=== PATIENT | female | born 1950 | race Caucasian/White ===

== ENCOUNTER 2023-01-03 10:15 | Day surgery (SDC) | payer MEDICARE, OTHER, SELFPAY ==
[2023-01-03 11:15] VITALS: BP 166/97; PULSE 60; RESP 16; TEMP 36.7; O2SAT 97
--- NOTE | 2023-01-03 11:44 | W.PM.PROCNOT ---
Date of procedure: 01/03/23 Procedure: Bilateral Lumbar 4/5 & 5/Sacral 1 facet injection Preop diagnosis includes pain secondary to lumbar spondylosis, Postop diagnosis same Under fluoroscopic guidance Solution injected: 2millilitersMarcaine 0.25% Anesthesia :none Immediate complications none Time out process compliant After informed consent obtained from the patient placed in the Prone proposition . area was prepped and draped in a sterile fashion using betadine. 25 gauge spinal needle inserted over each of the above mentioned target areas . [place]rum[place] were directed towards the target under fluoroscopic guidance . after encountering each of the targets , no indication of intravascular intraneuronal or intrathecal needle tip placement. Then 0 .5 to 1 Milliliter was injected at each level. Crumpton removed postoperatively. patient transferred to recovery in stable condition to be discharged home after meeting criteria Surgeon: Philip Andres
[2023-01-03 11:45] VITALS: RESP 20
[2023-01-03] MEDS: BUPIVACAINE HCL 0.25% PF 25 MG/10 ML VIAL 8 ML INJ (11:45)
[2023-01-03 11:47] VITALS: BP 229/109; PULSE 63; PULSE 77; O2SAT 97
[2023-01-03 11:49] VITALS: BP 188/81
== END 2023-01-03 11:56 | disposition home or self-care (01) ==
LOC: SURGOUT 10:16
PROVIDERS: PCP Internal Medicine; Visit Provider Anesthesiology Pain Medicine
DX: M47.816 Spondylosis without myelopathy or radiculopathy, lumbar region (principal)
CPT/HCPCS: 64493; 64494

== ENCOUNTER 2023-01-17 13:12 | Outpatient (OUT) | payer MEDICARE, OTHER, SELFPAY ==
--- NOTE | 2023-01-17 17:49 | CONS_ITS ---
CONSULTATION DATE: ??01/17/2023 TO:? Jordan Castillo D.O. CHIEF COMPLAINT:? Includes left lower back pain, new onset right leg pain. HISTORY:? Patient returns today complaining of 5-7/10 pain, sharp in character in her lower back on the left side, described as sharp in character, increased with activities such as standing, walking and performing transitioning maneuvers.? Patient feels most comfortable in the semi-recumbent position.? Denies any change in bowel and bladder habits.? She does describe progressive numbness and weakness in the right lower extremity, which is new since her last visit, which is separate and distinct from her left lower back pain, which has been chronic.? IMPRESSION:? Patient with chronic pain secondary to lumbosacral spondylosis, facet joint loading pain clinically, left side worse than the right.? Patient has undergone two diagnostic medial branch blocks on the left side at L4-5, L5- S1.? She reports having at least 80% reduction in pain symptomatology in the immediate post procedural period, lasting for several hours, with recurrence of pain back to her baseline.? RECOMMENDATIONS:? I have also recommended she undergo a lumbosacral MRI without contrast to determine if there is a clinical etiology for the new onset right L5 radicular component.? In the interim, I have given her Elroy 5 mg pills, one t.i.d. p.r.n., not for daily use.? I have given her 20 pills to last her one month?s time.? I have increased her gabapentin 300 mg one in the morning, three at bedtime. As part of providing excellent, safe, comprehensive care, the following was completed at our patient's visit: 1. A medication reconciliation and review to ensure accurate knowledge of current/active medications, including asking our patients to inform us about any zwxx-pcc-fcdfrlv medications or herbal remedies/nutritional supplements/alternative remedies. 2. A review to specifically ensure our patients have had annual screening for: elevated body mass index (BMI, see intake chart for exact total), tobacco use, screening for depression, and screening for unhealthy alcohol use.? When screening is concerning, patients are provided with education and the specific recommendation to discuss the concerning health issue and treatment options with their primary care provider. DESTINEE
== END 2023-01-17 13:13 | disposition home or self-care (01) ==
LOC: PM 13:12
PROVIDERS: PCP Internal Medicine; Visit Provider Anesthesiology Pain Medicine
DX: M54.50 Low back pain, unspecified (principal); M79.604 Pain in right leg
CPT/HCPCS: G0463

== ENCOUNTER 2023-01-19 07:38 | Outpatient (OUT) | payer MEDICARE, OTHER, SELFPAY ==
--- NOTE | 2023-01-19 07:41 | MR_ITS ---
[address] [address] Patient Name: CHRISTIAN FISCHER MRN: [id number] date: 1950 Sex: F Assigned Patient Location: MRI Current Patient Location: Accession/Order Number: [id number] Exam Date: 01/19/2023 07:55 Report Date: 01/20/2023 07:02 At the request of: ISIDRO PERDOMO Procedure: MR lumbar spine wo con EXAMINATION: MR lumbar spine wo con HISTORY: Lumbar Radiculopathy ; chronic lumbar pain with bilateral leg pain and weakness COMPARISON: MRI lumbar spine 06/03/2022 TECHNIQUE: Thin FINDINGS: For the purposes of numbering, sagittal T2 image # 10 extends from the T10-11 vertebral body superiorly to the S2-3 level inferiorly. PARASPINAL AREA: Normal with no visible mass. BONES: Mild left convex curvature of lumbar spine. Minimal grade 1 anterolisthesis of L4 on 5. No fracture. CORD/CAUDA EQUINA: Normal caliber, contour, and signal intensity. DISC LEVELS: 12-L1: Early degenerative disc disease is present without focal protrusion or neural impingement. L1-L2: Moderate-marked central canal narrowing with marked right and moderate left foramen narrowing. Moderate diffuse disc bulging and moderate disc height reduction. Mild degenerative facet arthropathy. L2-L3: Moderate central canal narrowing with marked right and mild left foramen narrowing. Mild diffuse disc bulging with moderate disc height reduction. Moderate right facet arthropathy and ligamentum flavum thickening, mild on left. L3-L4: Marked central canal and moderate-marked bilateral foramen narrowing. Moderate diffuse disc bulging with moderate disc height reduction. Marked degenerative facet arthropathy and ligamentum flavum thickening bilaterally. L4-L5: Mild central canal narrowing with moderate right and marked left foramen narrowing. Mild grade 1 anterolisthesis of L4 on 5. Moderate diffuse disc bulging with marked disc height reduction. Small left paracentral/foraminal extrusion displacing the descending left L5 nerve roots. Marked degenerative facet arthropathy, left greater than right. L5-S1: Mild central canal narrowing. Marked bilateral foramen narrowing, left greater than right. Moderate diffuse disc bulging with moderate disc height reduction. Marked bilateral facet arthropathy. MR/MR lumbar spine wo con IMPRESSION: 1. Multilevel moderate-marked central canal and foramen narrowing; stable to slightly progressed compared to prior study. Electronically authenticated by: BONNY SHORE Date: 01/20/2023 07:02
== END 2023-01-19 07:39 | disposition home or self-care (01) ==
LOC: MRI 07:38
PROVIDERS: PCP Internal Medicine; Visit Provider Anesthesiology Pain Medicine
DX: M47.26 Other spondylosis with radiculopathy, lumbar region (principal)
CPT/HCPCS: 72148

== ENCOUNTER 2023-01-24 10:25 | Day surgery (SDC) | payer MEDICARE, OTHER, SELFPAY ==
[2023-01-24 10:46] VITALS: BP 173/98; PULSE 86; RESP 16; TEMP 36.4; O2SAT 100
--- NOTE | 2023-01-24 10:57 | W.PM.PROCNOT ---
Date of procedure: 01/24/23 Pre-op diagnosis: Lumbar Spondylosis Post-op diagnosis: same Procedure: Left Lumbar L3,4,5 Radiofrequency Ablation Under fluoroscopic guidance Rhizotomy was created using radio frequency ablation at 80?C for 90 seconds 1 to 2 lesions created at each site. Post lesioning injection of 2 mL each of 0.25% Marcaine and 2% lidocaine with Depo-Medrol 40mg. 0.5 to 1 mL injected at each site Anesthesia: local 2% lidocaine Time out process compliant After informed consent obtained.Patient brought to the procedure room placed in the prone position skin overlying the area was prepped and draped in a sterile fashion using betadine. 25 gauge needle was used to create a skin wheal over each of the targeted areas utilizing 2% lidocaine. A rhizotomy needle with a 10 mm active tip was inserted over each of the anesthetized areas and directed towards each of the medial branches accomplished under fluoroscopic guidance. after encountering the same we had positive sensory stimulation, negative motor stimulation was noted. lesions were then created. Post lesioning, steroid solution was injected needles removed. Patient was transferred to recovery room in stable condition to be discharged home after meeting criteria. Surgeon: Philip Andres
[2023-01-24 11:18] VITALS: RESP 20
[2023-01-24 11:24] VITALS: BP 169/77; PULSE 66; O2SAT 97
[2023-01-24] MEDS: METHYLPREDNISOLONE ACETATE 40 MG/ML VIAL INJ (11:28)
[2023-01-24] MEDS: LIDOCAINE HCL 2% 400 MG/20 ML MDV 15 ML INJ (11:28)
[2023-01-24] MEDS: BUPIVACAINE HCL 0.25% PF 25 MG/10 ML VIAL 4 ML INJ (11:28)
[2023-01-24 11:30] VITALS: PULSE 42; O2SAT 93
[2023-01-24 11:32] VITALS: BP 94/55
--- NOTE | 2023-01-24 11:42 | PC.NURSE ---
PT BECAME KYRA CARDIC WITH NAUSEA, AND DIAPHORETIC PRIOR TO ABLATION CASE CANCELLED AFTER INJECTIONS GIVEN
[2023-01-24 11:48] VITALS: BP 128/78; PULSE 69; RESP 16; O2SAT 99
== END 2023-01-24 11:52 | disposition home or self-care (01) ==
LOC: SURGOUT 10:27
PROVIDERS: PCP Internal Medicine; Visit Provider Anesthesiology Pain Medicine
DX: M47.816 Spondylosis without myelopathy or radiculopathy, lumbar region (principal); Z53.09 Procedure and treatment not carried out because of other contraindication; R55 Syncope and collapse
CPT/HCPCS: 64635; 64636; J1030

== ENCOUNTER 2023-02-06 07:25 | Day surgery (SDC) | payer MEDICARE, OTHER, SELFPAY ==
[2023-02-06 07:39] VITALS: BP 146/91; PULSE 82; RESP 16; TEMP 36.7; O2SAT 98
[2023-02-06] MEDS: 0.9 % SODIUM CHLORIDE 500 ML 50 ML IV (07:51)
[2023-02-06] MEDS: BUPIVACAINE HCL 0.25% PF 25 MG/10 ML VIAL INJ (08:37)
[2023-02-06] MEDS: LIDOCAINE HCL 2% 400 MG/20 ML MDV 15 ML INJ (08:37)
[2023-02-06] MEDS: TRIAMCINOLONE ACETONIDE 40 MG/ML VIAL INJ (08:37)
--- NOTE | 2023-02-06 08:46 | P.ON_ITS ---
Date of procedure: 02/06/23 Pre-op diagnosis: Lumbosacral spondylosis Post-op diagnosis: same Procedure: Left L3-4, L4-5 radiofrequency ablation Medications: Bupivacaine 0.25% 3cc, kenalog 40mg The patient was seen and examined in the preoperative holding area.? The site was marked.? Written informed consent was obtained and placed on the chart.? The patient was brought to the medical procedure unit and placed in the prone position.? A timeout was completed verifying correct patient, procedure, positioning, and special requirements.? The skin overlying the target points, the designated medial branch, were prepped and draped in the usual sterile fashion.? The target point was achieved with a 20-gauge 15 cm with a 10 mm curved active tip radiofrequency cannula under direct fluoroscopic visualization.? The needle was inserted at level L3 on the left side. Needle tip position was confirmed with lateral fluoroscopic position.? Motor stimulation was carried out at 2 Hz up to 5 volts with the absence of extremity activity.? This was repeated at level L4, L5 on left side.?? Sensory stimulation was carried out.? Concordant pain was realized at the above- mentioned sites.? Then radiofrequency lesioning was carried out times 90 seconds at 80 degrees times 2 lesions at each level.? The radiofrequency probe was removed prior to cannula removal.? The above-mentioned injectate was placed in 1 mL increments.? The needle was removed.? Insertion sites were covered.? The pat ient was taken to the postoperative recovery area and monitored for an appropriate length of time before being found suitable for discharge in the company of a responsible adult. Anesthesia: Moderate Sedation Surgeon: Jessica Mi Pathology: none sent Condition: stable Disposition: no change
[2023-02-06 08:53] VITALS: BP 115/88; PULSE 65; RESP 16; TEMP 36.4; O2SAT 96
[2023-02-06 08:56] VITALS: BP 131/78; PULSE 71; RESP 16; TEMP 36.4; O2SAT 97
== END 2023-02-06 09:08 | disposition home or self-care (01) ==
LOC: SURGOUT 07:26
PROVIDERS: PCP Internal Medicine; Visit Provider Anesthesiology
DX: M47.817 Spondylosis without myelopathy or radiculopathy, lumbosacral region (principal)
CPT/HCPCS: 64635; 64636; J2704

== ENCOUNTER 2023-02-09 06:36 | Outpatient (OUT) | payer MEDICARE, OTHER, SELFPAY ==
[2023-02-09 06:58] LABS: Basophils Percent Auto 0.5 % (0.2-2.0); Eosinophils Percent Auto 0.5 % (0.9-7.0); Hematocrit 41.8 % (36.0-48.0); Immature Granulocytes Abs Auto 0.04 10^3/uL (0.00-0.03); Immature Granulocytes Pct Auto 0.6 % (0.0-0.5); Lymphocytes Absolute Auto 1.4 10^3/uL (1.2-3.8); Lymphocytes Percent Auto 20.9 % (20.5-60.0); Mean Corpuscular HGB Conc 33.5 g/dL (29.9-35.2); Mean Corpuscular Hemoglobin 30.8 pg (26.7-34.0); Mean Corpuscular Volume 91.9 fL (81.0-99.0); Mean Platelet Volume 9.8 fL (9.5-13.5); Monocytes Absolute Auto 0.5 10^3/uL (0.3-0.8); Monocytes Percent Auto 7.5 % (1.7-12.0); Neutrophils Absolute Auto 4.7 10^3/uL (1.4-6.5); Platelet Count 169 10^3/uL (150-450); Red Blood Count 4.55 10^6/uL (4.20-5.40); Red Cell Distribution Width 12.6 % (11.0-15.0); White Blood Count 6.7 10^3/uL (4.0-11.0)
[2023-02-09 07:12] LABS: Anion Gap 11.6; BUN Creatinine Ratio 17.8; Carbon Dioxide 27.6 mmol/L (21.0-32.0); Chloride 106 mmol/L (98-107); Chol HDL Ratio 4.6; Cholesterol 286 mg/dL (<=200); Estimated GFR (African America >60 (>=60); Estimated GFR (Non-African Ame 54 (>=60); Glucose 108 mg/dL (74-106); HDL Cholesterol 62 mg/dL (40-60); Potassium 4.2 mmol/L (3.5-5.1); Sodium 141 mmol/L (136-145); Triglycerides 145 mg/dL (<=150)
== END 2023-02-09 06:37 | disposition home or self-care (01) ==
LOC: LAB 06:38
PROVIDERS: PCP Internal Medicine; Visit Provider Internal Medicine
DX: E78.01 Familial hypercholesterolemia (principal); I10 Essential (primary) hypertension; Z79.899 Other long term (current) drug therapy
CPT/HCPCS: 36415; 80048; 80061; 85025

== ENCOUNTER 2023-02-16 09:08 | Day surgery (SDC) | payer MEDICARE, OTHER, SELFPAY ==
[2023-02-16 09:41] VITALS: BP 142/85; PULSE 75; RESP 16; TEMP 36.7; O2SAT 98
[2023-02-16 10:21] VITALS: BP 165/84; BP 180/86; PULSE 58; PULSE 65; RESP 20; O2SAT 97; O2SAT 98
[2023-02-16] MEDS: BUPIVACAINE HCL 0.25% PF 25 MG/10 ML VIAL 2 ML INJ (10:36)
[2023-02-16] MEDS: 0.9 % SODIUM CHLORIDE 10 ML SYRINGE - SALINE FLUSH 2 ML INJ (10:36)
[2023-02-16] MEDS: METHYLPREDNISOLONE ACETATE 80 MG/ML VIAL INJ (10:37)
[2023-02-16] MEDS: IOHEXOL 240 MG/ML - 10 ML VIAL INJ (10:37)
[2023-02-16] MEDS: LIDOCAINE HCL 2% PF 100 MG/5 ML VIAL 4 ML INJ (10:37)
--- NOTE | 2023-02-16 11:33 | P.ON_ITS ---
Date of procedure: 02/16/23 Pre-op diagnosis: lumbar stenosis Post-op diagnosis: same as pre-op Procedure: Epidural Steroid Injection Under fluoroscopic guidance Immediate complications none Solution used for injection: Marcaine 0.25% 2mL, 2cc Normal saline, Depo-Medrol 80mg Omnipaque 3 mL Anesthesia local 2% lidocaine up to 4ml Timeout process compliant After informed consent obtained. Patient brought to the procedure room placed in the prone position. Skin overlying the area was prepped and draped in a sterile fashion using betadine. 25 gauge needle used to raise a skin wheel with local anesthetic over the target area identified under fluoroscopy. A 17 gauge Touhy needle Was inserted over the anesthetized area and directed towards the inter- space under fluoroscopic guidance. Epidural space was identified with loss of resistance technique to air. Needle Tip placement confirmed with injection of contrast solution. Steroid solution was then injected. Anesthesia: Local Surgeon: Philip Andres Condition: stable
== END 2023-02-16 10:23 | disposition home or self-care (01) ==
LOC: SURGOUT 09:09
PROVIDERS: PCP Internal Medicine; Visit Provider Anesthesiology Pain Medicine
DX: M48.061 Spinal stenosis, lumbar region without neurogenic claudication (principal); M54.16 Radiculopathy, lumbar region
CPT/HCPCS: 62323; J1040; Q9966

== ENCOUNTER 2023-02-21 13:45 | Outpatient (OUT) | payer MEDICARE, OTHER, SELFPAY ==
--- NOTE | 2023-02-21 | CONS_ITS ---
CONSULTATION DATE: ??02/21/2023 TO:? Dr. Castillo HISTORY:? Patient returns today complaining of pain in her right hamstring area.? She reports this happened after going to physical therapy, and she reports that she felt like she ?pulled something?.? She, otherwise, reports the pain as being 2-5/10, deep aching in character.? There seems to be aching in her lower back, occurring sporadically.? The pain is increased with activities such as standing, walking and performing transitioning maneuvers.? Patient feels most comfortable in the semi-recumbent position.? Denies any change in bowel and bladder habits or new sensorimotor changes in the lower extremities. EXAM:? Her exam is notable for patient having no clinical radiculopathy or myelopathy involving the lower extremities.? Patient had a significant amount of tightness around her right hamstrings, especially on the medial head. IMPRESSION:? Our impression is patient appears to have chronic pain secondary to right hamstring strain. RECOMMENDATIONS:? I have asked her to restart physical therapy with passive modalities. I have increased her baclofen 10 mg pills, one-quarter to one pill up to t.i.d. as tolerated.? Will see the patient back in the office in approximately two months? time or sooner as needed. As part of providing excellent, safe, comprehensive care, the following was completed at our patient's visit: 1. A medication reconciliation and review to ensure accurate knowledge of current/active medications, including asking our patients to inform us about any imeh-uus-batvbks medications or herbal remedies/nutritional supplements/alternative remedies. 2. A review to specifically ensure our patients have had annual screening for: elevated body mass index (BMI, see intake chart for exact total), tobacco use, screening for depression, and screening for unhealthy alcohol use.? When screening is concerning, patients are provided with education and the specific recommendation to discuss the concerning health issue and treatment options with their primary care provider. DESTINEE
== END 2023-02-21 13:46 | disposition home or self-care (01) ==
LOC: PM 13:46
PROVIDERS: PCP Internal Medicine; Visit Provider Anesthesiology Pain Medicine
DX: S86.811A Strain of other muscle(s) and tendon(s) at lower leg level, right leg, initial encounter (principal); G89.29 Other chronic pain
CPT/HCPCS: G0463

== ENCOUNTER 2023-03-06 12:53 | Outpatient (RCR) | payer MEDICARE, OTHER, SELFPAY | END 2023-03-29 16:39 | disposition home or self-care (01) | LOC: PT 12:53 | PROVIDERS: PCP Internal Medicine; Visit Provider Anesthesiology Pain Medicine | DX: S76.311D Strain of muscle, fascia and tendon of the posterior muscle group at thigh level, right thigh, subsequent encounter (principal) | CPT/HCPCS: 97010; 97035; 97110; 97140; 97161; 97530; G0283 ==

== ENCOUNTER 2023-03-28 14:58 | Outpatient (OUT) | payer MEDICARE, OTHER, SELFPAY ==
--- NOTE | 2023-03-28 | CONS_ITS ---
CONSULTATION DATE: ??03/28/2023 TO:? Dr. Castillo CHIEF COMPLAINT:? Includes severe right lower back pain. HISTORY:? Patient presented today complaining of 6-7/10 pain in her right lower back, described as sharp pain, increased with activities such as standing, walking and performing transitioning maneuvers.? She feels most comfortable in the semi-recumbent position.? Denies any change in bowel and bladder habits or new sensorimotor changes in the lower extremities. MEDICATIONS:? Current medications include gabapentin 300 mg in the morning and 900 mg at h.s.? She reports she does not think this is helping her symptoms at all, and she is also on baclofen 10 mg, two pills at h.s., which offers her moderate reduction in pain symptoms.? She denies any side effects with the baclofen. EXAM:? Notable for patient having no clinical radiculopathy or myelopathy involving the lower extremities.? She has severe pain with lumbar facet loading maneuvers on the right side from L4 through S1 with associated myofascial spasm of the lumbar paravertebral muscles.? IMPRESSION:? Patient appears to have chronic pain secondary to lumbosacral spondylosis on the right side involving L4-5, L5-S1 on the right side.? She has undergone one right sided diagnostic facet joint injection at L4-5 and L5-S1.? She reports she did receive 85% reduction in pain symptoms starting in the immediate post procedural period, lasting or several hours, with recurrence of pain back to her baseline.? RECOMMENDATIONS:? I have recommended repeating the right sided L4-5, L5-S1 facet joint injection once again to establish reliability.? In the interim, I have asked her to wean off the gabapentin and we have given her a weaning protocol, and we will start her on Zonegran concomitantly, 650 mg pills, 1-2 at h.s. as tolerated.? Also, of note, we discussed possible surgical intervention.? At this point, she reports that she would like to avoid lumbar surgery if at all possible. As part of providing excellent, safe, comprehensive care, the following was completed at our patient's visit: 1. A medication reconciliation and review to ensure accurate knowledge of current/active medications, including asking our patients to inform us about any zcjx-ybq-iepmieh medications or herbal remedies/nutritional supplements/alternative remedies. 2. A review to specifically ensure our patients have had annual screening for: elevated body mass index (BMI, see intake chart for exact total), tobacco use, screening for depression, and screening for unhealthy alcohol use.? When screening is concerning, patients are provided with education and the specific recommendation to discuss the concerning health issue and treatment options with their primary care provider. DESTINEE
== END 2023-03-28 14:59 | disposition home or self-care (01) ==
LOC: PM 14:58
PROVIDERS: PCP Internal Medicine; Visit Provider Anesthesiology Pain Medicine
DX: M47.817 Spondylosis without myelopathy or radiculopathy, lumbosacral region (principal); G89.29 Other chronic pain
CPT/HCPCS: G0463

== ENCOUNTER 2023-04-11 07:52 | Day surgery (SDC) | payer MEDICARE, OTHER, SELFPAY ==
[2023-04-11 08:27] VITALS: BP 126/80; PULSE 77; RESP 16; TEMP 36.4; O2SAT 96
[2023-04-11] MEDS: BUPIVACAINE HCL 0.25% PF 25 MG/10 ML VIAL INJ (09:23)
--- NOTE | 2023-04-11 10:01 | P.ON_ITS ---
Date of procedure: 04/11/23 Pre-op diagnosis: lumbar spondylosis Post-op diagnosis: same as pre-op Procedure: Right lumbar 4/5, 5/sacral 1 medial branch block Under fluoroscopic guidance Solution injected: 2millilitersMarcaine 0.25% Anesthesia :none Immediate complications none Time out process compliant After informed consent obtained from the patient placed in the Prone proposition . area was prepped and draped in a sterile fashion using Cloraprep .25 gauge spinal needle inserted over each of the above mentioned target areas . [place] were directed towards the target under fluoroscopic guidance . after encountering each of the targets , no indication of intravascular intraneuronal or intrathecal needle tip placement. Then 0 .5 to 1 Milliliter was injected at each level. [place] removed postoperatively. patient transferred to recovery in stable condition to be discharged home after meeting criteria Anesthesia: Local Surgeon: Philip Andres Condition: stable
[2023-04-13 13:23] VITALS: BP 157/78; BP 160/76; PULSE 61; PULSE 69; RESP 18; O2SAT 98; O2SAT 99
== END 2023-04-11 09:30 | disposition home or self-care (01) ==
LOC: SURGOUT 07:52
PROVIDERS: PCP Internal Medicine; Visit Provider Anesthesiology Pain Medicine
DX: M47.816 Spondylosis without myelopathy or radiculopathy, lumbar region (principal)
CPT/HCPCS: 64493; 64494

== ENCOUNTER 2023-04-26 09:19 | Outpatient (OUT) | payer MEDICARE, OTHER, SELFPAY ==
--- NOTE | 2023-04-26 09:33 | PM.CN ---
Consult Note: HPI Data of Consult Patient: known to practice within the last 3 years Requesting Physician: Myra Rosenthal NP Primary Care Provider: Jordan Castillo DO Consult Narrative Reason for consult: Procedure F/u Narrative: Shoshana Noyola a pleasant 72 year old female presents for evaluation and management of chronic low back pain. Recently underwent MBB #2 at right L4-5 L5-S1 with 80% pain relief and functional improvement immediately following and hours after the procedure. Today rating pain 5/10. Would like to discuss proceeding with thermal RFA. cc:: CC: Myra Rosenthal NP Review of Systems ROS Status of ROS 10 or more systems reviewed and unremarkable except as noted in history and below Musculoskeletal Reports: back pain PFSH PFSH Medical History (Updated 04/26/23 @ 09:47 by Myra Rosenthal NP) Former smoker ?Z87.891 - Personal history of nicotine dependence (ICD-10) High cholesterol ?E78.00 - Pure hypercholesterolemia, unspecified (ICD-10) Low back pain ?M54.50 - Low back pain, unspecified (ICD-10) Obesity ?E66.9 - Obesity, unspecified (ICD-10) Surgical History H/O fasciotomy ?Z98.890 - Other specified postprocedural states (ICD-10) H/O lumbosacral spine surgery ?Z98.890 - Other specified postprocedural states (ICD-10) H/O shoulder surgery ?Z98.890 - Other specified postprocedural states (ICD-10) History of hysteroscopy ?Z98.890 - Other specified postprocedural states (ICD-10) History of tonsillectomy and adenoidectomy ?Z90.89 - Acquired absence of other organs (ICD-10) Meds Home Medications and Allergies Home Medications Medication Instructions Recorded Confirmed Type baclofen 10 mg tablet 10 mg PO TID PRN muscle spasm 12/30/22 04/11/23 History gabapentin 300 mg capsule 900 mg PO .hs 12/30/22 04/11/23 History ibuprofen 600 mg tablet 600 mg PO .QD PRN pain 12/30/22 04/11/23 History multivitamin with folic acid 400 tab PO .QD 12/30/22 History mcg tablet (Daily-Carla (with folic acid)) gabapentin 300 mg capsule 300 mg PO .am 01/18/23 04/11/23 History (Neurontin) hydrocodone 5 mg-acetaminophen 325 1 tab PO DAILY PRN pain 01/18/23 04/11/23 History mg tablet amlodipine 5 mg tablet mg 02/16/23 History Allergies Allergy/AdvReac Type Severity Reaction Status Date / Time No Known Drug Allergies Allergy Verified 04/11/23 08:26 Exam Constitutional Documenting provider has reviewed patient's vital signs: yes Common normals: no apparent distress, oriented x3, healthy appearing, alert and well nourished General appearance: cooperative HENPA Common normals: normocephalic, hearing grossly normal bilaterally and moist oral mucous membranes Head and scalp: normocephalic Eye Common normals: PERRL Pupil: PERRL Neck & C-Spine Common normals: full ROM General: normal visual inspection Chest Common normals: inspection of chest normal Respiratory Common normals: normal respiratory effort, no retractions and no use of accessory muscles Back & Pelvis Lumbar spine/lower back: ROM limited and pain with ROM Sacroiliac joints: SI joints normal Other: positive facet loading axial low back pain Neuro Common normals: oriented x3, CN's II-XII intact bilaterally, moves all extremities, no focal motor deficits, no sensory deficits noted and deep tendon reflexes 2+ bilaterally Sensorium/orientation: alert Motor exam: strength 5/5 throughout and no movement abnormalities noted Psych Common normals: mental status grossly normal, thought process normal, cooperative, affect normal, speech normal and activity/motor behavior normal Speech: normal speech Thought process: normal thought process Results Additional Findings Additional findings: I have checked an [place] report on this patient today and there are no aberrancies noted in the prescribing history.?? A drug screen was completed and reviewed within the last year, and if there has not been a drug screen completed we ordered one today to monitor higher risk, state monitored pain medication use. As part of providing excellent, safe, comprehensive care, the following was completed at our patient's visit: 1. A medication reconciliation and review to ensure accurate knowledge of current/active medications, including asking our patients to inform us about any jtjh-ksp-zjsjevb medications or herbal remedies/nutritional supplements/alternative remedies. 2. A review to specifically ensure our patients have had annual screening for: elevated body mass index (BMI), tobacco use, screening for depression, and screening for unhealthy alcohol use. When screening is concerning, patients are provided with education and the specific recommendation to discuss the concerning health issue and treatment options with their primary care provider. Assessment and Plan Assessment and Plan (1) Lumbar spondylosis: Assessment and Plan: The patient has had over 3 months of moderate to severe pain with functional impairment and inadequate response to conservative care including NSAIDS (unless there are contraindication such as concurrent blood thinners), multiple oral or topical pain medications, and home exercise program/physical therapy.? Patient has completed >6 weeks of guided home exercise program and/or formal physical therapy program without relief of their symptoms.? I have reviewed the imaging of the lumbar spine and no red flags were identified.? The imaging reveals radiographic findings consistent with lumbar spondylosis The procedure will be completed with fluroscopy guidance.? (2) Neuropathic pain of right lower extremity: Plan -proceed with thermal RFA at right L4-5 L5-S1 with IV sedation under fluoroscopy, patient did pass out during a previous MBB -continue HEP -increase zonegran to 150mg daily for right lower leg neuropathic pain -continue f/u with [facility] -f/u 1 month after RFA
== END 2023-04-26 09:20 | disposition home or self-care (01) ==
LOC: PM 09:20
PROVIDERS: PCP Internal Medicine; Visit Provider Nurse Practitioner
DX: M47.896 Other spondylosis, lumbar region (principal); M79.661 Pain in right lower leg
CPT/HCPCS: G0463

== ENCOUNTER 2023-05-16 06:37 | Day surgery (SDC) | payer MEDICARE, OTHER, SELFPAY ==
[2023-05-16 06:50] VITALS: BP 137/81; PULSE 88; RESP 16; O2SAT 99
[2023-05-16] MEDS: 0.9 % SODIUM CHLORIDE 500 ML 50 ML IV (07:02)
[2023-05-16] MEDS: LIDOCAINE HCL 2% 400 MG/20 ML MDV 8 ML INJ (07:41)
[2023-05-16] MEDS: BUPIVACAINE HCL 0.25% PF 25 MG/10 ML VIAL 4 ML INJ (07:41)
[2023-05-16] MEDS: METHYLPREDNISOLONE ACETATE 40 MG/ML VIAL INJ (07:42)
[2023-05-16 07:56] VITALS: BP 134/75; PULSE 81; RESP 16; TEMP 36.7; O2SAT 98
[2023-05-16 08:00] VITALS: BP 120/66; PULSE 81; RESP 16; TEMP 36.7; O2SAT 96
--- NOTE | 2023-05-16 09:18 | W.PM.PROCNOT ---
Date of procedure: 05/16/23 Pre-op diagnosis: lumbar spondylosis Post-op diagnosis: same as pre-op Procedure: Right Lumbar 4/5 5/sacral 1 Radiofrequency ablation Under fluoroscopic guidance Rhizotomy was created using radio frequency ablation at 80?C for 90 seconds 1 to 2 lesions created at each site. Post lesioning injection of 2 mL each of 0.25% Marcaine and 2% lidocaine with Depo-Medrol 40mg. 0.5 to 1 mL injected at each site IV in place yes If Intravenous fluids: NS at KVO Anesthesia local 2% lidocaine for Anesthesia Other: MAC Timeout process compliant After informed consent obtained.Patient brought to the procedure room placed in the prone position skin overlying the area was prepped and draped in a sterile fashion using betadine. 25 gauge needle was used to create a skin wheal over each of the targeted areas utilizing 2% lidocaine. A rhizotomy needle with a 10 mm active tip was inserted over each of the anesthetized areas and directed towards each of the medial branches accomplished under fluoroscopic guidance. after encountering the same we had positive sensory stimulation, negative motor stimulation was noted. lesions were then created. Post lesioning, steroid solution was injected needles removed. Patient was transferred to recovery room in stable condition to be discharged home after meeting criteria. Anesthesia: MAC Surgeon: Philip Andres Condition: stable
== END 2023-05-16 08:17 | disposition home or self-care (01) ==
LOC: SURGOUT 06:38
PROVIDERS: PCP Internal Medicine; Visit Provider Anesthesiology Pain Medicine
DX: M47.816 Spondylosis without myelopathy or radiculopathy, lumbar region (principal)
CPT/HCPCS: 64635; 64636; J1030; J2704

== ENCOUNTER 2023-06-13 14:15 | Outpatient (OUT) | payer MEDICARE, OTHER, SELFPAY ==
--- NOTE | 2023-06-13 | CONS_ITS ---
CONSULTATION DATE: 06/13/2023 HISTORY: She returns today complaining of progressive pain in her left lower extremity from approximately the hip on down to approximately the calf area. She denied any change in bowel and bladder habits or new sensory changes in her lower extremities. EXAM: Her examination is notable for patient having no clinical myelopathy on examination. Patient had weakness on the left lower extremity rated 3/5 strength; however, she had no hypoesthesia along any dermatome in her lower extremities. She had a depressed left patellar reflex and straight leg raise was positive at 90 degrees. She had associated myofascial spasm of the lumbar paravertebral muscles. IMPRESSION: Patient with chronic pain. She has known spinal stenosis with what appears to be left L3-L4 radicular features. RECOMMENDATIONS: I have asked her to consider caudal epidural steroid injection under fluoroscopic guidance. I have asked her to maintain her use of Zonegran 50 mg pills, 2-3 pills at bedtime as tolerated, as well as baclofen 10 mg at h.s. As part of providing excellent, safe, comprehensive care, the following was completed at our patient's visit: 1. A medication reconciliation and review to ensure accurate knowledge of current/active medications, including asking our patients to inform us about any [id number] medications or herbal remedies/nutritional supplements/alternative remedies. 2. A review to specifically ensure our patients have had annual screening for: elevated body mass index (BMI, see intake chart for exact total), tobacco use, screening for depression, and screening for unhealthy alcohol use. When screening is concerning, patients are provided with education and the specific recommendation to discuss the concerning health issue and treatment options with their primary care provider. DESTINEE
== END 2023-06-13 14:16 | disposition home or self-care (01) ==
LOC: PM 14:15
PROVIDERS: PCP Internal Medicine; Visit Provider Anesthesiology Pain Medicine
DX: G89.29 Other chronic pain (principal); M48.061 Spinal stenosis, lumbar region without neurogenic claudication
CPT/HCPCS: G0463

== ENCOUNTER 2023-07-18 07:25 | Day surgery (SDC) | payer MEDICARE, OTHER, SELFPAY ==
--- OUTSIDE RECORDS SUMMARY | 2023-07-18 07:30 | XMS_ITS | CCD ---
Author Name Unknown Address [address] [place] [address] Organization [facility] Care Team Providers Care Mortuary Operations Manager Name Role Phone Unavailable Primary Care Provider Unavaildragan e JORGE DESAI Attending Unavailable LAKSHMIPATHY ., NARENDRANATH Consulting Demi vailable HALKER ., NILSA Attending Unavailable HALKER ., NILSA Admitting Unavailable DR JORDAN CASTILLO Primary Care Unavailable LAKSHMIPATHY ., NARENDRANATH Consulting Demi vailable LAKSHMIPATHY ., NARENDRANATH Attending Demi vailable LAKSHMIPATHY ., NARENDRANATH Admitting Demi vailable DR JORDAN CASTILLO Primary Care Unavailable LAKSHMIPATHY ., NARENDRANATH Consulting Demi vailable LAKSHMIPATHY ., NARENDRANATH Attending Demi vailable LAKSHMIPATHY ., NARENDRANATH Admitting Demi vailable DR JORDAN CASTILLO Primary Care Unavailable LAKSHMIPATHY ., NARENDRANATH Consulting Demi vailable LAKSHMIPATHY ., NARENDRANATH Attending Demi vailable LAKSHMIPATHY ., RODNEYENDJUAN DAVIDATH Admitting Demi vailable DR JORDAN CASTILLO Primary Care Unavailable LAKSHMIPATHY ., NARENDRANATH Consulting Demi vailable LAKSHMIPATHY ., NARENDRANATH Attending Demi vailable LAKSHMIPATHY ., RODNEYENDRANATH Admitting Demi vailable DR JORDAN CASTILLO Primary Care Unavailable GREWAL .NEHA Consulting Unavailable LAKSHMIPATHY ., NARENDRANATH Admitting Demi vailable LAKSHMIPATHY ., NARENDRANATH Attending Demi vailable DR JORDAN CASTILLO Primary Care Unavailable SAMUEL ., DR ZACARIAS Garner Attending Unavailable LIZZIE ., DR ZACARIAS Garner Admitting Unavailable DR JORDAN CASTILLO Primary Care Unavailable SAMUEL ., DR ZACARIAS Garner Consulting Unavailable SAMUEL ., DR ZACARIAS Garner Consulting Unavailable SAMUEL ., DR ZACARIAS Garner Attending Unavailable JONATHAN, DR FLEMING Primary Care Unavailable LIZZIE ., DR ZACARIAS Garner Admitting Unavailable JONATHAN, DR FLEMING Primary Care Unavailable JONATHAN, DR FLEMING Consulting Unavailable JONATHAN, DR FLEMING Attending Unavailable JONATHAN, DR FLEMING Admitting Unavailable FLAQUITO, DR EMILY Cleary Consulting Unavailable JONATHAN, DR FLEMING Primary Care Unavailable MONE, DR BONNY Jain Consulting Unavailable APLING, ISABELA Perez Admitting Unavailable APLING, ISABELA Perez Attending Unavailable APLING, ISABELA Perez Consulting Unavailable URI .NEHA Attending Unavailable URI ., NEHA Admitting Unavailable JONATHAN, DR FLEMING Primary Care Unavailable Jonathan, Jordan Unavailable Hiwot PAYAN, Jessica Tavarez Attending Unavailable Allergies Allergy Classification Reported Allergen(s) Allergy Type Date of Onset Reaction(s) Facility (5 sources) patient allergy list reviewed by nurse or physicia Propensity to adverse reactions Comment:Done [employer] Other (5 sources) Allergies Reconciled Propensity to adverse reactions Unknown [employer] Other Medications Current Medications Medication Drug Class(es) Dates Sig (Normalized) Sig (Original) amLODIPine 5 mg oral tablet (9 sources) Dihydropyridine Calcium Channel Lea Start: 01-27-2023 take 1 tablet by mouth every twenty-four hours amLODIPine Besylate 5 MG 1 tablet Orally Once a day for 30 days Jan, Active amLODIPine Besyl ate TAKE 1 TABLET BY MOUTH EVERY DAY FOR 30 DAYS Orally Once a day Active amLODIPine Besyl ate TAKE 1 TABLET BY MOUTH EVERY DAY FOR 30 DAYS Orally Once a day for 90 days Active baclofen 10 mg oral tablet (9 sources) gamma-Aminobutyric Acid-ergic Agonist take 1 tablet by mouth every twenty-four hours Baclofen 10 MG 1 tablet as needed Orally Once a day Active take 2 tablets by [facility] once daily at bedtime Baclofen 10 MG 2 tablet Orally qhs Activ e calcium carbonate 1250 mg / cholecalciferol 100 unt chewable tablet (4 sources) Vitamin D take 1 tablet by mouth every twenty-four hours Calcium 500-2.5 MG-MCG 1 tablet with a meal Orally Once a day Active gabapentin 300 mg oral capsule (11 sources) Anti-epileptic Agent Start: 023 End: 023 take 1 capsule by mouth twice daily gabapentin (NEURONTIN) 300 mg capsule Take 1 capsule by mouth twice daily for 90 days. 60 capsule 2 09/05/2022 12/04/2022 Active Comment on above: Take 1 capsule by [facility] twice daily for 90 days. ibuprofen 200 mg oral tablet (9 sources) Nonsteroidal Anti-inflammatory Drug Start: 022 take 2 tablets by mouth once daily at mealtime as needed Ibuprofen 200 MG 2 tablets with food or milk as needed Orally once a day Sep, Active Start: 09-26-2021 Ibuprofen 200M G Ibuprofen( 200MG Oral as needed ) Active -Hx Entry Oral as needed Sep, Active Multi For Her - (4 sources) Multi For Her - as directed Orally Active olmesartan medoxomil 20 mg oral tablet (8 sources) Angiotensin 2 Receptor Lea Start: 3 take 1 tablet by mouth every twenty-four hours Olmesartan Medoxomil 20 MG 1 tablet Orally Once a day for 90 days May, Active paxlovid (300/100) 20 x 150 mg & 10 x 100mg tablet therapy pack (1 source) Start: 3 Paxlovid (300/100) 20 x 150 MG & 10 x 100MG as directed Orally bid for 5 days Jun, Active rosuvastatin calcium 5 mg oral tablet (4 sources) HMG-CoA Reductase Inhibitor Start: 3 take 1 tablet by mouth every twenty-four hours Rosuvastatin Calcium 5 MG 1 tablet Orally Once a day for 30 days May, Active Completed/Discontinued Medications Medication Drug Class(es) Dates Sig (Normalized) Sig (Original) cholecalciferol 0.125 mg oral capsule (2 sources) Vitamin D Start: 08-28-2022 take 1 capsule by mouth three times weekly Cholecalciferol, Vitamin D3, 125 mcg (5,000 unit) cap Take 5,000 Units by mouth three times a week. 0 08/28/2022 Active Comment on above: Take 5,000 Units by mouth three times a week. DAILY-SAÚL, WITH FOLIC ACID, 400 mcg (2 sources) Start: 07-19-2022 take 1 tablet by mouth once daily DAILY-SAÚL, WITH FOLIC ACID, 400 mcg Take 1 tablet by mouth once daily. 0 07/19/2022 Active Comment on above: Take 1 tablet by mary once daily. MULTI-VITAMIN ORAL (2 sources) MULTI-VITAMIN ORAL Take by mouth once daily. 0 Active Comment on above: Take by mouth once d aily. nitrofurantoin, macrocrystals 25 mg / nitrofurantoin, monohydrate 75 mg oral capsule (5 sources) Nitrofuran Antibacterial Start: 08-14-2016 take 1 capsule by mouth every twelve hours Macrobid 100 MG 1 capsule with food Orally every 12 hrs for 7 day(s) Aug, Not-Taking VITAMINS B COMPLEX capsule (2 sources) Start: 07-19-2022 take 1 capsule by mouth once daily VITAMINS B COMPLEX capsule Take 1 capsule by mouth once daily. 0 07/19/2022 Active Comment on above: Take 1 capsule by mo [facility] once daily. Problems Active Problems Problem Classification Problem Date Documented Da te Episodic/Chronic Acquired foot deformities (9 sources) Disorder of ankle; Translations: [Valgus deformity, not elsewhere classified, right ankle] Episodic Disorders of lipid metabolism (10 sources) Pure hypercholesterolemia; Translations: [Familial hypercholesterolemia] Chronic E Codes: Adverse effects of medical drugs (1 source) Adverse effect of other antihypertensive drugs, initial encounter Episodic Esophageal disorders (4 sources) Gastro-esophageal reflux disease with esophagitis; Translations: [Gastroesophageal reflux disease with esophagitis without hemorrhage] Chronic Essential hypertension (15 sources) Essential hypertension; Translations: [Essential (primary) hypertension] Chronic Multiple sclerosis (9 sources) Multiple sclerosis; Translations: [Multiple sclerosis] Chronic Osteoarthritis (9 sources) Localized, primary osteoarthritis of the shoulder region; Translations: [Primary osteoarthritis, right shoulder] Chronic Other acquired deformities (1 source) Degenerative scoliosis; Translations: [Other secondary scoliosis, site unspecified] Chronic Other acquired deformities (1 source) Other secondary scoliosis, site unspecified; Translations: [Degenerative scoliosis] Onset: 3 Chronic Other connective tissue disease (2 sources) Pain in left leg; Translations: [PAIN IN LEFT LEG] Onset: 3 Episodic Other connective tissue disease (1 source) Pain in right leg Episodic Other female genital disorders (9 sources) Other specified conditions associated with female genital organs and menstrual cycle; Translations: [Oth cond assoc w female genital organs and menstrual cycle] Episodic Other gastrointestinal disorders (1 source) Drug induced constipation Episodic Other gastrointestinal disorders (2 sources) Oropharyngeal dysphagia; Translations: [Dysphagia, oropharyngeal phase] Episodic Other gastrointestinal disorders (1 source) Dysphagia, oropharyngeal phase Episodic Other nervous system disorders (5 sources) Other chronic pain; Translations: [OTHER CHRONIC PAIN] Onset: 3 Chronic Other nutritional; endocrine; and metabolic disorders (9 sources) Body mass index 30+ - obesity; Translations: [Body mass index (BMI) 33.0-33.9, adult] Chronic Other nutritional; endocrine; and metabolic disorders (9 sources) Obesity caused by energy imbalance; Translations: [Other obesity due to excess calories] Chronic Retinal detachments; defects; vascular occlusion; and retinopathy (5 sources) Hypertensive retinopathy; Translations: [Hypertensive retinopathy, bilateral] Chronic Spondylosis; intervertebral disc disorders; other back problems (20 sources) Spondylosis without myelopathy or radiculopathy, lumbosacral region; Translations: [Spondylosis without myelopathy or radiculopathy, lumbar region] Onset: 3 Chronic Spondylosis; intervertebral disc disorders; other back problems (15 sources) Radiculopathy, lumbar region; Translations: [Spinal stenosis, site unspecified] Onset: 3 Episodic Unclassified (3 sources) LOW BACK PAIN, UNSPECIFIED; Translations: [LOW BACK PAIN, UNSPECIFIED] Onset: 3 Past or Other Problems Problem Classification Problem Date Documented Da te Episodic/Chronic Benign neoplasm of uterus (9 sources) Uterine leiomyoma; Translations: [Leiomyoma of uterus, unspecified] Resolved: 04-13-2017 Episodic Esophageal disorders (5 sources) Esophageal disorders; Translations: [Gastroesophageal reflux disease with esophagitis without hemorrhage] Other screening for suspected conditions (not mental disorders or infectious disease) (4 sources) Encounter for screening mammogram for malignant neoplasm of breast; Translations: [ENC SCR MAMMO MALIG NEOPLASM BREAST] Onset: 07-27-2022 Episodic Residual codes; unclassified (1 source) Family history of malignant neoplasm of breast; Translations: [FAMILY HX MALIG NEOPLASM OF BREAST] Onset: 08-01-2022 Episodic Residual codes; unclassified (1 source) Family history of malignant neoplasm of digestive organs; Translations: [FAM HX MALIG NEOPLASM DIGESTIV ORGN] Onset: 08-01-2022 Episodic Unclassified (1 source) LOW BACK PAIN, UNSPECIFIED; Translations: [LOW BACK PAIN, UNSPECIFIED] Onset: 11-03-2022 Results Test Name Value Interpretation Reference Range Sebas Valentin 09-09-2022 CNPN Telephone (NIQ) CHRISTIAN NOYOLA ([id number]) 1950 F Date Time Provider Department 09/09/22 JORGE DESAI During your visit today, we recorded the following information about you: Tanya Parada Pss 09/09/2022 2:47 PM Signed Received spine injection report by fax. Scanned to patient's chart for provider review. Debbi Roman RN 09/09/2022 2:53 PM Signed Will forward for review. Scan on 09/08/2022 2:37 PM by External Provider: Spine Injection Allergies As of Date: 09/09/2022 (Not on File) Date Reviewed: 09/05/2022 Reviewed by: Nilsa Adair MA - Fully Assessed Reason for Visit: Received Outside Medical Records [[id number]] Prescriptions as of 09/09/2022 - MULTI-VITAMIN ORAL Take by mouth once daily. - VITAMINS B COMPLEX capsule Take 1 capsule by mouth once daily. - DAILY-SAÚL, WITH FOLIC ACID, 400 mcg Take 1 tablet by mouth once daily. - Cholecalciferol, Vitamin D3, 125 mcg (5,000 unit) cap Take 5,000 Units by mouth three times a week. - gabapentin (NEURONTIN) 300 mg capsule Take 1 capsule by mouth twice daily for 90 days. Problem List As Of Date: 09/09/2022 (None) Encounter Status:Closed by DEBBI ROMAN on 09/09/22 [facility] CNOVon 09-05-2022 CNOV Office Visit (NSFRVW ) CHRISTIAN NOYOLA ([id number]) 1950 F Date Time Provider Department 09/05/22 1:00 PM JORGE DESAI NSFRVW During your visit today, we recorded the following information about you: Temperature Pulse Respiration Blood pressure 97.6 degrees 67/minute 20/minute 183/87 Weight Height 88.9 kg 1.626 m Jorge Desai MD 09/05/2022 2:15 PM Signed SPINE SURGERY NEW PATIENT This is an in-person visit. PCP: No primary care provider on file. REFERRING PROVIDER: previous back surgeon SUBJECTIVE HISTORY OF PRESENT ILLNESS: Christian Noyola is a 72 year old female presenting with daughter. Complains of L buttock and left anterior thigh pain and in L3 distribution equal low back pain. Symptom has been gradually progressing over the last several months. pain occurs upon walking and lasting for a few minutes only. This happens about once per day, every day. She denies pain below the knee. She denies pain on her R side. She denies leg weakness and numbness. She is interested in gabapentin and physical therapy; surgery only if pain still persists. CHIEF COMPLAINT: L buttock pain PRECIPITATING EVENT: None DURATION OF SYMPTOMS: Greater Than 6 Months, Summer 2021 PAIN EVALUATION 08/29/2022 1051 Pain Location: Buttocks-Left Description: Shooting Duration Amount of Time: 5 Duration Units: Minutes Frequency: Intermittent Intervention/Comfort measure: Exercise;Positioning Pain Radiation: L buttock Aggravating Factors: Walking, upon standing up Alleviating Factors: Exercising/activity, positioning. medication Pain Ratio: Pain in the back and leg(s) is equal DERMATOMAL DISTRIBUTION: Left: L3 AMBULATORY STATUS: with occasional pain ANTIPLATELET OR ANTICOAGULATION STATUS: No PREVIOUS CONSERVATIVE TREATMENTS: Ibuprofen. Injection for inflammation (on Aug 02); pain mostly relieved for 2 weeks PREVIOUS SPINAL SURGERY: SURGERY #1: December 2002 - L4/5 - discectomy SURGERY #2: Apr 2011 - L2/3 - discectomy There is no problem list on file for this patient. No past medical history on file. No past surgical history on file. No family history on file. Social History Tobacco Use Smoking status: Former Types: Cigarettes Quit date: 08/22/1979 Years since quittin.0 ALLERGIES Not on File MEDICATIONS: MULTI-VITAMIN ORAL Take by mouth once daily. VITAMINS B COMPLEX capsule Take 1 capsule by mouth once daily. DAILY-SAÚL, WITH FOLIC ACID, 400 mcg Take 1 tablet by mouth once daily. Cholecalciferol, Vitamin D3, 125 mcg (5,000 unit) cap Take 5,000 Units by mouth three times a week. gabapentin (NEURONTIN) 300 mg capsule Take 1 capsule by mouth twice daily for 90 days. REVIEW OF SYSTEMS: PAIN ASSESSMENT: See HPI. GENERAL: Denies fever, chills malaise and weight loss. HEENT: No recent change in vision or hearing. CARDIOVASCULAR: Denies chest pain, history of A-fib, valvular disease, or pacemaker/ICD. RESPIRATORY: Denies SOB, sputum production, and hemoptysis. GI: Denies GI ulcers, inflammatory disease, or liver disease. : Denies change in frequency or urgency, kidney disease, and burning with urination. MUSCULOSKELETAL: Negative for joint pain or swelling, back pain or muscle pain. SKIN: Denies rash or itching. PSYCHOLOGICAL: Denies uncontrolled depression or anxiety. NEURO: Denies CVA, seizures, headaches. ENDOCRINE: Denies diabetes, thyroid disease. HEMATOLOGY/LYMPHOLOGY : Denies cancer, bleeding or clotting disorders, anemia,and DVT's. ALLERGIC/IMMUNOLOGICA L: Denies risks for infection, or recent MRSA infections. Patient Entered Questionnaires Spine Questions 08/29/2022 Pain Location: Lower back Pain Duration: 6 months - 1 year Pain over last 6 months: At least half the days in the past 6 months Symptoms from neck/cervical spine: No Employment Status: Retired Involved in law suit/legal claim: No PROMIS Score Percentiles Physical Health 08/29/2022 Physical Function Percentile 31 Sleep Percentile 54 Fatigue Percentile 79 Pain Interference Percentile 27* PROMIS SOCIAL ROLE SCORE 08/29/2022 Social Role Satisfaction Percentile 12 PROMIS Global Health Scale 08/29/2022 Mental Health Percentile 96 Percentiles provide an indication of how the patient's score ranks in relation to the general population. Higher percentile rankings indicate better function/quality of life. 50th percentile is the average of the general population and indicates half of respondents had a worse score. Depression Screening: PHQ-9 08/29/2022 Score 0 PHQ-9 Self-harm Question 08/29/2022 Thoughts that you would be better off , or of hurting yourself in some way 0 PHQ-9 Self-Harm (Item 9) response options: 0 Not at all 1 Several days 2 More than half the days 3 Nearly every day PHQ-9 Levels: 0-4 No to mild depression 5-9 Mild depression 10-14 Moderat (more content not included)... Normal [facility] MG MAMM SCREEN 3D STEFAN CADon 07-27-2022 MG MAMM SCREEN 3D STEFAN CAD Patient: CHRISTIAN NOYOLA Exam Date: 07/27/2022 : 1950 Gender:F Ordering : DR JORDAN CASTILLO D.O. Admission #: [id number] Family : Order #: [id number] CLICK HERE TO VIEW EXAM RADIOLOGY REPORT PROCEDURE: MAMMOGRAM SCREENING 3D BILATERAL CAD COMPARISON: MG MAMM SCREEN 3D STEFAN CAD, 07/26/2021. MG MAMM SCREEN STEFAN W CAD, 07/23/2020. INDICATIONS: Screening mammography Calculator Name NCI Breast Cancer Risk Assessment Tool 5 Year Breast Cancer Risk 3.70% Lifetime Breast Cancer Risk 9.40% Personal Breast Cancer No Personal Ovarian Cancer No Treatments None Family Cancers Father with anal cancer at age 79; Mother with breast cancer at age 47. LOCATION: [facility] BREAST COMPOSITION: Heterogeneously dense,which may obscure small masses. FINDINGS: DIAGNOSTIC CATEGORY 2--BENIGN FINDING. NO CHANGE FROM COMPARISON. Scattered benign-appearing nodules are present. Scattered benign-appearing calcifications are present. Scattered benign-appearing lymph nodes are present. RIGHT BREAST: No significant suspicious finding. LEFT BREAST: No significant suspicious finding. RECOMMENDATIONS: ROUTINE MAMMOGRAM AND CLINICAL EVALUATION IN 12 MONTHS. PLEASE NOTE: A NORMAL MAMMOGRAM DOES NOT EXCLUDE THE POSSIBILITY OF BREAST CANCER. A CLINICALLY SUSPICIOUS PALPABLE LUMP SHOULD BE BIOPSIED. Dictated by: Emily Snow MD on 07/27/2022 at 13:36 Approved by: Emily Snow MD on 07/27/2022 at 13:38 Normal [facility] MRI LSPINE WO CONon 06-03-20 22 MRI LSPINE WO CON EXAMINATION: MRI LSPINE WO CON HISTORY: Degeneration of lumbar intervertebral disc ; chronic lumbar pain with new onset bilateral leg pain COMPARISON: MRI lumbar spine 10/27/2015 TECHNIQUE: A variety of imaging planes and parameters were utilized for visualization of suspected pathology. FINDINGS: For the purposes of numbering, sagittal T2 image # 8 extends from the T10 vertebral body superiorly to the S3 level inferiorly. PARASPINAL AREA: Normal with no visible mass. BONES: 4 mm anterior listhesis of L4 on 5. No fracture or bone lesion. Sclerotic degenerative endplate changes L2-L3. CORD/CAUDA EQUINA: Normal caliber, contour, and signal intensity. DISC LEVELS: 12-L1: No significant disc/facet abnormality, spinal stenosis, or foraminal stenosis. L1-L2: Moderate marked central canal and right foramen narrowing. Moderate left foramen narrowing moderate diffuse disc bulging with moderate disc height reduction. Mild degenerative facet arthropathy with prominent ligamentum flavum thickening bilaterally. L2-L3: Mild central canal narrowing. Marked right, moderate left foramen narrowing. Mild diffuse disc bulging with marked disc height reduction. Marked right, moderate left facet hypertrophy and ligament of flavum thickening. L3-L4: Marked central canal narrowing. Marked foramen narrowing, right greater than left. Moderate diffuse disc bulging with marked disc height reduction. Marked degenerative facet arthropathy and ligamentum flavum thickening bilaterally. L4-L5: Mild central canal narrowing. Marked left, mild right foramen narrowing. Grade 1 anterior listhesis of L4 on 5, 4 mm. Marked disc space narrowing with prominent posterior pseudodisc bulging. Marked left, mild-moderate right degenerative facet arthropathy. L5-S1: Mild central canal narrowing with marked bilateral foramen narrowing. Moderate diffuse disc bulging with moderate disc height reduction. Marked degenerative facet arthropathy bilaterally. IMPRESSION: 1. Multilevel marked central canal and foramen narrowing secondary to degenerative disc disease and degenerative facet arthropathy. Findings have slightly progressed compared to the 2016 study. Electronically authenticated by: BONNY SHORE Date: 2022-06-03 11:34 Normal [facility] CBC Without Differentialon 0 10-10-2020 Erythrocyte distribution width (RBC) [Ratio] 12.9 % Normal 11.9-15.3 [facility] Comment on above: Performed By: #### C BCNOOUTREACH, OUTREACH LIPID, OUTREACH CMP #### [address] Hematocrit (Bld) [Volume fraction] 42.4 % Normal 34.0-46.4 [facility] Comment on above: Performed By: #### C BCNOOUTREACH, OUTREACH LIPID, OUTREACH CMP #### [address] Hemoglobin (Bld) [Mass/Vol] 14.9 g/dL Normal 11.8-15.4 [facility] Comment on above: Performed By: #### C BCNOOUTREACH, OUTREACH LIPID, OUTREACH CMP #### [address] MCH (RBC) [Entitic mass] 31.9 pg Normal 24.7-34.3 [facility] Comment on above: Performed By: #### C BCNOOUTREACH, OUTREACH LIPID, OUTREACH CMP #### [address] MCV (RBC) [Entitic vol] 90.9 fL Normal 80-100 [facility] Comment on above: Performed By: #### C BCNOOUTREACH, OUTREACH LIPID, OUTREACH CMP #### [address] Mean Corpuscular HGB Conc 35.1 g/dL High 32.0-35.0 [facility] Comment on above: Performed By: #### C BCNOOUTREACH, OUTREACH LIPID, OUTREACH CMP #### [address] Platelet mean volume (Bld) [Entitic vol] 8.4 fL Normal 6.3-10.7 [facility] Comment on above: Result Comment: PERF ORMED BY: [place] [address] PATHOLOGIST MONEY ROOM TELLER RANDY STEEL M.D. Performed By: #### C BCNOOUTREACH, OUTREACH LIPID, OUTREACH CMP #### [address] Platelets (Bld) [#/Vol] 175 10*3/uL Normal 150-450 [facility] Comment on above: Performed By: #### C BCNOOUTREACH, OUTREACH LIPID, OUTREACH CMP #### [place] [id number] [place] RBC (Bld) [#/Vol] 4.66 10*6/uL Normal 3.60-5.00 [facility] Comment on above: Performed By: #### C BCNOOUTREACH, OUTREACH LIPID, OUTREACH CMP #### [facility] [address] WBC (Bld) [#/Vol] 5.2 10*3/uL Normal 3.8-11.6 [facility] Comment on above: Performed By: #### C BCNOOUTREACH, OUTREACH LIPID, OUTREACH CMP #### [facility] [address] [place] [address] CMP Outreachon 10-10-2020 Albumin [Mass/Vol] 4.0 g/dL Normal 3.2-5.5 [facility] Comment on above: Performed By: #### C BCNOOUTREACH, OUTREACH LIPID, OUTREACH CMP #### [facility] [address] [place] [address] ALP [Catalytic activity/Vol] 86 U/L Normal 32-92 [facility] Comment on above: Performed By: #### C BCNOOUTREACH, OUTREACH LIPID, OUTREACH CMP #### [facility] [address] [place] [address] ALT [Catalytic activity/Vol] 38 U/L Normal 10-60 [facility] Comment on above: Performed By: #### C BCNOOUTREACH, OUTREACH LIPID, OUTREACH CMP #### [facility] [address] [place] [address] AST [Catalytic activity/Vol] 31 U/L Normal 10-42 [facility] Comment on above: Performed By: #### C BCNOOUTREACH, OUTREACH LIPID, OUTREACH CMP #### [facility] [address] [place] [address] [place] Bilirubin [Mass/Vol] 0.6 mg/dL Normal 0.3-1.2 [facility] Comment on above: Performed By: #### C BCNOOUTREACH, OUTREACH LIPID, OUTREACH CMP #### [facility] [address] [place], [place] [id number] [place] Calcium [Mass/Vol] 9.6 mg/dL Normal 8.2-10.2 [facility] Comment on above: Performed By: #### C BCNOOUTREACH, OUTREACH LIPID, OUTREACH CMP #### [facility] [address] [id number] [place] Chloride [Moles/Vol] 105 mmol/L Normal 95-114 [facility] Comment on above: Performed By: #### C BCNOOUTREACH, OUTREACH LIPID, OUTREACH CMP #### [facility] [address] [place] [address] [place] CO2 [Moles/Vol] 26.3 mmol/L Normal 22.0-30.0 [facility] Comment on above: Performed By: #### C BCNOOUTREACH, OUTREACH LIPID, OUTREACH CMP #### [facility] [address] [place] [address] [place] Creatinine [Mass/Vol] 1.03 mg/dL Normal 0.44-1.03 [facility] Comment on above: Performed By: #### C BCNOOUTREACH, OUTREACH LIPID, OUTREACH CMP #### [facility] [address] [place] [address] Estimated GFR ( Sharmaine > 60 [facility] Comment on above: Result Comment: GFR estimated reference range: According to KDOQI guidelines, <60 ml/min/1.73m2 is sufficient to diagnose a patient with chronic kidney disease. Performed By: #### C BCNOOUTREACH, OUTREACH LIPID, OUTREACH CMP #### [facility] [address] [place] [address] [place] Estimated GFR (Non- Am 53 [facility] Comment on above: Performed By: #### C BCNOOUTREACH, OUTREACH LIPID, OUTREACH CMP #### [facility] [address] [id number] [place] Glucose [Mass/Vol] 94 mg/dL Normal 70-100 [facility] Comment on above: Result Comment: [place] Glucose Reference Range is dependent on time and content of last meal. Glucose of more than 200 mg/dL in a nonstressed, ambulatory subject supports the diagnosis of Diabetes Mellitus. ADA recommended reference range Performed By: #### C BCNOOUTREACH, OUTREACH LIPID, OUTREACH CMP #### [facility] [address] Potassium [Moles/Vol] 4.4 mmol/L Normal 3.5-5.1 [facility] Comment on above: Performed By: #### C BCNOOUTREACH, OUTREACH LIPID, OUTREACH CMP #### [facility] [address] [place] [address] [place] Protein [Mass/Vol] 7.0 g/dL Normal 6.1-7.9 [facility] Comment on above: Performed By: #### C BCNOOUTREACH, OUTREACH LIPID, OUTREACH CMP #### [facility] [address] Sodium [Moles/Vol] 141 mmol/L Normal 136-146 [facility] Comment on above: Performed By: #### C BCNOOUTREACH, OUTREACH LIPID, OUTREACH CMP #### [facility] [address] Urea nitrogen [Mass/Vol] 12 mg/dL Normal 9-23 [facility] Comment on above: Performed By: #### C BCNOOUTREACH, OUTREACH LIPID, OUTREACH CMP #### [facility] [address] [place] [address] Lipid Profile [facility] Cholesterol [Mass/Vol] 336 mg/dL High 140-200 [facility] Comment on above: Result Comment: Chol less than 200 mg/dl low risk Chol 201-239 mg/dl borderline risk Chol 240 mg/dl and greater high risk Performed By: #### C BCNOOUTREACH, OUTREACH LIPID, OUTREACH CMP #### [facility] [address] [place] [address] [place] Cholesterol in HDL [Mass/Vol] 48 mg/dL Normal 35-85 [facility] Comment on above: Result Comment: HDL CHOL ATP-III CLASSIFICATION Cardiovascular Risk HDL > or equal to 60 mg/dL LOW HDL < 40 mg/dL HIGH Performed By: #### C BCNOOUTREACH, OUTREACH LIPID, OUTREACH CMP #### [facility] [address] Cholesterol.total/Ch olesterol in HDL [Mass ratio] 7.0 {ratio} Normal <5.0 [facility] Comment on above: Result Comment: PERF ORMED BY: [place] [address] PATHOLOGIST [employer] RO[employer] TELLER RANDY STEEL M.D. Performed By: #### C BCNOOUTREACH, OUTREACH LIPID, OUTREACH CMP #### [facility] [address] [place] [address] LDL Cholesterol,Calculat ed 250 mg/dL High 0-100 [facility] Comment on above: Result Comment: LDL ATP III CLASSIFICATION LDL less than 100 mg/dL Optimal LDL 100-129 mg/dL Near or above optimal LDL 130-159 mg/dL Borderline high LDL 160-189 mg/dL High LDL greater than 189 mg/dL Very high Performed By: #### C BCNOOUTREACH, OUTREACH LIPID, OUTREACH CMP #### [facility] [address] [place] [address] Triglyceride w/Reflex 192 mg/dL High 35-149 [facility] Comment on above: Result Comment: TRIG ATP III CLASSIFICATION TRIG less than 150 mg/dL Normal TRIG 150-199 mg/dL Borderline high TRIG 200-500 mg/dL High TRIG greater than 500 mg/dL Very high Standard traceable to the Center for Disease Conrtrol and Prevention (CDC) test method. Performed By: #### C BCNOOUTREACH, OUTREACH LIPID, OUTREACH CMP #### [facility] [address] [place] [address] VLDL CHOLESTEROL 38 mg/dL Normal [facility] Comment on above: Performed By: #### C BCNOOUTREACH, OUTREACH LIPID, OUTREACH CMP #### [facility] [address] [place] [address] Vital Signs Date Time Vital Sign Value Performing Clinician Facility 05-11-2023 11:00-0400 Body height 165.1 cm Jordan Castillo [facility] 05-11-2023 11:00-0400 Body mass index (BMI) [Ratio] 32.41 kg/m2 Jordan Castillo Other [facility] 05-11-2023 11:00-0400 Body weight 88.36 kg Jordan Ball Other [facility] 05-11-2023 11:00-0400 Diastolic blood pressure 80 mm[Hg] Jordan Ball Other [facility] 05-11-2023 11:00-0400 Respiratory rate 12 /min Jordan Ball Other [facility] 05-11-2023 11:00-0400 Systolic blood pressure 118 mm[Hg] Jordan Ball Other [facility] 02-16-2023 13:53-0400 Body height 165.1 cm Jordan Ball Other [facility] 02-16-2023 13:53-0400 Diastolic blood pressure 72 mm[Hg] Jordan Ball Other [facility] 02-16-2023 13:53-0400 Systolic blood pressure 152 mm[Hg] Jordan Ball Other [facility] 09-05-2022 12:34-0500 Body height 162.6 cm Jorge Desai MD Work Phone: [facility] 09-05-2022 12:34-0500 Body temperature 97.59 [degF] Jorge Desai MD Work Phone: [facility] 09-05-2022 12:34-0500 Body weight 88.91 kg Jorge Desai MD Work Phone: [facility] 09-05-2022 12:34-0500 Diastolic blood pressure 87 mm[Hg] Jorge Desai MD Work Phone: [facility] 09-05-2022 12:34-0500 Heart rate 67 /min Jorge Desai MD Work Phone: [facility] 09-05-2022 12:34-0500 Respiratory rate 20 /min Jorge Desai MD Work Phone: [facility] 09-05-2022 12:34-0500 SaO2% (BldA) [Mass fraction] 98 % Jorge Desai MD Work Phone: [facility] 09-05-2022 12:34-0500 Systolic blood pressure 183 mm[Hg] Jogre Desai MD Work Phone: [facility] Encounters Encounter Date Encounter Type Care Provider Facility Start: 06-21-2023 End: 06-21-2023 ambulatory Jordan Castillo Other [facility] Start: 06-21-2023 Telephone encounter Jordan Castillo [facility] Start: 06-19-2023 End: 06-19-2023 ambulatory Jordan Jonathan Other [facility] Start: 06-19-2023 Office outpatient vi sit 15 minutes Jordan Ball [facility] Start: 05-18-2023 End: 05-18-2023 ambulatory Jordan Jonathan Other [facility] Start: 05-18-2023 Telephone encounter Jordan aCstillo [facility] Start: 05-11-2023 End: 05-11-2023 ambulatory Jordan Ball Other [facility] Start: 05-11-2023 Office outpatient vi sit 25 minutes Jordan Ball [facility] Start: 03-21-2023 End: 03-21-2023 ambulatory Jordan Ball Other [facility] Start: 03-21-2023 Telephone encounter Jordan Jonathan [facility] Start: 02-19-2023 End: 02-19-2023 ambulatory Jordan Ball Other [facility] Start: 02-19-2023 Telephone encounter Jordan COSTELLO [facility] Start: 02-16-2023 End: 02-16-2023 ambulatory Jordan Castillo Other [facility] Start: 02-16-2023 Telephone encounter Jordan COSTELLO [facility] Start: 02-10-2023 End: 02-10-2023 ambulatory Jordan Castillo Other [facility] Start: 02-10-2023 Telephone encounter Jordan COSTELLO [facility] Start: 02-09-2023 End: 02-09-2023 ambulatory Jordan Castillo Other [facility] Start: 02-09-2023 Telephone encounter Jordan COSTELLO [facility] Start: 02-06-2023 End: 02-07-2023 ambulatory Jessica Mi MD Facility:[facility] Start: 12-06-2022 End: 12-07-2022 ambulatory NARENDRANATH LAKSHMIPATHY . Facility:[facility] Start: 11-15-2022 End: 11-15-2022 ambulatory NARENDRANATH LAKSHMIPATHY . Facility:[facility] Start: 11-03-2022 End: 11-04-2022 ambulatory NARENDRANATH LAKSHMIPATHY . Facility:[facility] Start: 10-18-2022 End: 10-18-2022 ambulatory NARENDRANATH LAKSHMIPATHY . Facility:[facility] Start: 10-06-2022 End: 10-07-2022 ambulatory NARENDRANATH LAKSHMIPATHY . Facility:[facility] Start: 09-09-2022 End: 10-12-2022 ambulatory NEHA GREWAL . Facility:[facility] Start: 09-09-2022 Telephone encounter Jorge santana MD Work Phone: Neurology Comment on above: Received Outside Med ical Records Start: 09-08-2022 End: 09-09-2022 ambulatory NEHA GREWAL . Facility:[facility] Start: 09-05-2022 End: 09-05-2022 ambulatory JORGE DESAI Facility:[facility] Start: 09-05-2022 End: 09-05-2022 Patient encounter procedure Jorge Desai MD Work Phone: Neurosurgery Comment on above: Degenerative scolios is (Primary Dx) Start: 08-02-2022 End: 08-02-[address] ZACARIAS SAMUEL . Facility:[facility] Start: 07-27-2022 End: 07-28-[address] JORDAN CASTILLO Facility:[facility] Start: 07-19-2022 End: 07-20-[address] ZACARIAS SAMUEL . Facility:[facility] Start: 06-03-2022 End: 06-04-[address] JORDAN CASTILLO Facility: Plan of Treatment Date Care Activity Detail Author Start: 07-10-2022 ADVANCE DIRECTIVE DISCUSSION ADVANCE DIRECTIVE DISCUSSION [facility] Start: 07-10-2022 DEPRESSION ASSESSMENT DEPRESSION ASS ESSMENT [facility] Start: 2015 BONE DENSITY BONE DENSITY [facility] Start: 2015 PNEUMOCOCCAL: 65+ (1 - PCV) PNEUMOCOCCAL: 65+ (1 - PCV) [facility] Start: 2000 SHINGRIX VACCINE (1 of 2) SHINGRIX V ACCINE (1 of 2) [facility] Start: 1995 COLOGUARD (FIT-DNA) COLOGUARD (FIT-D NA) [facility] Start: 1995 Colonoscopy COLONOSCOPY [facility] Start: 1995 COLORECTAL CANCER SCREENING COLORECTAL CANCER SCREENING [facility] Start: [address] COLONOGRAPHY [facility] Start: 1995 DIABETES SCREEN DIABETES SCREEN [facility] Start: 1995 FECAL OCCULT BLOOD FECAL OCCULT BLOO D [facility] Start: 1995 LIPID SCREEN LIPID SCREEN [facility] Start: 1995 SIGMOIDOSCOPY SIGMOIDOSCOPY [facility] Start: 1990 Mammography MAMMOGRAM [facility] Start: 1969 Urine microalbumin profile DTAP,TDAP ,TD (1 - Tdap) [facility] Start: 1968 HEPATITIS C SCREENING HEPATITIS C SC REENING [facility] Immunizations Immunization Date Immunization Notes Care Provider Fa cility 11-04-2022 COVID-19 Pfizer (bivalent) Jordan Castillo Other [facility] 04-25-2022 influenza, high dose seasonal, preservative-free Jordan Castillo Other [facility] 04-25-2022 COVID-19 Pfizer (bivalent) Jordan Castillo Other [facility] 02-15-2022 COVID-19 Pfizer Jordan Jet davida Other [facility] 08-13-2020 COVID-19 Vaccine Pfi zer - Documentation Purposes Only Jordan Castillo Other [facility] 03-03-2020 influenza virus vaccine, split virus (incl. purified surface antigen) Jordan Castillo Other [facility] 04-16-2018 influenza virus vaccine, split virus (incl. purified surface antigen) Jordan Castillo Other [facility] 06-22-2015 pneumococcal conjuga te vaccine, 13 valent Jordan Castillo Other [facility] 04-10-2015 pneumococcal polysaccharide vaccine, 23 valent Jordan Castillo Other [facility] 04-15-2014 tetanus and diphther ia toxoids, adsorbed, preservative free, for adult use (5 Lf of tetanus toxoid and 2 Lf of diphtheria toxoid) Jordan Castillo Other [facility] Other 10-11-2013 pneumococcal polysaccharide vaccine, 23 valent Jordan Castillo Other [facility] Other Payers Date Payer Category Payer Medicare [id number] 2015 Unknown [id number] 1959 Medicare [id number] 1959 Unknown [id number] 1950 Unknown [id number] 2.16.84 [id number] 1950 Unknown [id number] 2.16.84 [id number] 1950 Unknown [id number] 2.16.84 [id number] 1950 Unknown [id number] 2.16.84 [id number] 1950 Unknown [id number] 2.16.84 [id number] 1950 Unknown [id number] 2.16.84 [id number] 1950 Unknown [id number] 2.16.84 [id number] 1950 Unknown [id number] 2.16.84 [id number] 1950 Unknown [id number] 2.16.84 [id number] 1950 Unknown [id number] 2.16.84 [id number] 1950 Unknown [id number] 2.16.84 [id number] 1950 Unknown [id number] 2.16. [id number] Social History Date Type Detail Facility Start: 09-05-2022 Tobacco smoking status NHIS Ex-smoker [facility] End: 08-22-1979 History of tobacco use Current smoker [facility] End: 08-22-1979 History of tobacco use Cigarette Smoker [facility] Start: 1950 Sex Assigned At Female [facility] Sex Assigned At Sex Assigned At Bir [facility] Clinical Notes 07-19-2022 to 06-19-2023 Note Date & Type Note Facility 06-19-2023 Evaluation note Encounter Date Diagnosis Assessment Notes Jun, Adverse effect of angiotensin 2 receptor antagonist, initial encounter (ICD-10 - T46.5X5A) Stop ARB immediately Go to ER for difficult swallowing or breathing Benadryl and Claritin taken as instructed. Jun, Oropharyngeal dysphagia (ICD-10 - R13.12) Monitor symptoms closely and go to ER for swelling, SOB or increased difficulty swallowing. Jun, Primary hypertension (ICD-10 - I10) This patient is instructed to consume a healthy, low-fat, low-salt diet. They are also encouraged to continue exercise to achieve/mainta in a normal BMI. Stop ARB and increase Amlodipine to 5mg bid [facility] Other 11-09-2023 Evaluation note* Encounter Date Diagnosis Assessment Notes Treatment Notes Treatment Clinical Notes May, Primary hypertension (ICD-10 - I10) [facility] 11-02-2023 Evaluation note* Encounter Date Diagnosis Assessment Notes Treatment Notes Treatment Clinical Notes May, Primary hypertension (ICD-10 - I10) This patient is instructed to consume a healthy, low-fat, low-salt diet. They are also encouraged to continue exercise to achieve/maintain a normal BMI. Patient is instructed on home BP measurements: - rest for 5 minutes w/o talking- positioned w/ feet on floor and arm supported- average best 2/3 readings w/ goal < 135/85 _update office in couple weeks May, Hypertensive retinopathy of both eyes (ICD-10 - H35.033) Improve control of BP Improve cholesterol to help w/ primary prevention of ASCVD Healthy, low fat/salt diet and exercise May, Hyperlipidemia type II (ICD-10 - E78.01) Instructed on diet and exercise with initiation of statin therapy.Discussed the beneficial effects of lowering cholesterol in reducing the risk for cerebrovascular and cardiovascular disease. LDL > 190 w/ hypertensive retinopathy. Recommend initiating statin for cholesterol lowering properties and anti-inflammatory benefits May, Pain in right leg (ICD-10 - M79.604) Normal neuromuscular function Normal pulses w/ DP, PT Negative Astrid's sign Reassure for now, reviewed s/s DVT, claudication, sciatica May, Pain in left leg (ICD-10 - M79.605) Normal neuromuscular function Normal pulses w/ DP, PT Negative Astrid's sign Reassure for now, reviewed s/s DVT, claudication, sciatica May, Lumbar spondylosis (ICD-10 - M47.816) May, Drug-induced constipation (ICD-10 - K59.03) Increase fluids to 48-64oz daily Increase fiber and continue Metamucil. Diet increased w/ prunes and applesauce. Stool softener and Miralax optional [facility] 09-12-2023 Evaluation note* Encounter Date Diagnosis Assessment Notes Treatment Notes Treatment Clinical Notes Mar, Primary hypertension (ICD-10 - I10) [facility] 08-13-2023 Evaluation note* Encounter Date Diagnosis Assessment Notes Treatment Notes Treatment Clinical Notes Feb, Primary hypertension (ICD-10 - I10) [facility] 08-03-2023 Evaluation note* Encounter Date Diagnosis Assessment Notes Treatment Notes Treatment Clinical Notes Feb, Primary hypertension (ICD-10 - I10) [facility] 05-30-2023 NoteCONSULTATION CONSULTATION DATE: 12/06/2022 TO: Jordan Castillo D.O. CHIEF COMPLAINT: Includes bilateral lower back pain, sill worse on the left than the right side, but she has new onset right lower back symptoms. HISTORY: She reports overall her pain is 5-7/10 pain, sharp in character, increased with activities such as standing, walking and performing transitioning maneuvers. She feels most comfortable in the semi-recumbent position. Denies any change in bowel and bladder habits or new sensorimotor changes in the lower extremities. EXAM: Notable for patient having pain with lumbar facet loading maneuvers occurring bilaterally, again more severe on the left than the right side, at L4- 5 and L5-S1 with associated myofascial spasm at the level of the paravertebral muscles. IMPRESSION: Our impression is patient with chronic pain secondary to lumbosacral spondylosis and facet joint loading pain clinically. She has new onset right sided facet loading pain clinically. She reports that she noticed this almost immediately after her diagnostic left sided L4-5, L5-S1 facet joint injection. She reports the left side was improved by at least 80% following the immediate post procedural period; however, she reported unmasking or noticing the right side hurting her a lot more. And, on examination, she did have significant symptoms on the right side involving L4-5 and L5-S1. RECOMMENDATIONS: At this point, I recommended proceeding with a bilateral diagnostic procedure. I have informed the patient that if indeed the right side does improve and we are contemplating an ablation of the right sided L4, L5 and S1 facet joint denervation, we may have to repeat the right sided diagnostic procedure in the future. In the interim, we will increase the gabapentin 300 mg pills, one in the morning and two at bedtime. I have asked her to continue with the baclofen 10 mg pills, two at bedtime as well. As part of providing excellent, safe, comprehensive care, the following was completed at our patient's visit: 1. A medication reconciliation and review to ensure accurate knowledge of current/active medications, including asking our patients to inform us about any adqz-pwe-wumktga medications or herbal remedies/nutritional supplements/alternative remedies. 2. A review to specifically ensure our patients have had annual screening for: elevated body mass index (BMI, see intake chart for exact total), tobacco use, screening for depression, and screening for unhealthy alcohol use. When screening is concerning, patients are provided with education and the specific recommendation to discuss the concerning health issue and treatment options with their primary care provider.[id number] Note CONSULTATION CONSULTATION DATE: 11/03/2022 TO: Jordan Castillo D.O. HISTORY: Patient returns today complaining of 5-7/10 in the left lower back area, sharp in character, increased with activities such as standing, walking and performing transitioning maneuvers. She feels most comfortable in the semi- recumbent position. She denies any change in bowel and bladder habits or new sensorimotor changes in the lower extremities. EXAM: Notable for patient having no clinical radiculopathy or myelopathy involving the lower extremities. Patient had severe pain with lumbar facet joint loading maneuvers on the left side at L4-5, L5-S1 and associated myofascial spasm of the lumbar paravertebral muscles. IMPRESSION: Patient appears to have residual pain in her left lower back pain, secondary to lumbosacral spondylosis, secondary to facet loading pain clinically at L4-5, L5-S1. She has undergone a successful lumbar epidural steroid injection, which she reports the pain was improved by at least 80%. This includes the pain in her left lower extremity and her examination is notable for the patient having normalizing of her neuromuscular examination in her lower extremities. RECOMMENDATIONS: I have asked her to maintain off of her Zonegran secondary to the fact that the patient had side effects. She restarted her gabapentin 300 mg b.i.d. and she reports it is helping her, and I have asked her to continue with the use of baclofen 10 mg at h.s., and to proceed with diagnostic left sided L4-5, L5-S1 facet joint injection under fluoroscopic guidance. 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 Her MARCELO on today's visit was 40. As part of providing excellent, safe, comprehensive care, the following was completed at our patient's visit: 1. A medication reconciliation and review to ensure accurate knowledge of current/active medications, including asking our patients to inform us about any xayw-xue-xeclgex medications or herbal remedies/nutritional supplements/alternative remedies. 2. A review to specifically ensure our patients have had annual screening for: elevated body mass index (BMI, see intake chart for exact total), tobacco use, screening for depression, and screening for unhealthy alcohol use. When screening is concerning, patients are provided with education and the specific recommendation to discuss the concerning health issue and treatment options with their primary care provider.[facility] [id number] Note CONSULTATION CONSULTATION DATE: 10/06/2022 TO: Jordan Castillo D.O. CHIEF COMPLAINT: Includes severe left lower back pain, leg pain. HISTORY: She rates the pain 5-7/10 pain, sharp in character, increased with activities such as standing, walking and performing transitioning maneuvers. She feels most comfortable in a semi-recumbent position. Denies any change in bowel and bladder habits or new sensorimotor changes in the lower extremities. EXAM: Her examination is notable for patient having hypoesthesia along the left L3 dermatome. Mild weakness to the left quadriceps. Depressed patellar reflex. Straight leg raise is negative on today's visit. She had nothing to suggest myelopathy on today's visit involving the lower extremities. She had nothing to suggest facet loading pain in the lumbar area on today's visit. She did have a fair amount of myofascial spasm involving the lumbar paravertebral muscles, and she did have generalized soreness with light palpation to the quadriceps, hamstrings and even the gastrocnemius muscle. IMPRESSION: Patient with chronic pain secondary to left L3 radiculopathy. She has L2 involvement and L4 involvement as well, truly from a sensory perspective, as she had most significant hypoesthesia along the left L3 dermatome, but she had a fair amount of hypoesthesia involving L2 and L4 as well. She had known multilevel spinal stenosis. At this point, her strength appears to be markedly improved with physical therapy. The patient also self reports that the pain and strength in her left lower extremity have improved compared to her pre-injection level. She reports the pain improvement to me by at least 50%. RECOMMENDATIONS: My recommendation is to repeat an L4-5 lumbar epidural steroid injection; however, we will advance a catheter to the L2 level and administer medication from L2 through L4 levels. I have asked her to continue with physical therapy. I have increased the baclofen 10 mg pills, half a pill b.i.d., 1-2 at h.s. and to maintain her current regimen of Neurontin 300 mg b.i. d.[id number] Miscellaneous Notes* Telephone Encounter - Debbi Roman RN - 09/09/2022 2:52 PM EST Will forward for review. Scan on 09/08/2022 2:37 PM by External Provider: Spine Injection * Telephone Encounter - Tanya Navarro - 09/09/2022 2:44 PM EST Received spine injection report by fax. Scanned to patient's chart for provider review. [facility] NoteCONSULTATION CONSULTATION DATE: 09/08/2022 HISTORY: This is a very pleasant, 72-year-old female who returns to the clinic, status post lumbar epidural steroid injection completed on 08/02/2022. The patient states she received 25% relief for 2-3 weeks. Patient was seen by Dr. Desai at the [facility]. The patient does have multilevel spinal stenosis in her lumbar spine, as well as degenerative scoliosis with rotation. This is located at L3-L4, causing L3 foraminal stenosis. The patient states her neurosurgeon was open to her trialing injections at our clinic. She was also recently started on gabapentin 300 mg b.i.d, which she started two days ago. She is also on baclofen 10 mg q.h.s. Occasionally, she will take an ibuprofen 400 mg in the morning, which does help. Activities that greatly aggravate her pain are twisting, standing, walking and sitting too long. She has radiating anterior left thigh pain that does not extend below the knees. Patient's REVIEW OF SYSTEMS / PAST MEDICAL HISTORY / ALLERGIES and IMAGES have been reviewed and noted on the chart. PHYSICAL EXAM: VITAL SIGNS: Blood pressure is 144/80. Heart rate is 79. She is 5'4 and weighs 89 kg. GENERAL IMPRESSION: Pleasant, appropriate, in no acute distress. FOCUSED EXAM - BACK: Range of motion is guarded in lateral rotation and flexion/extension. Paravertebral muscles are taut but non-spasmodic. Point tenderness along the faces of L3, L4, L5 bilaterally, right greater than left. Pain does not radiate below the knees. MUSCULOSKELETAL: Motor is intact, bilateral lower extremities, 4/5 bilaterally. Slight muscle weakness noted to left quadriceps and anterior tibialis. Patient walks unassisted with a stable gait. NEUROLOGICALLY: Patchy hypoesthesia noted along the L3, L4 distribution to the left, just to the level of the knee. +1 bilateral patellar and Achilles reflexes. DIAGNOSIS: Lumbar spinal canal stenosis, lumbar degenerative disc disease, lumbar radiculitis. PLAN: We will trial physical therapy 2-3 times a week for four weeks. Patient is in agreement to this. She will be brought back to the clinic in four weeks' time to re-evaluate following her physical therapy and the efficacy of her newly administered gabapentin. At that time, she will see the new provider and a new plan of care will be established at that time.[facility] 09-05-2022 NoteHNO ID: [id number] Author: Jorge Desai MD Service: ? Author Type: Physician Type: Progress Notes Filed: 09/05/2022 2:15 PM Note Text: SPINE SURGERY NEW PATIENT This is an in-person visit. PCP: No primary care provider on file. REFERRING PROVIDER: previous back surgeon SUBJECTIVE HISTORY OF PRESENT ILLNESS: Christian Noyola is a 72 year old female presenting with daughter. Complains of L buttock and left anterior thigh pain and in L3 distribution equal low back pain. Symptom has been gradually progressing over the last several months. pain occurs upon walking and lasting for a few minutes only. This happens about once per day, every day. She denies pain below the knee. She denies pain on her R side. She denies leg weakness and numbness. She is interested in gabapentin and physical therapy; surgery only if pain still persists. CHIEF COMPLAINT: L buttock pain PRECIPITATING EVENT: None DURATION OF SYMPTOMS: Greater Than 6 Months, Summer 2021 PAIN EVALUATION 08/29/2022 1051 Pain Location: Buttocks-Left Description: Shooting Duration Amount of Time: 5 Duration Units: Minutes Frequency: Intermittent Intervention/Comfort measure: Exercise;Positioning Pain Radiation: L buttock Aggravating Factors: Walking, upon standing up Alleviating Factors: Exercising/activity, positioning. medication Pain Ratio: Pain in the back and leg(s) is equal DERMATOMAL DISTRIBUTION: Left: L3 AMBULATORY STATUS: with occasional pain ANTIPLATELET OR ANTICOAGULATION STATUS: No PREVIOUS CONSERVATIVE TREATMENTS: Ibuprofen. Injection for inflammation (on Aug 02); pain mostly relieved for 2 weeks PREVIOUS SPINAL SURGERY: SURGERY #1: December 2002 - L4/5 - discectomy SURGERY #2: Apr 2011 - L2/3 - discectomy There is no problem list on file for this patient. No past medical history on file. No past surgical history on file. No family history on file. Social History Tobacco Use Smoking status: Former Types: Cigarettes Quit date: 08/22/1979 Years since quittin.0 ALLERGIES Not on File MEDICATIONS: MULTI-VITAMIN ORAL Take by mouth once daily. VITAMINS B COMPLEX capsule Take 1 capsule by mouth once daily. DAILY-SAÚL, WITH FOLIC ACID, 400 mcg Take 1 tablet by mouth once daily. Cholecalciferol, Vitamin D3, 125 mcg (5,000 unit) cap Take 5,000 Units by mouth three times a week. gabapentin (NEURONTIN) 300 mg capsule Take 1 capsule by mouth twice daily for 90 days. REVIEW OF SYSTEMS: PAIN ASSESSMENT: See HPI. GENERAL: Denies fever, chills malaise and weight loss. HEENT: No recent change in vision or hearing. CARDIOVASCULAR: Denies chest pain, history of A-fib, valvular disease, or pacemaker/ICD. RESPIRATORY: Denies SOB, sputum production, and hemoptysis. GI: Denies GI ulcers, inflammatory disease, or liver disease. : Denies change in frequency or urgency, kidney disease, and burning with urination. MUSCULOSKELETAL: Negative for joint pain or swelling, back pain or muscle pain. SKIN: Denies rash or itching. PSYCHOLOGICAL: Denies uncontrolled depression or anxiety. NEURO: Denies CVA, seizures, headaches. ENDOCRINE: Denies diabetes, thyroid disease. HEMATOLOGY/LYMPHOLOGY: Denies cancer, bleeding or clotting disorders, anemia,and DVT's. ALLERGIC/IMMUNOLOGICAL: Denies risks for infection, or recent MRSA infections. Patient Entered Questionnaires Spine Questions 08/29/2022 Pain Location: Lower back Pain Duration: 6 months - 1 year Pain over last 6 months: At least half the days in the past 6 months Symptoms from neck/cervical spine: No Employment Status: Retired Involved in law suit/legal claim: No PROMIS Score Percentiles Physical Health 08/29/2022 Physical Function Percentile 31 Sleep Percentile 54 Fatigue Percentile 79 Pain Interference Percentile 27* PROMIS SOCIAL ROLE SCORE 08/29/2022 Social Role Satisfaction Percentile 12 PROMIS Global Health Scale 08/29/2022 Mental Health Percentile 96 Percentiles provide an indication of how the patient's score ranks in relation to the general population. Higher percentile rankings indicate better function/quality of life. 50th percentile is the average of the general population and indicates half of respondents had a worse score. Depression Screening: PHQ-9 08/29/2022 Score 0 PHQ-9 Self-harm Question 08/29/2022 Thoughts that you would be better off , or of hurting yourself in some way 0 PHQ-9 Self-Harm (Item 9) response options: 0 Not at all 1 Several days 2 More than half the days 3 Nearly every day PHQ-9 Levels: 0-4 No to mild depression 5-9 Mild depression 10-14 Moderate depression 15-19 Moderately severe depression 20-27 Severe depression OBJECTIVE: PHYSICAL EXAM BP 183/87 (BP Site: Right Arm, BP Position: Sitting) Pulse 67 Temp 36.4 ?C (97.6 ?F) (Temporal) Resp 20 Ht 162.6 cm (5' 4 ) Wt 88.9 kg (196 lb) SpO2 98% BMI 33.64 kg/m? Oriented x3 (more content not included)...[id number] History of Present illness Narrative* Jorge Desai MD - 09/05/2022 12:57 PM EST Images from the original note were not included. SPINE SURGERY NEW PATIENT This is an in-person visit. PCP: No primary care provider on file. REFERRING PROVIDER: previous back surgeon SUBJECTIVE HISTORY OF PRESENT ILLNESS: Christian Noyola is a 72 year old female presenting with daughter. Complains of L buttock and left anterior thigh pain and in L3 distribution equal low back pain. Symptom has been gradually progressing over the last several months. pain occurs upon walking and lasting for a few minutes only. This happens about once per day, every day. She denies pain below the knee. She denies pain on her R side. She denies leg weakness and numbness. She is interested in gabapentin and physical therapy; surgery only if pain still persists. CHIEF COMPLAINT: L buttock pain PRECIPITATING EVENT: None DURATION OF SYMPTOMS: Greater Than 6 Months, Summer 2021 PAIN EVALUATION 08/29/2022 1051 Pain Location: Buttocks-Left Description: Shooting Duration Amount of Time: 5 Duration Units: Minutes Frequency: Intermittent Intervention/Comfort measure: Exercise;Positioning Pain Radiation: L buttock Aggravating Factors: Walking, upon standing up Alleviating Factors: Exercising/activity, positioning. medication Pain Ratio: Pain in the back and leg(s) is equal DERMATOMAL DISTRIBUTION: Left: L3 AMBULATORY STATUS: with occasional pain ANTIPLATELET OR ANTICOAGULATION STATUS: No PREVIOUS CONSERVATIVE TREATMENTS: Ibuprofen. Injection for inflammation (on Aug 02); pain mostly relieved for 2 weeks PREVIOUS SPINAL SURGERY: SURGERY #1: December 2002 - L4/5 - discectomy SURGERY #2: Apr 2011 - L2/3 - discectomy There is no problem list on file for this patient. No past medical history on file. No past surgical history on file. No family history on file. Social History Tobacco Use Smoking status: Former Types: Cigarettes Quit date: 08/22/1979 Years since quittin.0 ALLERGIES Not on File MEDICATIONS: MULTI-VITAMIN ORAL Take by mouth once daily. VITAMINS B COMPLEX capsule Take 1 capsule by mouth once daily. DAILY-SAÚL, WITH FOLIC ACID, 400 mcg Take 1 tablet by mouth once daily. Cholecalciferol, Vitamin D3, 125 mcg (5,000 unit) cap Take 5,000 Units by mouth three times a week. gabapentin (NEURONTIN) 300 mg capsule Take 1 capsule by mouth twice daily for 90 days. REVIEW OF SYSTEMS: PAIN ASSESSMENT: See HPI. GENERAL: Denies fever, chills malaise and weight loss. HEENT: No recent change in vision or hearing. CARDIOVASCULAR: Denies chest pain, history of A-fib, valvular disease, or pacemaker/ICD. RESPIRATORY: Denies SOB, sputum production, and hemoptysis. GI: Denies GI ulcers, inflammatory disease, or liver disease. : Denies change in frequency or urgency, kidney disease, and burning with urination. MUSCULOSKELETAL: Negative for joint pain or swelling, back pain or muscle pain. SKIN: Denies rash or itching. PSYCHOLOGICAL: Denies uncontrolled depression or anxiety. NEURO: Denies CVA, seizures, headaches. ENDOCRINE: Denies diabetes, thyroid disease. HEMATOLOGY/LYMPHOLOGY: Denies cancer, bleeding or clotting disorders, anemia,and DVT's. ALLERGIC/IMMUNOLOGICAL: Denies risks for infection, or recent MRSA infections. Patient Entered Questionnaires Spine Questions 08/29/2022 Pain Location: Lower back Pain Duration: 6 months - 1 year Pain over last 6 months: At least half the days in the past 6 months Symptoms from neck/cervical spine: No Employment Status: Retired Involved in law suit/legal claim: No PROMIS Score Percentiles Physical Health 08/29/2022 Physical Function Percentile 31 Sleep Percentile 54 Fatigue Percentile 79 Pain Interference Percentile 27* PROMIS SOCIAL ROLE SCORE 08/29/2022 Social Role Satisfaction Percentile 12 PROMIS Global Health Scale 08/29/2022 Mental Health Percentile 96 Percentiles provide an indication of how the patient's score ranks in relation to the general population. Higher percentile rankings indicate better function/quality of life. 50th percentile is the average of the general population and indicates half of respondents had a worse score. Depression Screening: PHQ-9 08/29/2022 Score 0 PHQ-9 Self-harm Question 08/29/2022 Thoughts that you would be better off , or of hurting yourself in some way 0 PHQ-9 Self-Harm (Item 9) response options: 0 Not at all 1 Several days 2 More than half the days 3 Nearly every day PHQ-9 Levels: 0-4 No to mild depression 5-9 Mild depression 10-14 Moderate depression 15-19 Moderately severe depression 20-27 Severe depression OBJECTIVE: PHYSICAL EXAM BP 183/87 (BP Site: Right Arm, BP Position: Sitting) Pulse 67 Temp 36.4 C (97.6 F) (Temporal) Resp 20 Ht 162.6 cm (5' 4 ) Wt 88.9 kg (196 lb) SpO2 98% BMI 33.64 kg/m Oriented x3 PERRL FS Motor: UE D 5/5, B 5/5, T 5/5, G 5/5, HI 5/5 LE HF 5/5, KE 5/5, DF 5/5, PF 5/5, EHL 5/5 Gait is normal Hip exam is normal NEURO TESTS: None DATA REVIEW MRI and XR lumbar spine shows multilevel stenosis and a degenerative scoliosis with likely rotationsubluxation at L3-4 causing left L3 foraminal stenosis and severe lateral recess stenosis ASSESSMENT/PLAN (M41.50) Degenerative scoliosis (primary encounter diagnosis) Patient symptoms likely related to rotation subluxation L3-4. She got good response to recent injection I do not have record of the level. I recommended patient continue conservative management at the moment. Surgery to be considered to likely entail L3-4 fusion could be from a lateral approach 1. Gabapentin ordered 2. Follow up: 2 months SIGNATURE: Jorge Desai MD PATIENT NAME: Christian Noyola DATE: September 05, 2022 TIME: 12:57 PM PAGER: IPreeti, attest that this document has been prepared under the direction and in the presence of Jorge Desai MD on September 05, 2022 at 1:23 PM. documented in this encounterA[facility]01-[facility] NoteCONSULTATION CONSULTATION DATE: 07/19/2022 HISTORY OF PRESENT ILLNESS: This is a very pleasant, 72-year-old female who was referred to us by Dr. Sreekanth Castillo. The patient has had chronic low back pain. The pain has been gradually increasing, and over the last six months, she is having difficulty in getting out of the bed, especially when she is laying on her side. She has difficulty in straightening her leg. Left side is greater than the right. The patient has a tingling, sharp sensation along her anterior aspect of her thigh, in the distribution of L3. Sitting for any length of time aggravates the pain as does standing, twisting. Turning in bed aggravates the patient's pain. Sleep disturbances are noted by the patient. The patient has attended physical therapy classes for three weeks without any help. The patient currently takes ibuprofen 400 mg b.i.d. The patient had a diskectomy in 2002 at the level of L4-L5 and in 2010 at the level of L2-L3. The patient uses Voltaren gel also. The patient's PAST MEDICAL HISTORY / SURGICAL HISTORY / REVIEW OF SYSTEMS are noted on the chart, along with the MEDICATION LIST / ALLERGIES and RADIOLOGICAL IMAGES, including the MRI which was reviewed with the patient. PHYSICAL EXAM: Upon physical examination, this is a pleasant, cooperative female, who does not appear to be in any acute distress. VITAL SIGNS: Elevated at 173/93, with a heart rate of 87. At a height of 5'4 , the patient weighs 194 pounds. HEAD: Atraumatic, normocephalic. NECK: Slight crepitus is noted. HEART: Negative orthopnea. LUNGS: Negative dyspnea. ABDOMEN: Protuberant, non-distended. BACK: Loss of lumbar lordosis is noted. Axial height diminution is noted. Extension, compression, direct palpation along the posterior elements aggravate and reproduce the patient's pain symptomatology concordant with facet arthropathy, lumbar spondylosis. EXTREMITIES: No pedal edema is noted. MUSCULOSKELETAL: Intact. Weak along the quads on the left hand side. NEUROLOGICALLY: Hypoesthesia is present at the level of L4 and L3. PSYCHIATRICALLY: Affect is appropriate. IMPRESSION: Current working diagnosis is lumbar disc displacement, lumbar spinal canal stenosis secondary to discogenic and facet hypertrophy and ligamentous hypertrophy. Lumbar radiculitis/radiculopathy L3 on the left hand side, most prominent. The patient has significant multiple level degenerative discs. PLAN: We will add baclofen 10 mg p.o. daily. We will proceed with a lumbar epidural steroid injection. The patient is hoping to go to [place] in a few weeks. We have also strongly recommended to the patient for a neurosurgical consult, given the multiple levels the patient has pathology. I believe the surgical consult will also help define for the patient progression components. In the interim, the patient will also continue with extension exercises. The patient understands and would like to proceed. CC: Jordan Castillo D.O.[facility] note* Diagnosis Degenerative scoliosis- Primary documented in this encounter [facility] noteNo InformationNortEncompass Health Rehabilitation [facility] [employer] Other History general Narrative - Reported* Type Description Date Medical History MS (multiple sclerosis) Medical History Gastroesophageal ref lux disease with esophagitis without hemorrhage Medical History Primary hypertension Medical History Valgus deformity, not elsewhere classified, right ankle Medical History Arthritis of right shoulder syed on Medical History Lumbar spondylosis Medical History Hyperlipidemia type II Surgical History back surgery x's 2 Hospitalization History SEE SURGICAL HX 7 [employer] Other Summary Purpose Family History No Family History Records FoundNo Family History Records FoundNo Family History Records FoundNo Family History Records FoundNo Family History Records Found Advance Directives No Advanced Directives Records FoundNo Advanced Directives Records FoundNo Advanced Directives Records FoundNo Advanced Directives Records FoundNo Advanced Directives Records Found Additional Source Comments INFORMATION SOURCE (unrecogn ized section and content) DATE CREATED AUTHOR 08/26/[address] [facility] DATE CREATED AUTHOR AUTHOR'S ORGANIZ ATION 09/06/2022 [facility] DATE CREATED AUTHOR AUTHOR'S ORGANIZ ATION 09/11/2022 [facility] DATE CREATED AUTHOR AUTHOR'S ORGANIZ ATION 12/16/2022 [facility] DATE CREATED AUTHOR AUTHOR'S ORGANIZ ATION 02/28/2023 [facility] Source Comments (unrecognize d section and content) In the event this informatio n is protected by the Federal Confidentiality of Alcohol and Drug Abuse Patient Records regulations: The Federal rules restrict any use of the information to criminally investigate or prosecute any alcohol or drug abuse patient.[facility] CenterIn the event this information is protected by the Federal Confidentiality of Alcohol and Drug Abuse Patient Records regulations: The Federal rules restrict any use of the information to criminally investigate or prosecute any alcohol or drug abuse patient.[facility] Reason for Visit (unrecogniz ed section and content) concern Reason Comments New Reason Comments Received Outside Medical Records FOR RECORDS PERTAINING TO PATIENTS WHO ARE OR HAVE BEEN ENROLLED IN A CHEMICAL DEPENDENCY/SUBSTANCEABUSE PROGRAM, SOME INFORMATION MAY BE OMITTED. This clinical summary was aggregated from multiple sources. Caution should be exercised in using it in the provision of clinical care. This summary normalizes information from multiple sources, and as a consequence, information in this document may materially change the coding, format and clinical context of patient data. In addition, data may be omitted in some cases. CLINICAL DECISIONS SHOULD BE BASED ON THE PRIMARY CLINICAL RECORDS. [facility]. provides no warranty or guarantee of the accuracy or completeness of information in this document.
[2023-07-18 08:01] VITALS: BP 142/85; PULSE 74; RESP 16; TEMP 36.3; O2SAT 98
[2023-07-18 09:00] VITALS: RESP 20
[2023-07-18 09:06] VITALS: BP 129/63; BP 155/83; PULSE 68; PULSE 69; O2SAT 94; O2SAT 96
[2023-07-18] MEDS: 0.9 % SODIUM CHLORIDE 10 ML SYRINGE - SALINE FLUSH 2 ML INJ (09:09)
[2023-07-18] MEDS: BUPIVACAINE HCL 0.25% PF 25 MG/10 ML VIAL 2 ML INJ (09:09)
[2023-07-18] MEDS: IOHEXOL 240 MG/ML - 10 ML VIAL INJ (09:09)
[2023-07-18] MEDS: METHYLPREDNISOLONE ACETATE 80 MG/ML VIAL INJ (09:10)
[2023-07-18] MEDS: LIDOCAINE HCL 2% PF 100 MG/5 ML VIAL 4 ML INJ (09:10)
--- NOTE | 2023-07-18 09:24 | W.PM.PROCNOT ---
Date of procedure: 07/18/23 Pre-op diagnosis: Spinal Stenosis Post-op diagnosis: same as pre-op Procedure: Caudal Epidural Steroid Injection With/without catheter advancement Pre-operative diagnosis includes Radiculopathy, Postoperative diagnosis same, Under fluoroscopic guidance Solution used for the injection is Marcaine 0.25% Depo-Medrol 80 mg total of 5ml Omnipaque 3cc,3ml total, 1ml was used for injection to confirm needle tip placement and catheter tip placement within the epidural space. catheter was removed with the tip intact. Anesthesia: local anesthesia using 2% lidocaine, total no more than 5 mL. Timeout process compliant After obtaining informed consent .the patient was brought to the procedure room .placed in the prone position . the area was prepped and draped in a sterile fashion utilizing betadine. 25 gauge needle was used to create a skin wheal over the sacral hiatus identified under fluoroscopy. 17 gauge touhy needle was inserted over the anesthetized area and directed to the ramona hiatus under fluoroscopic guidance . after piercing the sacrococcygeal ligament. Confirmation of needle tip placement within the epidural space was accomplished with injection of contrast solution. epidural catheter was advanced to the L5 level .catheter placement confirmed with injection of contrast solution . the steroid solution was then injected .needle and catheter was removed post procedurally. patient transferred to recovery area in stable condition. Discharged home after meeting criteria. Anesthesia: Local Surgeon: Philip Andres Condition: stable
== END 2023-07-18 09:16 | disposition home or self-care (01) ==
LOC: SURGOUT 07:27
PROVIDERS: PCP Internal Medicine; Visit Provider Anesthesiology Pain Medicine
DX: M48.061 Spinal stenosis, lumbar region without neurogenic claudication (principal); M54.16 Radiculopathy, lumbar region
CPT/HCPCS: 62323; J0665; J1040; Q9966

== ENCOUNTER 2023-07-27 09:47 | Outpatient (OUT) | payer MEDICARE, OTHER, SELFPAY ==
--- OUTSIDE RECORDS SUMMARY | 2023-07-27 09:51 | XMS_ITS | CCD ---
Author Name Unknown Address [address] [place] [address] Organization [facility] Care Team Providers Care Business Practices Officer Name Role Phone Unavailable Primary Care Provider [...] or physicia Propensity to adverse reactions Comment:Done [facility] Other (5 sources) Allergies Reconciled Propensity to adverse reactions Unknown [facility] Other Medications Current Medications Medication Drug Class(es) [...] a day Active take 2 tablets by [facility] once daily at bedtime Baclofen 10 MG [...] Comment on above: Take 1 capsule by [facility] twice daily for 90 days. ibuprofen 200 [...] on above: Take 1 capsule by mo [facility] once daily. Problems Active Problems Problem Classification [...] Valentin 09-09-2022 CNPN Telephone (NIQ) CHRISTIAN NOYOLA ([id number]) 1950 F Date Time Provider Department 09/09/22 [...] Reason for Visit: Received Outside Medical Records [6007] Prescriptions as of 09/09/2022 - MULTI-VITAMIN ORAL [...] Encounter Status:Closed by DEBBI ROMAN on 09/09/22 [facility] CNOVon 09-05-2022 CNOV Office Visit (NSFRVW ) CHRISTIAN NOYOLA ([id number]) 1950 F Date Time Provider Department 09/05/22 [...] 10-14 Moderat (more content not included)... Normal [facility] MG MAMM SCREEN 3D STEFAN CADon 07-27-2022 MG MAMM SCREEN 3D STEFAN CAD Patient: CHRISTIAN NOYOLA Exam Date: 07/27/2022 : 1950 Gender:F Ordering : DR JORDAN CASTILLO D.O. Admission #: [id number] Family : Order #: [id number] CLICK HERE TO VIEW EXAM RADIOLOGY REPORT [...] breast cancer at age 47. LOCATION: [facility] BREAST COMPOSITION: Heterogeneously dense,which may obscure small [...] MD on 07/27/2022 at 13:38 Normal [facility] MRI LSPINE WO CONon 06-03-20 22 MRI [...] by: BONNY SHORE Date: 2022-06-03 11:34 Normal [facility] CBC Without Differentialon 0 10-10-2020 Erythrocyte distribution width (RBC) [Ratio] 12.9 % Normal 11.9-15.3 [facility] Comment on above: Performed By: #### C BCNOOUTREACH, OUTREACH LIPID, OUTREACH CMP #### [address] Hematocrit (Bld) [Volume fraction] 42.4 % Normal 34.0-46.4 [facility] Comment on above: Performed By: #### C BCNOOUTREACH, OUTREACH LIPID, OUTREACH CMP #### [address] Hemoglobin (Bld) [Mass/Vol] 14.9 g/dL Normal 11.8-15.4 [facility] Comment on above: Performed By: #### C BCNOOUTREACH, OUTREACH LIPID, OUTREACH CMP #### [address] MCH (RBC) [Entitic mass] 31.9 pg Normal 24.7-34.3 [facility] Comment on above: Performed By: #### C BCNOOUTREACH, OUTREACH LIPID, OUTREACH CMP #### [address] MCV (RBC) [Entitic vol] 90.9 fL Normal 80-100 [facility] Comment on above: Performed By: #### C BCNOOUTREACH, OUTREACH LIPID, OUTREACH CMP #### [address] Mean Corpuscular HGB Conc 35.1 g/dL High 32.0-35.0 [facility] Comment on above: Performed By: #### C BCNOOUTREACH, OUTREACH LIPID, OUTREACH CMP #### [address] Platelet mean volume (Bld) [Entitic vol] 8.4 fL Normal 6.3-10.7 [facility] Comment on above: Result Comment: PERF ORMED BY: [place] [address] PATHOLOGIST [employer] EXECUTIVE [employer] M.D. Performed By: #### C BCNOOUTREACH, OUTREACH LIPID, OUTREACH CMP #### [address] Platelets (Bld) [#/Vol] 175 10*3/uL Normal 150-450 [facility] Comment on above: Performed By: #### C BCNOOUTREACH, OUTREACH LIPID, OUTREACH CMP #### [place] [id number] [place] RBC (Bld) [#/Vol] 4.66 10*6/uL Normal 3.60-5.00 [facility] Comment on above: Performed By: #### C BCNOOUTREACH, OUTREACH LIPID, OUTREACH CMP #### [facility] [address] WBC (Bld) [#/Vol] 5.2 10*3/uL Normal 3.8-11.6 [facility] Comment on above: Performed By: #### C BCNOOUTREACH, OUTREACH LIPID, OUTREACH CMP #### [facility] [address] [place] [address] CMP Outreachon 10-10-2020 Albumin [Mass/Vol] 4.0 g/dL Normal 3.2-5.5 [facility] Comment on above: Performed By: #### C BCNOOUTREACH, OUTREACH LIPID, OUTREACH CMP #### [facility] [address] [place] [address] ALP [Catalytic activity/Vol] 86 U/L Normal 32-92 [facility] Comment on above: Performed By: #### C BCNOOUTREACH, OUTREACH LIPID, OUTREACH CMP #### [facility] [address] [place] [address] ALT [Catalytic activity/Vol] 38 U/L Normal 10-60 [facility] Comment on above: Performed By: #### C BCNOOUTREACH, OUTREACH LIPID, OUTREACH CMP #### [facility] [address] [place] [address] AST [Catalytic activity/Vol] 31 U/L Normal 10-42 [facility] Comment on above: Performed By: #### C BCNOOUTREACH, OUTREACH LIPID, OUTREACH CMP #### [facility] [address] [place] [address] [place] Bilirubin [Mass/Vol] 0.6 mg/dL Normal 0.3-1.2 [facility] Comment on above: Performed By: #### C BCNOOUTREACH, OUTREACH LIPID, OUTREACH CMP #### [facility] [address] [place] [address] [place] Calcium [Mass/Vol] 9.6 mg/dL Normal 8.2-10.2 [facility] Comment on above: Performed By: #### C BCNOOUTREACH, OUTREACH LIPID, OUTREACH CMP #### [facility] [address] [place] [id number] [place] Chloride [Moles/Vol] 105 mmol/L Normal 95-114 [facility] Comment on above: Performed By: #### C BCNOOUTREACH, OUTREACH LIPID, OUTREACH CMP #### [facility] [address] [place] [address] [place] CO2 [Moles/Vol] 26.3 mmol/L Normal 22.0-30.0 [facility] Comment on above: Performed By: #### C BCNOOUTREACH, OUTREACH LIPID, OUTREACH CMP #### [facility] [address] [place] [address] [place] Creatinine [Mass/Vol] 1.03 mg/dL Normal 0.44-1.03 [facility] Comment on above: Performed By: #### C BCNOOUTREACH, OUTREACH LIPID, OUTREACH CMP #### [facility] [address] [place] [address] Estimated GFR ( Sharmaine > 60 [facility] Comment on above: Result Comment: GFR estimated reference range: According to KDOQI guidelines, <60 ml/min/1.73m2 is sufficient to diagnose a patient with chronic kidney disease. Performed By: #### C BCNOOUTREACH, OUTREACH LIPID, OUTREACH CMP #### [facility] [address] [place] [address] [place] Estimated GFR (Non- Am 53 [facility] Comment on above: Performed By: #### C BCNOOUTREACH, OUTREACH LIPID, OUTREACH CMP #### [facility] [address] [place] [id number] [place] Glucose [Mass/Vol] 94 mg/dL Normal 70-100 [facility] Comment on above: Result Comment: [place] Glucose Reference Range is dependent on time and content of last meal. Glucose of more than 200 mg/dL in a nonstressed, ambulatory subject supports the diagnosis of Diabetes Mellitus. ADA recommended reference range Performed By: #### C BCNOOUTREACH, OUTREACH LIPID, OUTREACH CMP #### [facility] [address] Potassium [Moles/Vol] 4.4 mmol/L Normal 3.5-5.1 [facility] Comment on above: Performed By: #### C BCNOOUTREACH, OUTREACH LIPID, OUTREACH CMP #### [facility] [address] [place] [address] [place] Protein [Mass/Vol] 7.0 g/dL Normal 6.1-7.9 [facility] Comment on above: Performed By: #### C BCNOOUTREACH, OUTREACH LIPID, OUTREACH CMP #### [facility] [address] Sodium [Moles/Vol] 141 mmol/L Normal 136-146 [facility] Comment on above: Performed By: #### C BCNOOUTREACH, OUTREACH LIPID, OUTREACH CMP #### [facility] [address] Urea nitrogen [Mass/Vol] 12 mg/dL Normal 9-23 [facility] Comment on above: Performed By: #### C BCNOOUTREACH, OUTREACH LIPID, OUTREACH CMP #### [facility] [address] [place] [address] Lipid Profile Outreachon Cholesterol [Mass/Vol] 336 mg/dL High 140-200 [facility] Comment on above: Result Comment: Chol less than 200 mg/dl low risk Chol 201-239 mg/dl borderline risk Chol 240 mg/dl and greater high risk Performed By: #### C BCNOOUTREACH, OUTREACH LIPID, OUTREACH CMP #### [facility] [address] [place] [address] [place] Cholesterol in HDL [Mass/Vol] 48 mg/dL Normal 35-85 [facility] Comment on above: Result Comment: HDL CHOL ATP-III CLASSIFICATION Cardiovascular Risk HDL > or equal to 60 mg/dL LOW HDL < 40 mg/dL HIGH Performed By: #### C BCNOOUTREACH, OUTREACH LIPID, OUTREACH CMP #### [facility] [address] Cholesterol.total/Ch olesterol in HDL [Mass ratio] 7.0 {ratio} Normal <5.0 [facility] Comment on above: Result Comment: PERF ORMED BY: [place] [address] PATHOLOGIST [employer] SALES EXECUTIVE [employer] M.D. Performed By: #### C BCNOOUTREACH, OUTREACH LIPID, OUTREACH CMP #### [facility] [address] [place] [address] LDL Cholesterol,Calculat ed 250 mg/dL High 0-100 [facility] Comment on above: Result Comment: LDL ATP III CLASSIFICATION LDL less than 100 mg/dL Optimal LDL 100-129 mg/dL Near or above optimal LDL 130-159 mg/dL Borderline high LDL 160-189 mg/dL High LDL greater than 189 mg/dL Very high Performed By: #### C BCNOOUTREACH, OUTREACH LIPID, OUTREACH CMP #### [facility] [address] [place] [address] Triglyceride w/Reflex 192 mg/dL High 35-149 [facility] Comment on above: Result Comment: TRIG ATP III CLASSIFICATION TRIG less than 150 mg/dL Normal TRIG 150-199 mg/dL Borderline high TRIG 200-500 mg/dL High TRIG greater than 500 mg/dL Very high Standard traceable to the Center for Disease Conrtrol and Prevention (CDC) test method. Performed By: #### C BCNOOUTREACH, OUTREACH LIPID, OUTREACH CMP #### [facility] [address] [place] [address] VLDL CHOLESTEROL 38 mg/dL Normal [facility] Comment on above: Performed By: #### C BCNOOUTREACH, OUTREACH LIPID, OUTREACH CMP #### [facility] [address] [place] [address] Vital Signs Date Time Vital Sign Value Performing Clinician Facility 05-11-2023 11:00-0400 Body height 165.1 cm Jordan Castillo Other [facility] Other 05-11-2023 11:00-0400 Body mass index (BMI) [Ratio] 32.41 kg/m2 Jordan Castillo Other [facility] Other 05-11-2023 11:00-0400 Body weight 88.36 kg Jordan Ball Other [facility] Other 05-11-2023 11:00-0400 Diastolic blood pressure 80 mm[Hg] Jordan Ball Other [facility] Other 05-11-2023 11:00-0400 Respiratory rate 12 /min Jordan Ball Other [facility] Other 05-11-2023 11:00-0400 Systolic blood pressure 118 mm[Hg] Jordan Ball Other [facility] Other 02-16-2023 13:53-0400 Body height 165.1 cm Jordan Ball Other [facility] Other 02-16-2023 13:53-0400 Diastolic blood pressure 72 mm[Hg] Jordan Ball Other [facility] Other 02-16-2023 13:53-0400 Systolic blood pressure 152 mm[Hg] Jordan Ball Other [facility] Other 09-05-2022 12:34-0500 Body height 162.6 cm Jorge Desai MD Work Phone: 09-05-2022 12:34-0500 Body temperature 97.59 [degF] Jorge Desai MD Work Phone: 09-05-2022 12:34-0500 Body weight 88.91 kg Jorge Desai MD Work Phone: 09-05-2022 12:34-0500 Diastolic blood pressure 87 mm[Hg] Jorge Desai MD Work Phone: 09-05-2022 12:34-0500 Heart rate 67 /min Jorge Desai MD Work Phone: 09-05-2022 12:34-0500 Respiratory rate 20 /min Jorge Desai MD Work Phone: 09-05-2022 12:34-0500 SaO2% (BldA) [Mass fraction] 98 % Jorge Desai MD Work Phone: 09-05-2022 12:34-0500 Systolic blood pressure 183 mm[Hg] Jorge Desai MD Work Phone: Encounters Encounter Date Encounter Type Care Provider Facility Start: 06-21-2023 End: 06-21-2023 ambulatory Jordan Castillo Other [facility] Other Start: 06-21-2023 Telephone encounter Jordan Castillo [facility] Start: 06-19-2023 End: 06-19-2023 ambulatory Jordan Jonathan Other [facility] Other Start: 06-19-2023 Office outpatient vi sit 15 minutes Jordan Ball [facility] Start: 05-18-2023 End: 05-18-2023 ambulatory Jordan Jonathan Other [facility] Other Start: 05-18-2023 Telephone encounter Jordan Castillo [facility] Start: 05-11-2023 End: 05-11-2023 ambulatory Jordan Ball Other [facility] Other Start: 05-11-2023 Office outpatient vi sit 25 minutes Jordan Ball [facility] Start: 03-21-2023 End: 03-21-2023 ambulatory Jordan Ball Other [facility] Other Start: 03-21-2023 Telephone encounter Jordan Jonathan [facility] Start: 02-19-2023 End: 02-19-2023 ambulatory Jordan Ball Other [facility] Other Start: 02-19-2023 Telephone encounter Jordan COSTELLO [facility] Start: 02-16-2023 End: 02-16-2023 ambulatory Jordan Castillo Other [facility] Other Start: 02-16-2023 Telephone encounter Jordan COSTELLO [facility] Start: 02-10-2023 End: 02-10-2023 ambulatory Jordan Castillo Other [facility] Other Start: 02-10-2023 Telephone encounter Jordan COSTELLO [facility] Start: 02-09-2023 End: 02-09-2023 ambulatory Jordan Castillo Other [facility] Other Start: 02-09-2023 Telephone encounter Jordan COSTELLO [facility] Start: 02-06-2023 End: 02-07-2023 ambulatory Jessica Mi MD Facility:[facility] Start: 12-06-2022 End: 12-07-2022 ambulatory NARENDRANATH LAKSHMIPATHY [...] Start: 09-05-2022 End: 09-05-2022 ambulatory JORGE DESAI Facility:[facility] Start: 09-05-2022 End: 09-05-2022 Patient encounter [...] 07-10-2022 ADVANCE DIRECTIVE DISCUSSION ADVANCE DIRECTIVE DISCUSSION Start: 07-10-2022 DEPRESSION ASSESSMENT DEPRESSION ASS ESSMENT Start: 2015 BONE DENSITY BONE DENSITY Start: 2015 PNEUMOCOCCAL: 65+ (1 - PCV) PNEUMOCOCCAL: 65+ (1 - PCV) Start: 2000 SHINGRIX VACCINE (1 of 2) SHINGRIX V ACCINE (1 of 2) Start: 1995 COLOGUARD (FIT-DNA) COLOGUARD (FIT-D NA) Start: 1995 Colonoscopy COLONOSCOPY Start: 1995 COLORECTAL CANCER SCREENING COLORECTAL CANCER SCREENING Start: [address] COLONOGRAPHY [facility] Start: 1995 DIABETES SCREEN DIABETES SCREEN [facility] Start: 1995 FECAL OCCULT BLOOD FECAL OCCULT BLOO D Start: 1995 LIPID SCREEN LIPID SCREEN Start: 1995 SIGMOIDOSCOPY SIGMOIDOSCOPY [facility] Start: 1990 Mammography MAMMOGRAM Start: 1969 Urine microalbumin profile DTAP,TDAP ,TD (1 - Tdap) Start: 1968 HEPATITIS C SCREENING HEPATITIS C SC REENING [facility] Immunizations Immunization Date Immunization Notes Care Provider Fa cility 11-04-2022 COVID-19 Pfizer (bivalent) Jordan Castillo Other [facility] Other 04-25-2022 influenza, high dose seasonal, preservative-free Jordan Castillo Other [facility] Other 04-25-2022 COVID-19 Pfizer (bivalent) Jordan Castillo Other [facility] Other 02-15-2022 COVID-19 Pfizer Jordan Jet davida Other [facility] Other 08-13-2020 COVID-19 Vaccine Pfi zer - Documentation Purposes Only Jordan Castillo Other [facility] Other 03-03-2020 influenza virus vaccine, split virus (incl. purified surface antigen) Jordan Castillo Other [facility] Other 04-16-2018 influenza virus vaccine, split virus (incl. purified surface antigen) Jordan Castillo Other [facility] Other 06-22-2015 pneumococcal conjuga te vaccine, 13 valent Jordan Castillo Other [facility] Other 04-10-2015 pneumococcal polysaccharide vaccine, 23 valent Jordan Castillo Other [facility] Other 04-15-2014 tetanus and diphther ia toxoids, adsorbed, preservative free, for adult use (5 Lf of tetanus toxoid and 2 Lf of diphtheria toxoid) Jordan Castillo Other [facility] Other 10-11-2013 pneumococcal polysaccharide vaccine, 23 valent Jordan Castillo Other [facility] Other Payers Date Payer Category Payer Medicare [id number] 2015 Unknown [id number] 1959 Medicare [id number] 1959 Unknown [id number] 1950 Unknown [id number] 2.16.84 [id number] 1950 Unknown [id number] 2.16.84 [id number] 1950 Unknown [id number] 2.16.84 [id number] 1950 Unknown [id number] 2.16.84 [id number] 1950 Unknown [id number] 2.16.84 0.1.874630.3.579.2.593 1950 Unknown [id number] 2.16.84 0.1.974508.3.579.2.593 1950 Unknown [id number] 2.16.84 0.1.300912.3.579.2.593 1950 Unknown [id number] 2.16.84 0.1.885502.3.579.2.593 1950 Unknown [id number] 2.16.84 0.1.731587.3.579.2.593 1950 Unknown [id number] 2.16.84 0.1.632917.3.579.2.593 1950 Unknown [id number] 2.16.84 0.1.364498.3.579.2.593 1950 Unknown [id number] 2.16. [id number] Social History Date Type Detail Facility Start: 09-05-2022 Tobacco smoking status NHIS Ex-smoker End: 08-22-1979 History of tobacco use Current smoker End: 08-22-1979 History of tobacco use Cigarette Smoker Start: 1950 Sex Assigned At Female [facility] Sex Assigned At Sex Assigned At Bir th [facility] Other Clinical Notes 07-19-2022 to 06-19-2023 Note [...] ARB and increase Amlodipine to 5mg bid [facility] Other 11-09-2023 Evaluation note* Encounter Date Diagnosis Assessment Notes Treatment Notes Treatment Clinical Notes May, Primary hypertension (ICD-10 - I10) [facility] Other 11-02-2023 Evaluation note* Encounter Date Diagnosis [...] and applesauce. Stool softener and Miralax optional [facility] Other 09-12-2023 Evaluation note* Encounter Date Diagnosis Assessment Notes Treatment Notes Treatment Clinical Notes Mar, Primary hypertension (ICD-10 - I10) [facility] Other 08-13-2023 Evaluation note* Encounter Date Diagnosis Assessment Notes Treatment Notes Treatment Clinical Notes Feb, Primary hypertension (ICD-10 - I10) [facility] Other 08-03-2023 Evaluation note* Encounter Date Diagnosis Assessment Notes Treatment Notes Treatment Clinical Notes Feb, Primary hypertension (ICD-10 - I10) [facility] Other 05-30-2023 NoteCONSULTATION CONSULTATION DATE: 12/06/2022 TO: [...] our patients to inform us about any wmyx-wjq-nykxsgn medications or herbal remedies/nutritional supplements/alternative remedies. 2. [...] treatment options with their primary care provider.[id number] Note CONSULTATION CONSULTATION DATE: 11/03/2022 TO: Jordan [...] our patients to inform us about any gwkw-oqh-nttbwug medications or herbal remedies/nutritional supplements/alternative remedies. 2. [...] treatment options with their primary care provider.[id number] Note CONSULTATION CONSULTATION DATE: 10/06/2022 TO: Jordan [...] regimen of Neurontin 300 mg b.i. d.[id number] Miscellaneous Notes* Telephone Encounter - Debbi Roman RN - 09/09/2022 2:52 PM EST Will forward for review. Scan on 09/08/2022 2:37 PM by External Provider: Spine Injection * Telephone Encounter - Tanya Navarro - 09/09/2022 2:44 PM EST Received spine injection report by fax. Scanned to patient's chart for provider review. documented in this encounter03-02-2023 NoteCONSULTATION CONSULTATION DATE: 09/08/2022 HISTORY: This is a very pleasant, 72-year-old female who returns to the clinic, status post lumbar epidural steroid injection completed on 08/02/2022. The patient states she received 25% relief for 2-3 weeks. Patient was seen by Dr. Desai at the Neurosurgery. The patient does have multilevel spinal [...] care will be established at that time.[facility] 09-05-2022 NoteHNO ID: [id number] Author: Jorge Desai MD Service: ? Author [...] 33.64 kg/m? Oriented x3 (more content not included)...[id number] History of Present illness Narrative* Jorge Desai [...] 2022 at 1:23 PM. documented in this encounter01-10-2023 NoteCONSULTATION CONSULTATION DATE: 07/19/2022 HISTORY OF PRESENT [...] The patient is hoping to go to [place] in a few weeks. We have also strongly recommended to the patient for a neurosurgical consult, given the multiple levels the patient has pathology. I believe the surgical consult will also help define for the patient progression components. In the interim, the patient will also continue with extension exercises. The patient understands and would like to proceed. CC: Jordan Castillo D.O.[facility] note* Diagnosis Degenerative scoliosis- Primary documented in this encounter [facility]No [facility] Other History general Narrative - Reported* Type [...] x's 2 Hospitalization History SEE SURGICAL HX [facility] Other Summary Purpose Family History No Family History Records FoundNo Family History Records FoundNo Family History Records FoundNo Family History Records FoundNo Family History Records Found Advance Directives No Advanced Directives Records FoundNo Advanced Directives Records FoundNo Advanced Directives Records FoundNo Advanced Directives Records FoundNo Advanced Directives Records Found Additional Source Comments INFORMATION SOURCE (unrecogn ized section and content) DATE CREATED AUTHOR 08/26/2021 [facility] DATE CREATED AUTHOR AUTHOR'S ORGANIZ ATION 09/06/2022 [facility] DATE CREATED AUTHOR AUTHOR'S ORGANIZ ATION 09/11/2022 [facility] DATE CREATED AUTHOR AUTHOR'S ORGANIZ ATION 12/16/2022 [facility] DATE CREATED AUTHOR AUTHOR'S ORGANIZ ATION 02/28/[address] [facility] Source Comments (unrecognize d section and content) In the event this informatio n is protected by the Federal Confidentiality of Alcohol and Drug Abuse Patient Records regulations: The Federal rules restrict any use of the information to criminally investigate or prosecute any alcohol or drug abuse patient.In the event this information is protected by the Federal Confidentiality of Alcohol and Drug Abuse Patient Records regulations: The Federal rules restrict any use of the information to criminally investigate or prosecute any alcohol or drug abuse patient. Reason for Visit (unrecogniz ed section and [...] BE BASED ON THE PRIMARY CLINICAL RECORDS. [facility]. provides no warranty or guarantee of the accuracy or completeness of information in this document.
--- NOTE | 2023-07-27 10:19 | P.CN_ITS ---
Consult Note: HPI Data of Consult Patient: known to practice within the last 3 years Requesting Physician: Myra Rosenthal NP Primary Care Provider: Jordan Castillo, DO Consult Narrative Reason for consult: f/u Narrative: Shoshana Noyola a pleasant 72 year old female presents for evaluation and management of chronic low back pain with radicular pain to RLE. Patient reporting 50% ongoing improvement from recent caudal NOVA, helped with waistline pain but still having pain and heaviness weakness to right thigh. Pain today 1/10 increases to 4/10 at times. Currently on ibuprofen, zonegran 150mg HS, baclofen 20mg HS with mild benefit. Patient was evaluated by [facility] last august and she is seeing them again this August. cc:: CC: Myra Rosenthal NP Review of Systems ROS Status of ROS 10 or more systems reviewed and unremark able except as noted in history and below Musculoskeletal Reports: back pain, extremity pain and muscle weakness PFSH PFSH Medical History (Updated 07/27/23 @ 10:36 by Myra Rosenthal NP) Low back pain ?M54.50 - Low back pain, unspecified (ICD-10) Obesity ?E66.9 - Obesity, unspecified (ICD-10) Former smoker ?Z87.891 - Personal history of nicotine dependence (ICD-10) High cholesterol ?E78.00 - Pure hypercholesterolemia, unspecified (ICD-10) Surgical History History of tonsillectomy and adenoidectomy ?Z90.89 - Acquired absence of other organs (ICD-10) History of hysteroscopy ?Z98.890 - Other specified postprocedural states (ICD-10) H/O fasciotomy ?Z98.890 - Other specified postprocedural states (ICD-10) H/O lumbosacral spine surgery ?Z98.890 - Other specified postprocedural states (ICD-10) H/O shoulder surgery ?Z98.890 - Other specified postprocedural states (ICD-10) Meds Home Medications and Allergies Home Medications Medication Instructions Recorded Confirmed Type baclofen 10 mg tablet 10 mg PO TID PRN muscle spasm 12/30/22 07/18/23 History ibuprofen 600 mg tablet 600 mg PO .QD PRN pain 12/30/22 07/18/23 History multivitamin with folic acid 400 tab PO .QD 12/30/22 History mcg tablet (Daily-Carla (with folic acid)) hydrocodone 5 mg-acetaminophen 325 1 tab PO DAILY PRN pain 01/18/23 07/18/23 History mg tablet amlodipine 5 mg tablet mg 02/16/23 History zonisamide 50 mg capsule 150 mg PO .HS 05/09/23 07/18/23 History Allergies Allergy/AdvReac Type Severity Reaction Status Date / Time No Known Drug Allergies Allergy Verified 04/11/23 08:26 Exam Constitutional Documenting provider has reviewed patient's vital signs: yes Common normals: no apparent distress, oriented x3, healthy appearing, alert and well nourished General appearance: cooperative HENMT Common normals: normocephalic, hearing grossly normal bilaterally and moist oral mucous membranes Head and scalp: normocephalic Eye Common normals: PERRL Pupil: PERRL Neck & C-Spine Common normals: full ROM General: normal visual inspection Chest Common normals: inspection of chest normal Respiratory Common normals: normal respiratory effort, no retractions and no use of accesso ry muscles Back & Pelvis Lumbar spine/lower back: pain with ROM Sacroiliac joints: SI joints normal Extremity Common normals: normal to inspection and full ROM Neuro Common normals: oriented x3, CN's II-XII intact bilaterally, moves all extremities, no focal motor deficits, no sensory deficits noted and deep tendon reflexes 2+ bilaterally Sensorium/orientation: alert Motor exam: no movement abnormalities noted and strength abnormal (right LE 4/5) Psych Common normals: mental status grossly normal, thought process normal, coope rative, affect normal, speech normal and activity/motor behavior normal Speech: normal speech Thought process: normal thought process Results Additional Findings Additional findings: I have checked an [facility]AR[facility] report on this patient today and there are no aberrancies noted in the prescribing history.?? A drug screen was completed and reviewed within the last year, and if there has not been a drug screen completed we ordered one today to monitor higher risk, state monitored pain medication use. As part of providing excellent, safe, comprehensive care, the following was completed at our patient's visit: 1. A medication reconciliation and review to ensure accurate knowledge of current/active medications, including asking our patients to inform us about any [id number]-cyz-lsjldda medications or herbal remedies/nutritional supplements/alternative remedies. 2. A review to specifically ensure our patients have had annual screening for: elevated body mass index (BMI), tobacco use, screening for depression, and screening for unhealthy alcohol use. When screening is concerning, patients are provided with education and the specific recommendation to discuss the concerning health issue and treatment options with their primary care provider. Assessment and Plan Assessment and Plan (1) Lumbar stenosis with neurogenic claudication: (2) Lumbar spondylosis: Plan increase zonegran 200mg HS caution TCAs SNRIs with elevated BP, on amlodipine through PCP f/u with NS as planned, agree that this pain continues to follow L3-4 dermatomal pattern on right side. f/u 3 months, consider alternative level NOVA
== END 2023-07-27 09:48 | disposition home or self-care (01) ==
LOC: PM 09:47
PROVIDERS: PCP Internal Medicine; Visit Provider Nurse Practitioner
DX: M48.062 Spinal stenosis, lumbar region with neurogenic claudication (principal); M47.816 Spondylosis without myelopathy or radiculopathy, lumbar region
CPT/HCPCS: G0463

== ENCOUNTER 2023-07-31 12:48 | Outpatient (OUT) | payer MEDICARE, OTHER, SELFPAY ==
--- NOTE | 2023-07-31 12:50 | MM_ITS ---
Patient Name: CHRISTIAN FISCHER MR#: [id number] : 1950 Exam Date: 07/31/2023 Ordering Doctor: DR Jordan Castillo D.O. RADIOLOGY REPORT PROCEDURE: MM TOMOSYNTHESIS SCREENING BI COMPARISON: MG MAMM SCREEN 3D STEFAN CAD, 07/26/2021. MG MAMM SCREEN 3D STEFAN CAD, 07/27/2022. INDICATIONS: screening Calculator Name NCI Breast Cancer Risk Assessment Tool 5 Year Breast Cancer Risk 3.70% Lifetime Breast Cancer Risk 8.90% Personal Breast Cancer No Personal Ovarian Cancer No Treatments None Family Cancers Father with anal cancer at age 79; Mother with breast cancer at age 47. LOCATION: [facility] BREAST COMPOSITION: Heterogeneously dense,which may obscure small masses. FINDINGS: DIAGNOSTIC CATEGORY 2--BENIGN FINDING. NO CHANGE FROM COMPARISON. Scattered benign-appearing nodules are present. Scattered benign-appearing calcifications are present. Scattered benign-appearing lymph nodes are present. RIGHT BREAST: No significant suspicious finding. LEFT BREAST: No significant suspicious finding. RECOMMENDATIONS: ROUTINE MAMMOGRAM AND CLINICAL EVALUATION IN 12 MONTHS. PLEASE NOTE: A NORMAL MAMMOGRAM DOES NOT EXCLUDE THE POSSIBILITY OF BREAST CANCER. A CLINICALLY SUSPICIOUS PALPABLE LUMP SHOULD BE BIOPSIED. Dictated by: Suraj Snow MD on 07/31/2023 at 15:29 Approved by: Suraj Snow MD on 07/31/2023 at 15:31
--- OUTSIDE RECORDS SUMMARY | 2023-07-31 12:51 | XMS_ITS | CCD ---
Author Name Unknown Address [address] [place] [address] Organization [facility] Care Team Providers [employer] Supervisor Name Role Phone Unavailable Primary Care Provider [...] SAMUEL ., DR ZACARIAS Garner Attending Unavailable LZIZIE ., DR ZACARIAS Garner Admitting Unavailable DR JORDAN CASTILLO Primary Care Unavailable SAMUEL ., DR ZACARIAS Garner Consulting Unavailable SAMUEL ., DR ZACARIAS Graner Consulting Unavailable SAMUEL ., DR ZACARIAS Garner [...] or physicia Propensity to adverse reactions Comment:Done [facility] Other (5 sources) Allergies Reconciled Propensity to adverse reactions Unknown [facility] Other Medications Current Medications Medication Drug Class(es) [...] a day Active take 2 tablets by [facility] once daily at bedtime Baclofen 10 MG [...] Comment on above: Take 1 capsule by [facility] twice daily for 90 days. ibuprofen 200 [...] Take 1 capsule by [facility] once daily. Problems Active Problems Problem Classification [...] Valentin 09-09-2022 CNPN Telephone (NIQ) CHRISTIAN NOYOLA ([id number]) 1950 F Date Time Provider Department 09/09/22 [...] Reason for Visit: Received Outside Medical Records [5995] Prescriptions as of 09/09/2022 - MULTI-VITAMIN ORAL [...] Encounter Status:Closed by DEBBI ROMAN on 09/09/22 [facility] CNOVon 09-05-2022 CNOV Office Visit (NSFRVW ) CHRISTIAN NOYOLA ([id number]) 1950 F Date Time Provider Department 09/05/22 [...] 10-14 Moderat (more content not included)... Normal [facility] MG MAMM SCREEN 3D STEFAN CADon 07-27-2022 MG MAMM SCREEN 3D STEFAN CAD Patient: CHRISTIAN NOYOLA Exam Date: 07/27/2022 : 1950 Gender:F Ordering : DR JORDAN CASTILLO D.O. Admission #: [id number] Family : Order #: [id number] CLICK HERE TO VIEW EXAM RADIOLOGY REPORT [...] breast cancer at age 47. LOCATION: [facility] BREAST COMPOSITION: Heterogeneously dense,which may obscure [...] MD on 07/27/2022 at 13:38 Normal [facility] MRI LSPINE WO CONon 06-03-20 22 [...] by: BONNY SHORE Date: 2022-06-03 11:34 Normal [facility] CBC Without Differentialon 0 10-10-2020 Erythrocyte distribution width (RBC) [Ratio] 12.9 % Normal 11.9-15.3 [facility] Comment on above: Performed By: #### C BCNOOUTREACH, OUTREACH LIPID, OUTREACH CMP #### [address] Hematocrit (Bld) [Volume fraction] 42.4 % Normal 34.0-46.4 [facility] Comment on above: Performed By: #### C BCNOOUTREACH, OUTREACH LIPID, OUTREACH CMP #### [address] Hemoglobin (Bld) [Mass/Vol] 14.9 g/dL Normal 11.8-15.4 [facility] Comment on above: Performed By: #### C BCNOOUTREACH, OUTREACH LIPID, OUTREACH CMP #### [address] MCH (RBC) [Entitic mass] 31.9 pg Normal 24.7-34.3 [facility] Comment on above: Performed By: #### C BCNOOUTREACH, OUTREACH LIPID, OUTREACH CMP #### [address] MCV (RBC) [Entitic vol] 90.9 fL Normal 80-100 [facility] Comment on above: Performed By: #### C BCNOOUTREACH, OUTREACH LIPID, OUTREACH CMP #### [address] Mean Corpuscular HGB Conc 35.1 g/dL High 32.0-35.0 [facility] Comment on above: Performed By: #### C BCNOOUTREACH, OUTREACH LIPID, OUTREACH CMP #### [address] Platelet mean volume (Bld) [Entitic vol] 8.4 fL Normal 6.3-10.7 [facility] Comment on above: Result Comment: PERF ORMED BY: [place] [address] PATHOLOGIST [employer] OFFICER RANDY STEEL M.D. Performed By: #### C BCNOOUTREACH, OUTREACH LIPID, OUTREACH CMP #### [address] Platelets (Bld) [#/Vol] 175 10*3/uL Normal 150-450 [facility] Comment on above: Performed By: #### C BCNOOUTREACH, OUTREACH LIPID, OUTREACH CMP #### [place] [id number] [place] RBC (Bld) [#/Vol] 4.66 10*6/uL Normal 3.60-5.00 [facility] Comment on above: Performed By: #### C BCNOOUTREACH, OUTREACH LIPID, OUTREACH CMP #### [facility] [address] WBC (Bld) [#/Vol] 5.2 10*3/uL Normal 3.8-11.6 [facility] Comment on above: Performed By: #### C BCNOOUTREACH, OUTREACH LIPID, OUTREACH CMP #### [facility] [address] [place] [address] CMP Outreachon 10-10-2020 Albumin [Mass/Vol] 4.0 g/dL Normal 3.2-5.5 [facility] Comment on above: Performed By: #### C BCNOOUTREACH, OUTREACH LIPID, OUTREACH CMP #### [facility] [address] [place] [address] ALP [Catalytic activity/Vol] 86 U/L Normal 32-92 [facility] Comment on above: Performed By: #### C BCNOOUTREACH, OUTREACH LIPID, OUTREACH CMP #### [facility] [address] [place] [address] ALT [Catalytic activity/Vol] 38 U/L Normal 10-60 [facility] Comment on above: Performed By: #### C BCNOOUTREACH, OUTREACH LIPID, OUTREACH CMP #### [facility] [address] [place] [address] AST [Catalytic activity/Vol] 31 U/L Normal 10-42 [facility] Comment on above: Performed By: #### C BCNOOUTREACH, OUTREACH LIPID, OUTREACH CMP #### [facility] [address] [place] [address] [place] Bilirubin [Mass/Vol] 0.6 mg/dL Normal 0.3-1.2 [facility] Comment on above: Performed By: #### C BCNOOUTREACH, OUTREACH LIPID, OUTREACH CMP #### [facility] [address] [place] [address] [place] Calcium [Mass/Vol] 9.6 mg/dL Normal 8.2-10.2 [facility] Comment on above: Performed By: #### C BCNOOUTREACH, OUTREACH LIPID, OUTREACH CMP #### [facility] [address] [place] [id number] [place] Chloride [Moles/Vol] 105 mmol/L Normal 95-114 [facility] Comment on above: Performed By: #### C BCNOOUTREACH, OUTREACH LIPID, OUTREACH CMP #### [facility] [address] [place] [address] [place] CO2 [Moles/Vol] 26.3 mmol/L Normal 22.0-30.0 [facility] Comment on above: Performed By: #### C BCNOOUTREACH, OUTREACH LIPID, OUTREACH CMP #### [facility] [address] [place] [address] [place] Creatinine [Mass/Vol] 1.03 mg/dL Normal 0.44-1.03 [facility] Comment on above: Performed By: #### C BCNOOUTREACH, OUTREACH LIPID, OUTREACH CMP #### [facility] [address] [place] [address] Estimated GFR ( Sharmaine > 60 [facility] Comment on above: Result Comment: GFR estimated reference range: According to KDOQI guidelines, <60 ml/min/1.73m2 is sufficient to diagnose a patient with chronic kidney disease. Performed By: #### C BCNOOUTREACH, OUTREACH LIPID, OUTREACH CMP #### [facility] [address] [place] [address] [place] Estimated GFR (Non- Am 53 [facility] Comment on above: Performed By: #### C BCNOOUTREACH, OUTREACH LIPID, OUTREACH CMP #### [facility] [address] [place] [id number] [place] Glucose [Mass/Vol] 94 mg/dL Normal 70-100 [facility] Comment on above: Result Comment: [place] Glucose Reference Range is dependent on time and content of last meal. Glucose of more than 200 mg/dL in a nonstressed, ambulatory subject supports the diagnosis of Diabetes Mellitus. ADA recommended reference range Performed By: #### C BCNOOUTREACH, OUTREACH LIPID, OUTREACH CMP #### [facility] [address] Potassium [Moles/Vol] 4.4 mmol/L Normal 3.5-5.1 [facility] Comment on above: Performed By: #### C BCNOOUTREACH, OUTREACH LIPID, OUTREACH CMP #### [facility] [address] [place] [address] [place] Protein [Mass/Vol] 7.0 g/dL Normal 6.1-7.9 [facility] Comment on above: Performed By: #### C BCNOOUTREACH, OUTREACH LIPID, OUTREACH CMP #### [facility] [address] Sodium [Moles/Vol] 141 mmol/L Normal 136-146 [facility] Comment on above: Performed By: #### C BCNOOUTREACH, OUTREACH LIPID, OUTREACH CMP #### [facility] [address] Urea nitrogen [Mass/Vol] 12 mg/dL Normal 9-23 [facility] Comment on above: Performed By: #### C BCNOOUTREACH, OUTREACH LIPID, OUTREACH CMP #### [facility] [address] [place] [address] Lipid Profile Outreachon Cholesterol [Mass/Vol] 336 mg/dL High 140-200 [facility] Comment on above: Result Comment: Chol less than 200 mg/dl low risk Chol 201-239 mg/dl borderline risk Chol 240 mg/dl and greater high risk Performed By: #### C BCNOOUTREACH, OUTREACH LIPID, OUTREACH CMP #### [facility] [address] [place] [address] [place] Cholesterol in HDL [Mass/Vol] 48 mg/dL Normal 35-85 [facility] Comment on above: Result Comment: HDL CHOL ATP-III CLASSIFICATION Cardiovascular Risk HDL > or equal to 60 mg/dL LOW HDL < 40 mg/dL HIGH Performed By: #### C BCNOOUTREACH, OUTREACH LIPID, OUTREACH CMP #### [facility] [address] Cholesterol.total/Ch olesterol in HDL [Mass ratio] 7.0 {ratio} Normal <5.0 [facility] Comment on above: Result Comment: PERF ORMED BY: [place] [address] PATHOLOGIST [employer]ICER RANDY STEEL M.D. Performed By: #### C BCNOOUTREACH, OUTREACH LIPID, OUTREACH CMP #### [facility] [address] [place] [address] LDL Cholesterol,Calculat ed 250 mg/dL High 0-100 [facility] Comment on above: Result Comment: LDL ATP III CLASSIFICATION LDL less than 100 mg/dL Optimal LDL 100-129 mg/dL Near or above optimal LDL 130-159 mg/dL Borderline high LDL 160-189 mg/dL High LDL greater than 189 mg/dL Very high Performed By: #### C BCNOOUTREACH, OUTREACH LIPID, OUTREACH CMP #### [facility] [address] [place] [address] Triglyceride w/Reflex 192 mg/dL High 35-149 [facility] Comment on above: Result Comment: TRIG ATP III CLASSIFICATION TRIG less than 150 mg/dL Normal TRIG 150-199 mg/dL Borderline high TRIG 200-500 mg/dL High TRIG greater than 500 mg/dL Very high Standard traceable to the Center for Disease Conrtrol and Prevention (CDC) test method. Performed By: #### C BCNOOUTREACH, OUTREACH LIPID, OUTREACH CMP #### [facility] [address] [place] [address] VLDL CHOLESTEROL 38 mg/dL Normal [facility] Comment on above: Performed By: #### C BCNOOUTREACH, OUTREACH LIPID, OUTREACH CMP #### [facility] [address] [place] [address] Vital Signs Date Time Vital Sign Value Performing Clinician Facility 05-11-2023 11:00-0400 Body height 165.1 cm Jordan Castillo Other [facility] Other 05-11-2023 11:00-0400 Body mass index (BMI) [Ratio] 32.41 kg/m2 Jordan Castillo Other [facility] Other 05-11-2023 11:00-0400 Body weight 88.36 kg Jordan Ball Other [facility] Other 05-11-2023 11:00-0400 Diastolic blood pressure 80 mm[Hg] Jordan Ball Other [facility] Other 05-11-2023 11:00-0400 Respiratory rate 12 /min Jordan Ball Other [facility] Other 05-11-2023 11:00-0400 Systolic blood pressure 118 mm[Hg] Jordan Ball Other [facility] Other 02-16-2023 13:53-0400 Body height 165.1 cm Jordan Ball Other [facility] Other 02-16-2023 13:53-0400 Diastolic blood pressure 72 mm[Hg] Jordan Ball Other [facility] Other 02-16-2023 13:53-0400 Systolic blood pressure 152 mm[Hg] Jordan Ball Other [facility] Other 09-05-2022 12:34-0500 Body height 162.6 cm Jorge Desai MD Work Phone: [facility] 09-05-2022 12:34-0500 Body temperature 97.59 [degF] Jorge Desai MD Work Phone: [facility] 09-05-2022 12:34-0500 Body weight 88.91 kg Jorge Desai MD Work Phone: [facility] 09-05-2022 12:34-0500 Diastolic blood pressure 87 mm[Hg] Jorge Desai MD Work Phone: [facility] 09-05-2022 12:34-0500 Heart rate 67 /min Jorge Desai MD Work Phone: [facility] 09-05-2022 12:34-0500 Respiratory rate 20 /min Jorge Desai MD Work Phone: [facility] 09-05-2022 12:34-0500 SaO2% (BldA) [Mass fraction] 98 % Jorge Desai MD Work Phone: [facility] 09-05-2022 12:34-0500 Systolic blood pressure 183 mm[Hg] Jorge Desai MD Work Phone: [facility] Encounters Encounter Date Encounter Type Care Provider Facility Start: 06-21-2023 End: 06-21-2023 ambulatory Jordan Castillo Other [facility] Other Start: 06-21-2023 Telephone encounter Jordan Castillo [facility] Start: 06-19-2023 End: 06-19-2023 ambulatory Jordan Jonathan Other [facility] Other Start: 06-19-2023 Office outpatient vi sit 15 minutes Jordan Ball [facility] Start: 05-18-2023 End: 05-18-2023 ambulatory Jordan Jonathan Other [facility] Other Start: 05-18-2023 Telephone encounter Jordan Castillo [facility] Start: 05-11-2023 End: 05-11-2023 ambulatory Jordan Ball Other [facility] Other Start: 05-11-2023 Office outpatient vi sit 25 minutes Jordan Ball [facility] Start: 03-21-2023 End: 03-21-2023 ambulatory Jordan Ball Other [facility] Other Start: 03-21-2023 Telephone encounter Jordan Jonathan [facility] Start: 02-19-2023 End: 02-19-2023 ambulatory Jordan Ball Other [facility] Other Start: 02-19-2023 Telephone encounter Jordan COSTELLO [facility] Start: 02-16-2023 End: 02-16-2023 ambulatory Jordan Castillo Other [facility] Other Start: 02-16-2023 Telephone encounter Jordan COSTELLO [facility] Start: 02-10-2023 End: 02-10-2023 ambulatory Jordan Castillo Other [facility] Other Start: 02-10-2023 Telephone encounter Jordan COSTELLO [facility] Start: 02-09-2023 End: 02-09-2023 ambulatory Jordan Castillo Other [facility] Other Start: 02-09-2023 Telephone encounter Jordan COSTELLO [facility] Start: 02-06-2023 End: 02-07-2023 ambulatory Jessica Mi MD Facility:[facility] Start: 12-06-2022 End: 12-07-2022 ambulatory NARENDRANATH LAKSHMIPATHY [...] Start: 09-05-2022 End: 09-05-2022 ambulatory JORGE DESAI Facility:[facility] Start: 09-05-2022 End: 09-05-2022 Patient encounter [...] 07-10-2022 ADVANCE DIRECTIVE DISCUSSION ADVANCE DIRECTIVE DISCUSSION [facility] Start: 07-10-2022 DEPRESSION ASSESSMENT DEPRESSION ASS ESSMENT [facility] Start: 2015 BONE DENSITY BONE DENSITY [facility] Start: 2015 PNEUMOCOCCAL: 65+ (1 - PCV) PNEUMOCOCCAL: 65+ (1 - PCV) [facility] Start: 2000 SHINGRIX VACCINE (1 of 2) SHINGRIX V ACCINE (1 of 2) [facility] Start: 1995 COLOGUARD (FIT-DNA) COLOGUARD (FIT-D NA) [facility] Start: 1995 Colonoscopy COLONOSCOPY [facility] Start: 1995 COLORECTAL CANCER SCREENING COLORECTAL CANCER SCREENING [facility] Start: [address] COLONOGRAPHY [facility] Start: 1995 DIABETES SCREEN DIABETES SCREEN [facility] Start: 1995 FECAL OCCULT BLOOD FECAL OCCULT BLOO D [facility] Start: 1995 LIPID SCREEN LIPID SCREEN [facility] Start: 1995 SIGMOIDOSCOPY SIGMOIDOSCOPY [facility] Start: 1990 Mammography MAMMOGRAM [facility] Start: 1969 Urine microalbumin profile DTAP,TDAP ,TD (1 - Tdap) [facility] Start: 1968 HEPATITIS C SCREENING HEPATITIS C SC REENING [facility] Immunizations Immunization Date Immunization Notes Care Provider Fa cility 11-04-2022 COVID-19 Pfizer (bivalent) Jordan Castillo Other [facility] Other 04-25-2022 influenza, high dose seasonal, preservative-free Jordan Castillo Other [facility] Other 04-25-2022 COVID-19 Pfizer (bivalent) Jordan Castillo Other [facility] Other 02-15-2022 COVID-19 Pfizer Jordan Jet davida Other [facility] Other 08-13-2020 COVID-19 Vaccine Pfi zer - Documentation Purposes Only Jordan Castillo Other [facility] Other 03-03-2020 influenza virus vaccine, split virus (incl. purified surface antigen) Jordan Castillo Other [facility] Other 04-16-2018 influenza virus vaccine, split virus (incl. purified surface antigen) Jordan Castillo Other [facility] Other 06-22-2015 pneumococcal conjuga te vaccine, 13 valent Jordan Castillo Other [facility] Other 04-10-2015 pneumococcal polysaccharide vaccine, 23 valent Jordan Castillo Other [facility] Other 04-15-2014 tetanus and diphther ia toxoids, adsorbed, preservative free, for adult use (5 Lf of tetanus toxoid and 2 Lf of diphtheria toxoid) Jordan Catsillo Other [facility] Other 10-11-2013 pneumococcal polysaccharide vaccine, 23 valent Jordan Castillo Other [facility] Other Payers Date Payer Category Payer Medicare [id number] 2015 Unknown [id number] 1959 Medicare [id number] 1959 Unknown [id number] 1950 Unknown [id number] 2.16.84 [id number] 1950 Unknown [id number] 2.16.84 [id number] 1950 Unknown [id number] 2.16.84 [id number] 1950 Unknown [id number] 2.16.84 0.1.732071.3.579.2.593 1950 Unknown [id number] 2.16.84 0.1.274087.3.579.2.593 1950 Unknown [id number] 2.16.84 [id number] 1950 Unknown [id number] 2.16.84 0.1.480753.3.579.2.593 1950 Unknown [id number] 2.16.84 0.1.711732.3.579.2.593 1950 Unknown [id number] 2.16.84 [id number] 1950 Unknown [id number] 2.16.84 0.1.548475.3.579.2.593 1950 Unknown [id number] 2.16.84 0.1.472012.3.579.2.593 1950 Unknown [id number] 2.16. [id number] Social History Date Type Detail Facility Start: 09-05-2022 Tobacco smoking status NHIS Ex-smoker [facility] End: 08-22-1979 History of tobacco use Current smoker [facility] End: 08-22-1979 History of tobacco use Cigarette Smoker [facility] Start: 1950 Sex Assigned At Female [facility] Sex Assigned At Sex Assigned At Bir th [facility] Other Clinical Notes 07-19-2022 to 06-19-2023 Note [...] ARB and increase Amlodipine to 5mg bid [facility] Other 11-09-2023 Evaluation note* Encounter Date Diagnosis Assessment Notes Treatment Notes Treatment Clinical Notes May, Primary hypertension (ICD-10 - I10) [facility] Other 11-02-2023 Evaluation note* Encounter Date Diagnosis [...] and applesauce. Stool softener and Miralax optional [facility] Other 09-12-2023 Evaluation note* Encounter Date Diagnosis Assessment Notes Treatment Notes Treatment Clinical Notes Mar, Primary hypertension (ICD-10 - I10) [facility] Other 08-13-2023 Evaluation note* Encounter Date Diagnosis Assessment Notes Treatment Notes Treatment Clinical Notes Feb, Primary hypertension (ICD-10 - I10) [facility] Other 08-03-2023 Evaluation note* Encounter Date Diagnosis Assessment Notes Treatment Notes Treatment Clinical Notes Feb, Primary hypertension (ICD-10 - I10) [facility] Other 05-30-2023 NoteCONSULTATION CONSULTATION DATE: 12/06/2022 TO: [...] our patients to inform us about any kyje-wsl-xzrcdga medications or herbal remedies/nutritional supplements/alternative remedies. 2. [...] treatment options with their primary care provider.[facility] Note CONSULTATION CONSULTATION DATE: 11/03/2022 TO: Jordan [...] our patients to inform us about any szus-rwk-ibfkhen medications or herbal remedies/nutritional supplements/alternative remedies. 2. [...] treatment options with their primary care provider.[id number] Note CONSULTATION CONSULTATION DATE: 10/06/2022 TO: Jordan [...] regimen of Neurontin 300 mg b.i. d.[facility] [id number] Miscellaneous Notes* Telephone Encounter - Debbi Roman RN - 09/09/2022 2:52 PM EST Will forward for review. Scan on 09/08/2022 2:37 PM by External Provider: Spine Injection * Telephone Encounter - Tanya Navarro - 09/09/2022 2:44 PM EST Received spine injection report by fax. Scanned to patient's chart for provider review. [facility] NoteCONSULTATION CONSULTATION DATE: 09/08/2022 HISTORY: This is a very pleasant, 72-year-old female who returns to the clinic, status post lumbar epidural steroid injection completed on 08/02/2022. The patient states she received 25% relief for 2-3 weeks. Patient was seen by Dr. Desai at the [facility]. The patient does have multilevel spinal [...] care will be established at that time.[facility] 09-05-2022 NoteHNO ID: [id number] Author: Jorge Desai MD Service: ? Author [...] 33.64 kg/m? Oriented x3 (more content not included)...[id number] History of Present illness Narrative* Jorge Desai [...] 2022 at 1:23 PM. documented [facility]-2023 NoteCONSULTATION CONSULTATION DATE: 07/19/2022 HISTORY OF PRESENT [...] The patient is hoping to go to [place] in a few weeks. We have also strongly recommended to the patient for a neurosurgical consult, given the multiple levels the patient has pathology. I believe the surgical consult will also help define for the patient progression components. In the interim, the patient will also continue with extension exercises. The patient understands and would like to proceed. CC: Jordan Castillo D.O.[facility] note* Diagnosis Degenerative scoliosis- Primary documented in this encounter [facility] noteNo InformationN[facility] Other History general Narrative - Reported* Type [...] x's 2 Hospitalization History SEE SURGICAL HX [facility] Other Summary Purpose Family History No Family History Records FoundNo Family History Records FoundNo Family History Records FoundNo Family History Records FoundNo Family History Records Found Advance Directives No Advanced Directives Records FoundNo Advanced Directives Records FoundNo Advanced Directives Records FoundNo Advanced Directives Records FoundNo Advanced Directives Records Found Additional Source Comments INFORMATION SOURCE (unrecogn ized section and content) DATE CREATED AUTHOR 08/26/2021 [facility] DATE CREATED AUTHOR AUTHOR'S ORGANIZ ATION 09/06/2022 [facility] DATE CREATED AUTHOR AUTHOR'S ORGANIZ ATION 09/11/2022 [facility] DATE CREATED AUTHOR AUTHOR'S ORGANIZ ATION 12/16/2022 [facility] DATE CREATED AUTHOR AUTHOR'S ORGANIZ ATION 02/28/2023 [facility] Source Comments (unrecognize d section and content) In the event this informatio n is protected by the Federal Confidentiality of Alcohol and Drug Abuse Patient Records regulations: The Federal rules restrict any use of the information to criminally investigate or prosecute any alcohol or drug abuse patient.[facility] Hospital[facility] the event this information is protected by the Federal Confidentiality of Alcohol and Drug Abuse Patient Records regulations: The Federal rules restrict any use of the information to criminally investigate or prosecute any alcohol or drug abuse patient.[facility] Reason for Visit (unrecogniz ed section and [...] BE BASED ON THE PRIMARY CLINICAL RECORDS. [facility] [address] [facility]. provides no warranty or guarantee of the accuracy or completeness of information in this document.
== END 2023-07-31 12:49 | disposition home or self-care (01) ==
LOC: MAMMO 12:48
PROVIDERS: PCP Internal Medicine; Visit Provider Internal Medicine
DX: Z12.31 Encounter for screening mammogram for malignant neoplasm of breast (principal); Z80.3 Family history of malignant neoplasm of breast; Z80.8 Family history of malignant neoplasm of other organs or systems
CPT/HCPCS: 77063; 77067

== ENCOUNTER 2023-10-24 12:51 | Outpatient (OUT) | payer MEDICARE, OTHER, SELFPAY ==
--- NOTE | 2023-10-24 | CONS_ITS ---
CONSULTATION DATE: 10/24/2023 TO: Dr. Castillo HISTORY: Patient returns today complaining of 0-3/10 pain in her lower back and left lower extremity. She reports the pain as being shooting in character with a tingling component, increased with activity such as standing, walking and performing transitioning maneuvers. Patient feels most comfortable in the semi- recumbent position. She denies any change in bowel and bladder habits or sensorimotor changes in the lower extremities. CURRENT MEDICATION: Includes baclofen 20 mg at h.s., gabapentin 300 mg at h.s. We discontinued Zonegran secondary to patient having visual disturbances. Her MARCELO on today?s visit was 24%. EXAMINATION: Notable for patient having a non-focal sensorimotor exam of the lower extremities on today?s visit. DTRs were symmetrical. She had a negative straight leg raise. IMPRESSION: Our impression is patient with chronic pain secondary to spinal stenosis. RECOMMENDATIONS: At this time, I recommend no further intervention, as she is being scheduled for what appears to be lumbar decompressive with stabilization procedure, details of which are unavailable at this time. I have asked her to follow up with our office on an as needed basis. As part of providing excellent, safe, comprehensive care, the following was completed at our patient's visit: 1. A medication reconciliation and review to ensure accurate knowledge of current/active medications, including asking our patients to inform us about any [id number] medications or herbal remedies/nutritional supplements/alternative remedies. 2. A review to specifically ensure our patients have had annual screening for: elevated body mass index (BMI, see intake chart for exact total), tobacco use, screening for depression, and screening for unhealthy alcohol use. When screening is concerning, patients are provided with education and the specific recommendation to discuss the concerning health issue and treatment options with their primary care provider. DESTINEE
== END 2023-10-24 12:52 | disposition home or self-care (01) ==
LOC: PM 12:52
PROVIDERS: PCP Internal Medicine; Visit Provider Anesthesiology Pain Medicine
DX: M54.50 Low back pain, unspecified (principal); M48.062 Spinal stenosis, lumbar region with neurogenic claudication
CPT/HCPCS: G0463

== ENCOUNTER 2024-01-01 10:46 | Outpatient (RCR) | payer MEDICARE, OTHER, SELFPAY | END 2024-01-31 15:53 | disposition home or self-care (01) | LOC: PT 10:46 | PROVIDERS: PCP Internal Medicine | DX: Z98.1 Arthrodesis status (principal); M25.551 Pain in right hip; M25.552 Pain in left hip | CPT/HCPCS: 97110; 97140; 97161 ==

== ENCOUNTER 2024-04-11 08:04 | Outpatient (OUT) | payer MEDICARE, OTHER, SELFPAY ==
--- OUTSIDE RECORDS SUMMARY | 2024-04-11 08:07 | XMS_ITS | CCD ---
Author Organization [facility] Care Team Providers Care Halal Butcher Name Role Phone Unavailable Primary Care Provider Unavailabl e LAKSHMIPATHY ., NARENDRANATH Consulting Demi vailable HALKER ., ELIDIA Attending Unavailable HALKER ., ELIDIA Admitting Unavailable BALL, DR FLEMING Primary Care Unavailable LAKSHMIPATHY ., NARENDRANATH Consulting Demi vailable LAKSHMIPATHY ., NARENDRANATH Attending Demi vailable LAKSHMIPATHY ., RODNEYENDJUAN DAVIDATH Admitting Demi vailable DR JORDAN CASTILLO Primary Care Unavailable LAKSHMIPATHY ., NARENDRANATH Consulting Demi vailable LAKSHMIPATHY ., NARENDRANATH Attending Demi vailable LAKSHMIPATHY ., NARENDRANATH Admitting Demi vailable ADORE, DR FLEMING Primary Care Unavailable LAKSHMIPATHY ., NARENDRANATH Consulting Demi vailable LAKSHMIPATHY ., NARENDRANATH Attending Demi vailable LAKSHMIPATHY ., NARENDRANATH Admitting Demi vailable ADORE, DR FLEMING Primary Care Unavailable LAKSHMIPATHY ., NARENDRANATH Consulting Demi vailable LAKSHMIPATHY ., NARENDRANATH Attending Demi vailable LAKSHMIPATHY ., NARENDRANATH Admitting Demi vailable DR JORDAN CASTILLO Primary Care Unavailable GREWAL . NEHA Consulting Unavailable LAKSHMIPATHY ., NARENDRANATH Admitting Demi vailable LAKSHMIPATHY ., SIMIATH Attending Demi vailable ADORE, DR FLEMING Primary Care Unavailable SAMUEL ., DR ZACARIAS Garner Attending Unavailable SAMUEL ., DR ZACARIAS Garner Admitting Unavailable ADORE, DR FLEMING Primary Care Unavailable SAMUEL ., DR ZACARIAS Garner Consulting Unavailable SAMUEL ., DR ZACARIAS Garner Consulting Unavailable SAMUEL ., DR ZACARIAS Garner Attending Unavailable BALL, DR FLEMING Primary Care Unavailable SAMUEL ., DR ZACARIAS Garner Admitting Unavailable ADORE, DR FLEMING Primary Care Unavailable ADORE, DR FLEMING Consulting Unavailable ADORE, DR FLEMING Attending Unavailable ADORE, DR FLEMING Admitting Unavailable FLAQUITO, DR EMILY Cleary Consulting Unavailable ADORE, DR FLEMING Primary Care Unavailable MONE, DR BONNY Jain Consulting Unavailable APLING, ISABELA Perez Admitting Unavailable APLING, ISABELA Perez Attending Unavailable APLING, ISABELA Perez Consulting Unavailable URI .NEHA Attending Unavailable NEHA MAN Admitting Unavailable ADORE, DR FLEMING Primary Care Unavailable Adore, Jordan Unavailable Hiwot PAYAN, Jessica Tavarez Attending Unavailable JULIANNA HALL Attending Unavailable Unavailable Primary Care Provider UnavailJORGE Tobias Attending Unavailable JORGE DESAI Admitting Unavailable LUCIANO BOSCH Consulting UnavailLITZY Graham Referring Unavailable LITZY TODD Attending Unavailable GEORGETTE CHATTERJEE Referring Unavailable JORGE DESAI Referring Unavailable JORGE DESAI Attending Unavailable LITZY TODD Attending Unavailable SELF Referring Unavailable JORGE DESAI Attending Unavailable Allergies Allergy Classification Reported Allergen(s) Allergy Type Date of Onset Reaction(s) Facility (5 sources) patient allergy list reviewed by nurse or physicia Propensity to adverse reactions Comment:Done [employer] Other (5 sources) Allergies Reconciled Propensity to adverse reactions Unknown [employer] Other Medications Current Medications Medication Drug Class(es) Dates Sig (Normalized) Sig (Original) baclofen 10 mg oral tablet (19 sources) gamma-Aminobutyri c Acid-ergic Agonist Start: 07-12-2023 take 0.5 tablet by mouth once daily, then take 1-2 tablets by mouth once daily at bedtime baclofen 10 mg tablet TAKE 1/2 TAB BY MOUTH EVERY MORNING,1/2 TAB EVERY AFTERNOON,THEN 1 TO 2 TABS EVERY DAY AT BEDTIME 0 07/12/2023 Active take 1 tablet by jason th every twenty-four hours Baclofen 10 MG 1 tablet as needed Orally Once a day Active take 2 tablets by mo uth once daily at bedtime Baclofen 10 MG 2 tablet Orally qhs Active Comment on above: TAKE 1/2 TAB BY MOUT H EVERY MORNING,1/2 TAB EVERY AFTERNOON,THEN 1 TO 2 TABS EVERY DAY AT BEDTIME calcium carbonate 1250 mg / cholecalciferol 100 unt chewable tablet (5 sources) Vitamin D take 1 tablet by mouth every twenty-four hours Calcium 500-2.5 MG-MCG 1 tablet with a meal Orally Once a day Active Calcium Carbonate-Vitamin D2 (1 source) Start: 02-08-20 take 1 tablet by mouth once daily Calcium Carbonate-Vitamin D2 Active TAB PO Daily February 08, 2024 12:00am gabapentin 300 mg oral capsule (20 sources) Anti-epileptic Agent Start: 09-04-19 End: 03-04-20 take 1 capsule by mouth twice daily gabapentin (NEURONTIN) 300 mg capsule Take 1 capsule by mouth two times a day for 90 days. 60 capsule 2 12/05/2023 03/04/2024 Active Start: 09-05-2022 End: 12-04-2022 take 1 capsule by mouth twice daily gabapentin (NEURONTIN) 300 mg capsule Take 1 capsule by mouth twice daily for 90 days. 60 capsule 2 09/05/2022 12/04/2022 Active Comment on above: Take 1 capsule by [facility] twice daily for 90 days. Take 1 capsule by [facility] two times a day for 90 days. ibuprofen 200 mg oral tablet (11 sources) Nonsteroidal Anti-inflammatory Drug Start: 02-08-2024 take 400 mg by mouth once Ibuprofen Active 400 MG PO Once February 08, 2024 12:00am Start: 09-26-2021 take 2 tablets by [facility] once daily at mealtime as needed Ibuprofen 200 MG 2 tablets with food or milk as needed Orally once a day Sep, Active Start: 09-26-2021 Ibuprofen 200M G Ibuprofen( 200MG Oral as needed ) Active -Hx Entry Oral as needed Sep, Active Multi For Her - (5 sources) Multi For Her - as directed Orally Active MULTI-VITAMIN ORAL (11 sources) MULTI-VITAMIN OR AL Take by mouth once daily. 0 Active Comment on above: Take by mouth once d aily. Sobeqvxmviiu-Pi-Zwly-M inerals (1 source) Start: 02-08-2024 Qonajpgsqwlu-Po-Pibf-M inerals Active TAB PO February 08, 2024 12:00am mupirocin 0.02 mg/mg topical ointment (4 sources) RNA Synthetase Inhibitor Antibacterial Start: 12-10-2023 End: 12-14-2023 mupirocin (BACTROBAN) 2 % ointment Apply 1/2 ointment with a cotton swab in each nostril 2x daily for five days preop Patient should start on December 10, 2023. 22 g 0 12/10/2023 12/14/2023 Active Start: 12-10-2023 End: 11-15-2023 mupirocin (BACTROBAN) 2 % oi ntment Apply 1/2 ointment with a cotton swab in each nostril 2x daily for five days preop Patient should start on December 10, 2023. 22 g 0 12/10/2023 11/15/2023 Discontinued (Discontinued by Patient) Start: 12-10-2023 End: 12-14-2023 mupirocin (BACTROBAN) 2 % oi ntment Apply 1/2 ointment with a cotton swab in each nostril 2x daily for five days preop Patient should start on December 10, 2023. 22 g 0 12/10/2023 12/14/2023 Active Comment on above: Apply 1/2 ointment with a cotton swab in each nostril 2x daily for five days preop Patient should start on December 10, 2023. olmesartan medoxomil 20 mg oral tablet (20 sources) Angiotensin 2 Receptor Lea Start: 02-08-2024 End: 02-08-2024 take 20 mg by mouth once daily Olmesartan Active 20 MG PO Daily February 08, 2024 11:13am Start: 03-21-2023 olmesartan (BE NICAR) 20 mg tablet TAKE 1 TABLET BY MOUTH 1 DAILY 0 05/19/2023 Active Comment on above: TAKE 1 TABLET BY JASON TH 1 DAILY paxlovid (300/100) 20 x 150 mg & 10 x 100mg tablet therapy pack (2 sources) Start: 06-20-2023 Paxlovid (300/100) 20 x 150 MG & 10 x 100MG as directed Orally bid for 5 days Jun, Active Completed/Discontinued Medications Medication Drug Class(es) Dates Sig (Normalized) Sig (Original) amLODIPine 5 mg oral tablet (20 sources) Dihydropyridine Calcium Channel Lea Start: 02-08-2024 End: 02-08-2024 take 5 mg by mouth once daily Amlodipine Discontinued 5 MG PO Daily February 08, 2024 11:13am February 08, 2024 11:26am Start: 09-02-2023 take 1 tablet by jason th once daily amLODIPine (NORVASC) 5 mg tablet TAKE 1 TABLET BY MOUTH ONCE EVERYDAY 0 09/02/2023 Active Start: 01-27-2023 take 1 tablet by jason th every twenty-four hours amLODIPine Besylate 5 MG 1 tablet Orally Once a day for 30 days Jan, Active amLODIPine Besyl ate TAKE 1 TABLET BY MOUTH EVERY DAY FOR 30 DAYS Orally Once a day Active amLODIPine Besyl ate TAKE 1 TABLET BY MOUTH EVERY DAY FOR 30 DAYS Orally Once a day for 90 days Active Comment on above: TAKE 1 TABLET BY JASON TH ONCE EVERYDAY cholecalciferol 0.125 mg oral capsule (5 sources) Vitamin D Start: 3 End: 4 take 1 capsule by mouth three times weekly Cholecalciferol, Vitamin D3, 125 mcg (5,000 unit) cap Take 5,000 Units by mouth three times a week. 0 08/28/2022 11/15/2023 Discontinued Comment on above: Take 5,000 Units by mouth three times a week. DAILY-SAÚL, WITH FOLIC ACID, 400 mcg (5 sources) Start: 3 End: 4 take 1 tablet by mouth once daily DAILY-SAÚL, WITH FOLIC ACID, 400 mcg Take 1 tablet by mouth once daily. 0 07/19/2022 11/15/2023 Discontinued Start: 07-19-2022 take 1 tablet by jason th once daily DAILY-SAÚL, WITH FOLIC ACID, 400 mcg Take 1 tablet by mouth once daily. 0 07/19/2022 Active Comment on above: Take 1 tablet by jason th once daily. nitrofurantoin, macrocrystals 25 mg / nitrofurantoin, monohydrate 75 mg oral capsule (5 sources) Nitrofuran Antibacterial Start: 08-14-19 take 1 capsule by mouth every twelve hours Macrobid 100 MG 1 capsule with food Orally every 12 hrs for 7 day(s) Aug, Not-Taking rosuvastatin calcium 5 mg oral tablet (6 sources) HMG-CoA Reductase Inhibitor Start: 09-04-19 End: 11-15-19 24 rosuvastatin (CRESTOR) 5 mg tablet Start: 05-11-2023 take 1 tablet by jason every twenty-four hours Rosuvastatin Calcium 5 MG 1 tablet Orally Once a day for 30 days May, Active VITAMINS B COMPLEX capsule (5 sources) Start: 07-19-2022 End: 11-15-2023 take 1 capsule by mouth once daily VITAMINS B COMPLEX capsule Take 1 capsule by mouth once daily. 0 07/19/2022 11/15/2023 Discontinued Start: 07-19-2022 take 1 capsule by mo uth once daily VITAMINS B COMPLEX capsule Take 1 capsule by mouth once daily. 0 07/19/2022 Active Comment on above: Take 1 capsule by mo uth once daily. zonisamide 100 mg oral capsule (1 source) Anti-epileptic Agent Start: 07-27-2023 End: 11-15-2023 take 2 capsules by mouth once daily at bedtime zonisamide (ZONEGRAN) 100 mg capsule take 2 capsules by mouth every day at bedtime 0 07/27/2023 11/15/2023 Discontinued Problems Active Problems Problem Classification Problem Date Documented Da te Episodic/Chronic Acquired foot deformities (10 sources) Disorder of ankle; Translations: [Valgus deformity, not elsewhere classified, right ankle] Episodic Disorders of lipid metabolism (13 sources) Pure hypercholesterolemia; Translations: [Familial hypercholesterolemia] Chronic E Codes: Adverse effects of medical drugs (1 source) Adverse effect of other antihypertensive drugs, initial encounter Episodic Esophageal disorders (7 sources) Gastro-esophageal reflux disease with esophagitis; Translations: [Gastroesophageal reflux disease with esophagitis without hemorrhage] 02-07-2024 Chronic Essential hypertension (20 sources) Essential hypertension; Translations: [Essential (primary) hypertension] Onset: 4 Chronic Multiple sclerosis (12 sources) Multiple sclerosis; Translations: [Multiple sclerosis] 02-07-2024 Chronic Osteoarthritis (10 sources) Localized, primary osteoarthritis of the shoulder region; Translations: [Primary osteoarthritis, right shoulder] Chronic Other acquired deformities (1 source) Degenerative scoliosis; Translations: [Other secondary scoliosis, site unspecified] Chronic Other connective tissue disease (2 sources) Pain in left leg; Translations: [PAIN IN LEFT LEG] Onset: 3 Episodic Other connective tissue disease (1 source) Pain in right leg Episodic Other connective tissue disease (3 sources) Arthrodesis status; Translations: [S/P lumbar spinal fusion] Onset: 4 Episodic Other connective tissue disease (7 sources) History of lumbar fusion; Translations: [Arthrodesis status] Onset: 4 12-28-2023 Episodic Other female genital disorders (10 sources) Other specified conditions associated with female genital organs and menstrual cycle; Translations: [Oth cond assoc w female genital organs and menstrual cycle] Episodic Other gastrointestinal disorders (1 source) Drug induced constipation Episodic Other gastrointestinal disorders (3 sources) Oropharyngeal dysphagia; Translations: [Dysphagia, oropharyngeal phase] Episodic Other gastrointestinal disorders (1 source) Dysphagia, oropharyngeal phase Episodic Other nervous system disorders (5 sources) Other chronic pain; Translations: [OTHER CHRONIC PAIN] Onset: 3 Chronic Other non-traumatic joint disorders (1 source) Pain in right hip joint; Translations: [Pain in right hip] 11-15-2023 Episodic Other non-traumatic joint disorders (1 source) Pain in right hip; Translations: [Pain in right hip] Onset: 4 Episodic Other nutritional; endocrine; and metabolic disorders (10 sources) Body mass index 30+ - obesity; Translations: [Body mass index (BMI) 33.0-33.9, adult] Chronic Other nutritional; endocrine; and metabolic disorders (10 sources) Obesity caused by energy imbalance; Translations: [Other obesity due to excess calories] Chronic Other nutritional; endocrine; and metabolic disorders (5 sources) Obese class I; Translations: [Obesity, unspecified] Onset: 4 12-16-2023 Chronic Other screening for suspected conditions (not mental disorders or infectious disease) (5 sources) Encounter for screening mammogram for malignant neoplasm of breast; Translations: [Other screening mammogram] Onset: 3 Episodic Residual codes; unclassified (1 source) Pain; Translations: [Pain, unspecified] 11-15-2023 Episodic Residual codes; unclassified (1 source) Pain, unspecified; Translations: [Pain, unspecified] Onset: 4 Episodic Retinal detachments; defects; vascular occlusion; and retinopathy (6 sources) Hypertensive retinopathy; Translations: [Hypertensive retinopathy, bilateral] Chronic Spondylosis; intervertebral disc disorders; other back problems (20 sources) Spondylosis without myelopathy or radiculopathy, lumbosacral region; Translations: [Spondylosis without myelopathy or radiculopathy, lumbar region] Onset: 3 Chronic Unclassified (3 sources) LOW BACK PAIN, UNSPECIFIED; Translations: [LOW BACK PAIN, UNSPECIFIED] Onset: 3 Past or Other Problems Problem Classification Problem Date Documented Da te Episodic/Chronic Benign neoplasm of uterus (10 sources) Uterine leiomyoma; Translations: [Leiomyoma of uterus, unspecified] Resolved: 04-13-2017 Episodic Esophageal disorders (5 sources) Esophageal disorders; Translations: [Gastroesophageal reflux disease with esophagitis without hemorrhage] Residual codes; unclassified (1 source) Family history of malignant neoplasm of breast; Translations: [FAMILY HX MALIG NEOPLASM OF BREAST] Onset: 08-01-2022 Episodic Residual codes; unclassified (1 source) Family history of malignant neoplasm of digestive organs; Translations: [FAM HX MALIG NEOPLASM DIGESTIV ORGN] Onset: 08-01-2022 Episodic Spondylosis; intervertebral disc disorders; other back problems (20 sources) Radiculopathy, lumbar region; Translations: [Spinal stenosis, site unspecified] Onset: 09-08-2022 Episodic Unclassified (1 source) LOW BACK PAIN, UNSPECIFIED; Translations: [LOW BACK PAIN, UNSPECIFIED] Onset: 11-03-2022 Results Test Name Value Interpretation Reference Range Facility [facility] CHRISTIAN [facility] ([id number]) 1950 F Date Time Provider Department 01/23/24 JORGE DESAI During your visit today, we recorded the following information about you: Emily Ellis 01/23/2024 1:47 PM Signed [facility] Progress Note scanned to Epic for review and signature Debbi Roman RN 01/23/2024 2:26 PM Signed Printed for review and signature. Debbi Roman RN 01/24/2024 2:04 PM Signed Signed form faxed to number requested. Faxed verification received. 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 - amLODIPine (NORVASC) 5 mg tablet TAKE 1 TABLET BY MOUTH ONCE EVERYDAY - olmesartan (BENICAR) 20 mg tablet TAKE 1 TABLET BY MOUTH 1 DAILY - baclofen 10 mg tablet TAKE 1/2 TAB BY MOUTH EVERY MORNING,1/2 TAB EVERY AFTERNOON,THEN 1 TO 2 TABS EVERY DAY AT BEDTIME - MULTI-VITAMIN ORAL Take by mouth once daily. Problem List As Of Date 01/23/2024 Noted Resolved Primary hypertension [I10] 11/15/2023 Spinal stenosis, lumbar region with neurogenic *12/15/2023 S/P lumbar spinal fusion [Z98.1] 12/15/2023 Obesity, Class I, BMI 30-34.9 [E66.9] 12/16/2023 Encounter Status:Closed by DEBBI ROMAN on 01/24/24 [facility] XR LUMBAR 2V AP/LATon 2023 XR LUMBAR 2V AP/LAT * * *Final Report* * * DATE OF EXAM: Jan 15 2024 10:43AM LNX 5229 - XR LUMBAR 2V AP/LAT / PROCEDURE REASON: S/P lumbar fusion * * * * Physician Interpretation * * * * HISTORY: S/P lumbar fusion . post op TECHNIQUE: XR LUMBAR 2V AP/LAT Laterality: NOT APPLICABLE Number of different views (projections): 2 COMPARISON: 12/16/2023 RESULT: Counting reference: Lumbosacral junction. For the purposes of this report, L5-S1 is considered the last lumbar type disc space and L4-L5 is considered the level of the iliac crest. Again seen are postoperative changes of left lateral interbody fusion hardware involving L3-L4. Hardware is intact and similar to prior. Mild lumbar levoscoliosis. Mild grade 1 anterolisthesis of L4 on L5 similar to prior. Severe disc space narrowing at L2-L3, L4-L5, L5-S1. Moderate to severe L1-L2 disc space narrowing. Multilevel endplate osteophytes. Scattered facet degeneration severely involving L3-S1. Atherosclerotic calcifications of the abdominal aorta and likely overlying the left upper quadrant. IMPRESSION: Postoperative and degenerative changes, similar to prior. Customer Assistant: [facility] Transcribe Date/Time: Jan 15 2024 12:39P Dictated by : MAYITO RAMIREZ MD This examination was interpreted and the report reviewed and electronically signed by: MAYITO RAMIREZ MD on Jan 15 2024 12:42PM EST [id number] Normal [facility] XR Lumbar spine AP and Later [place] 01-15-2024 IMPRESSION: Postoperative and degenerative changes, similar to prior. Customer Assistant: [facility] Transcribe Date/Time: Jan 15 2024 12:39P Dictated by : MAYITO RAMIREZ MD This examination was interpreted and the report reviewed and electronically signed by: MAYITO RAMIREZ MD on Jan 15 2024 12:42PM EST DIVISION OF RADIOLOGY * * *Final Report* * * DATE OF EXAM: Jan 15 2024 10:43AM LNX 5229 - XR LUMBAR 2V AP/LAT / PROCEDURE REASON: S/P lumbar fusion * * * * Physician Interpretation * * * * HISTORY: S/P lumbar fusion . post op TECHNIQUE: XR LUMBAR 2V AP/LAT Laterality: NOT APPLICABLE Number of different views (projections): 2 COMPARISON: 12/16/2023 RESULT: Counting reference: Lumbosacral junction. For the purposes of this report, L5-S1 is considered the last lumbar type disc space and L4-L5 is considered the level of the iliac crest. Again seen are postoperative changes of left lateral interbody fusion hardware involving L3-L4. Hardware is intact and similar to prior. Mild lumbar levoscoliosis. Mild grade 1 anterolisthesis of L4 on L5 similar to prior. Severe disc space narrowing at L2-L3, L4-L5, L5-S1. Moderate to severe L1-L2 disc space narrowing. Multilevel endplate osteophytes. Scattered facet degeneration severely involving L3-S1. Atherosclerotic calcifications of the abdominal aorta and likely overlying the left upper quadrant. DIVISION OF RADIOLOGY Provider, Jayde Hebert baldwin [place] - 01/15/2024 * * *Final Report* * * DATE OF EXAM: Jan 15 2024 10:43AM LNX 5229 - XR LUMBAR 2V AP/LAT / PROCEDURE REASON: S/P lumbar fusion * * * * Physician Interpretation * * * * HISTORY: S/P lumbar fusion . post op TECHNIQUE: XR LUMBAR 2V AP/LAT Laterality: NOT APPLICABLE Number of different views (projections): 2 COMPARISON: 12/16/2023 RESULT: Counting reference: Lumbosacral junction. For the purposes of this report, L5-S1 is considered the last lumbar type disc space and L4-L5 is considered the level of the iliac crest. Again seen are postoperative changes of left lateral interbody fusion hardware involving L3-L4. Hardware is intact and similar to prior. Mild lumbar levoscoliosis. Mild grade 1 anterolisthesis of L4 on L5 similar to prior. Severe disc space narrowing at L2-L3, L4-L5, L5-S1. Moderate to severe L1-L2 disc space narrowing. Multilevel endplate osteophytes. Scattered facet degeneration severely involving L3-S1. Atherosclerotic calcifications of the abdominal aorta and likely overlying the left upper quadrant. IMPRESSION IMPRESSION: Postoperative and degenerative changes, similar to prior. Customer Assistant: [facility] Transcribe Date/Time: Jan 15 2024 12:39P Dictated by : MAYITO RAMIREZ MD This examination was interpreted and the report reviewed and electronically signed by: MAYITO RAMIREZ MD on Jan 15 2024 12:42PM [facility] Radiology Study observation (narrative) [facility] XR Lumbar spine AP and Later alOrdered By: [facility] Provider on 01-15-2024 [facility] 01-03-2024 [facility] Telephone ([facility]AD[facility]) CHRISTIAN NOYOLA ([id number]) 1950 F Date Time Provider Department 01/03/24 JORGE DESAIFV During your visit today, we recorded the following information about you: Meghan Adm Emily 01/03/2024 1:56 PM Signed [facility] Initial Exam report scanned to [facility] Debbi Roman RN 01/03/2024 4:19 PM Signed Printed for review and signature. Debbi Roman RN 01/05/2024 9:21 AM Signed Signed form faxed to number requested. Faxed verification received. 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 - amLODIPine (NORVASC) 5 mg tablet TAKE 1 TABLET BY MOUTH ONCE EVERYDAY - olmesartan (BENICAR) 20 mg tablet TAKE 1 TABLET BY MOUTH 1 DAILY - baclofen 10 mg tablet TAKE 1/2 TAB BY MOUTH EVERY MORNING,1/2 TAB EVERY AFTERNOON,THEN 1 TO 2 TABS EVERY DAY AT BEDTIME - MULTI-VITAMIN ORAL Take by mouth once daily. Problem List As Of Date 01/03/2024 Noted Resolved Primary hypertension [I10] 11/15/2023 Spinal stenosis, lumbar region with neurogenic *12/15/2023 S/P lumbar spinal fusion [Z98.1] 12/15/2023 Obesity, Class I, BMI 30-34.9 [E66.9] 12/16/2023 Encounter Status:Closed by DEBBI ROMAN on 01/05/24 [facility] Saundra 12-28-2023 CNOV Office Visit (NSFRVW ) CHRISTIAN NOYOLA ([id number]) 1950 F Date Time Provider Department 12/28/23 1:00 PM LITZY TODD NSFRVW During your visit today, we recorded the following information about you: Pulse Blood pressure Weight Height 78/minute 137/64 87.3 kg 1.626 m Litzy Todd, FIELD ENGINEER.PROTECTION CONSULTANT 12/28/2023 11:49 PM Signed SPINE SURGERY FOLLOW UP This is an in-person visit. SERVICE DATE: 12/28/2023 SURGERY DATE: 12/15/23 Christian Noyola is seen for 2 week post operative follow up. She is s/p L3-4 LLIF. Prior to surgery she had complainants of back pain with radiation down the right leg. Today she states that her leg pain has resolved. She endorses some stiffness in her back and sore upper thighs. Denies new paresthesias, weakness, fevers, incisional drainage. PAIN EVALUATION 12/28/2023 1242 Pain Level: 2 Pain Location: Back-Lower Description: Stiffness Frequency: Continuous Patient Entered Questionnaires 08/29/2022 09/03/2023 12/21/2023 Spine Questions Pain Location: Lower back Leg Lower back Pain Duration: 6 months - 1 year 1 to 5 years Pain over last 6 months: At least half the days in the past 6 months Every day or nearly every day in the past 6 months Symptoms from neck/cervical spine: No No Yes Employment Status: Retired Retired Retired Involved in law suit/legal claim: No No 12/21/2023 Neck Questionnaires Benzel Modified KIRILL Score Incomplete PROMIS Score Percentiles 08/29/2022 09/03/2023 12/21/2023 Physical Health Physical Function Percentile 31 21* 18* Sleep Percentile 54 42 50 Fatigue Percentile 79 73 73 Pain Interference Percentile 27* 4 21* 08/29/2022 09/03/2023 12/21/2023 PROMIS SOCIAL ROLE SCORE Social Role Satisfaction Percentile 12 38 38 08/29/2022 09/03/2023 12/21/2023 PROMIS Global Health Scale Physical Health Percentile 41 53 Mental Health Percentile 96 82 82 Percentiles provide an indication of how the patient's score ranks in relation to the general population. Higher percentile rankings indicate better function/quality of life. 50th percentile is the average of the general population and indicates half of respondents had a worse score. Descriptive Summary for PROMIS Physical Function T-score = 41 (Percentile 18) Much difficulty - Do 2 hours of physical labor. Some difficulty - Walk more than a mile (1.6 km). Depression Screenin08/29/2022 09/03/2023 12/21/2023 PHQ-9 Score 0 0 0 08/29/2022 09/03/2023 12/21/2023 PHQ-9 Self-harm Question Question 9 Not at all Not at all Not at all PHQ-9 Self-Harm (Item 9) response options: 0 Not at all 1 Several days 2 More than half the days 3 Nearly every day PHQ-9 Levels: 0-4 No to mild depression 5-9 Mild depression 10-14 Moderate depression 15-19 Moderately severe depression 20-27 Severe depression PHYSICAL EXAM: BP 137/64 Pulse 78 Ht 162.6 cm (5' 4 ) Wt 87.3 kg (192 lb 6.4 oz) SpO2 95% BMI 33.03 kg/m? GENERAL APPEARANCE: Well nourished, well developed, and no apparent distress. NEURO PSYCH: Patient oriented to person, place, and time. Mood pleasant. Benign affect. MUSCULOSKELETAL VISUAL INSPECTION CERVICAL: WNL THORACIC: WNL LUMBAR: WNL MOTOR: 5/5 in all muscle groups. SENSORY: Normal sensory exam GAIT: Normal. WOUND ASSESSMENT: Incision healing, Well approximated incision, Non-reddened DATA REVIEW No additional images reviewed today ASSESSMENT/PLAN (Z98.1) S/P lumbar fusion (primary encounter diagnosis) Christian Noyola will continue with medical management of her condition. Discussed slowly increasing activities, wound care, starting physical therapy. 1. Imaging: Lumbar X-Ray Consults: Physical Therapy 2. Follow up: Four weeks, ok for virtual visit Imaging Ordered: Lumbar Xray for post op eval I spent a total of 14 minutes on the date of the service which included preparing to see the patient, [id number] patient care, completing clinical documentation, obtaining and/or reviewing separately obtained history, performing a medically appropriate examination, counseling and educating the patient/family/caregiv er, and ordering medications, tests, or procedures. SIGNATURE: Litzy Todd APRN.PROTECTION CONSULTANT PATIENT NAME: Christian Noyola DATE: December 28, 2023 TIME: 12:52 PM PAGER: Allergies As of Date: 12/28/2023 (No Known Allergies) Date Reviewed: 12/28/2023 Reviewed by: Gregorio Ellis PCNA - Fully Assessed Reason for Visit: Post Op [174] Primary Visit Diagnosis:S/P lumbar fusion [Z98.1] Order(s):CONSULT TO PHYSICAL THERAPY [9032] Order #: [id number]: 1 FUTURE XR LUMBAR LIMITED 2V AP/LAT [8930903] Order #: [id number] FUTURE Prescriptions as of 12/28/2023 - gabapentin (NEURONTIN) 300 mg capsule Take 1 capsule by mouth two times a day for 90 days. - amLODIPine (NORVASC) 5 mg tablet TAKE 1 TABLET BY MOUTH ONCE EVERYDAY - olmesartan (more content not included)... [facility] 12-18-2023 [facility] Telephone (N[place]) CHRISTIAN NOYOLA ([id number]) 1950 F Date Time Provider Department 12/18/23 JORGE DESAI [facility] During your visit today, we recorded the following information about you: Emily Ellis 12/18/2023 9:29 AM Signed Pt phoned reporting fever with chills on Saturday 12/16 post op. Surgery was Thursday 12/14. Please call and advise Pt phone # [phone] Vinod Morton RN 12/18/2023 11:11 AM Signed Called patient. Patient reported a 101 degree fever with chills, Saturday 12/16. Patient reports that Today she feels better and has no fever. Patient denies any redness, swelling, or drainage with her incision. Patient instructed to call us back with any changes or If her fever/ chills return. Allergies As of Date: 12/18/2023 (No Known Allergies) Date Reviewed: 12/16/2023 Reviewed by: Sylvia iLu APRN.PROTECTION CONSULTANT - Fully Assessed Reason for Visit: Fever [Other] Prescriptions as of 12/18/2023 - oxyCODONE-acetaminophe n (PERCOCET) 5-325 mg tablet Take 1 tablet by mouth every 6 hours as needed for pain for up to 7 days. - gabapentin (NEURONTIN) 300 mg capsule Take 1 capsule by mouth two times a day for 90 days. - amLODIPine (NORVASC) 5 mg tablet TAKE 1 TABLET BY MOUTH ONCE EVERYDAY - olmesartan (BENICAR) 20 mg tablet TAKE 1 TABLET BY MOUTH 1 DAILY - baclofen 10 mg tablet TAKE 1/2 TAB BY MOUTH EVERY MORNING,1/2 TAB EVERY AFTERNOON,THEN 1 TO 2 TABS EVERY DAY AT BEDTIME - MULTI-VITAMIN ORAL Take by mouth once daily. Problem List As Of Date 12/18/2023 Noted Resolved Primary hypertension [I10] 11/15/2023 Spinal stenosis, lumbar region with neurogenic *12/15/2023 S/P lumbar spinal fusion [Z98.1] 12/15/2023 Obesity, Class I, BMI 30-34.9 [E66.9] 12/16/2023 Encounter Status:Closed by VINOD MORTON on 12/18/23 Normal [facility] Basic metabolic 2000 panelon 12-16-2023 Anion gap [Moles/Vol] 12 mmol/L Normal 8-15 [facility] Comment on above: Order Comment: Speci men Type: BLOOD SPECIMENOrdering Facility: [facility] Address: [address] [place] [address] Performed By: #### 2 4321-2 ####[facility] LABORATORYCLIA [id number] [place] [id number] [place] Calcium [Mass/Vol] 9.0 mg/dL Normal 8.5-10.2 [facility] Comment on above: Order Comment: Speci men Type: BLOOD SPECIMENOrdering Facility: [facility] Address: [address] [place] [address] Performed By: #### 2 4321-2 ####[facility] LABORATORYCLIA [id number] [place] [id number] [place] Chloride [Moles/Vol] 105 mmol/L Normal 98-107 [facility] Comment on above: Order Comment: Speci men Type: BLOOD SPECIMENOrdering Facility: [facility] Address: [address] [place] [address] Performed By: #### 2 4321-2 ####[facility] LABORATORYCLIA [id number] [place] [id number] [place] CO2 [Moles/Vol] 24 mmol/L Normal 22-30 [facility] Comment on above: Order Comment: Speci men Type: BLOOD SPECIMENOrdering Facility: [facility] Address: [address] [place] [address] Performed By: #### 2 4321-2 ####[facility] LABORATORYCLIA [id number] [address] Creatinine [Mass/Vol] 0.98 mg/dL High 0.58-0.96 [facility] Comment on above: Order Comment: Speci men Type: BLOOD SPECIMENOrdering Facility: [facility] Address: [address] [place] [address] Performed By: #### 2 4321-2 ####[facility] LABORATORYCLIA [id number] [place] [id number] [facility] Creatinine and Glomerular filtration rate.predicted panel (S/P/Bld) 61 mL/min/1.73m??? Normal >=60 [facility] Comment on above: Order Comment: Speci men Type: BLOOD SPECIMENOrdering Facility: [facility] Address: [address] [place] [address] Result Comment: Annalise mated Glomerular Filtration Rate (eGFR) is calculated using the 2020 CKD-EPI creatinine equation. This equation utilizes serum creatinine, sex, and age as parameters. The creatinine assay has traceable calibration to isotope dilution-mass spectrometry. Refer to KDIGO guidelines for clinical interpretation. In patients with unstable renal function, e.g. those with acute kidney injury, the eGFR may not accurately reflect actual GFR. Performed By: #### 2 4321-2 ####[facility] LABORATORYCLIA [id number] [place] [id number] [place] Glucose [Mass/Vol] 101 mg/dL High 74-99 [facility] Comment on above: Order Comment: Speci men Type: BLOOD SPECIMENOrdering Facility: [facility] Address: [address] [place] [address] Result Comment: The [place] [employer] (ADA) provides guidance for cutoff values for fasting glucose and random glucose. The ADA defines fasting as no caloric intake for at least 8 hours. Fasting plasma glucose results between 100 to 125 mg/dL indicate increased risk for diabetes (prediabetes). Fasting plasma glucose results greater than or equal to 126 mg/dL meet the criteria for diagnosis of diabetes. In the absence of unequivocal hyperglycemia, results should be confirmed by repeat testing. In a patient with classic symptoms of hyperglycemia or hyperglycemic crisis, random plasma glucose results greater than or equal to 200 mg/dL meet the criteria for diagnosis of diabetes. Reference: Standards of Medical Care in Diabetes 2016, [place] [employer]. Diabetes Care. 2016.39(Suppl 1). Performed By: #### 2 4321-2 ####[facility] LABORATORYCLIA [id number] [place] [address] [place] Potassium [Moles/Vol] 4.3 mmol/L Normal 3.7-5.1 [facility] Comment on above: Order Comment: Emersoni men Type: BLOOD SPECIMENOrdering Facility: [facility] Address: [address] [place] [address] Performed By: #### 2 4321-2 ####[facility] LABORATORYCLIA [id number] [place] [id number] [place] Sodium [Moles/Vol] 141 mmol/L Normal 136-144 [facility] Comment on above: Order Comment: Speci men Type: BLOOD SPECIMENOrdering Facility: [facility] Address: [address] [place] [address] Performed By: #### 2 4321-2 ####[facility] LABORATORYCLIA [id number] [place] [address] [place] Urea nitrogen [Mass/Vol] 14 mg/dL Normal 7-21 [facility] Comment on above: Order Comment: Speci men Type: BLOOD SPECIMENOrdering Facility: [facility] Address: [address] [place] [address] Performed By: #### 2 4321-2 ####SYNAGOGUE LABORATORYIA [id number] [place] [id number] [place] CBC panel Auto (Bld)on 12-15 Erythrocyte distribution width (RBC) [Ratio] 12.3 % Normal 11.5-15.0 [facility] Comment on above: Order Comment: Speci men Type: BLOOD SPECIMEN [facility] Address: [address] [place] [address] Performed By: #### 5 8410-2 #### [facility] CLIA [id number] [address] [place] [address] [place] Hematocrit (Bld) [Volume fraction] 37.6 % Normal 36.0-46.0 [facility] Comment on above: Order Comment: Speci men Type: BLOOD SPECIMEN [facility] Address: [address] [place] [address] Performed By: #### 5 8410-2 #### [facility] [place] [id number] [address] [place] [address] [place] Hemoglobin (Bld) [Mass/Vol] 12.7 g/dL Normal 11.5-15.5 [facility] Comment on above: Order Comment: Speci men Type: BLOOD SPECIMEN [facility] Address: [address] [place] [address] Performed By: #### 5 8410-2 #### [facility] CLIA [id number] [address] [place], [place] [address] [place] MCH (RBC) [Entitic mass] 31.0 pg Normal 26.0-34.0 [facility] Comment on above: Order Comment: Speci men Type: BLOOD SPECIMEN [facility] Address: [address] [place] [address] Performed By: #### 5 8410-2 #### [facility] CLIA [id number] [address] [place] [address] [place] MCHC (RBC) [Mass/Vol] 33.8 g/dL Normal 30.5-36.0 [facility] Comment on above: Order Comment: Speci men Type: BLOOD SPECIMEN [facility] Address: [address] [place] [address] Performed By: #### 5 8410-2 #### [facility] CLIA [id number] [address] [place] [address] [place] MCV (RBC) [Entitic vol] 91.7 fL Normal 80.0-100.0 [facility] Comment on above: Order Comment: Speci men Type: BLOOD SPECIMEN [facility] Address: [address] [place] [address] Performed By: #### 5 8410-2 #### [facility] [place] [id number] [address] [place] [address] [place] Nucleated RBC (Bld) [#/Vol] 10*3/uL Normal <0.01 [facility] Comment on above: Order Comment: Speci men Type: BLOOD SPECIMEN [facility] Address: [address] [place] [address] Performed By: #### 5 8410-2 #### [facility] [place] [id number] [address] [place] [address] [place] Platelet mean volume (Bld) [Entitic vol] 10.0 fL Normal 9.0-12.7 [facility] Comment on above: Order Comment: Speci men Type: BLOOD SPECIMEN [facility] Address: [address] [place] [address] Performed By: #### 5 8410-2 #### [facility] CLIA [id number] [address] [place] [address] [place] Platelets (Bld) [#/Vol] 155 10*3/uL Normal 150-400 [facility] Comment on above: Order Comment: Speci men Type: BLOOD SPECIMEN [facility] Address: [address] [place] [address] Performed By: #### 5 8410-2 #### [facility] [place] [id number] [address] [place] [address] [place] RBC (Bld) [#/Vol] 4.10 10*6/uL Normal 3.90-5.20 [facility] Comment on above: Order Comment: Javier men Type: BLOOD SPECIMEN [facility] Address: [address] [place] [address] Performed By: #### 5 8410-2 #### [facility] IA [id number] [address] [place] [address] [place] WBC (Bld) [#/Vol] 6.70 10*3/uL Normal 3.70-11.00 [facility] Comment on above: Order Comment: Javier men Type: BLOOD SPECIMEN [facility] Address: [address] [place] [address] Performed By: #### 5 8410-2 #### [facility] [place] [id number] [address] [place] [address] [place] CNDSon 12-16-2023 CNDS HNO ID: [id number] Author: SYLVIA LIU APRN.PROTECTION CONSULTANT Service: Neurosurgery Author Type: Nurse Practitioner Type: Discharge Summary Filed: 12/16/2023 14:54 Note Text: Attestation signed by Jorge Desai MD at 12/18/2023 7:48 AM Jroge Desai MD DISCHARGE SUMMARY PATIENT NAME: Christian Noyola ADMISSION DATE: 12/15/2023 DISCHARGE DATE: 12/16/2023 Attending Physician: Jorge Desai MD Primary Care Physician: No primary care provider on file. Code Status: Not on file Highest Readmission Risk Score: 8 The 30 day readmissions risk score is derived from an internally validated risk model which evaluates patient level characteristics, utilization history, medication orders and lab results up until the day of discharge. Patients with a score of 40 or above are considered highest risk for readmission. Specific patient level drivers will be listed at the bottom of the summary. Reason for Hospitalization: Elective Surgery Operations During Hospitalization: L3/4 LLIF Procedures During Hospitalization: No procedures performed Hospital Course: 73 year old female with past medical history significant for HTN and L3/4 lumbar stenosis with neurogenic claudication who presented for elective L3/4 LLIF performed on 12/15/[address] Desai. The patient's post operative pain was controlled with prescribed pain medication on discharge. The patient's preoperative symptoms of right buttock pain to right knee/calf area are improved. Diet tolerated, voided independently, and passing flatus with no BM. Recommended OTC colace and miralax if needed for bowel management. No BRET drain post operatively. Left lateral surgical glue intact to surgical site. Post operative XR reviewed per Dr Desai. Evaluated by PT/OT and recommended no home needs. The patient was discharged to home in stable condition. Follow up appointment is scheduled on . Updated and discussed discharge plan of care with Dr. Desai Transitions of Care Critical Issues: LABS AND PROCEDURES PENDING AT DISCHARGE: No pending results. Consulting Teams During Hospitalization: None Treatment Team: Attending Provider: Jorge Desai MD Consulting: Luciano Bosch MD Patient Condition @ Discharge: Stable Discharge Disposition: Home with Self Care PHYSICAL EXAM ON DISCHARGE: Neuro: Alert and oriented X 3 CV: RRR Pulm: (include vent settings) Lungs CTA and RR is easy/even GI/: abdomen soft with BS X 4 quads/diet tolerated/voiding independently Skin/Extremities: Edema- No Peripheral pulses- Present all extremities Wounds/Drsgs- surgical glue intact Information Provided to Patient: My Doctors and Medical Team: My Main Hospital Doctor: Dr. Desai Treatment/Wound Care Keep dressing clean and dry for 4 days, remove dressing on post op day 4, then may shower If you have lisette/sutures, they will be removed at your first post op appointment No soaking/submerging in water for at least 2 weeks , ask your surgeon at your first post op appointment regarding further instructions Monitor incision for signs of infection: increased redness, excessive swelling, persistent drainage, or fevers greater than 101 degrees. Activity No walking restrictions Do not lift more than 10-15 lbs fir the first [address] for the first 2 weeks No twisting/bending for the first 2 weeks No contact sports until cleared by your surgeon Diet Resume your diet as tolerated Drink plenty of fluids to prevent constipation and dehydration Pain Control Take pain medication as prescribed You should be able to decrease the amount of narcotics over the next couple weeks. Minimal amounts of pain medication should be needed by week 3 Common side effects of narcotic pain medications: constipation, nausea, vomiting, itching Take over the counter laxatives/stool softeners to prevent constipation Take all pain medications with food to prevent nausea/GI upset Do not exceed 3,000 mg of Tylenol, from all sources, within a single 24 hour period Please call your surgeon's office 48 hours prior to running out of pain medication if you need a refill Pain medications are helpful around the time of surgery, but they can cause problems if taken for too long. The goal is to try to get you off of the medications by 3-4 weeks or earlier, if possible. Some people may need medications for longer than 3-4 weeks, and that?s ok, but try to wean yourself off of them if you can. The long-term use of such substances as opioids (narcotic analgesics), benzodiazepine tranquilizers, and barbiturate sedatives is controversial because of uncertainty regarding the extent to which they actually improve the lives of those receiving it in terminal computer operator use. Some people receiv (more content not included)... [facility] THERAPY NTon 12-16-2023 THERAPY NT HNO ID: [id number] Author: NICHOLAS CLARKE, PT Service: Physical Therapy Author Type: Physical Therapist Type: Therapy (PT/OT/Speech/Resp) Filed: 12/16/2023 10:04 Note Text: Physical Therapy Evaluation Summary SERVICE DATE: 12/16/2023 SERVICE TIME: 936 to 952 ROOM: [id number] PT 6 Clicks Score: 22 Discharge Readiness: Cleared from Physical Therapy DISCHARGE RECOMMENDATIONS Home Recommended Discharge Disposition Comments: Pt is appropriate for d/c home with assist from family as needed. Recommended Discharge Equipment: No equipment needs anticipated ASSESSMENT Response to Therapy Interventions: Good Participation in Activities, Improved Tolerance for Activity Pt has appropriate gait mechanics with and without use of assistive device. She does not display loss of balance PRECAUTIONS Spine CURRENT HOSPITAL COURSE s/p lateral interbody fusion-Lumbar Relevant Past Medical History: Hypertension, L3-L4 Lumbar Stenosis degenerative scoliosis HOME LIVING Patient Lives With: Self/Alone Assistance Available: PRN, Other: See Comment Comments: Daughters live close by to assist if needed Entry To Home: No Stairs Number Of Stairs To Bed/Bath: 0 Tub/Shower Type: walk in shower Laundry: first floor- Family can assist with laundry Equipment Owned: Shower Chair, Grab Bars- Toilet, Grab Bars- Shower, Hand Held Shower, Walker- Standard, Elevated Toilet Seat, Lift Chair, Juke Box Servicer PRIOR FUNCTIONAL LEVEL Within Functional Limits IND w/ ADL's and IADL's +drives. Ambulated w/o AD + no falls SUBJECTIVE Pt is pleasant and agreeable to PT THERAPY DIAGNOSIS Reduced mobility-other, Decreased activities of daily living (ADL), Muscle Weakness (generalized), Difficulty walking-musculoskeleta l TREATMENT INTERVENTIONS Evaluation, Gait Training (67601) Timed Code Treatment (minutes): 6 Skilled Treatment Time (minutes): 16 TRAINING AND EDUCATION PROVIDED Advanced Balance Activities, Anatomy and Impact on Deficits, Assistive Device Use, Benefits of In-Hospital Mobility, Role of Physical Therapy, Precautions/Restrictio ns THERAPEUTIC SKILLS USED Activity Dosing, Cuing Tactile, Cuing Verbal, Cuing Visual FUNCTIONAL STATUS Bed Mobility Transfers Sit To Stand: Stand By Assistance Stand To Sit: Stand By Assistance Bed to Chair Gait Stand By Assistance, Additional Information initial use of standard walk, progressed to no Assistive device without significant deficit Gait Device: Standard Walker, None General Deviations/Observation s: Komal decreased, Step length decreased, Arm swing decreased Gait Distance (feet): 150 Stairs GOALS Patient will demonstrate understanding of importance of mobility during hospital stay and resolve all functional needs identified., Patient will demonstrate progress with functional mobility to allow safe discharge to home with available support and/or physical assistance., Patient will demonstrate progress to optimize functional mobility, maximize activity tolerance and endurance to maximize function upon discharge. Rehab Potential: Good Progress Toward Goals: Progressing as expected PLAN PT Frequency: Once Daily Treatment Interventions: Education, Self Care / Home Management, Energy Conservation Training, Joint Mobility, Strengthening, Functional Mobility Training, Balance Training Plan for Next Visit: Bed Mobility, Standing Tolerance, Sit to Stand Transfers, Gait Training, Standing Balance SIGNATURE: Nicholas Clarke PT PATIENT NAME: Christian Noyola DATE: December 16, 2023 TIME: 10:03 AM [facility] THERAPY NT HNO ID: [id number] Author: MAGALI TOSCANO, OT/L Service: ? Author Type: Occupational Therapist Type: Therapy (PT/OT/Speech/Resp) Filed: 12/16/2023 09:26 Note Text: Occupational Therapy Treatment Summary SERVICE DATE: 12/16/2023 SERVICE TIME: 0854 to 919 ROOM: [place] [address] OT 6 Clicks Score: 24 DISCHARGE RECOMMENDATIONS Home Recommended Discharge Disposition Comments: Cleared for safe discharge home from OT standpoint Anticipated Discharge Needs: Physical Assist at Home Physical Assist at Home for: Cleaning, Laundry, Shopping, Transportation ASSESSMENT Response to Therapy Interventions: Good Participation in Activities PRECAUTIONS Spine, Lines/Tubes/Drains CURRENT HOSPITAL COURSE s/p lateral interbody fusion-Lumbar Relevant Past Medical History: Hypertension, L3-L4 Lumbar Stenosis degenerative scoliosis HOME LIVING Patient Lives With: Self/Alone Assistance Available: PRN, Other: See Comment Comments: Daughters live close by to assist if needed Entry To Home: No Stairs Number Of Stairs To Bed/Bath: 0 Tub/Shower Type: walk in shower Laundry: first floor- Family can assist with laundry Equipment Owned: Shower Chair, Grab Bars- Toilet, Grab Bars- Shower, Hand Held Shower, Walker- Standard, Elevated Toilet Seat, Lift Chair, Juke Box Servicer (lift bed) PRIOR FUNCTIONAL LEVEL Within Functional Limits IND w/ ADL's and IADL's +drives. Ambulated w/o AD + no falls SUBJECTIVE pt agreeable to therapy and would like to go home today COGNITION THERAPY DIAGNOSIS Reduced mobility-other, Decreased activities of daily living (ADL) TREATMENT INTERVENTIONS Evaluation, Self Assisted Management (20250) Timed Code Treatment (minutes): 11 Skilled Treatment Time (minutes): 26 TRAINING AND EDUCATION PROVIDED Activity Adaptation/Dye Range Tender y Strategies, Adaptive Equipment/DME, Assistive Device Use, Bed Mobility, Discharge Planning, Functional Mobility Involving ADLs, Grooming Tasks, Home Set-up/Modifications, IADLs/Home Management, Lower Extremity Bathing, Lower Extremity Dressing, Positioning, Precautions/Restrictio ns, Role of Occupational Therapy, Transfer - Sit to Stand, Upper Extremity Bathing, Upper Extremity Dressing THERAPEUTIC SKILLS USED Activity Dosing, Cuing Verbal, Cuing Visual FUNCTIONAL STATUS Activities of Daily Living Assist Level Additional Information Feeding Independent Grooming Independent Bathing Upper Body Modified Independent Bathing Lower Body Modified Independent Dressing Upper Body Modified Independent Dressing Lower Body Modified Independent Toileting Independent Mobility Assist Level Additional Information Bed Mobility Sit to Stand Supervision Stand to Sit Supervision Bed to Chair Toilet/Commode Shower Functional Mobility Supervision Functional Mobility Device: Standard Walker GOALS Patient will demonstrate progress with self-care, cognitive and/or coping needs identified to allow safe discharge to home with available support and/or physical assistance. Progress Toward Goals: Progressing as expected Rehab Potential: Good PLAN OT Frequency: Discontinue Therapy Services Reasons Therapy Services Discontinued: Goals met Treatment Interventions: Education, Self Care/Home Management, Functional Mobility Training SIGNATURE: Magali Toscano OT/L PATIENT NAME: Christian Noyola DATE: December 16, 2023 TIME: 9:25 AM [facility] XR LUMBAR 2V AP/LATon 2023 XR LUMBAR 2V AP/LAT * * *Final Report* * * DATE OF EXAM: Dec 16 2023 11:28AM LUX 5229 - XR LUMBAR 2V AP/LAT / PROCEDURE REASON: Postoperative assessment * * * * Physician Interpretation * * * * Lumbar spine History: Postoperative assessment Prior study: None Findings: AP and lateral views were performed. Mild lumbar curvature convex LEFT. Radiopaque spacer at the L3-4 disc space with LEFT lateral fixation screws. Generalized lumbar disc space narrowing. Minimal spondylolisthesis L4-5. Hypertrophic and sclerotic changes mid and lower lumbar facet joints representing degenerative joint disease. Counting reference: Lumbosacral junction. For the purposes of this report, L4-5 is considered the level of the iliac crest and there are 5 lumbar-type vertebrae. Anatomic Variants: None. IMPRESSION: Postoperative and degenerative findings. Customer Assistant: LARA Transcribe Date/Time: Dec 16 2023 11:54A Dictated by : MARISSA GAMEZ MD This examination was interpreted and the report reviewed and electronically signed by: MARISSA GAMEZ MD on Dec 16 2023 11:56AM EST [id number] [facility] ANES POSTPROC EVALon 024 ANES POSTPROC EVAL HNO ID: [id number] Author: SASHA SONG MD Service: Anesthesiology Author Type: Anesthesiologist Type: Anesthesia Postprocedure Evaluation Filed: 12/15/2023 17:42 Note Text: POST ANESTHESIA EVALUATION NOTE : 1950 Procedure Summary Date: 12/15/23 Room / Location: [place] [address] / OR Anesthesia Start: 1118 Anesthesia Stop: 1354 Procedures: LATERAL INTERBODY FUSION (LIF); LUMBAR (Spine Lumbar) INSERTION INTERBODY BIOMED DEVICE(S) W/ANT INSTR ANCHORING TO DISC SPACE W/INTERBODY FUSION,EA INTERSPACE (Spine Lumbar) SPINE ALLOGRAFT (Spine Lumbar) Diagnosis: Spinal stenosis, lumbar region with neurogenic claudication (Spinal stenosis, lumbar region with neurogenic claudication [M48.062]) Surgeons: Jorge Desai MD Responsible Provider: Lu Centeno MD Anesthesia Type: general ASA Status: 3 Anesthesia Type: general Airway Type: ETT Last Vitals Vitals Value Taken Time BP 134/68 12/15/23 1514 Temp 36.4 ?C (97.5 ?F) 12/15/23 1514 HR SpO2 75 12/15/23 1504 Resp 16 12/15/23 1514 SpO2 97 % 12/15/23 1514 Vitals shown include unfiled device data. Post Anesthesia Patient Status Patient Evaluation: bedside. Anticipated Disposition: inpatient floor planned admission. Neurological Status: aware and responsive. Pulmonary Status: breathing comfortably on room air Airway Control: returned to baseline unsupported. Cardiovascular Status: stable. Pain Management: clinically adequate Postoperative Hydration: acceptable. Intraoperative Events: no significant anesthesia events Post Operative Nausea/Vomiting Status: no significant post operative nausea or vomiting Recommendation: continue current plan of care. Anesthesia Observations No Documentation SIGNATURE: Sasha Song MD PATIENT NAME: Christian Noyola DATE: December 15, 2023 TIME: 5:42 PM CSN: [id number] [facility] ANES PRE-OPon 12-15-2023 ANES PRE-OP HNO ID: [id number] Author: LU CENTENO MD Service: Anesthesiology Author Type: Physician Type: Anesthesia Preprocedure Evaluation Filed: 12/15/2023 11:20 Note Text: ANESTHESIOLOGY DAY OF SURGERY NOTE : 1950 Procedure Information Date/Time: 12/15/23 0945 Procedures: LATERAL INTERBODY FUSION (LIF); LUMBAR (Spine Lumbar) INSERTION INTERBODY BIOMED DEVICE(S) W/ANT INSTR ANCHORING TO DISC SPACE W/INTERBODY FUSION,EA INTERSPACE (Spine Lumbar) SPINE ALLOGRAFT (Spine Lumbar) - Lumbar 3-4 Lateral Lumbar Interbody Fusion Location[place] [facility] [facility] [place] Surgeons: Jorge Desai MD Estimated body mass index is 33.07 kg/m? as calculated from the following: Height as of 11/15/23: 162.6 cm (5' 4 ). Weight as of 11/15/23: 87.4 kg (192 lb 10.9 oz). Most recent hematocrit and potassium results: Hematocrit 43.3 11/15/2023 Potassium 5.1 11/15/2023 Relevant Problems CARDIO (+) Primary hypertension HPI: 73 y/o female with a PMH significant for HTN, obesity and lumbar stenosis with disc herniation s/p decompression laminectomy for L2-3 interspace in 2002 and decompression laminectomy for L5-6 in 2010 who is now here for lateral interbody fusion for lumbar stenosis. As per the patient, she has shooting pain down her left leg, which was managed conservatively with radiofrequency ablation X 2 and epidural steroid injections X 3 as well PT without much improvement. I - PHYSICAL EVALUATION AIRWAY Patient intubated: No. Tracheostomy tube not present Mallampati: II. TM distance: >3 FB. Neck ROM: full ROM without neurological symptoms. Mouth opening: adequate. Short neck: no. Thick neck: no DENTAL Dental findings: teeth intact. II - ANESTHESIA PLAN ASA Score: 3 Anesthetic Plan: general Airway type: ETT NPO Status: adequate Beta Lea Monitoring Plan Monitoring plan: standard ASA. Post Procedure Analgesic Plan Postoperative analgesic plan: parenteral or oral opioids. Informed Consent Anesthetic risks, benefits, alternatives, personnel and consent discussed: yes. Patient / Responsible Republican agrees to proceed: yes Patient / Surrogate agrees to blood products: Yes DNR status not reviewed with patient and/or family prior to surgery. Significant changes in the patient condition since the History and Physical, not otherwise documented in primary service progress note: no. Potential Anesthesia issues that may suggest increased risk of complications or contraindication to planned procedure: none. Vitals Value Taken Time BP 141/73 12/15/23751 Pulse 71 12/15/23751 Resp 16 12/15/23751 Temp 36.7 ?C (98.1 ?F) 12/15/23751 SpO2 99 % 12/15/23751 Facility-Administered Medications as of 12/15/2023 Medication Dose Route Frequency - lactated ringers iv infusion 75 mL/hr INTRAVENOUS CONTINUOUS - ceFAZolin iv piggyback 2 g in D5W (iso-osmotic) 100 mL (ANCEF) 2 g INTRAVENOUS ONCE Outpatient Medications as of 12/15/2023 Medication Sig - amLODIPine (NORVASC) 5 mg tablet TAKE 1 TABLET BY MOUTH ONCE EVERYDAY - olmesartan (BENICAR) 20 mg tablet TAKE 1 TABLET BY MOUTH 1 DAILY - baclofen 10 mg tablet TAKE 1/2 TAB BY MOUTH EVERY MORNING,1/2 TAB EVERY AFTERNOON,THEN 1 TO 2 TABS EVERY DAY AT BEDTIME - MULTI-VITAMIN ORAL Take by mouth once daily. I have interviewed and examined the patient. I have reviewed the medical record and/or the pre-anesthesia evaluation, pertinent labs, and test results. This contains updated information obtained within 48 hours of Surgery/Procedure. SIGNATURE: Lu Centeno MD PATIENT NAME: Christian Noyola DATE: December 15, 2023 TIME: 11:16 AM CSN: [id number] [facility] BRIEF OP NOTon 12-15-2023 BRIEF OP NOT HNO ID: [id number] Author: JORGE DESAI MD Service: Neurosurgery Author Type: Physician Type: Brief Op Note Filed: 12/15/2023 18:21 Note Text: BRIEF OPERATIVE / PROCEDURE NOTE LOG ID: [id number] SURGERY/PROCEDURE DATE: 12/15/2023 INCISION/PROCEDURE START TIME: 12:10 PM INCISION CLOSE/PROCEDURE END TIME: 1:35 PM SURGEON(S)/PROCEDURALI ST(S) AND ELECTROTYPE MOLDER(S): Surgeon(s) and Role: * Jorge Desai MD - Primary Physician Processing Technologist: An Bautista PA-C SURGERY/PROCEDURE(S): L3/4 LLIF ANESTHESIA: General FINDINGS: Appropriate decompression and hardware placement ESTIMATED BLOOD LOSS: 25 mls SPECIMENS: None COMPLICATIONS: None CLOSURE TECHNIQUE: Primary PRE-OP/PRE-PROCEDURE DIAGNOSIS: L3/4 lumbar stenosis with neurogenic claudication, degenerative scoliosis POST-OP/POST-PROCEDURE DIAGNOSIS: L3/4 lumbar stenosis with neurogenic claudication, degenerative scoliosis SIGNATURE: Jorge Desai MD PATIENT NAME: Christian Noyola DATE: December 15, 2023 TIME: 1:17 PM [facility] CONSULTon 12-15-2023 CONSULT HNO ID: [id number] Author: LUCIANO BOSCH MD Service: General Internal Medicine Author Type: Physician Type: Consults Filed: 12/15/2023 22:31 Note Text: INTERNAL MEDICINE CONSULT HISTORY AND PHYSICAL PLEASE DO NOT REMOVE FROM THE CHART OR MODIFY PRINTED COPY Patient Name: Christian Noyola PRIMARY CARE PHYSICIAN: No primary care provider on file. CONSULTING PHYSICIAN: Jorge Desai MD MD DATE of CONSULT: 10:29 PM HPI: This is a 73 year old female who presents with LATERAL INTERBODY FUSION (LIF); LUMBAR (Spine Lumbar) INSERTION INTERBODY BIOMED DEVICE(S) W/ANT INSTR ANCHORING TO DISC SPACE W/INTERBODY FUSION,EA INTERSPACE (Spine Lumbar) SPINE ALLOGRAFT (Spine Lumba pt seen denied n/v no fever . Pt no urgency PAST MEDICAL HISTORY: PAST MEDICAL HISTORY Diagnosis Date Hypertension PAST SURGICAL HISTORY: PAST SURGICAL HISTORY Procedure Laterality Date BACK SURGERY HX 01/03/2003 BACK SURGERY HX 04/2011 ENDOSCOPIC PLANTAR FASCIOTOMY 08/2006 HYSTEROSCOPY, DIAGNOSTIC (SEPARATE 03/29/2017 SHOULDER SURGERY HX Left 12/24/2018 SPINE SURGERY HX 12/15/2023 L3/4 LLIF FAMILY HISTORY: No family history on file. SOCIAL HISTORY: Social History Tobacco Use Smoking status: Former Packs/day: 0.50 Years: 15.00 Additional pack years: 0.00 Total pack years: 7.50 Types: Cigarettes Quit date: 08/22/1979 Years since quittin.3 Substance Use Topics Alcohol use: Yes Comment: special occasions Drug use: Never ALLERGIES: ALLERGIES No Known Allergies PRIOR TO ADMISSION MEDICATIONS: gabapentin (NEURONTIN) 300 mg capsule, Take 1 capsule by mouth two times a day for 90 days., Disp: 60 capsule, Rfl: 2, 12/15/2023 at 0530 amLODIPine (NORVASC) 5 mg tablet, TAKE 1 TABLET BY MOUTH ONCE EVERYDAY, Disp: , Rfl: , 12/15/2023 at 0530 olmesartan (BENICAR) 20 mg tablet, TAKE 1 TABLET BY MOUTH 1 DAILY, Disp: , Rfl: , 12/13/2023 baclofen 10 mg tablet, TAKE 1/2 TAB BY MOUTH EVERY MORNING,1/2 TAB EVERY AFTERNOON,THEN 1 TO 2 TABS EVERY DAY AT BEDTIME, Disp: , Rfl: , 12/14/2023 at 1900 MULTI-VITAMIN ORAL, Take by mouth once daily., Disp: , Rfl: , Past Week at 2100 REVIEW OF SYSTEMS: GENERAL: No weight loss, malaise or fevers HEENT: Negative for frequent or significant headaches, No changes in hearing or vision, no nose bleeds or other nasal problems NECK: Negative for lumps, goiter, pain and significant neck swelling RESPIRATORY: Negative for cough, hemoptysis, wheezing, COPD, dyspnea or shortness of breath CARDIOVASCULAR: Negative for chest pain, leg swelling, hypertension, CHF or palpitations GI: No nausea, vomiting, or diarrhea MUSCULOSKELETAL: Negative for joint pain or swelling, back pain or muscle pain SKIN: Negative for lesions, rash, and itching HEMATOLOGY/LYMPHOLOGY: Negative for prolonged bleeding, bruising easily or swollen nodes All other reviewed and negative other than HPI. PHYSICAL EXAM: Blood pressure 150/74, pulse 92, temperature 36.6 ?C (97.9 ?F), temperature source Oral, resp. rate 18, height 162.6 cm (5' 4 ), weight 87.1 kg (192 lb), SpO2 96%. General appearance: well appearing, alert, in no acute distress, and well-hydrated, well nourished Skin: Skin color, texture, turgor normal, no suspicious rashes or lesions Head: normal Eyes: Anicteric sclera. Pupils are equally round and reactive to light. Extraocular movements are intact. Ears: external ears normal, canals clear, TM's normal Nose/Sinuses: Negative Oropharynx: Lips, mucosa, and tongue normal, teeth and gums normal, oropharynx normal Neck: Supple, no adenopathy; thyroid symmetric, normal size, no bruits Back: no pain to palpation over spine or costovertebral angles, reflexes are 2+ and symmetric, motor and sensory appear to be normal Lungs: clear to auscultation no wheezing or rhonchi Heart: RRR without murmur, gallop, or rubs. No ectopy Abdomen: Normal abdominal exam, Abdomen soft, non-tender. Bowel sounds normal. No masses, organomegaly Extremities: Extremities normal. No deformities, edema, or skin discoloration. Good capillary refill. Peripheral pulses: Normal Neuro: Gait normal. Reflexes normal and symmetric. Sensation grossly intact. DATA: Radiology: Imaging reviewed and discussed with the patient. IN-PATIENT MEDICATIONS: Current Facility-Administered Medications Medication Dose Route Frequency gabapentin 300 mg cap(s) (NEURONTIN) 300 mg ORAL BID [START ON 12/16/2023] amLODIPine 5 mg tab(s) (NORVASC) 5 mg ORAL DAILY NaCl 0.9% iv flush bag 20 mL INTRAVENOUS PRN lactated ringers iv infusion 75 mL/hr INTRAVENOUS CONTINUOUS ceFAZolin iv piggyback 2 g in D5W (iso-osmotic) 100 mL (ANCEF) 2 g INTRAVENOUS q 8 HR acetaminophen 325-650 mg tab(s) (TYLENOL) 325-650 mg ORAL q 4 H PRN oxyCODONE-acetaminophe n 5-325 mg 1-2 tablet (PERCOCET) 1-2 tablet ORAL q 6 H PRN morphine 2 mg injection 2 mg INTRAVENOUS q 2 H PRN keTORolac 15 mg injection (Toradol (more content not included)... [facility] OPERATIVE NOon 12-15-2023 OPERATIVE NO HNO ID: [id number] Author: JORGE DESAI MD Service: Neurosurgery Author Type: Physician Type: Operative Report Filed: 12/15/2023 18:44 Note Text: OPERATIVE/PROCEDURE REPORT LOG ID: [id number] SURGERY/PROCEDURE DATE: 12/15/2023 INCISION/PROCEDURE START TIME: 12:10 PM INCISION CLOSE/PROCEDURE END TIME: 1:35 PM SURGEON(S)/PROCEDURALI ST(S) AND ELECTROTYPE MOLDER(S): Surgeon(s) and Role: * Jorge Desai MD - Primary Physician Processing Technologist: An Bautista PA-C SURGERY/PROCEDURE(S): L3/4 LLIF ANESTHESIA: General INDICATION: 73-year-old female presented to the clinic with symptoms of low back and right leg pain in L3 versus L4 distribution. MRI lumbar spine showed severe L3-4 stenosis both foraminal and central and lateral recess is in setting of degenerative scoliosis. Given poor response conservative management decision is made for L3-4 LLIF. SURGERY/PROCEDURE DETAILS: Patient was brought to the operating room. A huddle was performed with anesthesia team and nursing staff and surgical team all agreed to proceed. Patient was positioned in right lateral decubitus position on the Dave table. IV antibiotics were given. The area was prepped and draped in usual fashion. Incision was made over the L3-4 level. Dissection was then made down to the fascia. External bleak, internal bleak, transverse symptoms was then opened. Access to the retroperitoneal space was then achieved. Tissue was was reflected anteriorly. The psoas muscle identified. Psoas muscle dissected. EMG showed no stimulation. L3-4 disc base was then entered. X-ray confirmed the level. Patient was then made for the dissected knee. Using combination of grabber and curette the endplates were placed. Integrated expandable globus cage with screws was then placed with size 55 mm. The cage was expanded under supervision. After cage was placed attention was then made for screws placement. The hole was cannulated. 40 mm screws were then placed at both L3 and L4. Combination of BMP and master graft was placed in the cage to achieve arthrodesis between L3-4. Irrigation and hemostasis was achieved. Incision was closed in 3 layers. 1 Vicryl for fascia, 2-0 Vicryl for subcutaneous layer, 4-0 monocryl for skin. Dressing was applied. Patient was gently emerged from anesthesia and was transferred to PACU in stable condition. PRE-OP/PRE-PROCEDURE DIAGNOSIS: L3/4 lumbar stenosis with neurogenic claudication, degenerative scoliosis POST-OP/POST-PROCEDURE DIAGNOSIS: L3/4 lumbar stenosis with neurogenic claudication, degenerative scoliosis ESTIMATED BLOOD LOSS: 25 mls SPECIMENS: None IMPLANTABLE DEVICES: Implant Name Type Inv. Item Serial No. Soliciting Freight Agent Lot No. LRB No. Used Action SUBSTITUTE MASTERGRAFT CALCIUM PHOSPHATE COLLAGEN BONE GRAFT VOID FILLER - [id number] Cement / Putty SUBSTITUTE MASTERGRAFT CALCIUM PHOSPHATE COLLAGEN BONE GRAFT VOID FILLER [employer]K [id number] N/A 1 Implanted GRAFT INFUSE 14MM SMALL BOVINE COLLAGEN RHBMP-2 23MM BONE ABSORBABLE SPONGE - [id number] Bone GRAFT INFUSE 14MM SMALL BOVINE COLLAGEN RHBMP-2 23MM BONE ABSORBABLE SPONGE [employer] [id number] N/A 1 Implanted KNIFE [place] SURGICAL ANNULOTOMY SPINE Accessories [employer] [id number] N/A 1 Non-Implant FELICIA SPACER 8-15MM 20MM X 55MM 6DEG Implant [employer] N/A 1 Implanted SELF DRILLING SCREW VARIABLE ANGLE 5.5MM 40MM Implant [employer] N/A 2 Implanted DRAINS: None COMPLICATIONS: None CLOSURE TECHNIQUE: Primary PARTICIPATION IN SURGERY/PROCEDURE: Jorge Desai and An Bautista performed the opening, decompression, hardware placement and closure together. SIGNATURE: Jorge Desai MD PATIENT NAME: Christian Noyola DATE: December 15, 2023 TIME: 6:21 PM [facility] XR LUMBAR 2V AP/LATon 2023 XR LUMBAR 2V AP/LAT * * *Final Report* * * DATE OF EXAM: Dec 15 2023 1:19PM JANICE 5229 - XR LUMBAR 2V AP/LAT / PROCEDURE REASON: Spinal stenosis, lumbar region * * * * Physician Interpretation * * * * EXAMINATION: XR LUMBAR 2V AP/LAT CLINICAL INFORMATION: 73 years old Female with Spinal stenosis, lumbar region COMPARISON: Intraoperative lumbar spine radiograph from earlier today Fluoroscopic Radiation Summary: Plane A, Air Kerma: Dose Area Product (DAP): Fluoro time: min:sec RESULT: Frontal and lateral fluoroscopic intraoperative images of the lumbar spine demonstrate interval postsurgical changes of L3-L4 lateral interbody fusion. IMPRESSION: Intraoperative examination for surgical planning and documentation. Customer Assistant: PSCB Transcribe Date/Time: Dec 15 2023 2:50P Dictated by : JEANNE MOELLER DO This examination was interpreted and the report reviewed and electronically signed by: JEANEN MOELLER DO on Dec 15 2023 2:51PM EST [id number] [facility] XR VERIFY LEVEL [id number] 12-15-2023 XR VERIFY LEVEL L-SPINE-NB * * *Final Report* * * DATE OF EXAM: Dec 15 2023 12:33PM JANICE 5642 - XR VERIFY LEVEL L-SPINE-NB / PROCEDURE REASON: Spinal stenosis, lumbar region * * * * Physician Interpretation * * * * EXAMINATION: XR VERIFY LEVEL L-SPINE-NB CLINICAL INFORMATION: 73 years old Female with Spinal stenosis, lumbar region TECHNIQUE: Single lateral fluoroscopic intraoperative image of the lumbar spine timed 12:00. COMPARISON: Outside hospital MRI lumbar spine 01/19/2023 RESULT: Counting reference: Lumbosacral junction. Upper L4 is considered the level of the iliac crest. A single lateral image is obtained intraoperatively for surgical planning. Through a lateral approach, a surgical instrument is present with its tip at the L3-L4 disc space. Surgical retractors are present. Image annotated with vertebral body levels and confirmed with the responsible surgeon at the time of interpretation. IMPRESSION: Intraoperative examination for surgical planning and documentation. COMMUNICATION: Localization level(s) confirmed with: Dr. Jorge Desai on 12/15/2023 12:38 PM via phone and video during the surgical procedure. Customer Assistant: PSCChris Transcribe Date/Time: Dec 15 2023 12:35P Dictated by : JEANNE MOELLER DO This examination was interpreted and the report reviewed and electronically signed by: JEANNE MOELLER DO on Dec 15 2023 12:39PM EST [id number] [facility] Bacteria Ur Culton Bacteria identified Cx Nom (U) CULTURE, URINE: No growth (<1,000 CFU/ml) Normal [facility] Comment on above: Performed By: #### 6 30-4 ####[facility] LABCLIA [id number] [place] [address] [place] CBC W Auto Differential pane l (Bld)on 11-15-2023 Basophils (Bld) [#/Vol] 0.03 10*3/uL [facility] Basophils/100 WBC (Bld) 0.6 % [facility] Differential cell count method Nom (Bld) Auto [facility] Eosinophils (Bld) [#/Vol] 0.10 10*3/uL [facility] Eosinophils/100 WBC (Bld) 2.0 % [facility] Erythrocyte distribution width (RBC) [Ratio] 12.2 % 11.5 - 15.0 % [facility] Hematocrit (Bld) [Volume fraction] 43.3 % 36.0 - 46.0 % [facility] Hemoglobin (Bld) [Mass/Vol] 14.0 g/dL 11.5 - 15.5 g/dL [facility] Immature granulocytes (Bld) [#/Vol] [facility] Immature granulocytes/100 WBC (Bld) 0.2 % [facility] Lymphocytes (Bld) [#/Vol] 1.59 10*3/uL [facility] Lymphocytes/100 WBC (Bld) 32.6 % [facility] MCH (RBC) [Entitic mass] 30.3 pg 26.0 - 34.0 pg [facility] MCHC (RBC) [Mass/Vol] 32.3 g/dL 30.5 - 36.0 g/dL [facility] MCV (RBC) [Entitic vol] 93.7 fL 80.0 - 100.0 fL [facility] Monocytes (Bld) [#/Vol] 0.49 10*3/uL [facility] Monocytes/100 WBC (Bld) 10.0 % [facility] Neutrophils (Bld) [#/Vol] 2.66 10*3/uL [facility] Neutrophils/100 WBC (Bld) 54.6 % [facility] Nucleated RBC (Bld) [#/Vol] [facility] Nucleated RBC/100 WBC (Bld) [Ratio] 0.0 % /100 WBC [facility] Platelet mean volume (Bld) [Entitic vol] 10.2 fL 9.0 - 12.7 fL [facility] Platelets (Bld) [#/Vol] 211 10*3/uL [facility] RBC (Bld) [#/Vol] 4.62 10*6/uL 3.90 - 5.2 0 m/uL [facility] WBC (Bld) [#/Vol] 4.88 10*3/uL [facility] Basophils (Bld) [#/Vol] 0.03 10*3/uL Normal <0.11 [facility] Comment on above: Order Comment: Speci men Type: BLOOD SPECIMENOrdering Facility: [facility] Address: [address] [place] [address] Performed By: #### 5 7021-8 ####[facility] LABCLIA [id number] [place] [address] [place] Basophils/100 WBC (Bld) 0.6 % Normal [facility] Comment on above: Order Comment: Speci men Type: BLOOD SPECIMENOrdering Facility: [facility] Address: [address] [place] [address] Performed By: #### 5 7021-8 ####[facility] LABCLIA [id number] [place] [address] [place] Differential cell count method Nom (Bld) Auto Normal [facility] Comment on above: Order Comment: Speci men Type: BLOOD SPECIMENOrdering Facility: [facility] Address: [address] [place] [address] Performed By: #### 5 7021-8 ####[facility] LABCLIA [id number] [place] [address] [place] Eosinophils (Bld) [#/Vol] 0.10 10*3/uL Normal <0.46 [facility] Comment on above: Order Comment: Speci men Type: BLOOD SPECIMENOrdering Facility: [facility] Address: [address] [place] [address] Performed By: #### 5 7021-8 ####[facility] LABCLIA [id number] [place] [address] [place] Eosinophils/100 WBC (Bld) 2.0 % Normal [facility] Comment on above: Order Comment: Speci men Type: BLOOD SPECIMENOrdering Facility: [facility] Address: [address] [place] [address] Performed By: #### 5 7021-8 ####[facility] LABCLIA [id number] [place] [address] [place] Erythrocyte distribution width (RBC) [Ratio] 12.2 % Normal 11.5-15.0 [facility] Comment on above: Order Comment: Speci men Type: BLOOD SPECIMENOrdering Facility: [facility] [facility] Address: [address] [place] [address] Performed By: #### 5 7021-8 ####[facility] LABCLIA [id number] [place] [address] [place] Hematocrit (Bld) [Volume fraction] 43.3 % Normal 36.0-46.0 [facility] Comment on above: Order Comment: Speci men Type: BLOOD SPECIMENOrdering Facility: [facility] Address: [address] [place] [address] Performed By: #### 5 7021-8 ####[facility] LABCLIA [id number] [place] [address] [place] Hemoglobin (Bld) [Mass/Vol] 14.0 g/dL Normal 11.5-15.5 [facility] Comment on above: Order Comment: Speci men Type: BLOOD SPECIMENOrdering Facility: [facility] Address: [address] [place] [address] Performed By: #### 5 7021-8 ####[facility] LABIA [id number] [place] [address] [place] Immature granulocytes (Bld) [#/Vol] 10*3/uL Normal <0.10 [facility] Comment on above: Order Comment: Speci men Type: BLOOD SPECIMENOrdering Facility: [facility] Address: [address] [place] [address] Performed By: #### 5 7021-8 ####[facility] LABCLIA [id number] [place] [address] [place] Immature granulocytes/100 WBC (Bld) 0.2 % Normal [facility] Comment on above: Order Comment: Speci men Type: BLOOD SPECIMENOrdering Facility: [facility] Address: [address] [place] [address] Performed By: #### 5 7021-8 ####[facility] LABCLIA [id number] [place] [address] [place] Lymphocytes (Bld) [#/Vol] 1.59 10*3/uL Normal 1.00-4.00 [facility] Comment on above: Order Comment: Speci men Type: BLOOD SPECIMENOrdering Facility: [facility] Address: [address] [place] [address] Performed By: #### 5 7021-8 ####[facility] LABCLIA [id number] [place] [address] [place] Lymphocytes/100 WBC (Bld) 32.6 % Normal [facility] Comment on above: Order Comment: Speci men Type: BLOOD SPECIMENOrdering Facility: [facility] Address: [address] [place] [address] Performed By: #### 5 7021-8 ####[facility] LABCLIA [id number] [place] [address] [place] MCH (RBC) [Entitic mass] 30.3 pg Normal 26.0-34.0 [facility] Comment on above: Order Comment: Speci men Type: BLOOD SPECIMENOrdering Facility: [facility] Address: [address] [place] [address] Performed By: #### 5 7021-8 ####[facility] LABCLIA [id number] [place] [address] [place] MCHC (RBC) [Mass/Vol] 32.3 g/dL Normal 30.5-36.0 [facility] Comment on above: Order Comment: Speci men Type: BLOOD SPECIMENOrdering Facility: [facility] Address: [address] [place] [address] Performed By: #### 5 7021-8 ####[facility] LABCLIA [id number] [place] [address] [place] MCV (RBC) [Entitic vol] 93.7 fL Normal 80.0-100.0 [facility] Comment on above: Order Comment: Speci men Type: BLOOD SPECIMENOrdering Facility: [facility] Address: [address] [place] [address] Performed By: #### 5 7021-8 ####[facility] LABCLIA [id number] [place] [address] [place] Monocytes (Bld) [#/Vol] 0.49 10*3/uL Normal <0.87 [facility] Comment on above: Order Comment: Speci men Type: BLOOD SPECIMENOrdering Facility: [facility] Address: [address] [place] [address] Performed By: #### 5 7021-8 ####[facility] LABCLIA [id number] [place] [address] [place] Monocytes/100 WBC (Bld) 10.0 % Normal [facility] Comment on above: Order Comment: Speci men Type: BLOOD SPECIMENOrdering Facility: [facility] Address: [address] [place] [address] Performed By: #### 5 7021-8 ####[facility] LABCLIA [id number] [place] [address] [place] Neutrophils (Bld) [#/Vol] 2.66 10*3/uL Normal 1.45-7.50 [facility] Comment on above: Order Comment: Speci men Type: BLOOD SPECIMENOrdering Facility: [facility] Address: [address] [place] [address] Performed By: #### 5 7021-8 ####[facility] LABCLIA [id number] [place] [address] [place] Neutrophils/100 WBC (Bld) 54.6 % Normal [facility] Comment on above: Order Comment: Speci men Type: BLOOD SPECIMENOrdering Facility: [facility] Address: [address] [place] [address] Performed By: #### 5 7021-8 ####[facility] LABCLIA [id number] [place] [address] [place] Nucleated RBC (Bld) [#/Vol] 10*3/uL Normal <0.01 [facility] Comment on above: Order Comment: Speci men Type: BLOOD SPECIMENOrdering Facility: [facility] Address: [address] [place] [address] Performed By: #### 5 7021-8 ####[facility] LABCLIA [id number] [place] [address] [place] Nucleated RBC/100 WBC (Bld) [Ratio] 0.0 /100 WBC Normal [facility] Comment on above: Order Comment: Speci men Type: BLOOD SPECIMENOrdering Facility: [facility] Address: [address] [place] [address] Performed By: #### 5 7021-8 ####[facility] LABIA [id number] [place] [address] [place] Platelet mean volume (Bld) [Entitic vol] 10.2 fL Normal 9.0-12.7 [facility] Comment on above: Order Comment: Speci men Type: BLOOD SPECIMENOrdering Facility: [facility] Address: [address] [place] [address] Performed By: #### 5 7021-8 ####[facility] LABCLIA [id number] [place] [address] [place] Platelets (Bld) [#/Vol] 211 10*3/uL Normal 150-400 [facility] Comment on above: Order Comment: Speci men Type: BLOOD SPECIMENOrdering Facility: [facility] Address: [address] [place] [address] Performed By: #### 5 7021-8 ####[facility] LABCLIA [id number] [place] [address] [place] RBC (Bld) [#/Vol] 4.62 10*6/uL Normal 3.90-5.20 [facility] Comment on above: Order Comment: Speci men Type: BLOOD SPECIMENOrdering Facility: [facility] Address: [address] [place] [address] Performed By: #### 5 7021-8 ####[facility] LABCLIA [id number] [place] [address] [place] WBC (Bld) [#/Vol] 4.88 10*3/uL Normal 3.70-11.00 [facility] Comment on above: Order Comment: Speci men Type: BLOOD SPECIMENOrdering Facility: [facility] Address: [address] [place] [address] Performed By: #### 5 7021-8 ####[facility] LABCLIA [id number] [place] [address] [place] CONFIRM BLOOD TYPEon 024 ABO O Normal [facility] Comment on above: Order Comment: Speci men Type: BLOOD SPECIMEN [facility] Address: [address] [place] [address] Performed By: #### C ONABO #### [facility] CLIA [id number] [address] [place] [address] [place] Rh Nom (Bld) Positive Normal [facility] Comment on above: Order Comment: Speci men Type: BLOOD SPECIMEN [facility] Address: [address] [place] [address] Performed By: #### C ONABO #### [facility] CLIA [id number] [address] [place] [address] [place] Comprehensive metabolic 2000 panelon 11-15-2023 Albumin [Mass/Vol] 4.3 g/dL Normal 3.9-4.9 [facility] Comment on above: Order Comment: Speci men Type: BLOOD SPECIMEN [facility] Address: [address] [place] [address] Performed By: #### 5 0190-8, 2275-4, 38139-0 #### [facility] CLIA [id number] [address] [place], [place] [id number] [place] ALP [Catalytic activity/Vol] 116 U/L Normal 34-123 [facility] Comment on above: Order Comment: Speci men Type: BLOOD SPECIMEN [facility] Address: [address] [place], [place] [address] Performed By: #### 5 0190-8, 2275-, 33822-6 #### [facility] CLIA [id number] [address] [place] [address] [place] ALT [Catalytic activity/Vol] 45 U/L High 7-38 [facility] Comment on above: Order Comment: Speci men Type: BLOOD SPECIMEN [facility] Address: [address] [place] [address] Performed By: #### 5 0190-8, 2275-10, 69700-2 #### [facility] CLIA [id number] [address] [place] [address] [place] Anion gap [Moles/Vol] 10 mmol/L Normal 9-18 [facility] Comment on above: Order Comment: Speci men Type: BLOOD SPECIMEN [facility] Address: [address] [place], [place] [address] Performed By: #### 5 0190-8, 2275-, 12396-0 #### [facility] CLIA [id number] [address] [place] [address] [place] AST [Catalytic activity/Vol] 50 U/L High 13-35 [facility] Comment on above: Order Comment: Speci men Type: BLOOD SPECIMEN [facility] Address: [address] [place], [place] [address] Performed By: #### 5 0190-8, 2275-4, 12743-7 #### [facility] CLIA [id number] [address] [place] [address] [place] Bilirubin [Mass/Vol] 0.3 mg/dL Normal 0.2-1.3 [facility] Comment on above: Order Comment: Speci men Type: BLOOD SPECIMEN [facility] Address: [address] [place] [address] Performed By: #### 5 0190-8, 2275-10, 36967-0 #### [facility] CLIA [id number] [address] [place] [address] [place] Calcium [Mass/Vol] 9.9 mg/dL Normal 8.5-10.2 [facility] Comment on above: Order Comment: Speci men Type: BLOOD SPECIMEN [facility] Address: [address] [place] [address] Performed By: #### 5 0190-8, 2275-10, #### [facility] CLIA [id number] [address] [place] [address] [place] Chloride [Moles/Vol] 105 mmol/L Normal 97-105 [facility] Comment on above: Order Comment: Speci men Type: BLOOD SPECIMEN [facility] Address: [address] [place] [address] Performed By: #### 5 0190-8, 2275-10, #### [facility] CLIA [id number] [address] [place] [address] [place] CO2 [Moles/Vol] 27 mmol/L Normal 22-30 [facility] Comment on above: Order Comment: Speci men Type: BLOOD SPECIMEN [facility] Address: [address] [place] [address] Performed By: #### 5 0190-8, 2275-10, #### [facility] CLIA [id number] [address] [place] [address] [place] Creatinine [Mass/Vol] 1.08 mg/dL High 0.58-0.96 [facility] Comment on above: Order Comment: Javier salamanca Type: BLOOD SPECIMEN [facility] Address: [address] [place] [address] Performed By: #### 5 0190-8, 2275-10, #### [facility] CLIA [id number] [address] [place] [address] [place] Creatinine and Glomerular filtration rate.predicted panel (S/P/Bld) 54 mL/min/1.73m??? Low >=60 [facility] Comment on above: Order Comment: Javier salamanca Type: BLOOD SPECIMEN [facility] Address: [address] [place] [address] Result Comment: Annalise mated Glomerular Filtration Rate (eGFR) is calculated using the 2020 CKD-EPI creatinine equation. This equation utilizes serum creatinine, sex, and age as parameters. The creatinine assay has traceable calibration to isotope dilution-mass spectrometry. Refer to KDIGO guidelines for clinical interpretation. In patients with unstable renal function, e.g. those with acute kidney injury, the eGFR may not accurately reflect actual GFR. Performed By: #### 5 0190-8, 2275-10, #### [facility] CLIA [id number] [address] [place] [address] [place] Glucose [Mass/Vol] 112 mg/dL High 74-99 [facility] Comment on above: Order Comment: Javier salamanca Type: BLOOD SPECIMEN [facility] Address: [address] [place] [address] Result Comment: The [place] [employer] (ADA) provides guidance for cutoff values for fasting glucose and random glucose. The ADA defines fasting as no caloric intake for at least 8 hours. Fasting plasma glucose results between 100 to 125 mg/dL indicate increased risk for diabetes (prediabetes). Fasting plasma glucose results greater than or equal to 126 mg/dL meet the criteria for diagnosis of diabetes. In the absence of unequivocal hyperglycemia, results should be confirmed by repeat testing. In a patient with classic symptoms of hyperglycemia or hyperglycemic crisis, random plasma glucose results greater than or equal to 200 mg/dL meet the criteria for diagnosis of diabetes. Reference: Standards of Medical Care in Diabetes 2016, [place] [employer]. Diabetes Care. 2016.39(Suppl 1). Performed By: #### 5 0190-8, 2275-10, #### [facility] CLIA [id number] [address] [place] [address] [place] Potassium [Moles/Vol] 5.1 mmol/L Normal 3.7-5.1 [facility] Comment on above: Order Comment: Speci men Type: BLOOD SPECIMEN [facility] Address: [address] [place] [address] Performed By: #### 5 0190-8, 2275-10, #### [facility] CLIA [id number] [address] [place] [address] [place] Protein [Mass/Vol] 7.7 g/dL Normal 6.3-8.0 [facility] Comment on above: Order Comment: Speci men Type: BLOOD SPECIMEN [facility] Address: [address] [place] [address] Performed By: #### 5 0190-8, 2275-10, #### [facility] CLIA [id number] [address] [place] [address] [place] Sodium [Moles/Vol] 142 mmol/L Normal 136-144 [facility] Comment on above: Order Comment: Speci men Type: BLOOD SPECIMEN [facility] Address: [address] [place] [address] Performed By: #### 5 0190-8, 2275-10, #### [facility] CLIA [id number] [address] [place] [address] [place] Urea nitrogen [Mass/Vol] 15 mg/dL Normal 7-21 [facility] Comment on above: Order Comment: Javier salamanca Type: BLOOD SPECIMEN [facility] Address: [address] [place] [address] Performed By: #### 5 0190-8, 2276-4, 78379-0 #### [facility] CLIA [id number] [address] [place] [address] [place] ECG COMPLETEon 11-15-2023 ECG COMPLETE Ventricular Rate : 6 2 BPM Atrial Rate : 62 BPM P-R Interval : 154 ms QRS Duration : 72 ms Q-T Interval : 392 ms QTC Calculation(Bazett) : 397 ms Calculated P [place] : 47 degrees Calculated R [place] : 24 degrees Calculated T [place] : 40 degrees NORMAL SINUS RHYTHM LOW VOLTAGE QRS, CONSIDER PULMONARY DISEASE, PERICARDIAL EFFUSION, OR NORMAL VARIANT BORDERLINE ECG Confirmed by DEBBI MANN MD (65) on 12/01/2023 10:51:09 AM NAME : CHRISTIAN NOYOLA PID : [id number] : 1950 Gender : Female Race : ORD : [id number] Procedure Date : Nov 15 2023 13:16:26 Edit Date : Dec 01 2023 10:51:10 Diagnosis: NORMAL SINUS RHYTHM LOW VOLTAGE QRS, CONSIDER PULMONARY DISEASE, PERICARDIAL EFFUSION, OR NORMAL VARIANT BORDERLINE ECG Confirmed by DEBBI MANN MD (65) on 12/01/2023 10:51:09 AM Test Reason : Location : 145 : [facility] Overread By : DEBBI MANN MD Edited By : DEBBI MANN MD Referred By : JORGE DESAI Acquired by : vs, Normal [facility] Ferritin SerPl-mCncon 2023 Ferritin [Mass/Vol] 431.0 ng/mL High 14.7-205.1 [facility] Comment on above: Order Comment: Javier salamanca Type: BLOOD SPECIMEN [facility] Address: [address] [place] [address] Performed By: #### 5 0190-8, 2276-4, 62165-3 #### [facility] CLIA [id number] [address] [place] [address] [place] HISTORY PHYSICALon HISTORY PHYSICAL HNO ID: [id number] Author: GEORGETTE CHATTERJEE APRN.DONTE Service: ? Author Type: Nurse Practitioner Type: H&P Filed: 11/16/2023 08:39 Note Text: HISTORY AND PHYSICAL EXAMINATION SERVICE DATE: 11/15/2023 SERVICE TIME: 12:05 PM PRIMARY CARE PHYSICIAN: No primary care provider on file. REASON FOR VISIT: Christian Noyola is a 73 year old female who is scheduled for LATERAL INTERBODY FUSION (LIF); LUMBAR INSERTION INTERBODY BIOMED DEVICE(S) W/ANT INSTR ANCHORING TO DISC SPACE W/INTERBODY FUSION,EA INTERSPACE SPINE ALLOGRAFT at the request of Dr. Jorge Desai for consultation. My final recommendation will be communicated back to the requesting physician by way of shared medical record or letter. Assessment Patient has the following medical conditions which may affect thu-operative course: Primary hypertension Assessment: Stable on medication Today 136/7 To take medication morning of surgery Obese Body mass index is 33.07 kg/m?. [place] Activity Status Index: METS: Walk indoors, such as around the house (1.75 METs) Do light work around the house, such as dusting or washing dishes (2.70 METs) Take care of self; that is eating, dressing, bathing, using the toilet (2.75 METs) Walk a block or two on level ground (2.75 METs) Do moderate work around the house, such as vacuuming, sweeping floors, or carrying in groceries (3.50 METs) Do yardwork, such as raking leaves, weeding, or pushing a power mower (4.50 METs) Climb a flight of stairs or walk up a hill (5.50 METs) DASI Score: 23.45 Patient denies any chest pain or undue shortness of breath with the above physical activity. Patient is totally dependent. Clinical Frailty Scale: 3. Well, with treated comorbid disease STOP-Bang Score: Has or is being treated for high blood pressure Patient over 50 years old Has a large neck Denies snoring loudly Denies feeling tired, fatigued, or sleepy during the daytime Has not been observed to stop breathing or choking/gasping during sleep BMI less than or equal to 35 kg/m2 Non-male patient STOP-Bang Score: 3 [id number] Score: Age: 65-74 Sex: female CHF history: No Hypertension history: Yes Stroke/TIA/thromboembo lism history: No Vascular disease history: No Diabetes history: No [id number] Score: 3 ARISCAT Score: Age: 51-80 Preoperative SpO2: >=96% Respiratory infection in the last month: No Preoperative anemia: Yes Surgical incision: peripheral Duration of surgery: >3 hrs Emergency procedure: No ARISCAT Score: 37 ANESTHESIA FINDINGS: Intubation History: No history of difficult intubation. No abnormal airway history Significant Anesthesia Considerations: none Airway History: No history of difficult airway No abnormal airway history I - PHYSICAL EVALUATION AIRWAY Patient intubated: No. Tracheostomy tube not present Mallampati: II. TM distance: >3 FB. Neck ROM: full ROM without neurological symptoms. Mouth opening: adequate. Short neck: no. Thick neck: no [place] present: no Lip Bite Test: II Microretrognathia/Micr onagthia/Recessed Chin: No DENTAL Dental findings: teeth intact. II - ANESTHESIA PLAN Anesthetic plan additional comments: *PACC/TCI - anesthesia choice. Beta Lea Monitoring Plan Post Procedure Analgesic Plan Prepared for surgery: This patient is optimally prepared for surgery CONSULTS: Patient does not require consults for optimization at this time. The Following Tests/Procedures Have Been Initiated: Orders Placed This Encounter Comprehensive Metabolic Panel Standing Status: Future Standing Expiration Date: 02/14/2024 Complete Blood Count and Differential Standing Status: Future Standing Expiration Date: 02/14/2024 Iron and TIBC Standing Status: Future Standing Expiration Date: 02/14/2024 Ferritin Standing Status: Future Standing Expiration Date: 02/14/2024 Urinalysis, reflex Microscopic - LAB COLLECT Standing Status: Future Standing Expiration Date: 02/14/2024 Confirm Blood Type Standing Status: Future Standing Expiration Date: 02/14/2024 Order Specific Question: Did Blood Bank direct you to place this order: Answer: Yes Type and Screen, 30 day Standing Status: Future Standing Expiration Date: 02/14/2024 Urine Culture - LAB COLLECT Standing Status: Future Standing Expiration Date: 02/14/2024 DISCONTD: rosuvastatin (CRESTOR) 5 mg tablet DISCONTD: zonisamide (ZONEGRAN) 100 mg capsule Sig: take 2 capsules by mouth every day at bedtime mupirocin (BACTROBAN) 2 % ointment Sig: Apply 1/2 ointment with a cotton swab in each nostril 2x daily for five days preop Patient should start on December 10, 2023. Dispense: 22 g Refill: 0 ECG (IN OFFICE) Planned Anesthetic: Per anesthesia choice Subjective CHIEF COMPLAINT: Back pain HPI: 73 year old female with back pain Since last visit she started physical therapy and had injections and bilateral RFA. Reports discontinuing ph (more content not included)... Normal [facility] Iron and Iron binding capaci ty panelon 11-15-2023 Iron [Mass/Vol] 71 ug/dL Normal 41-186 [facility] Comment on above: Order Comment: Speci men Type: BLOOD SPECIMEN [facility] Address: [address] [place] [address] Performed By: #### 5 0190-8, 2275-10, 74782-0 #### [facility] CLIA [id number] [address] [place] [address] [place] Iron binding capacity [Mass/Vol] 256 ug/dL Normal 232-386 [facility] Comment on above: Order Comment: Speci jadyn Type: BLOOD SPECIMEN [facility]: [facility] Address: [address] [place] [address] Performed By: #### 5 0190-8, 2275-10, #### [facility] CLIA [id number] [address] [place] [address] [place] Iron/TIBC [Molar ratio] 27.7 % Normal 15.0-57.0 [facility] Comment on above: Order Comment: Speci men Type: BLOOD SPECIMEN [facility] Address: [address] [place] [address] Performed By: #### 5 0190-8, 2275-10, 41383-0 #### [facility] CLIA [id number] [address] [place] [address] [place] TYPE AND SCREEN,30 DAYon ABO O Normal [facility] Comment on above: Order Comment: Speci men Type: BLOOD SPECIMEN [facility] Facility: [facility] Address: [address] [place] [address] Performed By: #### T SCR30 #### [facility] CLIA [id number] [address] [place] [address] [place] HISTORICAL AB SCR STATUS Negative Normal [facility] Comment on above: Order Comment: Speci men Type: BLOOD SPECIMEN [facility] Address: [address] [place] [address] Performed By: #### T SCR30 #### [facility] CLIA [id number] [address] [place] [address] [place] Rh Nom (Bld) Positive Normal [facility] Comment on above: Order Comment: Speci men Type: BLOOD SPECIMEN [facility] Address: [address] [place] [address] Performed By: #### T SCR30 #### [facility] CLIA [id number] [address] [place] [address] [place] URINALYSIS, REFLEX MICROSCOP ICon 11-15-2023 Bilirubin Ql (U) Negative Normal Negative [facility] Comment on above: Order Comment: Speci men Type: URINE SPECIMEN Ordering Facility: [facility] Address: [address] [place] [address] Performed By: #### L [id number] #### [facility] CLIA [id number] [address] [place] [address] [place] Clarity (Unsp spec) Clear Normal Clear [facility] Comment on above: Order Comment: Speci men Type: URINE SPECIMEN Ordering Facility: [facility] Address: [address] [place] [address] Performed By: #### L [id number] #### [facility] CLIA [id number] [address] [id number] [place] Color (U) Yellow Normal Yellow [facility] Comment on above: Order Comment: Speci men Type: URINE SPECIMEN Ordering Facility: [facility] Address: [address] [place], [place] [id number] Performed By: #### L [id number] #### [facility] CLIA [id number] [address] [id number] [place] Glucose Test strip (U) [Mass/Vol] Negative Normal Negative [facility] Comment on above: Order Comment: Speci men Type: URINE SPECIMEN Ordering Facility: [facility] Address: [address] [place] [address] Performed By: #### L [id number] #### [facility] CLIA [id number] [address] [place] [address] [place] Hemoglobin Ql (U) Negative Normal Negative [facility] Comment on above: Order Comment: Speci men Type: URINE SPECIMEN Ordering Facility: [facility] Address: [address] [place] [address] Performed By: #### L [id number] #### [facility] CLIA [id number] [address] [place], [place] [id number] [place] Ketones Ql (U) Negative Normal Negative [facility] Comment on above: Order Comment: Speci men Type: URINE SPECIMEN Ordering Facility: [facility] Address: [address] [phone] Performed By: #### L [id number] #### [facility] CLIA [id number] [address] [place], [place] [id number] [place] Leukocyte esterase Test strip Ql (U) Negative Normal Negative [facility] Comment on above: Order Comment: Speci men Type: URINE SPECIMEN Ordering Facility: [facility] Address: [address] [place], [place] [phone] Performed By: #### L [id number] #### [facility] CLIA [id number] [address] [place] [address] [place] Nitrite Ql (U) Negative Normal Negative [facility] Comment on above: Order Comment: Speci men Type: URINE SPECIMEN Ordering Facility: [facility] Address: [address] [place] [address] Performed By: #### L [id number] #### [facility] CLIA [id number] [address] [place] [address] [place] pH (U) 6.5 [pH] Normal <8.5 [facility] Comment on above: Order Comment: Speci men Type: URINE SPECIMEN Ordering Facility: [facility] Address: [address] [place] [address] Performed By: #### L [id number] #### [facility] CLIA [id number] [address] [place] [address] [place] Protein (U) [Mass/Vol] Negative Normal Negative [facility] Comment on above: Order Comment: Speci men Type: URINE SPECIMEN Ordering Facility: [facility] Address: [address] [place] [address] Performed By: #### L [id number] #### [facility] CLIA [id number] [address] [place] [address] [place] Specific gravity (U) [Rel density] 1.015 Normal 1.005-1.030 [facility] Comment on above: Order Comment: Speci men Type: URINE SPECIMEN Ordering Facility: [facility] Address: [address] [place] [address] Performed By: #### L [id number] #### [facility] CLIA [id number] [address] [place] [address] [place] Urobilinogen Ql (U) 0.2 EU/dL Normal 0.2-1.0 EU/dL [facility] Comment on above: Order Comment: Speci men Type: URINE SPECIMEN Ordering Facility: [facility] Address: [address] [place] [address] Performed By: #### L [id number] #### [facility] CLIA [id number] [address] [place] [address] [id number] [place] CNPMagdalena 09-05-2023 CNPN Telephone (NIQ) CHRISTIAN NOYOLA ([id number]) 1950 F Date Time Provider Department 09/05/23 JORGE DESAI During your visit today, we recorded the following information about you: Tanya Sahni 09/05/2023 9:32 AM Signed Patient called to speak with Dr Desai's nurse. She would like to accept a surgery date of MondayDecember 14. She will wait for it to show up on her MyChart. Debbi Roman RN 09/05/2023 9:49 AM Signed Surgery date moved to 12/15/23. Allergies As of Date: 09/05/2023 (Not on File) Date Reviewed: 09/04/2023 Reviewed by: Gregorio Ellis PCNA - Fully Assessed Reason for Visit: Surgery Date [Other] Prescriptions as of 09/05/2023 - amLODIPine (NORVASC) 5 mg tablet TAKE 1 TABLET BY MOUTH ONCE EVERYDAY - olmesartan (BENICAR) 20 mg tablet TAKE 1 TABLET BY MOUTH 1 DAILY - baclofen 10 mg tablet TAKE 1/2 TAB BY MOUTH EVERY MORNING,1/2 TAB EVERY AFTERNOON,THEN 1 TO 2 TABS EVERY DAY AT BEDTIME - gabapentin (NEURONTIN) 300 mg capsule Take 1 capsule by mouth two times a day for 90 days. - MULTI-VITAMIN ORAL Take by mouth once daily. - VITAMINS B COMPLEX capsule Take 1 capsule by mouth once daily. - DAILY-SAÚL, WITH FOLIC ACID, 400 mcg Take 1 tablet by mouth once daily. - Cholecalciferol, Vitamin D3, 125 mcg (5,000 unit) cap Take 5,000 Units by mouth three times a week. Problem List As Of Date: 09/05/2023 (None) Encounter Status:Closed by DEBBI ROMAN on 09/05/[address] [facility] CNOVon 09-04-2023 CNOV Office Visit (NSFRVW ) CHRISTIAN NOYOLA ([id number]) 1950 F Date Time Provider Department 09/04/23 1:40 PM JORGE DESAI NSFRVW During your visit today, we recorded the following information about you: Pulse Blood pressure Weight Height 70/minute 149/89 87.8 kg 1.626 m Jorge Desai MD 09/04/2023 7:00 PM Signed SPINE SURGERY ESTABLISHED This is an in-person visit. DATE OF SERVICE: 09/04/2023 DATE OF LAST VISIT: 09/05/2022 SUBJECTIVE: HPI:Christian Noyola is a 73 year old female presenting alone. Since last visit she started physical therapy and had injections and bilateral RFA. Reports discontinuing physical therapy due to pain. Left-sided symptoms have resolved and is now experiencing right-sided symptoms since physical therapy, now going below the knee. Cannot walk distances. States she was changed from gabapentin to Zonegran but discontinued due to increased intraocular pressure. Currently taking baclofen. Denies abdominal surgeries. Non-smoker. She has a vacation planned in November. PAIN EVALUATION 09/03/2023 1000 09/04/2023 1315 Pain Level: 5 4 Pain Location: Leg-Right Back Description: Pressure;Radiating;Sor e;Tightness Sore;Radiating;Other: See comment Duration Units: Hours -- Frequency: Intermittent Intermittent Intervention/Comfort measure: Medication;Exercise -- Comments: also pain across my back waistline area constricting Pain Radiation: Back down right posterior leg Pain Ratio: R > L AMBULATORY STATUS: Impaired Community Distances ANTIPLATELET OR ANTICOAGULATION STATUS: No PREVIOUS CONSERVATIVE TREATMENTS: OTC NSAIDS for 3 Months or Greater (Ibuprofen) Physical Therapy Injections RFA REVIEW OF SYSTEMS: GENERAL: No weight loss or malaise MUSCULOSKELETAL: Positive for low back and right leg pain NEURO: No history of headaches, syncope, paralysis, seizures or tremors MEDICATIONS: amLODIPine (NORVASC) 5 mg tablet TAKE 1 TABLET BY MOUTH ONCE EVERYDAY olmesartan (BENICAR) 20 mg tablet TAKE 1 TABLET BY MOUTH 1 DAILY baclofen 10 mg tablet TAKE 1/2 TAB BY MOUTH EVERY MORNING,1/2 TAB EVERY AFTERNOON,THEN 1 TO 2 TABS EVERY DAY AT BEDTIME MULTI-VITAMIN ORAL Take by mouth once daily. VITAMINS B COMPLEX capsule Take 1 capsule by mouth once daily. gabapentin (NEURONTIN) 300 mg capsule Take 1 capsule by mouth two times a day for 90 days. DAILY-SAÚL, WITH FOLIC ACID, 400 mcg Take 1 tablet by mouth once daily. (Patient not taking: Reported on 09/04/2023) Cholecalciferol, Vitamin D3, 125 mcg (5,000 unit) cap Take 5,000 Units by mouth three times a week. (Patient not taking: Reported on 09/04/2023) Patient Entered Questionnaires Spine Questions 08/29/2022 09/03/2023 Pain Location: Lower back Leg Pain Duration: 6 months - 1 year 1 to 5 years Pain over last 6 months: At least half the days in the past 6 months Every day or nearly every day in the past 6 months Symptoms from neck/cervical spine: No No Employment Status: Retired Retired Involved in law suit/legal claim: No No PROMIS Score Percentiles Physical Health 08/29/2022 09/03/2023 Physical Function Percentile 31 21* Sleep Percentile 54 42 Fatigue Percentile 79 73 Pain Interference Percentile 27* 4 PROMIS SOCIAL ROLE SCORE 08/29/2022 09/03/2023 Social Role Satisfaction Percentile 12 38 PROMIS Global Health Scale 08/29/2022 09/03/2023 Physical Health Percentile - 41 Mental Health Percentile 96 82 Percentiles provide an indication of how the patient's score ranks in relation to the general population. Higher percentile rankings indicate better function/quality of life. 50th percentile is the average of the general population and indicates half of respondents had a worse score. Depression Screening: PHQ-9 08/29/2022 09/03/2023 Score 0 0 PHQ-9 Self-harm Question 08/29/2022 09/03/2023 Thoughts that you would be better off , or of hurting yourself in some way 0 0 PHQ-9 Self-Harm (Item 9) response options: 0 Not at all 1 Several days 2 More than half the days 3 Nearly every day PHQ-9 Levels: 0-4 No to mild depression 5-9 Mild depression 10-14 Moderate depression 15-19 Moderately severe depression 20-27 Severe depression OBJECTIVE: PHYSICAL EXAM: BP 149/89 Pulse 70 Ht 5' 4 (1.63m) Wt 193 lb 9.6 oz (87.8kg) SpO2 99% BMI 33.21 kg/(m2). Oriented x3 PERRL FS Motor: UE D 5/5, B 5/5, T 5/5, G 5/5, HI 5/5 LE HF 5/5, KE 5/5, DF 5/5, PF 5/5, EHL 5/5 Gait is normal Hip exam is normal NEURO TESTS: None DATA REVIEW:Diagnostic tests reviewed for today's visit, films/specimens were personally reviewed by me: No additional images reviewed today ASSESSMENT/PLAN (M48.062) Lumbar stenosis with neurogenic claudication (primary encounter diagnosis) Patient was rotational subluxation of L3-4 with L3 radiculopathy Conservative management offering only mild relief It has been (more content not included)... Normal [facility] MG MAMM SCREEN 3D STEFAN CADon 07-27-2022 MG MAMM SCREEN 3D STEFAN CAD Patient: CHRISTIAN NOYOLA Exam Date: 07/27/2022 : 1950 Gender:F Ordering : DR JORDAN CASTILLO DEve Admission #: [id number] Family : Order #: [id number] CLICK HERE TO VIEW EXAM RADIOLOGY REPORT [...] breast cancer at age 47. LOCATION: [facility] BREAST COMPOSITION: Heterogeneously dense,which may obscure small [...] MD on 07/27/2022 at 13:38 Normal [facility] MRI [place] CONon -25-20 22 MRI [facility] WO CON EXAMINATION: MRI [facility] CON HISTORY: Degeneration of lumbar intervertebral disc [...] by: BONNY SHORE Date: 2022-06-03 11:34 Normal [facility] CBC Without Differentialon 0 10-10-2020 Erythrocyte distribution width (RBC) [Ratio] 12.9 % Normal 11.9-15.3 [facility] Comment on above: Performed By: #### C BCNOOUTREACH, OUTREACH LIPID, OUTREACH CMP #### [address] Hematocrit (Bld) [Volume fraction] 42.4 % Normal 34.0-46.4 [facility] Comment on above: Performed By: #### C BCNOOUTREACH, OUTREACH LIPID, OUTREACH CMP #### [facility] [address] [place] [address] Hemoglobin (Bld) [Mass/Vol] 14.9 g/dL Normal 11.8-15.4 [facility] Comment on above: Performed By: #### C BCNOOUTREACH, OUTREACH LIPID, OUTREACH CMP #### [facility] [address] [place] [address] MCH (RBC) [Entitic mass] 31.9 pg Normal 24.7-34.3 [facility] Comment on above: Performed By: #### C BCNOOUTREACH, OUTREACH LIPID, OUTREACH CMP #### [facility] [address] [place] [address] MCV (RBC) [Entitic vol] 90.9 fL Normal 80-100 [facility] Comment on above: Performed By: #### C BCNOOUTREACH, OUTREACH LIPID, OUTREACH CMP #### [facility] [address] [place] [address] Mean Corpuscular HGB Conc 35.1 g/dL High 32.0-35.0 [facility] Comment on above: Performed By: #### C BCNOOUTREACH, OUTREACH LIPID, OUTREACH CMP #### [facility] [address] [place] [address] Platelet mean volume (Bld) [Entitic vol] 8.4 fL Normal 6.3-10.7 [facility] Comment on above: Result Comment: PERF ORMED BY: [place] [address] PATHOLOGIST [employer]Y [employer]EL M.D. Performed By: #### C BCNOOUTREACH, OUTREACH LIPID, OUTREACH CMP #### [address] Platelets (Bld) [#/Vol] 175 10*3/uL Normal 150-450 [facility] Comment on above: Performed By: #### C BCNOOUTREACH, OUTREACH LIPID, OUTREACH CMP #### [address] RBC (Bld) [#/Vol] 4.66 10*6/uL Normal 3.60-5.00 [facility] Comment on above: Performed By: #### C BCNOOUTREACH, OUTREACH LIPID, OUTREACH CMP #### [address] WBC (Bld) [#/Vol] 5.2 10*3/uL Normal 3.8-11.6 [facility] Comment on above: Performed By: #### C BCNOOUTREACH, OUTREACH LIPID, OUTREACH CMP #### [facility] [address] [place] [address] CMP Outreachon 10-10-2020 Albumin [Mass/Vol] 4.0 g/dL Normal 3.2-5.5 [facility] Comment on above: Performed By: #### C BCNOOUTREACH, OUTREACH LIPID, OUTREACH CMP #### [address] ALP [Catalytic activity/Vol] 86 U/L Normal 32-92 [facility] Comment on above: Performed By: #### C BCNOOUTREACH, OUTREACH LIPID, OUTREACH CMP #### [facility] [address] [place] [address] [place] ALT [Catalytic activity/Vol] 38 U/L Normal 10-60 [facility] Comment on above: Performed By: #### C BCNOOUTREACH, OUTREACH LIPID, OUTREACH CMP #### [facility] [address] [place] [address] [place] AST [Catalytic activity/Vol] 31 U/L Normal 10-42 [facility] Comment on above: Performed By: #### C BCNOOUTREACH, OUTREACH LIPID, OUTREACH CMP #### [facility] [address] [place] [address] [place] Bilirubin [Mass/Vol] 0.6 mg/dL Normal 0.3-1.2 [facility] Comment on above: Performed By: #### C BCNOOUTREACH, OUTREACH LIPID, OUTREACH CMP #### [facility] [address] [place] [address] [place] Calcium [Mass/Vol] 9.6 mg/dL Normal 8.2-10.2 [facility] Comment on above: Performed By: #### C BCNOOUTREACH, OUTREACH LIPID, OUTREACH CMP #### [facility] [address] [place] [address] [place] Chloride [Moles/Vol] 105 mmol/L Normal 95-114 [facility] Comment on above: Performed By: #### C BCNOOUTREACH, OUTREACH LIPID, OUTREACH CMP #### [facility] [address] [place] [address] [place] CO2 [Moles/Vol] 26.3 mmol/L Normal 22.0-30.0 [facility] Comment on above: Performed By: #### C BCNOOUTREACH, OUTREACH LIPID, OUTREACH CMP #### [facility] [address] [place] [address] [place] Creatinine [Mass/Vol] 1.03 mg/dL Normal 0.44-1.03 [facility] Comment on above: Performed By: #### C BCNOOUTREACH, OUTREACH LIPID, OUTREACH CMP #### [facility] [address] [place] [address] [place] Estimated GFR ( [place] > 60 Normal [facility] Comment on above: Result Comment: GFR estimated reference range: According to KDOQI guidelines, <60 ml/min/1.73m2 is sufficient to diagnose a patient with chronic kidney disease. Performed By: #### C BCNOOUTREACH, OUTREACH LIPID, OUTREACH CMP #### [facility] [address] [place] [id number] [place] Estimated GFR (Non- Am 53 Normal [facility] Comment on above: Performed By: #### C BCNOOUTREACH, OUTREACH LIPID, OUTREACH CMP #### [facility] [address] [id number] [place] Glucose [Mass/Vol] 94 mg/dL Normal 70-100 [facility] Comment on above: Result Comment: [place] Glucose Reference Range is dependent on time and content of last meal. Glucose of more than 200 mg/dL in a nonstressed, ambulatory subject supports the diagnosis of Diabetes Mellitus. ADA recommended reference range Performed By: #### C BCNOOUTREACH, OUTREACH LIPID, OUTREACH CMP #### [facility] [address] [place] [id number] [place] Potassium [Moles/Vol] 4.4 mmol/L Normal 3.5-5.1 [facility] Comment on above: Performed By: #### C BCNOOUTREACH, OUTREACH LIPID, OUTREACH CMP #### [facility] [address] [place] [id number] [place] Protein [Mass/Vol] 7.0 g/dL Normal 6.1-7.9 [facility] Comment on above: Performed By: #### C BCNOOUTREACH, OUTREACH LIPID, OUTREACH CMP #### [facility] [address] [id number] [place] Sodium [Moles/Vol] 141 mmol/L Normal 136-146 [facility] Comment on above: Performed By: #### C BCNOOUTREACH, OUTREACH LIPID, OUTREACH CMP #### [facility] [address] [id number] [place] Urea nitrogen [Mass/Vol] 12 mg/dL Normal 9-23 [facility] Comment on above: Performed By: #### C BCNOOUTREACH, OUTREACH LIPID, OUTREACH CMP #### [facility] [address] [place] [address] [place] Lipid Profile Outreachon Cholesterol [Mass/Vol] 336 mg/dL High 140-200 [facility] Comment on above: Result Comment: Chol less than 200 mg/dl low risk Chol 201-239 mg/dl borderline risk Chol 240 mg/dl and greater high risk Performed By: #### C BCNOOUTREACH, OUTREACH LIPID, OUTREACH CMP #### [facility] [address] Cholesterol in HDL [Mass/Vol] 48 mg/dL Normal 35-85 [facility] Comment on above: Result Comment: HDL CHOL ATP-III CLASSIFICATION Cardiovascular Risk HDL > or equal to 60 mg/dL LOW HDL < 40 mg/dL HIGH Performed By: #### C BCNOOUTREACH, OUTREACH LIPID, OUTREACH CMP #### [facility] [address] [place] [address] Cholesterol.total/Ch olesterol in HDL [Mass ratio] 7.0 {ratio} Normal <5.0 [facility] Comment on above: Result Comment: PERF ORMED BY: [place] [address] PATHOLOGIST S[employer] RANDY STEEL M.D. Performed By: #### C BCNOOUTREACH, OUTREACH LIPID, OUTREACH CMP #### [facility] [address] [place] [address] LDL Cholesterol,Calculat ed 250 mg/dL High 0-100 [facility] Comment on above: Result Comment: LDL ATP III CLASSIFICATION LDL less than 100 mg/dL Optimal LDL 100-129 mg/dL Near or above optimal LDL 130-159 mg/dL Borderline high LDL 160-189 mg/dL High LDL greater than 189 mg/dL Very high Performed By: #### C BCNOOUTREACH, OUTREACH LIPID, OUTREACH CMP #### [facility] [address] Triglyceride w/Reflex 192 mg/dL High 35-149 [facility] Comment on above: Result Comment: TRIG ATP III CLASSIFICATION TRIG less than 150 mg/dL Normal TRIG 150-199 mg/dL Borderline high TRIG 200-500 mg/dL High TRIG greater than 500 mg/dL Very high Standard traceable to the Center for Disease Conrtrol and Prevention (CDC) test method. Performed By: #### C BCNOOUTREACH, OUTREACH LIPID, OUTREACH CMP #### [facility] [address] [place] [address] [facility] VLDL CHOLESTEROL 38 mg/dL Normal [facility] Comment on above: Performed By: #### C BCNOOUTREACH, OUTREACH LIPID, OUTREACH CMP #### [facility] [address] [place] [address] [facility] Vital Signs Date Time Vital Sign Value Performing Clinician Facility 02-08-2024 11:15-0400 Body height 165.1 cm [facility] 02-08-2024 11:15-0400 Body mass index (BMI) [Ratio] 31.8 kg/m2 [facility] 02-08-2024 11:15-0400 Body weight 86.69 kg [facility] 02-08-2024 11:15-0400 Heart rate 68 /min [facility] 02-08-2024 11:15-0400 Respiratory rate 12 /min [facility] 12-28-2023 12:42-0400 Body height 162.6 cm Litzy Todd APRN.CNP Work Phone: [facility] 12-28-2023 12:42-0400 Body mass index (BMI) [Ratio] 33.03 kg/m2 Litzy Todd FIELD ENGINEER.PROTECTION CONSULTANT Work Phone: [facility] 12-28-2023 12:42-0400 Body weight 87.27 kg Litzy Todd APRN.PROTECTION CONSULTANT Work Phone: [facility] 12-28-2023 12:42-0400 Diastolic blood pressure 64 mm[Hg] Litzy Todd APRN.PROTECTION CONSULTANT Work Phone: [facility] 12-28-2023 12:42-0400 Heart rate 78 /min Litzy Schabel FIELD ENGINEER.PROTECTION CONSULTANT Work Phone: [facility] 12-28-2023 12:42-0400 SaO2% (BldA) [Mass fraction] 95 % Litzy Peyton FIELD ENGINEER.PROTECTION CONSULTANT Work Phone: [facility] 12-28-2023 12:42-0400 Systolic blood pressure 137 mm[Hg] Litzy Todd FIELD ENGINEER.PROTECTION CONSULTANT Work Phone: [facility] 11-15-2023 13:02-0400 Body height 162.6 cm Pacc 2 Work Phone: [facility] 11-15-2023 13:02-0400 Body mass index (BMI) [Ratio] 33.07 kg/m2 Pacc 2 Work Phone: [facility] 11-15-2023 13:02-0400 Body temperature 97.2 [degF] Pacc 2 Work Phone: [facility] 11-15-2023 13:02-0400 Body weight 87.4 kg Pacc 2 Work Phone: [facility] 11-15-2023 13:02-0400 Diastolic blood pressure 76 mm[Hg] Pacc 2 Work Phone: [facility] 11-15-2023 13:02-0400 Heart rate 91 /min Pacc 2 Work Phone: [facility] 11-15-2023 13:02-0400 Respiratory rate 14 /min Pacc 2 Work Phone: [facility] 11-15-2023 13:02-0400 SaO2% (BldA) [Mass fraction] 100 % Pacc 2 Work Phone: [facility] 11-15-2023 13:02-0400 Systolic blood pressure 136 mm[Hg] Pacc 2 Work Phone: [facility] 05-11-2023 11:00-0400 Body height 165.1 cm Jordan Ball Other [employer] Other 05-11-2023 11:00-0400 Body mass index (BMI) [Ratio] 32.41 kg/m2 Jordan Ball Other [employer] Other 05-11-2023 11:00-0400 Body weight 88.36 kg Jordan Ball Other [employer] Other 05-11-2023 11:00-0400 Diastolic blood pressure 80 mm[Hg] Jordan Ball Other [employer] Other 05-11-2023 11:00-0400 Respiratory rate 12 /min Jordan Ball Other [employer] Other 05-11-2023 11:00-0400 Systolic blood pressure 118 mm[Hg] Jordan Ball Other [employer] Other 02-16-2023 13:53-0400 Body height 165.1 cm Jordan Ball Other [employer] Other 02-16-2023 13:53-0400 Diastolic blood pressure 72 mm[Hg] Jordan Ball Other [employer] Other 02-16-2023 13:53-0400 Systolic blood pressure 152 mm[Hg] Jordan Ball Other [employer] Other 09-05-2022 12:34-0500 Body height 162.6 cm Jorge Desai MD Work Phone: [facility] 09-05-2022 12:34-0500 Body temperature 97.59 [degF] Jorge Desai MD Work Phone: [facility] 09-05-2022 12:34-0500 Body weight 88.91 kg Jorge Desai MD Work Phone: [facility] 09-05-2022 12:34-0500 Diastolic blood pressure 87 mm[Hg] Jorge Desai MD Work Phone: [facility] 09-05-2022 12:34-0500 Heart rate 67 /min Jorge Desai MD Work Phone: [facility] 09-05-2022 12:34-0500 Respiratory rate 20 /min Jorge Desai MD Work Phone: [facility] 09-05-2022 12:34-0500 SaO2% (BldA) [Mass fraction] 98 % Jorge Desai MD Work Phone: [facility] 09-05-2022 12:34-0500 Systolic blood pressure 183 mm[Hg] Jorge Desai MD Work Phone: [facility] Encounters Encounter Date Encounter Type Care Provider Facility Start: 02-08-2024 End: 02-08-2024 ambulatory [facility] Work Phone: Start: 02-08-2024 End: 02-08-2024 Patient encounter procedure [facility] Physician [facility] Work Phone: Start: 01-24-2024 End: 01-24-2024 Admission to same day surgery center Jorge Desai MD Work Phone: Neurosurgery Comment on above: Lumbar stenosis with neurogenic claudication (Primary Dx) Start: 01-24-2024 End: 01-24-2024 Telemedicine consultation with patient Jorge Desai MD Work Phone: Neurosurgery Start: 01-24-2024 End: 01-24-2024 ambulatory JORGE DESAI Facility:[facility] Start: 01-23-2024 Telephone encounter Jorge santana MD Work Phone: Neurology Comment on above: 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 Start: 01-15-2024 End: 01-15-2024 ambulatory Melonie Granado RT(R) Radiology Comment on above: Radiology XR Start: 01-15-2024 Patient encounter procedure Melonie Granado RT(R) Radiology Start: 01-15-2024 End: 01-15-2024 Subsequent hospital visit by physician Litzy Todd APRN.PROTECTION CONSULTANT Work Phone: Radiology Comment on above: S/P lumbar fusion [Z 98.1] Start: 12-28-2023 End: 12-28-2023 Patient encounter procedure Litzy Todd APRN.PROTECTION CONSULTANT Work Phone: Neurosurgery Comment on above: S/P lumbar fusion (P rimary Dx) Start: 12-28-2023 End: 12-28-2023 ambulatory LITZY TODD Facility:[facility] Start: 12-15-2023 End: 12-16-2023 Evaluation and management of inpatient JORGE DESAI Facility:[facility] Start: 12-05-2023 End: 12-05-2023 Refill Jorge Desai MD Work Phone: Neurology Start: 11-15-2023 Encounter for other preprocedural examination LITZY TODD [facility] Start: 11-15-2023 End: 11-15-2023 Admission to establishment [facility] [place] [facility] Work Phone: Pre Anesthesia Start: 11-15-2023 End: 11-15-2023 ambulatory GEORGETTE CHATTERJEE Facility:[facility] Start: 11-15-2023 End: 11-15-[address] [facility] [place] [facility] Work Phone: Pre Anesthesia Comment on above: Pre-op evaluation (P rimary Dx); Pre-op testing; Primary hypertension; Pain in right hip; Pain, unspecified Start: 11-15-2023 End: 11-15-2023 Patient encounter status [facility] [place] [facility] Work Phone: [facility] Start: 11-15-2023 End: 11-15-2023 [facility] Work Phone: Start: 11-07-2023 End: 11-07-2023 ambulatory JULIANNA HALL Not Available Start: 09-05-2023 ambulatory Jorge Desai MD Work Phone: Neurosurgery Start: 09-05-2023 Patient encounter status Jorge Desai MD Work Phone: [facility] Start: 09-05-2023 Telephone encounter Jorge santana MD Work Phone: Neurology Comment on above: Surgery Date Start: 09-04-2023 End: 09-04-2023 ambulatory SELF Facility:[facility] Start: 08-01-2023 End: 08-01-2023 ambulatory Jordan Ball Other [employer] Other Start: 08-01-2023 Telephone encounter Jordan Ball [facility] Start: 06-21-2023 End: 06-21-2023 ambulatory Jordan Ball Other [employer] Other Start: 06-21-2023 Telephone encounter Jordan Ball [facility] Start: 06-19-2023 End: 06-19-2023 ambulatory Jordan Ball Other [employer] Other Start: 06-19-2023 Office outpatient vi sit 15 minutes Jordan Ball [facility] Start: 05-18-2023 End: 05-18-2023 ambulatory Jordan Ball Other [employer] Other Start: 05-18-2023 Telephone encounter Jordan Ball [facility] Start: 05-11-2023 End: 05-11-2023 ambulatory Jordan Ball Other [employer] Other Start: 05-11-2023 Office outpatient vi sit 25 minutes Jordan Ball [facility] Start: 03-21-2023 End: 03-21-2023 ambulatory Jordan Ball Other [employer] Other Start: 03-21-2023 Telephone encounter Jordan Ball FP [facility] Start: 02-19-2023 End: 02-19-2023 ambulatory Jordan Ball Other [employer] Other Start: 02-19-2023 Telephone encounter Jordan Castillo FP [facility] Start: 02-16-2023 End: 02-16-2023 ambulatory Jordan Castillo Other [employer] Other Start: 02-16-2023 Telephone encounter Jordan COSTELLO [facility] Start: 02-10-2023 End: 02-10-2023 ambulatory Jordan Castillo Other [employer] Other Start: 02-10-2023 Telephone encounter Jordan COSTELLO [facility] Start: 02-09-2023 End: 02-09-2023 ambulatory Jordan Castillo Other [employer] Other Start: 02-09-2023 Telephone encounter Jordan Castillo FP [facility] Start: 02-06-2023 End: 02-07-2023 ambulatory Jessica Mi MD Facility:[facility] Start: 12-06-2022 End: 12-07-2022 ambulatory NARENDRANATH LAKSHMIPATHY [...] NEHA GREWAL . Facility:[facility] Start: 09-05-2022 End: 02-27-2023 Patient encounter procedure Jorge Desai MD Work Phone: Neurosurgery Comment on above: Degenerative scolios is (Primary Dx) Start: 08-02-2022 End: 08-02-[address] ZACARIAS SAMUEL . Facility:[facility] Start: 07-27-2022 End: 07-28-[address] JORDAN CASTILLO Facility:[facility] Start: 07-19-2022 End: 07-20-[address] ZACARIAS SAMUEL . Facility:[facility] Start: 06-03-2022 End: 06-04-[address] JORDAN CASTILLO Facility:[facility] Procedures Date Procedure Procedure Detail Performing Clinician Start: 01-15-2024 Radex spine lumbosac ral 2/3 views Litzy Todd FIELD ENGINEER.PROTECTION CONSULTANT Work Phone: Start: 11-15-2023 Antibody screen LITZY TODD Comment on above: Order Comment: Speci men Type: BLOOD SPECIMEN Ordering Facility: [facility] Address: [address] [place] [address] Performed By: #### T [id number] #### [facility] [place] [id number] [address] [place] [address] [place] Start: 11-15-2023 Ecg routine ecg w/le ast 12 lds i&r only [facility] Provider Plan of Treatment Date Care Activity Detail Author Start: 12-15-2026 Diabetes Screening Diabetes Screenin g [facility] Start: 11-14-2026 Diabetes Screening Diabetes Screenin g [facility] Start: 02-13-2026 Screening for malign ant neoplasm of colon [facility] Start: 03-10-2024 Influenza vaccination Influenza Vacc ine (#1) [facility] Start: 01-24-2024 End: 01-24-2024 Admission to same day surgery center 01/24/2024 3:20 PM EDT [facility] Neurosurgery [address] [place] [address] [place] [address] [place] [address] VV Post op Neurosurgery Comment on above: VV Post op Start: 12-28-2023 End: 12-28-2023 Patient encounter procedure 12/28/2023 1:00 PM EDT Office Visit Neuro[facility] [address] [facility] [place] [address] Jodi Vega PA-C [address] [facility] [place] [address] post op Neurosurgery Comment on above: post op Start: 12-15-2023 End: 12-15-2023 Admission to same day surgery center 12/15/2023 10:00 AM EDT - 12/15/2023 1:20 PM EDT Surgery [facility] Operating Room [address] [place], [place] [id number] [place] [address] [place] [address] LATERAL INTERBODY FUSION (LIF); LUMBAR [facility] Operating [facility] Comment on above: LATERAL INTERBODY FU MARQUIS (LIF); LUMBAR Start: 12-15-2023 End: 12-15-2023 Allograft for spine surgery only structural SPINE ALLOGRAFT Spinal stenosis, lumbar region with neurogenic claudication 12/15/2023 10:00 AM EDT [facility] Start: 12-15-2023 End: 12-15-2023 Arthrodesis anterior interbody lumbar LATERAL INTERBODY FUSION (LIF); LUMBAR Spinal stenosis, lumbar region with neurogenic claudication 12/15/2023 10:00 AM EDT [facility] Start: 12-15-2023 End: 12-15-2023 Insj biomchn dev intervertebral dsc spc w/arthrd INSERTION INTERBODY BIOMED DEVICE(S) W/ANT INSTR ANCHORING TO DISC SPACE W/INTERBODY FUSION,EA INTERSPACE Spinal stenosis, lumbar region with neurogenic claudication 12/15/2023 10:00 AM EDT [facility] Start: 12-15-2023 Subsequent hospital visit by physician 12/15/2023 10:00 AM EDT Hospital Encounter [facility] Operating Room [address] [address] [place] [address] [place] [address] Spinal stenosis, lumbar region with neurogenic claudication [M48.062] [facility] Operating [facility] Comment on above: Spinal stenosis, lum bar region with neurogenic claudication [M48.062] Start: 12-05-2023 End: 12-05-2023 Patient encounter procedure 12/05/2023 11:45 AM EDT Office [place] [address] [facility] registration [facility] Comment on above: [facility] registration Start: 11-15-2023 End: 02-14-2024 Bacteria identified in Urine by Culture [facility] Comment on above: Expected: 11/15/2023 , Expires: 02/14/2024 Start: 11-15-2023 End: 02-14-2024 Comprehensive metabolic 2000 panel - Serum or Plasma [facility] Work Phone: Comment on above: Expected: 11/15/2023 , Expires: 02/14/2024 Start: 11-15-2023 End: 02-14-2024 CONFIRM BLOOD TYPE [facility] Comment on above: Expected: 11/15/2023 , Expires: 02/14/2024 Start: 11-15-2023 End: 02-14-2024 Ferritin [Mass/volume] in Serum or Plasma [facility] Comment on above: Expected: 11/15/2023 , Expires: 02/14/2024 Start: 11-15-2023 End: 02-14-2024 Iron and Iron binding capacity panel - Serum or Plasma [facility] Comment on above: Expected: 11/15/2023 , Expires: 02/14/2024 Start: 11-15-2023 End: 02-14-2024 TYPE AND SCREEN,30 DAY [facility] Comment on above: Expected: 11/15/2023 , Expires: 02/14/2024 Start: 11-15-2023 End: 02-14-2024 URINALYSIS, REFLEX MICROSCOPIC [facility] Comment on above: Expected: 11/15/2023 , Expires: 02/14/2024 Start: 08-04-2023 Covid-19 Vaccine () Covid-19 Vaccine () [facility] Start: 08-01-2023 Shingrix Vaccine (2 of 2) Shingrix Vaccine (2 of 2) [facility] Start: 07-10-2023 Advance Directive Discussion Advance Directive Discussion [facility] Start: 07-10-2023 Behavioral Health Screening Behavioral Health Screening [facility] Start: 07-10-2023 Depression Assessment Depression Ass essment [facility] Start: 07-10-2022 ADVANCE DIRECTIVE DISCUSSION ADVANCE DIRECTIVE DISCUSSION [facility] Start: 07-10-2022 DEPRESSION ASSESSMENT DEPRESSION ASS ESSMENT [facility] Start: 06-22-2020 Pneumococcal Vaccine : 65+ (3 of 3 - PPSV23 or PCV20) Pneumococcal Vaccine: 65+ (3 of 3 - PPSV23 or PCV20) [facility] Start: 04-10-2016 Pneumococcal Vaccine : 65+ (2 of 2 - PCV) Pneumococcal Vaccine: 65+ (2 of 2 - PCV) [facility] Start: 2015 BONE DENSITY BONE DENSITY [facility] Start: 2015 PNEUMOCOCCAL: 65+ (1 - PCV) PNEUMOCOCCAL: 65+ (1 - PCV) [facility] Start: 2015 Screening for osteoporosis Bone Density Screening [facility] Start: 04-16-2014 Urine microalbumin profile DTaP,Tdap,Td Vaccine (1 - Tdap) [facility] Start: 2010 RSV Vaccine (1 - 1-d ose 60+ series) RSV Vaccine (1 - 1-dose 60+ series) [facility] Start: 2000 SHINGRIX VACCINE (1 of 2) SHINGRIX VACCINE (1 of 2) [facility] Start: 1995 COLOGUARD (FIT-DNA) COLOGUARD (FIT-D NA) [facility] Start: 1995 Colonoscopy COLONOSCOPY [facility] Start: 1995 COLORECTAL CANCER SCREENING COLORECTAL CANCER SCREENING [facility] Start: [address] COLONOGRAPHY [facility] Start: 1995 DIABETES SCREEN DIABETES SCREEN [facility] Start: 1995 Diabetes Screening Diabetes Screenin g [facility] Start: 1995 FECAL OCCULT BLOOD FECAL OCCULT BLOO D [facility] Start: 1995 Lipid panel Lipid Screening [facility] Start: 1995 LIPID SCREEN LIPID SCREEN [facility] Start: 1995 Screening for malign ant neoplasm of colon [facility] Start: 1995 SIGMOIDOSCOPY SIGMOIDOSCOPY [facility] Start: 1990 Mammography MAMMOGRAM [facility] Start: 1990 Screening for malign ant neoplasm of breast Mammogram Screening [facility] Start: 1969 Urine microalbumin profile [facility] Start: 1968 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 Disease Visit Annual PCP Team Chronic Disease Visit [facility] Start: 1968 BP Controlled (<130/80) BP Controlle d (<130/80) [facility] Start: 1968 HEPATITIS C SCREENING HEPATITIS C [facility] Start: 1968 Hepatitis C screening Hepatitis C [facility] ECG COMPLETE [facility] Comment on above: Ordered: 11/15/2023 End: 01-26-2025 XR Lumbar spine AP and Lateral XR LUMBAR LIMITED 2V AP/LAT Radiology Routine S/P lumbar fusion 1 Occurrences starting 12/28/2023 until 01/26/2025 [facility] Work Phone: Comment on above: 1 Occurrences starti ng 12/28/2023 until 01/26/2025 [facility] Immunizations Immunization Date Immunization Notes Care Provider Quin gilmore 04-04-2023 influenza virus vaccine, unspecified formulation Melonie Granado RT(R) [facility] 11-04-2022 COVID-19 Pfizer (bivalent) Jordan Castillo Other [facility] 04-25-2022 influenza, high dose seasonal, preservative-free Jordan Castillo Other [employer] Other 04-25-2022 COVID-19 Pfizer (bivalent) Jordan Castillo Other [facility] 04-25-2022 influenza virus vaccine, unspecified formulation [facility] 02-15-2022 COVID-19 Pfizer Jordan higuera Other [facility] 08-13-2020 COVID-19 Vaccine Pfi zer - Documentation Purposes Only Jordan Castillo Other [facility] 03-03-2020 influenza virus vaccine, split virus (incl. purified surface antigen) Jordan Castillo Other [employer] Other 03-03-2020 influenza virus vaccine, unspecified formulation [facility] 04-16-2018 influenza virus vaccine, split virus (incl. purified surface antigen) Jordan Castillo Other [employer] Other 04-16-2018 influenza virus vaccine, unspecified formulation [facility] 06-22-2015 pneumococcal conjuga te vaccine, 13 valent Jordan Castillo Other [facility] 04-10-2015 pneumococcal polysaccharide vaccine, 23 valent Jordan Castillo Other [facility] 04-15-2014 tetanus and diphther ia toxoids, adsorbed, preservative free, for adult use (5 Lf of tetanus toxoid and 2 Lf of diphtheria toxoid) Jordan Castillo Other [facility] 10-11-2013 pneumococcal polysaccharide vaccine, 23 valent Jordan Castillo Other [facility] Payers Date Payer Category Payer Medicare [id number] 2015 Unknown [id number] 2015 Unknown [id number] 1959 Medicare [id number] 1959 Unknown [id number] 1950 Unknown [id number] 2.16.84 [id number] 1950 Unknown [id number] 2.16.84 [id number] 1950 Unknown [id number] 2.16.84 0.1.706493.3.579.2.593 1950 Unknown [id number] 2.16.84 0.1.376973.3.579.2.593 1950 Unknown [id number] 2.16.84 0.1.849075.3.579.2.593 1950 Unknown [id number] 2.16.84 0.1.252087.3.579.2.593 1950 Unknown [id number] 2.16.84 0.1.726514.3.579.2.593 1950 Unknown [id number] 2.16.84 0.1.054977.3.579.2.593 1950 Unknown [id number] 2.16.84 0.1.546477.3.579.2.593 1950 Unknown [id number] 2.16.84 0.1.094760.3.579.2.593 1950 Unknown [id number] 2.16.84 0.1.251303.3.579.2.593 1950 Unknown [id number] 2.16. [id number] 1950 Unknown [id number] 2.16.84 [id number] Medicare Medicare Nonpatient [id number] 1A [id number] Self-pay Self Pay [id number] Social History Date Type Detail Facility Start: 09-05-2022 End: 06-19-2023 Tobacco smoking status NHIS Ex-smoker [facility] End: 08-22-1979 History of tobacco use Current smoker [facility] End: 08-22-1979 History of tobacco use Cigarette Smoker [facility] Start: 1950 Sex Assigned At Female [facility] Start: 09-04-2023 End: 12-21-2023 Sex Assigned At [facility] Start: 09-04-2023 End: 12-21-2023 History of Social function [facility] Adult Depression Screening Assessment 0 [facility] Start: 08-29-2022 Gender identity Identifies as female gender (finding) [facility] Start: 08-29-2022 Sexual orientation Heterosexual (tejas guzman) [facility] Start: 11-15-2023 End: 12-28-2023 Alcohol intake Current drinker of alcohol (finding) [facility] Start: 11-15-2023 Alcohol Comment special occasions Cl [facility] Medical Equipment Procedure Code Equipment Code Equipment Origin al Text Equipment Identifier Dates Graft Infuse 14m m Small Bovine Collagen Rhbmp-2 23mm Bone Absorbable Sponge - [id number] Start: 12-15-2023 Substitute Mastergraft Calcium Phosphate Collagen Bone Graft Void Filler - [id number] Start: 12-15-2023 Felicia Spacer 8-15 mm 20mm X 55mm 6deg [id number] Start: 12-15-2023 Self Drilling Sc rew Variable Angle 5.5mm 40mm [id number] Start: 12-15-2023 Clinical Notes 07-19-2022 to 01-24-2024 Jorge Desai MD - 01/24/2024 3:20 PM EDTTelephone Encounter - Debbi Roman RN - 01/24/2024 2:04 PM EDTTelephone Encounter - Debbi Roman RN - 01/24/2024 2:04 PM EDTPatient Instructions Note Date & Type Note Facility 01-24-2024 History of Presen t illness Narrative SPINE SURGERY FOLLOW UP This is a virtual visit using [employer] Zoom Video Visit. It required patient-provider interaction for the medical decision making as documented below. I have communicated my name and active licensure. The patient's identity and physical location were verified at the time of this visit. Either the patient or their legal investment representative has been informed of the risks and benefits of -- and alternatives to -- treatment through a remote evaluation and consents to proceed with the evaluation remotely. SERVICE DATE: 01/24/2024 SURGERY DATE: 12/15/23 L3/4 LLIF Christian Noyola is seen for 5 week post operative follow up. Doing well overall. Notes some residual soreness. Notes improvement of her symptoms post surgery. ANTIPLATELET OR ANTICOAGULATION STATUS: No Patient Entered Questionnaires 08/29/2022 09/03/2023 12/21/2023 Spine Questions Pain Location: Lower back Leg Lower back Pain Duration: 6 months - 1 year 1 to 5 years Pain over last 6 months: At least half the days in the past 6 months Every day or nearly every day in the past 6 months Symptoms from neck/cervical spine: No No Yes Employment Status: Retired Retired Retired Involved in law suit/legal claim: No No 12/21/2023 Neck Questionnaires Benzel Modified KIRILL Score Incomplete PROMIS Score Percentiles 08/29/2022 09/03/2023 12/21/2023 Physical Health Physical Function Percentile 31 21* 18* Sleep Percentile 54 42 50 Fatigue Percentile 79 73 73 Pain Interference Percentile 27* 4 21* 08/29/2022 09/03/2023 12/21/2023 PROMIS SOCIAL ROLE SCORE Social Role Satisfaction Percentile 12 38 38 08/29/2022 09/03/2023 12/21/2023 PROMIS Global Health Scale Physical Health Percentile 41 53 Mental Health Percentile 96 82 82 Percentiles provide an indication of how the patient's score ranks in relation to the general population. Higher percentile rankings indicate better function/quality of life. 50th percentile is the average of the general population and indicates half of respondents had a worse score. Depression Screenin08/29/2022 09/03/2023 12/21/2023 PHQ-9 Score 0 0 0 08/29/2022 09/03/2023 12/21/2023 PHQ-9 Self-harm Question Question 9 Not at all Not at all Not at all PHQ-9 Self-Harm (Item 9) response options: 0 Not at all 1 Several days 2 More than half the days 3 Nearly every day PHQ-9 Levels: 0-4 No to mild depression 5-9 Mild depression 10-14 Moderate depression 15-19 Moderately severe depression 20-27 Severe depression PHYSICAL EXAM: There were no vitals taken for this visit. Limited due to virtual visit DATA REVIEW No additional images reviewed today ASSESSMENT/PLAN (M48.062) Lumbar stenosis with neurogenic claudication (primary encounter diagnosis) Christian Lowery Jazmín will continue with medical management of his/her condition. Decrease gabapentin until discontinued. Follow up: Six weeks Imaging Ordered: None I spent 15 minutes discussing with the patient his/her symptoms and future plans I have communicated my name and active licensure. The patient's identity and physical location were verified at the time of this visit. Either the patient or their legal investment representative has been informed of the risks and benefits of -- and alternatives to -- treatment through a remote evaluation and consents to proceed with the evaluation remotely. The documentation for this note was completed by Joel Hunter acting as scribe for Jorge Desai MD. January 24, 2024 3:30 PM. SIGNATURE: Jorge Desai MD PATIENT NAME: Christian Noyola DATE: January 24, 2024 TIME: 8:43 AM PAGER: documented in this encounter [facility] 01-24-2024 Note HNO ID: [id number] Author: JORGE DESAI MD Service: ? Author Type: Physician Type: Progress Notes Filed: 01/24/2024 18:28 Note Text: SPINE SURGERY FOLLOW UP This is a virtual visit using [employer] Video Visit. It required patient-provider interaction for the medical decision making as documented below. I have communicated my name and active licensure. The patient's identity and physical location were verified at the time of this visit. Either the patient or their legal investment representative has been informed of the risks and benefits of -- and alternatives to -- treatment through a remote evaluation and consents to proceed with the evaluation remotely. SERVICE DATE: 01/24/2024 SURGERY DATE: 12/15/23 L3/4 LLIF Christian Noyola is seen for 5 week post operative follow up. Doing well overall. Notes some residual soreness. Notes improvement of her symptoms post surgery. ANTIPLATELET OR ANTICOAGULATION STATUS: No Patient Entered Questionnaires 08/29/2022 09/03/2023 12/21/2023 Spine Questions Pain Location: Lower back Leg Lower back Pain Duration: 6 months - 1 year 1 to 5 years Pain over last 6 months: At least half the days in the past 6 months Every day or nearly every day in the past 6 months Symptoms from neck/cervical spine: No No Yes Employment Status: Retired Retired Retired Involved in law suit/legal claim: No No 12/21/2023 Neck Questionnaires Benzel Modified KIRILL Score Incomplete PROMIS Score Percentiles 08/29/2022 09/03/2023 12/21/2023 Physical Health Physical Function Percentile 31 21* 18* Sleep Percentile 54 42 50 Fatigue Percentile 79 73 73 Pain Interference Percentile 27* 4 21* 08/29/2022 09/03/2023 12/21/2023 PROMIS SOCIAL ROLE SCORE Social Role Satisfaction Percentile 12 38 38 08/29/2022 09/03/2023 12/21/2023 PROMIS Global Health Scale Physical Health Percentile 41 53 Mental Health Percentile 96 82 82 Percentiles provide an indication of how the patient's score ranks in relation to the general population. Higher percentile rankings indicate better function/quality of life. 50th percentile is the average of the general population and indicates half of respondents had a worse score. Depression Screenin08/29/2022 09/03/2023 12/21/2023 PHQ-9 Score 0 0 0 08/29/2022 09/03/2023 12/21/2023 PHQ-9 Self-harm Question Question 9 Not at all Not at all Not at all PHQ-9 Self-Harm (Item 9) response options: 0 Not at all 1 Several days 2 More than half the days 3 Nearly every day PHQ-9 Levels: 0-4 No to mild depression 5-9 Mild depression 10-14 Moderate depression 15-19 Moderately severe depression 20-27 Severe depression PHYSICAL EXAM: There were no vitals taken for this visit. Limited due to virtual visit DATA REVIEW No additional images reviewed today ASSESSMENT/PLAN (M48.062) Lumbar stenosis with neurogenic claudication (primary encounter diagnosis) Christian Noyola will continue with medical management of his/her condition. Decrease gabapentin until discontinued. Follow up: Six weeks Imaging Ordered: None I spent 15 minutes discussing with the patient his/her symptoms and future plans I have communicated my name and active licensure. The patient's identity and physical location were verified at the time of this visit. Either the patient or their legal investment representative has been informed of the risks and benefits of -- and alternatives to -- treatment through a remote evaluation and consents to proceed with the evaluation remotely. The documentation for this note was completed by Joel Hunter acting as scribe for Jorge Desai MD. January 24, 2024 3:30 PM. SIGNATURE: Jorge Desai MD PATIENT NAME: Christian Noyola DATE: January 24, 2024 TIME: 8:43 AM PAGER: [facility] 01-24-2024 Telephone encounter Note Signed form faxed to number requested. Faxed verification received. [facility] 01-24-2024 Miscellaneous Notes Signed form faxed to number requested. Faxed verification received. Printed for review and signature. [facility] Progress Note scanned to [facility] for review and signature documented in this encounter [facility] 01-23-2024 Telephone encounter Note Printed for review and signature. [facility] 01-23-2024 Telephone encounter Note [facility] Progress Note scanned to [facility] for review and signature [facility] 01-15-2024 Note HNO ID: [id number] Author: MELONIE GRANADO RT(R) Service: ? Author Type: Technologist Type: Progress Notes Filed: 01/15/2024 10:42 Note Text: Radiology Service Progress Note PATIENT NAME: Christian Noyola DATE OF SERVICE: January 15, 2024 TIME: 10:42 AM PATIENT IDENTITY VERIFICATION COMPLETED USING TWO (2) IDENTIFIERS: Name and Date of confirmed by patient verbally. FALL SCREENING: Has the patient had 2 falls in the last year or 1 fall with injury or currently using an Ambulatory Assistive Device (Walker, Cane, Wheelchair, Crutches, etc.)? No PATIENT GENDER DATA: Female. status: : No status: N/A PATIENT RELEVANT IMPLANT DATA REVIEWED: Not Applicable PATIENT PRESENTS WITH AN IMPLANTABLE OR ATTACHED PROGRAM ARRANGER: No RADIOLOGY DEPARTMENT: General X-ray: Exam(s) Completed: Spine X-Ray(s): Lumbar AP / LAT / L5-S1 PERIPHERAL IV DATA: Not applicable SIGNED BY: RT Tom(R) January 15, 2024 10:42 AM [facility] 01-15-2024 History of Presen t illness Narrative Radiology Service Progress Note PATIENT NAME: Christian Noyola DATE OF SERVICE: January 15, 2024 TIME: 10:42 AM PATIENT IDENTITY VERIFICATION COMPLETED USING TWO (2) IDENTIFIERS: Name and Date of confirmed by patient verbally. FALL SCREENING: Has the patient had 2 falls in the last year or 1 fall with injury or currently using an Ambulatory Assistive Device (Walker, Cane, Wheelchair, Crutches, etc.)? No PATIENT GENDER DATA: Female. status: : No status: N/A PATIENT RELEVANT IMPLANT DATA REVIEWED: Not Applicable PATIENT PRESENTS WITH AN IMPLANTABLE OR ATTACHED PROGRAM ARRANGER: No RADIOLOGY DEPARTMENT: General X-ray: Exam(s) Completed: Spine X-Ray(s): Lumbar AP / LAT / L5-S1 PERIPHERAL IV DATA: Not applicable SIGNED BY: RT Tom(R) January 15, 2024 10:42 AM documented in this encounter [facility] 12-28-2023 Note HNO ID: [id number] Author: LITZY TODD APRN.DONTE Service: ? Author Type: Nurse Practitioner Type: Progress Notes Filed: 12/28/2023 23:49 Note Text: SPINE SURGERY FOLLOW UP This is an in-person visit. SERVICE DATE: 12/28/2023 SURGERY DATE: 12/15/23 Christian Noyola is seen for 2 week post operative follow up. She is s/p L3-4 LLIF. Prior to surgery she had complainants of back pain with radiation down the right leg. Today she states that her leg pain has resolved. She endorses some stiffness in her back and sore upper thighs. Denies new paresthesias, weakness, fevers, incisional drainage. PAIN EVALUATION 12/28/2023 1242 Pain Level: 2 Pain Location: Back-Lower Description: Stiffness Frequency: Continuous Patient Entered Questionnaires 08/29/2022 09/03/2023 12/21/2023 Spine Questions Pain Location: Lower back Leg Lower back Pain Duration: 6 months - 1 year 1 to 5 years Pain over last 6 months: At least half the days in the past 6 months Every day or nearly every day in the past 6 months Symptoms from neck/cervical spine: No No Yes Employment Status: Retired Retired Retired Involved in law suit/legal claim: No No 12/21/2023 Neck Questionnaires Benzel Modified KIRILL Score Incomplete PROMIS Score Percentiles 08/29/2022 09/03/2023 12/21/2023 Physical Health Physical Function Percentile 31 21* 18* Sleep Percentile 54 42 50 Fatigue Percentile 79 73 73 Pain Interference Percentile 27* 4 21* 08/29/2022 09/03/2023 12/21/2023 PROMIS SOCIAL ROLE SCORE Social Role Satisfaction Percentile 12 38 38 08/29/2022 09/03/2023 12/21/2023 PROMIS Global Health Scale Physical Health Percentile 41 53 Mental Health Percentile 96 82 82 Percentiles provide an indication of how the patient's score ranks in relation to the general population. Higher percentile rankings indicate better function/quality of life. 50th percentile is the average of the general population and indicates half of respondents had a worse score. Descriptive Summary for PROMIS Physical Function T-score = 41 (Percentile 18) Much difficulty - Do 2 hours of physical labor. Some difficulty - Walk more than a mile (1.6 km). Depression Screenin08/29/2022 09/03/2023 12/21/2023 PHQ-9 Score 0 0 0 08/29/2022 09/03/2023 12/21/2023 PHQ-9 Self-harm Question Question 9 Not at all Not at all Not at all PHQ-9 Self-Harm (Item 9) response options: 0 Not at all 1 Several days 2 More than half the days 3 Nearly every day PHQ-9 Levels: 0-4 No to mild depression 5-9 Mild depression 10-14 Moderate depression 15-19 Moderately severe depression 20-27 Severe depression PHYSICAL EXAM: BP 137/64 Pulse 78 Ht 162.6 cm (5' 4 ) Wt 87.3 kg (192 lb 6.4 oz) SpO2 95% BMI 33.03 kg/m? GENERAL APPEARANCE: Well nourished, well developed, and no apparent distress. NEURO PSYCH: Patient oriented to person, place, and time. Mood pleasant. Benign affect. MUSCULOSKELETAL VISUAL INSPECTION CERVICAL: WNL THORACIC: WNL LUMBAR: WNL MOTOR: 5/5 in all muscle groups. SENSORY: Normal sensory exam GAIT: Normal. WOUND ASSESSMENT: Incision healing, Well approximated incision, Non-reddened DATA REVIEW No additional images reviewed today ASSESSMENT/PLAN (Z98.1) S/P lumbar fusion (primary encounter diagnosis) Christian Noyola will continue with medical management of her condition. Discussed slowly increasing activities, wound care, starting physical therapy. 1. Imaging: Lumbar X-Ray Consults: Physical Therapy 2. Follow up: Four weeks, ok for virtual visit Imaging Ordered: Lumbar Xray for post op eval I spent a total of 14 minutes on the date of the service which included preparing to see the patient, [id number] patient care, completing clinical documentation, obtaining and/or reviewing separately obtained history, performing a medically appropriate examination, counseling and educating the patient/family/caregiver, and ordering medications, tests, or procedures. SIGNATURE: Litzy Todd APRN.PROTECTION CONSULTANT PATIENT NAME: Christian Noyola DATE: December 28, 2023 TIME: 12:52 PM PAGER: [facility] 12-28-2023 History of Presen t illness Narrative SPINE SURGERY FOLLOW UP This is an in-person visit. SERVICE DATE: 12/28/2023 SURGERY DATE: 12/15/23 Christian Noyola is seen for 2 week post operative follow up. She is s/p L3-4 LLIF. Prior to surgery she had complainants of back pain with radiation down the right leg. Today she states that her leg pain has resolved. She endorses some stiffness in her back and sore upper thighs. Denies new paresthesias, weakness, fevers, incisional drainage. PAIN EVALUATION 12/28/2023 1242 Pain Level: 2 Pain Location: Back-Lower Description: Stiffness Frequency: Continuous Patient Entered Questionnaires 08/29/2022 09/03/2023 12/21/2023 Spine Questions Pain Location: Lower back Leg Lower back Pain Duration: 6 months - 1 year 1 to 5 years Pain over last 6 months: At least half the days in the past 6 months Every day or nearly every day in the past 6 months Symptoms from neck/cervical spine: No No Yes Employment Status: Retired Retired Retired Involved in law suit/legal claim: No No 12/21/2023 Neck Questionnaires Benzel Modified KIRILL Score Incomplete PROMIS Score Percentiles 08/29/2022 09/03/2023 12/21/2023 Physical Health Physical Function Percentile 31 21* 18* Sleep Percentile 54 42 50 Fatigue Percentile 79 73 73 Pain Interference Percentile 27* 4 21* 08/29/2022 09/03/2023 12/21/2023 PROMIS SOCIAL ROLE SCORE Social Role Satisfaction Percentile 12 38 38 08/29/2022 09/03/2023 12/21/2023 PROMIS Global Health Scale Physical Health Percentile 41 53 Mental Health Percentile 96 82 82 Percentiles provide an indication of how the patient's score ranks in relation to the general population. Higher percentile rankings indicate better function/quality of life. 50th percentile is the average of the general population and indicates half of respondents had a worse score. Descriptive Summary for PROMIS Physical Function T-score = 41 (Percentile 18) Much difficulty - Do 2 hours of physical labor. Some difficulty - Walk more than a mile (1.6 km). Depression Screenin08/29/2022 09/03/2023 12/21/2023 PHQ-9 Score 0 0 0 08/29/2022 09/03/2023 12/21/2023 PHQ-9 Self-harm Question Question 9 Not at all Not at all Not at all PHQ-9 Self-Harm (Item 9) response options: 0 Not at all 1 Several days 2 More than half the days 3 Nearly every day PHQ-9 Levels: 0-4 No to mild depression 5-9 Mild depression 10-14 Moderate depression 15-19 Moderately severe depression 20-27 Severe depression PHYSICAL EXAM: BP 137/64 Pulse 78 Ht 162.6 cm (5' 4 ) Wt 87.3 kg (192 lb 6.4 oz) SpO2 95% BMI 33.03 kg/m GENERAL APPEARANCE: Well nourished, well developed, and no apparent distress. NEURO PSYCH: Patient oriented to person, place, and time. Mood pleasant. Benign affect. MUSCULOSKELETAL VISUAL INSPECTION CERVICAL: WNL THORACIC: WNL LUMBAR: WNL MOTOR: 5/5 in all muscle groups. SENSORY: Normal sensory exam GAIT: Normal. WOUND ASSESSMENT: Incision healing, Well approximated incision, Non-reddened DATA REVIEW No additional images reviewed today ASSESSMENT/PLAN (Z98.1) S/P lumbar fusion (primary encounter diagnosis) Christian Noyola will continue with medical management of her condition. Discussed slowly increasing activities, wound care, starting physical therapy. 1. Imaging: Lumbar X-Ray Consults: Physical Therapy 2. Follow up: Four weeks, ok for virtual visit Imaging Ordered: Lumbar Xray for post op eval I spent a total of 14 minutes on the date of the service which included preparing to see the patient, [id number] patient care, completing clinical documentation, obtaining and/or reviewing separately obtained history, performing a medically appropriate examination, counseling and educating the patient/family/caregiver, and ordering medications, tests, or procedures. SIGNATURE: Litzy Todd APRN.CNP PATIENT NAME: Christian Noyola DATE: December 28, 2023 TIME: 12:52 PM PAGER: documented in this encounter [facility] 12-16-2023 Note HNO ID: [id number] Author: MAURIZIO FITCH RN Service: Nursing Author Type: Registered Nurse Type: Progress Notes Filed: 12/16/2023 15:19 Note Text: Pt dc home with daughter , all needs met questions answered pt [facility]23 Note HNO ID: [id number] Author: LUCIANO BOSCH MD Service: General Internal Medicine Author Type: Physician Type: Progress Notes Filed: 12/16/2023 11:49 Note Text: PROGRESS NOTE - INTERNAL MEDICINE PATIENT NAME: Christian Noyola SERVICE DATE: December 16, 2023 SERVICE TIME: 11:48 AM PCP: No primary care provider on file. ADMITTING PHYSICIAN: Jorge Desai MD MD INTERVAL HISTORY OF PRESENT ILLNESS: Patient seen denies any chest pain shortness of breath pain is well-controlled REVIEW OF SYSTEMS: GENERAL: No weight loss, malaise or fevers RESPIRATORY: Negative for cough, hemoptysis, wheezing, COPD, dyspnea or shortness of breath CARDIOVASCULAR: Negative for chest pain, leg swelling, hypertension, CHF or palpitations GI: No nausea, vomiting, or diarrhea : No history of dysuria, frequency or incontinence PSYCH: Negative for sleep disturbance, mood disorder and recent psychosocial stressors. ENDOCRINE: Negative for cold or heat intolerance, polyuria, polydipsia and goiter All other reviewed and negative other than HPI. PRIOR TO ADMISSION MEDICATIONS: gabapentin (NEURONTIN) 300 mg capsule, Take 1 capsule by mouth two times a day for 90 days., Disp: 60 capsule, Rfl: 2, 12/15/2023 at 0530 amLODIPine (NORVASC) 5 mg tablet, TAKE 1 TABLET BY MOUTH ONCE EVERYDAY, Disp: , Rfl: , 12/15/2023 at 0530 olmesartan (BENICAR) 20 mg tablet, TAKE 1 TABLET BY MOUTH 1 DAILY, Disp: , Rfl: , 12/13/2023 baclofen 10 mg tablet, TAKE 1/2 TAB BY MOUTH EVERY MORNING,1/2 TAB EVERY AFTERNOON,THEN 1 TO 2 TABS EVERY DAY AT BEDTIME, Disp: , Rfl: , 12/14/2023 at 1900 MULTI-VITAMIN ORAL, Take by mouth once daily., Disp: , Rfl: , Past Week at 2100 INs AND OUT SUMMARY: Intake/Output Summary (Last 24 hours) at 12/16/2023 1148 Last data filed at 12/16/2023 0909 Gross per 24 hour Intake 1090 ml Output 2950 ml Net -1860 ml PHYSICAL EXAM: Patient Vitals for the past 24 hrs: BP Temp Temp src Pulse Resp SpO2 Height Weight 12/16/23 1148 160/75 36.9 ?C (98.4 ?F) Oral 86 -- 98 % -- -- 12/16/23 0744 135/67 37 ?C (98.6 ?F) Oral 80 18 96 % -- -- 12/16/23 0620 129/65 37 ?C (98.6 ?F) Oral 87 18 95 % -- -- 12/15/23 2216 150/74 36.6 ?C (97.9 ?F) Oral 92 18 96 % -- -- 12/15/23 1724 -- -- -- -- -- -- 162.6 cm (5' 4 ) 87.1 kg (192 lb) 12/15/23 1514 134/68 36.4 ?C (97.5 ?F) Axillary 69 16 97 % -- -- 12/15/23 1445 141/74 36 ?C (96.8 ?F) Temporal Art 66 16 99 % -- -- 12/15/23 1430 146/73 -- -- 66 16 100 % -- -- 12/15/23 1415 134/71 -- -- 64 16 97 % -- -- 12/15/23 1400 132/70 -- -- 68 16 99 % -- -- 12/15/23 1352 138/76 36 ?C (96.8 ?F) Temporal Art -- 16 100 % -- -- GENERAL: Alert, no distress, cooperative SKIN: Skin color, texture, turgor normal. No rashes or lesions. NECK: No jugulovenous distention, No carotid bruits, Carotid pulse normal contour, Supple LUNGS: Lungs clear to auscultation. Good diaphragmatic excursion. CARDIAC: Normal S1 and S2; no rubs, murmurs, or gallops ABDOMEN: Abdomen soft, non-tender. BS normal. No masses or organomegaly. EXTREMETIES: Extremities normal. No deformities, edema, clubbing or skin discoloration. NEURO: Alert, oriented X 3, Cranial nerves II-XII intact, Gait normal. Reflexes normal and symmetric. Sensation grossly intact. PULSES: 2+ radial, 2+ carotid DATA: Recent Labs 12/16/23 0504 WBC 6.70 HB 12.7 HCT 37.6 PLT 155 NA 141 K 4.3 CHLOR 105 CO2 24 BUN 14 CREAT 0.98* GLUC 101* CA 9.0 IMAGING Reviewed and discussed with the patient. IN-PATIENT MEDICATIONS: Current Facility-Administered Medications Medication Dose Route Frequency gabapentin 300 mg cap(s) (NEURONTIN) 300 mg ORAL BID amLODIPine 5 mg tab(s) (NORVASC) 5 mg ORAL DAILY NaCl 0.9% iv flush bag 20 mL INTRAVENOUS PRN acetaminophen 325-650 mg tab(s) (TYLENOL) 325-650 mg ORAL q 4 H PRN oxyCODONE-acetaminophen 5-325 mg 1-2 tablet (PERCOCET) 1-2 tablet ORAL q 6 H PRN morphine 2 mg injection 2 mg INTRAVENOUS q 2 H PRN keTORolac 15 mg injection (Toradol) 15 mg INTRAVENOUS q 6 H docusate sodium 100 mg cap(s) (COLACE) 100 mg ORAL BID ondansetron 4 mg tab(s) (ZOFRAN) 4 mg ORAL q 6 H PRN Or ondansetron (PF) 4 mg injection (ZOFRAN) 4 mg INTRAVENOUS q 6 H PRN polyethylene glycol 3350 17 g packet 17 g ORAL DAILY baclofen 20 mg tab(s) 20 mg ORAL AT BEDTIME PRN valsartan 80 mg tab(s) (DIOVAN) 80 mg ORAL AT BEDTIME [START ON 12/17/2023] heparin 5,000 Units injection 5,000 Units SUBCUTANEOUS q 12 H PROBLEM LIST: ACTIVE PROBLEM LIST Primary Hypertension Lumbar Stenosis With Neurogenic Claudication S/P Lumbar Spinal Fusion Obesity, Class I, Bmi 30-34.9 ASSESSMENT AND PLAN: Hypertension lumbar stenosis obesity pain is well-controlled SIGNATURE: Luciano Bosch MD DATE: December 16, 2023 TIME: 11:48 AM [facility] 12-16-2023 Note HNO ID: [id number] Author: NOTE, INTERFACE, ? Service: ? Author Type: ? Type: Progress Notes Filed: 12/16/2023 03:26 Note Text: Epic Scheduled Downtime: 12/16/2023 1:00:00 AM to 12/16/2023 3:02:00 AM [facility] 12-15-2023 Note HNO ID: [id number] Author: NILDA BORGES APRN.DIRECTOR OPERATIONS BROADCAST Service: ? Author Type: Nurse Checkering Machine Adjuster Type: Anesthesia Procedure Notes Filed: 12/15/2023 11:39 Note Text: ANESTHESIOLOGY PROCEDURE NOTE Airway General Information Procedure Start Time/Medication Administration: 12/15/2023 11:27 AM Procedure End Time: 12/15/2023 11:27 AM Patient location during procedure: OR Staffing DIRECTOR OPERATIONS BROADCAST: Nilda Borges APRN.DIRECTOR OPERATIONS BROADCAST Performed by: DIRECTOR OPERATIONS BROADCAST Indications and Patient Condition Indications for airway management: anesthesia Preoxygenated: yes anesthesia circuit Patient position: sniffing Method: sleep Cricoid Pressure: No Manual In-Line Stabilization: No Difficult Mask: No Final Airway Details Final airway type: endotracheal airway Final Endotracheal Airway: ETT Cuffed: yes Successful intubation technique: direct laryngoscopy Endotracheal tube insertion site: oral Blade: Tim Blade size: #3 ETT size (mm): 7.0 Measured from: teeth Measurement (cm): 21 Placement verified by: capnometry Cormack-Lehane Classification: grade I - full view of glottis Number of attempts at approach: 1 Airway not difficult SIGNATURE: Nilda Borges APRN.DIRECTOR OPERATIONS BROADCAST PATIENT NAME: Christian Noyola DATE: December 15, 2023 TIME: 11:39 AM CSN: [id number] [facility] 12-05-2023 Telephone encounter Note Spoke with patient and answered questions. Patient also needs a refill of gabapentin. Confirmed pharmacy. [facility] 12-05-2023 Miscellaneous Notes Spoke with patient and answered questions. Patient also needs a refill of gabapentin. Confirmed pharmacy. Patient would like to speak to the nurse regarding her medications before her surgery on December 14. She can be reached at [phone] documented in this encounter [facility] 12-05-2023 Telephone encounter Note Patient would like to speak to the nurse regarding her medications before her surgery on December 14. She can be reached at [phone] [facility] 11-15-2023 Instructions Georgette Chatterjee APRN.PROTECTION CONSULTANT - 11/15/2023 1:10 PM EDT PATIENT PREOPERATIVE INSTRUCTIONS Jorge Desai MD has scheduled you for your procedure at this surgery center: [facility]: [phone] [address] [place] [address]. On your scheduled day of surgery, please report to Patient Registration, ground floor Please read below carefully for your personalized instructions. Dietary Restrictions: - No solid food after midnight. - You may have 12 ounces of clear liquids (water, clear juices such as apple juice or gatorade, carbonated beverages, clear tea, black coffee, jello) until 2 hours before scheduled arrival at facility. Medications: Unless instructed differently below, stay on all of your medications until your surgery. If you start any new medications after today's visit, please contact your surgeon. Please take these medications the morning of surgery: Amlodipine(Norvasc), Gabapentin(Neurontin), DO NOT TAKE YOUR Olmesartan THE NIGHT BEFORE OR MORNING OF SURGERY. Apply 0.5 inch with cotton swab (Q-tip) to each nostril in the morning and evening for 5 days prior to and including day of surgery. If you start any new medications after today's visit, please contact the surgeon's office. Blood Thinning Medications: - Stop NSAIDS (Ibuprofen, Advil, Aleve, Motrin, Celebrex, Mobic, etc.) 7 days before surgery, as directed by your surgeon. - Stop Aspirin 7 days before surgery, as directed by your surgeon. - Stop Vitamin E, ALL multi-vitamins, herbals and dietary supplements 7 days before surgery. - You may take Tylenol (Acetaminophen) or any of your pain medications that do not contain aspirin or NSAIDS as needed. Important Reminders: - Candy, mints, and tobacco products are NOT permitted the morning of surgery. - Hearing aids, dentures and glasses may be worn the morning of surgery. - NO jewelry, body piercings, makeup, hairpins or contacts are to be worn the day of surgery. If you develop symptoms such as a fever, cold, or flu, or have other changes to your health within TWO DAYS of scheduled surgery or the morning of surgery, please contact the surgery center above. Personal Belongings: -Please have photo ID and insurance cards. -If you do not have a copy of advance directives on file with us, please bring a copy with you on the day of surgery. - Leave ALL valuables and money at home or with family members. For Outpatient Procedures: - YOU MUST HAVE A RESPONSIBLE SAMPLING THEORY TEACHER TAKE YOU HOME. A GLUE SPREADER OR GASOLINE TRACTOR OPERATOR CANNOT BE MADE A RESPONSIBLE SAMPLING THEORY TEACHER. - We recommend that a responsible person stays with you overnight to take care of you. - You cannot stay in a hotel alone after outpatient surgery. You will not be permitted to have your surgery, if you do not have someone to take care of you. Arrival Time for Surgery: - The Surgery Center or hospital where you are having surgery will call the afternoon before surgery (or Monday for Monday surgery) with a scheduled arrival time. - If you have not heard by 4 pm, please contact the surgery center above. Please be aware that emergency situations arise, which may delay or change your surgical time. If this happens, we will notify you as soon as possible and regret any inconvenience. If you already have an Advance Directive, please fax a copy to [phone] or email to for it to be added to your chart. If you do not have an Advance Directive, you can find the appropriate form and more information at [email or web address]. We recommend that you complete the Advance Directive form found on the website and bring it with you the day of your surgery. It can be witnessed and scanned into your chart that day. Georgette Chatterjee APRN.PROTECTION CONSULTANT documented in this encounter [facility] 11-15-2023 History and physical note HISTORY AND PHYSICAL EXAMINATION SERVICE DATE: 11/15/2023 SERVICE TIME: 12:05 PM PRIMARY CARE PHYSICIAN: No primary care provider on file. REASON FOR VISIT: Christian Noyola is a 73 year old female who is scheduled for LATERAL INTERBODY FUSION (LIF); LUMBAR INSERTION INTERBODY BIOMED DEVICE(S) W/ANT INSTR ANCHORING TO DISC SPACE W/INTERBODY FUSION,EA INTERSPACE SPINE ALLOGRAFT at the request of Dr. Jorge Desai for consultation. My final recommendation will be communicated back to the requesting physician by way of shared medical record or letter. Assessment Patient has the following medical conditions which may affect thu-operative course: Primary hypertension Assessment: Stable on medication Today 136/7 To take medication morning of surgery Obese Body mass index is 33.07 kg/m . [place] Activity Status Index: METS: Walk indoors, such as around the house (1.75 METs) Do light work around the house, such as dusting or washing dishes (2.70 METs) Take care of self; that is eating, dressing, bathing, using the toilet (2.75 METs) Walk a block or two on level ground (2.75 METs) Do moderate work around the house, such as vacuuming, sweeping floors, or carrying in groceries (3.50 METs) Do yardwork, such as raking leaves, weeding, or pushing a power mower (4.50 METs) Climb a flight of stairs or walk up a hill (5.50 METs) DASI Score: 23.45 Patient denies any chest pain or undue shortness of breath with the above physical activity. Patient is totally dependent. Clinical Frailty Scale: 3. Well, with treated comorbid disease STOP-Bang Score: Has or is being treated for high blood pressure Patient over 50 years old Has a large neck Denies snoring loudly Denies feeling tired, fatigued, or sleepy during the daytime Has not been observed to stop breathing or choking/gasping during sleep BMI less than or equal to 35 kg/m^2 Non-male patient STOP-Bang Score: 3 [id number] Score: Age: 65-74 Sex: female CHF history: No Hypertension history: Yes Stroke/TIA/thromboembolism history: No Vascular disease history: No Diabetes history: No [id number] Score: 3 ARISCAT Score: Age: 51-80 Preoperative SpO2: >=96% Respiratory infection in the last month: No Preoperative anemia: Yes Surgical incision: peripheral Duration of surgery: >3 hrs Emergency procedure: No ARISCAT Score: 37 ANESTHESIA FINDINGS: Intubation History: No history of difficult intubation. No abnormal airway history Significant Anesthesia Considerations: none Airway History: No history of difficult airway No abnormal airway history I - PHYSICAL EVALUATION AIRWAY Patient intubated: No. Tracheostomy tube not present Mallampati: II. TM distance: >3 FB. Neck ROM: full ROM without neurological symptoms. Mouth opening: adequate. Short neck: no. Thick neck: no Eaton present: no Lip Bite Test: II Microretrognathia/Micronagthia/R ecessed Chin: No DENTAL Dental findings: teeth intact. II - ANESTHESIA PLAN Anesthetic plan additional comments: *PACC/TCI - anesthesia choice. Beta Lea Monitoring Plan Post Procedure Analgesic Plan Prepared for surgery: This patient is optimally prepared for surgery pending LABS. CONSULTS: Patient does not require consults for optimization at this time. The Following Tests/Procedures Have Been Initiated: Orders Placed This Encounter Comprehensive Metabolic Panel Standing Status: Future Standing Expiration Date: 02/14/2024 Complete Blood Count and Differential Standing Status: Future Standing Expiration Date: 02/14/2024 Iron and TIBC Standing Status: Future Standing Expiration Date: 02/14/2024 Ferritin Standing Status: Future Standing Expiration Date: 02/14/2024 Urinalysis, reflex Microscopic - LAB COLLECT Standing Status: Future Standing Expiration Date: 02/14/2024 Confirm Blood Type Standing Status: Future Standing Expiration Date: 02/14/2024 Order Specific Question: Did Blood Bank direct you to place this order: Answer: Yes Type and Screen, 30 day Standing Status: Future Standing Expiration Date: 02/14/2024 Urine Culture - LAB COLLECT Standing Status: Future Standing Expiration Date: 02/14/2024 DISCONTD: rosuvastatin (CRESTOR) 5 mg tablet DISCONTD: zonisamide (ZONEGRAN) 100 mg capsule Sig: take 2 capsules by mouth every day at bedtime mupirocin (BACTROBAN) 2 % ointment Sig: Apply 1/2 ointment with a cotton swab in each nostril 2x daily for five days preop Patient should start on December 10, 2023. Dispense: 22 g Refill: 0 ECG (IN OFFICE) Planned Anesthetic: Per anesthesia choice Subjective CHIEF COMPLAINT: Back pain HPI: 73 year old female with back pain Since last visit she started physical therapy and had injections and bilateral RFA. Reports discontinuing physical therapy due to pain. Left-sided symptoms have resolved and is now experiencing right-sided symptoms since physical therapy, now going below the knee. Cannot walk distances. States she was changed from gabapentin to Zonegran but discontinued due to increased intraocular pressure. Currently taking baclofen. PAST MEDICAL HISTORY Diagnosis Date Hypertension PAST SURGICAL HISTORY Procedure Laterality Date BACK SURGERY HX 01/03/2003 BACK SURGERY HX 04/2011 ENDOSCOPIC PLANTAR FASCIOTOMY 08/2006 HYSTEROSCOPY, DIAGNOSTIC (SEPARATE 03/29/2017 SHOULDER SURGERY HX Left 12/24/2018 No family history on file. SOCIAL HISTORY: Social History Tobacco Use Smoking status: Former Packs/day: 0.50 Years: 15.00 Additional pack years: 0.00 Total pack years: 7.50 Types: Cigarettes Quit date: 08/22/1979 Years since quittin.2 Substance Use Topics Alcohol use: Yes Comment: special occasions Drug use: Never Prior to Admission medications as of 11/15/23 1327 Medication Sig Last Dose Taking amLODIPine (NORVASC) 5 mg tablet TAKE 1 TABLET BY MOUTH ONCE EVERYDAY Taking Yes olmesartan (BENICAR) 20 mg tablet TAKE 1 TABLET BY MOUTH 1 DAILY Taking Yes baclofen 10 mg tablet TAKE 1/2 TAB BY MOUTH EVERY MORNING,1/2 TAB EVERY AFTERNOON,THEN 1 TO 2 TABS EVERY DAY AT BEDTIME Taking Yes gabapentin (NEURONTIN) 300 mg capsule Take 1 capsule by mouth two times a day for 90 days. Taking Yes MULTI-VITAMIN ORAL Take by mouth once daily. Taking Yes mupirocin (BACTROBAN) 2 % ointment Apply 1/2 ointment with a cotton swab in each nostril 2x daily for five days preop Patient should start on December 10, 2023. No medication comments found. ALLERGIES Not on File Covid Immunization Dates Overdue - Covid-19 Vaccine ( season) Overdue since 08/04/2023 04/04/2023 Imm Admin: COVID-19 vaccine, age 12+ yr, season (PFIZER-BIONTECH) 11/04/2022 Imm Admin: COVID-19 vaccine, age 12+ yr, bivalent (PFIZER-BIONTECH) 04/25/2022 Imm Admin: COVID-19 vaccine, age 12+ yr, bivalent (PFIZER-BIONTECH) 02/15/2022 Imm Admin: COVID-19 original vaccine, age 12+ yr, monovalent (PFIZER-BIONTECH - STAPLETON TOP) 05/08/2021 Imm Admin: COVID-19 original vaccine, age 12+ yr, monovalent (PFIZER-BIONTECH - PURPLE TOP) Only the first 5 history entries have been loaded, but more history exists. REVIEW OF SYSTEMS: PAIN ASSESSMENT: Pain Pain Level: 2 Pain Location: Back-Lower Description: Radiating, Sore, Tingling Duration Units: Years Frequency: Continuous General: No weight loss, malaise or fevers. Neuro: No history of TIA's, stroke, SLAB MILLER OPERATOR tumor, impaired sensorium, hemiplegia, paraplegia or quadraplegia. No neurological symptoms or problems. Respiratory: No history of current cough or dyspnea, or pneumonia in the past 6 weeks. No history of respiratory/pulmonary symptoms or problems. Cardiovascular: Positive for: Hypertension no history of angina, CHF, MS, cardiac surgery or stents. Denies rest pain, gangrene or revascularization/amputation for PVD GI: No history of GI symptoms or problems. No history of esophageal varices, recent ascites, or ETOH greater than 2 drinks per day. 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 : Denies, No LMP recorded. Patient is postmenopausal. Endocrine: No history of diabetes. Has not taken steroids within the past 30 days. No history of endocrinological symptoms or problems. Hematology: No history of bleeding or clotting disorder. Pt is not taking anti-coagulation or platelet medications. No history of hematological symptoms or problems. Oncology: No history of CA metastasis, chemo within 30 days, or radiotherapy within 90 days. Has not lost 10% of body wt in 6 months. No history of oncological symptoms or problems. Psych: No history of psychiatric symptoms or problems. Musculoskeletal: See HPI Skin: Negative for lesions, rash and itching. Objective PHYSICAL EXAM: VITALS: BP 136/76 Pulse 91 Temp 97.2 Resp 14 Ht 5' 4 (1.63m) Wt 192 lb 10.9 oz (87.4kg) SpO2 100% BMI 33.06 kg/(m^2). General: Alert and oriented, No acute distress, Obese Skin: Normal color, no rash, no lesions. HEENT: EOM, pupils equal, round and reactive. Cardiovascular: Normal S1 & S2, no rubs, murmurs or gallops. No JVD. Pulse regular. Lungs: Normal breath sounds, no wheezes or crackles. Abdomen: Soft, non-tender, no rigidity., Positive bowel sounds Extremities: No deformity, no edema or tenderness, no joint swelling or clubbing. Neurological: Normal cognition and motor skills. Gait normal. No weakness or sensory deficit. Pulses: Carotid and radial pulses normal +2. Diagnostic tests reviewed for today's visit: Lab Value Units Date High Low HB No results within date range. HCT No results within date range. WBC No results within date range. PLT No results within date range. NA No results within date range. K No results within date range. GLUC No results within date range. BUN No results within date range. CREAT No results within date range. PTSEC No results within date range. INR No results within date range. APTT No results within date range. ALT No results within date range. AST No results within date range. TBILI No results within date range. TSH No results within date range. Lab Value Units Date High Low HCGQT No results within date range. UHCG No results within date range. HCG, BODY* No results within date range. Lab Value Units Date High Low ABORHD No results within date range. ABSCREEN No results within date range. No results found for: HBA1C Most recent labs All in Epic Instructions Given to Patient: Instructions located in the after visit summary. Patient given verbal and written preop instructions and voices comprehension and compliance. SIGNATURE: Georgette Chatterjee APRN.CNP PATIENT NAME: Christian Noyola DATE: 11/15/2023 TIME: 1:27 PM [facility] 11-15-2023 History and physical note HISTORY AND PHYSICAL EXAMINATION SERVICE DATE: 11/15/2023 SERVICE TIME: 12:05 PM PRIMARY CARE PHYSICIAN: No primary care provider on file. REASON FOR VISIT: Christian Noyola is a 73 year old female who is scheduled for LATERAL INTERBODY FUSION (LIF); LUMBAR INSERTION INTERBODY BIOMED DEVICE(S) W/ANT INSTR ANCHORING TO DISC SPACE W/INTERBODY FUSION,EA INTERSPACE SPINE ALLOGRAFT at the request of Dr. Jorge Desai for consultation. My final recommendation will be communicated back to the requesting physician by way of shared medical record or letter. Assessment Patient has the following medical conditions which may affect thu-operative course: Primary hypertension Assessment: Stable on medication Today 136/7 To take medication morning of surgery Obese Body mass index is 33.07 kg/m . [place] Activity Status Index: METS: Walk indoors, such as around the house (1.75 METs) Do light work around the house, such as dusting or washing dishes (2.70 METs) Take care of self; that is eating, dressing, bathing, using the toilet (2.75 METs) Walk a block or two on level ground (2.75 METs) Do moderate work around the house, such as vacuuming, sweeping floors, or carrying in groceries (3.50 METs) Do yardwork, such as raking leaves, weeding, or pushing a power mower (4.50 METs) Climb a flight of stairs or walk up a hill (5.50 METs) DASI Score: 23.45 Patient denies any chest pain or undue shortness of breath with the above physical activity. Patient is totally dependent. Clinical Frailty Scale: 3. Well, with treated comorbid disease STOP-Bang Score: Has or is being treated for high blood pressure Patient over 50 years old Has a large neck Denies snoring loudly Denies feeling tired, fatigued, or sleepy during the daytime Has not been observed to stop breathing or choking/gasping during sleep BMI less than or equal to 35 kg/m^2 Non-male patient STOP-Bang Score: 3 [id number] Score: Age: 65-74 Sex: female CHF history: No Hypertension history: Yes Stroke/TIA/thromboembolism history: No Vascular disease history: No Diabetes history: No [id number] Score: 3 ARISCAT Score: Age: 51-80 Preoperative SpO2: >=96% Respiratory infection in the last month: No Preoperative anemia: Yes Surgical incision: peripheral Duration of surgery: >3 hrs Emergency procedure: No ARISCAT Score: 37 ANESTHESIA FINDINGS: Intubation History: No history of difficult intubation. No abnormal airway history Significant Anesthesia Considerations: none Airway History: No history of difficult airway No abnormal airway history I - PHYSICAL EVALUATION AIRWAY Patient intubated: No. Tracheostomy tube not present Mallampati: II. TM distance: >3 FB. Neck ROM: full ROM without neurological symptoms. Mouth opening: adequate. Short neck: no. Thick neck: no Eaton present: no Lip Bite Test: II Microretrognathia/Micronagthia/R ecessed Chin: No DENTAL Dental findings: teeth intact. II - ANESTHESIA PLAN Anesthetic plan additional comments: *PACC/TCI - anesthesia choice. Beta Lea Monitoring Plan Post Procedure Analgesic Plan Prepared for surgery: This patient is optimally prepared for surgery pending LABS. CONSULTS: Patient does not require consults for optimization at this time. The Following Tests/Procedures Have Been Initiated: Orders Placed This Encounter Comprehensive Metabolic Panel Standing Status: Future Standing Expiration Date: 02/14/2024 Complete Blood Count and Differential Standing Status: Future Standing Expiration Date: 02/14/2024 Iron and TIBC Standing Status: Future Standing Expiration Date: 02/14/2024 Ferritin Standing Status: Future Standing Expiration Date: 02/14/2024 Urinalysis, reflex Microscopic - LAB COLLECT Standing Status: Future Standing Expiration Date: 02/14/2024 Confirm Blood Type Standing Status: Future Standing Expiration Date: 02/14/2024 Order Specific Question: Did Blood Bank direct you to place this order: Answer: Yes Type and Screen, 30 day Standing Status: Future Standing Expiration Date: 02/14/2024 Urine Culture - LAB COLLECT Standing Status: Future Standing Expiration Date: 02/14/2024 DISCONTD: rosuvastatin (CRESTOR) 5 mg tablet DISCONTD: zonisamide (ZONEGRAN) 100 mg capsule Sig: take 2 capsules by mouth every day at bedtime mupirocin (BACTROBAN) 2 % ointment Sig: Apply 1/2 ointment with a cotton swab in each nostril 2x daily for five days preop Patient should start on December 10, 2023. Dispense: 22 g Refill: 0 ECG (IN OFFICE) Planned Anesthetic: Per anesthesia choice Subjective CHIEF COMPLAINT: Back pain HPI: 73 year old female with back pain Since last visit she started physical therapy and had injections and bilateral RFA. Reports discontinuing physical therapy due to pain. Left-sided symptoms have resolved and is now experiencing right-sided symptoms since physical therapy, now going below the knee. Cannot walk distances. States she was changed from gabapentin to Zonegran but discontinued due to increased intraocular pressure. Currently taking baclofen. PAST MEDICAL HISTORY Diagnosis Date Hypertension PAST SURGICAL HISTORY Procedure Laterality Date BACK SURGERY HX 01/03/2003 BACK SURGERY HX 04/2011 ENDOSCOPIC PLANTAR FASCIOTOMY 08/2006 HYSTEROSCOPY, DIAGNOSTIC (SEPARATE 03/29/2017 SHOULDER SURGERY HX Left 12/24/2018 No family history on file. SOCIAL HISTORY: Social History Tobacco Use Smoking status: Former Packs/day: 0.50 Years: 15.00 Additional pack years: 0.00 Total pack years: 7.50 Types: Cigarettes Quit date: 08/22/1979 Years since quittin.2 Substance Use Topics Alcohol use: Yes Comment: special occasions Drug use: Never Prior to Admission medications as of 11/15/23 1327 Medication Sig Last Dose Taking amLODIPine (NORVASC) 5 mg tablet TAKE 1 TABLET BY MOUTH ONCE EVERYDAY Taking Yes olmesartan (BENICAR) 20 mg tablet TAKE 1 TABLET BY MOUTH 1 DAILY Taking Yes baclofen 10 mg tablet TAKE 1/2 TAB BY MOUTH EVERY MORNING,1/2 TAB EVERY AFTERNOON,THEN 1 TO 2 TABS EVERY DAY AT BEDTIME Taking Yes gabapentin (NEURONTIN) 300 mg capsule Take 1 capsule by mouth two times a day for 90 days. Taking Yes MULTI-VITAMIN ORAL Take by mouth once daily. Taking Yes mupirocin (BACTROBAN) 2 % ointment Apply 1/2 ointment with a cotton swab in each nostril 2x daily for five days preop Patient should start on December 10, 2023. No medication comments found. ALLERGIES Not on File Covid Immunization Dates Overdue - Covid-19 Vaccine ( season) Overdue since 08/04/2023 04/04/2023 Imm Admin: COVID-19 vaccine, age 12+ yr, season (PFIZER-BIONTECH) 11/04/2022 Imm Admin: COVID-19 vaccine, age 12+ yr, bivalent (PFIZER-BIONTECH) 04/25/2022 Imm Admin: COVID-19 vaccine, age 12+ yr, bivalent (PFIZER-BIONTECH) 02/15/2022 Imm Admin: COVID-19 original vaccine, age 12+ yr, monovalent (PFIZER-BIONTECH - STAPLETON TOP) 05/08/2021 Imm Admin: COVID-19 original vaccine, age 12+ yr, monovalent (PFIZER-BIONTECH - PURPLE TOP) Only the first 5 history entries have been loaded, but more history exists. REVIEW OF SYSTEMS: PAIN ASSESSMENT: Pain Pain Level: 2 Pain Location: Back-Lower Description: Radiating, Sore, Tingling Duration Units: Years Frequency: Continuous General: No weight loss, malaise or fevers. Neuro: No history of TIA's, stroke, SLAB MILLER OPERATOR tumor, impaired sensorium, hemiplegia, paraplegia or quadraplegia. No neurological symptoms or problems. Respiratory: No history of current cough or dyspnea, or pneumonia in the past 6 weeks. No history of respiratory/pulmonary symptoms or problems. Cardiovascular: Positive for: Hypertension no history of angina, CHF, MS, cardiac surgery or stents. Denies rest pain, gangrene or revascularization/amputation for PVD GI: No history of GI symptoms or problems. No history of esophageal varices, recent ascites, or ETOH greater than 2 drinks per day. 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 : Denies, No LMP recorded. Patient is postmenopausal. Endocrine: No history of diabetes. Has not taken steroids within the past 30 days. No history of endocrinological symptoms or problems. Hematology: No history of bleeding or clotting disorder. Pt is not taking anti-coagulation or platelet medications. No history of hematological symptoms or problems. Oncology: No history of CA metastasis, chemo within 30 days, or radiotherapy within 90 days. Has not lost 10% of body wt in 6 months. No history of oncological symptoms or problems. Psych: No history of psychiatric symptoms or problems. Musculoskeletal: See HPI Skin: Negative for lesions, rash and itching. Objective PHYSICAL EXAM: VITALS: BP 136/76 Pulse 91 Temp 97.2 Resp 14 Ht 5' 4 (1.63m) Wt 192 lb 10.9 oz (87.4kg) SpO2 100% BMI 33.06 kg/(m^2). General: Alert and oriented, No acute distress, Obese Skin: Normal color, no rash, no lesions. HEENT: EOM, pupils equal, round and reactive. Cardiovascular: Normal S1 & S2, no rubs, murmurs or gallops. No JVD. Pulse regular. Lungs: Normal breath sounds, no wheezes or crackles. Abdomen: Soft, non-tender, no rigidity., Positive bowel sounds Extremities: No deformity, no edema or tenderness, no joint swelling or clubbing. Neurological: Normal cognition and motor skills. Gait normal. No weakness or sensory deficit. Pulses: Carotid and radial pulses normal +2. Diagnostic tests reviewed for today's visit: Lab Value Units Date High Low HB No results within date range. HCT No results within date range. WBC No results within date range. PLT No results within date range. NA No results within date range. K No results within date range. GLUC No results within date range. BUN No results within date range. CREAT No results within date range. PTSEC No results within date range. INR No results within date range. APTT No results within date range. ALT No results within date range. AST No results within date range. TBILI No results within date range. TSH No results within date range. Lab Value Units Date High Low HCGQT No results within date range. UHCG No results within date range. HCG, BODY* No results within date range. Lab Value Units Date High Low ABORHD No results within date range. ABSCREEN No results within date range. No results found for: HBA1C Most recent labs All in Epic Instructions Given to Patient: Instructions located in the after visit summary. Patient given verbal and written preop instructions and voices comprehension and compliance. SIGNATURE: Georgette Chatterjee APRN.CNP PATIENT NAME: Christian Noyola DATE: 11/15/2023 TIME: 1:27 PM documented in this encounter [facility] 09-05-2023 Miscellaneous Notes Surgery date moved to 12/15/23. Patient called to speak with Dr Desai's nurse. She would like to accept a surgery date of MondayDecember 14. She will wait for it to show up on her MyChart. documented in this encounter [facility] 09-04-2023 Note HNO ID: [id number] Author: JORGE DESAI MD Service: ? Author Type: Physician Type: Progress Notes Filed: 09/04/2023 19:00 Note Text: SPINE SURGERY ESTABLISHED This is an in-person visit. DATE OF SERVICE: 09/04/2023 DATE OF LAST VISIT: 09/05/2022 SUBJECTIVE: HPI:Christian Noyola is a 73 year old female presenting alone. Since last visit she started physical therapy and had injections and bilateral RFA. Reports discontinuing physical therapy due to pain. Left-sided symptoms have resolved and is now experiencing right-sided symptoms since physical therapy, now going below the knee. Cannot walk distances. States she was changed from gabapentin to Zonegran but discontinued due to increased intraocular pressure. Currently taking baclofen. Denies abdominal surgeries. Non-smoker. She has a vacation planned in November. PAIN EVALUATION 09/03/2023 1000 09/04/2023 1315 Pain Level: 5 4 Pain Location: Leg-Right Back Description: Pressure;Radiating;Sore;Tightnes s Sore;Radiating;Other: See comment Duration Units: Hours -- Frequency: Intermittent Intermittent Intervention/Comfort measure: Medication;Exercise -- Comments: also pain across my back waistline area constricting Pain Radiation: Back down right posterior leg Pain Ratio: R > L AMBULATORY STATUS: Impaired Community Distances ANTIPLATELET OR ANTICOAGULATION STATUS: No PREVIOUS CONSERVATIVE TREATMENTS: OTC NSAIDS for 3 Months or Greater (Ibuprofen) Physical Therapy Injections RFA REVIEW OF SYSTEMS: GENERAL: No weight loss or malaise MUSCULOSKELETAL: Positive for low back and right leg pain NEURO: No history of headaches, syncope, paralysis, seizures or tremors MEDICATIONS: amLODIPine (NORVASC) 5 mg tablet TAKE 1 TABLET BY MOUTH ONCE EVERYDAY olmesartan (BENICAR) 20 mg tablet TAKE 1 TABLET BY MOUTH 1 DAILY baclofen 10 mg tablet TAKE 1/2 TAB BY MOUTH EVERY MORNING,1/2 TAB EVERY AFTERNOON,THEN 1 TO 2 TABS EVERY DAY AT BEDTIME MULTI-VITAMIN ORAL Take by mouth once daily. VITAMINS B COMPLEX capsule Take 1 capsule by mouth once daily. gabapentin (NEURONTIN) 300 mg capsule Take 1 capsule by mouth two times a day for 90 days. DAILY-SAÚL, WITH FOLIC ACID, 400 mcg Take 1 tablet by mouth once daily. (Patient not taking: Reported on 09/04/2023) Cholecalciferol, Vitamin D3, 125 mcg (5,000 unit) cap Take 5,000 Units by mouth three times a week. (Patient not taking: Reported on 09/04/2023) Patient Entered Questionnaires Spine Questions 08/29/2022 09/03/2023 Pain Location: Lower back Leg Pain Duration: 6 months - 1 year 1 to 5 years Pain over last 6 months: At least half the days in the past 6 months Every day or nearly every day in the past 6 months Symptoms from neck/cervical spine: No No Employment Status: Retired Retired Involved in law suit/legal claim: No No PROMIS Score Percentiles Physical Health 08/29/2022 09/03/2023 Physical Function Percentile 31 21* Sleep Percentile 54 42 Fatigue Percentile 79 73 Pain Interference Percentile 27* 4 PROMIS SOCIAL ROLE SCORE 08/29/2022 09/03/2023 Social Role Satisfaction Percentile 12 38 PROMIS Global Health Scale 08/29/2022 09/03/2023 Physical Health Percentile - 41 Mental Health Percentile 96 82 Percentiles provide an indication of how the patient's score ranks in relation to the general population. Higher percentile rankings indicate better function/quality of life. 50th percentile is the average of the general population and indicates half of respondents had a worse score. Depression Screening: PHQ-9 08/29/2022 09/03/2023 Score 0 0 PHQ-9 Self-harm Question 08/29/2022 09/03/2023 Thoughts that you would be better off , or of hurting yourself in some way 0 0 PHQ-9 Self-Harm (Item 9) response options: 0 Not at all 1 Several days 2 More than half the days 3 Nearly every day PHQ-9 Levels: 0-4 No to mild depression 5-9 Mild depression 10-14 Moderate depression 15-19 Moderately severe depression 20-27 Severe depression OBJECTIVE: PHYSICAL EXAM: BP 149/89 Pulse 70 Ht 5' 4 (1.63m) Wt 193 lb 9.6 oz (87.8kg) SpO2 99% BMI 33.21 kg/(m2). Oriented x3 PERRL FS Motor: UE D 5/5, B 5/5, T 5/5, G 5/5, HI 5/5 LE HF 5/5, KE 5/5, DF 5/5, PF 5/5, EHL 5/5 Gait is normal Hip exam is normal NEURO TESTS: None DATA REVIEW:Diagnostic tests reviewed for today's visit, films/specimens were personally reviewed by me: No additional images reviewed today ASSESSMENT/PLAN (M48.062) Lumbar stenosis with neurogenic claudication (primary encounter diagnosis) Patient was rotational subluxation of L3-4 with L3 radiculopathy Conservative management offering only mild relief It has been debilitatingAnd preventing the patient with daily activity I discussed the patient risk and benefit and she would like to proceed Christian Noyola is clinically indicated and wishes to pursue L3-4 LLIF The risks, benefits, and anticipated outcomes of the proc (more content not included)... [facility] 06-19-2023 Evaluation note Encounter Date Diagnosis Assessment [...] ARB and increase Amlodipine to 5mg bid [employer] Other 11-09-2023 Evaluation note* Encounter Date Diagnosis Assessment Notes Treatment Notes Treatment Clinical Notes May, Primary hypertension (ICD-10 - I10) [employer] Other 11-02-2023 Evaluation note* Encounter Date Diagnosis [...] and applesauce. Stool softener and Miralax optional [employer] Other 09-12-2023 Evaluation note* Encounter Date Diagnosis Assessment Notes Treatment Notes Treatment Clinical Notes Mar, Primary hypertension (ICD-10 - I10) [employer] Other 08-13-2023 Evaluation note* Encounter Date Diagnosis Assessment Notes Treatment Notes Treatment Clinical Notes Feb, Primary hypertension (ICD-10 - I10) [employer] Other 08-03-2023 Evaluation note* Encounter Date Diagnosis Assessment Notes Treatment Notes Treatment Clinical Notes Feb, Primary hypertension (ICD-10 - I10) [employer] Other 05-30-2023 NoteCONSULTATION CONSULTATION DATE: 12/06/2022 TO: [...] our patients to inform us about any fnuz-gvf-qfqdurz medications or herbal remedies/nutritional supplements/alternative remedies. 2. [...] treatment options with their primary care provider.[id number] Note CONSULTATION CONSULTATION DATE: 11/03/2022 TO: Jordan [...] our patients to inform us about any whxx-yub-cwwdtyj medications or herbal remedies/nutritional supplements/alternative remedies. 2. [...] treatment options with their primary care provider.[facility] [id number] Note CONSULTATION CONSULTATION DATE: 10/06/2022 TO: Jordan [...] regimen of Neurontin 300 mg b.i. d.[facility] [id number] Miscellaneous Notes* Telephone Encounter - Debbi Roman RN - 09/09/2022 2:52 PM EST Will forward for review. Scan on 09/08/2022 2:37 PM by External Provider: Spine Injection * Telephone Encounter - Tanya Navarro - 09/09/2022 2:44 PM EST Received spine injection report by fax. Scanned to patient's chart for provider review. [facility] NoteCONSULTATION CONSULTATION DATE: 09/08/2022 HISTORY: This is a very pleasant, 72-year-old female who returns to the clinic, status post lumbar epidural steroid injection completed on 08/02/2022. The patient states she received 25% relief for 2-3 weeks. Patient was [facility] by [facility]. The patient does have [...] care will be established at that time.[facility] 09-05-[facility]22 History of Present illness Narrative* Jorge Desai [...] September 05, 2022 TIME: 12:57 PM PAGER: Preeti Fletcher, attest that this document has been prepared under the direction and in the presence of Jorge Desai MD on September 05, 2022 at 1:23 PM. [facility]2023 NoteCONSULTATION CONSULTATION DATE: 07/19/2022 HISTORY [...] The patient is hoping to go to [place] in a few weeks. We have also strongly recommended to the patient for a neurosurgical consult, given the multiple levels the patient has pathology. I believe the surgical consult will also help define for the patient progression components. In the interim, the patient will also continue with extension exercises. The patient understands and would like to proceed. CC: Jordan Castillo D.O.[facility] note* Diagnosis Degenerative scoliosis- Primary documented in this encounter [facility] noteNo [facility] [employer] Other Evaluation note* Diagnosis Pre-op testing- Primary Preoperative examination, unspecified Spinal stenosis, lumbar region with neurogenic claudication documented in this encounter [facility] note* Diagnosis Pre-op evaluation- Primary Preoperative examination, unspecified Pre-op testing Preoperative examination, unspecified Primary hypertension Unspecified essential hypertension Pain in right hip Pain in joint, pelvic region and thigh Pain, unspecified Spinal stenosis, lumbar region with neurogenic claudication * Assessment & Plan Note - Georgette Chatterjee APRN.CNP - 11/15/2023 12:41 PM EDTAssociated Problem(s): Primary hypertension Assessment: Stable on medication Today To take medication morning of surgery documented in this encounter [facility] note* Diagnosis S/P lumbar fusion- Primary Arthrodesis status documented in this encounter [facility] note* Diagnosis S/P lumbar fusion Arthrodesis status documented in this encounter [facility] note* Diagnosis Lumbar stenosis with neurogenic claudication- Primary Spinal stenosis, lumbar region, with neurogenic claudication documented in this encounter [facility] note* Diagnosis Onset Date Resolution Status GERD (gastroesophageal reflux disease) acute Hypercholesterolemia acute Hypertension acute Lumbar spondylosis acute Multiple sclerosis acute Medicare annual wellness visit, subsequent noneactive Screening mammogram for breast cancer noneactive [facility] Work Phone: History general Narrative - Reported* Type Description [...] x's 2 Hospitalization History SEE SURGICAL HX [employer] Other Reason for referral (narrative)* Outpatient Procedure (Routine) - Pending Review Specialty Diagnoses / Procedures Referred By Contac t Referred To Contact [facility] Diagnoses Pre-op evaluation Pre-op testing Procedures ECG COMPLETE ECG ROUTINE ECG W/LEAST 12 LDS W/I&R Georgette Chatterjee FIELD ENGINEER.PROTECTION CONSULTANT [address] [place] [address] [facility] [place] [address] [place] [address] Referral ID Status Reason Start Date Expiration Date Visits Requested Visits Authorized [id number] Pending Review Auto-Generat ed Referral 11/15/2023 11/14/2024 1 1 [facility] for referral (narrative)* Diagnostic Procedure Only (Routine) - Pending Review Specialty Diagnoses / Procedures Referred By Contac t Referred To Contact XR IMAGING Diagnoses S/P lumbar fusion Procedures XR LUMBAR LIMITED 2V AP/LAT RADEX SPINE LUMBOSACRAL 2/3 VIEWS Litzy Todd, FIELD ENGINEER.PROTECTION CONSULTANT [address] [place] [address] [place] [address] Referral ID Status Reason Start Date Expiration Date Visits Requested Visits Authorized [id number] Pending Review Auto-Generat ed Referral 12/28/2023 01/26/2025 1 1 * Physical Therapy (Routine) - Authorized Specialty Diagnoses / Procedures Referred By Contac t Referred To Contact [facility] Diagnoses S/P lumbar fusion Procedures CONSULT TO PHYSICAL THERAPY PHYSICAL THERAPY EVALUATION HIGH COMPLEX 45 MINS Litzy Todd FIELD ENGINEER.PROTECTION CONSULTANT [address] [place] [address] [facility] [place] [address] [place] [address] Referral ID Status Reason Start Date Expiration Date Visits Requested Visits Authorized [id number] Authorized PCP Requested Referral Auto-Generate d Referral 12/28/2023 12/27/2024 99 99 [facility] for referral (narrative)* Diagnostic Procedure Only (Routine) - Closed Specialty Diagnoses / Procedures Referred By Contac t Referred To Contact XR IMAGING Diagnoses S/P lumbar fusion Procedures XR LUMBAR LIMITED 2V AP/LAT RADEX SPINE LUMBOSACRAL 2/3 VIEWS Litzy Todd FIELD ENGINEER.PROTECTION CONSULTANT [address] [place] [address] [place] [address] Referral ID Status Reason Start Date Expiration Date V isits Requested Visits Authorized [id number] Closed Auto-Generate d Referral 12/28/2023 01/26/2025 1 1 [facility] for visit Narrative* Diagnostic Procedure Only (Routine) - Closed Specialty Diagnoses / Procedures Referred By Contac t Referred To Contact XR IMAGING Diagnoses S/P lumbar fusion Procedures XR LUMBAR LIMITED 2V AP/LAT RADEX SPINE LUMBOSACRAL 2/3 VIEWS Litzy Todd, FIELD ENGINEER.PROTECTION CONSULTANT [address] [place] [address] [place] [address] Referral ID Status Reason Start Date Expiration Date V isits Requested Visits Authorized [id number] Closed Auto-Generate d Referral 12/28/2023 01/26/2025 1 1 [facility] Summary Purpose Family History Relationship Condition Age at Onset Recorded Date/T flora father Unknown Diabetes mellitus Unknown Malignant neoplasm Unknown father Malignant neoplasm Unknown mother Unknown Heart disease Unknown Hypertension Unknown Advance Directives Documents on File Type Date Recorded 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 60 MINUTES Jodi Vega PA-C [id number] [place] [address] Referral ID Status Reason Start Date Expiration Date Visits Requested Visits Authorized [id number] Authorized PCP Requested Referral 09/05/2023 09/04/2024 1 1 Chief Complaint and Reason for Visit Chief Complaint medicare wellness Reason for Visit GERD (gastroesophage al reflux disease) Hypercholesterolemia Hypertension Lumbar spondylosis Multiple sclerosis Medicare annual wellness visit, subsequent Screening mammogram for breast cancer Additional Source Comments INFORMATION SOURCE (unrecogn ized section and content) DATE CREATED AUTHOR 08/26/2021 [facility] DATE CREATED AUTHOR AUTHOR'S ORGANIZ ATION 12/16/2022 [facility] DATE CREATED AUTHOR AUTHOR'S ORGANIZ ATION 02/28/2023 [facility] DATE CREATED AUTHOR AUTHOR'S ORGANIZ ATION 11/08/2023 [facility] EPIC DATE CREATED AUTHOR AUTHOR'S ORGANIZ ATION 12/18/2023 [facility] DATE CREATED AUTHOR AUTHOR'S ORGANIZ ATION 01/16/2024 [facility] DATE CREATED AUTHOR AUTHOR'S ORGANIZ ATION 01/28/2024 [facility] Source Comments (unrecognize d section and content) In the event this informatio n is protected by the Federal Confidentiality of Alcohol and Drug Abuse Patient Records regulations: The Federal rules restrict any use of the information to criminally investigate or prosecute any alcohol or drug abuse patient.[facility] CenterIn the event this information is protected by the Federal Confidentiality of Alcohol and Drug Abuse Patient Records regulations: The Federal rules restrict any use of the information to criminally investigate or prosecute any alcohol or drug abuse patient.[facility] CenterIn the event this information is protected by the Federal Confidentiality of Alcohol and Drug Abuse Patient Records regulations: The Federal rules restrict any use of the information to criminally investigate or prosecute any alcohol or drug abuse patient.[facility] CenterIn the event this information is protected by the Federal Confidentiality of Alcohol and Drug Abuse Patient Records regulations: The Federal rules restrict any use of the information to criminally investigate or prosecute any alcohol or drug abuse patient.[facility] CenterIn the event this information is protected by the Federal Confidentiality of Alcohol and Drug Abuse Patient Records regulations: The Federal rules restrict any use of the information to criminally investigate or prosecute any alcohol or drug abuse patient.[facility] CenterIn the event this information is protected by the Federal Confidentiality of Alcohol and Drug Abuse Patient Records regulations: The Federal rules restrict any use of the information to criminally investigate or prosecute any alcohol or drug abuse patient.[facility] CenterIn the event this information is protected by the Federal Confidentiality of Alcohol and Drug Abuse Patient Records regulations: The Federal rules restrict any use of the information to criminally investigate or prosecute any alcohol or drug abuse patient.[facility] CenterIn the event this information is protected by the Federal Confidentiality of Alcohol and Drug Abuse Patient Records regulations: The Federal rules restrict any use of the information to criminally investigate or prosecute any alcohol or drug abuse patient.[facility] CenterIn the event this information is protected by the Federal Confidentiality of Alcohol and Drug Abuse Patient Records regulations: The Federal rules restrict any use of the information to criminally investigate or prosecute any alcohol or drug abuse patient.[facility] CenterIn the event this information is protected by the Federal Confidentiality of Alcohol and Drug Abuse Patient Records regulations: The Federal rules restrict any use of the information to criminally investigate or prosecute any alcohol or drug abuse patient.[facility] CenterIn the event this information is protected by the Federal Confidentiality of Alcohol and Drug Abuse Patient Records regulations: The Federal rules restrict any use of the information to criminally investigate or prosecute any alcohol or drug abuse patient.[facility] Reason for Visit (unrecogniz ed section and content) Reason Comments New Reason Comments Received Outside Medical Records Reason Comments Surgery Date Specialty Diagnoses / Procedures Referred By Paco t Referred To Contact Diagnoses Pre-op testing Procedures REFER TO PACC - PRE ANESTHESIA CONSULTATION CLINIC OFFICE/OUTPATIENT NEW HIGH MDM 60 MINUTES Jodi Vega PA-C [id number] 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 [facility] [employer] [facility]. provides no warranty or guarantee of the accuracy or completeness of information in this document.
[2024-04-11 08:59] LABS: Basophils Percent Auto 0.6 % (0.2-2.0); Eosinophils Absolute Auto 0.1 10^3/uL (0.0-0.7); Eosinophils Percent Auto 2.2 % (0.9-7.0); Hematocrit 38.3 % (36.0-48.0); Immature Granulocytes Abs Auto 0.02 10^3/uL (0.00-0.03); Immature Granulocytes Pct Auto 0.4 % (0.0-0.5); Lymphocytes Absolute Auto 1.8 10^3/uL (1.2-3.8); Lymphocytes Percent Auto 36.9 % (20.5-60.0); Mean Corpuscular HGB Conc 33.9 g/dL (29.9-35.2); Mean Corpuscular Hemoglobin 31.2 pg (26.7-34.0); Mean Corpuscular Volume 91.8 fL (81.0-99.0); Mean Platelet Volume 9.6 fL (9.5-13.5); Monocytes Absolute Auto 0.4 10^3/uL (0.3-0.8); Neutrophils Absolute Auto 2.5 10^3/uL (1.4-6.5); Neutrophils Percent Auto 50.9 % (43.0-75.0); Platelet Count 169 10^3/uL (150-450); Red Blood Count 4.17 10^6/uL (4.20-5.40); Red Cell Distribution Width 12.9 % (11.0-15.0); White Blood Count 4.9 10^3/uL (4.0-11.0)
[2024-04-11 09:26] LABS: Alanine Aminotransferase 49 U/L (14-59); Albumin Level 3.5 g/dL (3.4-5.0); Alkaline Phosphatase 106 U/L (46-116); Aspartate Amino Transferase 36 U/L (15-37); Bilirubin Direct 0.1 mg/dL (0.0-0.2); Bilirubin Total 0.5 mg/dL (0.2-1.0); Globulin 3.5 g/dL
[2024-04-12 05:12] LABS: HCV Ab Non Reactive (Non Reactive)
[2024-04-12 06:14] LABS: Hep A Ab, Total Negative (Negative); Hep B Core Ab, Tot Negative (Negative)
[2024-04-12 13:10] LABS: ANA Direct Negative (Negative)
== END 2024-04-11 08:05 | disposition home or self-care (01) ==
LOC: LAB 08:04
PROVIDERS: PCP Internal Medicine; Visit Provider Internal Medicine
DX: R73.01 Impaired fasting glucose (principal); R74.01 Elevation of levels of liver transaminase levels; K75.9 Inflammatory liver disease, unspecified; K76.0 Fatty (change of) liver, not elsewhere classified; I10 Essential (primary) hypertension
CPT/HCPCS: 36415; 80076; 82728; 83036; 85025; 86038; 86317; 86704; 86708; 87340; 87522

== ENCOUNTER 2024-08-01 10:10 | Outpatient (OUT) | payer MEDICARE, OTHER, SELFPAY ==
--- NOTE | 2024-08-01 10:14 | MM_ITS ---
Patient Name: CHRISTIAN FISCHER MR#: [id number] : 1950 Exam Date: 08/01/2024 Ordering Doctor: DR Jordan Castillo D.O. RADIOLOGY REPORT PROCEDURE: MM TOMOSYNTHESIS SCREENING BI COMPARISON: MG MAMM SCREEN 3D STEFAN CAD, 07/27/2022. MM TOMOSYNTHESIS SCREENING BI, 07/31/2023. INDICATIONS: Screening Calculator Name NCI Breast Cancer Risk Assessment Tool 5 Year Breast Cancer Risk 3.70% Lifetime Breast Cancer Risk 8.40% Personal Breast Cancer No Personal Ovarian Cancer No Treatments None Family Cancers Father with anal cancer at age 79; Mother with breast cancer at age 47. LOCATION: [facility] BREAST COMPOSITION: The breasts are heterogeneously dense,which may obscure small masses. FINDINGS: DIAGNOSTIC CATEGORY 2--BENIGN FINDING. NO CHANGE FROM COMPARISON. Scattered benign-appearing nodules are present. Scattered benign-appearing calcifications are present. Scattered benign-appearing lymph nodes are present. RIGHT BREAST: No significant suspicious finding. LEFT BREAST: No significant suspicious finding. RECOMMENDATIONS: ROUTINE MAMMOGRAM AND CLINICAL EVALUATION IN 12 MONTHS. PLEASE NOTE: A NORMAL MAMMOGRAM DOES NOT EXCLUDE THE POSSIBILITY OF BREAST CANCER. A CLINICALLY SUSPICIOUS PALPABLE LUMP SHOULD BE BIOPSIED. Dictated by: Suraj Snow MD on 08/01/2024 at 12:40 Approved by: Suraj Snow MD on 08/01/2024 at 12:41
--- OUTSIDE RECORDS SUMMARY | 2024-08-01 10:20 | XMS_ITS | CCD ---
Author Organization [facility] Care Team Providers Care Auto Body Mechanic Name Role Phone Unavailable Primary Care Provider Unavailabl e LAKSHMIPATHY ., NARENDRANATH Consulting Demi vailable HALKER ., ELIDAI Attending Unavailable HALKER ., ELIDIA Admitting Unavailable BALL, DR FLEMING Primary Care Unavailable LAKSHMIPATHY ., NARENDRANATH Consulting Demi vailable LAKSHMIPATHY ., NARENDRANATH Attending Demi vailable LAKSHMIPATHY ., NARENDJUAN DAVIDATH Admitting Demi vailable DR JORDAN AVITIA Primary Care Unavailable LAKSHMIPATHY ., NARENDRANATH Consulting [...] ., NARENDRANATH Admitting Demi vailable DR JORDAN AVITIA Primary Care Unavailable GREWAL . NEHA Consulting Unavailable LAKSHMIPATHY ., NARENDRANATH Admitting Demi vailable LAKSHMIPATHY ., SIMIATH Attending Demi vailable ADORE, DR FLEMING Primary Care Unavailable SAMUEL ., DR ZACARIAS Garner Attending Unavailable SAMUEL ., DR ZACARIAS Garner Admitting Unavailable BALL, DR FLEMING Primary Care [...] MONE, DR BONNY Jain Consulting Unavailable APLING, EULA Perez Admitting Unavailable APLING, EULA Perez Attending Unavailable APLING, EULA Perez Consulting Unavailable NEHA MAN Attending Unavailable NEHA MAN Admitting Unavailable ADORE, DR FLEMING Primary Care Unavailable Jordan Avitia Unavailable Hiwot PAYAN, Jessica Tavarez Attending Unavailable Unavailable Primary Care Provider Unavaildragan e HABBOUB, JORGE Attending Unavailable HABBOUB, JORGE Admitting Unavailable LUCIANO BOSCH Consulting UnavailLITZY Graham Referring Unavailable LITZY TODD Attending Unavailable GEORGETTE SANTOS Referring Unavailable HABBOUB, JORGE Referring Unavailable HABBOUB, JORGE Attending Unavailable LITZY TODD Attending Unavailable SELF Referring Unavailable GISELLE, JORGE Attending Unavailable Jordan Avitia MD Primary Care Provider JORDAN AVITIA Primary Care Unavailable ROSSANA MILLER Referring Unavailable JORDAN AVITIA Primary Care Unavailable ROSSANA MILLER Admitting Unavailable ROSSANA MILLER Attending Unavailable Jordan Avitia DO Primary Care Provider JULIANNA HALL Attending Unavailable APLING, EULA Perez Attending Unavailable BRADROSSANA RICHMOND Attending Unavailable APLING, EULA Perez Attending Unavailable APLING, EULA Perez Attending Unavailable Allergies Allergy Classification Reported Allergen(s) Allergy Type Date of Onset Reaction(s) Facility (5 sources) patient allergy list reviewed by nurse or physicia Propensity to adverse reactions 6 Comment:Done Lamsa Other (5 sources) Allergies Reconciled Propensity to adverse reactions Unknown Lamsa Other Medications Current Medications Medication Drug Class(es) Dates Sig (Normalized) Sig (Original) acetaminophen 325 mg / HYDROcodone bitartrate 5 mg oral tablet (1 source) Opioid Agonist Start: 05-14-2024 End: 05-17-2024 take 1 tablet by mouth every six hours for pain HYDROcodone-acet aminophen (Biloxi) 5-325 MG tablet Indications: Trigger finger of right thumb Take 1 tablet by mouth every 6 (six) hours if needed for severe pain for up to 3 days 12 tablet 05/14/2024 05/17/2024 Active acetaminophen 325 mg / oxyCODONE hydrochloride 5 mg oral tablet (1 source) Opioid Agonist Start: 12-16-2023 End: 12-23-2023 take 1 tablet by mouth every six hours as needed for pain oxyCODONE-acetam inophen (PERCOCET) 5-325 mg tablet Indications: S/P lumbar spinal fusion Take 1 tablet by mouth every 6 hours as needed for pain for up to 7 days. 28 tablet 0 12/16/2023 12/23/2023 Active amLODIPine 5 mg oral tablet (20 sources) Dihydropyridine Calcium Channel Lea Start: 09-02-2023 End: 02-08-2024 amLODIPine (Norvasc) 5 MG tablet Daily 09/02/2023 Active Start: 01-27-2023 take 1 tablet [...] 1 TABLET BY JASON TH ONCE EVERYDAY baclofen 10 mg oral tablet (20 sources) gamma-Aminobutyric Acid-ergic Agonist Start: 04-28-2023 End: 05-13-2024 take 0.5 tablet by mouth once daily in the morning, then take 1-2 tablets by mouth at bedtime baclofen (Lioresal) 10 MG tablet TAKE 1/2 TABLET BY MOUTH EVERY MORNING AND AFTERNOON AND 1 TO 2 TABLETS AT BEDTIME 04/28/2023 05/13/2024 Discontinued (Med list cleanup) take 1 tablet by jason th every twenty-four hours Baclofen 10 MG 1 tablet as needed Orally Once a day Active take 2 tablets by mo [facility] once daily at bedtime Baclofen 10 MG [...] Once a day Active Calcium Carbonate-Vitamin D2 (3 sources) Start: 02-08-20 take 1 tablet by mouth [...] on above: Take 1 capsule by [facility] twice daily for 90 days. Take 1 capsule by [facility] two times a day for 90 days. ibuprofen 200 mg oral tablet (20 sources) Nonsteroidal Anti-inflammatory Drug Start: 02-08-2024 ibuprofen 200 MG tablet Once 02/08/2024 Active Start: 02-08-2024 take 400 mg by mouth once Ibup rofen Active 400 MG PO Once February 08, 2024 12:00am Start: 09-26-2021 take 2 tablets by [facility] once daily at mealtime as needed Ibuprofen 200 MG 2 tablets with food or milk as needed Orally once a day Sep, Active Start: 09-26-2021 Ibuprofen 200M G Ibuprofen( 200MG Oral as needed ) Active -Hx Entry Oral as needed Sep, Active take 1 tablet by [facility] every six hours as needed for pain ibuprofen (MOTRIN) 400 mg tablet Take 1 tablet (400 mg total) by mouth every 6 (six) hours as needed for pain. Active Multi For Her - (5 sources) Multi For Her - as directed Orally Active MULTI-VITAMIN ORAL (12 sources) MULTI-VITAMIN OR AL Take by mouth once daily. 0 Active Comment on above: Take by mouth once d aily. Multiple Vitamins-Minerals (Multi For Her 50+) tablet (11 sources) Multiple Vitamins-Minerals (Multi For Her 50+) tablet as directed Orally Active keaognpo-dbzo-SQ-calci um &mins (THERAGRAN-M) 9 mg iron-400 mcg tablet (1 source) uyweqqdc-uhhx-TV -calci um &mins (THERAGRAN-M) 9 mg iron-400 mcg tablet Take 1 tablet by mouth in the morning. Active Vasxvmtfhwxm-Kb-Thwa-M inerals (3 sources) Start: 02-08-2024 Xwhooxjkpyxb-Lh-Vsxe-M inerals Active TAB PO February 08, 2024 [...] (20 sources) Angiotensin 2 Receptor Lea Start: 3 End: 4 take 1 tablet by mouth in the morning olmesartan (BENIcar) 20 MG tablet Take 20 mg by mouth in the morning. 04/20/2023 Active Comment on above: TAKE 1 TABLET BY JASON TH 1 DAILY paxlovid (300/100) 20 x 150 mg & 10 x 100mg tablet therapy pack (2 sources) Start: 3 Paxlovid (300/100) 20 x 150 MG & 10 x 100MG as directed Orally bid for 5 days Jun, Active Completed/Discontinued Medications Medication Drug Class(es) Dates Sig (Normalized) Sig (Original) cholecalciferol 0.125 mg oral capsule (5 sources) Vitamin D Start: 08-28-2022 End: 11-15-2023 take 1 capsule by mouth three times weekly Cholecalciferol, Vitamin D3, 125 mcg (5,000 unit) cap Take 5,000 Units by mouth three times a week. 0 08/28/2022 11/15/2023 Discontinued Comment on above: Take 5,000 Units by mouth three times a week. DAILY-SAÚL, WITH FOLIC ACID, 400 mcg (5 sources) Start: 07-19-2022 End: 11-15-2023 take 1 tablet by mouth once daily [...] capsule (5 sources) Nitrofuran Antibacterial Start: 08-14-19 17 take 1 capsule by mouth every twelve hours Macrobid 100 MG 1 capsule with food Orally every 12 hrs for 7 day(s) Aug, Not-Taking rosuvastatin calcium 5 mg oral tablet (6 sources) HMG-CoA Reductase Inhibitor Start: 09-04-19 24 End: 11-15-19 24 rosuvastatin (CRESTOR) 5 mg tablet Start: 05-11-2023 take 1 tablet by jason th every twenty-four hours Rosuvastatin Calcium 5 MG [...] deformity, not elsewhere classified, right ankle] Episodic Diabetes mellitus without complication (12 sources) Impaired fasting glycemia; Translations: [Impaired fasting glucose] Onset: 4 02-08-2024 Episodic Disorders of lipid metabolism (20 sources) Pure hypercholesterolemia; Translations: [Familial hypercholesterolemia] Onset: 4 Chronic E Codes: Adverse effects of medical drugs (1 source) Adverse effect of other antihypertensive drugs, initial encounter Episodic Esophageal disorders (20 sources) Gastro-esophageal reflux disease with esophagitis; Translations: [Gastroesophageal reflux disease with esophagitis without hemorrhage] Onset: 4 02-07-2024 Chronic Essential hypertension (20 sources) Essential [...] Onset: 4 Episodic Other connective tissue disease (1 source) Triggering of digit; Translations: [Trigger finger, unspecified finger] 05-07-2024 Episodic Other connective tissue disease (1 source) Trigger finger, unspecified finger; Translations: [Trigger finger (acquired)] 05-07-2024 Episodic Other connective tissue disease (4 sources) Pain in right thumb; Translations: [Pain in right finger(s)] 05-13-2024 Episodic Other connective tissue disease (5 sources) Trigger thumb of right hand; Translations: [Trigger thumb, right thumb] 05-13-2024 Episodic Other eye disorders (12 sources) Posterior vitreous detachment of right eye; Translations: [Vitreous degeneration, right eye] Onset: 3 05-08-2023 Chronic Other female genital disorders (10 sources) Other specified conditions associated with female genital organs and menstrual cycle; Translations: [Oth cond assoc w female genital organs and menstrual cycle] Episodic Other gastrointestinal disorders (1 source) Drug induced constipation Episodic Other gastrointestinal disorders (3 sources) Oropharyngeal dysphagia; Translations: [Dysphagia, oropharyngeal phase] Episodic Other gastrointestinal disorders (1 source) Dysphagia, oropharyngeal phase Episodic Other liver diseases (11 sources) Steatosis of liver; Translations: [Fatty (change of) liver, not elsewhere classified] Onset: 4 02-08-2024 Chronic Other liver diseases (11 sources) Inflammatory disease of liver; Translations: [Inflammatory liver disease, unspecified] Onset: 4 02-08-2024 Chronic Other liver diseases (2 sources) Enzyme level - finding; Translations: [Transaminasemia] 02-08-2024 Episodic Other nervous system disorders (5 sources) Other chronic pain; Translations: [OTHER CHRONIC PAIN] Onset: 3 Chronic Other nervous system disorders (2 sources) Carpal tunnel syndrome of right wrist; Translations: [Carpal tunnel syndrome, right upper limb] 06-17-2024 Chronic Other non-traumatic joint disorders (1 source) [...] Chronic Other nutritional; endocrine; and metabolic disorders (6 sources) Obese class I; Translations: [Obesity, unspecified] Onset: 4 12-16-2023 Chronic Other screening for suspected conditions (not mental disorders or infectious disease) (7 sources) Encounter for screening mammogram for malignant neoplasm of breast; Translations: [Other screening mammogram] Onset: 3 Episodic Residual codes; unclassified (1 source) Pain; Translations: [Pain, unspecified] 11-15-2023 Episodic Residual codes; unclassified (1 source) Pain, unspecified; Translations: [Pain, unspecified] Onset: 4 Episodic Retinal detachments; defects; vascular occlusion; and retinopathy (18 sources) Hypertensive retinopathy; Translations: [Hypertensive retinopathy, bilateral] Onset: 3 Chronic Spondylosis; intervertebral disc disorders; [...] reflux disease with esophagitis without hemorrhage] Other connective tissue disease (17 sources) History of lumbar fusion; Translations: [Arthrodesis status] Onset: 12-15-2023 12-28-2023 Episodic Residual codes; unclassified (1 source) Family [...] Test Name Value Interpretation Reference Range Facility Basophils Auto (Bld) [#/Vol] on 04-11-2024 Basophils (Bld) [#/Vol] 0.0 10 3/uL 0.0-0.1 [facility] Basophils/100 WBC Auto (Bld) on 04-11-2024 Basophils/100 WBC (Bld) 0.6 % 0.2-2.0 [facility] Diagnostic impression [Inter pretation] in Specimen Narrativeon 04-11-2024 Diagnostic impression Molgen Buck (Unsp spec) [Interp] Comment . [facility] Comment on above: Not infected with HC V unless early or acute infection issuspected (which may be delayed in an immunocompromisedindividual), or other evidence exists to indicate HCVinfection.Performed at: [facility] [address] [id number] Director: Kiet Godwin PhD, Phone: [phone] Eosinophils/100 WBC Auto (Bl d)on 04-11-2024 Eosinophils/100 WBC (Bld) 2.2 % 0.9-7.0 [facility] Erythrocyte distribution wid th Auto (RBC) [Ratio]on 04-11-2024 Erythrocyte distribution width (RBC) [Ratio] 12.9 % 11.0-15.0 [facility] Globulin Calc (S) [Mass/Vol] on 04-11-2024 Globulin (S) [Mass/Vol] 3.5 g/dL [facility] Hematocrit Auto (Bld) [Volum e fraction]on 04-11-2024 Hematocrit (Bld) [Volume fraction] 38.3 % 36.0-48.0 [facility] Hemoglobin [Mass/volume] in Bloodon 04-11-2024 Hemoglobin (Bld) [Mass/Vol] 13.0 g/dL 12.0-16.0 [facility] Hepatitis A virus Ab [Presen ce] in Serum by Immunoassayon 04-11-2024 HAV Ab IA Ql (S) Negative Negative [facility] Comment on above: Comment: The HAV tot al antibody assay detects both IgG andIgM but does not differentiate between them. A negativeresult suggests susceptibility to infection. A positiveresult could be due to vaccination, previously resolvedinfection or active infection. Testing for HAV IgM shouldbe performed if active HAV infection is suspected. [facility] that will automatically reflex positive HAVtotal antibody results to IgM (e.g., panel #[id number] HAVAntibody w/ Rfx).Performed at: [facility] [place] [id number] Director: Kiet Godwin PhD, Phone: [phone] Laboratory - Chemistry and C hemistry - challengeon 04-11-2024 Albumin [Mass/Vol] 3.5 g/dL 3.4-5.0 [facility] ALP [Catalytic activity/Vol] 106 U/L 46-116 [facility] ALT [Catalytic activity/Vol] 49 U/L 14-59 [facility] AST [Catalytic activity/Vol] 36 U/L 15-37 [facility] Bilirubin [Mass/Vol] 0.5 mg/dL 0.2-1.0 [facility] Bilirubin.direct [Mass/Vol] 0.1 mg/dL 0.0-0.2 [facility] Ferritin [Mass/Vol] 308.0 ng/mL High 8.0-252.0 [facility] Protein [Mass/Vol] 7.0 g/dL 6.4-8.2 [facility] Laboratory - Hematology and Cell countson 04-11-2024 Immature granulocytes/100 WBC (Bld) 0.4 % 0.0-0.5 [facility] Leukocytes [#/volume] correc larry for nucleated erythrocytes in Blood by Automated counon 04-11-2024 WBC corrected for nucl RBC Auto (Bld) [#/Vol] 4.9 10 3/uL 4.0-11.0 [facility] Lymphocytes Auto (Bld) [#/Vo l]on 04-11-2024 Lymphocytes (Bld) [#/Vol] 1.8 10 3/uL 1.2-3.8 [facility] Lymphocytes/100 WBC Auto (Bl d)on 04-11-2024 Lymphocytes/100 WBC (Bld) 36.9 % 20.5-60.0 [facility] MCH Auto (RBC) [Entitic mass ]on 04-11-2024 MCH (RBC) [Entitic mass] 31.2 pg 26.7-34.0 [facility] MCHC Auto (RBC) [Mass/Vol]on 04-11-2024 MCHC (RBC) [Mass/Vol] 33.9 g/dL 29.9-35.2 [facility] MCV Auto (RBC) [Entitic vol] on 04-11-2024 MCV (RBC) [Entitic vol] 91.8 fL 81.0-99.0 [facility] Monocytes Auto (Bld) [#/Vol] on 04-11-2024 Monocytes (Bld) [#/Vol] 0.4 10 3/uL 0.3-0.8 [facility] Monocytes/100 WBC Auto (Bld) on 04-11-2024 Monocytes/100 WBC (Bld) 9.0 % 1.7-12.0 [facility] Neutrophils Auto (Bld) [#/Vo l]on 04-11-2024 Neutrophils (Bld) [#/Vol] 2.5 10 3/uL 1.4-6.5 [facility] Neutrophils/100 WBC Auto (Bl d)on 04-11-2024 Neutrophils/100 WBC (Bld) 50.9 % 43.0-75.0 [facility] No Panel Informationon 04-11 Eosinophils # (Auto) 0.1 10 3/uL 0.0-0.7 [facility] Hepatitis B Core Total Antibody Negative Negative [facility] Immature Granulocyte # (Auto) 0.02 10 3/uL 0.00-0.03 [facility] Platelet mean volume Auto (B ld) [Entitic vol]on 04-11-2024 Platelet mean volume (Bld) [Entitic vol] 9.6 fL 9.5-13.5 [facility] Platelets Auto (Bld) [#/Vol] on 04-11-2024 Platelets (Bld) [#/Vol] 169 10 3/uL 150-450 [facility] RBC Auto (Bld) [#/Vol]on RBC (Bld) [#/Vol] 4.17 10 6/uL Low 4.20-5.40 [facility] Serum or plasma albumin/glob ulin mass ratioon 04-11-2024 Albumin/Globulin [Mass ratio] 1.0 {ratio} [facility] Serum or plasma free cefurox flora measurement (mass/volume)on 04-11-2024 Cefuroxime free [Mass/Vol] Negative Negative [facility] Comment on above: Performed at: [facility] [employer] [address] [id number] Director: Kiet Godwin PhD, Phone: [phone] Serum or plasma hepatitis C virus antibody signal/cutoff ratio by immunoassay (relation 04-11-2024 HCV Ab Signal/Cutoff IA [Rel units/Vol] Non-Reactive Non Reactive [facility] CNPNon 01-23-2024 CNPN Telephone (NEADFV) CHRISTIAN NOYOLA ([id number]) 1950 F Date Time Provider Department 01/23/24 JORGE DESAI NEADFV During your visit today, we recorded the following information about you: Emily Ellis 01/23/2024 1:47 PM Signed [facility] Progress Note scanned to [facility] for review and signature Debbi Brizuela RN 01/23/2024 2:26 PM Signed Printed for review and signature. Debbi Brizuela RN 01/24/2024 2:04 PM Signed Signed form faxed to number requested. Faxed verification received. Allergies As of Date: 01/23/2024 (No Known Allergies) Date Reviewed: 12/28/2023 Reviewed by: Gregorio Ellis PCNA - Fully Assessed Reason for Visit: Setup Technician - Other [3602] Prescriptions as of 01/24/2024 [...] 30-34.9 [E66.9] 12/16/2023 Encounter Status:Closed by DEBBI BRIZUELA on 01/24/24 [facility] XR LUMBAR 2V AP/LATon 2023 XR [...] Postoperative and degenerative changes, similar to prior. Shop Estimator: PSCB Transcribe Date/Time: Jan 15 2024 12:39P Dictated by : MAYITO RAMIREZ MD This examination was interpreted and the report reviewed and electronically signed by: MAYITO RAMIREZ MD on Jan 15 2024 12:42PM EST [id number] Normal [facility] XR Lumbar spine AP and Later [place] 01-15-2024 IMPRESSION: Postoperative and degenerative changes, similar to prior. Shop Estimator: LARA Transcribe Date/Time: Jan 15 2024 12:39P Dictated [...] left upper quadrant. DIVISION OF RADIOLOGY Provider, [facility] - 01/15/2024 * * *Final Report* * [...] Postoperative and degenerative changes, similar to prior. Shop Estimator: LARA Transcribe Date/Time: Jan 15 2024 12:39P Dictated by : MAYITO RAMIREZ MD This examination was interpreted and the report reviewed and electronically signed by: MAYITO RAMIREZ MD on Jan 15 2024 12:42PM EST [facility] Radiology Study observation (narrative) [facility] XR Lumbar spine AP and Later alOrdered By: Ccf Provider on 01-15-2024 [facility] CNPMagdalena [facility] CHRIST[facility] NOYOLA ([id number]) 1950 F Date Time Provider Department 01/03/24 JORGE DESAI During your visit today, we recorded the following information about you: Emily Ellis 01/03/2024 1:56 PM Signed [facility] Initial Exam report scanned to Debbi Bhagat RN 01/03/2024 4:19 PM Signed Printed for review and signature. Debbi Brizuela RN 01/05/2024 9:21 AM Signed Signed form faxed to number requested. Faxed verification received. Allergies As of Date: 01/03/2024 (No Known Allergies) Date Reviewed: 12/28/2023 Reviewed by: Gregorio Ellis PCNA - Fully Assessed Reason for Visit: Setup Technician - Other [3602] Prescriptions as of 01/05/2024 - gabapentin (NEURONTIN) [...] 30-34.9 [E66.9] 12/16/2023 Encounter Status:Closed by DEBBI [facility]ELA [facility]NSFRVW [facility] CHRISTIAN NOYOLA ([id number]) 1950 F Date Time Provider Department 12/28/23 1:00 PM LITZY TODD NSFRVW During your visit today, we recorded the following information about you: Pulse Blood pressure Weight Height 78/minute 137/64 87.3 kg 1.626 m Litzy Todd, TRIM ATTACHER.SHIP BOAT OR BARGE MATE 12/28/2023 11:49 PM Signed SPINE SURGERY FOLLOW [...] which included preparing to see the patient, [id number] patient care, completing clinical documentation, obtaining and/or reviewing separately obtained history, performing a medically appropriate examination, counseling and educating the patient/family/caregiv er, and ordering medications, tests, or procedures. SIGNATURE: Litzy Todd APRN.SHIP BOAT OR BARGE MATE PATIENT NAME: Christian Noyola DATE: December 28, 2023 TIME: 12:52 PM PAGER: Allergies As of Date: 12/28/2023 (No Known Allergies) Date Reviewed: 12/28/2023 Reviewed by: Gregorio Ellis PCNA - Fully Assessed Reason for Visit: Post Op [174] Primary Visit Diagnosis:S/P lumbar fusion [Z98.1] Order(s):CONSULT TO PHYSICAL THERAPY [9092] Order #: [id number]: 1 FUTURE XR LUMBAR LIMITED 2V AP/LAT [5019931] Order #: [id number] FUTURE Prescriptions as of 12/28/2023 - gabapentin (NEURONTIN) 300 mg capsule Take 1 capsule by mouth two times a day for 90 days. - amLODIPine (NORVASC) 5 mg tablet TAKE 1 TABLET BY MOUTH ONCE EVERYDAY - olmesartan (more content not included)... Normal [facility] CHRIST[facility] NOYOLA ([id number]) 1950 F Date Time Provider Department 12/18/23 JORGE DESAI During your visit today, we recorded the following information about you: Emily Ellis 12/18/2023 9:29 AM Signed Pt phoned reporting fever with chills on Saturday 12/16 post op. Surgery was Thursday 12/14. Please call and advise Pt phone # [phone] Vinod Morton RN 12/18/2023 11:11 AM Signed [...] Allergies) Date Reviewed: 12/16/2023 Reviewed by: Sylvia Gordon APRN.[facility] - Fully Assessed Reason for Visit: Fever [...] Status:Closed by VINOD MORTON on 12/18/23 Normal [facility] Basic metabolic 2000 panelon 12-16-2023 Anion gap [Moles/Vol] 12 mmol/L Normal 8-15 [facility] Comment on above: Order Comment: Speci men Type: BLOOD SPECIMENOrdering Facility: [facility] Address: [address] [place] [address] Performed By: #### 2 4321-2 ####[facility] LABORATORYCLIA [id number] [place] [id number] [place] Calcium [Mass/Vol] 9.0 mg/dL Normal 8.5-10.2 [facility] Comment on above: Order Comment: Speci men Type: BLOOD SPECIMENOrdering Facility: [facility] Address: [address] [place] [address] Performed By: #### 2 4321-2 ####[facility] LABORATORYCLIA [id number] [place] [id number] [place] Chloride [Moles/Vol] 105 mmol/L Normal 98-107 [facility] Comment on above: Order Comment: Speci men Type: BLOOD SPECIMENOrdering Facility: [facility] Address: [address] [place] [address] Performed By: #### 2 4321-2 ####[facility] LABORATORYCLIA [id number] [place] [address] [place] CO2 [Moles/Vol] 24 mmol/L Normal 22-30 [facility] Comment on above: Order Comment: Speci men Type: BLOOD SPECIMENOrdering Facility: [facility] Address: [address] [place] [address] Performed By: #### 2 4321-2 ####[facility] LABORATORYCLIA [id number] [place] [id number] [place] Creatinine [Mass/Vol] 0.98 mg/dL High 0.58-0.96 [facility] Comment on above: Order Comment: Speci men Type: BLOOD SPECIMENOrdering Facility: [facility] Address: [address] [place] [address] Performed By: #### 2 4321-2 ####[facility] LABORATORYCLIA [id number] [address] Creatinine and Glomerular filtration rate.predicted panel (S/P/Bld) 61 mL/min/1.73m??? Normal >=60 [facility] Comment on above: Order Comment: Speci men Type: BLOOD SPECIMENOrdering Facility: [facility] Address: [address] [place] [address] Result Comment: Annalise mated Glomerular Filtration Rate [...] actual GFR. Performed By: #### 2 4321-2 ####[facility] LABORATORYCLIA [id number] [place] [id number] [place] Glucose [Mass/Vol] 101 mg/dL High 74-99 [facility] [facility] Comment on above: Order Comment: Speci men Type: BLOOD SPECIMENOrdering Facility: [facility] Address: [address] [place] [address] Result Comment: The [place] [employer] (ADA) provides guidance for cutoff [...] Standards of Medical Care in Diabetes 2016, [employer] [employer]. Diabetes Care. 2016.39(Suppl 1). Performed By: #### 2 4321-2 ####[facility] LABORATORYCLIA [id number] [place] [address] [place] Potassium [Moles/Vol] 4.3 mmol/L Normal 3.7-5.1 [facility] Comment on above: Order Comment: Javier salamanca Type: BLOOD SPECIMENOrdering Facility: [facility] Address: [address] [place] [address] Performed By: #### 2 4321-2 ####J[facility] LABORATORYCLIA [id number] [place] [id number] [place] Sodium [Moles/Vol] 141 mmol/L Normal 136-144 [facility] Comment on above: Order Comment: Javier salamanca Type: BLOOD SPECIMENOrdering Facility: [facility] Address: [address] [place] [address] Performed By: #### 2 4321-2 ####J[facility] LABORATORYCLIA [id number] [place] [id number] [place] Urea nitrogen [Mass/Vol] 14 mg/dL Normal 7-21 [facility] Comment on above: Order Comment: Javier salamanca Type: BLOOD SPECIMENOrdering Facility: [facility] Address: [address] [place] [address] Performed By: #### 2 4321-2 ####JAIN LABORATORYCLIA [id number] [place] [id number] [place] CBC panel Auto (Bld)on 12-15 Erythrocyte distribution width (RBC) [Ratio] 12.3 % Normal 11.5-15.0 [facility] Comment on above: Order Comment: Speci men Type: BLOOD SPECIMEN [facility] Address: [address] [place] [address] Performed By: #### 5 8410-2 #### [facility] CLIA [id number] [address] [place] [address] [place] Hematocrit (Bld) [Volume fraction] 37.6 % Normal 36.0-46.0 [facility] Comment on above: Order Comment: Speci men Type: BLOOD SPECIMEN [facility] Address: [address] [place] [address] Performed By: #### 5 8410-2 #### [facility] CLIA [id number] [address] [place] [address] [place] Hemoglobin (Bld) [Mass/Vol] 12.7 g/dL Normal 11.5-15.5 [facility] Comment on above: Order Comment: Speci men Type: BLOOD SPECIMEN [facility] Address: [address] [place] [address] Performed By: #### 5 8410-2 #### [facility] CLIA [id number] [address] [place] [address] [place] MCH (RBC) [Entitic mass] 31.0 pg Normal 26.0-34.0 [facility] Comment on above: Order Comment: Speci men Type: BLOOD SPECIMEN [facility] Address: [address] [place] [address] Performed By: #### 5 8410-2 #### [facility] CLIA [id number] [address] [place] [address] [place] MCHC (RBC) [Mass/Vol] 33.8 g/dL Normal 30.5-36.0 [facility] Comment on above: Order Comment: Speci men Type: BLOOD SPECIMEN [facility] Address: [address] [place] [address] Performed By: #### 5 8410-2 #### [facility] CLIA [id number] [address] [place], [place] [address] [place] MCV (RBC) [Entitic vol] 91.7 fL Normal 80.0-100.0 [facility] Comment on above: Order Comment: Speci men Type: BLOOD SPECIMEN [facility] Address: [address] [place] [address] Performed By: #### 5 8410-2 #### [facility] [place] [id number] [address] [place] [address] [place] Nucleated RBC (Bld) [#/Vol] 10*3/uL Normal <0.01 [facility] Comment on above: Order Comment: Speci men Type: BLOOD SPECIMEN [facility] Address: [address] [place] [address] Performed By: #### 5 8410-2 #### [facility] H[facility]PITALIA [id number] [address] [place] [address] [place] Platelet mean volume (Bld) [Entitic vol] 10.0 fL Normal 9.0-12.7 [facility] Comment on above: Order Comment: Speci men Type: BLOOD SPECIMEN [facility] Address: [address] [place] [address] Performed By: #### 5 8410-2 #### [facility]ITALIA [id number] [address] [place] [address] [place] Platelets (Bld) [#/Vol] 155 10*3/uL Normal 150-400 [facility] Comment on above: Order Comment: Speci men Type: BLOOD SPECIMEN [facility] Address: [address] [place] [address] Performed By: #### 5 8410-2 #### [facility] [place] [id number] [address] [place] [address] [place] RBC (Bld) [#/Vol] 4.10 10*6/uL Normal 3.90-5.20 [facility] Comment on above: Order Comment: Speci men Type: BLOOD SPECIMEN [facility] Address: [address] [place], [place] [address] Performed By: #### 5 8410-2 #### [facility] [place] [id number] [address] [place], [place] [address] [place] WBC (Bld) [#/Vol] 6.70 10*3/uL Normal 3.70-11.00 [facility] Comment on above: Order Comment: Speci men Type: BLOOD SPECIMEN [facility] Address: [address] [place] [address] Performed By: #### 5 8410-2 #### [facility] CLIA [id number] [address] [place], [place] [address] [facility] [place] CNDSon 12-16-2023 CNDS HNO ID: [id number] Author: SYLVIA GORDON APRN.[employer]GE MATE Service: Neurosurgery Author Type: Nurse Practitioner Type: Discharge Summary Filed: 12/16/2023 14:54 Note Text: Attestation signed by Jorge Desai MD at 12/18/2023 7:48 AM Jorge Desai MD DISCHARGE SUMMARY PATIENT NAME: Christian [...] the lives of those receiving it in nitrocellulose maker use. Some people receiv (more content not included)... [facility] THERAPY [facility], [place] 12-16-2023 THERAPY HNO ID: [id number] Author: NICHOLAS CLARKE, PT Service: Physical Therapy Author Type: Physical Therapist Type: Therapy (PT/OT/Speech/Resp) Filed: 12/16/2023 10:04 Note Text: Physical Therapy Evaluation Summary SERVICE DATE: 12/16/2023 SERVICE TIME: 936 to 952 ROOM: [id number] PT 6 Clicks Score: 22 Discharge Readiness: [...] Walker- Standard, Elevated Toilet Seat, Lift Chair, Machine Folder PRIOR FUNCTIONAL LEVEL Within Functional Limits IND w/ ADL's and IADL's +drives. Ambulated w/o AD + no falls SUBJECTIVE Pt is pleasant and agreeable to PT THERAPY DIAGNOSIS Reduced mobility-other, Decreased activities of daily living (ADL), Muscle Weakness (generalized), Difficulty walking-musculoskeleta l TREATMENT INTERVENTIONS Evaluation, Gait Training (43708) Timed Code Treatment (minutes): 6 Skilled Treatment [...] DATE: December 16, 2023 TIME: 10:03 AM [facility] THERAPY NT HNO ID: [id number] Author: MAGALI TOSCANO, OT/L Service: ? Author Type: Occupational Therapist Type: Therapy (PT/OT/Speech/Resp) Filed: 12/16/2023 09:26 Note Text: Occupational Therapy Treatment Summary SERVICE DATE: 12/16/2023 SERVICE TIME: 853 to 919 ROOM: [place] [address] OT 6 Clicks Score: 24 DISCHARGE RECOMMENDATIONS [...] Walker- Standard, Elevated Toilet Seat, Lift Chair, Machine Folder (lift bed) PRIOR FUNCTIONAL LEVEL Within Functional Limits IND w/ ADL's and IADL's +drives. Ambulated w/o AD + no falls SUBJECTIVE pt agreeable to therapy and would like to go home today COGNITION THERAPY DIAGNOSIS Reduced mobility-other, Decreased activities of daily living (ADL) TREATMENT INTERVENTIONS Evaluation, Self Prison Management (99586) Timed Code Treatment (minutes): 11 Skilled Treatment Time (minutes): 26 TRAINING AND EDUCATION PROVIDED Activity Adaptation/Geological Specialist y Strategies, Adaptive Equipment/DME, Assistive Device Use, [...] DATE: December 16, 2023 TIME: 9:25 AM [facility] XR LUMBAR 2V AP/LATon 2023 XR [...] Variants: None. IMPRESSION: Postoperative and degenerative findings. Shop Estimator: LARA Transcribe Date/Time: Dec 16 2023 11:54A Dictated by : MARISSA GAMEZ MD This examination was interpreted and the report reviewed and electronically signed by: MARISSA GAMEZ MD on Dec 16 2023 11:56AM EST [id number] [facility] ANES POSTPROC EVALon 024 ANES POSTPROC EVAL HNO ID: [id number] Author: SASHA SONG MD Service: Anesthesiology Author Type: Anesthesiologist Type: Anesthesia Postprocedure Evaluation Filed: 12/15/2023 17:42 Note Text: POST ANESTHESIA EVALUATION NOTE : 1950 Procedure Summary Date: 12/15/23 Room / Location: OR / OR Anesthesia Start: 1118 Anesthesia Stop: 1354 Procedures: LATERAL INTERBODY FUSION (LIF); LUMBAR (Spine Lumbar) INSERTION INTERBODY BIOMED DEVICE(S) W/ANT INSTR ANCHORING TO DISC SPACE W/INTERBODY FUSION,EA INTERSPACE (Spine Lumbar) SPINE ALLOGRAFT (Spine Lumbar) Diagnosis: Spinal stenosis, lumbar region with neurogenic claudication (Spinal stenosis, lumbar region with neurogenic claudication [M48.062]) Surgeons: Jorge Desai MD Responsible Provider: Lu Scott MD Anesthesia Type: general ASA Status: 3 [...] December 15, 2023 TIME: 5:42 PM CSN: [id number] [facility] ANES PRE-OPon 12-15-2023 ANES PRE-OP HNO ID: [id number] Author: LU SCOTT MD Service: Anesthesiology Author Type: Physician Type: [...] and consent discussed: yes. Patient / Responsible Constitution Party agrees to proceed: yes Patient / Surrogate [...] none. Vitals Value Taken Time BP 141/73 12/15/23 0752 Pulse 71 12/15/23 0752 Resp 16 12/15/23 0752 Temp 36.7 ?C (98.1 ?F) 12/15/23 0752 SpO2 99 % 12/15/23 075 Facility-Administered Medications as of 12/15/2023 Medication Dose [...] within 48 hours of Surgery/Procedure. SIGNATURE: Lu Scott MD PATIENT NAME: Christian Noyola DATE: December 15, 2023 TIME: 11:16 AM CSN: [id number] [facility] BRIEF OP NOTon 12-15-2023 BRIEF OP NOT HNO ID: [id number] Author: JORGE DSEAI MD Service: Neurosurgery Author Type: Physician Type: Brief Op Note Filed: 12/15/2023 18:21 Note Text: BRIEF OPERATIVE / PROCEDURE NOTE LOG ID: [id number] SURGERY/PROCEDURE DATE: 12/15/2023 INCISION/PROCEDURE START TIME: 12:10 PM INCISION CLOSE/PROCEDURE END TIME: 1:35 PM SURGEON(S)/PROCEDURALI ST(S) AND CRANE HELPER(S): Surgeon(s) and Role: * Jorge Desai MD - Primary Physician Catering Director: An Bautista PA-C SURGERY/PROCEDURE(S): L3/4 LLIF ANESTHESIA: General FINDINGS: Appropriate decompression and hardware placement ESTIMATED BLOOD LOSS: 25 mls SPECIMENS: None COMPLICATIONS: None CLOSURE TECHNIQUE: Primary PRE-OP/PRE-PROCEDURE DIAGNOSIS: L3/4 lumbar stenosis with neurogenic claudication, degenerative scoliosis POST-OP/POST-PROCEDURE DIAGNOSIS: L3/4 lumbar stenosis with neurogenic claudication, degenerative scoliosis SIGNATURE: Jorge Desai MD PATIENT NAME: Christian Noyola DATE: December 15, 2023 TIME: 1:17 PM [facility] CONSULTon 12-15-2023 CONSULT HNO ID: [id number] Author: LUCIANO BOSCH MD Service: General Internal [...] mg injection (Toradol (more content not included)... [facility] OPERATIVE NOon 12-15-2023 OPERATIVE NO HNO ID: [id number] Author: JORGE DESAI MD Service: Neurosurgery Author Type: Physician Type: Operative Report Filed: 12/15/2023 18:44 Note Text: OPERATIVE/PROCEDURE REPORT LOG ID: [id number] SURGERY/PROCEDURE DATE: 12/15/2023 INCISION/PROCEDURE START TIME: 12:10 PM INCISION CLOSE/PROCEDURE END TIME: 1:35 PM SURGEON(S)/PROCEDURALI ST(S) AND CRANE HELPER(S): Surgeon(s) and Role: * Jorge Desai MD - Primary Physician Catering Director: An Bautista PA-C SURGERY/PROCEDURE(S): L3/4 LLIF ANESTHESIA: [...] Implant Name Type Inv. Item Serial No. Voltage Tester Lot No. LRB No. Used Action SUBSTITUTE MASTERGRAFT CALCIUM PHOSPHATE COLLAGEN BONE GRAFT VOID FILLER - [id number] Cement / Putty SUBSTITUTE MASTERGRAFT CALCIUM PHOSPHATE COLLAGEN BONE GRAFT VOID FILLER [employer] SOFAMOR [id number] N/A 1 Implanted GRAFT INFUSE 14MM SMALL BOVINE COLLAGEN RHBMP-2 23MM BONE ABSORBABLE SPONGE - [id number] Bone GRAFT INFUSE 14MM SMALL BOVINE COLLAGEN RHBMP-2 23MM BONE ABSORBABLE SPONGE [employer] NovadiolAMMURPHY TAPIA [id number] N/A 1 Implanted KNIFE [employer] SURGICAL ANNULOTOMY SPINE Accessories [employer] [id number] N/A 1 Non-Implant FELICIA SPACER 8-15MM 20MM X 55MM 6DEG Implant [employer] N/A 1 Implanted SELF DRILLING SCREW VARIABLE ANGLE 5.5MM 40MM Implant [employer] N/A 2 Implanted DRAINS: None COMPLICATIONS: None CLOSURE TECHNIQUE: Primary PARTICIPATION IN SURGERY/PROCEDURE: Jorge Desai and An Bautista performed the opening, decompression, hardware placement and closure together. SIGNATURE: Jorge Desai MD PATIENT NAME: Christian Noyola DATE: December 15, 2023 TIME: 6:21 PM [facility] XR LUMBAR 2V AP/LATon 2023 XR [...] Intraoperative examination for surgical planning and documentation. Shop Estimator: PSCB Transcribe Date/Time: Dec 15 2023 2:50P Dictated by : JEANNE MOELLER DO This examination was interpreted and the report reviewed and electronically signed by: JEANNE MOELLER DO on Dec 15 2023 2:51PM EST [id number] [facility] XR VERIFY LEVEL [id number] 12-15-2023 XR VERIFY LEVEL L-SPINE-NB * * [...] phone and video during the surgical procedure. Shop Estimator: LARA Transcribe Date/Time: Dec 15 2023 12:35P Dictated by : JEANNE MOELLER DO This examination was interpreted and the report reviewed and electronically signed by: JEANNE MOELLER DO on Dec 15 2023 12:39PM EST [id number] Normal [facility] Bacteria Ur Culton Bacteria identified Cx Nom (U) CULTURE, URINE: No growth (<1,000 CFU/ml) Normal [facility] Comment on above: Performed By: #### 6 30-4 ####[facility] LABCLIA [id number] [place] [address] [place] CBC W Auto Differential pane l (Bld)on 11-15-2023 Basophils (Bld) [#/Vol] 0.03 10*3/uL [facility] Basophils/100 WBC (Bld) 0.6 % [facility] Differential cell count method Nom (Bld) Auto [facility] Eosinophils (Bld) [#/Vol] 0.10 10*3/uL [facility] Eosinophils/100 WBC (Bld) 2.0 % [facility] Erythrocyte distribution width (RBC) [Ratio] 12.2 % 11.5 - 15.0 % [facility] Hematocrit (Bld) [Volume fraction] 43.3 % 36.0 - 46.0 % [facility] Hemoglobin (Bld) [Mass/Vol] 14.0 g/dL 11.5 - 15.5 g/dL [facility] Immature granulocytes (Bld) [#/Vol] NINF [facility] Immature granulocytes/100 WBC (Bld) 0.2 % [facility] Lymphocytes (Bld) [#/Vol] 1.59 10*3/uL [facility] Lymphocytes/100 WBC (Bld) 32.6 % [facility] MCH (RBC) [Entitic mass] 30.3 pg 26.0 - 34.0 pg [facility] MCHC (RBC) [Mass/Vol] 32.3 g/dL 30.5 - 36.0 g/dL [facility] MCV (RBC) [Entitic vol] 93.7 fL 80.0 - 100.0 fL [facility] Monocytes (Bld) [#/Vol] 0.49 10*3/uL [facility] Monocytes/100 WBC (Bld) 10.0 % [facility] Neutrophils (Bld) [#/Vol] 2.66 10*3/uL [facility] Neutrophils/100 WBC (Bld) 54.6 % [facility] Nucleated RBC (Bld) [#/Vol] [facility] Nucleated RBC/100 WBC (Bld) [Ratio] 0.0 % /100 WBC [facility] Platelet mean volume (Bld) [Entitic vol] 10.2 fL 9.0 - 12.7 fL [facility] Platelets (Bld) [#/Vol] 211 10*3/uL [facility] RBC (Bld) [#/Vol] 4.62 10*6/uL 3.90 - 5.2 0 m/uL [facility] WBC (Bld) [#/Vol] 4.88 10*3/uL [facility] Basophils (Bld) [#/Vol] 0.03 10*3/uL Normal <0.11 [facility] Comment on above: Order Comment: Speci men Type: BLOOD SPECIMENOrdering Facility: [facility] Address: [address] [place] [address] Performed By: #### 5 7021-8 ####[facility] LABCLIA [id number] [address] [place] Basophils/100 WBC (Bld) 0.6 % Normal [facility] Comment on above: Order Comment: Speci men Type: BLOOD SPECIMENOrdering Facility: [facility] Address: [address] [place] [address] Performed By: #### 5 7021-8 ####[facility] LABCLIA [id number] [place] [address] [place] Differential cell count method Nom (Bld) Auto Normal [facility] Comment on above: Order Comment: Speci men Type: BLOOD SPECIMENOrdering Facility: [facility] Address: [address] [place] [address] Performed By: #### 5 7021-8 ####[facility] LABCLIA [id number] [place] [address] [place] Eosinophils (Bld) [#/Vol] 0.10 10*3/uL Normal <0.46 [facility] Comment on above: Order Comment: Speci men Type: BLOOD SPECIMENOrdering Facility: [facility] Address: [address] [place] [address] Performed By: #### 5 7021-8 ####[facility] LABCLIA [id number] [place] [address] [place] Eosinophils/100 WBC (Bld) 2.0 % Normal [facility] Comment on above: Order Comment: Speci men Type: BLOOD SPECIMENOrdering Facility: [facility] Address: [address] [place] [address] Performed By: #### 5 7021-8 ####[facility] LABCLIA [id number] [place] [address] [place] Erythrocyte distribution width (RBC) [Ratio] 12.2 % Normal 11.5-15.0 [facility] Comment on above: Order Comment: Speci men Type: BLOOD SPECIMENOrdering Facility: [facility] Address: [address] [place] [address] Performed By: #### 5 7021-8 ####[facility] LABCLIA [id number] [place] [address] [place] Hematocrit (Bld) [Volume fraction] 43.3 % Normal 36.0-46.0 [facility] Comment on above: Order Comment: Speci men Type: BLOOD SPECIMENOrdering Facility: [facility] Address: [address] [place] [address] Performed By: #### 5 7021-8 ####[facility] LABCLIA [id number] [place] [address] [place] Hemoglobin (Bld) [Mass/Vol] 14.0 g/dL Normal 11.5-15.5 [facility] Comment on above: Order Comment: Speci men Type: BLOOD SPECIMENOrdering Facility: [facility] Address: [address] [place] [address] Performed By: #### 5 7021-8 ####[facility] LABCLIA [id number] [place] [address] [place] Immature granulocytes (Bld) [#/Vol] 10*3/uL Normal <0.10 [facility] Comment on above: Order Comment: Speci men Type: BLOOD SPECIMENOrdering Facility: [facility] Address: [address] [place] [address] Performed By: #### 5 7021-8 ####[facility] LABCLIA [id number] [place] [address] [place] Immature granulocytes/100 WBC (Bld) 0.2 % Normal [facility] Comment on above: Order Comment: Speci men Type: BLOOD SPECIMENOrdering Facility: [facility] Address: [address] [place] [address] Performed By: #### 5 7021-8 ####[facility] LABCLIA [id number] [place] [address] [place] Lymphocytes (Bld) [#/Vol] 1.59 10*3/uL Normal 1.00-4.00 [facility] Comment on above: Order Comment: Speci men Type: BLOOD SPECIMENOrdering Facility: [facility] Address: [address] [place] [address] Performed By: #### 5 7021-8 ####[facility] LABIA [id number] [place] [address] [place] Lymphocytes/100 WBC (Bld) 32.6 % Normal [facility] Comment on above: Order Comment: Speci men Type: BLOOD SPECIMENOrdering Facility: [facility] Address: [address] [place] [address] Performed By: #### 5 7021-8 ####[facility] LABIA [id number] [place] [address] [place] MCH (RBC) [Entitic mass] 30.3 pg Normal 26.0-34.0 [facility] Comment on above: Order Comment: Speci men Type: BLOOD SPECIMENOrdering Facility: [facility] Address: [address] [place] [address] Performed By: #### 5 7021-8 ####[facility] LABIA [id number] [place] [address] [place] MCHC (RBC) [Mass/Vol] 32.3 g/dL Normal 30.5-36.0 [facility] Comment on above: Order Comment: Speci men Type: BLOOD SPECIMENOrdering Facility: [facility] Address: [address] [place] [address] Performed By: #### 5 7021-8 ####[facility] [id number] [place] [address] [place] MCV (RBC) [Entitic vol] 93.7 fL Normal 80.0-100.0 [facility] Comment on above: Order Comment: Speci men Type: BLOOD SPECIMENOrdering Facility: [facility] Address: [address] [place] [address] Performed By: #### 5 7021-8 ####[facility] LABCLIA [id number] [place] [address] [place] Monocytes (Bld) [#/Vol] 0.49 10*3/uL Normal <0.87 [facility] Comment on above: Order Comment: Speci men Type: BLOOD SPECIMENOrdering Facility: [facility] Address: [address] [place] [address] Performed By: #### 5 7021-8 ####[facility] LABCLIA [id number] [place] [address] [place] Monocytes/100 WBC (Bld) 10.0 % Normal [facility] Comment on above: Order Comment: Speci men Type: BLOOD SPECIMENOrdering Facility: [facility] Address: [address] [place] [address] Performed By: #### 5 7021-8 ####[facility] LABCLIA [id number] [place] [address] [place] Neutrophils (Bld) [#/Vol] 2.66 10*3/uL Normal 1.45-7.50 [facility] Comment on above: Order Comment: Speci men Type: BLOOD SPECIMENOrdering Facility: [facility] Address: [address] [place] [address] Performed By: #### 5 7021-8 ####[facility] LABCLIA [id number] [place] [address] [place] Neutrophils/100 WBC (Bld) 54.6 % Normal [facility] Comment on above: Order Comment: Speci men Type: BLOOD SPECIMENOrdering Facility: [facility] Address: [address] [place] [address] Performed By: #### 5 7021-8 ####[facility] LABCLIA [id number] [place] [address] [place] Nucleated RBC (Bld) [#/Vol] 10*3/uL Normal <0.01 [facility] Comment on above: Order Comment: Speci men Type: BLOOD SPECIMENOrdering Facility: [facility] Address: [address] [place] [address] Performed By: #### 5 7021-8 ####[facility] LABIA [id number] [place] [address] [place] Nucleated RBC/100 WBC (Bld) [Ratio] 0.0 /100 WBC Normal [facility] Comment on above: Order Comment: Speci men Type: BLOOD SPECIMENOrdering Facility: [facility] Address: [address] [place] [address] Performed By: #### 5 7021-8 ####[facility] LABIA [id number] [place] [address] [place] Platelet mean volume (Bld) [Entitic vol] 10.2 fL Normal 9.0-12.7 [facility] Comment on above: Order Comment: Speci men Type: BLOOD SPECIMENOrdering Facility: [facility] Address: [address] [place] [address] Performed By: #### 5 7021-8 ####[facility] LABIA [id number] [place] [address] [place] Platelets (Bld) [#/Vol] 211 10*3/uL Normal 150-400 [facility] Comment on above: Order Comment: Speci men Type: BLOOD SPECIMENOrdering Facility: [facility] Address: [address] [place] [address] Performed By: #### 5 7021-8 ####[facility] LABIA [id number] [place] [address] [place] RBC (Bld) [#/Vol] 4.62 10*6/uL Normal 3.90-5.20 [facility] Comment on above: Order Comment: Speci men Type: BLOOD SPECIMENOrdering Facility: [facility] Address: [address] [place] [address] Performed By: #### 5 7021-8 ####[facility] LABCLIA [id number] [place] [address] [place] WBC (Bld) [#/Vol] 4.88 10*3/uL Normal 3.70-11.00 [facility] Comment on above: Order Comment: Speci men Type: BLOOD SPECIMENOrdering Facility: [facility] Address: [address] [place] [address] Performed By: #### 5 7021-8 ####[facility] LABCLIA [id number] [place] [address] [place] CONFIRM BLOOD TYPEon 024 ABO O Normal [facility] Comment on above: Order Comment: Speci men Type: BLOOD SPECIMEN [facility] Address: [address] [place] [address] Performed By: #### C ONABO #### [facility] CLIA [id number] [address] [place] [address] [place] Rh Nom (Bld) Positive Normal [facility] Comment on above: Order Comment: Speci men Type: BLOOD SPECIMEN [facility] Address: [address] [place] [address] Performed By: #### C ONABO #### CC [facility]OD [facility] CLIA [id number] [address] [place] [address] [place] Comprehensive metabolic 2000 panelon 11-15-2023 Albumin [Mass/Vol] 4.3 g/dL Normal 3.9-4.9 [facility] Comment on above: Order Comment: Speci men Type: BLOOD SPECIMEN [facility] Address: [address] [place] [address] Performed By: #### 5 0190-8, 2276-4, 96797-0 #### [facility] CLIA [id number] [address] [place] [address] [place] ALP [Catalytic activity/Vol] 116 U/L Normal 34-123 [facility] Comment on above: Order Comment: Speci men Type: BLOOD SPECIMEN [facility] Address: [address] [place] [address] Performed By: #### 5 0190-8, 6-4, 97286-7 #### [facility] CLIA [id number] [address] [place] [address] [place] ALT [Catalytic activity/Vol] 45 U/L High 7-38 [facility] Comment on above: Order Comment: Speci men Type: BLOOD SPECIMEN [facility] Address: [address] [place] [address] Performed By: #### 5 0190-8, 2275-4, 80314-5 #### [facility] CLIA [id number] [address] [place] [address] [place] Anion gap [Moles/Vol] 10 mmol/L Normal 9-18 [facility] Comment on above: Order Comment: Speci men Type: BLOOD SPECIMEN [facility] Address: [address] [place] [address] Performed By: #### 5 0190-8, 2275-4, 42247-5 #### [facility] CLIA [id number] [address] [place] [address] [place] AST [Catalytic activity/Vol] 50 U/L High 13-35 [facility] Comment on above: Order Comment: Speci men Type: BLOOD SPECIMEN [facility] Address: [address] [place] [address] Performed By: #### 5 0190-8, 2275-4, 74207-9 #### [facility] CLIA [id number] [address] [place] [address] [place] Bilirubin [Mass/Vol] 0.3 mg/dL Normal 0.2-1.3 [facility] Comment on above: Order Comment: Speci men Type: BLOOD SPECIMEN [facility] Address: [address] [place] [address] Performed By: #### 5 0190-8, 2275-10, #### [facility] CLIA [id number] [address] [place] [address] [place] Calcium [Mass/Vol] 9.9 mg/dL Normal 8.5-10.2 [facility] Comment on above: Order Comment: Speci men Type: BLOOD SPECIMEN [facility] Address: [address] [place] [address] Performed By: #### 5 0190-8, 2275-10, #### [facility] CLIA [id number] [address] [place] [address] [place] Chloride [Moles/Vol] 105 mmol/L Normal 97-105 [facility] Comment on above: Order Comment: Speci men Type: BLOOD SPECIMEN [facility] Address: [address] [place] [address] Performed By: #### 5 0190-8, 2275-10, #### [facility] CLIA [id number] [address] [place] [address] [place] CO2 [Moles/Vol] 27 mmol/L Normal 22-30 [facility] Comment on above: Order Comment: Speci men Type: BLOOD SPECIMEN [facility] Address: [address] [place] [address] Performed By: #### 5 0190-8, 2275-10, #### [facility] CLIA [id number] [address] [place], [place] [address] [place] Creatinine [Mass/Vol] 1.08 mg/dL High 0.58-0.96 [facility] Comment on above: Order Comment: Speci men Type: BLOOD SPECIMEN [facility] Address: [address] [place] [address] Performed By: #### 5 0190-8, 2276-4, 74492-1 #### [facility] CLIA [id number] [address] [place] [address] [place] Creatinine and Glomerular filtration rate.predicted panel (S/P/Bld) 54 mL/min/1.73m??? Low >=60 [facility] Comment on above: Order Comment: Javier salamanca Type: BLOOD SPECIMEN [facility] Address: [address] [place] [address] Result Comment: Annalise mated Glomerular Filtration Rate [...] actual GFR. Performed By: #### 5 0190-8, 2276-4, 50187-0 #### [facility] CLIA [id number] [address] [place] [address] [place] Glucose [Mass/Vol] 112 mg/dL High 74-99 [facility] Comment on above: Order Comment: Javier salamanca Type: BLOOD SPECIMEN [facility] Address: [address] [place] [address] Result Comment: The [place] [employer] (ADA) provides guidance for cutoff [...] Standards of Medical Care in Diabetes 2016, [place] [employer]. Diabetes Care. 2016.39(Suppl 1). Performed By: #### 5 0190-8, 2275-4, 04101-2 #### [facility] CLIA [id number] [address] [place] [address] [place] Potassium [Moles/Vol] 5.1 mmol/L Normal 3.7-5.1 [facility] Comment on above: Order Comment: Speci men Type: BLOOD SPECIMEN [facility] Address: [address] [place], [place] [address] Performed By: #### 5 0190-8, 2275-, 15053-0 #### [facility] CLIA [id number] [address] [place], [place] [address] [place] Protein [Mass/Vol] 7.7 g/dL Normal 6.3-8.0 [facility] Comment on above: Order Comment: Speci men Type: BLOOD SPECIMEN [facility] Address: [address] [place], [place] [address] Performed By: #### 5 0190-8, 2275-10, 12083-6 #### [facility] CLIA [id number] [address] [place], [place] [address] [place] Sodium [Moles/Vol] 142 mmol/L Normal 136-144 [facility] Comment on above: Order Comment: Speci men Type: BLOOD SPECIMEN [facility] Address: [address] [place] [address] Performed By: #### 5 0190-8, 2275-10, 44553-4 #### [facility] CLIA [id number] [address] [place] [address] [place] Urea nitrogen [Mass/Vol] 15 mg/dL Normal 7-21 [facility] Comment on above: Order Comment: Speci men Type: BLOOD SPECIMEN [facility] Address: [address] [place] [address] Performed By: #### 5 0190-8, 2276-4, 90305-8 #### [facility] CLIA [id number] [address] [place] [address] [place] ECG COMPLETEon 11-15-2023 ECG COMPLETE Ventricular Rate : 6 2 BPM Atrial Rate : 62 BPM P-R Interval : 154 ms QRS Duration : 72 ms Q-T Interval : 392 ms QTC Calculation(Bazett) : 397 ms Calculated P Stitzer : 47 degrees Calculated R Stitzer : 24 degrees Calculated T Stitzer : 40 degrees NORMAL SINUS RHYTHM LOW VOLTAGE QRS, CONSIDER PULMONARY DISEASE, PERICARDIAL EFFUSION, OR NORMAL VARIANT BORDERLINE ECG Confirmed by DEBBI MANN MD (65) on 12/01/2023 10:51:09 AM NAME : CHRISTIAN NOYOLA PID : [id number] : 1950 Gender : Female Race : ORD : [id number] Procedure Date : Nov 15 2023 13:16:26 [...] JORGE DESAI Acquired by : vs, Normal [facility] Ferritin SerPl-mCncon 2023 Ferritin [Mass/Vol] 431.0 ng/mL High 14.7-205.1 [facility] Comment on above: Order Comment: Speci men Type: BLOOD SPECIMEN [facility] Address: [address] [place] [address] Performed By: #### 5 0190-8, 6-4, 51618-6 #### [facility] IA [id number] [address] [place] [address] [place] HISTORY PHYSICALon HISTORY PHYSICAL HNO ID: [id number] Author: GEORGETTE SANTOS APRN.[employer] Service: ? Author Type: Nurse Practitioner Type: [...] 35 kg/m2 Non-male patient STOP-Bang Score: 3 [id number] Score: Age: 65-74 Sex: female CHF history: No Hypertension history: Yes Stroke/TIA/thromboembo lism history: No Vascular disease history: No Diabetes history: No [id number] Score: 3 ARISCAT Score: Age: 51-80 Preoperative [...] discontinuing ph (more content not included)... Normal [facility] Iron and Iron binding capaci ty panelon 11-15-2023 Iron [Mass/Vol] 71 ug/dL Normal 41-186 [facility] Comment on above: Order Comment: Speci men Type: BLOOD SPECIMEN [facility] Address: [address] [place] [address] Performed By: #### 5 0190-8, 6-4, 95350-3 #### [facility] CLIA [id number] [address] [place] [address] [place] Iron binding capacity [Mass/Vol] 256 ug/dL Normal 232-386 [facility] Comment on above: Order Comment: Speci men Type: BLOOD SPECIMEN [facility] Address: [address] [place] [address] Performed By: #### 5 0190-8, 2275-, 21157-4 #### [facility] CLIA [id number] [address] [place] [address] [place] Iron/TIBC [Molar ratio] 27.7 % Normal 15.0-57.0 [facility] Comment on above: Order Comment: Speci men Type: BLOOD SPECIMEN [facility] Address: [address] [place] [address] Performed By: #### 5 0190-8, 2275-4, 98124-8 #### [facility] CLIA [id number] [address] [place] [address] [place] TYPE AND SCREEN,30 DAYon ABO O Normal [facility] Comment on above: Order Comment: Speci men Type: BLOOD SPECIMEN [facility] Address: [address] [place] [address] Performed By: #### T [id number] #### [facility] CLIA [id number] [address] [place] [address] [place] HISTORICAL AB SCR STATUS Negative Normal [facility] Comment on above: Order Comment: Speci men Type: BLOOD SPECIMEN [facility] Address: [address] [place] [address] Performed By: #### T [id number] #### [facility] CLIA [id number] [address] [place] [address] [place] Rh Nom (Bld) Positive Normal [facility] Comment on above: Order Comment: Speci men Type: BLOOD SPECIMEN [facility] Address: [address] [place] [address] Performed By: #### T SCR30 #### [facility] CLIA [id number] [address] [place] [address] [place] URINALYSIS, REFLEX MICROSCOP ICon 11-15-2023 Bilirubin Ql (U) Negative Normal Negative [facility] Comment on above: Order Comment: Speci men Type: URINE SPECIMEN [facility] Address: [address] [place] [address] Performed By: #### L [id number] #### [facility] CLIA [id number] [address] [place] [address] [place] Clarity (Unsp spec) Clear Normal Clear [facility] Comment on above: Order Comment: Speci men Type: URINE SPECIMEN [facility] Address: [address] [place] [address] Performed By: #### L [id number] #### [facility] CLIA [id number] [address] [place] [address] [place] Color (U) Yellow Normal Yellow [facility] Comment on above: Order Comment: Speci men Type: URINE SPECIMEN [facility] Address: [address] [place] [id number] Performed By: #### L [id number] #### [facility] CLIA [id number] [address] [place] [address] [place] Glucose Test strip (U) [Mass/Vol] Negative Normal Negative [facility] Comment on above: Order Comment: Speci men Type: URINE SPECIMEN [facility] Address: [address] [place] [address] Performed By: #### L [id number] #### [facility] CLIA [id number] [address] [place] [address] [place] Hemoglobin Ql (U) Negative Normal Negative [facility] Comment on above: Order Comment: Speci men Type: URINE SPECIMEN [facility] Address: [address] [place] [address] Performed By: #### L [id number] #### [facility] CLIA [id number] [address] [place] [address] [place] Ketones Ql (U) Negative Normal Negative [facility] Comment on above: Order Comment: Speci men Type: URINE SPECIMEN [facility] Address: [address] [place] [address] Performed By: #### L [id number] #### [facility] CLIA [id number] [address] [place] [address] [place] Leukocyte esterase Test strip Ql (U) Negative Normal Negative [facility] Comment on above: Order Comment: Speci men Type: URINE SPECIMEN [facility] Address: [address] [place] [address] Performed By: #### L [id number] #### [facility] CLIA [id number] [address] [place] [id number] [place] Nitrite Ql (U) Negative Normal Negative [facility] Comment on above: Order Comment: Speci men Type: URINE SPECIMEN [facility] Address: [address] [place] [address] Performed By: #### L [id number] #### [facility] CLIA [id number] [address] [place] [address] [place] pH (U) 6.5 [pH] Normal <8.5 [facility] Comment on above: Order Comment: Speci men Type: URINE SPECIMEN [facility] Address: [address] [place] [address] Performed By: #### L [id number] #### [facility] CLIA [id number] [address] [place] [address] [place] Protein (U) [Mass/Vol] Negative Normal Negative [facility] Comment on above: Order Comment: Speci men Type: URINE SPECIMEN [facility] Address: [address] [place] [address] Performed By: #### L [id number] #### [facility] CLIA [id number] [address] [place] [address] [place] Specific gravity (U) [Rel density] 1.015 Normal 1.005-1.030 [facility] Comment on above: Order Comment: Speci men Type: URINE SPECIMEN [facility] Address: [address] [place] [address] Performed By: #### L [id number] #### [facility] CLIA [id number] [address] [place] [address] [place] Urobilinogen Ql (U) 0.2 EU/dL Normal 0.2-1.0 EU/dL [facility] Comment on above: Order Comment: Speci men Type: URINE SPECIMEN [facility] Address: [address] [place] [address] Performed By: #### L [id number] #### [facility] CLIA [id number] [address] [place] [address] OF [facility] Barbie 09-05-2023 CNPN Telephone (NIQ) CHRISTIAN NOYOLA ([id number]) 1950 F Date Time Provider Department 09/05/23 JORGE DESAI During your visit today, we recorded the following information about you: Tanya Sahni 09/05/2023 9:32 AM Signed Patient called to speak with Dr Desai's nurse. She would like to accept a surgery date of MondayDecember 14. She will wait for it to show up on her MyChart. Debbi Brizuela RN 09/05/2023 9:49 AM Signed Surgery date [...] Date: 09/05/2023 (None) Encounter Status:Closed by DEBBI BRIZUELA on 09/05/23 Normal [facility] CNOVon 09-04-2023 CNOV Office Visit (NSFRVW ) CHRISTIAN NOYOLA ([id number]) 1950 F Date Time Provider Department 09/04/23 [...] has been (more content not included)... Normal [facility] MG MAMM SCREEN 3D STEFAN CADon 07-27-2022 MG MAMM SCREEN 3D STEFAN CAD Patient: CHRISTIAN NOYOLA Exam Date: 07/27/2022 : 1950 Gender:F Ordering : DR JORDAN AVITIA D.O. Admission #: [id number] Family : Order #: [id number] CLICK HERE TO VIEW EXAM RADIOLOGY REPORT [...] breast cancer at age 47. LOCATION: [facility] BREAST COMPOSITION: Heterogeneously dense,which may obscure [...] Snow MD on 07/27/2022 at 13:[address] [facility] MRI [facility] WO CONon 06-03-20 MRI [facility] WO CON EXAMINATION: MRI [facility] WO CON HISTORY: Degeneration of lumbar intervertebral [...] by: BONNY SHORE Date: 2022-06-03 11:34 Normal [facility] CBC Without Differentialon 0 10-10-2020 Erythrocyte distribution width (RBC) [Ratio] 12.9 % Normal 11.9-15.3 [facility] Comment on above: Performed By: #### C BCNOOUTREACH, OUTREACH LIPID, OUTREACH CMP #### [facility] [address] Hematocrit (Bld) [Volume fraction] 42.4 % Normal 34.0-46.4 [facility] Comment on above: Performed By: #### C BCNOOUTREACH, OUTREACH LIPID, OUTREACH CMP #### [facility] [address] Hemoglobin (Bld) [Mass/Vol] 14.9 g/dL Normal 11.8-15.4 [facility] Comment on above: Performed By: #### C BCNOOUTREACH, OUTREACH LIPID, OUTREACH CMP #### [facility] [address] [place] [id number] [place] MCH (RBC) [Entitic mass] 31.9 pg Normal 24.7-34.3 [facility] Comment on above: Performed By: #### C BCNOOUTREACH, OUTREACH LIPID, OUTREACH CMP #### [facility] [address] [place], [place] [id number] [facility] MCV (RBC) [Entitic vol] 90.9 fL Normal 80-100 [facility] Comment on above: Performed By: #### C BCNOOUTREACH, OUTREACH LIPID, OUTREACH CMP #### [facility] [address] [place] [id number] [place] Mean Corpuscular HGB Conc 35.1 g/dL High 32.0-35.0 [facility] Comment on above: Performed By: #### C BCNOOUTREACH, OUTREACH LIPID, OUTREACH CMP #### [facility] [address] [place] [phone] [place] Platelet mean volume (Bld) [Entitic vol] 8.4 fL Normal 6.3-10.7 [facility] Comment on above: Result Comment: PERF ORMED BY: [place] [address] PATHOLOGIST [employer] M.D. Performed By: #### C BCNOOUTREACH, OUTREACH LIPID, OUTREACH CMP #### [facility] [address] [place] [address] Platelets (Bld) [#/Vol] 175 10*3/uL Normal 150-450 [facility] Comment on above: Performed By: #### C BCNOOUTREACH, OUTREACH LIPID, OUTREACH CMP #### [address] RBC (Bld) [#/Vol] 4.66 10*6/uL Normal 3.60-5.00 [facility] Comment on above: Performed By: #### C BCNOOUTREACH, OUTREACH LIPID, OUTREACH CMP #### [address] WBC (Bld) [#/Vol] 5.2 10*3/uL Normal 3.8-11.6 [facility] Comment on above: Performed By: #### C BCNOOUTREACH, OUTREACH LIPID, OUTREACH CMP #### [facility] [address] [place] [address] CMP Outreachon 10-10-2020 Albumin [Mass/Vol] 4.0 g/dL Normal 3.2-5.5 [facility] Comment on above: Performed By: #### C BCNOOUTREACH, OUTREACH LIPID, OUTREACH CMP #### [facility] [address] [place] [address] ALP [Catalytic activity/Vol] 86 U/L Normal 32-92 [facility] Comment on above: Performed By: #### C BCNOOUTREACH, OUTREACH LIPID, OUTREACH CMP #### [facility] [address] [place] [address] ALT [Catalytic activity/Vol] 38 U/L Normal 10-60 [facility] Comment on above: Performed By: #### C BCNOOUTREACH, OUTREACH LIPID, OUTREACH CMP #### [facility] [address] [place] [id number] [place] AST [Catalytic activity/Vol] 31 U/L Normal 10-42 [facility] Comment on above: Performed By: #### C BCNOOUTREACH, OUTREACH LIPID, OUTREACH CMP #### [facility] [address] [place] [phone] [place] Bilirubin [Mass/Vol] 0.6 mg/dL Normal 0.3-1.2 [facility] Comment on above: Performed By: #### C BCNOOUTREACH, OUTREACH LIPID, OUTREACH CMP #### [facility] [address] [place] [address] [place] Calcium [Mass/Vol] 9.6 mg/dL Normal 8.2-10.2 [facility] Comment on above: Performed By: #### C BCNOOUTREACH, OUTREACH LIPID, OUTREACH CMP #### [facility] [address] [place] [address] [place] Chloride [Moles/Vol] 105 mmol/L Normal 95-114 [facility] Comment on above: Performed By: #### C BCNOOUTREACH, OUTREACH LIPID, OUTREACH CMP #### [facility] [address] [place] [address] [place] CO2 [Moles/Vol] 26.3 mmol/L Normal 22.0-30.[address] [facility] Comment on above: Performed By: #### C BCNOOUTREACH, OUTREACH LIPID, OUTREACH CMP #### [facility] [address] [place] [address] [place] Creatinine [Mass/Vol] 1.03 mg/dL Normal 0.44-1.03 [facility] Comment on above: Performed By: #### C BCNOOUTREACH, OUTREACH LIPID, OUTREACH CMP #### [facility] [address] [place] [address] [place] Estimated GFR ( [place] > 60 Normal [facility] Comment on above: Result Comment: GFR estimated reference range: According to KDOQI guidelines, <60 ml/min/1.73m2 is sufficient to diagnose a patient with chronic kidney disease. Performed By: #### C BCNOOUTREACH, OUTREACH LIPID, OUTREACH CMP #### [facility] [address] [place] [address] [place] Estimated GFR (Non- Am 53 Normal [facility] Comment on above: Performed By: #### C BCNOOUTREACH, OUTREACH LIPID, OUTREACH CMP #### [facility] [address] [place] [address] [place] Glucose [Mass/Vol] 94 mg/dL Normal 70-100 [facility] Comment on above: Result Comment: [facility] Glucose Reference Range is dependent on time and content of last meal. Glucose of more than 200 mg/dL in a nonstressed, ambulatory subject supports the diagnosis of Diabetes Mellitus. ADA recommended reference range Performed By: #### C BCNOOUTREACH, OUTREACH LIPID, OUTREACH CMP #### [facility] [address] [place] [address] [place] Potassium [Moles/Vol] 4.4 mmol/L Normal 3.5-5.1 [facility] Comment on above: Performed By: #### C BCNOOUTREACH, OUTREACH LIPID, OUTREACH CMP #### [facility] [address] [place] [address] [place] Protein [Mass/Vol] 7.0 g/dL Normal 6.1-7.9 [facility] Comment on above: Performed By: #### C BCNOOUTREACH, OUTREACH LIPID, OUTREACH CMP #### [facility] [address] [place] [address] [place] Sodium [Moles/Vol] 141 mmol/L Normal 136-146 [facility] Comment on above: Performed By: #### C BCNOOUTREACH, OUTREACH LIPID, OUTREACH CMP #### [facility] [address] [place] [address] [place] Urea nitrogen [Mass/Vol] 12 mg/dL Normal 9-23 [facility] Comment on above: Performed By: #### C BCNOOUTREACH, OUTREACH LIPID, OUTREACH CMP #### [facility] [address] [place] [address] [place] Lipid Profile Outreachon Cholesterol [Mass/Vol] 336 mg/dL High 140-200 [facility] Comment on above: Result Comment: Chol less than 200 mg/dl low risk Chol 201-239 mg/dl borderline risk Chol 240 mg/dl and greater high risk Performed By: #### C BCNOOUTREACH, OUTREACH LIPID, OUTREACH CMP #### [facility] [address] Cholesterol in HDL [Mass/Vol] 48 mg/dL Normal 35-85 [facility] Comment on above: Result Comment: HDL CHOL ATP-III CLASSIFICATION Cardiovascular Risk HDL > or equal to 60 mg/dL LOW HDL < 40 mg/dL HIGH Performed By: #### C BCNOOUTREACH, OUTREACH LIPID, OUTREACH CMP #### [facility] [address] Cholesterol.total/Ch olesterol in HDL [Mass ratio] 7.0 {ratio} Normal <5.0 [facility] Comment on above: Result Comment: PERF ORMED BY: [place] [address] PATHOLOGIST BUYER RENTER [employer]Y [employer]EL M.D. Performed By: #### C BCNOOUTREACH, OUTREACH LIPID, OUTREACH CMP #### [facility] [address] LDL Cholesterol,Calculat ed 250 mg/dL High 0-100 [facility] Comment on above: Result Comment: LDL ATP III CLASSIFICATION LDL less than 100 mg/dL Optimal LDL 100-129 mg/dL Near or above optimal LDL 130-159 mg/dL Borderline high LDL 160-189 mg/dL High LDL greater than 189 mg/dL Very high Performed By: #### C BCNOOUTREACH, OUTREACH LIPID, OUTREACH CMP #### [facility] [address] [place] [id number] [place] Triglyceride w/Reflex 192 mg/dL High 35-149 [facility] Comment on above: Result Comment: TRIG ATP III CLASSIFICATION TRIG less than 150 mg/dL Normal TRIG 150-199 mg/dL Borderline high TRIG 200-500 mg/dL High TRIG greater than 500 mg/dL Very high Standard traceable to the Center for Disease Conrtrol and Prevention (CDC) test method. Performed By: #### C BCNOOUTREACH, OUTREACH LIPID, OUTREACH CMP #### [facility] [address] [place] [id number] [place] VLDL CHOLESTEROL 38 mg/dL Normal [facility] Comment on above: Performed By: #### C REX, DAYAMI LIPID, OUTREACH CMP #### [facility] [address] [place] [id number] [place] Vital Signs Date Time Vital Sign Value Performing Clinician Facility 05-14-2024 12:15-0500 Body height 162.6 cm P[facility] 1 [facility] 05-14-2024 12:15-0500 Body mass index (BMI) [Ratio] 32.61 kg/m2 [facility] 1 [facility] 05-14-2024 12:15-0500 Body weight 86.18 kg Pm 1 [facility] 05-14-2024 08:50-0500 Body height 165.1 cm Rossana Torrent [employer] Work Phone: [facility] 05-14-2024 08:50-0500 Body mass index (BMI) [Ratio] 31.62 kg/m2 [employer] Work Phone: [facility] 05-14-2024 08:50-0500 Body weight 86.18 kg [employer] Work Phone: [facility] 05-07-2024 10:00-0400 Body height 165.1 cm [facility] 05-07-2024 10:00-0400 Body mass index (BMI) [Ratio] 32.3 kg/m2 [facility] 05-07-2024 10:00-0400 Body weight 87.99 kg [facility] 05-07-2024 10:00-0400 Diastolic blood pressure 79 mm[Hg] [facility] 05-07-2024 10:00-0400 Heart rate 59 /min [facility] 05-07-2024 10:00-0400 Respiratory rate 12 /min [facility] 05-07-2024 10:00-0400 Systolic blood pressure 166 mm[Hg] [facility] 02-08-2024 11:15-0400 Body height 165.1 cm [facility] 02-08-2024 11:15-0400 Body mass index (BMI) [Ratio] 31.8 kg/m2 [facility] 02-08-2024 11:15-0400 Body weight 86.69 kg [facility] 02-08-2024 11:15-0400 Heart rate 68 /min [facility] 02-08-2024 11:15-0400 Respiratory rate 12 /min [facility] 12-28-2023 12:42-0400 Body height 162.6 cm Litzy Todd TRIM ATTACHER[employer] Work Phone: [facility] 12-28-2023 12:42-0400 Body mass index (BMI) [Ratio] 33.03 kg/m2 Litzy Todd TRIM ATTACHER[employer] Work Phone: [facility] 12-28-2023 12:42-0400 Body weight 87.27 kg Litzy Todd TRIM ATTACHER.[employer] Work Phone: [facility] 12-28-2023 12:42-0400 Diastolic blood pressure 64 mm[Hg] Litzy Todd TRIM ATTACHER.[employer] Work Phone: [facility] 12-28-2023 12:42-0400 Heart rate 78 /min Litzy Todd TRIM ATTACHER.[employer] Work Phone: [facility] 12-28-2023 12:42-0400 SaO2% (BldA) [Mass fraction] 95 % Litzy Todd TRIM ATTACHER.[employer] Work Phone: [facility] 12-28-2023 12:42-0400 Systolic blood pressure 137 mm[Hg] Litzy Todd TRIM ATTACHER.[employer] Work Phone: [facility] 11-15-2023 13:02-0400 Body height 162.6 cm [facility] Work Phone: [facility] 11-15-2023 13:02-0400 Body mass index (BMI) [Ratio] 33.07 kg/m2 [facility] Work Phone: [facility] 11-15-2023 13:02-0400 Body temperature 97.2 [degF] [facility] 2 Work Phone: [facility] 11-15-2023 13:02-0400 Body weight 87.4 kg [facility] 2 Work Phone: [facility] 11-15-2023 13:02-0400 Diastolic blood pressure 76 mm[Hg] [facility] 2 Work Phone: [facility] 11-15-2023 13:02-0400 Heart rate 91 /min [facility] 2 Work Phone: [facility] 11-15-2023 13:02-0400 Respiratory rate 14 /min [facility] 2 Work Phone: [facility] 11-15-2023 13:02-0400 SaO2% (BldA) [Mass fraction] 100 % [facility] 2 Work Phone: [facility] 11-15-2023 13:02-0400 Systolic blood pressure 136 mm[Hg] [facility] 2 Work Phone: [facility] 05-11-2023 11:00-0400 Body height 165.1 cm Jordan Ball Other [employer] Other 05-11-2023 11:00-0400 Body mass index (BMI) [Ratio] 32.41 kg/m2 Jordan Ball Other [employer] Other 05-11-2023 11:00-0400 Body weight 88.36 kg Jordan Ball Other [employer] Other 05-11-2023 11:00-0400 Diastolic blood pressure 80 mm[Hg] Jordan Ball Other [employer] Other 05-11-2023 11:00-0400 Respiratory rate 12 /min Jordan Ball Other [employer] Other 05-11-2023 11:00-0400 Systolic blood pressure 118 mm[Hg] Jordan Ball Other [employer] Other 02-16-2023 13:53-0400 Body height 165.1 cm Jordan Ball Other [employer] Other 02-16-2023 13:53-0400 Diastolic blood pressure 72 mm[Hg] Jordan Ball Other [employer] Other 02-16-2023 13:53-0400 Systolic blood pressure 152 mm[Hg] Jordan Ball Other [employer] Other 09-05-2022 12:34-0500 Body height 162.6 cm Jorge Desai MD Work Phone: [facility] 09-05-2022 12:34-0500 Body temperature 97.59 [degF] Jorge Desai MD Work Phone: [facility] 09-05-2022 12:34-0500 Body weight 88.91 kg Jorge Desai MD Work Phone: [facility] 09-05-2022 12:34-0500 Diastolic blood pressure 87 mm[Hg] Jorge Desai MD Work Phone: [facility] 09-05-2022 12:34-0500 Heart rate 67 /min Jorge Desai MD Work Phone: [facility] 09-05-2022 12:34-0500 Respiratory rate 20 /min Jorge Desai MD Work Phone: [facility] 09-05-2022 12:34-0500 SaO2% (BldA) [Mass fraction] 98 % Jorge Desai MD Work Phone: [facility] 09-05-2022 12:34-0500 Systolic blood pressure 183 mm[Hg] Jorge Desai MD Work Phone: [facility] Encounters Encounter Date Encounter Type Care Provider Facility Start: 06-17-2024 End: 06-17-2024 [employer] Eula Chris Apling TELEGRAPHIC TYPEWRITER OPERATOR Work Phone: [facility] Start: 06-17-2024 End: 06-17-2024 [employer] Eula B Apling TELEGRAPHIC TYPEWRITER OPERATOR Work Phone: [facility] Start: 06-17-2024 End: 06-17-2024 Postop follow up visit related to original px Eula B Apling TELEGRAPHIC TYPEWRITER OPERATOR Work Phone: [facility] Comment on above: S/P trigger finger r elease (Primary Dx); Carpal tunnel syndrome of right wrist Start: 06-17-2024 End: 06-17-2024 ambulatory EULA B APLING Not Available Start: 05-22-2024 End: 05-22-2024 [facility] [employer] Eula B Apling TELEGRAPHIC TYPEWRITER OPERATOR Work Phone: [facility] Start: 05-22-2024 End: 05-22-2024 [employer] Eula B Apling TELEGRAPHIC TYPEWRITER OPERATOR Work Phone: [facility] Start: 05-22-2024 End: 05-22-2024 Postop follow up visit related to original px Eula B Apling TELEGRAPHIC TYPEWRITER OPERATOR Work Phone: [facility] Comment on above: S/P trigger finger r elease (Primary Dx) Start: 05-22-2024 End: 05-22-2024 ambulatory EULA B APLING Not Available Start: 05-15-2024 End: 05-15-2024 Evaluation and management of inpatient JORDAN AVITIA [facility] Start: 05-14-2024 End: 05-14-2024 Office outpatient visit 15 minutes Rossana Miller DO Work Phone: [facility] Comment on above: Pain of right thumb (Primary Dx); Trigger finger of right thumb Start: 05-14-2024 End: 05-14-2024 Refill Brody Castro TELEGRAPHIC TYPEWRITER OPERATOR Work Phone: [facility] Comment on above: Trigger finger of ri ght thumb (Primary Dx) Start: 05-13-2024 End: 05-13-2024 [employer] Eula Perez Aplwilmar TELEGRAPHIC TYPEWRITER OPERATOR Work Phone: [facility] Start: 05-13-2024 End: 05-13-2024 [employer] Eula Castillo TELEGRAPHIC TYPEWRITER OPERATOR Work Phone: [facility] Start: 05-13-2024 End: 05-13-2024 Office outpatient visit 15 minutes Eula Castillo TELEGRAPHIC TYPEWRITER OPERATOR Work Phone: [facility] Comment on above: Pain of right thumb (Primary Dx); Trigger finger of right thumb Start: 05-13-2024 End: 05-13-2024 ambulatory EULA CASTILLO Not Available Start: 05-07-2024 End: 05-07-2024 ambulatory [facility] Work Phone: Start: 05-07-2024 End: 05-07-2024 Patient encounter procedure [facility] Work Phone: Start: 04-11-2024 Non-patient / Non-visit [facility] Work Phone: Start: 02-08-2024 End: 02-08-2024 ambulatory [facility] Work Phone: Start: 02-08-2024 End: 02-08-2024 Patient encounter procedure [facility] Work Phone: Start: 01-24-2024 End: 01-24-2024 Admission to same day surgery center Jorge Desai MD Work Phone: Neurosurgery Comment on above: Lumbar stenosis with neurogenic claudication (Primary Dx) Start: 01-24-2024 End: 01-24-2024 Telemedicine consultation with patient Jorge Desai MD Work Phone: Neurosurgery Start: 01-24-2024 End: 01-24-2024 ambulatory JORGE DESAI Facility:[facility] Start: 01-23-2024 Telephone encounter Jorge santana MD Work Phone: Neurology Comment on above: Setup Technician - O ther Start: 01-15-2024 End: 01-15-2024 ambulatory Melonie Granado RT(R) Radiology Comment on above: Radiology XR Start: 01-15-2024 Patient encounter procedure Melonie Granado RT(R) Radiology Start: 01-15-2024 End: 01-15-2024 Subsequent hospital visit by physician Litzy Todd APRN.SHIP [employer]AT [employer] BARGE MATE Work Phone: Radiology Comment on above: S/P lumbar fusion [Z 98.1] Start: 12-28-2023 End: 12-28-2023 Patient encounter procedure Litzy Todd TRIM ATTACHER.[employer] BARGE MATE Work Phone: Neurosurgery Comment on above: S/P lumbar fusion (P rimary Dx) Start: 12-28-2023 End: 12-28-2023 ambulatory LITZY TODD Facility:[facility] Start: 12-18-2023 Telephone encounter Jorge santana MD Work Phone: Neurology Comment on above: Fever Start: 12-15-2023 End: 12-16-2023 Evaluation and management of inpatient JORGE DESAI Facility:[facility] Start: 12-05-2023 End: 12-05-2023 Refill Jorge Desai MD Work Phone: Neurology Start: 11-15-2023 Encounter for other preprocedural examination LITZY TODD [facility] Start: 11-15-2023 End: 11-15-2023 [facility] Start: 11-15-2023 End: 11-15-2023 ambulatory GEORGETTE SANTOS Facility:[facility] Start: 11-15-2023 End: 11-15-2023 Anesthesia consultation [facility] 2 Work Phone: Pre Anesthesia Comment on above: Pre-op evaluation (P rimary Dx); Pre-op testing; Primary hypertension; Pain in right hip; Pain, unspecified Start: 11-15-2023 End: 11-15-2023 Patient encounter status [facility] Work Phone: [facility] Start: 11-15-2023 End: 11-15-2023 Preprocedural examination done [facility] Work Phone: [facility] Work Phone: Start: 11-07-2023 End: 11-07-2023 ambulatory JULIANNA HALL Not Available Start: 09-05-2023 ambulatory Jorge Desai MD Work Phone: Neurosurgery Start: 09-05-2023 Patient encounter status Jorge Desai MD Work Phone: [facility] Start: 09-05-2023 Telephone encounter Jorge santana MD Work Phone: Neurology Comment on above: Surgery Date Start: 09-04-2023 End: 09-04-2023 ambulatory SELF Facility:[facility] Start: 08-01-2023 End: 08-01-2023 ambulatory Jordan Adore Other [employer] Other Start: 08-01-2023 Telephone encounter Jordan Adore [facility] Start: 06-21-2023 End: 06-21-2023 ambulatory Jordan Avitia Other [employer] Other Start: 06-21-2023 Telephone encounter Jordan Adore FP [facility] Start: 06-19-2023 End: 06-19-2023 ambulatory Jordan Ball Other [employer] Other Start: 06-19-2023 Office outpatient vi sit 15 minutes Jordan Ball [facility] Start: 05-18-2023 End: 05-18-2023 ambulatory Jordan Ball Other [employer] Other Start: 05-18-2023 Telephone encounter Jordan Ball [facility] Start: 05-11-2023 End: 05-11-2023 ambulatory Jordan Ball Other [employer] Other Start: 05-11-2023 Office outpatient vi sit 25 minutes Jordan Avitia [facility] Start: 03-21-2023 End: 03-21-2023 ambulatory Jordan Avitia Other [employer] Other Start: 03-21-2023 Telephone encounter Jordan Avitia [facility] Start: 02-19-2023 End: 02-19-2023 ambulatory Jordan Avitia Other [employer] Other Start: 02-19-2023 Telephone encounter Jordan Avitia [facility] Start: 02-16-2023 End: 02-16-2023 ambulatory Jordan Avitia Other [employer] Other Start: 02-16-2023 Telephone encounter Jordan Avitia FP [facility] Start: 02-10-2023 End: 02-10-2023 ambulatory Jordan Avitia Other [employer] Other Start: 02-10-2023 Telephone encounter Jordan Avitia FP [facility] Start: 02-09-2023 End: 02-09-2023 ambulatory Jordan Avitia Other [employer] Other Start: 02-09-2023 Telephone encounter Jordan Avitia [facility] Start: 02-06-2023 End: 02-07-2023 ambulatory Jessica Mi MD Facility:[facility] Start: 12-06-2022 End: 12-07-2022 ambulatory NARENDRANATH LAKSHMIPATHY . Facility:[facility] Start: 11-15-2022 End: 11-15-2022 ambulatory NARENDRANATH LAKSHMIPATHY . Facility:[facility] Start: 11-03-2022 End: 11-04-2022 ambulatory NARENDRANATH LAKSHMIPATHY . Facility:[facility] Start: 10-18-2022 End: 10-18-2022 ambulatory NARENDRANATH LAKSHMIPATHY . Facility:[facility] Start: 10-06-2022 End: 10-07-2022 ambulatory NARENDRANROMEO LAKSHMIPATHY . Facility:[facility] Start: 09-09-2022 End: 10-12-2022 ambulatory NEHA GREWAL . Facility:[facility] Start: 09-09-2022 Telephone encounter Jorge santana MD Work Phone: Neurology Comment on above: Received Outside Med ical Records Start: 09-08-2022 End: 09-09-2022 ambulatory NEHA GREWAL . Facility:[facility] Start: 09-05-2022 End: 09-05-2022 Patient encounter procedure Jorge Desai MD Work Phone: Neurosurgery Comment on above: Degenerative scolios is (Primary Dx) Start: 08-02-2022 End: 08-02-[address] ZACARIAS SAMUEL . Facility:[facility] Start: 07-27-2022 End: 07-28-[address] JORDAN AVITIA Facility:[facility] Start: 07-19-2022 End: 07-20-[address] ZACARIAS SAMUEL . 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[employer] Work Phone: Start: 11-15-2023 Antibody screen LITZY TODD Comment on above: Order Comment: Speci men Type: BLOOD SPECIMEN Ordering Facility: [facility] Address: [address] [place] [address] Performed By: #### T [id number] #### CC MAIN BLOOD BANK [facility] [id number] [address] [place] [address] [place] Start: 11-15-2023 Ecg routine ecg w/le ast 12 lds i&r only [facility] Provider H/O: surgery S/P trigger fing er release Eula Castillo TELEGRAPHIC TYPEWRITER OPERATOR Work Phone: H/O: surgery S/P trigger fing er release Eula Castillo TELEGRAPHIC TYPEWRITER OPERATOR Work Phone: Plan of Treatment Date Care Activity Detail Author Start: 12-15-2026 Diabetes Screening Diabetes Screenin g [facility] Start: 11-14-2026 Diabetes Screening Diabetes Screenin g [facility] Start: 02-13-2026 Screening for malign ant neoplasm of colon [facility] Start: 05-14-2025 Adult BMI Screening Adult BMI Screen ing [facility] Start: 05-14-2025 Tobacco Screening Tobacco Screening [facility] Start: 06-19-2024 End: 06-19-2024 Patient encounter procedure 06/19/2024 8:30 AM EST Office Visit [facility] [address] [place] [address] Eula Castillo, TELEGRAPHIC TYPEWRITER OPERATOR [address] [place] [address] [facility] Start: 06-17-2024 End: 06-17-2024 Patient encounter procedure 06/17/2024 9:30 AM EST Office Visit [facility] [address] [place] [address] Eula Castillo, TELEGRAPHIC TYPEWRITER OPERATOR [address] [place] [address] S/P trigger finger release (Primary Dx) [facility] Comment on above: S/P trigger finger r elease (Primary Dx) Start: 05-22-2024 End: 05-22-2024 Patient encounter procedure 05/22/2024 9:00 AM EST Office Visit [facility] [address] [place] [address] Eula Castillo, TELEGRAPHIC TYPEWRITER OPERATOR [address] [place] [address] [facility] Start: 05-15-2024 End: 05-15-2024 Tendon sheath incision RELEASE TRIGGER FINGER right trigger thumb 05/15/2024 10:03 AM EST [facility] Start: 05-14-2024 End: 05-14-2024 Patient encounter procedure 05/14/2024 9:00 AM EST Office Visit [facility] [address] [place] [address] Rossana Miller DO [address] [place] [address] [facility] Start: 05-13-2024 End: 05-13-2024 Patient encounter procedure 05/13/2024 1:00 PM EST Office Visit [facility] [address] [place] [address] Eula Castillo, ZACHARY [address] [place] [address] Arrived [facility] Comment on above: Arrived Start: 05-07-2024 Patient referral [facility] Work Phone: Start: 04-15-2024 DTaP,Tdap and Td Vaccines (2 - Td or Tdap) DTaP,Tdap and Td Vaccines (2 - Td or Tdap) [facility] Start: 03-10-2024 Influenza vaccination Influenza Vacc ine (#1) [facility] Start: 01-24-2024 End: 01-24-2024 Admission to same day surgery center 01/24/2024 3:20 PM EDT [facility] Neurosurgery [address] [place] [address] [place] [address] [place] [address] VV Post op Neurosurgery Comment on above: VV Post op Start: 12-28-2023 End: 12-28-2023 Patient encounter procedure 12/28/2023 1:00 PM EDT Office Visit Neurosurgery [address] [place] [address] Jodi Vega, PAAlexC [address] [place] [address] post op Neurosurgery Comment on above: post op Start: 12-15-2023 End: 12-15-2023 Admission to same day surgery center 12/15/2023 10:00 AM EDT - 12/15/2023 1:20 PM EDT Surgery [facility] Operating Room [address] [id number] [place] [address] [place] [address] LATERAL INTERBODY FUSION (LIF); LUMBAR [facility] Comment on above: LATERAL INTERBODY [...] physician 12/15/2023 10:00 AM EDT Hospital Encounter [facility] Operating Room [address] [address] [place] [address] [place] [address] Spinal stenosis, lumbar region with neurogenic claudication [M48.062] [facility] Operating [facility] Comment on above: Spinal stenosis, lum bar region with neurogenic claudication [M48.062] Start: 12-05-2023 End: 12-05-2023 Patient encounter procedure 12/05/2023 11:45 AM EDT Office Visit Financial Clearance Phone Screening [facility] registration Financial Clearance Phone Screening Comment on above: [employer] registration Start: 11-15-2023 End: 08-07-2024 Bacteria identified in Urine by Culture [facility] Comment on above: Expected: 11/15/2023 , Expires: 02/14/2024 Start: 11-15-2023 End: 02-14-2024 Comprehensive metabolic 2000 panel - Serum or Plasma [facility] Work Phone: Comment on above: Expected: 11/15/2023 , Expires: 02/14/2024 Start: 11-15-2023 End: 02-14-2024 CONFIRM BLOOD TYPE [facility] Comment on above: Expected: 11/15/2023 , Expires: 02/14/2024 Start: 11-15-2023 End: 02-14-2024 Ferritin [Mass/volume] in Serum or Plasma [facility] Comment on above: Expected: 11/15/2023 , Expires: 02/14/2024 Start: 11-15-2023 End: 02-14-2024 Iron and Iron binding capacity panel - Serum or Plasma [facility] Comment on above: Expected: 11/15/2023 , Expires: 02/14/2024 Start: 11-15-2023 End: 02-14-2024 TYPE AND SCREEN,30 DAY [facility] Comment on above: Expected: 11/15/2023 , Expires: 02/14/2024 Start: 11-15-2023 End: 02-14-2024 URINALYSIS, REFLEX MICROSCOPIC [facility] Comment on above: Expected: 11/15/2023 , Expires: 02/14/2024 Start: 08-04-2023 Covid-19 Vaccine () Covid-19 Vaccine () [facility] Start: 08-01-2023 Shingrix Vaccine (2 of 2) Shingrix Vaccine (2 of 2) [facility] Start: 07-10-2023 Advance Directive Discussion Advance Directive Discussion [facility] Start: 07-10-2023 Behavioral Health Screening Behavioral Health Screening [facility] Start: 07-10-2023 Depression Assessment Depression Ass essment [facility] Start: 07-10-2022 ADVANCE DIRECTIVE DISCUSSION ADVANCE DIRECTIVE DISCUSSION [facility] Start: 07-10-2022 DEPRESSION ASSESSMENT DEPRESSION ASS ESSMENT [facility] Start: 06-22-2020 Pneumococcal Vaccine : 65+ (3 of 3 - PPSV23 or PCV20) Pneumococcal Vaccine: 65+ (3 of 3 - PPSV23 or PCV20) [facility] Start: 06-22-2020 Pneumococcal Vaccine : 65+ Years (3 of 3 - PPSV23 or PCV20) Pneumococcal Vaccine: 65+ Years (3 of 3 - PPSV23 or PCV20) [facility] Start: 04-10-2016 Pneumococcal Vaccine : 65+ (2 of 2 - PCV) Pneumococcal Vaccine: 65+ (2 of 2 - PCV) [facility] Start: 2015 BONE DENSITY BONE DENSITY [facility] Start: 2015 Fall Risk Screening Fall Risk Screen [facility] [employer] [facility] Start: 2015 PNEUMOCOCCAL: 65+ (1 - PCV) PNEUMOCOCCAL: 65+ (1 - PCV) [facility] Start: 2015 Screening for osteoporosis Bone Density Screening [facility] Start: 04-16-2014 Urine microalbumin profile DTaP,Tdap,Td Vaccine (1 - Tdap) [facility] Start: 2010 RSV Vaccine (1 - 1-d ose 60+ series) RSV Vaccine (1 - 1-dose 60+ series) [facility] Start: 2000 SHINGRIX VACCINE (1 of 2) SHINGRIX VACCINE (1 of 2) [facility] Start: 1995 COLOGUARD (FIT-DNA) COLOGUARD (FIT-D NA) [facility] Start: 1995 Colonoscopy COLONOSCOPY [facility] Start: 1995 COLORECTAL CANCER SCREENING COLORECTAL CANCER SCREENING [facility] Start: [address] COLONOGRAPHY [facility] Start: 1995 DIABETES SCREEN DIABETES SCREEN [facility] Start: 1995 Diabetes Screening Diabetes Screenin g [facility] Start: 1995 FECAL OCCULT BLOOD FECAL OCCULT BLOO D [facility] Start: 1995 Lipid panel Lipid Screening [facility] Start: 1995 LIPID SCREEN LIPID SCREEN [facility] Start: 1995 Screening for malign ant neoplasm of colon [facility] Start: [address] [facility] Start: 1990 Mammography MAMMOGRAM [facility] Start: 1990 Screening for malign ant neoplasm of breast [facility] Start: 1969 Urine microalbumin profile [facility] Start: 1968 Adult BMI Follow Up Plan Adult BMI Follow Up Plan [facility] Start: 1968 Annual PCP Team Food Safety Technician freddy Disease Visit Annual PCP Team Chronic Disease Visit [facility] Start: 1968 BP Controlled (<130/80) BP Controlle d (<130/80) [facility] Start: 1968 HEPATITIS C SCREENING HEPATITIS C [facility] Start: 1968 Hepatitis C screening Hepatitis C [facility] Start: 1962 Depression Screening Depression Scre ening [facility] Start: 1950 Screening for malign ant neoplasm of colon [facility] ECG COMPLETE [facility] Comment on above: Ordered: 11/15/2023 Patient referral [facility] Work Phone: End: 01-26-2025 XR Lumbar spine AP and Lateral XR LUMBAR LIMITED 2V AP/LAT Radiology Routine S/P lumbar fusion 1 Occurrences starting 12/28/2023 until 01/26/2025 [facility] Work Phone: Comment on above: 1 Occurrences starti ng 12/28/2023 until 01/26/2025 [facility] c [facility] Immunizations Immunization Date Immunization Notes Care Provider Quin arzola 04-01-2024 influenza, high dose seasonal, preservative-free Brody Castro TELEGRAPHIC TYPEWRITER OPERATOR Work Phone: [facility] 09-16-2023 zoster vaccine recombinant Brody Castro TELEGRAPHIC TYPEWRITER OPERATOR Work Phone: [facility] 06-06-2023 zoster vaccine recombinant Brody Castro TELEGRAPHIC TYPEWRITER OPERATOR Work Phone: [facility] 04-04-2023 Influenza, Seasonal, Quadrivalent, Adjuvanted Brody Castro TELEGRAPHIC TYPEWRITER OPERATOR Work Phone: [facility] 04-04-2023 influenza virus vaccine, unspecified formulation Melonie Granado RT(R) [facility] 11-04-2022 COVID-19 Pfizer (bivalent) [facility] Other [facility] 04-25-2022 influenza, high dose seasonal, preservative-free Jordan [facility] Other [facility] [employer] Other 04-25-2022 COVID-19 Pfizer (bivalent) [facility] Other [facility] 04-25-2022 influenza virus vaccine, unspecified formulation [facility] 04-25-2022 Influenza, Seasonal, Quadrivalent, Adjuvanted Brody Castro TELEGRAPHIC TYPEWRITER OPERATOR Work Phone: [facility] 04-11-2022 influenza, injectabl e, quadrivalent, preservative free Brody Castro TELEGRAPHIC TYPEWRITER OPERATOR Work Phone: [facility] 02-15-2022 COVID-19 Pfizer Jordan higuera Other [facility] 05-08-2021 Influenza, Seasonal, Quadrivalent, Adjuvanted Brody Castro TELEGRAPHIC TYPEWRITER OPERATOR Work Phone: [facility] 04-14-2021 influenza, injectabl e, quadrivalent, preservative free Brody Castro TELEGRAPHIC TYPEWRITER OPERATOR Work Phone: [facility] 08-13-2020 COVID-19 Vaccine Pfi zer - Documentation Purposes Only [facility] Other [facility] 03-03-2020 influenza virus vaccine, split virus (incl. purified surface antigen) [facility] Other [facility] [employer] Other 03-03-2020 influenza virus vaccine, unspecified formulation [facility] 03-03-2020 influenza, injectabl e, quadrivalent, preservative free Brody Castro TELEGRAPHIC TYPEWRITER OPERATOR Work Phone: [facility] 04-20-2018 influenza, live, intranasal, quadrivalent Brody Castro TELEGRAPHIC TYPEWRITER OPERATOR Work Phone: [facility] 04-16-2018 influenza virus vaccine, split virus (incl. purified surface antigen) [facility] Other [facility] [employer] Other 04-16-2018 influenza virus vaccine, unspecified formulation [facility] 04-16-2018 Seasonal trivalent influenza vaccine, adjuvanted, preservative free Brody Castro TELEGRAPHIC TYPEWRITER OPERATOR Work Phone: [facility] 06-22-2015 pneumococcal conjuga te vaccine, 13 valent [facility] Other [facility] 04-10-2015 influenza, seasonal, injectable, preservative free Brody Castro NP Work Phone: [facility] 04-10-2015 pneumococcal polysaccharide vaccine, 23 valent [facility] Other [facility] 04-15-2014 tetanus and diphther ia toxoids, adsorbed, preservative free, for adult use (5 Lf of tetanus toxoid and 2 Lf of diphtheria toxoid) [facility] Other [facility] 10-11-2013 pneumococcal polysaccharide vaccine, 23 valent [facility] Other [facility] Payers Date Payer Category Payer Private Health Insurance [employer] [id number] 2023 Commercial Managed C are - POS [employer] [id number] 2023 Private Health Insurance [id number] 2015 Medicare [id number] 2015 Unknown [id number] [id number] .[id number] 2015 Unknown [id number] 1959 Medicare [id number] 1959 Unknown [id number] 1950 Unknown [id number] 2.16.840.1.811898.3.579 .2.593 1950 Unknown [id number] 2.16.840.1.368922.3.579 .2.593 1950 Unknown [id number] 2.16.840.1.677478.3.579 .2.593 1950 Unknown [id number] 2.16.840.1.884599.3.579 .2.593 1950 Unknown [id number] 2.16.840.1.123777.3.579 .2.593 1950 Unknown [id number] 2.16.840.1.147784.3.579 .2.593 1950 Unknown [id number] 2.16.840.1.021592.3.579 .2.593 1950 Unknown [id number] 2.16.840.1.189853.3.579 .2.593 1950 Unknown [id number] 2.16.840.1.090937.3.579 .2.593 1950 Unknown [id number] 2.16.840.1.182954.3.579 .2.593 1950 Unknown [id number] 2.16.840.1.069236.3.579 .2.593 1950 Unknown [id number] 2.16.840.1.249089.3.579 .2.196 1950 Unknown [id number] 2.16.840.1.268362.3.579 .2.1286 1950 Unknown [id number] 2.16.840.1.906836.3.579 .2.1286 1950 Unknown [id number] 2.16.840.1.554999.3.579 .2.1259 1950 Unknown [id number] 2.16.840.1.004355.3.579 .2.1259 1950 Unknown [id number] 2.16.840.1.097669.3.579 .2.1259 1950 Unknown [id number] 2.16.840.1.723599.3.579 .2.1259 1950 Unknown [id number] 2.16.840.1.521950.3.579 .2.1259 Medicare Medicare Nonpatient [id number] 1A [id number] Self-pay Self Pay [id number] Social History Date Type Detail Facility Start: 09-05-2022 End: 05-14-2024 Tobacco smoking status NHIS Ex-smoker [facility] End: 08-22-1979 History of tobacco use Current smoker [facility] End: 08-22-1979 History of tobacco use Cigarette Smoker [facility] Start: 1950 Sex Assigned At Female [facility] Start: 09-04-2023 End: 05-13-2024 Sex Assigned At [facility] Start: 09-04-2023 End: 05-13-2024 History of Social function [facility] Adult Depression Screening Assessment 0 [facility] Start: 08-29-2022 Gender identity Identifies as female gender (finding) [facility] Start: 08-29-2022 Sexual orientation Heterosexual (finding) [facility] Start: 11-15-2023 End: 05-15-2024 Alcohol intake Current drinker of alcohol (finding) [facility] Start: 11-15-2023 Alcohol Comment special occasions [facility] Start: 05-08-2023 Tobacco smoking status NHIS Never smoked tobacco [facility] Start: 05-08-2023 End: 05-14-2024 Tobacco use and exposure Smokeless tobacco non-user [facility] Start: 1950 Sex assigned at Not on file [facility] Start: 05-14-2024 Alcohol Comment social [facility] Start: 05-14-2024 Sex Female (finding) [facility] Medical Equipment Procedure Code Equipment Code Equipment Origin al Text Equipment Identifier Dates Graft Infuse 14m m Small Bovine Collagen Rhbmp-2 23mm Bone Absorbable Sponge - [id number] Start: 12-15-2023 Substitute Mastergraft Calcium Phosphate Collagen Bone Graft Void Filler - [id number] Start: 12-15-2023 Felicia Spacer 8-15 mm 20mm X 55mm 6deg [id number] Start: 12-15-2023 Self Drilling Sc rew Variable Angle 5.5mm 40mm [id number] Start: 12-15-2023 Clinical Notes 07-19-2022 to 06-17-2024 Eula Castillo, ZACHARY - 06/17/2024 9:30 AM Felisha Castillo NP - 05/22/2024 9:00 AM ESTTelephone Encounter - Brody Castro, TELEGRAPHIC TYPEWRITER OPERATOR - 05/14/2024 12:23 PM Krish Miller, DO - 05/14/2024 9:00 AM EST Note Date & Type Note Facility 06-17-2024 History of Presen t illness Narrative Images from the original note were not included. Subjective Patient ID: Christian Noyola is a 73 y.o. female. RT Thumb 4 weeks and 5 days s/p RT thumb trigger release (DOS 05/15/24). Denies swelling. denies triggering/locking, admits N/T in the entire hand. Denies pain. Pleased with outcome RT Hand She notes since surgery the numbness and burning has worsened. She notes she is able to shake it off until last night she had been up from 1-3 am trying to get the numbness to resolve. She does not wear a brace at night. She notes prior to surgery the numbness was light for a few months. She is taking 2 IBU every morning for her back. Objective Ortho Exam Hand/Wrist Musculoskeletal Exam Inspection Right Erythema: none Ecchymosis: none Edema: none Deformity: none Hand - prior incision: trigger Trigger incision: thumb Incision: well-healed Incisional drainage: none Inspection additional comments: No triggering or locking, firmness over the incision, decreased sensation median nerve Assessment/Plan Encounter Diagnoses: ICD-10-CM 1. S/P trigger finger release Z98.890 2. Carpal tunnel syndrome of right wrist G56.01 A right L3908 Wrist Hand Orthosis, Wrist Extension Control Cock-Up, non-molded, prefabricated, off the shelf brace was applied. This brace will be used to immobilize the wrist and allow for full and complete healing of the wrist. The function of the device is to provide support, decrease edema, control motion at wrist joint. The goals of the device are to decrease pain decrease inflammation, increase stability and to allow the patient to continue to use hand and wrist to complete ADLs. The device is medically necessary for the condition, symptoms and diagnosis. It was dispensed and fitted for the patient, and it fit properly. The patient was educated as to proper use and care, and this was reviewed in detail. Written instructions and warranty information were given with the device. A receipt for the device is on file. The current supplier standards were given to the patient. [employer] patient agreement was completed at time of dispensement. The patient stated that the device was comfortable when fitted in the office. At the time of dispensement, the device was suitable and not substandard. Discussed therapy for incisional desentization and she notes she is going to think about it, wear the brace while sleeping if worsening symptoms instructed to call us. F/U prn documented in this encounter [facility] 05-22-2024 History of Presen t illness Narrative Images from the original note were not included. Subjective Patient ID: Christian Noyola is a 73 y.o. female. RT Thumb 7 days s/p RT thumb trigger release (DOS 05/15/24) sutures intact, denies drainage/fevers/chills. Doing great, denies triggering, denies N/T. Denies pain. Pleased with outcome Objective Ortho Exam Hand/Wrist Musculoskeletal Exam Inspection Right Erythema: none Ecchymosis: none Edema: mild Deformity: none Hand - prior incision: trigger Trigger incision: middle Incision: clean, dry and intact Incisional drainage: none Inspection additional comments: Sutures intact, sutures removed in office, no triggering or locking, NV intact, no signs of infection Assessment/Plan Encounter Diagnoses: ICD-10-CM 1. S/P trigger finger release Z98.890 RT thumb no forceful gripping or heavy lifting for 4 weeks s/p surgery, no submerging in water for 4 weeks s/p surgery, f/u in 4 weeks documented in this encounter [facility] 05-14-2024 Telephone encounter Note Post op pain rx. PDMP reviewed [facility] 05-14-2024 Miscellaneous Notes Post op pain rx. PDMP reviewed documented in this encounter [facility] 05-14-2024 Nurse Note Preoperative Education Checklist- General Surgery date: 05/15/24 Surgery time: 1015a Arrival time: 815a 1. Bring a photo ID and your insurance card with you the day of surgery. You will check in at the main lobby of the [facility]- registration desk is straight ahead as soon as you walk in. Tell them you are here for surgery. 2. If you have a Living Will/Durable Power of Score Caller for Health Care that is not on file here, please bring a copy the day of surgery. 3. Please shower/bathe the night before surgery with the provided soap or wipes. Do not shower the morning of surgery- you will do use wipes when you arrive here at the hospital before getting into your surgical gown. Do not shave the area of your procedure for 2 days prior to your surgery. 4. NO powder, lotion, perfume/cologne, aftershave, make-up, deodorant, or hair products after you have bathed. 5. NO nail stateless/acrylic on at least one finger. If you are having a hand, wrist or foot surgery then all nail stateless and artificial/acrylic nails must be removed from that hand or foot. 6. Avoid ALL Aspirin and non-steroidal anti-inflammatory drugs and certain vitamins (Ibuprofen, Advil, Aleve, Excedrin, Meloxicam, Celebrex, fish/krill oil, etc.) for 7 days prior to surgery as instructed by your surgeon and/or your prescribing doctor. Tylenol IS ALLOWED. If you are on Ticlid, Xarelto, Eliquis, Pradaxa, Plavix or Coumadin, please check with your prescribing doctor for instructions for when to stop them. 7. If you use an inhaler, continue to use it routinely. 8. Nothing to eat or drink (not even water, gum, mints, or hard candy!) AFTER midnight prior to your surgery. 9. Take only medications that you are instructed to on the morning of surgery with a TINY SIP OF WATER. 10. Choose a responsible adult that will be able to drive you home when you are discharged from your hospital stay for your surgery and can stay with you in your home for 24 hours after your procedure. You must NOT drive any vehicle or operate any machinery for 24 hours after surgery. 11. When you dress for your appointment, please wear loose fitting clothing that is appropriate to accommodate your surgical area procedure. BRING WITH YOU ANY DEVICES YOU MAY NEED: LARRY hose, ice machine, sling/swath, brace or special shoe, oversized zip-up or button up shirt, CPAP machine if staying overnight. 12. Do NOT wear jewelry, watches, or any piercings or metal for surgery- leave these valuables and money at home. 13. Do NOT wear contact lenses for surgery- glasses are okay if needed. 14. The anesthesiologist will talk with you the day of surgery and will ask you to sign a Consent Form. 15. Refrain from smoking or any type of tobacco use for at least 8 hours and marijuana for 24 hours prior to arrival for your surgery. 16. If a GREEN BLOOD band is given to you, please bring it with you for the day of surgery. 17. Notify your surgeon if you develop any illness before your surgery. 18. If you are staying overnight, please DO NOT BRING your home medications with you. 19. If you have any questions prior to surgery, please call the Preadmission Testing office at [phone], Mon.-Fri. 7 a.m.-3 p.m. Leave a voicemail if needed. Pre-Surgery Instructions: Medication Instructions amLODIPine (NORVASC) 5 mg tablet Take morning of procedure olmesartan (BENICAR) 20 mg tablet Stop taking 0 days prior to procedure ibuprofen (MOTRIN) 400 mg tablet Stop now rmfhsbgt-csru-GX-calcium &mins (THERAGRAN-M) 9 mg iron-400 mcg tablet Stop taking 0 days prior to procedure [place] 05-14-2024 Miscellaneous Notes Preoperative Education Checklist- General Surgery date: 05/15/24 Surgery time: 1015a Arrival time: 815a 1. Bring a photo ID and your insurance card with you the day of surgery. You will check in at the main lobby of the [facility]- registration desk is straight ahead as soon as you walk in. Tell them you are here for surgery. 2. If you have a Living Will/Durable Power of Score Caller for Health Care that is not on file here, please bring a copy the day of surgery. 3. Please shower/bathe the night before surgery with the provided soap or wipes. Do not shower the morning of surgery- you will do use wipes when you arrive here at the hospital before getting into your surgical gown. Do not shave the area of your procedure for 2 days prior to your surgery. 4. NO powder, lotion, perfume/cologne, aftershave, make-up, deodorant, or hair products after you have bathed. 5. NO nail stateless/acrylic on at least one finger. If you are having a hand, wrist or foot surgery then all nail stateless and artificial/acrylic nails must be removed from that hand or foot. 6. Avoid ALL Aspirin and non-steroidal anti-inflammatory drugs and certain vitamins (Ibuprofen, Advil, Aleve, Excedrin, Meloxicam, Celebrex, fish/krill oil, etc.) for 7 days prior to surgery as instructed by your surgeon and/or your prescribing doctor. Tylenol IS ALLOWED. If you are on Ticlid, Xarelto, Eliquis, Pradaxa, Plavix or Coumadin, please check with your prescribing doctor for instructions for when to stop them. 7. If you use an inhaler, continue to use it routinely. 8. Nothing to eat or drink (not even water, gum, mints, or hard candy!) AFTER midnight prior to your surgery. 9. Take only medications that you are instructed to on the morning of surgery with a TINY SIP OF WATER. 10. Choose a responsible adult that will be able to drive you home when you are discharged from your hospital stay for your surgery and can stay with you in your home for 24 hours after your procedure. You must NOT drive any vehicle or operate any machinery for 24 hours after surgery. 11. When you dress for your appointment, please wear loose fitting clothing that is appropriate to accommodate your surgical area procedure. BRING WITH YOU ANY DEVICES YOU MAY NEED: LARRY hose, ice machine, sling/swath, brace or special shoe, oversized zip-up or button up shirt, CPAP machine if staying overnight. 12. Do NOT wear jewelry, watches, or any piercings or metal for surgery- leave these valuables and money at home. 13. Do NOT wear contact lenses for surgery- glasses are okay if needed. 14. The anesthesiologist will talk with you the day of surgery and will ask you to sign a Consent Form. 15. Refrain from smoking or any type of tobacco use for at least 8 hours and marijuana for 24 hours prior to arrival for your surgery. 16. If a GREEN BLOOD band is given to you, please bring it with you for the day of surgery. 17. Notify your surgeon if you develop any illness before your surgery. 18. If you are staying overnight, please DO NOT BRING your home medications with you. 19. If you have any questions prior to surgery, please call the Preadmission Testing office at [phone], Mon.-Fri. 7 a.m.-3 p.m. Leave a voicemail if needed. Pre-Surgery Instructions: Medication Instructions amLODIPine (NORVASC) 5 mg tablet Take morning of procedure olmesartan (BENICAR) 20 mg tablet Stop taking 0 days prior to procedure ibuprofen (MOTRIN) 400 mg tablet Stop now mgehcoty-pdir-QE-calcium &mins (THERAGRAN-M) 9 mg iron-400 mcg tablet Stop taking 0 days prior to procedure documented in this encounter [facility] 05-14-2024 History of Presen t illness Narrative Images from the original note were not included. HISTORY OF PRESENT ILLNESS: Christian Noyola is an 73 y.o. @ female. Chief complaint RT thumb triggering RT Thumb: here to discuss options per Mckenna Pt admits triggering and locking in her RT thumb x 3 weeks 4 days (since 04/18/24). NKI. States it triggers constantly. She has to use other hand to unlock it. Admits weakness and trouble gripping. Denies pain, just soreness. She cannot make a full fist. Admits N/T in her thumb since 04/18/24 occas. Notes occasionally her entire hand will go numb at night but she can shake it off, state this happens on and off for a while before the thumb started triggering. She takes 2 IBU every morning for back issues, has not increased the dose for the thumb. Has tried voltaren gel w/o relief. Admits occas waking at night. Denies swelling. No surgeries on this hand or prior injuries. Pt is RT handed [place]: PCP 05/07/24, cindy, Acute Neurological Problem This is a new problem. The current episode started 1 to 4 weeks ago. The problem has been unchanged. Pertinent negatives include no abdominal pain, chest pain, diaphoresis, fatigue, fever, headaches, nausea, neck pain, vertigo, visual change, vomiting or weakness. She has tried nothing for the symptoms. Pain Pertinent negatives include no abdominal pain, chest pain, diaphoresis, fatigue, fever, headaches, nausea, neck pain, vertigo, visual change, vomiting or weakness. MEDICATION: Current Outpatient Medications on File Prior to Visit Medication Sig Dispense Refill amLODIPine (Norvasc) 5 MG tablet Daily ibuprofen 200 MG tablet Once Multiple Vitamins-Minerals (Multi For Her 50+) tablet as directed Orally alenartan (BENIcar) 20 MG tablet Take 20 mg by mouth in the morning. [DISCONTINUED] baclofen (Lioresal) 10 MG tablet TAKE 1/2 TABLET BY MOUTH EVERY MORNING AND AFTERNOON AND 1 TO 2 TABLETS AT BEDTIME No current facility-administered medications on file prior to visit. MEDICAL HISTORY: Past Medical History: Diagnosis Date Dry eyes April 2024 GERD (gastroesophageal reflux disease) Hepatitis HTN (hypertension) ([facility] [facility]) Hyperlipidemia (CMS/[facility]) ALLERGIES: No Known Allergies VITALS: Visit Vitals Ht 5' 5 Wt 190 lb BMI 31.62 kg/m Smoking Status Never BSA 1.99 m Review of Systems General: Fatigue denies. Fever denies. Night sweats denies. ENT: Decreased hearing denies. Respiratory: Cough denies. Shortness of breath denies. Cardiovascular: Chest pain denies. Cyanosis denies. Irregular heartbeat denies. Gastrointestinal: Comments denies incontinence of stool . Nausea denies. Hematology: Bleeding problems denies. Genitourinary: Comments denies dribbling. Incontinence denies. Musculoskeletal: CommentsSee [facility] for details. Skin: Rash denies. Neurologic: Dizziness denies. Headache denies. Examination General Examination: GENERAL EXAMINATION in no acute distress, well developed, well nourished . HEART: no jugular venous distention . LUNGS: regular unlabored, normal effort . NEUROLOGIC: alert and oriented . PSYCH: oriented to person, place, time and situation . PHYSICAL EXAM: Ortho Exam RIGHT THUMB INSPECTION: locking/catching with flexion/extension. PALPATION: mass present at A1 stephanie , positive tenderness A1 stephanie. STRENGTH: weakness due to pain. ACTIVE RANGE OF MOTION: positive triggering. PASSIVE RANGE OF MOTION: loss of extension at the IP joint, loss ROM. ASSESSMENT: ICD-10-CM 1. Pain of right thumb M79.644 2. Trigger finger of right thumb M65.311 PLAN: I discussed options of surgical and non surgical treatment. Risks/benefits of each and chances for success/ failure. Discussion included but was not limited to the risk of infection, blood clot, failure to improve and need for additional surgery. The patient was advised that surgery is not likely to make them pain free. I answered all of the patients questions. I recommend a RT thumb trigger release. The patient was instructed to marissa the operative site with the word Yes prior to arriving at the hospital and the patient verbalized an understanding. The patient wants to proceed and informed consent is obtained. Dr. Miller obtained history and examined the patient, I am acting as scribe for Dr. Miller/sukhdev Miller D.O. documented in this encounter [facility] 05-13-2024 History of Presen t illness Narrative Images from the original note were not included. Subjective Patient ID: Christian Noyola is a 73 y.o. female. RT Thumb Trigger Finger Dr. Avitia Referral No studies Pt is RT handed Pt admits triggering and locking in her RT thumb x 3 weeks 4 days (since 04/18/24). NKI. States it triggers constantly. She notes she is not doing anything repetitive, denies injury. Admits weakness and trouble gripping. Denies pain, just soreness. She cannot make a full fist. Admits N/T in her thumb since 04/18/24 at least 2-3 times a day, states she can shake it off. Notes her entire hand will go numb at night but she can shake it off, state this happens on and off for a while before the thumb started triggering. She takes 2 IBU every morning for back issues, has not increased the dose for the thumb. Has tried voltaren gel w/o relief. Admits occas waking at night. Denies swelling. No surgeries on this hand or prior injuries. [place]: PCP 05/07/24, cindy, Objective Ortho Exam Hand/Wrist Musculoskeletal Exam Inspection Right Erythema: none Ecchymosis: none Edema: none Palpation Right Triggering: thumb Ring tenderness to palpation: A1 stephanie Range of Motion Range of motion additional comments: Triggering and locking with ROM of the thumb Neurovascular Right Capillary refill: brisk Assessment/Plan Encounter Diagnoses: ICD-10-CM 1. Pain of right thumb M79.644 2. Trigger finger of right thumb M65.311 Discussion of options, she is leaning towards surgery, will have her f/U to discuss surgical intervention. documented in this encounter [facility] 01-24-2024 History of Presen t illness Narrative SPINE SURGERY FOLLOW UP This is a virtual visit using [employer] Zoom Video Visit. It required patient-provider interaction for the medical decision making as documented below. I have communicated my name and active licensure. The patient's identity and physical location were verified at the time of this visit. Either the patient or their legal passenger representative has been informed of the risks [...] visit. Either the patient or their legal passenger representative has been informed of the risks [...] 8:43 AM PAGER: documented in this encounter [facility] 01-24-2024 Note HNO ID: [id number] Author: JORGE DESAI MD Service: ? Author Type: Physician Type: Progress Notes Filed: 01/24/2024 18:28 Note Text: SPINE SURGERY FOLLOW UP This is a virtual visit using [email or web address] Zoom Video Visit. It required patient-provider interaction for the medical decision making as documented below. I have communicated my name and active licensure. The patient's identity and physical location were verified at the time of this visit. Either the patient or their legal passenger representative has been informed of the risks [...] visit. Either the patient or their legal passenger representative has been informed of the risks [...] January 24, 2024 TIME: 8:43 AM PAGER: [facility] 01-24-2024 Telephone encounter Note Signed form faxed to number requested. Faxed verification received. [facility] 01-24-2024 Miscellaneous Notes Signed form faxed to number requested. Faxed verification received. Printed for review and signature. [facility] Progress Note scanned to [facility] for review and signature documented in this encounter [facility] 01-23-2024 Telephone encounter Note Printed for review and signature. [facility] 01-23-2024 Telephone encounter Note [facility] Progress Note scanned to [facility] for review and signature [facility] 01-15-2024 Note HNO ID: [id number] Author: MELONIE GRANADO RT(R) Service: ? Author [...] PATIENT PRESENTS WITH AN IMPLANTABLE OR ATTACHED TRANSPORTATION EQUIPMENT PAINTER: No RADIOLOGY DEPARTMENT: General X-ray: Exam(s) Completed: Spine X-Ray(s): Lumbar AP / LAT / L5-S1 PERIPHERAL IV DATA: Not applicable SIGNED BY: RT Tom(R) January 15, 2024 10:42 AM [facility] 01-15-2024 History of Presen t illness Narrative [...] PATIENT PRESENTS WITH AN IMPLANTABLE OR ATTACHED TRANSPORTATION EQUIPMENT PAINTER: No RADIOLOGY DEPARTMENT: General X-ray: Exam(s) Completed: Spine X-Ray(s): Lumbar AP / LAT / L5-S1 PERIPHERAL IV DATA: Not applicable SIGNED BY: RT Tom(R) January 15, 2024 10:42 AM documented in this encounter [facility] 12-28-2023 Note HNO ID: [id number] Author: LITZY TODD APRN.CNP Service: ? Author Type: Nurse Practitioner Type: [...] which included preparing to see the patient, [id number] patient care, completing clinical documentation, obtaining and/or reviewing separately obtained history, performing a medically appropriate examination, counseling and educating the patient/family/caregiver, and ordering medications, tests, or procedures. SIGNATURE: Litzy Todd APRN.DONTE PATIENT NAME: Christian Noyola DATE: December 28, 2023 TIME: 12:52 PM PAGER: [facility] 12-28-2023 History of Presen t illness Narrative [...] which included preparing to see the patient, [id number] patient care, completing clinical documentation, obtaining and/or reviewing separately obtained history, performing a medically appropriate examination, counseling and educating the patient/family/caregiver, and ordering medications, tests, or procedures. SIGNATURE: Litzy Todd APRN.CNP PATIENT NAME: Christian Noyola DATE: December 28, 2023 TIME: 12:52 PM PAGER: documented in this encounter [facility] 12-18-2023 Telephone encounter Note Called patient. Patient reported a 101 degree fever with chills, Saturday 12/16. Patient reports that Today she feels better and has no fever. Patient denies any redness, swelling, or drainage with her incision. Patient instructed to call us back with any changes or If her fever/ chills return. [facility] 12-18-2023 Miscellaneous Notes Called patient. Patient reported a 101 degree fever with chills, Saturday 12/16. Patient reports that Today she feels better and has no fever. Patient denies any redness, swelling, or drainage with her incision. Patient instructed to call us back with any changes or If her fever/ chills return. Pt phoned reporting fever with chills on Saturday 12/16 post op. Surgery was Thursday 12/14. Please call and advise Pt phone # [phone] documented in this encounter [facility] 12-18-2023 Telephone encounter Note Pt phoned reporting fever with chills on Saturday 12/16 post op. Surgery was Thursday 12/14. Please call and advise Pt phone # [phone] [facility] 12-16-2023 Note HNO ID: [id number] Author: MAURIZIO FITCH RN Service: Nursing Author Type: Registered Nurse Type: Progress Notes Filed: 12/16/2023 15:19 Note Text: Pt dc home with daughter , all needs met questions answered pt verb understanding [facility] 12-16-2023 Note HNO ID: [id number] Author: LUCIANO BOSCH MD Service: General Internal [...] DATE: December 16, 2023 TIME: 11:48 AM [facility] 12-16-2023 Note HNO ID: [id number] Author: NOTE, INTERFACE, ? Service: ? Author Type: ? Type: Progress Notes Filed: 12/16/2023 03:26 Note Text: Epic Scheduled Downtime: 12/16/2023 1:00:00 AM to 12/16/2023 3:02:00 AM [facility] 12-15-2023 Note HNO ID: [id number] Author: NILDA BORGES APRN.FENCE INSTALLER Service: ? Author Type: Nurse Garde Manager Type: Anesthesia Procedure Notes Filed: 12/15/2023 11:39 Note Text: ANESTHESIOLOGY PROCEDURE NOTE Airway General Information Procedure Start Time/Medication Administration: 12/15/2023 11:27 AM Procedure End Time: 12/15/2023 11:27 AM Patient location during procedure: OR Staffing FENCE INSTALLER: Nilda Borges APRN.FENCE INSTALLER Performed by: ROBINSON Indications and Patient Condition Indications for airway [...] 1 Airway not difficult SIGNATURE: Nilda Borges APRN.FENCE INSTALLER PATIENT NAME: Christian Noyola DATE: December 15, 2023 TIME: 11:39 AM CSN: [id number] [facility] 12-05-2023 Telephone encounter Note Spoke with patient and answered questions. Patient also needs a refill of gabapentin. Confirmed pharmacy. [facility] 12-05-2023 Miscellaneous Notes Spoke with patient and answered questions. Patient also needs a refill of gabapentin. Confirmed pharmacy. Patient would like to speak to the nurse regarding her medications before her surgery on December 14. She can be reached at [phone] documented in this encounter [facility] 12-05-2023 Telephone encounter Note Patient would like to speak to the nurse regarding her medications before her surgery on December 14. She can be reached at [phone] [facility] 11-15-2023 Instructions Georgette Santos APRN.SHIP BOAT OR BARGE MATE - 11/15/2023 1:10 PM EDT PATIENT PREOPERATIVE INSTRUCTIONS Jorge Desai MD has scheduled you for your procedure at this surgery center: [facility]: [phone] --[address] [place] [address]. On your scheduled day of surgery, please [...] Procedures: - YOU MUST HAVE A RESPONSIBLE LOGISTICS SOLUTION MANAGER TAKE YOU HOME. A DESK PENS ASSEMBLER OR FOOD SERVICE ASSOCIATE CANNOT BE MADE A RESPONSIBLE LOGISTICS SOLUTION MANAGER. - We recommend that a responsible person [...] Advance Directive, please fax a copy to [phone] or email to for it to be [...] scanned into your chart that day. Georgette Santos APRN.DONTE documented in this encounter [facility] 11-15-2023 History and physical note [...] 35 kg/m^2 Non-male patient STOP-Bang Score: 3 [id number] Score: Age: 65-74 Sex: female CHF history: No Hypertension history: Yes Stroke/TIA/thromboembolism history: No Vascular disease history: No Diabetes history: No [id number] Score: 3 ARISCAT Score: Age: 51-80 Preoperative [...] Eaton present: no Lip Bite Test: II Microretrognathia/Micronagthia/ Recessed Chin: No DENTAL Dental findings: teeth intact. [...] Admin: COVID-19 vaccine, age 12+ yr, season ([employer]) 11/04/2022 Imm Admin: COVID-19 vaccine, age 12+ yr, bivalent ([employer]) 04/25/2022 Imm Admin: COVID-19 vaccine, age 12+ yr, bivalent ([employer]) 02/15/2022 Imm Admin: COVID-19 original vaccine, age 12+ yr, monovalent ([employer] - STAPLETON TOP) 05/08/2021 Imm Admin: COVID-19 original vaccine, age 12+ yr, monovalent ([employer] - PURPLE TOP) Only the first 5 history entries have been loaded, but more history exists. REVIEW OF SYSTEMS: PAIN ASSESSMENT: Pain Pain Level: 2 Pain Location: Back-Lower Description: Radiating, Sore, Tingling Duration Units: Years Frequency: Continuous General: No weight loss, malaise or fevers. Neuro: No history of TIA's, stroke, HUMAN RESOURCES CLERK tumor, impaired sensorium, hemiplegia, paraplegia or quadraplegia. No neurological symptoms or problems. Respiratory: No history of current cough or dyspnea, or pneumonia in the past 6 weeks. No history of respiratory/pulmonary symptoms or problems. Cardiovascular: Positive for: Hypertension no history of angina, CHF, MO, cardiac surgery or stents. Denies rest pain, gangrene or revascularization/amputation for PVD GI: No history of GI symptoms or problems. No history of esophageal varices, recent ascites, or ETOH greater than 2 drinks per day. : No history of dysuria, frequency or incontinence,, stones or chronic kidney disease, No difficulty urinating, nocturia > 1 time per night or hematuria SPRING ASSEMBLER SUPERVISOR: Negative for abnormal vaginal bleeding, abnormal vaginal [...] and voices comprehension and compliance. SIGNATURE: Georgette Santos APRN.DONTE PATIENT NAME: Christian Noyola DATE: 11/15/2023 TIME: 1:27 PM [facility] 11-15-2023 History and physical note [...] 35 kg/m^2 Non-male patient STOP-Bang Score: 3 [id number] Score: Age: 65-74 Sex: female CHF history: No Hypertension history: Yes Stroke/TIA/thromboembolism history: No Vascular disease history: No Diabetes history: No [id number] Score: 3 ARISCAT Score: Age: 51-80 Preoperative [...] Eaton present: no Lip Bite Test: II Microretrognathia/Micronagthia/ Recessed Chin: No DENTAL Dental findings: teeth intact. [...] COVID-19 original vaccine, age 12+ yr, monovalent ([employer] - STAPLETON TOP) 05/08/2021 Imm Admin: COVID-19 original vaccine, age 12+ yr, monovalent ([employer] - PURPLE TOP) Only the first 5 history entries have been loaded, but more history exists. REVIEW OF SYSTEMS: PAIN ASSESSMENT: Pain Pain Level: 2 Pain Location: Back-Lower Description: Radiating, Sore, Tingling Duration Units: Years Frequency: Continuous General: No weight loss, malaise or fevers. Neuro: No history of TIA's, stroke, HUMAN RESOURCES CLERK tumor, impaired sensorium, hemiplegia, paraplegia or quadraplegia. No neurological symptoms or problems. Respiratory: No history of current cough or dyspnea, or pneumonia in the past 6 weeks. No history of respiratory/pulmonary symptoms or problems. Cardiovascular: Positive for: Hypertension no history of angina, CHF, MO, cardiac surgery or stents. Denies rest pain, gangrene or revascularization/amputation for PVD GI: No history of GI symptoms or problems. No history of esophageal varices, recent ascites, or ETOH greater than 2 drinks per day. : No history of dysuria, frequency or incontinence,, stones or chronic kidney disease, No difficulty urinating, nocturia > 1 time per night or hematuria SPRING ASSEMBLER SUPERVISOR: Negative for abnormal vaginal bleeding, abnormal vaginal [...] and voices comprehension and compliance. SIGNATURE: Georgette Santos APRN.CNP PATIENT NAME: Christian Noyola DATE: 11/15/2023 TIME: 1:27 PM documented in this encounter [facility] 09-05-2023 Miscellaneous Notes Surgery date moved to 12/15/23. Patient called to speak with Dr Desai's nurse. She would like to accept a surgery date of MondayDecember 14. She will wait for it to show up on her MyChart. documented in this encounter [facility] 09-04-2023 Note HNO ID: [id number] Author: JORGE DESAI MD Service: ? Author [...] 5 4 Pain Location: Leg-Right Back Description: Pressure;Radiating;Sore;Tightne ss Sore;Radiating;Other: See comment Duration Units: Hours -- [...] of the proc (more content not included)... [facility] 06-19-2023 Evaluation note Encounter Date Diagnosis Assessment [...] ARB and increase Amlodipine to 5mg bid [facility] 11-09-2023 Evaluation note* Encounter Date Diagnosis Assessment Notes Treatment Notes Treatment Clinical Notes May, Primary hypertension (ICD-10 - I10) [facility] 11-02-2023 Evaluation note* Encounter Date Diagnosis [...] and applesauce. Stool softener and Miralax optional [facility] 09-12-2023 Evaluation note* Encounter Date Diagnosis Assessment Notes Treatment Notes Treatment Clinical Notes Mar, Primary hypertension (ICD-10 - I10) [facility] 08-13-2023 Evaluation note* Encounter Date Diagnosis Assessment Notes Treatment Notes Treatment Clinical Notes Feb, Primary hypertension (ICD-10 - I10) [facility] 08-03-2023 Evaluation note* Encounter Date Diagnosis Assessment Notes Treatment Notes Treatment Clinical Notes Feb, Primary hypertension (ICD-10 - I10) [facility] 05-30-2023 NoteCONSULTATION CONSULTATION DATE: 12/06/2022 TO: Jordan Ball, D.O. CHIEF COMPLAINT: Includes bilateral lower back [...] our patients to inform us about any azsn-qrd-xhbgfwj medications or herbal remedies/nutritional supplements/alternative remedies. 2. [...] treatment options with their primary care provider.[id number] Note CONSULTATION CONSULTATION DATE: 11/03/2022 TO: Jordan Avitia D.O. HISTORY: Patient returns today complaining of [...] our patients to inform us about any igmp-xsi-npdebsg medications or herbal remedies/nutritional supplements/alternative remedies. 2. [...] treatment options with their primary care provider.[id number] Note CONSULTATION CONSULTATION DATE: 10/06/2022 TO: Jordan Avitia D.O. CHIEF COMPLAINT: Includes severe left lower [...] regimen of Neurontin 300 mg b.i. d.[id number] Miscellaneous Notes* Telephone Encounter - Debbi Brizuela RN - 09/09/2022 2:52 PM EST Will forward for review. Scan on 09/08/2022 2:37 PM by External Provider: Spine Injection * Telephone Encounter - Tanya Navarro - 09/09/2022 2:44 PM EST Received spine injection report by fax. Scanned to patient's chart for provider review. [facility] NoteCONSULTATION CONSULTATION DATE: 09/08/2022 HISTORY: This is a very pleasant, 72-year-old female who returns to the clinic, status post lumbar epidural steroid injection completed on 08/02/2022. The patient states she received 25% relief for 2-3 weeks. Patient was seen by Dr. Desai at the [facility] Neurosurgery. The patient does have [...] care will be established at that time.[facility] 09-05-2022 History of Present illness Narrative* Jorge [...] direction and in the presence of Jorge eDsai MD on September 05, 2022 at 1:23 PM. [facility] NoteCONSULTATION CONSULTATION DATE: 07/19/2022 HISTORY OF PRESENT ILLNESS: This is a very pleasant, 72-year-old female who was referred to us by Dr. Sreekanth Avitia. The patient has had chronic low back [...] The patient is hoping to go to [place] in a few weeks. We have also strongly recommended to the patient for a neurosurgical consult, given the multiple levels the patient has pathology. I believe the surgical consult will also help define for the patient progression components. In the interim, the patient will also continue with extension exercises. The patient understands and would like to proceed. CC: Jordan Avitia D.O.[facility] note* Diagnosis Degenerative scoliosis- Primary documented in this encounter [facility] noteNo [employer] Other Evaluation note* Diagnosis Pre-op testing- Primary Preoperative examination, unspecified Spinal stenosis, lumbar region with neurogenic claudication documented in this encounter [facility] note* Diagnosis Pre-op evaluation- Primary Preoperative examination, unspecified Pre-op testing Preoperative examination, unspecified Primary hypertension Unspecified essential hypertension Pain in right hip Pain in joint, pelvic region and thigh Pain, unspecified Spinal stenosis, lumbar region with neurogenic claudication * Assessment & Plan Note - Georgette Santos APRN.CNP - 11/15/2023 12:41 PM EDTAssociated Problem(s): Primary hypertension Assessment: Stable on medication Today To take medication morning of surgery documented in this encounter [facility] note* Diagnosis S/P lumbar fusion- Primary Arthrodesis status documented in this encounter [facility] note* Diagnosis S/P lumbar fusion Arthrodesis status documented in this encounter [facility] note* Diagnosis Lumbar stenosis with neurogenic claudication- Primary Spinal stenosis, lumbar region, with neurogenic claudication [facility] Diagnosis Onset Date Resolution Status GERD (gastroesophageal reflux disease) acute Hypercholesterolemia acute Hypertension acute Lumbar spondylosis acute Multiple sclerosis acute Medicare annual wellness visit, subsequent noneactive Screening mammogram for breast cancer noneactive [facility] Work Phone: Evaluation note* Diagnosis Onset Date Resolution Status GERD (gastroesophageal reflux disease) acute Hypercholesterolemia acute Hypertension acute Lumbar spondylosis acute Medicare annual wellness visit, subsequent noneactive Screening mammogram for breast cancer noneactive [facility] Work Phone: Evaluation note* Diagnosis Onset Date Resolution Status GERD (gastroesophageal reflux disease) acute Hypercholesterolemia acute Hypertension acute Lumbar spondylosis acute Medicare annual wellness visit, subsequent noneactive Screening mammogram for breast cancer noneactive IFG (impaired fasting glucose) acute Trigger finger acute [facility] Work Phone: Evaluation note* Diagnosis Pain of right thumb- Primary Trigger finger of right thumb documented in this encounter [facility]* Diagnosis Pain of right thumb- Primary Trigger finger of right thumb documented in this encounter [facility] note* Diagnosis Trigger finger of right thumb- Primary documented in this encounter [facility]* Diagnosis S/P trigger finger release- Primary documented in this encounter [facility]* Diagnosis S/P trigger finger release- Primary Carpal tunnel syndrome of right wrist documented in this encounter [facility] HealthcareHistory general Narrative - Reported* Type Description Date Medical History MS (multiple sclerosis) Medical History Gastroesophageal ref lux disease with esophagitis without hemorrhage Medical History Primary hypertension Medical History Valgus deformity, not elsewhere classified, right ankle Medical History Arthritis of right shoulder syed on Medical History Lumbar spondylosis Medical History Hyperlipidemia type II Surgical History back surgery x's 2 Hospitalization History SEE SURGICAL HX [facility] Other Hospital Discharge instructionsAmbulatory Orders* Referral to Orthopedic Surgery Location: None Selected [facility] Work Phone: InstructionsNot on filedocumented in this encounter [facility] System[facility] (narrative)* Outpatient Procedure (Routine) - Pending Review Specialty Diagnoses / Procedures Referred By Paco ward Referred To [facility] Diagnoses Pre-op evaluation Pre-op testing Procedures ECG COMPLETE ECG ROUTINE ECG W/LEAST 12 LDS W/I&R Georgette Santos TRIM ATTACHER.SHIP BOAT OR BARGE MATE [address] [place] [address] [facility] [place] [address] [place] [address] Referral ID Status Reason Start Date Expiration Date Visits Requested Visits Authorized [id number] Pending Review Auto-Generat ed Referral 11/15/2023 11/14/2024 1 1 [facility] for referral (narrative)* Diagnostic Procedure Only (Routine) - Pending Review Specialty Diagnoses / Procedures Referred By Contac t Referred To Contact XR IMAGING Diagnoses S/P lumbar fusion Procedures XR LUMBAR LIMITED 2V AP/LAT RADEX SPINE LUMBOSACRAL 2/3 VIEWS Litzy Todd TRIM ATTACHER.SHIP BOAT OR BARGE MATE [address] [place] [address] [place] [id number] Referral ID Status Reason Start Date Expiration Date Visits Requested Visits Authorized [id number] Pending Review Auto-Generat ed Referral 12/28/2023 01/26/2025 1 1 * Physical Therapy (Routine) - Authorized Specialty Diagnoses / Procedures Referred By Contac t Referred To Contact [facility] Diagnoses S/P lumbar fusion Procedures CONSULT TO PHYSICAL THERAPY PHYSICAL THERAPY EVALUATION HIGH COMPLEX 45 MINS Litzy Todd TRIM ATTACHER.SHIP BOAT OR BARGE MATE [address] [place] [address] [facility] [place] [address] [place] [address] Referral ID Status Reason Start Date Expiration Date Visits Requested Visits Authorized [id number] Authorized PCP Requested Referral Auto-Generate d Referral 12/28/2023 12/27/2024 99 99 [facility] for referral (narrative)* Diagnostic Procedure Only (Routine) - Closed Specialty Diagnoses / Procedures Referred By Contac t Referred To Contact XR IMAGING Diagnoses S/P lumbar fusion Procedures XR LUMBAR LIMITED 2V AP/LAT RADEX SPINE LUMBOSACRAL 2/3 VIEWS Litzy Todd, TRIM ATTACHER.SHIP BOAT OR BARGE MATE [address] [place] [address] [place] [address] Referral ID Status Reason Start Date Expiration Date V isits Requested Visits Authorized [id number] Closed Auto-Generate d Referral 12/28/2023 01/26/2025 1 1 [facility] for visit Narrative* Diagnostic Procedure Only (Routine) - Closed Specialty Diagnoses / Procedures Referred By Contac t Referred To Contact XR IMAGING Diagnoses S/P lumbar fusion Procedures XR LUMBAR LIMITED 2V AP/LAT RADEX SPINE LUMBOSACRAL 2/3 VIEWS Litzy Todd, TRIM ATTACHER.SHIP BOAT OR BARGE MATE [address] [place] [id number] [place] [address] Referral ID Status Reason Start Date Expiration Date V isits Requested Visits Authorized [id number] Closed Auto-Generate d Referral 12/28/2023 01/26/2025 1 1 [facility] Summary Purpose Family History Relationship Condition Age at Onset Recorded Date/T flora father Unknown Diabetes mellitus Unknown Malignant neoplasm Unknown father Malignant neoplasm Unknown mother Unknown Heart disease Unknown Hypertension Unknown Advance Directives Documents on File Type Date Recorded Patient Card Placer Expl anation Advance Directive(s) 12/15/2023 7:18 AM Documents on File Type Date Recorded Patient Card Placer Expl anation Advance Directive(s) 12/15/2023 7:18 AM Advance Directive Response Recorded Date/ Time Advance Directives No February 07 024 10:53am Reason for Referral Specialty Diagnoses / Procedures Referred By Contac t Referred To Contact Diagnoses Pre-op testing Procedures REFER TO PACC - PRE ANESTHESIA CONSULTATION CLINIC OFFICE/OUTPATIENT NEW HIGH MDM 60 MINUTES Jodi Vega PA-C [address] [facility]. [place] [id number] Referral ID Status Reason Start Date Expiration Date Visits Requested Visits Authorized [id number] Authorized PCP Requested Referral 09/05/2023 09/04/2024 1 1 Chief Complaint and Reason for Visit Chief Complaint medicare wellness Reason for Visit GERD (gastroesophage al reflux disease) Hypercholesterolemia Hypertension Lumbar spondylosis Multiple sclerosis Medicare annual wellness visit, subsequent Screening mammogram for breast cancer Chief Complaint medicare wellness stiff thumb Reason for Visit GERD (gastroesophage al reflux disease) Hypercholesterolemia Hypertension Lumbar spondylosis Medicare annual wellness visit, subsequent Screening mammogram for breast cancer Chief Complaint medicare wellness stiff thumb Reason for Visit GERD (gastroesophage al reflux disease) Hypercholesterolemia Hypertension Lumbar spondylosis Medicare annual wellness visit, subsequent Screening mammogram for breast cancer IFG (impaired fasting glucose) Trigger finger Additional Source Comments INFORMATION SOURCE (unrecogn ized section and content) DATE CREATED AUTHOR 08/26/2021 [facility] DATE CREATED AUTHOR AUTHOR'S ORGANIZ ATION 12/16/2022 [facility] DATE CREATED AUTHOR AUTHOR'S ORGANIZ ATION 02/28/2023 [facility] DATE CREATED AUTHOR AUTHOR'S ORGANIZ ATION 12/18/2023 [facility] DATE CREATED AUTHOR AUTHOR'S ORGANIZ ATION 01/16/2024 [facility] DATE CREATED AUTHOR AUTHOR'S ORGANIZ ATION 01/28/2024 [facility] DATE CREATED AUTHOR AUTHOR'S ORGANIZ ATION 05/16/2024 [facility] DATE CREATED AUTHOR AUTHOR'S ORGANIZ ATION 06/20/2024 [facility] EPIC Source Comments (unrecognize d section and content) In the event this informatio n is protected by the Federal Confidentiality of Alcohol and Drug Abuse Patient Records regulations: The Federal rules restrict any use of the information to criminally investigate or prosecute any alcohol or drug abuse patient.[facility] Center[facility] the event this information is protected by the Federal Confidentiality of Alcohol and Drug Abuse Patient Records regulations: The Federal rules restrict any use of the information to criminally investigate or prosecute any alcohol or drug abuse patient.[facility] CenterIn the event this information is protected by the Federal Confidentiality of Alcohol and Drug Abuse Patient Records regulations: The Federal rules restrict any use of the information to criminally investigate or prosecute any alcohol or drug abuse patient.[facility] Center[facility] the event this information is protected by the Federal Confidentiality of Alcohol and Drug Abuse Patient Records regulations: The Federal rules restrict any use of the information to criminally investigate or prosecute any alcohol or drug abuse patient.[facility] CenterIn the event this information is protected by the Federal Confidentiality of Alcohol and Drug Abuse Patient Records regulations: The Federal rules restrict any use of the information to criminally investigate or prosecute any alcohol or drug abuse patient.[facility] Center[facility] the event this information is protected by the Federal Confidentiality of Alcohol and Drug Abuse Patient Records regulations: The Federal rules restrict any use of the information to criminally investigate or prosecute any alcohol or drug abuse patient.[facility] CenterIn the event this information is protected by the Federal Confidentiality of Alcohol and Drug Abuse Patient Records regulations: The Federal rules restrict any use of the information to criminally investigate or prosecute any alcohol or drug abuse patient.[facility] CenterIn the event this information is protected by the Federal Confidentiality of Alcohol and Drug Abuse Patient Records regulations: The Federal rules restrict any use of the information to criminally investigate or prosecute any alcohol or drug abuse patient.[facility] CenterIn the event this information is protected by the Federal Confidentiality of Alcohol and Drug Abuse Patient Records regulations: The Federal rules restrict any use of the information to criminally investigate or prosecute any alcohol or drug abuse patient.[facility] CenterIn the event this information is protected by the Federal Confidentiality of Alcohol and Drug Abuse Patient Records regulations: The Federal rules restrict any use of the information to criminally investigate or prosecute any alcohol or drug abuse patient.[facility] CenterIn the event this information is protected by the Federal Confidentiality of Alcohol and Drug Abuse Patient Records regulations: The Federal rules restrict any use of the information to criminally investigate or prosecute any alcohol or drug abuse patient.[facility] CenterIn the event this information is protected by the Federal Confidentiality of Alcohol and Drug Abuse Patient Records regulations: The Federal rules restrict any use of the information to criminally investigate or prosecute any alcohol or drug abuse patient.[facility] Reason for Visit (unrecogniz ed section and content) Reason Comments New Reason Comments Received Outside Medical Records Reason Comments Surgery Date Specialty Diagnoses / Procedures Referred By Contac t Referred To Contact Diagnoses Pre-op testing Procedures REFER TO PACC - PRE ANESTHESIA CONSULTATION CLINIC OFFICE/OUTPATIENT NEW HIGH MDM 60 MINUTES Jodi Vega PA-C [address] [place] [address] Referral ID Status Reason Start Date Expiration Date V isits Requested Visits Authorized [id number] Closed PCP Requested Referral 09/05/2023 09/04/2024 1 1 Reason Comments Post Op Reason Comments Radiology XR Reason Comments Setup Technician - Other Reason Comments Follow Up Reason Comments Fever Reason Comments Pain Care Teams (unrecognized sec tion and content) Team Status: Active Member Role Status Dates Jordan Avitia , Primary Care Provider Active Team Status: Inactive Member Role Status Dates Jordan Avitia DO Primary Care Provide r, Attending Provider Active Start: February 08, 2024 End: February 08, 2024 Team Status: Active Member Role Status Dates Jordan Avitia DO Primary Care Provide r, Attending Provider Active Start: April 11, 2024 Team Status: Inactive Member Role Status Dates Jordan Avitia DO Primary Care Provide r, Attending Provider Active Start: May 07, 2024 End: May 07, 2024 Auto Body Mechanic Relationship Specialty Start Date End Date Jordan Avitia MD [address] [place] [id number] PCP - General Internal Medicine 05/08/23 Auto Body Mechanic Relationship Specialty Start Date End Date Jordan Avitia MD [address] [place] [address] PCP - General Internal Medicine 05/08/23 Auto Body Mechanic Relationship Specialty Start Date End Date Jordan Avitia MD [address] [place] [address] PCP - General Internal Medicine 05/08/23 Auto Body Mechanic Relationship Specialty Start Date End Date Jordan Avitia MD [address] [place] [address] PCP - General Internal Medicine 05/08/23 Auto Body Mechanic Relationship Specialty [place] [address] [place], [place] [id number] PCP - General Internal Medicine 05/14/24 Auto Body Mechanic Relationship Specialty Start Date End Date Jordan Avitia MD [address] [place] [address] PCP - General Internal Medicine 05/08/23 Auto Body Mechanic Relationship Specialty Start Date End Date Jordan Avitia MD [address] [place] [address] PCP - General Internal Medicine 05/08/23 Auto Body Mechanic Relationship Specialty Start Date End Date Jordan Avitia MD [address] [place] [address] PCP - General Internal Medicine 05/08/23 Goals (unrecognized section and content) Goals may [...] BE BASED ON THE PRIMARY CLINICAL RECORDS. [employer] provides no warranty or guarantee of the accuracy or completeness of information in this document.
== END 2024-08-01 10:11 | disposition home or self-care (01) ==
LOC: MAMMO 10:11
PROVIDERS: PCP Internal Medicine; Visit Provider Internal Medicine
DX: Z12.31 Encounter for screening mammogram for malignant neoplasm of breast (principal); Z80.8 Family history of malignant neoplasm of other organs or systems; Z80.3 Family history of malignant neoplasm of breast
CPT/HCPCS: 77063; 77067

== ENCOUNTER 2025-02-15 08:50 | Outpatient (OUT) | payer MEDICARE, SELFPAY ==
--- NOTE | 2025-02-15 | US_ITS ---
The [address] [address] Patient Name: CHRISTIAN FISCHER MRN: [id number] date: 1950 Sex: F Assigned Patient Location: US Current Patient Location: Accession/Order Number: [id number] Exam Date: 02/15/2025 09:43 Report Date: 02/15/2025 09:46 At the request of: BERNADETTE AVITIA DO Procedure: US pelvis Pelvic ultrasound. Reason for exam: Abnormal CT of pelvis Comparison: No CT is available for direct comparison. Patient states last CT was in 2017. Technique: Transabdominal imaging of the uterus and ovaries was performed. Additional spectral Doppler analysis of the ovaries was also obtained. Findings: Uterus measures 7.2 x 2.6 x 3.9 cm. No measurable fibroid. Endometrium measures 4 mm without focal abnormality. Right ovary is not visualized. Left ovary measures 1.8 x 0.9 x 1.9 cm without mass or cyst. Normal arterial and venous Doppler waveforms. No free fluid. US/US pelvis Impression: Right ovary not visualized. Otherwise unremarkable ultrasound. Impression dictated by: Ochoa Pedraza Jr., D.O. 02/15/2025 9:46 AM Dictation Location[facility] Electronically authenticated by: [id number] Date: 02/15/2025 09:46
--- OUTSIDE RECORDS SUMMARY | 2025-02-15 08:56 | XMS_ITS | CCD ---
Author Organization [facility] Care Team Providers Care Packing Supervisor Name Role Phone Unavailable Primary Care Provider Unavailabl e LAKSHMIPATHY ., NARENDRANATH Consulting Demi vailable HALKER ., ELIDIA Attending Unavailable HALKER ., ELIDIA Admitting Unavailable BALL, DR FLEMING Primary Care Unavailable LAKSHMIPATHY ., NARENDRANATH Consulting Demi vailable LAKSHMIPATHY ., NARENDRANATH Attending Demi vailable LAKSHMIPATHY ., NARENDJUAN DAVIDATH Admitting Demi vailable ADORE, DR FLEMING Primary Care Unavailable LAKSHMIPATHY ., NARENDRANATH Consulting Demi vailable LAKSHMIPATHY ., NARENDRANATH Attending Demi vailable LAKSHMIPATHY ., NARENDRANATH Admitting Demi vailable BALL, DR FLEMING Primary Care Unavailable LAKSHMIPATHY ., NARENDRANATH Consulting Demi vailable LAKSHMIPATHY ., NARENDRANATH Attending Demi vailable LAKSHMIPATHY ., NARENDRANATH Admitting Demi vailable ADORE, DR FLEMING Primary Care Unavailable LAKSHMIPATHY ., NARENDRANATH Consulting Demi vailable LAKSHMIPATHY ., NARENDRANATH Attending Demi vailable LAKSHMIPATHY ., NARENDRANATH Admitting Demi vailable ADORE, DR FLEMING Primary Care Unavailable GREWAL ., NEHA Consulting Unavailable LAKSHMIPATHY ., NARENDRANATH Admitting [...] Unavailable ADORE, DR FLEMING Primary Care Unavailable JEDEBGLADYS, DR BONNY Jain Consulting Unavailable APLING, EULA Perez Admitting Unavailable APLING, EULA Perez Attending Unavailable APLING, EULA Perez Consulting Unavailable NEHA MAN Attending Unavailable NEHA MAN Admitting Unavailable ADORE, DR FLEMING Primary Care Unavailable Jordan Avitia Hiwot PAYAN, Jessica Tavarez Attending Unavailable Unavailable Primary Care Provider Unavailabl e HABBOUB, JORGE Attending Unavailable HABBOUB, JORGE Admitting Unavailable LUCIANO BSOCH Consulting UnavailLITZY Graham Referring Unavailable LITZY TODD Attending Unavailable GEORGETTE SANTOS Referring Unavailable HABBOUB, JORGE Referring Unavailable HABBOUB, JORGE Attending Unavailable LITZY TODD Attending Unavailable SELF Referring Unavailable HABBOUB, JORGE Attending Unavailable Jordan Avitia MD Primary Care Provider JORDAN AVITIA Primary Care Unavailable ROSSANA MILLER Referring Unavailable JORDAN AVITIA Primary Care Unavailable ROSSANA MILLER Admitting Unavailable ANGELA, ROSSANA Antoine Attending Unavailable JULIANNA HALL Attending Unavailable APLING, EULA Perez Attending Unavailable ANGELA, ROSSANA Antoine Attending Unavailable APLING, EULA Perez Attending Unavailable APLING, EULA Perez Attending Unavailable Jordan Avitia DO Primary Care Provider Jordan Avitia DO Primary Care Provider [phone] Jordan Avitia DO Attending Provider Allergies Allergy Classification Reported Allergen(s) Allergy Type Date of Onset Reaction(s) Facility (5 sources) patient allergy list reviewed by nurse or physicia Propensity to adverse reactions 6 Comment:Done [facility] Other (5 sources) Allergies Reconciled Propensity to adverse reactions Unknown [facility] Other Medications Current Medications Medication Drug Class(es) Dates Sig (Normalized) Sig (Original) acetaminophen 325 mg / HYDROcodone bitartrate 5 mg oral tablet (1 source) Opioid Agonist Start: 05-14-2024 End: 05-17-2024 take 1 tablet by mouth every six hours for pain HYDROcodone-acetam inophen (Tye) 5-325 MG tablet Indications: Trigger finger of right thumb Take 1 tablet by mouth every 6 (six) hours if needed for severe pain for up to 3 days 12 tablet 05/14/2024 05/17/2024 Active acetaminophen 325 mg / oxyCODONE hydrochloride 5 mg oral tablet (1 source) Opioid Agonist Start: 12-16-2023 End: 12-23-2023 take 1 tablet by mouth every six hours as needed for pain oxyCODONE-acetamin ophen (PERCOCET) 5-325 mg tablet Indications: S/P lumbar spinal fusion Take 1 tablet by mouth every 6 hours as needed for pain for up to 7 days. 28 tablet 0 12/16/2023 12/23/2023 Active baclofen 10 mg oral tablet (20 sources) gamma-Aminobutyr ic Acid-ergic Agonist Start: 04-28-2023 End: 05-13-2024 take [...] day Active take 2 tablets by mo [facility] once daily at bedtime Baclofen 10 [...] TAB PO Daily February 08, 2024 12:00am Calcium Carbonate-Vitamin D2 500 mg(1,250mg) -200 unit tablet (1 source) Start: 02-08-20 take 1 tablet by mouth once daily Calcium Carbonate-Vitamin D2 500 mg(1,250mg) -200 unit tablet Active TAB PO Daily February 08, 2024 12:00am Complies with drug therapy gabapentin 300 mg oral capsule (20 sources) [...] on above: Take 1 capsule by mo [facility] twice daily for 90 days. Take 1 capsule by [facility] two times a day for 90 days. ibuprofen 200 mg oral tablet (20 sources) Nonsteroidal Anti-inflammatory Drug Start: 02-08-2024 ibuprofen 200 MG tablet Once 02/08/2024 Active Start: 02-08-2024 take 2 tablets by [facility] once as needed Ibuprofen 200 mg tablet Active 400 MG PO Once as needed February 08, 2024 12:00am Complies with drug therapy Start: 02-08-2024 take 400 mg by mouth once Ibup rofen Active 400 MG PO Once February 08, 2024 12:00am Start: 09-26-2021 take 2 tablets by [facility] once daily at mealtime as needed Ibuprofen 200 MG 2 tablets with food or milk as needed Orally once a day Sep, Active Start: 09-26-2021 Ibuprofen 200M G Ibuprofen( 200MG Oral as needed ) Active -Hx Entry Oral as needed Sep, Active take 1 tablet by [facility] every six hours as needed for pain [...] Her 50+) tablet as directed Orally Active usnkppki-niyy-TQ-calci um &mins (THERAGRAN-M) 9 mg iron-400 mcg tablet (1 source) aqtnuyyz-lwld-EO -calci um &mins (THERAGRAN-M) 9 mg iron-400 mcg tablet Take 1 tablet by mouth in the morning. Active Aizhycsobtco-Cv-Mdhx-M inerals (3 sources) Start: 02-08-2024 Zivhxiqtpxqs-Je-Acex-M inerals Active TAB PO February 08, 2024 12:00am Ohablftaoftb-Pz-Bfhh-M inerals tablet (1 source) Start: 02-08-2024 Eitxfkwrihht-Dc-Muoa-M inerals tablet Active TAB PO February 08, 2024 12:00am Complies with drug therapy mupirocin 0.02 mg/mg topical ointment (4 sources) [...] (20 sources) Angiotensin 2 Receptor Lea Start: 05-27-2024 take 1 tablet by mouth once daily Olmesartan 20 mg tablet Active 20 MG PO Daily 90 90 May 27, 2024 2:00pm Complies with drug therapy Start: 03-21-2023 End: 05-27-2024 take 1 tablet by mouth in the morning olmesartan (BENICAR) 20 mg tablet Take 1 tablet (20 mg total) by mouth in the morning. 03/07/2024 Active Comment on above: TAKE 1 TABLET [...] Calcium Channel Lea Start: 09-02-2023 End: 02-08-2024 take 1 tablet by mouth once daily Amlodipine 5 mg tablet Discontinued 5 MG PO Daily February 08, 2024 11:13am February 08, 2024 11:26am Start: 01-27-2023 take 1 tablet by jason [...] HMG-CoA Reductase Inhibitor Start: 09-04-19 End: 11-15-19 rosuvastatin (CRESTOR) 5 mg tablet Start: 05-11-2023 [...] Start: 07-19-2022 take 1 capsule by mo [facility] once daily VITAMINS B COMPLEX capsule Take 1 capsule by mouth once daily. 0 07/19/2022 Active Comment on above: Take 1 capsule by mo [facility] once daily. zonisamide 100 mg oral capsule (1 source) Anti-epileptic Agent Start: 07-27-2023 End: 11-15-2023 take 2 capsules by mouth once daily at bedtime zonisamide (ZONEGRAN) 100 mg capsule take 2 capsules by mouth every day at bedtime 0 07/27/2023 11/15/2023 Discontinued Problems Active Problems Problem Classification Problem Date Documented Da te Episodic/Chronic Abdominal pain (2 sources) Abdominal pain; Translations: [Unspecified abdominal pain] 02-11-2025 Episodic Acquired foot deformities (10 sources) Disorder of ankle; Translations: [Valgus deformity, not elsewhere classified, right ankle] Episodic Diabetes mellitus without complication (14 sources) Impaired fasting glycemia; Translations: [Impaired fasting [...] Onset: 4 Episodic Other connective tissue disease (2 sources) Triggering of digit; Translations: [Trigger finger, unspecified [...] Onset: 4 02-08-2024 Chronic Other liver diseases (12 sources) Inflammatory disease of liver; Translations: [Inflammatory liver disease, unspecified] Onset: 4 02-08-2024 Chronic Other liver diseases (1 source) Fatty (change of) liver, not elsewhere classified; Translations: [Metabolic dysfunction-associated steatotic liver disease (MASLD)] 02-08-2024 Chronic Other liver diseases (3 sources) Enzyme level - finding; Translations: [Transaminasemia] [...] conditions (not mental disorders or infectious disease) (9 sources) Encounter for screening mammogram for malignant [...] Basophils (Bld) [#/Vol] 0.0 10 3/uL 0.0-0.1 [facility] Basophils/100 WBC Auto (Bld) on 04-11-2024 Basophils/100 WBC (Bld) 0.6 % 0.2-2.0 [facility] Diagnostic impression [Inter pretation] in Specimen Narrativeon 04-11-2024 Diagnostic impression Molgen Buck (Unsp spec) [Interp] Comment . [facility] Comment on above: Not infected with HC V unless early or acute infection issuspected (which may be delayed in an immunocompromisedindividual), or other evidence exists to indicate HCVinfection.Performed at: [facility] [address] [id number] Director: Kiet Godwin PhD, Phone: [phone] Eosinophils/100 WBC Auto (Bl d)on 04-11-2024 Eosinophils/100 WBC (Bld) 2.2 % 0.9-7.0 [facility] Erythrocyte distribution wid th Auto (RBC) [Ratio]on 04-11-2024 Erythrocyte distribution width (RBC) [Ratio] 12.9 % 11.0-15.0 [facility] Globulin Calc (S) [Mass/Vol] on 04-11-2024 Globulin (S) [Mass/Vol] 3.5 g/dL [facility] Hematocrit Auto (Bld) [Volum e fraction]on 04-11-2024 Hematocrit (Bld) [Volume fraction] 38.3 % 36.0-48.0 [facility] Hemoglobin [Mass/volume] in Bloodon 04-11-2024 Hemoglobin (Bld) [Mass/Vol] 13.0 g/dL 12.0-16.0 [facility] Hepatitis A virus Ab [Presen ce] in Serum by Immunoassayon 04-11-2024 HAV Ab IA Ql (S) Negative Negative [facility] Comment on above: Comment: The HAV tot [...] HAVtotal antibody results to IgM (e.g., panel #[id number] HAVAntibody w/ Rfx).Performed at: [facility] [address] [id number] Director: Kiet Godwin PhD, Phone: [phone] Laboratory - Chemistry and C hemistry - challengeon 04-11-2024 Albumin [Mass/Vol] 3.5 g/dL 3.4-5.0 [facility] ALP [Catalytic activity/Vol] 106 U/L 46-116 [facility] ALT [Catalytic activity/Vol] 49 U/L 14-59 [facility] AST [Catalytic activity/Vol] 36 U/L 15-37 [facility] Bilirubin [Mass/Vol] 0.5 mg/dL 0.2-1.0 [facility] Bilirubin.direct [Mass/Vol] 0.1 mg/dL 0.0-0.2 [facility] Ferritin [Mass/Vol] 308.0 ng/mL High 8.0-252.0 [facility] Protein [Mass/Vol] 7.0 g/dL 6.4-8.2 [facility] Laboratory - Hematology and Cell countson 04-11-2024 Immature granulocytes/100 WBC (Bld) 0.4 % 0.0-0.5 [facility] Leukocytes [#/volume] correc larry for nucleated erythrocytes in Blood by Automated counon 04-11-2024 WBC corrected for nucl RBC Auto (Bld) [#/Vol] 4.9 10 3/uL 4.0-11.0 [facility] Lymphocytes Auto (Bld) [#/Vo l]on 04-11-2024 Lymphocytes (Bld) [#/Vol] 1.8 10 3/uL 1.2-3.8 [facility] Lymphocytes/100 WBC Auto (Bl d)on 04-11-2024 Lymphocytes/100 WBC (Bld) 36.9 % 20.5-60.0 [facility] MCH Auto (RBC) [Entitic mass ]on 04-11-2024 MCH (RBC) [Entitic mass] 31.2 pg 26.7-34.0 [facility] MCHC Auto (RBC) [Mass/Vol]on 04-11-2024 MCHC (RBC) [Mass/Vol] 33.9 g/dL 29.9-35.2 [facility] MCV Auto (RBC) [Entitic vol] on 04-11-2024 MCV (RBC) [Entitic vol] 91.8 fL 81.0-99.0 [facility] Monocytes Auto (Bld) [#/Vol] on 04-11-2024 Monocytes (Bld) [#/Vol] 0.4 10 3/uL 0.3-0.8 [facility] Monocytes/100 WBC Auto (Bld) on 04-11-2024 Monocytes/100 WBC (Bld) 9.0 % 1.7-12.0 [facility] Neutrophils Auto (Bld) [#/Vo l]on 04-11-2024 Neutrophils (Bld) [#/Vol] 2.5 10 3/uL 1.4-6.5 [facility] Neutrophils/100 WBC Auto (Bl d)on 04-11-2024 Neutrophils/100 WBC (Bld) 50.9 % 43.0-75.0 [facility] No Panel Informationon 04-11 Eosinophils # (Auto) 0.1 10 3/uL 0.0-0.7 [facility] Hepatitis B Core Total Antibody Negative Negative [facility] Immature Granulocyte # (Auto) 0.02 10 3/uL 0.00-0.03 [facility] Platelet mean volume Auto (B ld) [Entitic vol]on 04-11-2024 Platelet mean volume (Bld) [Entitic vol] 9.6 fL 9.5-13.5 [facility] Platelets Auto (Bld) [#/Vol] on 04-11-2024 Platelets (Bld) [#/Vol] 169 10 3/uL 150-450 [facility] RBC Auto (Bld) [#/Vol]on RBC (Bld) [#/Vol] 4.17 10 6/uL Low 4.20-5.40 [facility] Serum or plasma albumin/glob ulin mass ratioon 04-11-2024 Albumin/Globulin [Mass ratio] 1.0 {ratio} [facility] Serum or plasma free cefurox flora measurement (mass/volume)on 04-11-2024 Cefuroxime free [Mass/Vol] Negative Negative [facility] Comment on above: Performed at: [facility] [id number] [place], [place] [id number] Director: Kiet Godwin PhD, Phone: [phone] Serum or plasma hepatitis C virus antibody signal/cutoff ratio by immunoassay (relation 04-11-2024 HCV Ab Signal/Cutoff IA [Rel units/Vol] Non-Reactive Non Reactive [facility] CNPNon 01-23-2024 CNPN Telephone (NEADFV) CHRISTIAN NOYOLA ([id number]) 1950 F Date Time Provider Department 01/23/24 JORGE DESAI NEADFV During your visit today, we recorded the following information about you: Emily Ellis 01/23/2024 1:47 PM Signed [facility] Progress Note scanned to [employer] for review and signature Debbi Brizuela RN 01/23/2024 2:26 PM Signed Printed for review and signature. Debbi Brizuela RN 01/24/2024 2:04 PM Signed Signed form faxed to number requested. Faxed verification received. 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 Rn Utilization Management Um: PSCB Transcribe Date/Time: Jan 15 2024 12:39P Dictated by : MAYITO RAMIREZ MD This examination was interpreted and the report reviewed and electronically signed by: MAYITO RAMIREZ MD on Jan 15 2024 12:42PM EST [id number] Normal [facility] XR Lumbar spine AP and Later [place] 01-15-2024 IMPRESSION: Postoperative and degenerative changes, similar to prior. Rn Utilization Management Um: PSCB Transcribe Date/Time: Jan 15 2024 12:39P Dictated by : MAYITO RAMIREZ MD This examination was interpreted and the report reviewed and electronically signed by: MAYITO RAMIREZ MD on Jan 15 2024 12:42PM [facility] DIVISION OF RADIOLOGY * * *Final Report* [...] left upper quadrant. DIVISION OF RADIOLOGY Provider, [facility] - 01/15/2024 * * *Final Report* [...] Postoperative and degenerative changes, similar to prior. Rn Utilization Management Um: PSCB Transcribe Date/Time: Jan 15 2024 12:39P Dictated by : MAYITO RAMIREZ MD This examination was interpreted and the report reviewed and electronically signed by: MAYITO RAMIREZ MD on Jan 15 2024 12:42PM EST [facility] Radiology Study observation (narrative) [facility] XR Lumbar spine AP and Later alOrdered By: Ccf Provider on 01-15-2024 [facility] CNPNon 01-03-2024 CNPN Telephone (NEADFV) CHRISTIAN NOYOLA ([id number]) 1950 F Date Time Provider Department 01/03/24 JORGE DESAI NEKWESIFV During your visit today, we recorded the following information about you: Emily Ellis 01/03/2024 1:56 PM [facility] to [facility] Debbi Brizuela RN 01/03/2024 4:19 PM Signed Printed for review and signature. Debbi Brizuela RN 01/05/2024 9:21 AM Signed Signed form faxed to number requested. Faxed verification received. 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 [8413] Prescriptions as of 01/05/2024 - gabapentin (NEURONTIN) [...] Encounter Status:Closed by DEBBI BRIZUELA on 01/05/24 [facility]NSFRVW ) CHRISTIAN NOYOLA ([id number]) 1950 F Date Time Provider Department 12/28/23 1:00 PM LITZY TODD NSFRVW During your visit today, we recorded the following information about you: Pulse Blood pressure Weight Height 78/minute 137/64 87.3 kg 1.626 m Litzy Todd, VALUE ANALYST.[facility] 12/28/2023 11:49 PM Signed SPINE SURGERY FOLLOW [...] which included preparing to see the patient, amyx-rl-mcog patient care, completing clinical documentation, obtaining and/or reviewing separately obtained history, performing a medically appropriate examination, counseling and educating the patient/family/caregiv er, and ordering medications, tests, or procedures. SIGNATURE: Litzy Todd APRN.[facility] PATIENT NAME: Christian Noyola DATE: December 28, 2023 TIME: 12:52 PM PAGER: Allergies As of Date: 12/28/2023 (No Known Allergies) Date Reviewed: 12/28/2023 Reviewed by: Gregorio Ellis PCNA - Fully Assessed Reason for Visit: Post Op [174] Primary Visit Diagnosis:S/P lumbar fusion [Z98.1] Order(s):CONSULT TO PHYSICAL THERAPY [9032] Order #: [id number]: 1 FUTURE XR LUMBAR LIMITED 2V AP/LAT [0030200] Order #: [id number] FUTURE Prescriptions as of 12/28/2023 - gabapentin (NEURONTIN) 300 mg capsule Take 1 capsule by mouth two times a day for 90 days. - amLODIPine (NORVASC) 5 mg tablet TAKE 1 TABLET BY MOUTH ONCE EVERYDAY - olmesartan (more content not included)... [facility] 12-18-2023 [facility] Telephone (NEADFV) CHRISTIAN NOYOLA ([id number]) 1950 F Date Time Provider Department 12/18/23 JORGE DESAI During your visit today, we recorded the following information about you: Meghan Emily 12/18/2023 9:29 AM Signed Pt phoned reporting fever with chills on Saturday 12/16 post op. Surgery was Thursday 12/14. Please call and advise Pt phone # [phone] Vinod Morton RN 12/18/2023 11:11 AM Signed [...] Date Reviewed: 12/16/2023 Reviewed by: Sylvia Gordon APRN.[employer]ER [employer] INSPECTOR - Fully Assessed Reason for Visit: Fever [...] Status:Closed by VINOD MORTON on 12/18/23 Normal [facility] Basic metabolic 2000 panelon 12-16-2023 Anion gap [Moles/Vol] 12 mmol/L Normal 8-15 [facility] Comment on above: Order Comment: Speci men Type: BLOOD SPECIMENOrdering Facility: [facility] Address: [address] [place] [address] Performed By: #### 2 4321-2 ####[facility]ATORYCL[facility] [id number] [address] [place], [place] [address] [place] Calcium [Mass/Vol] 9.0 mg/dL Normal 8.5-10.2 [facility] Comment on above: Order Comment: Speci men Type: BLOOD SPECIMENOrdering Facility: [facility] Address: [address] [place] [address] Performed By: #### 2 4321-2 ####[facility]ATORYCLIA [id number] [place] [id number] [place] Chloride [Moles/Vol] 105 mmol/L Normal 98-107 [facility] Comment on above: Order Comment: Speci men Type: BLOOD SPECIMENOrdering Facility: [facility] Address: [address] [place] [address] Performed By: #### 2 4321-2 ####[facility]ATORYCLIA [id number] [place] [id number] [place] CO2 [Moles/Vol] 24 mmol/L Normal 22-30 [facility] Comment on above: Order Comment: Speci men Type: BLOOD SPECIMENOrdering Facility: [facility] Address: [address] [place] [address] Performed By: #### 2 4321-2 ####[facility]ORYCLIA [id number] [place] [id number] [place] Creatinine [Mass/Vol] 0.98 mg/dL High 0.58-0.96 [facility] Comment on above: Order Comment: Speci men Type: BLOOD SPECIMENOrdering Facility: [facility] Address: [address] [place] [address] Performed By: #### 2 4321-2 ####[facility]ORYCL[facility] [id number] [place] [id number] [place] Creatinine and Glomerular filtration rate.predicted panel (S/P/Bld) 61 mL/min/1.73m??? Normal >=60 [facility] Comment on above: Order Comment: Javier salamanca Type: BLOOD SPECIMENOrdering Facility: [facility] Address: [address] [place] [address] Result Comment: Annalise mated Glomerular Filtration Rate [...] actual GFR. Performed By: #### 2 4321-2 ####ALEVISM LABORATORYIA [id number] [place] [id number] [place] Glucose [Mass/Vol] 101 mg/dL High 74-99 [facility] Comment on above: Order Comment: Javier salamanca Type: BLOOD SPECIMENOrdering Facility: [facility] Address: [address] [place] [address] Result Comment: The [place] Diabetes Association (ADA) provides guidance for cutoff [...] Standards of Medical Care in Diabetes 2016, [place] [employer] Association. Diabetes Care. 2016.39(Suppl 1). Performed By: #### 2 4321-2 ####[facility] LABORATORYCLIA [id number] [place] [address] [place] Potassium [Moles/Vol] 4.3 mmol/L Normal 3.7-5.1 [facility] Comment on above: Order Comment: Speci men Type: BLOOD SPECIMENOrdering Facility: [facility] Address: [address] [place] [address] Performed By: #### 2 4321-2 ####[facility]ORYCLIA [id number] [place] [id number] [place] Sodium [Moles/Vol] 141 mmol/L Normal 136-144 [facility] Comment on above: Order Comment: Speci men Type: BLOOD SPECIMENOrdering Facility: [facility] Address: [address] [place] [address] Performed By: #### 2 4321-2 ####[facility] LABORATORYCLIA [id number] [place] [address] [place] Urea nitrogen [Mass/Vol] 14 mg/dL Normal 7-21 [facility] Comment on above: Order Comment: Speci men Type: BLOOD SPECIMENOrdering Facility: [facility] Address: [address] [place] [address] Performed By: #### 2 4321-2 ####[facility] LABORATORYCLIA [id number] [place] [id number] [place] CBC panel Auto (Bld)on 12-15 Erythrocyte distribution width (RBC) [Ratio] 12.3 % Normal 11.5-15.0 [facility] Comment on above: Order Comment: Speci men Type: BLOOD SPECIMEN [facility]: [facility] Address: [address] [place] [address] Performed By: #### 5 8410-2 #### [facility] CLIA [id number] [address] [place] [address] [place] Hematocrit (Bld) [Volume fraction] 37.6 % Normal 36.0-46.0 [facility] Comment on above: Order Comment: Speci men Type: BLOOD SPECIMEN [facility]ing [facility]: [facility] Address: [address] [place] [address] Performed By: #### 5 8410-2 #### [facility] CLIA [id number] [address] [place] [address] [place] Hemoglobin (Bld) [Mass/Vol] 12.7 g/dL Normal 11.5-15.5 [facility] Comment on above: Order Comment: Speci men Type: BLOOD SPECIMEN [facility]ing Facility: [facility] Address: [address] [place] [address] Performed By: #### 5 8410-2 #### [facility] [place] [id number] [address] [place] [address] [place] MCH (RBC) [Entitic mass] 31.0 pg Normal 26.0-34.0 [facility] Comment on above: Order Comment: Speci men Type: BLOOD SPECIMEN [facility] Address: [address] [place] [address] Performed By: #### 5 8410-2 #### [facility] [place] [id number] [address] [place] [address] [place] MCHC (RBC) [Mass/Vol] 33.8 g/dL Normal 30.5-36.0 [facility] Comment on above: Order Comment: Speci men Type: BLOOD SPECIMEN [facility] Address: [address] [place] [address] Performed By: #### 5 8410-2 #### [facility] [place] [id number] [address] [place] [address] [place] MCV (RBC) [Entitic vol] 91.7 fL Normal 80.0-100.0 [facility] Comment on above: Order Comment: Speci men Type: BLOOD SPECIMEN Ordering Facility: [facility] Address: [address] [place] [address] Performed By: #### 5 8410-2 #### [facility] [place] [id number] [address] [place] [address] [place] Nucleated RBC (Bld) [#/Vol] 10*3/uL Normal <0.01 [facility] Comment on above: Order Comment: Speci men Type: BLOOD SPECIMEN Ordering Facility: [facility] Address: [address] [place] [address] Performed By: #### 5 8410-2 #### [facility] CLIA [id number] [address] [place] [address] [place] Platelet mean volume (Bld) [Entitic vol] 10.0 fL Normal 9.0-12.7 [facility] Comment on above: Order Comment: Speci men Type: BLOOD SPECIMEN Ordering Facility: [facility] Address: [address] [place] [address] Performed By: #### 5 8410-2 #### [facility] CLIA [id number] [address] [place] [address] [place] Platelets (Bld) [#/Vol] 155 10*3/uL Normal 150-400 [facility] Comment on above: Order Comment: Speci men Type: BLOOD SPECIMEN Ordering Facility: [facility] Address: [address] [place] [address] Performed By: #### 5 8410-2 #### [facility] [place] [id number] [address] [place] [address] [place] RBC (Bld) [#/Vol] 4.10 10*6/uL Normal 3.90-5.20 [facility] Comment on above: Order Comment: Speci men Type: BLOOD SPECIMEN Ordering Facility: [facility] Address: [address] [place] [address] Performed By: #### 5 8410-2 #### [facility] CLIA [id number] [address] [place], [place] [address] [place] WBC (Bld) [#/Vol] 6.70 10*3/uL Normal 3.70-11.00 [facility] Comment on above: Order Comment: Speci men Type: BLOOD SPECIMEN Ordering Facility: [facility] Address: [address] [place] [address] Performed By: #### 5 8410-2 #### [facility] CLIA [id number] [address] [place] [address] [place] CNDSon 12-16-2023 CNDS HNO ID: [id number] Author: SYLVIA GORDON APRN.[employer] INSPECTOR Service: Neurosurgery Author Type: Nurse Practitioner Type: [...] the lives of those receiving it in [place] use. Some people receiv (more content not included)... [facility] THERAPY [facility] 12-16-2023 THERAPY NT HNO ID: [id number] Author: NICHOLAS CLARKE, PT Service: Physical Therapy Author Type: Physical Therapist Type: Therapy (PT/OT/Speech/Resp) Filed: 12/16/2023 10:04 Note Text: Physical Therapy Evaluation Summary SERVICE DATE: 12/16/2023 SERVICE TIME: 0937 to 0953 ROOM: [place] [address] PT 6 Clicks Score: 22 Discharge Readiness: [...] Walker- Standard, Elevated Toilet Seat, Lift Chair, Equipment Maint Tech PRIOR FUNCTIONAL LEVEL Within Functional Limits IND w/ ADL's and IADL's +drives. Ambulated w/o AD + no falls SUBJECTIVE Pt is pleasant and agreeable to PT THERAPY DIAGNOSIS Reduced mobility-other, Decreased activities of daily living (ADL), Muscle Weakness (generalized), Difficulty walking-musculoskeleta l TREATMENT INTERVENTIONS Evaluation, Gait Training (50194) Timed Code Treatment (minutes): 6 Skilled Treatment [...] DATE: December 16, 2023 TIME: 10:03 AM [facility] THERAPY NT HNO ID: [id number] Author: MAGALI TOSCANO OT/L Service: ? Author Type: Occupational Therapist Type: Therapy (PT/OT/Speech/Resp) Filed: 12/16/2023 09:26 Note Text: Occupational Therapy Treatment Summary SERVICE DATE: 12/16/2023 SERVICE TIME: 0854 to 0920 ROOM: [place] [address] OT 6 Clicks Score: 24 DISCHARGE RECOMMENDATIONS [...] Walker- Standard, Elevated Toilet Seat, Lift Chair, Equipment Maint Tech (lift bed) PRIOR FUNCTIONAL LEVEL Within Functional Limits IND w/ ADL's and IADL's +drives. Ambulated w/o AD + no falls SUBJECTIVE pt agreeable to therapy and would like to go home today COGNITION THERAPY DIAGNOSIS Reduced mobility-other, Decreased activities of daily living (ADL) TREATMENT INTERVENTIONS Evaluation, Self Residential Management ([id number]) Timed Code Treatment (minutes): 11 Skilled Treatment Time (minutes): 26 TRAINING AND EDUCATION PROVIDED Activity Adaptation/Membership Director y Strategies, Adaptive Equipment/DME, Assistive Device Use, [...] DATE: December 16, 2023 TIME: 9:25 AM [facility] XR LUMBAR 2V AP/LATon 2023 XR [...] Variants: None. IMPRESSION: Postoperative and degenerative findings. Rn Utilization Management Um: PSCB Transcribe Date/Time: Dec 16 2023 11:54A Dictated by : MARISSA GAMEZ MD This examination was interpreted and the report reviewed and electronically signed by: MARISSA GAMEZ MD on Dec 16 2023 11:56AM EST [id number] [facility] ANES POSTPROC EVALon 024 ANES POSTPROC EVAL HNO ID: [id number] Author: SASHA SONG MD Service: Anesthesiology Author Type: Anesthesiologist Type: Anesthesia Postprocedure Evaluation Filed: 12/15/2023 17:42 Note Text: POST ANESTHESIA EVALUATION NOTE : 1950 Procedure Summary Date: 12/15/23 Room / Location: OR / [facility] OR Anesthesia Start: 1118 Anesthesia Stop: 1354 [...] December 15, 2023 TIME: 5:42 PM CSN: [id number] [facility] ANES PRE-OPon 12-15-2023 ANES PRE-OP HNO ID: [id number] Author: LU SCOTT MD Service: Anesthesiology Author [...] ?F) 12/15/23 0752 SpO2 99 % 12/15/23 0752 Facility-Administered Medications as of 12/15/2023 Medication Dose [...] December 15, 2023 TIME: 11:16 AM CSN: [id number] [facility] BRIEF OP NOTon 12-15-2023 BRIEF OP NOT HNO ID: [id number] Author: JORGE DESAI MD Service: Neurosurgery Author Type: Physician Type: Brief Op Note Filed: 12/15/2023 18:21 Note Text: BRIEF OPERATIVE / PROCEDURE NOTE LOG ID: [id number] SURGERY/PROCEDURE DATE: 12/15/2023 INCISION/PROCEDURE START TIME: 12:10 PM INCISION CLOSE/PROCEDURE END TIME: 1:35 PM SURGEON(S)/PROCEDURALI ST(S) AND CARBIDE GRINDER(S): Surgeon(s) and Role: * Jorge Desai MD - Primary Physician Cement Side Laster: An Bautista PA-C SURGERY/PROCEDURE(S): L3/4 LLIF ANESTHESIA: General FINDINGS: Appropriate decompression and hardware placement ESTIMATED BLOOD LOSS: 25 mls SPECIMENS: None COMPLICATIONS: None CLOSURE TECHNIQUE: Primary PRE-OP/PRE-PROCEDURE DIAGNOSIS: 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 [facility] OPERATIVE NOon 12-15-2023 OPERATIVE NO HNO ID: [id number] Author: JORGE DESAI MD Service: Neurosurgery Author Type: Physician Type: Operative Report Filed: 12/15/2023 18:44 Note Text: OPERATIVE/PROCEDURE REPORT LOG ID: [id number] SURGERY/PROCEDURE DATE: 12/15/2023 INCISION/PROCEDURE START TIME: 12:10 PM INCISION CLOSE/PROCEDURE END TIME: 1:35 PM SURGEON(S)/PROCEDURALI ST(S) AND CARBIDE GRINDER(S): Surgeon(s) and Role: * Jorge Desai MD - Primary Physician Cement Side Laster: An Bautista PA-C SURGERY/PROCEDURE(S): L3/4 LLIF ANESTHESIA: [...] Implant Name Type Inv. Item Serial No. Kitchenwhere Maker Lot No. LRB No. Used Action SUBSTITUTE MASTERGRAFT CALCIUM PHOSPHATE COLLAGEN BONE GRAFT VOID FILLER - [id number] Cement / Putty SUBSTITUTE MASTERGRAFT CALCIUM PHOSPHATE COLLAGEN BONE GRAFT VOID FILLER [employer] DANEK [id number] N/A 1 Implanted GRAFT INFUSE 14MM SMALL BOVINE COLLAGEN RHBMP-2 23MM BONE ABSORBABLE SPONGE - [id number] Bone GRAFT INFUSE 14MM SMALL BOVINE COLLAGEN RHBMP-2 23MM BONE ABSORBABLE SPONGE [employer] DANEK [id number] N/A 1 Implanted K[facility]IFE [facility] SPINE Accessories [employer] [id number] N/A 1 Non-Implant FELICIA SPACER 8-15MM 20MM [...] DATE: December 15, 2023 TIME: 6:21 PM [facility] XR LUMBAR 2V AP/LATon 2023 XR [...] Intraoperative examination for surgical planning and documentation. Rn Utilization Management Um: LARA Transcribe Date/Time: Dec 15 2023 2:50P Dictated by : JEANNE MOELLER DO This examination was interpreted and the report reviewed and electronically signed by: JEANNE MOELLER DO on Dec 15 2023 2:51PM EST [id number] [facility] XR VERIFY LEVEL D-BOYWK-LSho 12-15-2023 XR VERIFY LEVEL L-SPINE-NB * * [...] phone and video during the surgical procedure. Rn Utilization Management Um: PSCB Transcribe Date/Time: Dec 15 2023 12:35P Dictated by : JEANNE MOELLER DO This examination was interpreted and the report reviewed and electronically signed by: JEANNE MOELLER DO on Dec 15 2023 12:39PM EST [id number] Normal [facility] Bacteria Ur Culton Bacteria identified Cx Nom (U) CULTURE, URINE: No growth (<1,000 CFU/ml) Normal [facility] Comment on above: Performed By: #### 6 30-4 ####[facility]IA [id number] [place] [address] [place] CBC W Auto Differential pane l (Bld)on 11-15-2023 Basophils (Bld) [#/Vol] 0.03 10*3/uL [facility] Basophils/100 WBC (Bld) 0.6 % [facility] Differential cell count method Nom (Bld) Auto [facility] Eosinophils (Bld) [#/Vol] 0.10 10*3/uL [facility] Eosinophils/100 WBC (Bld) 2.0 % [facility] Erythrocyte distribution width (RBC) [Ratio] 12.2 % 11.5 - 15.0 % [facility] Hematocrit (Bld) [Volume fraction] 43.3 % 36.0 - 46.0 % [facility] Hemoglobin (Bld) [Mass/Vol] 14.0 g/dL 11.5 - 15.5 g/dL [facility] Immature granulocytes (Bld) [#/Vol] NINF [facility] Immature granulocytes/100 WBC (Bld) 0.2 % [facility] Lymphocytes (Bld) [#/Vol] 1.59 10*3/uL [facility] Lymphocytes/100 WBC (Bld) 32.6 % [facility] MCH (RBC) [Entitic mass] 30.3 pg 26.0 - 34.[address] [facility] MCHC (RBC) [Mass/Vol] 32.3 g/dL 30.5 - 36.0 g/dL [facility] MCV (RBC) [Entitic vol] 93.7 fL 80.0 - 100.[address] [facility] Monocytes (Bld) [#/Vol] 0.49 10*3/uL NINF [facility] Monocytes/100 WBC (Bld) 10.0 % [facility] Neutrophils (Bld) [#/Vol] 2.66 10*3/uL [facility] Neutrophils/100 WBC (Bld) 54.6 % [facility] Nucleated RBC (Bld) [#/Vol] NINF [facility] Nucleated RBC/100 WBC (Bld) [Ratio] 0.0 % /[address] [facility] Platelet mean volume (Bld) [Entitic vol] 10.2 fL 9.0 - 12.[address] [facility] Platelets (Bld) [#/Vol] 211 10*3/uL [facility] RBC (Bld) [#/Vol] 4.62 10*6/uL 3.90 - 5.2 0 m/uL [facility] WBC (Bld) [#/Vol] 4.88 10*3/uL [facility] Basophils (Bld) [#/Vol] 0.03 10*3/uL Normal <0.11 [facility] Comment on above: Order Comment: Speci men Type: BLOOD SPECIMENOrdering Facility: [facility] Address: [address] [place] [address] Performed By: #### 5 7021-8 ####[facility] LABIA [id number] [place] [address] [place] Basophils/100 WBC (Bld) 0.6 % Normal [facility] Comment on above: Order Comment: Speci men Type: BLOOD SPECIMENOrdering Facility: [facility] Address: [address] [place] [address] Performed By: #### 5 7021-8 ####[facility] LABCLIA [id number] [place] [address] [place] Differential cell count method Nom (Bld) Auto Normal [facility] Comment on above: Order Comment: Speci men Type: BLOOD SPECIMENOrdering Facility: [facility] Address: [address] [place] [address] Performed By: #### 5 7021-8 ####[facility] LABCLIA [id number] [place] [address] [place] Eosinophils (Bld) [#/Vol] 0.10 10*3/uL Normal <0.46 [facility] Comment on above: Order Comment: Speci men Type: BLOOD SPECIMENOrdering Facility: [facility] Address: [address] [place] [address] Performed By: #### 5 7021-8 ####[facility] LABCLIA [id number] [place] [address] [place] Eosinophils/100 WBC (Bld) 2.0 % Normal [facility] Comment on above: Order Comment: Speci men Type: BLOOD SPECIMENOrdering Facility: [facility] Address: [address] [place] [address] Performed By: #### 5 7021-8 ####[facility] LABIA [id number] [place] [address] [place] Erythrocyte distribution width (RBC) [Ratio] 12.2 % Normal 11.5-15.0 [facility] Comment on above: Order Comment: Speci men Type: BLOOD SPECIMENOrdering Facility: [facility] Address: [address] [place] [address] Performed By: #### 5 7021-8 ####[facility] LABCLIA [id number] [place] [address] [place] Hematocrit (Bld) [Volume fraction] 43.3 % Normal 36.0-46.0 [facility] Comment on above: Order Comment: Speci men Type: BLOOD SPECIMENOrdering Facility: [facility] Address: [address] [place] [address] Performed By: #### 5 7021-8 ####[facility] LABCLIA [id number] [place] [address] [place] Hemoglobin (Bld) [Mass/Vol] 14.0 g/dL Normal 11.5-15.5 [facility] Comment on above: Order Comment: Speci men Type: BLOOD SPECIMENOrdering Facility: [facility] Address: [address] [place] [address] Performed By: #### 5 7021-8 ####[facility] LABCLIA [id number] [place] [address] [place] Immature granulocytes (Bld) [#/Vol] 10*3/uL Normal <0.10 [facility] Comment on above: Order Comment: Speci men Type: BLOOD SPECIMENOrdering Facility: [facility] Address: [address] [place] [address] Performed By: #### 5 7021-8 ####[facility] LABCLIA [id number] [place] [address] [place] Immature granulocytes/100 WBC (Bld) 0.2 % Normal [facility] Comment on above: Order Comment: Speci men Type: BLOOD SPECIMENOrdering Facility: [facility] Address: [address] [place] [address] Performed By: #### 5 7021-8 ####[facility] LABCLIA [id number] [place] [address] [place] Lymphocytes (Bld) [#/Vol] 1.59 10*3/uL Normal 1.00-4.00 [facility] Comment on above: Order Comment: Speci men Type: BLOOD SPECIMENOrdering Facility: [facility] Address: [address] [place] [address] Performed By: #### 5 7021-8 ####[facility] LABCLIA [id number] [place] [address] [place] Lymphocytes/100 WBC (Bld) 32.6 % Normal [facility] Comment on above: Order Comment: Speci men Type: BLOOD SPECIMENOrdering Facility: [facility] Address: [address] [place] [address] Performed By: #### 5 7021-8 ####[facility] LABIA [id number] [place] [address] [place] MCH (RBC) [Entitic mass] 30.3 pg Normal 26.0-34.0 [facility] Comment on above: Order Comment: Speci men Type: BLOOD SPECIMENOrdering Facility: [facility] Address: [address] [place] [address] Performed By: #### 5 7021-8 ####[facility] [id number] [place] [address] [place] MCHC (RBC) [Mass/Vol] 32.3 g/dL Normal 30.5-36.0 [facility] Comment on above: Order Comment: Speci men Type: BLOOD SPECIMENOrdering Facility: [facility] Address: [address] [place] [address] Performed By: #### 5 7021-8 ####[facility] [id number] [place] [address] [place] MCV (RBC) [Entitic vol] 93.7 fL Normal 80.0-100.0 [facility] Comment on above: Order Comment: Speci men Type: BLOOD SPECIMENOrdering Facility: [facility] Address: [address] [place] [address] Performed By: #### 5 7021-8 ####[facility] [id number] [place] [address] [place] Monocytes (Bld) [#/Vol] 0.49 10*3/uL Normal <0.87 [facility] Comment on above: Order Comment: Speci men Type: BLOOD SPECIMENOrdering Facility: [facility] Address: [address] [place] [address] Performed By: #### 5 7021-8 ####[facility] [id number] [place] [address] [place] Monocytes/100 WBC (Bld) 10.0 % Normal [facility] Comment on above: Order Comment: Speci men Type: BLOOD SPECIMENOrdering Facility: [facility] Address: [address] [place] [address] Performed By: #### 5 7021-8 ####[facility] LABCLIA [id number] [place] [address] [place] Neutrophils (Bld) [#/Vol] 2.66 10*3/uL Normal 1.45-7.50 [facility] Comment on above: Order Comment: Speci men Type: BLOOD SPECIMENOrdering Facility: [facility] Address: [address] [place] [address] Performed By: #### 5 7021-8 ####[facility] LABCLIA [id number] [place] [address] [place] Neutrophils/100 WBC (Bld) 54.6 % Normal [facility] Comment on above: Order Comment: Speci men Type: BLOOD SPECIMENOrdering Facility: [facility] Address: [address] [place] [address] Performed By: #### 5 7021-8 ####[facility] LABCLIA [id number] [place] [address] [place] Nucleated RBC (Bld) [#/Vol] 10*3/uL Normal <0.01 [facility] Comment on above: Order Comment: Speci men Type: BLOOD SPECIMENOrdering Facility: [facility] Address: [address] [place] [address] Performed By: #### 5 7021-8 ####[facility] LABCLIA [id number] [place] [address] [place] Nucleated RBC/100 WBC (Bld) [Ratio] 0.0 /100 WBC Normal [facility] Comment on above: Order Comment: Speci men Type: BLOOD SPECIMENOrdering Facility: [facility] Address: [address] [place] [address] Performed By: #### 5 7021-8 ####[facility] LABCLIA [id number] [address] [address] [place] Platelet mean volume (Bld) [Entitic vol] 10.2 fL Normal 9.0-12.7 [facility] Comment on above: Order Comment: Speci men Type: BLOOD SPECIMENOrdering Facility: [facility] Address: [address] [place] [address] Performed By: #### 5 7021-8 ####[facility] LABCLIA [id number] [place] [address] [place] Platelets (Bld) [#/Vol] 211 10*3/uL Normal 150-400 [facility] Comment on above: Order Comment: Speci men Type: BLOOD SPECIMENOrdering Facility: [facility] Address: [address] [place] [address] Performed By: #### 5 7021-8 ####[facility] LABIA [id number] [place] [address] [place] RBC (Bld) [#/Vol] 4.62 10*6/uL Normal 3.90-5.20 [facility] Comment on above: Order Comment: Speci men Type: BLOOD SPECIMENOrdering Facility: [facility] Address: [address] [place] [address] Performed By: #### 5 7021-8 ####[facility] LABCLIA [id number] [place] [id number] [place] WBC (Bld) [#/Vol] 4.88 10*3/uL Normal 3.70-11.00 [facility] Comment on above: Order Comment: Speci men Type: BLOOD SPECIMENOrdering Facility: [facility] Address: [address] [place] [address] Performed By: #### 5 7021-8 ####[facility] LABCLIA [id number] [place] [address] [place] CONFIRM BLOOD TYPEon 024 ABO O Normal [facility] Comment on above: Order Comment: Speci men Type: BLOOD SPECIMEN [facility]ing Facility: [facility] Address: [address] [place] [address] Performed By: #### C ONABO #### [facility] CLIA [id number] [address] [place] [address] [place] Rh Nom (Bld) Positive Normal [facility] Comment on above: Order Comment: Speci men Type: BLOOD SPECIMEN [facility]ing Facility: [facility] Address: [address] [place] [address] Performed By: #### C ONO #### [facility] CLIA [id number] [address] [place] [address] [place] Comprehensive metabolic 2000 panelon 11-15-2023 Albumin [Mass/Vol] 4.3 g/dL Normal 3.9-4.9 [facility] Comment on above: Order Comment: Speci men Type: BLOOD SPECIMEN [facility]ing Facility: [facility] Address: [address] [place] [address] Performed By: #### 5 0190-8, 6-4, 62244-5 #### [facility] CLIA [id number] [address] [place] [address] [place] ALP [Catalytic activity/Vol] 116 U/L Normal 34-123 [facility] Comment on above: Order Comment: Speci men Type: BLOOD SPECIMEN [facility]ing Facility: [facility] Address: [address] [place] [address] Performed By: #### 5 0190-8, 2275-4, 84396-7 #### [facility] CLIA [id number] [address] [place], [place] [address] [place] ALT [Catalytic activity/Vol] 45 U/L High 7-38 [facility] Comment on above: Order Comment: Speci men Type: BLOOD SPECIMEN [facility]ing Facility: [facility] Address: [address] [place] [address] Performed By: #### 5 0190-8, 2275-4, 93103-4 #### [facility] CLIA [id number] [address] [place] [address] [place] Anion gap [Moles/Vol] 10 mmol/L Normal 9-18 [facility] Comment on above: Order Comment: Speci men Type: BLOOD SPECIMEN [facility]ing Facility: [facility] Address: [address] [place] [address] Performed By: #### 5 0190-8, 2275-4, 55489-3 #### [facility] CLIA [id number] [address] [place] [address] [place] AST [Catalytic activity/Vol] 50 U/L High 13-35 [facility] Comment on above: Order Comment: Speci men Type: BLOOD SPECIMEN [facility]ing Facility: [facility] Address: [address] [place] [address] Performed By: #### 5 0190-8, 4, 53214-2 #### [facility] CLIA [id number] [address] [place] [address] [place] Bilirubin [Mass/Vol] 0.3 mg/dL Normal 0.2-1.3 [facility] Comment on above: Order Comment: Speci men Type: BLOOD SPECIMEN [facility]ing Facility[facility] Address: [address] [place] [address] Performed By: #### 5 0190-8, 4, 39783-9 #### [facility] CLIA [id number] [address] [place] [address] [place] Calcium [Mass/Vol] 9.9 mg/dL Normal 8.5-10.2 [facility] Comment on above: Order Comment: Speci men Type: BLOOD SPECIMEN Ordering Facility: [facility] Address: [address] [place] [address] Performed By: #### 5 0190-8, 6-4, 72503-8 #### [facility] CLIA [id number] [address] [place] [address] [place] Chloride [Moles/Vol] 105 mmol/L Normal 97-105 [facility] Comment on above: Order Comment: Speci men Type: BLOOD SPECIMEN Ordering Facility: [facility] Address: [address] [place] [address] Performed By: #### 5 0190-8, 2275-4, 17674-1 #### [facility] CLIA [id number] [address] [place] [address] [place] CO2 [Moles/Vol] 27 mmol/L Normal 22-30 [facility] Comment on above: Order Comment: Speci men Type: BLOOD SPECIMEN Ordering Facility: [facility] Address: [address] [place] [address] Performed By: #### 5 0190-8, 2275-4, 00119-1 #### [facility] CLIA [id number] [address] [place] [address] [place] Creatinine [Mass/Vol] 1.08 mg/dL High 0.58-0.96 [facility] Comment on above: Order Comment: Speci men Type: BLOOD SPECIMEN Ordering Facility: [facility] Address: [address] [place] [address] Performed By: #### 5 0190-8, 2275-4, 08072-6 #### [facility] CLIA [id number] [address] [place] [address] [place] Creatinine and Glomerular filtration rate.predicted panel (S/P/Bld) 54 mL/min/1.73m??? Low >=60 [facility] Comment on above: Order Comment: Speci men Type: BLOOD SPECIMEN Ordering Facility: [facility] Address: [address] [place] [address] Result Comment: Annalise mated Glomerular Filtration Rate [...] actual GFR. Performed By: #### 5 0190-8, 2275-, 35892-6 #### [facility] CLIA [id number] [address] [place] [address] [place] Glucose [Mass/Vol] 112 mg/dL High 74-99 [facility] Comment on above: Order Comment: Javier salamanca Type: BLOOD SPECIMEN Ordering Facility: [facility] Address: [address] [place] [address] Result Comment: The [place] Diabetes Association (ADA) provides guidance for cutoff [...] Standards of Medical Care in Diabetes 2016, [place] [employer]. Diabetes Care. 2016.39(Suppl 1). Performed By: #### 5 0190-8, 2275-10, #### [facility] CLIA [id number] [address] [place] [address] [place] Potassium [Moles/Vol] 5.1 mmol/L Normal 3.7-5.1 [facility] Comment on above: Order Comment: Javier salamanca Type: BLOOD SPECIMEN Ordering Facility: [facility] Address: [address] [place] [address] Performed By: #### 5 0190-8, 2275-, #### [facility] IA [id number] [address] [place] [address] [place] Protein [Mass/Vol] 7.7 g/dL Normal 6.3-8.0 [facility] Comment on above: Order Comment: Speci men Type: BLOOD SPECIMEN Ordering Facility: [facility] Address: [address] [place] [address] Performed By: #### 5 0190-8, 2276-4, 15771-3 #### [facility] [place] [id number] [address] [place] [address] [place] Sodium [Moles/Vol] 142 mmol/L Normal 136-144 [facility] Comment on above: Order Comment: Speci men Type: BLOOD SPECIMEN Ordering Facility: [facility] Address: [address] [place] [address] Performed By: #### 5 0190-8, 2275-4, 41576-9 #### [facility] [place] [id number] [address] [place] [address] [place] Urea nitrogen [Mass/Vol] 15 mg/dL Normal 7-21 [facility] Comment on above: Order Comment: Speci men Type: BLOOD SPECIMEN Ordering Facility: [facility] Address: [address] [place] [address] Performed By: #### 5 0190-8, 2275-4, 66533-0 #### [facility] [place] [id number] [address] [place] [address] [place] ECG COMPLETEon 11-15-2023 ECG COMPLETE Ventricular Rate : 6 2 BPM Atrial Rate : 62 BPM P-R Interval : 154 ms QRS Duration : 72 ms Q-T Interval : 392 ms QTC Calculation(Bazett) : 397 ms Calculated P Grassflat : 47 degrees Calculated R Grassflat : 24 degrees Calculated T Grassflat : 40 degrees NORMAL SINUS RHYTHM LOW VOLTAGE QRS, CONSIDER PULMONARY DISEASE, PERICARDIAL EFFUSION, OR NORMAL VARIANT BORDERLINE ECG Confirmed by DEBBI MANN MD ([id number]) on 12/01/2023 10:51:09 AM NAME : CHRISTIAN NOYOLA PID : [id number] : 1950 Gender : Female Race : ORD : [id number] Procedure Date : Nov 15 2023 13:16:26 [...] JORGE DESAI Acquired by : vs, Normal [facility] Ferritin SerPl-mCncon 2023 Ferritin [Mass/Vol] 431.0 ng/mL High 14.7-205.1 [facility] Comment on above: Order Comment: Speci men Type: BLOOD SPECIMEN Ordering Facility: [facility] Address: [address] [place] [address] Performed By: #### 5 0190-8, 2276-4, 34243-7 #### [facility] CLIA [id number] [address] [place] [address] [place] HISTORY PHYSICALon HISTORY PHYSICAL HNO ID: [id number] Author: GEORGETTE SANTOS APRN.[employer] INSPECTOR Service: ? Author Type: Nurse Practitioner Type: [...] 35 kg/m2 Non-male patient STOP-Bang Score: 3 [id number] Score: Age: 65-74 Sex: female CHF history: No Hypertension history: Yes Stroke/TIA/thromboembo lism history: No Vascular disease history: No Diabetes history: No [id number] Score: 3 ARISCAT Score: Age: 51-80 Preoperative [...] discontinuing ph (more content not included)... Normal [facility] Iron and Iron binding capaci ty panelon 11-15-2023 Iron [Mass/Vol] 71 ug/dL Normal 41-186 [facility] Comment on above: Order Comment: Speci men Type: BLOOD SPECIMEN Ordering Facility: [facility] Address: [address] [place] [address] [place] [address] Performed By: #### 5 0190-8, 5810-4, 57699-1 #### [facility] CLIA [id number] [address] [place] [address] [place] Iron binding capacity [Mass/Vol] 256 ug/dL Normal 232-386 [facility] Comment on above: Order Comment: Speci men Type: BLOOD SPECIMEN Ordering Facility: [facility] Address: [address] [place] [address] Performed By: #### 5 0190-8, 2275-, #### [facility] CLIA [id number] [address] [place] [address] [place] Iron/TIBC [Molar ratio] 27.7 % Normal 15.0-57.0 [facility] Comment on above: Order Comment: Speci men Type: BLOOD SPECIMEN Ordering Facility: [facility] Address: [address] [place] [address] Performed By: #### 5 0190-8, 2275-, #### [facility] CLIA [id number] [address] [place] [address] [place] TYPE AND SCREEN,30 DAYon ABO O Normal [facility] Comment on above: Order Comment: Speci men Type: BLOOD SPECIMEN Ordering Facility: [facility] Address: [address] [place] [address] Performed By: #### T [id number] #### [facility] CLIA [id number] [address] [place] [address] [place] HISTORICAL AB SCR STATUS Negative Normal [facility] Comment on above: Order Comment: Speci men Type: BLOOD SPECIMEN Ordering Facility: [facility] Address: [address] [place] [address] Performed By: #### T [id number] #### [facility] CLIA [id number] [address] [place] [address] [place] Rh Nom (Bld) Positive Normal [facility] Comment on above: Order Comment: Speci men Type: BLOOD SPECIMEN Ordering Facility: [facility] Address: [address] [place] [address] Performed By: #### T SCR30 #### [facility] CLIA [id number] [address] [place] [address] [place] URINALYSIS, REFLEX MICROSCOP ICon 11-15-2023 Bilirubin Ql (U) Negative Normal Negative [facility] Comment on above: Order Comment: Speci men Type: URINE SPECIMEN Ordering Facility: [facility] Address: [address] [place] [address] Performed By: #### L [id number] #### [facility] CLIA [id number] [address] [place] [address] [place] Clarity (Unsp spec) Clear Normal Clear [facility] Comment on above: Order Comment: Speci men Type: URINE SPECIMEN Ordering Facility: [facility] Address: [address] [place] [address] Performed By: #### L [id number] #### [facility] CLIA [id number] [address] [place] [address] [place] Color (U) Yellow Normal Yellow [facility] Comment on above: Order Comment: Speci men Type: URINE SPECIMEN Ordering Facility: [facility] Address: [address] [place] [address] Performed By: #### L [id number] #### [facility] CLIA [id number] [address] [place] [address] [place] Glucose Test strip (U) [Mass/Vol] Negative Normal Negative [facility] Comment on above: Order Comment: Speci men Type: URINE SPECIMEN Ordering Facility: [facility] Address: [address] [place] [address] Performed By: #### L [id number] #### [facility] CLIA [id number] [address] [place] [address] [place] Hemoglobin Ql (U) Negative Normal Negative [facility] Comment on above: Order Comment: Speci men Type: URINE SPECIMEN Ordering Facility: [facility] Address: [address] [place] [address] Performed By: #### L [id number] #### [facility] CLIA [id number] [address] [place] [address] [place] Ketones Ql (U) Negative Normal Negative [facility] Comment on above: Order Comment: Speci men Type: URINE SPECIMEN Ordering Facility: [facility] Address: [address] [place] [address] Performed By: #### L [id number] #### [facility] CLIA [id number] [address] [place] [address] [place] Leukocyte esterase Test strip Ql (U) Negative Normal Negative [facility] Comment on above: Order Comment: Speci men Type: URINE SPECIMEN Ordering Facility: [facility] Address: [address] [place] [address] Performed By: #### L [id number] #### [facility] CLIA [id number] [address] [place] [address] [place] Nitrite Ql (U) Negative Normal Negative [facility] Comment on above: Order Comment: Speci men Type: URINE SPECIMEN Ordering Facility: [facility] Address: [address] [place] [address] Performed By: #### L [id number] #### [facility] CLIA [id number] [address] [place] [address] [place] pH (U) 6.5 [pH] Normal <8.5 [facility] Comment on above: Order Comment: Speci men Type: URINE SPECIMEN Ordering Facility: [facility] Address: [address] [place] [address] Performed By: #### L [id number] #### [facility] CLIA [id number] [address] [place] [address] [place] Protein (U) [Mass/Vol] Negative Normal Negative [facility] Comment on above: Order Comment: Speci men Type: URINE SPECIMEN Ordering Facility: [facility] Address: [address] [place] [address] Performed By: #### L [id number] #### [facility] CLIA [id number] [address] [place] [address] [place] Specific gravity (U) [Rel density] 1.015 Normal 1.005-1.030 [facility] Comment on above: Order Comment: Speci men Type: URINE SPECIMEN Ordering Facility: [facility] Address: [address] [place] [address] Performed By: #### L [id number] #### [facility] CLIA [id number] [address] [place] [address] [place] Urobilinogen Ql (U) 0.2 EU/dL Normal 0.2-1.0 EU/dL [facility] Comment on above: Order Comment: Speci men Type: URINE SPECIMEN Ordering Facility: [facility] Address: [address] [place] [address] Performed By: #### L [id number] #### [facility] CLIA [id number] [address] [place] [address] OF [place] Barbie 09-05-2023 DONTE Telephone ([facility]) CHRISTIAN NOYOLA ([id number]) 1950 F Date Time Provider Department 09/05/23 [...] Encounter Status:Closed by DEBBI BRIZUELA on 09/05/23 [facility] CNOVon 09-04-2023 CNOV Office Visit (NSFRVW ) CHRISTIAN NOYOLA ([id number]) 1950 F Date Time Provider Department 09/04/23 [...] has been (more content not included)... Normal [facility] MG MAMM SCREEN 3D STEFAN CADon 07-27-2022 MG MAMM SCREEN 3D STEFAN CAD Patient: CHRISTIAN NOYOLA Exam Date: 07/27/2022 : 1950 Gender:F Ordering : DR JORDAN AVITIA D.O. Admission #: [id number] Family : Order #: [id number] CLICK HERE TO VIEW EXAM RADIOLOGY REPORT [...] breast cancer at age 47. LOCATION: [facility] BREAST COMPOSITION: Heterogeneously dense,which may obscure [...] MD on 07/27/2022 at 13:38 Normal [facility] MRI LSPINE WO CONon 06-03-20 22 [...] by: BONNY SHORE Date: 2022-06-03 11:34 Normal [facility] CBC Without Differentialon 0 10-10-2020 Erythrocyte distribution width (RBC) [Ratio] 12.9 % Normal 11.9-15.3 [facility] Comment on above: Performed By: #### C JOIACH, OUTREACH LIPID, OUTREACH CMP #### [address] [place] [address] Hematocrit (Bld) [Volume fraction] 42.4 % Normal 34.0-46.4 [facility] Comment on above: Performed By: #### C BCNOOUTREACH, OUTREACH LIPID, OUTREACH CMP #### [address] Hemoglobin (Bld) [Mass/Vol] 14.9 g/dL Normal 11.8-15.4 [facility] Comment on above: Performed By: #### C BCNOOUTREACH, OUTREACH LIPID, OUTREACH CMP #### [address] MCH (RBC) [Entitic mass] 31.9 pg Normal 24.7-34.3 [facility] Comment on above: Performed By: #### C BCNOOUTREACH, OUTREACH LIPID, OUTREACH CMP #### [address] MCV (RBC) [Entitic vol] 90.9 fL Normal 80-100 [facility] Comment on above: Performed By: #### C BCNOOUTREACH, OUTREACH LIPID, OUTREACH CMP #### [address] Mean Corpuscular HGB Conc 35.1 g/dL High 32.0-35.0 [facility] Comment on above: Performed By: #### C BCNOOUTREACH, OUTREACH LIPID, OUTREACH CMP #### [address] [place] [address] Platelet mean volume (Bld) [Entitic vol] 8.4 fL Normal 6.3-10.7 [facility] Comment on above: Result Comment: PERF ORMED BY: [place] [address] PATHOLOGIST ACCESS CONSULTANT RANDY STEEL M.D. Performed By: #### C BCNOOUTREACH, OUTREACH LIPID, OUTREACH CMP #### [place] [address] [place] Platelets (Bld) [#/Vol] 175 10*3/uL Normal 150-450 [facility] Comment on above: Performed By: #### C BCNOOUTREACH, OUTREACH LIPID, OUTREACH CMP #### [place] [address] [place] RBC (Bld) [#/Vol] 4.66 10*6/uL Normal 3.60-5.00 [facility] Comment on above: Performed By: #### C BCNOOUTREACH, OUTREACH LIPID, OUTREACH CMP #### [facility] [address] WBC (Bld) [#/Vol] 5.2 10*3/uL Normal 3.8-11.6 [facility] Comment on above: Performed By: #### C BCNOOUTREACH, OUTREACH LIPID, OUTREACH CMP #### [facility] [address] CMP Outreachon 10-10-2020 Albumin [Mass/Vol] 4.0 g/dL Normal 3.2-5.5 [facility] Comment on above: Performed By: #### C BCNOOUTREACH, OUTREACH LIPID, OUTREACH CMP #### [facility] [address] [place] [address] [place] ALP [Catalytic activity/Vol] 86 U/L Normal 32-92 [facility] Comment on above: Performed By: #### C BCNOOUTREACH, OUTREACH LIPID, OUTREACH CMP #### [facility] [address] [place] [address] [place] ALT [Catalytic activity/Vol] 38 U/L Normal 10-60 [facility] Comment on above: Performed By: #### C BCNOOUTREACH, OUTREACH LIPID, OUTREACH CMP #### [facility] [address] [place] [address] [place] AST [Catalytic activity/Vol] 31 U/L Normal 10-42 [facility] Comment on above: Performed By: #### C BCNOOUTREACH, OUTREACH LIPID, OUTREACH CMP #### [facility] [address] [place] [address] [place] Bilirubin [Mass/Vol] 0.6 mg/dL Normal 0.3-1.2 [facility] Comment on above: Performed By: #### C BCNOOUTREACH, OUTREACH LIPID, OUTREACH CMP #### [facility] [address] [place] [address] [place] Calcium [Mass/Vol] 9.6 mg/dL Normal 8.2-10.2 [facility] Comment on above: Performed By: #### C BCNOOUTREACH, OUTREACH LIPID, OUTREACH CMP #### [facility] [address] [place] [address] [place] Chloride [Moles/Vol] 105 mmol/L Normal 95-114 [facility] Comment on above: Performed By: #### C BCNOOUTREACH, OUTREACH LIPID, OUTREACH CMP #### [facility] [address] [place] [address] [place] CO2 [Moles/Vol] 26.3 mmol/L Normal 22.0-30.0 [facility] Comment on above: Performed By: #### C BCNOOUTREACH, OUTREACH LIPID, OUTREACH CMP #### [facility] [address] Creatinine [Mass/Vol] 1.03 mg/dL Normal 0.44-1.03 [facility] Comment on above: Performed By: #### C BCNOOUTREACH, OUTREACH LIPID, OUTREACH CMP #### [facility] [address] Estimated GFR ( [place] > 60 [facility] Comment on above: Result Comment: GFR estimated reference range: According to KDOQI guidelines, <60 ml/min/1.73m2 is sufficient to diagnose a patient with chronic kidney disease. Performed By: #### C BCNOOUTREACH, OUTREACH LIPID, OUTREACH CMP #### [facility] [address] [place] [address] [place] Estimated GFR (Non- Am 53 [facility] Comment on above: Performed By: #### C BCNOOUTREACH, OUTREACH LIPID, OUTREACH CMP #### [facility] [address] [place] [address] [place] Glucose [Mass/Vol] 94 mg/dL Normal 70-100 [facility] Comment on above: Result Comment: [place] Glucose Reference Range is dependent on time and content of last meal. Glucose of more than 200 mg/dL in a nonstressed, ambulatory subject supports the diagnosis of Diabetes Mellitus. ADA recommended reference range Performed By: #### C BCNOOUTREACH, OUTREACH LIPID, OUTREACH CMP #### [facility] [address] [place] [address] [place] Potassium [Moles/Vol] 4.4 mmol/L Normal 3.5-5.1 [facility] Comment on above: Performed By: #### C BCNOOUTREACH, OUTREACH LIPID, OUTREACH CMP #### [facility] [address] [place] [id number] [place] Protein [Mass/Vol] 7.0 g/dL Normal 6.1-7.9 [facility] Comment on above: Performed By: #### C BCNOOUTREACH, OUTREACH LIPID, OUTREACH CMP #### [facility] [address] [place] [address] [place] Sodium [Moles/Vol] 141 mmol/L Normal 136-146 [facility] Comment on above: Performed By: #### C BCNOOUTREACH, OUTREACH LIPID, OUTREACH CMP #### [facility] [address] [place] [address] [place] Urea nitrogen [Mass/Vol] 12 mg/dL Normal 9-23 [facility] Comment on above: Performed By: #### C BCNOOUTREACH, OUTREACH LIPID, OUTREACH CMP #### [facility] [address] [place] [address] [place] Lipid Profile Outreachon Cholesterol [Mass/Vol] 336 mg/dL High 140-200 [facility] Comment on above: Result Comment: Chol less than 200 mg/dl low risk Chol 201-239 mg/dl borderline risk Chol 240 mg/dl and greater high risk Performed By: #### C BCNOOUTREACH, OUTREACH LIPID, OUTREACH CMP #### [facility] [address] [place] [id number] [place] Cholesterol in HDL [Mass/Vol] 48 mg/dL Normal 35-85 [facility] Comment on above: Result Comment: HDL CHOL ATP-III CLASSIFICATION Cardiovascular Risk HDL > or equal to 60 mg/dL LOW HDL < 40 mg/dL HIGH Performed By: #### C BCNOOUTREACH, OUTREACH LIPID, OUTREACH CMP #### [facility] [address] Cholesterol.total/Ch olesterol in HDL [Mass ratio] 7.0 {ratio} Normal <5.0 [facility] Comment on above: Result Comment: PERF ORMED BY: [place] [address] PATHOLOGIST ACCESS CONSULTANT RANDY STEEL M.D. Performed By: #### C BCNOOUTREACH, OUTREACH LIPID, OUTREACH CMP #### [facility] [address] [place] [address] LDL Cholesterol,Calculat ed 250 mg/dL High 0-100 [facility] Comment on above: Result Comment: LDL ATP III CLASSIFICATION LDL less than 100 mg/dL Optimal LDL 100-129 mg/dL Near or above optimal LDL 130-159 mg/dL Borderline high LDL 160-189 mg/dL High LDL greater than 189 mg/dL Very high Performed By: #### C BCNOOUTREACH, OUTREACH LIPID, OUTREACH CMP #### [facility] [address] [place] [address] Triglyceride w/Reflex 192 mg/dL High 35-149 [facility] Comment on above: Result Comment: TRIG ATP III CLASSIFICATION TRIG less than 150 mg/dL Normal TRIG 150-199 mg/dL Borderline high TRIG 200-500 mg/dL High TRIG greater than 500 mg/dL Very high Standard traceable to the Center for Disease Conrtrol and Prevention (CDC) test method. Performed By: #### C BCNOOUTREACH, OUTREACH LIPID, OUTREACH CMP #### [facility] [address] [place] [address] VLDL CHOLESTEROL 38 mg/dL Normal [facility] Comment on above: Performed By: #### C BCNOOUTREACH, OUTREACH LIPID, OUTREACH CMP #### [facility] [address] [place] [address] [place] Vital Signs Date Time Vital Sign Value Performing Clinician Facility 02-11-2025 14:05-0400 Body height 165.1 cm Jordan Ball DO Work Phone: [facility] 02-11-2025 14:05-0400 Body mass index (BMI) [Ratio] 31.6 kg/m2 Jordan Ball DO Work Phone: [facility] 02-11-2025 14:05-0400 Body weight 86.18 kg Jordan Ball DO Work Phone: [facility] 02-11-2025 14:05-0400 Diastolic blood pressure 86 mm[Hg] Jordan Ball DO Work Phone: [facility] 02-11-2025 14:05-0400 Heart rate 76 /min Jordan Ball DO Work Phone: [facility] 02-11-2025 14:05-0400 Respiratory rate 16 /min Jordan Ball DO Work Phone: [facility] 02-11-2025 14:05-0400 SaO2% (BldA) [Mass fraction] 97 % Jordan Ball DO Work Phone: [facility] 02-11-2025 14:05-0400 Systolic blood pressure 132 mm[Hg] Jordan Ball DO Work Phone: [facility] 05-14-2024 12:15-0500 Body height 162.6 cm [facility] 05-14-2024 12:15-0500 Body mass index (BMI) [Ratio] 32.61 kg/m2 [facility] 05-14-2024 12:15-0500 Body weight 86.18 kg [facility] 05-14-2024 08:50-0500 Body height 165.1 cm Rossana Miller DO Work Phone: [facility] 05-14-2024 08:50-0500 Body mass index (BMI) [Ratio] 31.62 kg/m2 Rossana Farmerston DO Work Phone: [facility] 05-14-2024 08:50-0500 Body weight 86.18 kg Rossana Farmerston DO Work Phone: [facility] 05-07-2024 10:00-0400 Body height 165.1 cm [facility] 05-07-2024 10:00-0400 Body mass index (BMI) [Ratio] 32.3 kg/m2 [facility] 05-07-2024 10:00-0400 Body weight 87.99 kg [facility] 05-07-2024 10:00-0400 Diastolic blood pressure 79 mm[Hg] [facility] 05-07-2024 10:00-0400 Heart rate 59 /min [facility] 05-07-2024 10:00-0400 Respiratory rate 12 /min [facility] 05-07-2024 10:00-0400 Systolic blood pressure 166 mm[Hg] [facility] 02-08-2024 11:15-0400 Body height 165.1 cm [facility] 02-08-2024 11:15-0400 Body mass index (BMI) [Ratio] 31.8 kg/m2 [facility] 02-08-2024 11:15-0400 Body weight 86.69 kg [facility] 02-08-2024 11:15-0400 Heart rate 68 /min [facility] 02-08-2024 11:15-0400 Respiratory rate 12 /min [facility] 12-28-2023 12:42-0400 Body height 162.6 cm Litzy Todd VALUE ANALYST.RUBBER GOODS INSPECTOR Work Phone: [facility] 12-28-2023 12:42-0400 Body mass index (BMI) [Ratio] 33.03 kg/m2 Litzy Todd VALUE ANALYST.RUBBER GOODS INSPECTOR Work Phone: [facility] 12-28-2023 12:42-0400 Body weight 87.27 kg Litzy Todd VALUE ANALYST.RUBBER GOODS INSPECTOR Work Phone: [facility] 12-28-2023 12:42-0400 Diastolic blood pressure 64 mm[Hg] Litzy Todd VALUE ANALYST.RUBBER GOODS INSPECTOR Work Phone: [facility] 12-28-2023 12:42-0400 Heart rate 78 /min Litzy Todd VALUE ANALYST.RUBBER GOODS INSPECTOR Work Phone: [facility] 12-28-2023 12:42-0400 SaO2% (BldA) [Mass fraction] 95 % Litzy Todd VALUE ANALYST.RUBBER GOODS INSPECTOR Work Phone: [facility] 12-28-2023 12:42-0400 Systolic blood pressure 137 mm[Hg] Litzy Todd APRN.RUBBER GOODS INSPECTOR Work Phone: [facility] 11-15-2023 13:02-0400 Body height 162.6 cm Pacc 2 Work Phone: [facility] 11-15-2023 13:02-0400 Body mass index (BMI) [Ratio] 33.07 kg/m2 Pacc 2 Work Phone: [facility] 11-15-2023 13:02-0400 Body temperature 97.2 [degF] Pacc 2 Work Phone: [facility] 11-15-2023 13:02-0400 Body weight 87.4 kg Pacc 2 Work Phone: [facility] 11-15-2023 13:02-0400 Diastolic blood pressure 76 mm[Hg] Pacc 2 Work Phone: [facility] 11-15-2023 13:02-0400 Heart rate 91 /min Pacc 2 Work Phone: [facility] 11-15-2023 13:02-0400 Respiratory rate 14 /min Pacc 2 Work Phone: [facility] 11-15-2023 13:02-0400 SaO2% (BldA) [Mass fraction] 100 % Pacc 2 Work Phone: [facility] 11-15-2023 13:02-0400 Systolic blood pressure 136 mm[Hg] Pacc 2 Work Phone: [facility] 05-11-2023 11:00-0400 Body height 165.1 cm Jordan Ball Other [employer] Other 05-11-2023 11:00-0400 Body mass index (BMI) [Ratio] 32.41 kg/m2 Jordan Ball Other [employer] Other 05-11-2023 11:00-0400 Body weight 88.36 kg Jordan Ball Other [employer] Other 05-11-2023 11:00-0400 Diastolic blood pressure 80 mm[Hg] Jordan Ball Other [employer] Other 05-11-2023 11:00-0400 Respiratory rate 12 /min Jordan Ball Other [employer] Other 05-11-2023 11:00-0400 Systolic blood pressure 118 mm[Hg] Jordan Ball Other [employer] Other 02-16-2023 13:53-0400 Body height 165.1 cm Jordan Ball Other [employer] Other 02-16-2023 13:53-0400 Diastolic blood pressure 72 mm[Hg] Jordan Ball Other [employer] Other 02-16-2023 13:53-0400 Systolic blood pressure 152 mm[Hg] Jordan Ball Other [employer] Other 09-05-2022 12:34-0500 Body height 162.6 cm Jorge Desai MD Work Phone: [facility] 09-05-2022 12:34-0500 Body temperature 97.59 [degF] Jorge Desai MD Work Phone: [facility] 09-05-2022 12:34-0500 Body weight 88.91 kg Jorge Desai MD Work Phone: [facility] 09-05-2022 12:34-0500 Diastolic blood pressure 87 mm[Hg] Jorge Desai MD Work Phone: [facility] 09-05-2022 12:34-0500 Heart rate 67 /min Jorge Desai MD Work Phone: [facility] 09-05-2022 12:34-0500 Respiratory rate 20 /min Jorge Desai MD Work Phone: [facility] 09-05-2022 12:34-0500 SaO2% (BldA) [Mass fraction] 98 % Jorge Desai MD Work Phone: [facility] 09-05-2022 12:34-0500 Systolic blood pressure 183 mm[Hg] Jorge Desai MD Work Phone: [facility] Encounters Encounter Date Encounter Type Care Provider Facility Start: 02-11-2025 End: 02-11-2025 ambulatory Jordan Adore Work Phone: [facility] Work Phone: Start: 02-11-2025 End: 02-11-2025 Patient encounter procedure Jordan Avitia DO -[facility] Work Phone: Start: 06-17-2024 End: 06-17-2024 Bamboo flowsheet Eula Castillo SEWING MACHINE OPERATOR PAPER BAGS Work Phone: [facility] Start: 06-17-2024 End: 06-17-2024 Bamboo flowsheet Eula Castillo SEWING MACHINE OPERATOR PAPER BAGS Work Phone: [facility] Start: 06-17-2024 End: 06-17-2024 Postop follow up visit related to original px Eula Castillo SEWING MACHINE OPERATOR PAPER BAGS Work Phone: [facility] Comment on above: S/P trigger finger r elease (Primary Dx); Carpal tunnel syndrome of right wrist Start: 06-17-2024 End: 06-17-2024 ambulatory EULA CASTILLO Not Available Start: 05-22-2024 End: 05-22-2024 Bamboo flowsheet Eula Castillo SEWING MACHINE OPERATOR PAPER BAGS Work Phone: [facility] Start: 05-22-2024 End: 05-22-2024 Bamboo flowsheet Eula Castillo SEWING MACHINE OPERATOR PAPER BAGS Work Phone: [facility] Start: 05-22-2024 End: 05-22-2024 Postop follow up visit related to original px Eula Barbozaing SEWING MACHINE OPERATOR PAPER BAGS Work Phone: [facility] Comment on above: S/P trigger finger r elease (Primary Dx) Start: 05-22-2024 End: 05-22-2024 ambulatory EULA B APLING Not Available Start: 05-15-2024 End: 05-15-2024 Evaluation and management of inpatient JORDAN AVITIA [facility] Start: 05-14-2024 End: 05-14-2024 Office outpatient visit 15 minutes Rossana Miller DO Work Phone: [facility] Comment on above: Pain of right thumb (Primary Dx); Trigger finger of right thumb Start: 05-14-2024 End: 05-14-2024 Refill Brody Castro SEWING MACHINE OPERATOR PAPER BAGS Work Phone: [facility] Comment on above: Trigger finger of ri ght thumb (Primary Dx) Start: 05-13-2024 End: 05-13-2024 Bamboo flowsheet Eula Perez Apling SEWING MACHINE OPERATOR PAPER BAGS Work Phone: [facility] Start: 05-13-2024 End: 05-13-2024 Bamboo flowsheet Eula B Apling SEWING MACHINE OPERATOR PAPER BAGS Work Phone: [facility] Start: 05-13-2024 End: 05-13-2024 Office outpatient visit 15 minutes Eula Barbozaing SEWING MACHINE OPERATOR PAPER BAGS Work Phone: [facility] Comment on above: Pain of right thumb (Primary Dx); Trigger finger of right thumb Start: 05-13-2024 End: 05-13-2024 ambulatory EULA B APLING Not Available Start: 05-07-2024 End: 05-07-2024 ambulatory [facility] Work Phone: Start: 05-07-2024 End: 05-07-2024 Patient encounter procedure [facility] Work Phone: Start: 04-11-2024 Non-patient / Non-visit [facility] Work Phone: Start: 02-08-2024 End: 02-08-2024 ambulatory [facility] Work Phone: Start: 02-08-2024 End: 02-08-2024 Patient encounter procedure [facility] Work Phone: Start: 01-24-2024 End: 01-24-2024 Admission to same day surgery center Jorge Desai MD Work Phone: Neurosurgery Comment on above: Lumbar stenosis with neurogenic claudication (Primary Dx) Start: 01-24-2024 End: 01-24-2024 Telemedicine consultation with patient Jorge Desai MD Work Phone: Neurosurgery Start: 01-24-2024 End: 01-24-2024 ambulatory JORGE DESAI Facility:[facility] Start: 01-23-2024 Telephone encounter Jorge santana MD Work Phone: Neurology Comment on above: [employer]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 Start: 01-15-2024 End: 01-15-2024 ambulatory Melonie Granado RT(R) Radiology Comment on above: Radiology XR Start: 01-15-2024 Patient encounter procedure Melonie Granado RT(R) Radiology Start: 01-15-2024 End: 01-15-2024 Subsequent hospital visit by physician Litzy Todd VALUE ANALYST.RUBBER GOODS INSPECTOR Work Phone: Radiology Comment on above: S/P lumbar fusion [Z 98.1] Start: 12-28-2023 End: 12-28-2023 Patient encounter procedure Litzy Todd VALUE ANALYST.RUBBER GOODS INSPECTOR Work Phone: Neurosurgery Comment on above: S/P lumbar fusion (P rimary Dx) Start: 12-28-2023 End: 12-28-2023 ambulatory LITZY TODD Facility:[facility] Start: 12-18-2023 Telephone encounter Jorge santana MD Work Phone: Neurology Comment on above: Fever Start: 12-15-2023 End: 12-16-2023 Evaluation and management of inpatient JORGE DESAI Facility:[facility] Start: 12-05-2023 End: 12-05-2023 Refill Jorge Desai MD Work Phone: Neurology Start: 11-15-2023 Encounter for other preprocedural examination LITZYMAICO VERNONVAHE [facility] Start: 11-15-2023 End: 11-15-2023 Admission to establishment [facility] 2 Work Phone: Pre Anesthesia Start: 11-15-2023 End: 11-15-2023 ambulatory GEORGETTE SANTOS Facility:[facility] Start: 11-15-2023 End: 11-15-2023 Anesthesia consultation [facility] Work Phone: Pre Anesthesia Comment on above: Pre-op evaluation (P rimary Dx); Pre-op testing; Primary hypertension; Pain in right hip; Pain, unspecified Start: 11-15-2023 End: 11-15-2023 Patient encounter status [facility] 2 Work Phone: [facility] Start: 11-15-2023 End: 11-15-2023 [facility]: [facility] Work Phone: Start: 11-07-2023 End: 11-07-2023 ambulatory JULIANNA HALL Not Available Start: 09-05-2023 ambulatory Jorge Desai MD Work Phone: Neurosurgery Start: 09-05-2023 Patient encounter status Jorge Desai MD Work Phone: [facility] Start: 09-05-2023 Telephone encounter Jorge santana MD Work Phone: Neurology Comment on above: Surgery Date Start: 09-04-2023 End: 09-04-2023 ambulatory SELF Facility:[facility] Start: 08-01-2023 End: 08-01-2023 ambulatory Jordan Avitia Other [employer] Other Start: 08-01-2023 Telephone encounter Jordan Ball [facility] Start: 06-21-2023 End: 06-21-2023 ambulatory Jordan Ball Other [employer] Other Start: 06-21-2023 Telephone encounter Jordan Ball [facility] Start: 06-19-2023 End: 06-19-2023 ambulatory Jordan Ball Other [employer] Other Start: 06-19-2023 Office outpatient vi sit 15 minutes Jordan Ball [facility] Start: 05-18-2023 End: 05-18-2023 ambulatory Jordan Ball Other [employer] Other Start: 05-18-2023 Telephone encounter Jordan Ball [facility] Start: 05-11-2023 End: 05-11-2023 ambulatory Jordan Ball Other [employer] Other Start: 05-11-2023 Office outpatient vi sit 25 minutes Jordan Ball [facility] Start: 03-21-2023 End: 03-21-2023 ambulatory Jordan Ball Other [employer] Other Start: 03-21-2023 Telephone encounter Jordan Ball [facility] Start: 02-19-2023 End: 02-19-2023 ambulatory Jordan Ball Other [employer] Other Start: 02-19-2023 Telephone encounter Jordan Ball [facility] Start: 02-16-2023 End: 02-16-2023 ambulatory Jordan Ball Other [employer] Other Start: 02-16-2023 Telephone encounter Jordan Ball [facility] Start: 02-10-2023 End: 02-10-2023 ambulatory Jordan Ball Other [employer] Other Start: 02-10-2023 Telephone encounter Jordan Ball [facility] Start: 02-09-2023 End: 02-09-2023 ambulatory Jordan Avitia Other [facility] [employer] Other Start: 02-09-2023 Telephone encounter Jordan Avitia PRAVIN Avitia [facility] Start: 02-06-2023 End: 02-07-2023 ambulatory Jessica Mi MD Facility:[facility] Start: 12-06-2022 End: 12-07-2022 ambulatory NARENDRANATH LAKSHMIPATHY . Facility:[facility] Start: 11-15-2022 End: 11-15-2022 ambulatory NARENDRANATH LAKSHMIPATHY . Facility:[facility] Start: 11-03-2022 End: 11-04-2022 ambulatory NARENDRANATH LAKSHMIPATHY . Facility:[facility] Start: 10-18-2022 End: 10-18-2022 ambulatory NARENDRANATH LAKSHMIPATHY . Facility:[facility] Start: 10-06-2022 End: 10-07-2022 ambulatory NARENDRANATH LAKSHMIPATHY . Facility:[facility] Start: 09-09-2022 End: 10-12-2022 ambulatory NEHA GREWLA . Facility:[facility] Start: 09-09-2022 Telephone encounter Jroge santana MD Work Phone: Neurology Comment on [...] spine lumbosac ral 2/3 views Litzy Todd VALUE ANALYST.RUBBER GOODS INSPECTOR Work Phone: Start: 11-15-2023 Antibody screen LITZY TODD Comment on above: Order Comment: Speci men Type: BLOOD SPECIMEN Ordering Facility: [facility] Address: [address] [place] [address] Performed By: #### T [id number] #### [facility] CLIA [id number] [address] [place] [address] Start: 11-15-2023 Ecg routine ecg w/le ast 12 lds i&r only [facility] Provider H/O: surgery S/P trigger fing er release Eula Castillo SEWING MACHINE OPERATOR PAPER BAGS Work Phone: H/O: surgery S/P trigger fing er release Eula Castillo NP Work Phone: Plan of Treatment Date Care Activity Detail Author Start: 12-15-2026 Diabetes Screening Diabetes Screenin g [facility] Start: 11-14-2026 Diabetes Screening Diabetes Screenin [facility] Start: 02-13-2026 Screening for malign ant neoplasm of colon [facility] Start: 05-14-2025 Adult BMI Screening Adult BMI Screen ing [facility] Start: 05-14-2025 Tobacco Screening Tobacco Screening [facility] Start: 06-19-2024 End: 06-19-2024 Patient encounter procedure 06/19/2024 8:30 AM EST Office Visit [facility] [address] [place] [address] Eula Castillo NP [address] [place] [address] [facility] Start: 06-17-2024 End: 06-17-2024 Patient encounter procedure 06/17/2024 9:30 AM EST Office Visit [facility] [address] [place] [id number] Eula Castillo SEWING MACHINE OPERATOR PAPER BAGS [address] [place] [address] S/P trigger finger release (Primary Dx) [facility] Comment on above: S/P trigger finger r elease (Primary Dx) Start: 05-22-2024 End: 05-22-2024 Patient encounter procedure 05/22/2024 9:00 AM EST Office Visit [facility] [address] [place] [address] Eula Castillo, SEWING MACHINE OPERATOR PAPER BAGS [address] [place] [address] [facility] Start: 05-15-2024 End: 05-15-2024 Tendon sheath incision RELEASE TRIGGER FINGER right trigger thumb 05/15/2024 10:03 AM EST [facility] Start: 05-14-2024 End: 05-14-2024 Patient encounter procedure 05/14/2024 9:00 AM EST Office Visit [facility] [address] [place] [address] Rossana Miller DO [address] [place] [address] [facility] Start: 05-13-2024 End: 05-13-2024 Patient encounter procedure 05/13/2024 1:00 PM EST Office Visit [facility] [address] [place] [address] Eula Castillo, SEWING MACHINE OPERATOR PAPER BAGS [address] [place] [address] Arrived [facility] Comment on above: Arrived Start: 05-07-2024 Patient referral [facility] Work Phone: Start: 04-15-2024 DTaP,Tdap and Td Vaccines (2 - Td or Tdap) DTaP,Tdap and Td Vaccines (2 - Td or Tdap) [facility] Start: 03-10-2024 Influenza vaccination Influenza Vacc ine (#1) [facility] Start: 01-24-2024 End: 01-24-2024 Admission to same day surgery center 01/24/2024 3:20 PM EDT [facility] Neurosurgery [address] [place] [address] [place] [address] [facility] [place] [address] VV Post op Neurosurgery Comment on above: VV Post op Start: 12-28-2023 End: 12-28-2023 Patient encounter procedure 12/28/2023 1:00 PM EDT Office Visit Neurosurgery [address] [place] [address] Jodi Vega PA-C [address] [place] [address] post op Neurosurgery Comment on above: post op Start: 12-15-2023 End: 12-15-2023 Admission to same day surgery center 12/15/2023 10:00 AM EDT - 12/15/2023 1:20 PM EDT Surgery [facility] Operating Room [address] [address] [place] [address] [place] [address] LATERAL INTERBODY FUSION (LIF); LUMBAR [facility] Comment on above: LATERAL [...] physician 12/15/2023 10:00 AM EDT Hospital Encounter [facility] Operating Room [address] [address] [place] [address] [place] [address] Spinal stenosis, lumbar region with neurogenic claudication [M48.062] [facility] Comment on above: Spinal stenosis, lum bar region with neurogenic claudication [M48.062] Start: 12-05-2023 End: 12-05-2023 Patient encounter procedure 12/05/2023 11:45 AM EDT Office [place] [address] [facility] registration [employer] [facility] [facility] Comment on above: [facility] registration Start: 11-15-2023 End: 02-14-2024 Bacteria identified in Urine by Culture [facility] Comment on above: Expected: 11/15/2023 , Expires: 02/14/2024 Start: 11-15-2023 End: 02-14-2024 Comprehensive metabolic 2000 panel - Serum or Plasma [facility] Work Phone: Comment on above: Expected: 11/15/2023 , Expires: 02/14/2024 Start: 11-15-2023 End: 02-14-[address] [facility] Comment on above: Expected: 11/15/2023 , Expires: 02/14/2024 Start: 11-15-2023 End: 02-14-2024 Ferritin [Mass/volume] in Serum or Plasma [facility] Comment on above: Expected: 11/15/2023 , Expires: 02/14/2024 Start: 11-15-2023 End: 02-14-2024 Iron and Iron binding capacity panel - Serum or Plasma [facility] Comment on above: Expected: 11/15/2023 , Expires: 02/14/2024 Start: 11-15-2023 End: 02-14-2024 TYPE AND SCREEN,[address] [facility] Comment on above: Expected: 11/15/2023 , Expires: 02/14/2024 Start: 11-15-2023 End: 02-14-2024 URINALYSIS, REFLEX MICROSCOPIC [facility] Comment on above: Expected: 11/15/2023 , Expires: 02/14/2024 Start: 08-04-2023 Covid-19 Vaccine ( season) Covid-19 Vaccine ( season) [facility] Start: 08-01-2023 Shingrix Vaccine (2 of 2) Shingrix Vaccine (2 of 2) [facility] Start: 07-10-2023 Advance Directive Discussion Advance Directive Discussion [facility] Start: 07-10-2023 Behavioral Health Screening Behavioral Health Screening [facility] Start: 07-10-2023 Depression Assessment Depression Ass essment [facility] Start: 07-10-2022 ADVANCE DIRECTIVE DISCUSSION ADVANCE DIRECTIVE DISCUSSION [facility] Start: 07-10-2022 DEPRESSION ASSESSMENT DEPRESSION ASS ESSMENT [facility] Start: 06-22-2020 Pneumococcal Vaccine : 65+ (3 of 3 - PPSV23 or PCV20) Pneumococcal Vaccine: 65+ (3 of 3 - PPSV23 or PCV20) [facility] Start: 06-22-2020 Pneumococcal Vaccine : 65+ Years (3 of 3 - PPSV23 or PCV20) Pneumococcal Vaccine: 65+ Years (3 of 3 - PPSV23 or PCV20) [facility] Start: 04-10-2016 Pneumococcal Vaccine : 65+ (2 of 2 - PCV) Pneumococcal Vaccine: 65+ (2 of 2 - PCV) [facility] Start: 2015 BONE DENSITY BONE DENSITY [facility] Start: 2015 Fall Risk Screening Fall Risk Screen [facility] Start: 2015 PNEUMOCOCCAL: 65+ (1 - PCV) PNEUMOCOCCAL: 65+ (1 - PCV) [facility] Start: 2015 Screening for osteoporosis Bone Density Screening [facility] Start: 04-16-2014 Urine microalbumin profile DTaP,Tdap,Td Vaccine (1 - Tdap) [facility] Start: 2010 RSV Vaccine (1 - 1-d ose 60+ series) RSV Vaccine (1 - 1-dose 60+ series) [facility] Start: 2000 SHINGRIX VACCINE (1 of 2) SHINGRIX VACCINE (1 of 2) [facility] Start: 1995 COLOGUARD (FIT-DNA) COLOGUARD (FIT-D NA) [facility] Start: [address] [facility] Start: 1995 COLORECTAL CANCER SCREENING COLORECTAL CANCER SCREENING [facility] Start: [address] COLONOGRAPHY [facility] Start: 1995 DIABETES SCREEN [facility]CREEN [facility] Start: 1995 Diabetes Screening Diabetes Screenin g [facility] Start: 1995 FECAL OCCULT BLOOD FECAL OCCULT BLOO D [facility] Start: 1995 Lipid panel Lipid Screening [facility] Start: 1995 LIPID SCREEN LIPID SCREEN [facility] Start: 1995 Screening for malign ant neoplasm of colon [facility] Start: 1995 SIGMOIDOSCOPY SIGMOIDOSCOPY [facility] Start: [address] [facility] Start: 1990 Screening for malign ant neoplasm of breast [facility] Start: [address] [facility] Start: 1968 Adult BMI Follow Up Plan Adult BMI Follow Up Plan [facility] Start: 1968 Annual PCP Team Division [address] Supervisor freddy Disease Visit Annual PCP Team Chronic Disease Visit [facility] Start: 1968 BP Controlled (<130/80) BP Controlle d (<130/80) [facility] Start: 1968 HEPATITIS C SCREENING HEPATITIS C [facility] Start: 1968 Hepatitis C screening Hepatitis C [facility] Start: 1962 Depression Screening Depression Scre [facility] Start: 1950 Screening for malign ant neoplasm of colon [facility] metabo lic 2000 panel - Serum or Plasma [facility] ECG COMPLETE [facility] Comment on above: Ordered: 11/15/2023 Patient referral [facility] Work Phone: [facility] End: 01-26-2025 XR Lumbar spine AP and Lateral XR LUMBAR LIMITED 2V AP/LAT Radiology Routine S/P lumbar fusion 1 Occurrences starting 12/28/2023 until 01/26/2025 [facility] Work Phone: Comment on above: 1 Occurrences starti ng 12/28/2023 until 01/26/2025 [facility] Immunizations Immunization Date Immunization Notes Care Provider Quin gilmore 04-01-2024 influenza, high dose seasonal, preservative-free Brody Castro SEWING MACHINE OPERATOR PAPER BAGS Work Phone: [facility] 03-10-2024 COVID-19 mRNA Bivale nt Booster (Pfizer) Jordan Avitia DO Work Phone: [facility] 03-10-2024 influenza virus vaccine, unspecified formulation Jordan Avitia DO Work Phone: [facility] 09-16-2023 zoster vaccine recombinant Brody Castro SEWING MACHINE OPERATOR PAPER BAGS Work Phone: [facility] 06-06-2023 zoster vaccine recombinant Brody Castro SEWING MACHINE OPERATOR PAPER BAGS Work Phone: [facility] 04-04-2023 Influenza, Seasonal, Quadrivalent, Adjuvanted Brody Castro SEWING MACHINE OPERATOR PAPER BAGS Work Phone: [facility] 04-04-2023 influenza virus vaccine, unspecified formulation Melonie Granado RT(R) [facility] 11-04-2022 COVID-19 Pfizer (bivalent) Jordan Avitia Other [facility] 04-25-2022 influenza, high dose seasonal, preservative-free Jordan Avitia Other [employer] Other 04-25-2022 COVID-19 Pfizer (bivalent) Jordan Avitia Other [facility] 04-25-2022 influenza virus vaccine, unspecified formulation [facility] 04-25-2022 Influenza, Seasonal, Quadrivalent, Adjuvanted Brody Castro SEWING MACHINE OPERATOR PAPER BAGS Work Phone: [facility] 04-11-2022 influenza, injectabl e, quadrivalent, preservative free Brody Castro SEWING MACHINE OPERATOR PAPER BAGS Work Phone: [facility] 02-15-2022 COVID-19 Pfizer Jordan higuera Other [facility] 05-08-2021 Influenza, Seasonal, Quadrivalent, Adjuvanted Brody Castro SEWING MACHINE OPERATOR PAPER BAGS Work Phone: [facility] 04-14-2021 influenza, injectabl e, quadrivalent, preservative free Brody Castro SEWING MACHINE OPERATOR PAPER BAGS Work Phone: [facility] 08-13-2020 COVID-19 Vaccine Pfi zer - Documentation Purposes Only Jordan Avitia Other [facility] 03-03-2020 influenza virus vaccine, split virus (incl. purified surface antigen) Jordan Avitia Other [facility] Other 03-03-2020 influenza virus vaccine, unspecified formulation [facility] 03-03-2020 influenza, injectabl e, quadrivalent, preservative free Brody Castro SEWING MACHINE OPERATOR PAPER BAGS Work Phone: [facility] 04-20-2018 influenza, live, intranasal, quadrivalent Brody Castro SEWING MACHINE OPERATOR PAPER BAGS Work Phone: [facility] 04-16-2018 influenza virus vaccine, split virus (incl. purified surface antigen) Jordan Avitia Other [facility] Other 04-16-2018 influenza virus vaccine, unspecified formulation [facility] 04-16-2018 Seasonal trivalent influenza vaccine, adjuvanted, preservative free Brody Castro SEWING MACHINE OPERATOR PAPER BAGS Work Phone: [facility] 06-22-2015 pneumococcal conjuga te vaccine, 13 valent Jordan Avitia Other [facility] 04-10-2015 influenza, seasonal, injectable, preservative free Brody Castro SEWING MACHINE OPERATOR PAPER BAGS Work Phone: [facility] 04-10-2015 pneumococcal polysaccharide vaccine, 23 valent Jordan Avitia Other [facility] 04-15-2014 tetanus and diphther ia toxoids, adsorbed, preservative free, for adult use (5 Lf of tetanus toxoid and 2 Lf of diphtheria toxoid) Jordan Avitia Other [facility] 10-11-2013 pneumococcal polysaccharide vaccine, 23 valent Jordan Avitia Other [facility] Payers Date Payer Category Payer Private Health Insurance [employer] [id number] 2023 Commercial Managed C are - POS [employer] [id number] 2023 Private Health Insurance [id number] 2015 Medicare [id number] .[id number] 2015 Unknown [id number]. 1.13.159 .[id number] 2015 Unknown [id number] 1959 Medicare [id number] 1959 Unknown [id number] 1950 Unknown [id number] 2.16.840.1.265438.3.579 .2.593 1950 Unknown [id number] 2.16.840.1.074825.3.579 .2.593 1950 Unknown [id number] 2.16.840.1.122360.3.579 .2.593 1950 Unknown [id number] 2.16.840.1.315132.3.579 .2.593 1950 Unknown [id number] 2.16.840.1.964568.3.579 .2.593 1950 Unknown [id number] 2.16.840.1.440815.3.579 .2.593 1950 Unknown [id number] 2.16.840.1.209629.3.579 .2.593 1950 Unknown [id number] 2.16.840.1.328823.3.579 .2.593 1950 Unknown [id number] 2.16.840.1.785569.3.579 .2.593 1950 Unknown [id number] 2.16.840.1.356745.3.579 .2.593 1950 Unknown [id number] 2.16.840.1.998884.3.579 .2.593 1950 Unknown [id number] 2.16.840.1.790949.3.579 .2.196 1950 Unknown [id number] 2.16.840.1.751747.3.579 .2.1286 1950 Unknown [id number] 2.16.840.1.585018.3.579 .2.1286 1950 Unknown [id number] 2.16.840.1.784568.3.579 .2.1259 1950 Unknown [id number] 2.16.840.1.751255.3.579 .2.1259 1950 Unknown [id number] 2.16.840.1.402430.3.579 .2.1259 1950 Unknown [id number] 2.16.840.1.923454.3.579 .2.1259 1950 Unknown [id number] 2.16.840.1.907182.3.579 .2.1259 Medicare Medicare Nonpatient [id number] 1A [id number] Private Health Insurance A[employer]na [facility] [id number] Self-pay Self Pay [id number] Social History Date Type Detail Facility Start: 09-05-2022 End: 06-19-2023 Tobacco smoking status NHIS Ex-smoker [facility] End: 08-22-1979 History of tobacco use Current smoker [facility] End: 08-22-1979 History of tobacco use Cigarette Smoker [facility] Start: 1950 Sex Assigned At Female [facility] Start: 09-04-2023 End: 05-15-[address] [facility] Start: 09-04-2023 End: 05-15-[address] [facility] Adult Depression Screening Assessment 0 [facility] Start: 08-29-2022 Gender identity Identifies as female gender (finding) [facility] Start: 08-29-2022 Sexual orientation Heterosexual (finding) [facility] Start: 11-15-2023 End: 05-14-2024 Alcohol intake Current drinker of alcohol (finding) [facility] Start: 11-15-[address] [facility] Start: 05-08-2023 Tobacco smoking status WYIS Never smoked tobacco [facility] Start: 05-08-2023 End: 05-14-2024 Tobacco use and exposure Smokeless tobacco non-user [facility] Start: 1950 Sex assigned at Not on file [facility] Start: 05-14-2024 Alcohol Comment social [facility] Start: 05-14-2024 Sex Female (finding) [facility] Medical Equipment Procedure Code Equipment Code Equipment Origin al Text Equipment Identifier Dates Graft Infuse 14m m Small Bovine Collagen Rhbmp-2 23mm Bone Absorbable Sponge - [id number] Start: 12-15-2023 Substitute Mastergraft Calcium Phosphate Collagen Bone Graft Void Filler - [id number] Start: 12-15-2023 Felicia Spacer 8-15 mm 20mm X 55mm 6deg [id number] Start: 12-15-2023 Self Drilling Sc rew Variable Angle 5.5mm 40mm [id number] Start: 12-15-2023 Clinical Notes 07-19-2022 to 06-17-2024 Eula Castillo, SEWING MACHINE OPERATOR PAPER BAGS - 06/17/2024 9:30 AM Felisha Castillo, SEWING MACHINE OPERATOR PAPER BAGS - 05/22/2024 9:00 AM ESTTelephone Encounter - Brody Castro, SEWING MACHINE OPERATOR PAPER BAGS - 05/14/2024 12:23 PM ESTCharleskortney Arash FarmerAngela, DO - 05/14/2024 9:00 AM EST Note Date & Type Note Facility 06-17-2024 History of [facility] illness Narrative Images from the original note [...] supplier standards were given to the patient. [employer] patient agreement was completed at time of [...] us. F/U prn documented in this encounter [facility] 05-22-2024 History of Presen t illness Narrative [...] in 4 weeks documented in this encounter [facility] 05-14-2024 Telephone encounter Note Post op pain rx. PDMP reviewed [facility] 05-14-2024 Miscellaneous Notes Post op pain rx. PDMP reviewed documented in this encounter [facility] 05-14-2024 Nurse Note Preoperative Education Checklist- General Surgery date: 05/15/24 Surgery time: 1015a Arrival time: 815a 1. Bring a photo ID and your insurance card with you the day of surgery. You will check in at the main lobby of the [facility]- registration desk is straight ahead as soon as you walk in. Tell them you are here for surgery. 2. If you have a Living Will/Durable Power of Animal Geneticist for Health Care that is not on [...] after you have bathed. 5. NO nail british virgin islander/acrylic on at least one finger. If you are having a hand, wrist or foot surgery then all nail british virgin islander and artificial/acrylic nails must be removed from [...] please call the Preadmission Testing office at [phone], Mon.-Fri. 7 a.m.-3 p.m. Leave a voicemail if needed. Pre-Surgery Instructions: Medication Instructions amLODIPine (NORVASC) 5 mg tablet Take morning of procedure olmesartan (BENICAR) 20 mg tablet Stop taking 0 days prior to procedure ibuprofen (MOTRIN) 400 mg tablet Stop now twrnuemz-jmmk-GH-calcium &mins (THERAGRAN-M) 9 mg iron-400 mcg tablet Stop taking 0 days prior to procedure [facility] 05-14-2024 Miscellaneous Notes Preoperative Education Checklist- General Surgery date: 05/15/24 Surgery time: 1015a Arrival time: 815a 1. Bring a photo ID and your insurance card with you the day of surgery. You will check in at the main lobby of the [facility]- registration desk is straight ahead as soon as you walk in. Tell them you are here for surgery. 2. If you have a Living Will/Durable Power of Animal Geneticist for Health Care that is not on [...] after you have bathed. 5. NO nail british virgin islander/acrylic on at least one finger. If you are having a hand, wrist or foot surgery then all nail british virgin islander and artificial/acrylic nails must be removed from [...] please call the Preadmission Testing office at [phone], Mon.-Fri. 7 a.m.-3 p.m. Leave a voicemail if needed. Pre-Surgery Instructions: Medication Instructions amLODIPine (NORVASC) 5 mg tablet Take morning of procedure olmesartan (BENICAR) 20 mg tablet Stop taking 0 days prior to procedure ibuprofen (MOTRIN) 400 mg tablet Stop now bnfdlfel-votq-MB-calcium &mins (THERAGRAN-M) 9 mg iron-400 mcg tablet Stop taking 0 days prior to procedure documented in this encounter [facility] 05-14-2024 History of Presen t illness Narrative [...] For Her 50+) tablet as directed Orally olmesartan (BENIcar) 20 MG tablet Take 20 mg by mouth in the morning. [DISCONTINUED] baclofen (Lioresal) 10 MG tablet TAKE 1/2 TABLET BY MOUTH EVERY MORNING AND AFTERNOON AND 1 TO 2 TABLETS AT BEDTIME No current facility-administered medications on file prior to visit. MEDICAL HISTORY: Past Medical History: Diagnosis Date Dry eyes April 2024 GERD (gastroesophageal reflux disease) Hepatitis HTN (hypertension) (CMS/HCC) Hyperlipidemia (CMS/HCC) ALLERGIES: No Known Allergies VITALS: Visit Vitals [...] Comments denies dribbling. Incontinence denies. Musculoskeletal: CommentsSee [facility] for details. Skin: Rash denies. Neurologic: [...] Miller/sukhdev Miller D.O. documented in this encounter [facility] 05-13-2024 History of Presen t illness Narrative [...] discuss surgical intervention. documented in this encounter [facility] 01-24-2024 History of Presen t illness Narrative SPINE SURGERY FOLLOW UP This is a virtual visit using [employer] Video Visit. It required patient-provider interaction for the medical decision making as documented below. I have communicated my name and active licensure. The patient's identity and physical location were verified at the time of this visit. Either the patient or their legal sales representative jewelry has been informed of the risks and [...] visit. Either the patient or their legal sales representative jewelry has been informed of the risks and [...] 8:43 AM PAGER: documented in this encounter [facility] 01-24-2024 Note HNO ID: [id number] Author: JORGE DESAI MD Service: ? Author Type: Physician Type: Progress Notes Filed: 01/24/2024 18:28 Note Text: SPINE SURGERY FOLLOW UP This is a virtual visit using [employer] Zoom Video Visit. It required patient-provider interaction for the medical decision making as documented below. I have communicated my name and active licensure. The patient's identity and physical location were verified at the time of this visit. Either the patient or their legal sales representative jewelry has been informed of the risks and [...] visit. Either the patient or their legal sales representative jewelry has been informed of the risks and [...] January 24, 2024 TIME: 8:43 AM PAGER: [facility] 01-24-2024 Telephone encounter Note Signed form faxed to number requested. Faxed verification received. [facility] 01-24-2024 Miscellaneous Notes Signed form faxed to number requested. Faxed verification received. Printed for review and signature. [facility] Progress Note scanned to [facility] for review and signature documented in this encounter [facility] 01-23-2024 Telephone encounter Note Printed for review and signature. [facility] 01-23-2024 Telephone encounter Note [facility] Progress Note scanned to [facility] for review and signature [facility] 01-15-2024 Note HNO ID: [id number] Author: MELONIE GRANADO RT(R) Service: ? Author [...] PATIENT PRESENTS WITH AN IMPLANTABLE OR ATTACHED RECYCLING PROGRAM MANAGER: No RADIOLOGY DEPARTMENT: General X-ray: Exam(s) Completed: Spine X-Ray(s): Lumbar AP / LAT / L5-S1 PERIPHERAL IV DATA: Not applicable SIGNED BY: RT Tom(R) January 15, 2024 10:42 AM [facility] 01-15-2024 History of Presen t illness Narrative [...] PATIENT PRESENTS WITH AN IMPLANTABLE OR ATTACHED RECYCLING PROGRAM MANAGER: No RADIOLOGY DEPARTMENT: General X-ray: Exam(s) Completed: Spine X-Ray(s): Lumbar AP / LAT / L5-S1 PERIPHERAL IV DATA: Not applicable SIGNED BY: RT Tom(R) January 15, 2024 10:42 AM documented in this encounter [facility] 12-28-2023 Note HNO ID: [id number] Author: LITZY TODD APRN.RUBBER GOODS INSPECTOR Service: ? Author Type: Nurse Practitioner Type: [...] which included preparing to see the patient, exya-cn-ajll patient care, completing clinical documentation, obtaining and/or reviewing separately obtained history, performing a medically appropriate examination, counseling and educating the patient/family/caregiver, and ordering medications, tests, or procedures. SIGNATURE: Litzy Todd APRN.DONTE PATIENT NAME: Christian Noyola DATE: December 28, 2023 TIME: 12:52 PM PAGER: [facility] 12-28-2023 History of Presen t illness [...] which included preparing to see the patient, qtuv-rg-gwym patient care, completing clinical documentation, obtaining and/or reviewing separately obtained history, performing a medically appropriate examination, counseling and educating the patient/family/caregiver, and ordering medications, tests, or procedures. SIGNATURE: Litzy Todd APRN.CNP PATIENT NAME: Christian Noyola DATE: December 28, 2023 TIME: 12:52 PM PAGER: documented in this encounter [facility] 12-18-2023 Telephone encounter Note Called patient. Patient reported a 101 degree fever with chills, Saturday 12/16. Patient reports that Today she feels better and has no fever. Patient denies any redness, swelling, or drainage with her incision. Patient instructed to call us back with any changes or If her fever/ chills return. [facility] 12-18-2023 Miscellaneous Notes Called patient. [...] Please call and advise Pt phone # [phone] documented in this encounter [facility] 12-18-2023 Telephone encounter Note Pt phoned reporting fever with chills on Saturday 12/16 post op. Surgery was Thursday 12/14. Please call and advise Pt phone # [phone] [facility] 12-16-2023 Note HNO ID: [id number] Author: MAURIZIO FITCH RN Service: Nursing Author Type: Registered Nurse Type: Progress Notes Filed: 12/16/2023 15:19 Note Text: Pt dc home with daughter , all needs met questions [facility] Note HNO ID: [id number] Author: LUCIANO BOSCH MD Service: General Internal [...] DATE: December 16, 2023 TIME: 11:48 AM [facility] 12-16-2023 Note HNO ID: [id number] Author: NOTE, INTERFACE, ? Service: ? Author Type: ? Type: Progress Notes Filed: 12/16/2023 03:26 Note Text: Epic Scheduled Downtime: 12/16/2023 1:00:00 AM to 12/16/2023 3:02:00 AM [facility] 12-15-2023 Note HNO ID: [id number] Author: NILDA BORGES APRN.GAS STATION SUPERVISOR Service: ? Author Type: Nurse Investment Analyst Type: Anesthesia Procedure Notes Filed: 12/15/2023 11:39 Note Text: ANESTHESIOLOGY PROCEDURE NOTE Airway General Information Procedure Start Time/Medication Administration: 12/15/2023 11:27 AM Procedure End Time: 12/15/2023 11:27 AM Patient location during procedure: OR Staffing GAS STATION SUPERVISOR: Nilda Borges APRN.GAS STATION SUPERVISOR Performed by: GAS STATION SUPERVISOR Indications and Patient Condition Indications for airway [...] 1 Airway not difficult SIGNATURE: Nilda Borges APRN.CRNA PATIENT NAME: Christian Noyola DATE: December 15, 2023 TIME: 11:39 AM CSN: [id number] [facility] 12-05-2023 Telephone encounter Note Spoke with patient and answered questions. Patient also needs a refill of gabapentin. Confirmed pharmacy. [facility] 12-05-2023 Miscellaneous Notes Spoke with patient and answered questions. Patient also needs a refill of gabapentin. Confirmed pharmacy. Patient would like to speak to the nurse regarding her medications before her surgery on December 14. She can be reached at [phone] [address] this encounter [facility] 12-05-2023 Telephone encounter Note Patient would like to speak to the nurse regarding her medications before her surgery on December 14. She can be reached at [phone] [facility] 11-15-2023 Instructions Georgette Santos APRN.RUBBER GOODS INSPECTOR - 11/15/2023 1:10 PM EDT PATIENT PREOPERATIVE INSTRUCTIONS Jorge Desai MD has scheduled you for your procedure at this surgery center: [facility]: [phone] --[address] [place] [address]. On your scheduled day of surgery, please [...] Procedures: - YOU MUST HAVE A RESPONSIBLE ENGRAVER LETTER TAKE YOU HOME. A METAL ORGAN PIPE MAKER OR LABORER WOOD PRESERVING PLANT CANNOT BE MADE A RESPONSIBLE ENGRAVER LETTER. - We recommend that a responsible person [...] Advance Directive, please fax a copy to [phone] or email to for it to be [...] Georgette Santos APRN.DONTE documented in this encounter [facility] 11-15-2023 History and physical note [...] 35 kg/m^2 Non-male patient STOP-Bang Score: 3 [id number] Score: Age: 65-74 Sex: female CHF history: No Hypertension history: Yes Stroke/TIA/thromboembolism history: No Vascular disease history: No Diabetes history: No [id number] Score: 3 ARISCAT Score: Age: 51-80 Preoperative [...] fevers. Neuro: No history of TIA's, stroke, DATA MANAGEMENT CONSULTANT tumor, impaired sensorium, hemiplegia, paraplegia or quadraplegia. No neurological symptoms or problems. Respiratory: No history of current cough or dyspnea, or pneumonia in the past 6 weeks. No history of respiratory/pulmonary symptoms or problems. Cardiovascular: Positive for: Hypertension no history of angina, CHF, NH, cardiac surgery or stents. Denies rest pain, gangrene or revascularization/amputation for PVD GI: No history of GI symptoms or problems. No history of esophageal varices, recent ascites, or ETOH greater than 2 drinks per day. : No history of dysuria, frequency or incontinence,, stones or chronic kidney disease, No difficulty urinating, nocturia > 1 time per night or hematuria JUNIOR PROGRAMMER: Negative for abnormal vaginal bleeding, abnormal vaginal [...] Christian Noyola DATE: 11/15/2023 TIME: 1:[address] [facility] 11-15-2023 History and physical note [...] 35 kg/m^2 Non-male patient STOP-Bang Score: 3 [id number] Score: Age: 65-74 Sex: female CHF history: No Hypertension history: Yes Stroke/TIA/thromboembolism history: No Vascular disease history: No Diabetes history: No [id number] Score: 3 ARISCAT Score: Age: 51-80 Preoperative [...] fevers. Neuro: No history of TIA's, stroke, DATA MANAGEMENT CONSULTANT tumor, impaired sensorium, hemiplegia, paraplegia or quadraplegia. No neurological symptoms or problems. Respiratory: No history of current cough or dyspnea, or pneumonia in the past 6 weeks. No history of respiratory/pulmonary symptoms or problems. Cardiovascular: Positive for: Hypertension no history of angina, CHF, NH, cardiac surgery or stents. Denies rest pain, gangrene or revascularization/amputation for PVD GI: No history of GI symptoms or problems. No history of esophageal varices, recent ascites, or ETOH greater than 2 drinks per day. : No history of dysuria, frequency or incontinence,, stones or chronic kidney disease, No difficulty urinating, nocturia > 1 time per night or hematuria JUNIOR PROGRAMMER: Negative for abnormal vaginal bleeding, abnormal vaginal [...] TIME: 1:27 PM documented in this encounter [facility] 09-05-2023 Miscellaneous Notes Surgery date moved to 12/15/23. Patient called to speak with Dr Desai's nurse. She would like to accept a surgery date of MondayDecember 14. She will wait for it to show up on her MyChart. documented in this encounter [facility] 09-04-2023 Note HNO ID: [id number] Author: JORGE DESAI MD Service: ? Author [...] of the proc (more content not included)... [facility] 06-19-2023 Evaluation note Encounter Date Diagnosis [...] ARB and increase Amlodipine to 5mg bid [facility] Other 11-09-2023 Evaluation note* Encounter Date Diagnosis Assessment Notes Treatment Notes Treatment Clinical Notes May, Primary hypertension (ICD-10 - I10) [facility] Other 11-02-2023 Evaluation note* Encounter Date Diagnosis [...] and applesauce. Stool softener and Miralax optional [facility] 09-12-2023 Evaluation note* Encounter Date Diagnosis Assessment Notes Treatment Notes Treatment Clinical Notes Mar, Primary hypertension (ICD-10 - I10) [facility] 08-13-2023 Evaluation note* Encounter Date Diagnosis Assessment Notes Treatment Notes Treatment Clinical Notes Feb, Primary hypertension (ICD-10 - I10) [facility] 08-03-2023 Evaluation note* Encounter Date Diagnosis Assessment Notes Treatment Notes Treatment Clinical Notes Feb, Primary hypertension (ICD-10 - I10) [facility] 05-30-2023 NoteCONSULTATION CONSULTATION DATE: 12/06/2022 TO: Jordan Avitia D.O. CHIEF COMPLAINT: Includes bilateral lower back [...] our patients to inform us about any kqas-dij-gbcvmvj medications or herbal remedies/nutritional supplements/alternative remedies. 2. [...] treatment options with their primary care provider.[id number] Note CONSULTATION CONSULTATION DATE: 11/03/2022 TO: Jordan [...] our patients to inform us about any evoc-mxq-utmkixt medications or herbal remedies/nutritional supplements/alternative remedies. 2. [...] treatment options with their primary care provider.[id number] Note CONSULTATION CONSULTATION DATE: 10/06/2022 TO: Jordan [...] regimen of Neurontin 300 mg b.i. d.[facility] [id number] Miscellaneous Notes* Telephone Encounter - Debbi Brizuela RN - 09/09/2022 2:52 PM EST Will forward for review. Scan on 09/08/2022 2:37 PM by External Provider: Spine Injection * Telephone Encounter - Tanya Navarro - 09/09/2022 2:44 PM EST Received spine injection report by fax. Scanned to patient's chart for provider review. [facility] NoteCONSULTATION CONSULTATION DATE: 09/08/2022 HISTORY: This is a very pleasant, 72-year-old female who returns to the clinic, status post lumbar epidural steroid injection completed on 08/02/2022. The patient states she received 25% relief for 2-3 weeks. Patient was seen by Dr. Desai at the [facility] Neurosurgery. The patient does have [...] care will be established at that time.[facility] 09-05-2022 History of Present illness Narrative* [...] 2022 at 1:23 PM. [facility] NoteCONSULTATION CONSULTATION DATE: 07/19/2022 HISTORY [...] The patient is hoping to go to [place] in a few weeks. We have also strongly recommended to the patient for a neurosurgical consult, given the multiple levels the patient has pathology. I believe the surgical consult will also help define for the patient progression components. In the interim, the patient will also continue with extension exercises. The patient understands and would like to proceed. CC: Jordan Avitia D.O.[facility] note* Diagnosis Degenerative scoliosis- Primary documented in this encounter [facility] noteNo [facility] Other Evaluation note* Diagnosis Pre-op testing- Primary Preoperative examination, unspecified Spinal stenosis, lumbar region with neurogenic claudication documented in this encounter [facility] note* Diagnosis Pre-op evaluation- Primary Preoperative examination, [...] morning of surgery documented in this encounter [facility] note* Diagnosis S/P lumbar fusion- Primary Arthrodesis status documented in this encounter [facility] note* Diagnosis S/P lumbar fusion Arthrodesis status documented in this encounter [facility] note* Diagnosis Lumbar stenosis with neurogenic claudication- Primary Spinal stenosis, lumbar region, with neurogenic claudication documented in this encounter [facility] note* Diagnosis Onset Date Resolution Status GERD (gastroesophageal reflux disease) acute Hypercholesterolemia acute Hypertension acute Lumbar spondylosis acute Multiple sclerosis acute Medicare annual wellness visit, subsequent noneactive Screening mammogram for breast cancer noneactive [facility] Work Phone: Evaluation note* Diagnosis Onset Date Resolution Status GERD (gastroesophageal reflux disease) acute Hypercholesterolemia acute Hypertension acute Lumbar spondylosis acute Medicare annual wellness visit, subsequent noneactive Screening mammogram for breast cancer noneactive [facility] Work Phone: Evaluation note* Diagnosis Onset Date Resolution Status GERD (gastroesophageal reflux disease) acute Hypercholesterolemia acute Hypertension acute Lumbar spondylosis acute Medicare annual wellness visit, subsequent noneactive Screening mammogram for breast cancer noneactive IFG (impaired fasting glucose) acute Trigger finger acute [facility] Work Phone: Evaluation note* Diagnosis Pain of right thumb- Primary Trigger finger of right thumb documented in this encounter [facility] Healthcare[facility]* Diagnosis Pain of right thumb- Primary Trigger finger of right thumb documented in this encounter [facility] HealthcareEvaluation note* Diagnosis Trigger finger of right thumb- Primary documented in this encounter [facility] HealthcareEvaluation note* Diagnosis S/P trigger finger release- Primary documented in this encounter [facility] Healthcare[facility] note* Diagnosis S/P trigger finger release- Primary Carpal tunnel syndrome of right wrist documented in this encounter [facility] HealthcareEvaluation note* Diagnosis Onset Date Resolution Status Admit Date Abdominal pain acute February 1:41pm Abnormal CT scan, pelvis acute February 11, 2025 1:41pm GERD (gastroesophageal reflu x disease) acute February 11, 2025 1:41pm Hypercholesterolemia acute Augu 2024 1:41pm Hypertension acute February 11, 2025 1:41pm IFG (impaired fasting glucose) acute February 11, 2025 1:41pm Lumbar spondylosis acute February 11, 2025 1:41pm Medicare annual wellness vis it, subsequent noneactive February 11, 2025 1:41pm [facility] Work Phone: History general Narrative - Reported* [...] x's 2 Hospitalization History SEE SURGICAL HX [facility] Other Hospital Discharge instructionsAmbulatory Orders* Referral to Orthopedic Surgery Location: None Selected [facility] Work Phone: InstructionsNot on filedocumented in this encounter [facility] Outpatient Procedure (Routine) - Pending Review Specialty Diagnoses / Procedures Referred By Paco ward Referred To Contact [facility] Diagnoses Pre-op evaluation Pre-op testing Procedures ECG COMPLETE ECG ROUTINE ECG W/LEAST 12 LDS W/I&R Georgette Santos APRN.RUBBER GOODS INSPECTOR [address] [place] [address] [facility] [address] [place] [address] Referral ID Status Reason Start Date Expiration Date Visits Requested Visits Authorized [id number] Pending Review Auto-Generat ed Referral 11/15/2023 11/14/2024 1 1 [facility] for [facility] (narrative)* Diagnostic Procedure Only (Routine) - Pending Review Specialty Diagnoses / Procedures Referred By Rafyac t Referred To Contact XR IMAGING Diagnoses S/P lumbar fusion Procedures XR LUMBAR LIMITED 2V AP/LAT RADEX SPINE LUMBOSACRAL 2/3 VIEWS Litzy Todd VALUE ANALYST.RUBBER GOODS INSPECTOR [address] [place] [address] [place] [address] Referral ID Status Reason Start Date Expiration Date Visits Requested Visits Authorized [id number] Pending Review Auto-Generat ed Referral 12/28/2023 01/26/2025 1 1 * Physical Therapy (Routine) - Authorized Specialty Diagnoses / Procedures Referred By Contac t Referred To Contact [facility] Diagnoses S/P lumbar fusion Procedures CONSULT TO PHYSICAL THERAPY PHYSICAL THERAPY EVALUATION HIGH COMPLEX 45 MINS Litzy Todd, VALUE ANALYST.RUBBER GOODS INSPECTOR [address] [place] [address] [facility] [address] [address] Referral ID Status Reason Start Date Expiration Date Visits Requested Visits Authorized [id number] Authorized PCP Requested Referral Auto-Generate d Referral 12/28/2023 12/27/2024 99 99 [facility] for referral (narrative)* Diagnostic Procedure Only (Routine) - Closed Specialty Diagnoses / Procedures Referred By Contac t Referred To Contact XR IMAGING Diagnoses S/P lumbar fusion Procedures XR LUMBAR LIMITED 2V AP/LAT RADEX SPINE LUMBOSACRAL 2/3 VIEWS Litzy Todd, VALUE ANALYST.RUBBER GOODS INSPECTOR [phone] [place] [address] Referral ID Status Reason Start Date Expiration Date V isits Requested Visits Authorized [id number] Closed Auto-Generate d Referral 12/28/2023 01/26/2025 1 1 [facility] (narrative)No reason for referral information available[facility] Work Phone: Reason for visit Narrative* Diagnostic Procedure Only (Routine) - Closed Specialty Diagnoses / Procedures Referred By Contac t Referred To Contact XR IMAGING Diagnoses S/P lumbar fusion Procedures XR LUMBAR LIMITED 2V AP/LAT RADEX SPINE LUMBOSACRAL 2/3 VIEWS Litzy Todd, VALUE ANALYST.RUBBER GOODS INSPECTOR [phone] [place] [address] Referral ID Status Reason Start Date Expiration Date V isits Requested Visits Authorized [id number] Closed Auto-Generate d Referral 12/28/2023 01/26/[address] [facility] Summary Purpose Family History Relationship Condition Age at Onset Recorded Date/T flora father Unknown Diabetes mellitus Unknown Malignant neoplasm Unknown father Malignant neoplasm Unknown mother Unknown Heart disease Unknown Hypertension Unknown Advance Directives Documents on File Type Date Recorded Patient Engine Monitor Expl anation Advance Directive(s) 12/15/2023 7:18 AM Documents on File Type Date Recorded Patient Engine Monitor Expl anation Advance Directive(s) 12/15/2023 7:18 AM Advance Directive Response Recorded Date/ Time Advance Directives No February 07 10:53am Reason for Referral Specialty Diagnoses / Procedures Referred By Contac t Referred To Contact Diagnoses Pre-op testing Procedures REFER TO PACC - PRE ANESTHESIA CONSULTATION CLINIC OFFICE/OUTPATIENT NEW HIGH MDM 60 MINUTES Jodi Vega PA-C [id number] [place] [address] Referral ID Status Reason Start Date Expiration Date Visits Requested Visits Authorized [id number] Authorized PCP Requested Referral 09/05/2023 09/04/2024 1 [...] cancer IFG (impaired fasting glucose) Trigger finger Chief Complaint Admit Date Wellness February 11, 2025 1:4 1pm Reason for Visit Admit Date Abdominal pain February 11, 2025 1:[address] scan, pelvis February 11 1:41pm GERD (gastroesophageal reflux disease) A ug2024 1:41pm Hypercholesterolemia February 11, 2025 1: 41pm Hypertension February 11, 2025 1:4 1pm IFG (impaired fasting glucose) February 1:41pm Lumbar spondylosis February 11, 2025 1:4 1pm Medicare annual wellness visit, subseque nt February 11, 2025 1:41pm Additional Source Comments INFORMATION SOURCE (unrecogn ized section and content) DATE CREATED AUTHOR 08/26/2021 [facility] DATE CREATED AUTHOR AUTHOR'S ORGANIZ ATION 12/16/2022 [facility] DATE CREATED AUTHOR AUTHOR'S ORGANIZ ATION 02/28/2023 [facility] DATE CREATED AUTHOR AUTHOR'S ORGANIZ ATION 12/18/2023 [facility] DATE CREATED AUTHOR AUTHOR'S ORGANIZ ATION 01/16/2024 [facility] DATE CREATED AUTHOR AUTHOR'S ORGANIZ ATION 01/28/2024 [facility] DATE CREATED AUTHOR AUTHOR'S ORGANIZ ATION 05/16/2024 [facility] DATE CREATED AUTHOR AUTHOR'S ORGANIZ ATION 06/20/2024 [facility] EPIC Source Comments (unrecognize d section and content) In the event this informatio n is protected by the Federal Confidentiality of Alcohol and Drug Abuse Patient Records regulations: The Federal rules restrict any use of the information to criminally investigate or prosecute any alcohol or drug abuse patient.[facility] Center[facility] the event this information is protected by the Federal Confidentiality of Alcohol and Drug Abuse Patient Records regulations: The Federal rules restrict any use of the information to criminally investigate or prosecute any alcohol or drug abuse patient.[facility] CenterIn the event this information is protected by the Federal Confidentiality of Alcohol and Drug Abuse Patient Records regulations: The Federal rules restrict any use of the information to criminally investigate or prosecute any alcohol or drug abuse patient.[facility] CenterIn the event this information is protected by the Federal Confidentiality of Alcohol and Drug Abuse Patient Records regulations: The Federal rules restrict any use of the information to criminally investigate or prosecute any alcohol or drug abuse patient.[facility] CenterIn the event this information is protected by the Federal Confidentiality of Alcohol and Drug Abuse Patient Records regulations: The Federal rules restrict any use of the information to criminally investigate or prosecute any alcohol or drug abuse patient.[facility] CenterIn the event this information is protected by the Federal Confidentiality of Alcohol and Drug Abuse Patient Records regulations: The Federal rules restrict any use of the information to criminally investigate or prosecute any alcohol or drug abuse patient.[facility] CenterIn the event this information is protected by the Federal Confidentiality of Alcohol and Drug Abuse Patient Records regulations: The Federal rules restrict any use of the information to criminally investigate or prosecute any alcohol or drug abuse patient.[facility] CenterIn the event this information is protected by the Federal Confidentiality of Alcohol and Drug Abuse Patient Records regulations: The Federal rules restrict any use of the information to criminally investigate or prosecute any alcohol or drug abuse patient.[facility] CenterIn the event this information is protected by the Federal Confidentiality of Alcohol and Drug Abuse Patient Records regulations: The Federal rules restrict any use of the information to criminally investigate or prosecute any alcohol or drug abuse patient.[facility] CenterIn the event this information is protected by the Federal Confidentiality of Alcohol and Drug Abuse Patient Records regulations: The Federal rules restrict any use of the information to criminally investigate or prosecute any alcohol or drug abuse patient.[facility] CenterIn the event this information is protected by the Federal Confidentiality of Alcohol and Drug Abuse Patient Records regulations: The Federal rules restrict any use of the information to criminally investigate or prosecute any alcohol or drug abuse patient.[facility] CenterIn the event this information is protected by the Federal Confidentiality of Alcohol and Drug Abuse Patient Records regulations: The Federal rules restrict any use of the information to criminally investigate or prosecute any alcohol or drug abuse patient.[facility] Reason for Visit (unrecogniz ed section and content) Reason Comments New Reason Comments Received Outside Medical Records Reason Comments Surgery Date Specialty Diagnoses / Procedures Referred By Contac t Referred To Contact Diagnoses Pre-op testing Procedures REFER TO PACC - PRE ANESTHESIA CONSULTATION CLINIC OFFICE/OUTPATIENT NEW HIGH MDM 60 MINUTES Jodi Vega PA-C [address] [place] [address] Referral ID Status Reason Start Date Expiration Date V isits Requested Visits Authorized [id number] Closed PCP Requested Referral 09/05/2023 09/04/2024 1 1 Reason Comments Post Op Reason Comments Radiology XR Reason Comments Melt House Supervisor - Other Reason Comments Follow Up Reason Comments Fever Reason Comments Pain Care Teams (unrecognized sec tion and content) Team Status: Active Member Role Status Dates Jordan Avitia DO Primary Care Provider Active Team Status: [...] May 07, 2024 End: May 07, 2024 Packing Supervisor Relationship Specialty Start Date End Date Jordan Avitia MD [address] [place] [phone] PCP - General Internal Medicine 05/08/23 Packing Supervisor Relationship Specialty Start Date End Date Jordan Avitia MD [address] [place] [phone] PCP - General Internal Medicine 05/08/23 Packing Supervisor Relationship Specialty Start Date End Date Jordan Avitia MD [address] [place] [facility] [phone] PCP - General Internal Medicine 05/08/23 Packing Supervisor Relationship Specialty Start Date End Date Jordan Avitia MD [address] [facility] [address] PCP - General Internal Medicine 05/08/23 Packing Supervisor Relationship Specialty Start Date End Date Jordan Avitia MD [address] [facility] [address] PCP - General Internal Medicine 05/08/23 Packing Supervisor Relationship Specialty Start Date End Date Jordan Avitia MD [address] [facility], [phone] PCP - General Internal Medicine 05/08/23 Packing Supervisor Relationship Specialty Start Date End Date Jordan Avitia MD [address] [place] [facility] [address] PCP - General Internal Medicine 05/08/23 Packing Supervisor Relationship Specialty Start Date End Date Jordan Avitia DO [address] [phone] PCP - General Internal Medicine 05/14/24 Team Status: Inactive Member Role Status Dates Jordan Avitia DO Primary Care Provider Active Start: February 11, 2025 End: February 11, 2025 Jordan Avitia DO Attending Provider Active Sta rt: February 11, 2025 End: February 11, 2025 Goals (unrecognized section and content) Goals may [...] BE BASED ON THE PRIMARY CLINICAL RECORDS. [facility] [employer] [facility]. provides no warranty or guarantee of the accuracy or completeness of information in this document.
[2025-02-15 09:46] LABS: Hematocrit 41.5 % (36.0-48.0); Hemoglobin 14.2 g/dL (12.0-16.0); Immature Granulocytes Abs Auto 0.01 10^3/uL (0.00-0.03); Immature Granulocytes Pct Auto 0.2 % (0.0-0.5); Lymphocytes Absolute Auto 1.2 10^3/uL (1.2-3.8); Mean Corpuscular HGB Conc 34.2 g/dL (29.9-35.2); Mean Corpuscular Hemoglobin 31.6 pg (26.7-34.0); Mean Corpuscular Volume 92.4 fL (81.0-99.0); Platelet Count 163 10^3/uL (150-450); Red Blood Count 4.49 10^6/uL (4.20-5.40); White Blood Count 4.6 10^3/uL (4.0-11.0)
[2025-02-15 10:10] LABS: Alanine Aminotransferase 65 U/L (14-59); Albumin Globulin Ratio 1.0; Albumin Level 4.0 g/dL (3.4-5.0); Alkaline Phosphatase 114 U/L (46-116); Anion Gap 9.4; Aspartate Amino Transferase 42 U/L (15-37); Blood Urea Nitrogen 19.0 mg/dL (7.0-18.0); Calcium 9.3 mg/dL (8.5-10.1); Carbon Dioxide 28.1 mmol/L (21.0-32.0); Chloride 104 mmol/L (98-107); Cholesterol 311 mg/dL (<=200); Estimated GFR (African America 57 (>=60 mL/min/1.73m^2); Estimated GFR (Non-African Ame 47 (>=60 mL/min/1.73m^2); Globulin 4.0 g/dL; Glucose 108 mg/dL (74-106); HDL Cholesterol 50 mg/dL (40-60); Potassium 4.5 mmol/L (3.5-5.1); Sodium 137 mmol/L (136-145); Total Protein 8.0 g/dL (6.4-8.2); Triglycerides 160 mg/dL (<=150); VLDL CHOLESTEROL 32.0 mg/dL
== END 2025-02-15 08:51 | disposition home or self-care (01) ==
LOC: US 08:54
PROVIDERS: PCP Internal Medicine; Visit Provider Internal Medicine
DX: E78.00 Pure hypercholesterolemia, unspecified (principal); I10 Essential (primary) hypertension; R73.01 Impaired fasting glucose; R10.9 Unspecified abdominal pain; R93.5 Abnormal findings on diagnostic imaging of other abdominal regions, including retroperitoneum
CPT/HCPCS: 36415; 76856; 80053; 80061; 83036; 85025

== ENCOUNTER 2025-05-15 06:33 | Outpatient (OUT) | payer MEDICARE, SELFPAY ==
--- OUTSIDE RECORDS SUMMARY | 2025-05-15 06:36 | XMS_ITS | Encounter Summary ---
Author Organization [facility] Address [address] [place] [place] [address] Care Team Providers Care Amusement Park Worker Name Role Phone Jordan Castillo DO Primary Care Provider [phone] Encounter Details DateTypeDepartmentCare Team (Latest Contact Info)Ehokuvmrqci53/03/2025Travel Social History Tobacco UseTypesPacks/DayYears UsedDateSmoking Tobacco: NeverSmokeless Tobacco: NeverAlcohol UseStandard Drinks/WeekCommentsYes2 (1 standard drink = 0.6 oz pure alcohol)CommentsUnknownSex and Gender InformationValueDate RecordedSex Assigned at BirthNot on fileLegal GgyNachlt26/15/2023 7:21 PM EDTGender Identity Not on fileSexual OrientationNot on filedocumented as of this encounter Plan of Treatment DateTypeDepartmentCare Team (Latest Contact Info)Gnioalgwygv63/10/2025 9:30 AM ESTOffice Visit [facility] [address] [place] [address] Brody Castro NP [address] [place], [place] [phone] documented as of this encounter Visit Diagnoses Not on filedocumented in this encounter Care Teams Team MemberRelationshipSpecialtyStart DateEnd Date Jordan Castillo DO [address] [facility] [place] [address] PCP - GeneralInternal Medicine04/07/25documented as of this encounter
--- OUTSIDE RECORDS SUMMARY | 2025-05-15 06:36 | XMS_ITS | Clinical Summary ---
Author Organization [facility] Address [facility] [place] [address] Care Team Providers Care Lion Hunter Name Role Phone Unavailable Primary Care Provider Unavailabl e Allergies No known active allergies Medications MedicationSigDispense QuantityRefillsLast FilledStart DateEnd DateStatus MULTI-VITAMIN ORAL Take by mouth once daily.Active amLODIPine (NORVASC) 5 mg tablet TAKE 1 TABLET BY MOUTH ONCE NQVYALIF63/24/2024ctive olmesartan (BENICAR) 20 mg tablet TAKE 1 TABLET BY MOUTH 1 DAILY05/19/2023ctive baclofen 10 mg tablet TAKE 1/2 TAB BY MOUTH EVERY MORNING,1/2 TAB EVERY AFTERNOON,THEN 1 TO 2 TABS EVERY DAY AT BRWYXWQ7807/12/2023ctive gabapentin (NEURONTIN) 300 mg capsule Take 1 capsule by mouth two times a day for 90 days. 60 capsule ctive Active Problems ProblemNoted DateDiagnosed DateObesity, Class I, BMI 30-34.9012/16/2023Spinal stenosis, lumbar region with neurogenic /07/2024S/P lumbar spinal jqqjwt5312/15/2023 Overview (12/15/2023): L3/4 LLIF Primary vkkkhluxznur90/08/2024 Assessment & Plan (11/15/2023 12:41 PM EDT): Assessment: Stable on medication Today To take medication morning of surgery Social History Tobacco UseTypesPacks/DayYears UsedDateSmoking Tobacco: FormerCigarettes0.515 08/22/1964 - 08/22/1979 Tobacco Cessation:Counseling Given: Not Answered Alcohol UseStandard Drinks/WeekCommentsYes0 (1 standard drink = 0.6 oz pure alcohol)special occasionsPHQ-2AnswerDate RecordedPHQ-2 ydhnq4924 CommentsNoSex and Gender InformationValueDate RecordedSex Assigned at Qqigtf1708/29/2022 10:35 AM ESTLegal ZilWipqnz00/02/2012 8:56 AM ESTGender EllijfvcPimuwn97/20/2023 10:35 AM ESTSexual BnugsbfoslrRploslil95/20/2023 10:35 AM EST Last Filed Vital Signs Vital SignReadingTime TakenCommentsBlood Bgmrukri481/64012/28/2023 12:42 PM EDT Egbhd375612/28/2023 12:42 PM LLJUipwxilrofo45.9 ??C (98.4 ??F)12/16/2023 11:48 AM EDTRespiratory Ciny494512/16/2023 7:44 AM EDTOxygen Lyqkuqbpxa15%12/28/2023 12:42 PM EDTInhaled Oxygen Concentration--Cvnvaj40.3 kg (192 lb 6.4 oz)12/28/2023 12:42 PM SWEFceqjj613.6 cm (5' 4 )12/28/2023 12:42 PM EDTBody Mass Index33.03 12/28/2023 12:42 PM EDT Plan of Treatment Health MaintenanceDue DateLast DoneCommentsAnnual PCP Team Chronic Disease Visit 1968Anxiety Kpchjauvt75/31/1968Depression Bewluuczq14/31/1968Hepatitis C Adokrkxtd46/31/1968Mammogram Xdemxmvin22/31/1990CT Homdnlacofqa18/31/1995 Ewoxodqofkx82/31/1995Fecal Occult Blood1995Lipid Zyqxumpja99/31/1995 Pbwmytibzlcyh20/31/1995DTaP,Tdap,Td Vaccine (1 - Tdap) Medicare Annual Wellness Visit06/09/2015Bone Density Onatitczh34/31/2015 Pneumococcal Vaccine: 50+ (3 of 3 - PCV20 or PCV21), 04/10/2015, 10/11/2013dvance Directive Ltfshkboqs44/01/2025Covid-19 Vaccine ( season), 11/04/2022, 04/25/2022, Additional history existsInfluenza Vaccine (#1)/, 04/25/2022, 05/08/2021, Additional history existsRSV Vaccine (1 - 1-dose 75+ series) 5Cologuard (FIT-DNA), 08/28/2019Colorectal Cancer Flgchvezi77/07/2026Diabetes Kwffmpxlm14, 11/15/2023Shingrix HubnivmBqrwsuoru15/09/2024, 06/06/2023 Medical Devices ImplantedTypeAreaManufacturerDevice IdentifierShelf Expiration DateModel / Serial / LotGraft Infuse 14mm Small Bovine Collagen Rhbmp-2 23mm Bone Absorbable Sponge - [id number] Implanted:Qty: 1 on 12/15/2023 [facility] N/A: BackMEDTRONIC SOFOR [id number] / / [id number] Mastergraft Calcium Phosphate Collagen Bone Graft Void Filler - [id number] Implanted:Qty: 1 on 12/15/2023 by [facility]Cement / PuttyN/A: BackMEDTRONIC SOFAMOR DANEK09/[id number] / / [id number] Spacer 8-15mm 20mm X 55mm 6deg Implanted:Qty: 1 on 12[facility]15/2023 [facility]N/A: BackGLOBUS [id number] / / Self Drilling Screw Variable Angle 5.5mm 40mm Implanted:Qty: 2 [facility] BackGLOBUS [id number] / / Procedures Procedure NamePriorityDate/TimeAssociated DiagnosisCommentsBASIC METABOLIC PANEL Fglgdee2012/16/2023 5:04 AM EDT from Last 3 Months or Most Recently Relevant to Health Maintenance Results * (ABNORMAL) BASIC METABOLIC PANEL (12/16/2023 5:04 AM EDT)ComponentValueRef RangeTest MethodAnalysis TimePerformed AtPathologist CfikbtxziNdhcoql997(H)74 - 99 mg/dL12/16/2023 7:55 AM EDTLUTHERAN LABORATORYComment: The [place] Diabetes Association (ADA) provides guidance for cutoff values for fasting glucose andrandom glucose. The ADA defines fasting as no [...] Standards of Medical Care in Diabetes 2016, [place] Diabetes Association. Diabetes Care. 2016.39(Suppl 1). HBO197 - 21 mg/dL12/16/2023 7:55 AM EDTLUTHERAN LABORATORYCreatinine0.98(H)0.58 - 0.96 mg/dL12/16/2023 7:55 AM EDTLUTHERAN XBIHOBWXETTwcizb180128 - 144 mmol/L 12/16/2023 7:55 AM EDTLUTHERAN LABORATORYPotassium4.33.7 - 5.1 mmol/L12/16/2023 7:55 AM EDTLUTHERAN QVUQITCJWVKiojncbk29386 - 107 mmol/L12/16/2023 7:55 AM EDT [facility] UUGJDZBYYAXT58395 - 30 mmol/L12/16/2023 7:55 AM EDTLUTHERAN LABORATORY Anion Tys494 - 15 mmol/L12/16/2023 7:55 AM EDTLUTHERAN LABORATORYCalcium, Total 9.08.5 - 10.2 mg/dL12/16/2023 7:55 AM EDTLUTHERAN LABORATORYEstimated Glomerular Filtration Rate61>=60 mL/min/1.73m 12/16/2023 7:55 AM EDTLUTHERAN LABORATORYComment:Estimated Glomerular Filtration Rate (eGFR) is calculated using the 2020 CKD-EPI creatinine equation. This equation utilizes serum creatinine, sex, and age as parameters. The creatinine assay has traceable calibration to isotope dilution-mass spectrometry. Refer to KDIGO guidelines for clinical interpretation. In patients with unstable renal function, e.g. those with acute kidney injury, the eGFRmay not accurately reflect actual GFR.Specimen (Source)Anatomical Location / LateralityCollection Method / VolumeCollection TimeReceived TimeBloodBLOOD SPECIMEN / Unknown Venipuncture / Qetxqxr7912/16/2023 5:04 AM EDT12/16/2023 6:33 AM EDT Narrative Authorizing ProviderResult TypeResult StatusKatjen Gordon APRN.CNP LABORATORYFinal ResultPerforming OrganizationAddressCity/State/ZIP CodePhone Number [facility] [address] [place] [address], from Last 3 Months or Most Recently Relevant to Health Maintenance Insurance Advance Directives TypeDate RecordedPatient RepresentativeExplanationAdvance Directive(s)12/15/2023 7:18 AM
--- OUTSIDE RECORDS SUMMARY | 2025-05-15 06:36 | XMS_ITS | Clinical Summary ---
Author Organization [facility] Address [address] [place] [address] Care Team Providers Care Produce Manager Name Role Phone Jordan Castillo DO Primary Care Provider [phone] Allergies No known active allergies Medications MedicationSigDispense QuantityRefillsLast FilledStart DateEnd DateStatus olmesartan (BENIcar) 20 MG tablet Take 20 mg by mouth in the morning.04/20/2023ctive Multiple Vitamins-Minerals (Multi For Her 50+) tablet as directed OrallyActive ibuprofen 200 MG tablet Once02/08/2024ctive amLODIPine (Norvasc) 5 MG tablet Daily09/02/2023ctive Active Problems ProblemNoted DateDiagnosed DateDDD (degenerative disc disease), nzvmhq1605/13/2024 GERD (gastroesophageal reflux disease)05/13/20247983Iowokfhlk97/04/2024Metabolic dysfunction-associated steatotic liver disease (MASLD)05/13/2024 Frtdkfbqxawpfdhvtmsi94/04/2024IFG (impaired fasting glucose)05/13/2024S/P lumbar spinal dgqmbx0712/15/2023 Overview (05/13/2024): L3/4 LLIF Primary mrnoewqmfbfl69/08/2024etinal yksaxcyr18/30/2023PVD (posterior vitreous detachment), right eye05/08/2023 Encounters DateTypeDepartmentCare ZdpeKheeamdrxrq15/03/4981Ghwwxm62/08/2025 10:45 AM EDT Office Visit [facility] [address] [place] [id number] Stepanic, Jr. Walter C, DO Trigger finger of left thumb (Primary Dx); Pain of left thumb04/16/2025amboo flowsheet [facility] [address] [place] [address] Jr. Walter Olguin, 04/16/20255768Rnzbmg73/01/0637Zbjqop73/29/2025 [address] [facility] [address] [place] [address] Ganga Mitchell, PA Thumb pain, left (Primary Dx); Trigger finger of left thumb04/07/2025amboo flowsheet [facility] [address] [place] [address] Ganga Mitchell PA 04/07/20250938Dyhkkt97/23/2025Travelfrom Last 3 Months Immunizations ImmunizationAdministration DatesNext DueInfluenza, High Dose Seasonal, Preservative Free04/01/2024Influenza, Seasonal, Quadrivalent, Adjuvanted 04/04/2023,04/25/2022,05/08/2021Influenza, injectable, quadrivalent, preservative free04/11/2022,04/14/2021,03/03/2020Influenza, live, intranasal, gwhhxicrjzuq30/12/2018Influenza, seasonal, injectable, preservative free 04/10/2015Influenza, trivalent, eahznyujxq86/08/2018Pneumococcal Conjugate PCV 13108/23/2014Pneumococcal Polysaccharide AJBM7631,10/11/2013Td (adult), 5 Lf tetanus toxoid, preservative free, cxgvmaen32/07/2014Zoster, Recombinant 09/16/2023,06/06/2023 Social History Tobacco UseTypesPacks/DayYears UsedDateSmoking Tobacco: NeverSmokeless Tobacco: Never Tobacco Cessation:Counseling Given: Not Answered Alcohol UseStandard Drinks/WeekCommentsYes2 (1 standard drink = 0.6 oz pure alcohol)CommentsUnknownSex and Gender InformationValueDate RecordedSex Assigned at BirthNot on fileLegal XzmAmetvc19/15/2023 7:21 PM EDTGender Identity Not on fileSexual OrientationNot on file Last Filed Vital Signs Vital SignReadingTime TakenCommentsBlood Brkwkgde576/80008/19/2019 12:00 PM EST Pulse--Temperature--Respiratory Rate--Oxygen Saturation--Inhaled Oxygen Concentration--Lmpgty65.2 kg (190 lb)05/14/2024 8:50 AM HZEGbqiim927.1 cm (5' 5 )05/14/2024 8:50 AM ESTBody Mass Index31.6205/14/2024 8:50 AM EST Plan of Treatment DateTypeDepartmentCare Team (Latest Contact Info)Ultlizqkurw21/10/2025 9:30 AM ESTOffice Visit [facility] [address] [place] [address] Brody Castro, VACUUM EXTRACTOR OPERATOR [address] [place] [address] Health MaintenanceDue DateLast DoneCommentsCT Xasasgldeecb1950Colonoscopy 1950FIT1950FOBT1950 0032Clfoqvwfaxlrj08/31/1420Msxtmbfop13/31/1990 Pneumococcal Vaccine: 65+ Years (3 of 3 - PCV20 or PCV21), 04/10/2015, 10/11/2013COVID-19 Vaccine ( season)/12/2024, 04/01/2024, 04/04/2023, Additional history existsColorectal Cancer Screening 02/13/2026FIT-DNA608/01/2023, 08/28/2019Influenza VaccineCompleted 04/14/2025, 04/01/2024, 04/04/2023, Additional history exists Insurance Care Teams Team MemberRelationshipSpecialtyStart DateEnd Date Jordan Castillo DO [address] [facility] [place] [id number] PCP - GeneralInternal Medicine04/07/25
--- OUTSIDE RECORDS SUMMARY | 2025-05-15 06:36 | XMS_ITS | CCD ---
Author Organization [facility] Care Team Providers Care Director Of Exhibits Name Role Phone Unavailable Primary Care Provider [...] Unavailable BALL, DR FLEMING Primary Care Unavailable BALL, DR FLEMING Consulting Unavailable BALL, DR FLEMING Attending Unavailable BALL, DR FLEMING Admitting Unavailable FLAQUITO, DR EMILY Cleary Consulting Unavailable BALL, DR FLEMING Primary Care Unavailable MONE, DR BONNY Jain Consulting Unavailable APLING, EULA Perez Admitting Unavailable APLING, EULA Perez Attending Unavailable APLING, EULA B Consulting Unavailable NEHA MAN Attending Unavailable NEHA MAN Admitting Unavailable ADORE, DR FLEMING Primary Care Unavailable Jordan Avitia Unavailable Hiwot PAYAN, Jessica Tavarez Attending Unavailable Unavailable Primary Care Provider Unavailabl e HABBOUB, JORGE Attending Unavailable HABBOUB, JORGE Admitting Unavailable RACHELLUCIANO DAMICO Consulting UnavailLITZY Graham Referring Unavailable LITZY TODD [...] Provider Jordan Avitia DO Primary Care Provider Jordan Avitia DO Attending Provider Jordan Avitia DO Primary Care Provider Jordan Avitia DO Primary Care Provider NICOLE MITCHELL Attending Unavailable JR. OLGUIN GEORGE C Attending Unavaila EULA Hudson Attending Unavailable ROSSANA MILLER Attending Unavailable APLEULA CATHERINE Attending Unavailable APLING, EULA Perez Attending Unavailable Jordan Avitia DO Primary Care Provider Allergies Allergy ClassificationReported Allergen(s)Allergy TypeDate of OnsetReaction(s) Facility (5 sources)patient allergy list reviewed by nurse or physiciaPropensity to adverse grxytndyc61-22-9829Rwcbpkt:[employer] Other (5 sources)Allergies ReconciledPropensity to adverse reactionsButler Hospital [facility] Other Medications Current Medications MedicationDrug Class(es)DatesSig (Normalized)Sig (Original)acetaminophen 325 mg / HYDROcodone bitartrate 5 mg oral tablet (1 source)Opioid AgonistStart: 05-14-2024 End: 45-23-0295newr 1 tablet by mouth every six hours for painHYDROcodone- acetaminophen ([place]) 5-325 MG tablet Indications: Trigger finger of right thumb Take 1tablet by mouth every 6 (six) hours if needed for severe pain for up to 3 days 12 tablet Activeacetaminophen 325 mg / oxyCODONE hydrochloride 5 mg oral tablet (1 source)Opioid AgonistStart: 12-16-2023 End: 39-45-0155cjcw 1 tablet by mouth every six hours as needed for pain oxyCODONE-acetaminophen (PERCOCET) 5-325 mg tablet Indications: S/P lumbar spinal fusion Take 1 tablet by mouth every 6 hours as needed for pain for up to 7 days. 28 tablet 0 12/16/2023 12/23/2023 ActiveamLODIPine 5 mg oral tablet (20 sources)Dihydropyridine Calcium Channel BlockerStart: 09-02-2023 End: 24-86-6464laVPWQYinh (Norvasc) 5 MG tablet Daily 09/02/2023 ActiveStart: 77-67-8235ddgw 1 tablet by mouth every twenty-four hoursamLODIPine Besylate 5 MG 1 tablet Orally Once a day for 30 days Jan, ActiveamLODIPine Besylate TAKE 1 TABLET BY MOUTH EVERY DAY FOR 30 DAYS Orally Once a day ActiveamLODIPine Besylate TAKE 1 TABLET BY MOUTH EVERY DAY FOR 30 DAYS Orally Once a day for 90 days ActiveComment on above:TAKE 1 TABLET BY MOUTH ONCE EVERYDAYbaclofen 10 mg oral tablet (20 sources)gamma-Aminobutyric Acid-ergic AgonistStart: 04-28-2023 End: 04-98-5221mcdh 0.5 tablet by mouth once daily in the morning, then take 1-2 tablets by mouth at bedtimebaclofen (Lioresal) 10 MG tablet TAKE 1/2 TABLET BY MOUTH EVERY MORNING AND AFTERNOON AND 1 TO 2 TABLETS AT BEDTIME 04/28/2023 05/13/2024 Discontinued (Med list cleanup)take 1 tablet by mouth every twenty- four hoursBaclofen 10 MG 1 tablet as needed Orally Once a day Activetake 2 tablets by mouth once daily at bedtimeBaclofen 10 MG 2 tablet Orally qhs Active Comment on above:TAKE 1/2 TAB BY MOUTH EVERY MORNING,1/2 TAB EVERY AFTERNOON,THEN 1 TO 2 TABS EVERY DAY AT BEDTIMEcalcium carbonate 1250 mg / cholecalciferol 100 unt chewable tablet (5 sources)Vitamin Dtake 1 tablet by mouth every twenty-four hoursCalcium 500- 2.5 MG-MCG 1 tablet with a meal Orally Once a day ActiveCalcium Carbonate- Vitamin D2 (3 sources)Start: 64-97-7719lbap 1 tablet by mouth once dailyCalcium Carbonate- Vitamin D2 Active TAB PO Daily February 08, 2024 12:00amCalcium Carbonate-Vitamin D2 500 mg(1,250mg) -200 unit tablet (1 source)Start: 59-25-5024ukgu 1 tablet by mouth once dailyCalcium Carbonate- Vitamin D2 500 mg(1,250mg) -200 unit tablet Active TAB PO Daily February 08, 2024 12:00am Complies with drug therapygabapentin 300 mg oral capsule (20 sources)Anti-epileptic AgentStart: 09-04-2023 End: 20-10-3573gpik 1 capsule by mouth twice dailygabapentin (NEURONTIN) 300 mg capsule Take 1 capsule by mouth two times a day for 90 days. 60 capsule 2 12/05/2023 03/04/2024 ActiveStart: 09-05-2022 End: 63-36-9385twfb 1 capsule by mouth twice dailygabapentin (NEURONTIN) 300 mg capsule Take 1 capsule by mouth twice daily for 90 days. 60 capsule 12/04/2022 ActiveComment on above:Take 1 capsule by mouth twice daily for 90 days.Take 1 capsule by mouth two times a day for 90 days.ibuprofen 200 mg oral tablet (20 sources)Nonsteroidal Anti-inflammatory DrugStart: 53-04-8971mnrkxuidu 200 MG tablet Once 02/08/2024 ActiveStart: 03-71-0113tcng 2 tablets by mouth once as neededIbuprofen 200 mg tablet Active 400 MG PO Once as needed February 08, 2024 12:00am Complies with drugtherapyStart: 51-83-5018utxo 400 mg by mouth once Ibuprofen Active 400 MG PO Once February 08, 2024 12:00amStart: 12-76-1687ssrp 2 tablets by mouth once daily at mealtime as neededIbuprofen 200 MG 2 tablets with food or milk as needed Orally once a day Sep, ActiveStart: 09-26-2021 Ibuprofen 200MG Ibuprofen( 200MG Oral as needed ) Active -Hx Entry Oral as needed Sep, Activetake 1 tablet by mouth every six hours as needed for painibuprofen (MOTRIN) 400 mg tablet Take 1 tablet (400 mg total) by mouth every 6 (six) hours as needed for pain. ActiveMulti For Her - (5 sources)Multi For Her - as directed Orally ActiveMULTI-VITAMIN ORAL (12 sources)MULTI-VITAMIN ORAL Take by mouth once daily. 0 ActiveComment on above:Take by mouth once daily.Multiple Vitamins-Minerals (Multi For Her 50+) tablet (17 sources)Multiple Vitamins-Minerals (Multi For Her 50+) tablet as directed Orally Bzrkkgcarcgaxt-xdnw-ZC-calcium &mins (THERAGRAN-M) 9 mg iron-400 mcg tablet (1 source)ghohxivz-xuya-HD-calcium &mins (THERAGRAN-M) 9 mg iron-400 mcg tablet Take 1 tablet by mouth inthe morning. HgttgwRkgqukbcldcl-An-Rwou-Minerals (3 sources)Start: 59-60-9342Hhtkwsqsucob-Tt-Slkz-Xhmcotrl Active TAB PO February 08, 2024 12:11crQeqxxeehaire-Jk-Idia-Minerals tablet (1 source)Start: 61-88-6006Tuiyhbqiwqfy-Mc-Wxnx-Zqhvzwju tablet Active TAB PO February 08, 2024 12:00am Complies with drug therapymupirocin 0.02 mg/mg topical ointment (4 sources)RNA Synthetase Inhibitor AntibacterialStart: 12-10-2023 End: 71-57-3302evezonncs (BACTROBAN) 2 % ointment Apply 1/2 ointment with a cotton swab in each nostril 2x daily for five days preop Patient should start on December 10, 2023. 22 g 0 12/10/2023 12/14/2023 ActiveStart: 12-10-2023 End: 56-20-5366ktjyvrkdt (BACTROBAN) 2 % ointment Apply 1/2 ointment with a cotton swab in each nostril 2x daily for five days preop Patient should start on December 10, 2023. 22 g 0 12/10/2023 11/15/2023 Discontinued (Discontinued by Patient)Start: 12-10-2023 End: 72-12-8947clagmyaxh (BACTROBAN) 2 % ointment Apply 1/2 ointment with a cotton swab in each nostril 2x daily for five days preop Patient should start on December 10, 2023. 22 g 0 12/10/2023 12/14/2023 ActiveComment on above:Apply 1/2 ointment with a cotton swab in each nostril 2x daily for five days preop Patient should start on December 10, 2023.olmesartan medoxomil 20 mg oral tablet (20 sources)Angiotensin 2 Receptor BlockerStart: 03-21-2023 End: 97-79-7964iidk 1 tablet by mouth in the morningolmesartan (BENIcar) 20 MG tablet Take 20 mg by mouth in the morning. 04/20/2023 ActiveComment on above: TAKE 1 TABLET BY MOUTH 1 DAILYpaxlovid (300/100) 20 x 150 mg & 10 x 100mg tablet therapy pack (2 sources)Start: 13-79-0042Zhguqwhc (300/100) 20 x 150 MG & 10 x 100MG as directed Orally bid for 5 days Jun, Active Completed/Discontinued Medications MedicationDrug Class(es)DatesSig (Normalized)Sig (Original)cholecalciferol 0.125 mg oral capsule (5 sources)Vitamin DStart: 08-28-2022 End: 64-11-7507ozkq 1 capsule by mouth three times weeklyCholecalciferol, Vitamin D3, 125 mcg (5,000 unit) cap Take 5,000 Units by mouth three times a week.0 08/28/2022 11/15/2023 DiscontinuedComment on above:Take 5,000 Units by mouth three times a week.DAILY-SAÚL, WITH FOLIC ACID, 400 mcg (5 sources)Start: 07-19-2022 End: 16-30-9905zgtk 1 tablet by mouth once dailyDAILY-SAÚL, WITH FOLIC ACID, 400 mcg Take 1 tablet by mouth once daily. 0 07/19/2022 11/15/2023 Discontinued Start: 97-05-9671rikn 1 tablet by mouth once dailyDAILY-SAÚL, WITH FOLIC ACID, 400 mcg Take 1 tablet by mouth once daily. 0 07/19/2022 ActiveComment on above: Take 1 tablet by mouth once daily.nitrofurantoin, macrocrystals 25 mg / nitrofurantoin, monohydrate 75 mg oral capsule (5 sources)Nitrofuran AntibacterialStart: 53-36-9137pswx 1 capsule by mouth every twelve hoursMacrobid 100 MG 1 capsule with food Orally every 12 hrs for 7 day(s) Aug, Not-Takingrosuvastatin calcium 5 mg oral tablet (6 sources)HMG-CoA Reductase InhibitorStart: 09-04-2023 End: 77-54-9694igxqsnvnwmhp (CRESTOR) 5 mg tabletStart: 75-31-2046wucy 1 tablet by mouth every twenty-four hoursRosuvastatin Calcium 5 MG 1 tablet Orally Once a day for 30 days May, ActiveVITAMINS B COMPLEX capsule (5 sources)Start: 07-19-2022 End: 92-41-1628bgmt 1 capsule by mouth once dailyVITAMINS B COMPLEX capsule Take 1 capsule by mouth once daily. 0 07/19/2022 11/15/2023 DiscontinuedStart: 57-78-6808dutj 1 capsule by mouth once dailyVITAMINS B COMPLEX capsule Take 1 capsule by mouth once daily. 0 07/19/2022 ActiveComment on above:Take 1 capsule by mouth once daily.zonisamide 100 mg oral capsule (1 source)Anti-epileptic AgentStart: 07-27-2023 End: 17-36-0807pgnr 2 capsules by mouth once daily at bedtimezonisamide (ZONEGRAN) 100 mg capsule take 2 capsules by mouth every day at bedtime 0 07/27/2023 11/15/2023 Discontinued Problems Active Problems Problem ClassificationProblemDateDocumented DateEpisodic/ChronicAbdominal pain (2 sources)Abdominal pain; Translations: [Unspecified abdominal pain]02-11-2025 EpisodicAcquired foot deformities (10 sources)Disorder of ankle; Translations: [Valgus deformity, not elsewhere classified, right ankle]EpisodicDisorders of lipid metabolism (20 sources)Pure hypercholesterolemia; Translations: [Familial hypercholesterolemia]Onset: 88-04-8389VvaebpaZ Codes: Adverse effects of medical drugs (1 source)Adverse effect of other antihypertensive drugs, initial encounter EpisodicEsophageal disorders (20 sources)Gastro-esophageal reflux disease with esophagitis; Translations: [Gastroesophageal reflux disease with esophagitis without hemorrhage]Onset: 126441-86-4719RuezqrvQhjksezwl hypertension (20 sources)Essential hypertension; Translations: [Essential (primary) hypertension]Onset: 42-99-0994TmstzaaVrazkffp sclerosis (12 sources)Multiple sclerosis; Translations: [Multiple sclerosis]02-07-2024 ChronicOsteoarthritis (10 sources)Localized, primary osteoarthritis of the shoulder region; Translations: [Primary osteoarthritis, right shoulder]ChronicOther acquired deformities (1 source)Degenerative scoliosis; Translations: [Other secondary scoliosis, site unspecified]ChronicOther connective tissue disease (2 sources)Pain in left leg; Translations: [PAIN IN LEFT LEG]Onset: 09-16-2022 EpisodicOther connective tissue disease (1 source)Pain in right legEpisodicOther connective tissue disease (3 sources)Arthrodesis status; Translations: [S/P lumbar spinal fusion]Onset: 89-86-1046RabypnggHaqcg connective tissue disease (2 sources)Triggering of digit; Translations: [Trigger finger, unspecified finger]01-82-8104GmtrbqaoHkuiu connective tissue disease (1 source)Trigger finger, unspecified finger; Translations: [Trigger finger (acquired)]90-71-5994IromjvmsOgmjv connective tissue disease (4 sources)Pain in right thumb; Translations: [Pain in right finger(s)] 16-63-1601ObeajyboWqeic connective tissue disease (5 sources)Trigger thumb of right hand; Translations: [Trigger thumb, right thumb]00-57-7718KpohgahlFmfix connective tissue disease (4 sources)Pain in left thumb; Translations: [Pain in left finger(s)]04-06-2025 EpisodicOther connective tissue disease (4 sources)Trigger thumb of left hand; Translations: [Trigger thumb, left thumb] 61-65-8835GtodpyepRnqvi eye disorders (18 sources)Posterior vitreous detachment of right eye; Translations: [Vitreous degeneration, right eye]Onset: 120616-03-8338NjlapfrOtnqn female genital disorders (10 sources)Other specified conditions associated with female genital organs and menstrual cycle; Translations:[Oth cond assoc w female genital organs and menstrual cycle]EpisodicOther gastrointestinal disorders (1 source)Drug induced constipationEpisodicOther gastrointestinal disorders (3 sources)Oropharyngeal dysphagia; Translations: [Dysphagia, oropharyngeal phase]EpisodicOther gastrointestinal disorders (1 source)Dysphagia, oropharyngeal phaseEpisodicOther liver diseases (11 sources)Steatosis of liver; Translations: [Fatty (change of) liver, not elsewhere classified]Onset: 359220-79-5933XuactskVceni liver diseases (18 sources)Inflammatory disease of liver; Translations: [Inflammatory liver disease, unspecified]Onset: 696629-46-7528MtnxmcjKfsno liver diseases (7 sources)Fatty (change of) liver, not elsewhere classified; Translations: [Metabolic dysfunction-associated steatotic liver disease (MASLD)]Onset: 785098-02-8878QzrcstrEgdba liver diseases (3 sources)Enzyme level - finding; Translations: [Transaminasemia]02-08-2024 EpisodicOther nervous system disorders (5 sources)Other chronic pain; Translations: [OTHER CHRONIC PAIN]Onset: 04-66-4437HhblyvvOlflt nervous system disorders (2 sources)Carpal tunnel syndrome of right wrist; Translations: [Carpal tunnel syndrome, right upper limb]89-09-1979NllkrvyMgitm non-traumatic joint disorders (1 source)Pain in right hip joint; Translations: [Pain in right hip]11-15-2023 EpisodicOther non-traumatic joint disorders (1 source)Pain in right hip; Translations: [Pain in right hip]Onset: 11-15-2023 EpisodicOther nutritional; endocrine; and metabolic disorders (10 sources)Body mass index 30+ - obesity; Translations: [Body mass index (BMI) 33.0-33.9, adult]ChronicOther nutritional; endocrine; and metabolic disorders (10 sources)Obesity caused by energy imbalance; Translations: [Other obesity due to excess calories]ChronicOther nutritional; endocrine; and metabolic disorders (6 sources)Obese class I; Translations: [Obesity, unspecified]Onset: 12-16-2023 62-92-6329BicqzvwEepan screening for suspected conditions (not mental disorders or infectious disease) (9 sources)Encounter for screening mammogram for malignant neoplasm of breast; Translations: [Other screening mammogram]Onset: 49-33-1856WvbosvndDdbjjmbd codes; unclassified (1 source)Pain; Translations: [Pain, unspecified]74-06-2826RvhyuzvfFkrlopds codes; unclassified (1 source)Pain, unspecified; Translations: [Pain, unspecified]Onset: 11-15-2023 EpisodicRetinal detachments; defects; vascular occlusion; and retinopathy (20 sources)Hypertensive retinopathy; Translations: [Hypertensive retinopathy, bilateral]Onset: 40-92-6262AikmggtFyfcqosakdj; intervertebral disc disorders; other back problems (20 sources)Spondylosis without myelopathy or radiculopathy, lumbosacral region; Translations: [Spondylosis without myelopathy or radiculopathy, lumbar region] Onset: 71-39-1661VlspskqOiiydcvyvzrk (3 sources)LOW BACK PAIN, UNSPECIFIED; Translations: [LOW BACK PAIN, UNSPECIFIED]Onset: 11-07-2022 Past or Other Problems Problem ClassificationProblemDateDocumented DateEpisodic/ChronicBenign neoplasm of uterus (10 sources)Uterine leiomyoma; Translations: [Leiomyoma of uterus, unspecified] Resolved: 49-97-9565KsssajvjHalvklji mellitus without complication (20 sources)Impaired fasting glycemia; Translations: [Impaired fasting glucose] Onset: 300525-78-7283QqfrdcmlAylporlnkk disorders (5 sources)Esophageal disorders; Translations: [Gastroesophageal reflux disease with esophagitis without hemorrhage]Other connective tissue disease (20 sources)History of lumbar fusion; Translations: [Arthrodesis status]Onset: 924328-41-0037MkebgxnbAkdnmplb codes; unclassified (1 source)Family history of malignant neoplasm of breast; Translations: [FAMILY HX MALIG NEOPLASM OF BREAST]Onset: 22-61-6776DcqbwfpcYapzkvwu codes; unclassified (1 source)Family history of malignant neoplasm of digestive organs; Translations: [FAM AMADA MALBEENA NEOPLASM DIGESTIV ORGN]Onset: 68-07-9946Bfrqmexg Spondylosis; intervertebral disc disorders; other back problems (20 sources)Radiculopathy, lumbar region; Translations: [Spinal stenosis, site unspecified]Onset: 16-41-3444YioygusoOxvvqpcilyat (1 source)LOW BACK PAIN, UNSPECIFIED; Translations: [LOW BACK PAIN, UNSPECIFIED] Onset: 11-03-2022 Results Test NameValueInterpretationReference RangeFacilityBasophils Auto (Bld) [#/Vol] on 74-34-1240Iagacutzg (Bld) [#/Vol]0.0 10 3/uL0.0-0.1FParkview HealthBasophils/100 WBC Auto (Bld)on 60-35-7701Xysqvuqab/100 WBC (Bld)0.6 % 0.2-2.0[facility] PrebleDiagnostic impression [Interpretation] in Specimen Narrativeon 65-55-7814Lxsbynhtzt impression Molgen Buck (Unsp spec) [Interp]Comment.[facility] PrebleComment on above:Not infected with HCV unless early or acute infection issuspected (which may be delayed in an immunocompromisedindividual), or other evidence exists to indicate HCVinfection.Performed at: - [facility] [id number] Director: Kiet Godwin PhD, Phone: [phone]/100 WBC Auto (Bld)on 11-31-3820Cnvjcywdqdx/100 WBC (Bld)2.2 %0.9-7.0[facility] PrebleErythrocyte distribution width Auto (RBC) [Ratio]on 29-93-9914Zxmksyikfun distribution width (RBC) [Ratio]12.9 %11.0-15.0[facility] PrebleGlobulin Calc (S) [Mass/Vol]on 68-03-4263Wozxmhuc (S) [Mass/Vol]3.5 g/dLKettering Health PrebleHematocrit Auto (Bld) [Volume fraction]on 76-56-4129Ofcqasotmz (Bld) [Volume fraction]38.3 %36.0-48.0 [facility] PrebleHemoglobin [Mass/volume] in Bloodon 04-11-2024 Hemoglobin (Bld) [Mass/Vol]13.0 g/dL12.0-16.0[facility] Hepatitis A virus Ab [Presence] in Serum by Immunoassayon 80-57-1033JMQ Ab IA Ql (S)NegativeNegativeKettering Health PrebleComment on above:Comment: The HAV total antibody assay detects both IgG andIgM but does not differentiate between them. A negativeresult suggests susceptibility to infection. A positiveresult could be due to vaccination, previously resolvedinfection or active infection. Testing for HAV IgM shouldbe performed if active HAV infection is suspected. Labcorpoffers profiles that will automatically reflex positive HAVtotal antibody results to IgM (e.g., panel #[id number] HAVAntibody w/ Rfx).Performed at: [facility] [id number] Director: Kiet Godwin PhD, Phone: [phone] - Chemistry and Chemistry - challengeon 28-55-9837Ssrqnwz [Mass/Vol]3.5 g/dL3.4-5.0[facility] PrebleALP [Catalytic activity/Vol]106 U/R28-605LqdrluffdKettering Health PrebleALT [Catalytic activity/Vol]49 U/L44-05ViubrslddKettering Health PrebleAST [Catalytic activity/Vol]36 U/X69-51AlipjyizfKettering Health PrebleBilirubin [Mass/Vol]0.5 mg/dL0.2-1.0[facility] Bilirubin.direct [Mass/Vol]0.1 mg/dL0.0-0.2FParkview Health Ferritin [Mass/Vol]308.0 ng/mLHigh8.0-252.0[facility] Protein [Mass/Vol]7.0 g/dL6.4-8.2FParkview HealthLaboratory - Hematology and Cell countson 92-37-9788Pmttmuan granulocytes/100 WBC (Bld)0.4 % 0.0-0.5FParkview HealthLeukocytes [#/volume] corrected for nucleated erythrocytes in Blood by Automated counon 96-44-4163KRV corrected for nucl RBC Auto (Bld) [#/Vol]4.9 10 3/uL4.0-11.0[facility] Lymphocytes Auto (Bld) [#/Vol]on 63-94-9784Atrpwwenzbk (Bld) [#/Vol]1.8 10 3/uL 1.2-3.8[facility] PrebleLymphocytes/100 WBC Auto (Bld)on 87-56-8695Bhcoijdnzew/100 WBC (Bld)36.9 %20.5-60.0[facility] HospitalH Auto (RBC) [Entitic mass]on 20-27-2248MTI (RBC) [Entitic mass]31.2 pg 26.7-34.0[facility] PrebleMCHC Auto (RBC) [Mass/Vol]on 15-83-8292PJHN (RBC) [Mass/Vol]33.9 g/dL29.9-35.2FParkview HealthMCV Auto (RBC) [Entitic vol]on 17-99-6420VWE (RBC) [Entitic vol]91.8 fL 81.0-99.0[facility] PrebleMonocytes Auto (Bld) [#/Vol]on 82-59-5646Amkritwqw (Bld) [#/Vol]0.4 10 3/uL0.3-0.8[facility] PrebleMonocytes/100 WBC Auto (Bld)on 10-21-3139Dqjxtspxz/100 WBC (Bld)9.0 % 1.7-12.0[facility] PrebleNeutrophils Auto (Bld) [#/Vol]on 44-16-3842Ljuaeibffgs (Bld) [#/Vol]2.5 10 3/uL1.4-6.5FParkview HealthNeutrophils/100 WBC Auto (Bld)on 05-44-0459Cidbsevnyve/100 WBC (Bld)50.9 % 43.0-75.0[facility] PrebleNo Panel Informationon 04-11-2024 Eosinophils # (Auto)0.1 10 3/uL0.0-0.7FParkview HealthHepatitis B Core Total AntibodyNegativeNegativeKettering Health PrebleImmature Granulocyte # (Auto)0.02 10 3/uL0.00-0.03[facility] Platelet mean volume Auto (Bld) [Entitic vol]on 70-76-2103Jpievpkn mean volume (Bld) [Entitic vol]9.6 fL9.5-13.5FParkview HealthPlatelets Auto (Bld) [#/Vol]on 42-47-9568Daiouqblt (Bld) [#/Vol]169 10 3/tV375-292GuyyritnlKettering Health PrebleRBC Auto (Bld) [#/Vol]on 08-21-5526RQJ (Bld) [#/Vol]4.17 10 6/uLLow4.20-5.40[facility]-Fairhillerum or plasma albumin/globulin mass ratioon 28-66-8397Kfmisym/Globulin [Mass ratio]1.0 {ratio} [facility]-Fairhillerum or plasma free cefuroxime measurement (mass/volume)on 22-60-3098Bccmmiepgg free [Mass/Vol]NegativeNegativeKettering Health PrebleComment on above:Performed at: [facility] [id number] Director: Kiet Godwin PhD, Phone: [phone] or plasma hepatitis C virus antibody signal/cutoff ratio by immunoassay (relation 53-21-1200ZXD Ab Signal/Cutoff IA [Rel units/Vol] Non-ReactiveNon ReactiveKettering Health PrebleCNPNon 07-74-7171OIWC Telephone (YARITZAFV) CHRISTIAN NOYOLA ([id number]) 1950 F Date Time Provider Department 01/23/24 JORGE DESAI During your visit today, we recorded the following information about you: Emily Ellis 01/23/2024 1:47 PM Signed [facility] Progress Note scanned to [facility] for review and signature Debbi Brizuela RN 01/23/2024 2:26 PM Signed Printed for review and signature. Debbi Brizuela RN 01/24/2024 2:04 PM Signed Signed form faxed to number requested. Faxed verification received. 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 Layboy Operator: LARA Transcribe Date/Time: Jan 15 2024 12:39P Dictated by : MAYITO RAMIREZ MD This examination was interpreted and the report reviewed and electronically signed by: MAYITO RAMIREZ MD on Jan 15 2024 12:42PM EST [id number] Private HospitalXR Lumbar spine AP and Lateralon 73-83-4971RVMZPZZKPY: Postoperative and degenerative changes, similar to prior. Layboy Operator: [facility] Transcribe Date/Time: Jan 15 2024 12:39P Dictated by : MAYITO RAMIREZ MD This examination was interpreted and the report reviewed and electronically signed by: MAYITO RAMIREZ MD on Jan 15 2024 12:42PM EST DIVISION OF RADIOLOGY* * *Final Report* * * DATE OF [...] overlying the left upper quadrant. DIVISION OF RADIOLOGYProvider, [facility] - 01/15/2024 * * *Final Report* * [...] Postoperative and degenerative changes, similar to prior. Layboy Operator: [facility] Transcribe Date/Time: Jan 15 2024 12:39P Dictated by : MAYITO RAMIREZ MD This examination was interpreted and the report reviewed and electronically signed by: MAYITO RAMIREZ MD on Jan 15 2024 12:42PM [facility] HospitalRadiology [facility] observation (narrative)[facility] Lumbar spine AP and LateralOrdered By: Ccf Provider on 65-16-2203Mzkalgwng ClinicCNPN on 24-50-3058LXIQWlkktqeat (NEADFV) CHRISTIAN NOYOLA ([id number]) 1950 F Date Time Provider Department 01/03/24 GISELLE JORGELIYAH RUIZ During your visit today, we recorded the following information about you: Emily Ellis 01/03/2024 1:56 PM [facility]igned [facility] Initial Exam report scanned to [facility] Debbi Brizuela, ABBY 01/03/2024 4:19 PM Signed Printed for review and signature. Debbi Brizuela RN 01/05/2024 9:21 AM Signed Signed form faxed to number requested. Faxed verification received. 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 [5570] Prescriptions as of 01/05/2024 - gabapentin (NEURONTIN) [...] 12/16/2023 Encounter Status:Closed by DEBBI BRIZUELA on 01/05/24[facility] on 69-97-5752IPHTMzpxan Visit (NSFRVW) CHRISTIAN NOYOLA ([id number]) 1950 F Date Time Provider Department 12/28/23 1:00 PM LITZY TODD NSFRVW During your visit today, we recorded the following information about you: Pulse Blood pressure Weight Height 78/minute 137/64 87.3 kg 1.626 m Litzy Todd, GEOINT ANALYST.CHILD AND FAMILY SERVICES WORKER 12/28/2023 11:49 PM Signed SPINE SURGERY FOLLOW [...] which included preparing to see the patient, xrey-ck-ohcc patient care, completing clinical documentation, obtaining and/or [...] Order(s):CONSULT TO PHYSICAL THERAPY [9032] Order #: [id number]: 1 FUTURE XR LUMBAR LIMITED 2V AP/LAT [[id number]] Order #: [id number] FUTURE Prescriptions as of 12/28/2023 - gabapentin (NEURONTIN) 300 mg capsule Take 1 capsule by mouth two times a day for 90 days. - amLODIPine (NORVASC) 5 mg tablet TAKE 1 TABLET BY MOUTH ONCE EVERYDAY - olmesartan (more content not included)...[facility] 31-84-2779ZUWBXcirxrggm ([facility]) CHRISTIAN NOYOLA ([id number]) 1950 F Date Time Provider Department 12/18/23 [facility] During your visit today, we recorded the following information about you: Emily Ellis 12/18/2023 9:29 AM Signed Pt phoned reporting fever with chills on Saturday 12/16 post op. Surgery was Thursday 12/14. Please call and advise Pt phone # [phone] Vinod Morton RN 12/18/2023 11:11 AM Signed [...] Date Reviewed: 12/16/2023 Reviewed by: Sylvia Gordon APRN.CHILD AND FAMILY SERVICES WORKER - Fully Assessed Reason for Visit: Fever [Other] Prescriptions as of 12/18/2023 - oxyCODONE-acetaminophen (PERCOCET) 5-325 mg tablet Take 1 tablet [...] 12/16/2023 Encounter Status:Closed by VINOD MORTON on 12/18/23[facility] Basic metabolic 2000 panelon 46-52-7112Efoar gap [Moles/Vol]12 mmol/LNormal8-15 [facility] HospitalComment on above:Order Comment: Specimen Type: BLOOD SPECIMENOrdering Facility: [facility] Address:[address] [place], [place] [address]Performed By: #### 77774-2 ####BAHAI LABORATORYCLIA [id number] [place] [address] [place] AMERICACalcium [Mass/Vol]9.0 mg/dLNormal8.5-10.2[facility] HospitalComment on above:Order Comment: Specimen Type: BLOOD SPECIMENOrdering Facility: [facility] Address:[address] [place], [place] [address]Performed By: #### 85964- 2 ####BAHAI LABORATORYCLIA [id number] [place] [address] [place] AMERICAChloride [Moles/Vol]105 mmol/FAtogbs00-889Qlddfodg HospitalComment on above:Order Comment: Specimen Type: BLOOD SPECIMENOrdering Facility: [facility] Address:[address] [place], [place] [address]Performed By: #### 26673-4 ####BAHAI LABORATORYCLIA [id number] [place] [address] [place] AMERICACO2 [Moles/Vol]24 mmol/L Vwcfpl91-19Efyfmupt HospitalComment on above:Order Comment: Specimen Type: BLOOD SPECIMENOrdering Facility: [facility] Address:[address] [place], [place] [address]Performed By: #### 09656-9 ####BAHAI LABORATORYCLIA [id number] [place] [address] [place] Creatinine [Mass/Vol]0.98 mg/dLHigh0.58-0.96[facility] HospitalComment on above: Order Comment: Specimen Type: BLOOD SPECIMENOrdering Facility: [facility] Address:[address] [place], [place] [address]Performed By: #### 33775- 2 ####BAHAI LABORATORYCLIA [id number] [place] [address] [place] AMERICACreatinine and Glomerular filtration rate.predicted panel (S/P/Bld)61 mL/min/1.73m???Normal>=60[facility] HospitalComment on above: Order Comment: Specimen Type: BLOOD SPECIMENOrdering Facility: [facility] Address:[address] [place], [place] [address]Result Comment: Estimated Glomerular Filtration Rate (eGFR) is calculated using the 2020 CKD-EPI cre atinine equation. This equation utilizes serum creatinine, sex, and age as parameters. The creatinine assay has traceable calibration to isotope dilution- mass spectrometry. Refer to KDIGO guidelines for clinical interpretation. In patients with unstable renal function, e.g. those with acute kidney injury, the eGFR may not accurately reflect actual GFR.Performed By: #### 06538-0 ####BAHAI LABORATORYCLIA [id number] [place] [address] [place] AMERICAGlucose [Mass/Vol]101 mg/xEUnin55-49Cbhjkodr Hospital Comment on above:Order Comment: Specimen Type: BLOOD SPECIMENOrdering Facility: [facility] Address:[address] [place], [place] [address]Result Comment: The [place] Diabetes Association (ADA) provides guidance for cutoff [...] Standards of Medical Care in Diabetes 2016, [place] Diabetes Association. Diabetes Care. 2016.39(Suppl 1).Performed By: #### 98365-3 ####BAHAI LABORATORYCLIA [id number] [place] [address] [place] AMERICAPotassium [Moles/Vol]4.3 mmol/LNormal3.7-5.1Lfostoria city hospital HospitalComment on above:Order Comment: Specimen Type: BLOOD SPECIMENOrdering Facility: [facility] Address:[address] [place], [place] [address]Performed By: #### 41168-4 ####BAHAI LABORATORYCLIA [id number] [place] [address] [place] AMERICASodium [Moles/Vol]141 mmol/TIospfj183-777Ylsbvxhd HospitalComment on above:Order Comment: Specimen Type: BLOOD SPECIMENOrdering Facility: [facility] Address:[address] [place], [place] [address]Performed By: #### 50842-0 ####BAHAI LABORATORYCLIA [id number] [place] [address] [place] AMERICAUrea nitrogen [Mass/Vol]14 mg/dLNormal7-21[facility] HospitalComment on above:Order Comment: Specimen Type: BLOOD SPECIMENOrdering Facility: [facility] Address:[address] [place], [place] [address]Performed By: #### 11524-2 ####BAHAI LABORATORYIA [id number] [place] [address] [place] AMERICACBC panel Auto (Bld)on 67-73-5997Esipzhwrntp distribution width (RBC) [Ratio]12.3 %Uqgxok37.5-15.0[facility] HospitalComment on above:Order Comment: Specimen Type: BLOOD SPECIMEN [facility] Address: [address] [place], [place] [address]Performed By: #### 70962-3 #### [facility] [place] [id number] [address] [place], [place] [address] [place] OF AMERICAHematocrit (Bld) [Volume fraction] 37.6 %Qtyijq34.0-46.0[facility] HospitalComment on above:Order Comment: Specimen Type: BLOOD SPECIMEN [facility] Address: [address] [place], [place] [address]Performed By: #### 27850-3 #### [facility] [place] [id number] [address] [place], [place] [address] [place] AMERICAHemoglobin (Bld) [Mass/Vol]12.7 g/dL Ekazcm40.5-15.5[facility] HospitalComment on above:Order Comment: Specimen Type: BLOOD SPECIMEN [facility] Address: [address] [place], [place] [address]Performed By: #### 39355-0 #### [facility] [place] [id number] [address] [place], [place] [address] [place] OF AMERICAMCH (RBC) [Entitic mass]31.0 pg Ivyspk05.0-34.0[facility] HospitalComment on above:Order Comment: Specimen Type: BLOOD SPECIMEN [facility] Address: [address] [place], [place] [address]Performed By: #### 69489-6 #### [facility] IA [id number] [address] [place], [place] [address]HC (RBC) [Mass/Vol]33.8 g/dLNormal 30.5-36.0[facility]utheran HospitalComment on above:Order Comment: Specimen Type: BLOOD SPECIMEN [facility] Address: [address] [place], [place] [address]Performed By: #### 55259-5 #### [facility] [place] [id number] [address] [place], [place] [address]MCV (RBC) [Entitic vol]91.7 fLNormal 80.0-100.0[facility]uther[facility] HospitalComment on above:Order Comment: Specimen Type: BLOOD SPECIMEN [facility] Address: [address] [place], [place] [address]Performed By: #### 62838-7 #### [facility] [place] [id number] [address] [place] [address] [place] AMERICANucleated RBC (Bld) [#/Vol]10*3/uL Normal<0.01[facility] HospitalComment on above:Order Comment: Specimen Type: BLOOD SPECIMEN [facility] Address: [address] [place], [place] [address]Performed By: #### 05543-6 #### [facility] IA [id number] [address] [place], [place] [address] [place] AMERICAPlatelet mean volume (Bld) [Entitic vol]10.0 fLNormal9.0-12.7Lutheran HospitalComment on above:Order Comment: Specimen Type: BLOOD SPECIMEN [facility] Address: [address] [place], [place] [address]Performed By: #### 20695-9 #### [facility] CLIA [id number] [address] [place], [place] [address] [place] AMERICAPlatelets (Bld) [#/Vol]155 10*3/uL Uxjmqm925-641Xmepjvfg HospitalComment on above:Order Comment: Specimen Type: BLOOD SPECIMEN [facility] Address: [address] [place], [place] [address]Performed By: #### 08122-3 #### [facility] CLIA [id number] [address] (Bld) [#/Vol]4.10 10*6/uLNormal 3.90-5.20[facility] campusan HospitalComment on above:Order Comment: Specimen Type: BLOOD SPECIMEN [facility] Address: [address] [place], [place] [address]Performed By: #### 53234-8 #### [facility] IA [id number] [address]W (Bld) [#/Vol]6.70 10*3/uLNormal 3.70-11.00[facility] HospitalComment on above:Order Comment: Specimen Type: BLOOD SPECIMEN [facility] Address: [address] [place], [place] [address]Performed By: #### 15246-5 #### [facility] [place] [id number] [address] [place], [place] [address]CNDS 35-95-8068AQYKAHA ID: [id number] Author: SYLVIA GORDON APRN.CHILD AND FAMILY SERVICES WORKER Service: Neurosurgery Author Type: Nurse Practitioner Type: [...] the lives of those receiving it in assisted use. Some people receiv (more content not included)...NormalLutharrison community hospital HospitalTHERAPY NTon 53-88-6696QWALYYC NTO ID: [id number] Author: NICHOLAS CLARKE, PT Service: Physical Therapy Author Type: Physical Therapist Type: Therapy (PT/OT/Speech/Resp) Filed: 12/16/2023 10:04 Note Text: Physical Therapy Evaluation Summary SERVICE DATE: 12/16/2023 SERVICE TIME: 0937 to 09 ROOM: [place] [address] PT 6 Clicks Score: 22 Discharge Readiness: [...] Walker- Standard, Elevated Toilet Seat, Lift Chair, Health Plan Advisor PRIOR FUNCTIONAL LEVEL Within Functional Limits IND w/ ADL's and IADL's +drives. Ambulated w/o AD + no falls SUBJECTIVE Pt is pleasant and agreeable to PT THERAPY DIAGNOSIS Reduced mobility-other, Decreased activities of daily living (ADL), Muscle Weakness (generalized), Difficulty walking-musculoskeletal TREATMENT INTERVENTIONS Evaluation, Gait Training (98383) Timed Code Treatment (minutes): 6 Skilled Treatment Time (minutes): 16 TRAINING AND EDUCATION PROVIDED Advanced Balance Activities, Anatomy and Impact on Deficits, Assistive Device Use, Benefits of In-Hospital Mobility, Role of Physical Therapy, Precautions/Restrictions THERAPEUTIC SKILLS USED Activity Dosing, Cuing Tactile, Cuing Verbal, Cuing Visual FUNCTIONAL STATUS Bed Mobility Transfers Sit To Stand: Stand By Assistance Stand To Sit: Stand By Assistance Bed to Chair Gait Stand By Assistance, Additional Information initial use of standard walk, progressed to no Assistive device without significant deficit Gait Device: Standard Walker, None General Deviations/Observations: Komal decreased, Step length decreased, Arm swing [...] [place] DATE: December 16, 2023 TIME: 10:03 [facility] NTO ID: [id number] Author: MAGALI TOSCANO, OT/L Service: ? Author Type: Occupational Therapist Type: Therapy (PT/OT/Speech/Resp) Filed: 12/16/2023 09:26 Note Text: Occupational Therapy Treatment Summary SERVICE DATE: 12/16/2023 SERVICE TIME: 0854 to 919 ROOM: [place] [address] OT 6 Clicks Score: 24 DISCHARGE RECOMMENDATIONS [...] Walker- Standard, Elevated Toilet Seat, Lift Chair, Health Plan Advisor (lift bed) PRIOR FUNCTIONAL LEVEL Within Functional Limits IND w/ ADL's and IADL's +drives. Ambulated w/o AD + no falls SUBJECTIVE pt agreeable to therapy and would like to go home today COGNITION THERAPY DIAGNOSIS Reduced mobility-other, Decreased activities of daily living (ADL) TREATMENT INTERVENTIONS Evaluation, Self Alf Management (17028) Timed Code Treatment (minutes): 11 Skilled Treatment Time (minutes): 26 TRAINING AND EDUCATION PROVIDED Activity Adaptation/Compensatory Strategies, Adaptive Equipment/DME, Assistive Device Use, Bed Mobility, Discharge Planning, Functional Mobility Involving ADLs, Grooming Tasks, Home Set-up/Modifications, IADLs/Home Management, Lower Extremity Bathing, Lower Extremity Dressing, Positioning, Precautions/Restrictions, Role of Occupational Therapy, Transfer - Sit [...] [place] DATE: December 16, 2023 TIME: 9:25 [facility]XR LUMBAR 2V AP/LATon 11-64-1811RV LUMBAR 2V AP/LAT* * *Final Report* * * DATE OF [...] Variants: None. IMPRESSION: Postoperative and degenerative findings. Layboy Operator: LARA Transcribe Date/Time: Dec 16 2023 11:54A Dictated by : MARISSA GAMEZ MD This examination was interpreted and the report reviewed and electronically signed by: MARISSA GAMEZ MD on Dec 16 2023 11:56AM EST [id number] Ridge Medical Center HospitalANES POSTPROC EVALon 39-28-6031CYRU POSTPROC EVALHNO ID: [id number] Author: SASHA SONG MD Service: Anesthesiology Author Type: Anesthesiologist Type: Anesthesia Postprocedure Evaluation Filed: 12/15/2023 17:42 Note Text: POST ANESTHESIA EVALUATION NOTE : 1950 Procedure Summary Date: 12/15/23 Room / Location: OR09 / [place] OR Anesthesia Start: 1118 Anesthesia [...] December 15, 2023 TIME: 5:42 PM CSN: [id number] [facility] PRE-OPon 25-66-5428YTFJ PRE-OPHNO ID: [id number] Author: LU SCOTT MD Service: Anesthesiology Author [...] and consent discussed: yes. Patient / Responsible Green Party agrees to proceed: yes Patient / [...] Vitals Value Taken Time BP 141/73 12/15/23 075 Pulse 71 12/15/23751 Resp 16 12/15/23751 Temp [...] December 15, 2023 TIME: 11:16 AM CSN: [id number] County Health Center OP NOTon 12-15-2023 BRIEF OP NOTHNO ID: [id number] Author: JORGE DESAI MD Service: Neurosurgery Author Type: Physician Type: Brief Op Note Filed: 12/15/2023 18:21 Note Text: BRIEF OPERATIVE / PROCEDURE NOTE LOG ID: [id number] SURGERY/PROCEDURE DATE: 12/15/2023 INCISION/PROCEDURE START TIME: 12:10 PM INCISION CLOSE/PROCEDURE END TIME: 1:35 PM SURGEON(S)/PROCEDURALIST(S) AND SYSTEMS INTEGRATOR(S): Surgeon(s) and Role: * Jorge Desai MD - Primary Physician Elevator Operator Freight: An Bautista PA-C SURGERY/PROCEDURE(S): L3/4 LLIF ANESTHESIA: General FINDINGS: Appropriate decompression and hardware placement ESTIMATED BLOOD LOSS: 25 mls SPECIMENS: None COMPLICATIONS: None CLOSURE TECHNIQUE: Primary PRE-OP/PRE-PROCEDURE DIAGNOSIS: L3/4 lumbar stenosis with neurogenic claudication, degenerative scoliosis POST-OP/POST-PROCEDURE DIAGNOSIS: L3/4 lumbar stenosis with neurogenic claudication, degenerative scoliosis SIGNATURE: Jorge Desai MD PATIENT NAME: Christian Noyola DATE: December 15, 2023 TIME: 1:17 [facility] 33-39-0361ZJKZZDEASW ID: [id number] Author: LUCIANO BOSCH MD Service: General Internal [...] 15 mg injection (Toradol (more content not included)...[facility] CenterOPERATIVE NOon 84-37-4422WTBNGZPOW NOHNO ID: [id number] Author: JORGE DESAI MD Service: Neurosurgery Author Type: Physician Type: Operative Report Filed: 12/15/2023 18:44 Note Text: OPERATIVE/PROCEDURE REPORT LOG ID: [id number] SURGERY/PROCEDURE DATE: 12/15/2023 INCISION/PROCEDURE START TIME: 12:10 PM INCISION CLOSE/PROCEDURE END TIME: 1:35 PM SURGEON(S)/PROCEDURALIST(S) AND SYSTEMS INTEGRATOR(S): Surgeon(s) and Role: * Jorge Desai MD - Primary Physician Elevator Operator Freight: An Bautista PA-C SURGERY/PROCEDURE(S): L3/4 LLIF ANESTHESIA: [...] Implant Name Type Inv. Item Serial No. Wool Scourer Lot No. LRB No. Used Action SUBSTITUTE MASTERGRAFT CALCIUM PHOSPHATE COLLAGEN BONE GRAFT VOID FILLER - [id number] Cement / Putty SUBSTITUTE MASTERGRAFT CALCIUM PHOSPHATE COLLAGEN BONE GRAFT VOID FILLER [employer] [id number] N/A 1 Implanted GRAFT INFUSE 14MM SMALL BOVINE COLLAGEN RHBMP-2 23MM BONE ABSORBABLE SPONGE - [id number] Bone GRAFT INFUSE 14MM SMALL BOVINE COLLAGEN RHBMP-2 23MM BONE ABSORBABLE SPONGE [employer]ANE[employer] [id number] N/A 1 Implanted KNIFE BAYONET SURGICAL ANNULOTOMY SPINE Accessories [employer] [id number] N/A 1 Non-Implant JEREL SPACER 8-15MM 20MM X 55MM 6DEG Implant [employer] N/A 1 Implanted SELF DRILLING SCREW VARIABLE ANGLE 5.5MM 40MM Implant [employer] N/A 2 Implanted DRAINS: None COMPLICATIONS: None CLOSURE TECHNIQUE: Primary PARTICIPATION IN SURGERY/PROCEDURE: Jorge Desai and An Bautista performed the opening, decompression, hardware placement and closure together. SIGNATURE: Jorge Desai MD PATIENT NAME: Christian Noyola DATE: December 15, 2023 TIME: 6:21 [facility] AP/LATon 83-30-4506QI LUMBAR 2V AP/LAT* * *Final Report* * * DATE OF [...] Intraoperative examination for surgical planning and documentation. Layboy Operator: LARA Transcribe Date/Time: Dec 15 2023 2:50P Dictated by : FURZENA MOELLER DO This examination was interpreted and the report reviewed and electronically signed by: JEANNE MOELLER DO on Dec 15 2023 2:51PM EST [id number] central campusruiz HospitalXR VERIFY LEVEL M-MECQI-ECan 14-61-9260IA VERIFY LEVEL L-SPINE-NB* * *Final Report* * * DATE OF [...] phone and video during the surgical procedure. Layboy Operator: LARA Transcribe Date/Time: Dec 15 2023 12:35P Dictated by : JEANNE MOELLER DO This examination was interpreted and the report reviewed and electronically signed by: JEANNE MOELLER DO on Dec 15 2023 12:39PM EST [id number] Ridge Medical Center HospitalBacteria Ur Culton 11-15-2023 Bacteria identified Cx Nom (U)CULTURE, URINE: No growth (<1,000 CFU/ml)NormalKeenan Private HospitalComment on above: Performed By: #### 630-4 ####[facility] LABCLIA [id number] [address] STATES OF AMERICACB W Auto Differential panel (Bld)on 10-72-5805Kguzdyvai (Bld) [#/Vol]0.03 10*3/uLNINF [facility] HospitalBasophils/100 WBC (Bld)0.6 %[facility] HospitalDifferential cell count method Nom (Bld)AutoCleveland ClinicEosinophils (Bld) [#/Vol]0.10 10*3/uL NINFCleveland ClinicEosinophils/100 WBC (Bld)2.0 %[facility] HospitalErythrocyte distribution width (RBC) [Ratio]12.2 %11.5 - 15.0 %[facility] HospitalHematocrit (Bld) [Volume fraction]43.3 %36.0 - 46.0 %[facility] HospitalHemoglobin (Bld) [Mass/Vol]14.0 g/dL11.5 - 15.5 g/dLBethesda North HospitalImmature granulocytes (Bld) [#/Vol]NINFCleveland Virginia HospitalImmature granulocytes/100 WBC (Bld)0.2 %[facility] HospitalLymphocytes (Bld) [#/Vol]1.59 10*3/uLBethesda North HospitalLymphocytes/100 WBC (Bld)32.6 %[facility]on HospitalH (RBC) [Entitic mass]30.3 pg26.0 - 34.0 pg [facility] HospitalHC (RBC) [Mass/Vol]32.3 g/dL30.5 - 36.0 g/dLBethesda North Hospital MCV (RBC) [Entitic vol]93.7 fL80.0 - 100.0 fLCleveland ClinicMonocytes (Bld) [#/Vol]0.49 10*3/uLNINFBethesda North HospitalMonocytes/100 WBC (Bld)10.0 %[facility] HospitalNeutrophils (Bld) [#/Vol]2.66 10*3/uLBethesda North HospitalNeutrophils/100 WBC (Bld)54.6 %[facility] HospitalNucleated RBC (Bld) [#/Vol]NINFClevelParkview Health Montpelier Hospital Nucleated RBC/100 WBC (Bld) [Ratio]0.0 %/100 WBCBethesda North HospitalPlatelet mean volume (Bld) [Entitic vol]10.2 fL9.0 - 12.7 fLCleveland ClinicPlatelets (Bld) [#/Vol]211 10*3/uLBethesda North HospitalRBC (Bld) [#/Vol]4.62 10*6/uL3.90 - 5.20 m/uL [facility] HospitalWBC (Bld) [#/Vol]4.88 10*3/uLCleveland Clinic Avon Hospital Basophils (Bld) [#/Vol]0.03 10*3/uLNormal<0.11CCenterville on above:Order Comment: Specimen Type: BLOOD SPECIMENOrdering Facility: [facility] Address:[address] [place] [address] Performed By: #### 95766-7 ####[facility] LABCLIA [id number] [place] [address] [place] Basophils/100 WBC (Bld)0.6 %NormalKettering Health Dayton on above: Order Comment: Specimen Type: BLOOD SPECIMENOrdering Facility: [facility] Address:[address] [place], [place] [address]Performed By: #### 83872- 8 ####[facility] LABCLIA [id number] [place] [address] [place] AMERICADifferential cell count method Nom (Bld)AutoNormalCCenterville on above:Order Comment: Specimen Type: BLOOD SPECIMENOrdering Facility: [facility] Address:[address] [place], [place] [address]Performed By: #### 95628-0 ####[facility] LABCLIA [id number] [place] [address] [place] AMERICAEosinophils (Bld) [#/Vol]0.10 10*3/uLNormal<0.46[facility] on above:Order Comment: Specimen Type: BLOOD SPECIMENOrdering Facility: [facility] Address:[address] [place], [place] [address]Performed By: #### 16713-5 ####[facility] LABCLIA [id number] [place] [id number] [place] AMERICAEosinophils/100 WBC (Bld)2.0 % NormalKettering Health Dayton on above:Order Comment: Specimen Type: BLOOD SPECIMENOrdering Facility: [facility] Address:[address] [place], [place] [address]Performed By: #### 01616-4 ####[facility] LABIA [id number] [place] [address] [place] AMERICAErythrocyte distribution width (RBC) [Ratio]12.2 %Normal 11.5-15.0[facility] on above:Order Comment: Specimen Type: BLOOD SPECIMENOrdering Facility: [facility] Address:[address] [place], [place] [address]Performed By: #### 35306-6 ####[facility] [id number] [place] [address] [place] AMERICAHematocrit (Bld) [Volume fraction]43.3 %Cwfotc13.0-46.0 [facility] on above:Order Comment: Specimen Type: BLOOD SPECIMENOrdering Facility: [facility] Address:[address] [place], [place] [address]Performed By: #### 40241-6 ####[facility] LABIA [id number] [place] [address] [place] AMERICAHemoglobin (Bld) [Mass/Vol]14.0 g/eZUhfuyt44.5-15.5CCenterville on above:Order Comment: Specimen Type: BLOOD SPECIMENOrdering Facility: [facility] Address:[address] [place], [place] [address]Performed By: #### 38166-6 ####[facility] LABIA [id number] [place] [address] [place] Immature granulocytes (Bld) [#/Vol]10*3/uLNormal<0.10[facility] Comment on above:Order Comment: Specimen Type: BLOOD SPECIMENOrdering Facility: [facility] Address:[address] [place] [address] Performed By: #### 42760-4 ####[facility] LABCLIA [id number] [place] [address] [place] Immature granulocytes/100 WBC (Bld)0.2 %NormalKettering Health Dayton on above:Order Comment: Specimen Type: BLOOD SPECIMENOrdering Facility: [facility] Address:[address] [place] [address] Performed By: #### 53078-4 ####[facility] OH[facility] LABIA [id number] [place] [address] [place] Lymphocytes (Bld) [#/Vol]1.59 10*3/uLNormal1.00-4.00[facility] Comment on above:Order Comment: Specimen Type: BLOOD SPECIMENOrdering Facility: [facility] Address:[address] [place] [address] Performed By: #### 08517-3 ####[facility] LABIA [id number] [place] [address] [place] Lymphocytes/100 WBC (Bld)32.6 %NormalKettering Health Dayton on above: Order Comment: Specimen Type: BLOOD SPECIMENOrdering Facility: [facility] Address:[address] [place], [place] [address]Performed By: #### 21497- 8 ####[facility] LABCLIA [id number] [place] [address] [place] AMERICAMCH (RBC) [Entitic mass]30.3 pg Dhcoql67.0-34.0[facility] on above:Order Comment: Specimen Type: BLOOD SPECIMENOrdering Facility: [facility] Address:[address] [place], [place] [address]Performed By: #### 61510-2 ####[facility] LABCLIA [id number] EUC[address] ST[address]ETMCHC (RBC) [Mass/Vol]32.3 g/dL Vkvdxm30.5-36.0[facility] on above:Order Comment: Specimen Type: BLOOD SPECIMENOrdering Facility: [facility] Address:[address] [place], [place] [address]Performed By: #### 56110-5 ####[facility] LABIA [id number] [address]ETV (RBC) [Entitic vol]93.7 fL Iktsyo53.0-100.0[facility] on above:Order Comment: Specimen Type: BLOOD SPECIMENOrdering Facility: [facility] Address:[address] [place], [place] [address]Performed By: #### 59853-1 ####[facility] LABIA [id number] [place] [address] [place] AMERICAMonocytes (Bld) [#/Vol]0.49 10*3/uLNormal<0.87[facility] on above:Order Comment: Specimen Type: BLOOD SPECIMENOrdering Facility: [facility] Address:[address] [place], [place] [address]Performed By: #### 28621-3 ####[facility] LABIA [id number] [place] [address] [place] AMERICAMonocytes/100 WBC (Bld)10.0 % NormalKettering Health Dayton on above:Order Comment: Specimen Type: BLOOD SPECIMENOrdering Facility: [facility] Address:[address] [place], [place] [address]Performed By: #### 13263-1 ####[facility] LABIA [id number] [place] [address] [place] AMERICANeutrophils (Bld) [#/Vol]2.66 10*3/uLNormal1.45-7.50[facility] on above:Order Comment: Specimen Type: BLOOD SPECIMENOrdering Facility: [facility] Address:[address] [place], [place] [address]Performed By: #### 74090-3 ####[facility] LABCLIA [id number] [place] [address] [place] AMERICANeutrophils/100 WBC (Bld)54.6 %NormalKeenan Private HospitalComment on above:Order Comment: Specimen Type: BLOOD SPECIMENOrdering Facility: [facility] Address:[address] [place] [address] Performed By: #### 82291-6 ####[facility] LABCLIA [id number] [place] [address] [place] Nucleated RBC (Bld) [#/Vol]10*3/uLNormal<0.01[facility] on above:Order Comment: Specimen Type: BLOOD SPECIMENOrdering Facility: [facility] Address:[address] [place] [address] Performed By: #### 63215-8 ####[facility] LABCLIA [id number] [place] [address] [place] Nucleated RBC/100 WBC (Bld) [Ratio]0.0 /100 WBCNormalCPeoples Hospital Comment on above:Order Comment: Specimen Type: BLOOD SPECIMENOrdering Facility: [facility] Address:[address] [place] [address] Performed By: #### 46623-5 ####[facility] LABCLIA [id number] [place] [address] [place] Platelet mean volume (Bld) [Entitic vol]10.2 fLNormal9.0-12.7CCenterville on above:Order Comment: Specimen Type: BLOOD SPECIMENOrdering Facility: [facility] Address:[address] [place], [place] [address]Performed By: #### 80587-3 ####[facility] LABCLIA [id number] [place] [address] [place] Platelets (Bld) [#/Vol]211 10*3/qNPmhtop050-687QrthdsdodKettering Health Dayton on above:Order Comment: Specimen Type: BLOOD SPECIMENOrdering Facility: [facility] Address:[address] [place] [address] Performed By: #### 80082-8 ####[facility] LABCLIA [id number] [place] [address] [place] RBC (Bld) [#/Vol]4.62 10*6/uLNormal3.90-5.20[facility] on above:Order Comment: Specimen Type: BLOOD SPECIMENOrdering Facility: [facility] Address:[address] [place], [place] [address]Performed By: #### 87698-8 ####[facility] LABIA [id number] [place] [address] [place] AMERICAWBC (Bld) [#/Vol]4.88 10*3/uLNormal3.70-11.00[facility] on above:Order Comment: Specimen Type: BLOOD SPECIMENOrdering Facility: [facility] Address:[address] [place], [place] [address]Performed By: #### 59488-9 ####[facility] LABCLIA [id number] [place] [address] [place] AMERICACONFIRM BLOOD TYPEon 11-15-2023 ABOONormalCCenterville on above:Order Comment: Specimen Type: BLOOD SPECIMEN [facility] Address: [address] [place], [place] [address]Performed By: #### CONABO #### [facility] CLIA [id number] [address] [place] [address] [place] AMERICARh Nom (Bld)PositiveNormal [facility] on above:Order Comment: Specimen Type: BLOOD SPECIMEN [facility] Address: [address] [place], [place] [address]Performed By: #### CONABO #### [facility] CLIA [id number] [address] [place], [place] [address] [place] AMERICAComprehensive metabolic 2000 panelon 06-35-3262Nxuaxgt [Mass/Vol]4.3 g/dLNormal3.9-4.9CCenterville on above:Order Comment: Specimen Type: BLOOD SPECIMEN [facility] Address: [address] [place], [place] [address]Performed By: #### 63479-7, 2276-4, 64507-6 #### [facility] CLIA [id number] [address] [place] [address] [place] AMERICAALP [Catalytic activity/Vol] 116 U/LKjkdim90-875EilujcbekKettering Health Dayton on above:Order Comment: Specimen Type: BLOOD SPECIMEN [facility] Address: [address] [place], [place] [address]Performed By: #### 18087-1, 2275-, 84915-2 #### [facility] CLIA [id number] [address] [place] [address] [place] AMERICAALT [Catalytic activity/Vol] 45 U/LHigh7-38[facility] on above:Order Comment: Specimen Type: BLOOD SPECIMEN [facility] Address: [address] [place], [place] [address]Performed By: #### 83666-0, 2275-10, 32132-8 #### [facility] CLIA [id number] [address] [place], [place] [address] [place] AMERICAAnion gap [Moles/Vol]10 mmol/LNormal9-18[facility] on above:Order Comment: Specimen Type: BLOOD SPECIMEN [facility] Address: [address] [place], [place] [address]Performed By: #### 33102-6, 2276-4, 68312-4 #### [facility] CLIA [id number] [address] [place] [address] [place] AMERICAAST [Catalytic activity/Vol] 50 U/NGtny45-09GavbtpejgKettering Health Dayton on above:Order Comment: Specimen Type: BLOOD SPECIMEN [facility] Address: [address] [place], [place] [address]Performed By: #### 75712-2, 6-4, 18611-4 #### [facility] CLIA [id number] [address] [place] [address] [place] AMERICABilirubin [Mass/Vol]0.3 mg/dLNormal0.2-1.3CCent[place] on above:Order Comment: Specimen Type: BLOOD SPECIMEN [facility] Address: [address] [place], [place] [address]Performed By: #### 49391-0, 6-4, 10404-8 #### [facility] CLIA [id number] [address] [place] [address] STATES OF AMERICACalcium [Mass/Vol]9.9 mg/dL Normal8.5-10.2CC[place] on above:Order Comment: Specimen Type: BLOOD SPECIMEN [facility] Address: [address] [place], [place] [address]Performed By: #### 28803-1, 6-4, 22919-7 #### [facility] CLIA [id number] [address] [place] [address] [place] AMERICAChloride [Moles/Vol]105 mmol/FEjxzjb11-815UjjqjpzivKettering Health [facility] on above:Order Comment: Specimen Type: BLOOD SPECIMEN [facility] Address: [address] [place], [place] [address]Performed By: #### 63399-3, 2275-10, #### [facility] CLIA [id number] [address] [place] [address] [place] AMERICACO2 [Moles/Vol]27 mmol/L Rbmnbd56-96DrlywulxcKettering Health Dayton on above:Order Comment: Specimen Type: BLOOD SPECIMEN [facility] Address: [address] [place], [place] [address]Performed By: #### 10830-8, 2275-10, #### [facility] CLIA [id number] [address] [place] [address] [place] AMERICACreatinine [Mass/Vol]1.08 mg/dLHigh0.58-0.96[facility] on above:Order Comment: Specimen Type: BLOOD SPECIMEN [facility] Address: [address] [place], [place] [address]Performed By: #### 80735-6, 2275-10, #### [facility] IA [id number] [address] [place] [address] [place] AMERICACreatinine and Glomerular filtration rate.predicted panel (S/P/Bld)54 mL/min/1.73m???Low>=60[facility] on above:Order Comment: Specimen Type: BLOOD SPECIMEN [facility] Address: [address] [place], [place] [address]Result Comment: Estimated Glomerular Filtration Rate (eGFR) is calculated using the 2020 CKD-EPI cre atinine equation. This equation utilizes serum creatinine, sex, and age as parameters. The creatinine assay has traceable calibration to isotope dilution- mass spectrometry. Refer to KDIGO guidelines for clinical interpretation. In patients with unstable renal function, e.g. those with acute kidney injury, the eGFR may not accurately reflect actual GFR.Performed By: #### 80730-2, 4, 52019-9 #### [facility] CLIA [id number] [address] [place] [address] [place] AMERICAGlucose [Mass/Vol]112 mg/dL Vcxv45-39IflghwnrqKettering Health Dayton on above:Order Comment: Specimen Type: BLOOD SPECIMEN [facility] Address: [address] [place], [place] [address]Result Comment: The [place] Diabetes Association (ADA) provides guidance for cutoff [...] Standards of Medical Care in Diabetes 2016, [place] [employer] Association. Diabetes Care. 2016.39(Suppl 1).Performed By: #### 18050-2, 2275-, 27929-7 #### [facility] CLIA [id number] [address] [place] [address] [place] AMERICAPotassium [Moles/Vol]5.1 mmol/LNormal3.7-5.1CCent[place] on above:Order Comment: Specimen Type: BLOOD SPECIMEN [facility] Address: [address] [place], [place] [address]Performed By: #### 12011-8, 2275-10, 36872-0 #### [facility] CLIA [id number] [address] [place] [address] [place] AMERICAProtein [Mass/Vol]7.7 g/dL Normal6.3-8.0[facility] on above:Order Comment: Specimen Type: BLOOD SPECIMEN [facility] Address: [address] [place], [place] [address]Performed By: #### 84205-1, 2275-10, #### [facility] CLIA [id number] [address] [place] [address] [place] AMERICASodium [Moles/Vol]142 mmol/L Gvcuku670-887HqqizwkozKettering Health Dayton on above:Order Comment: Specimen Type: BLOOD SPECIMEN [facility] Address: [address] [place], [place] [address]Performed By: #### 19632-2, 2276-4, 43000-8 #### [facility] CLIA [id number] [address] [place] [address] [place] AMERICAUrea nitrogen [Mass/Vol]15 mg/dLNormal7-21[facility] on above:Order Comment: Specimen Type: BLOOD SPECIMEN [facility] Address: [address] [place], [place] [address]Performed By: #### 98045-2, 2276-4, 21100-1 #### [facility] IA [id number] [address] [place] [address] [place] AMERICAECG COMPLETEon 85-39-2536NXB COMPLETEVentricular Rate : 62 BPM Atrial Rate : 62 BPM P-R Interval : 154 ms QRS Duration : 72 ms Q-T Interval : 392 ms QTC Calculation(Bazett) : 397 ms Calculated P Leoti : 47 degrees Calculated R Leoti : 24 degrees Calculated T Leoti : 40 degrees NORMAL SINUS RHYTHM LOW VOLTAGE QRS, CONSIDER PULMONARY DISEASE, PERICARDIAL EFFUSION, OR NORMAL VARIANT BORDERLINE ECG Confirmed by DEBBI MANN MD ([id number]) on 12/01/2023 10:51:09 AM NAME : CHRISTIAN NOYOLA PID : [id number] : 1950 Gender : Female Race : ORD : [id number] Procedure Date : Nov 15 2023 13:16:26 [...] By : JORGE DESAI Acquired by : vs,NormalKeenan Private HospitalFerritin SerPl-mCncon 26-94-3965Zdcmmugr [Mass/Vol]431.0 ng/cZWraq52.7-205.1CPeoples Hospital Comment on above:Order Comment: Specimen Type: BLOOD SPECIMEN [facility] Address: [address] [place], [place] [address]Performed By: #### 53443-1, 2276-4, 53123-5 #### [facility] CLIA [id number] [address] [place] [address] [address] STREETHISTORY PHYSICALon 01-91-9320HMDMEIL PHYSICALHNO ID: [id number] Author: GEORGETTE SANTOS APRN.CHILD AND FAMILY SERVICES WORKER Service: ? Author Type: Nurse Practitioner Type: [...] 35 kg/m2 Non-male patient STOP-Bang Score: 3 FWS2CK6-HQWb Score: Age: 65-74 Sex: female CHF history: No Hypertension history: Yes Stroke/TIA/thromboembolism history: No Vascular disease history: No Diabetes history: No GFF5IE0-LMQe Score: 3 ARISCAT Score: Age: 51-80 Preoperative [...] Eaton present: no Lip Bite Test: II Microretrognathia/Micronagthia/Recessed Chin: No DENTAL Dental findings: teeth intact. [...] RFA. Reports discontinuing ph (more content not included)...NormalKeenan Private HospitalIron and Iron binding capacity panelon 21-89-1540Wxft [Mass/Vol] 71 ug/hHPujvft24-331JcscllwhaKettering Health [facility] on above:Order Comment: Specimen Type: BLOOD SPECIMEN [facility] Address: [address] [place], [place] [address]Performed By: #### 69706-0, 2275-10, #### [facility] CLIA [id number] [address] [place] [address] STATES OF AMERICAIron binding capacity [Mass/Vol]256 ug/bTVzdhqc227-035JbexbjzzdKettering Health [facility] on above:Order Comment: Specimen Type: BLOOD SPECIMEN [facility] Address: [address] [place], [place] [address]Performed By: #### 27063-3, 2275-10, #### [facility] CLIA [id number] [address] [place] [address] [place] AMERICAIron/TIBC [Molar ratio]27.7 %Ravkxq55.0-57.0[facility] on above:Order Comment: Specimen Type: BLOOD SPECIMEN [facility] Address: [address] [place], [place] [address]Performed By: #### 96133-5, 2276-4, 70122-0 #### [facility] CLIA [id number] [address] [place] [address] [place] AMERICATYPE AND SCREEN,30 DAYon 27-45-8864XCWGJrobsqQeihznpjvCenterville on above:Order Comment: Specimen Type: BLOOD SPECIMEN [facility] Address: [address] [place], [place] [address]Performed By: #### [id number] #### [facility] CLIA [id number] [address] [place] [address] [place] AMERICAHISTORICAL AB SCR STATUS NegativeNormalCCenterville on above:Order Comment: Specimen Type: BLOOD SPECIMEN [facility] Address: [address] [place], [place] [address]Performed By: #### [id number] #### [facility] CLIA [id number] [address] [place] [address] [place] AMERICARh Nom (Bld)PositiveNormal [facility] on above:Order Comment: Specimen Type: BLOOD SPECIMEN [facility] Address: [address] [place], [place] [address]Performed By: #### [id number] #### [facility] CLIA [id number] [address] [place], [place] [address] [place] AMERICAURINALYSIS, REFLEX MICROSCOPICon 62-68-0017Mzjtvsaet Ql (U)NegativeNormalNegativeKettering Health Dayton on above:Order Comment: Specimen Type: URINE SPECIMEN [facility] Address: [address] [place], [place] [address]Performed By: #### [id number] #### [facility] CLIA [id number] [address] [place] [address] [place] AMERICAClarity (Unsp spec)Clear NormalRegency Hospital CompanyarCCenterville on above:Order Comment: Specimen Type: URINE SPECIMEN [facility] Address: [address] [place], [place] [address]Performed By: #### [id number] #### [facility] CLIA [id number] [address] [place], [place] [address] [place] AMERICAColor (U)YellowNormalYellow [facility] on above:Order Comment: Specimen Type: URINE SPECIMEN [facility] Address: [address] [place], [place] [address]Performed By: #### [id number] #### [facility] CLIA [id number] [address] [place], [place] [address] [place] AMERICAGlucose Test strip (U) [Mass/Vol]NegativeNormalNegativeKettering Health Dayton on above:Order Comment: Specimen Type: URINE SPECIMEN [facility] Address: [address] [place], [place] [address]Performed By: #### [id number] #### [facility] CLIA [id number] [address] [place] [address] [place] AMERICAHemoglobin Ql (U)Negative NormalNegativeKettering Health Dayton on above:Order Comment: Specimen Type: URINE SPECIMEN [facility] Address: [address] [place], [place] [address]Performed By: #### [id number] #### [facility] CLIA [id number] [address] [place], [place] [address] [place] AMERICAKetones Ql (U)NegativeNormal NegativeKettering Health Dayton on above:Order Comment: Specimen Type: URINE SPECIMEN [facility] Address: [address] [place], [place] [address]Performed By: #### [id number] #### [facility] CLIA [id number] [address] [place] [address] [place] AMERICALeukocyte esterase Test strip Ql (U)NegativeNormalNegativeKettering Health [facility] on above: Order Comment: Specimen Type: URINE SPECIMEN [facility] Address: [address] [place], [place] [address]Performed By: #### [id number] #### [facility] CLIA [id number] [address] [place] [address] STATES OF AMERICANitrite Ql (U)NegativeNormal NegativeKettering Health Dayton on above:Order Comment: Specimen Type: URINE SPECIMEN [facility] Address: [address] [place], [place] [address]Performed By: #### [id number] #### [facility] CLIA [id number] [address] [place] [address] [place] AMERICApH (U)6.5 [pH]Normal<8.5 [facility] on above:Order Comment: Specimen Type: URINE SPECIMEN [facility] Address: [address] [place], [place] [address]Performed By: #### [id number] #### [facility] CLIA [id number] [address] [place] [address] [place] AMERICAProtein (U) [Mass/Vol] NegativeNormalNegativeKettering Health Dayton on above:Order Comment: Specimen Type: URINE SPECIMEN [facility] Address: [address] [place], [place] [address]Performed By: #### [id number] #### [facility] CLIA [id number] [address] STREETSpecific gravity (U) [Rel density]1.443Vdvovd0.005-1.030[facility] on above:Order Comment: Specimen Type: URINE SPECIMEN [facility] Address: [address] [place], [place] [address]Performed By: #### [id number] #### [facility] CLIA [id number] [address] [place], [place] [address]Urobilinogen Ql (U)0.2 EU/dL Normal0.2-1.0 EU/dLKettering Health Dayton on above:Order Comment: Specimen Type: URINE SPECIMEN [facility] Address: [address] [place], [place] [address]Performed By: #### [id number] #### [facility] CLIA [id number] [address] [place], [place] [address]CNPNon [id number] Telephone (NIQ) CHRISTIAN NOYOLA ([id number]) 1950 F Date Time Provider Department 09/05/23 JORGE DESAI During your visit today, we recorded the following information about you: Tanya Sahni 09/05/2023 9:32 AM Signed Patient called to speak with Dr Desai's nurse. She would like to accept a surgery date of MondayDecember 14. She will wait for it to show up on her MyChart. Debbi Brizuela, ABBY 09/05/2023 9:49 AM Signed Surgery date moved [...] (None) Encounter Status:Closed by DEBBI BRIZUELA on 09/05/23[facility] [id number] Visit (NSFRVW) CHRISTIAN NOYOLA ([id number]) 1950 F Date Time Provider Department 09/04/23 1:40 PM [facility] During your visit today, we recorded the following information about you: Pulse Blood pressure Weight Height 70/minute 149/89 87.8 kg 1.626 m Jorge Desai MD 09/04/2023 7:00 PM Signed SPINE SURGERY ESTABLISHED This is an in-person visit. DATE OF SERVICE: 09/04/2023 DATE OF LAST VISIT: 09/05/2022 SUBJECTIVE: HPI:Christian Lowery Jazmín is a 73 year old female presenting [...] 5 4 Pain Location: Leg-Right Back Description: Pressure;Radiating;Sore;Tightness Sore;Radiating;Other: See comment Duration Units: Hours -- [...] relief It has been (more content not included)...[facility] STEFAN CADon [id number] MAMM SCREEN 3D STEFAN CADPatient: CHRISTIAN NOYOLA Exam Date: 07/27/2022 : 1950 Gender:F Ordering : DR JORDAN AVITIA D.O. Admission #: [id number] Family : Order #: [id number] CLICK HERE TO VIEW EXAM RADIOLOGY REPORT [...] breast cancer at age 47. LOCATION: [facility] BREAST COMPOSITION: Heterogeneously dense,which may obscure small [...] by: Emily Snow MD on 07/27/2022 at 13:38[facility] WO CONon [id number] LSPINE WO CONEXAMINATION: MRI [facility] CON HISTORY: Degeneration of lumbar [...] Electronically authenticated by: BONNY SHORE Date: 2022-06-03 11:34[facility] Without Differentialon [id number] distribution width (RBC) [Ratio]12.9 %Vnanvb45.9-15.3FParkview HealthComment on above:Performed By: #### CBCNOOUTREACH, OUTREACH LIPID, OUTREACH CMP #### [facility] [address] [id number] USAHematocrit (Bld) [Volume fraction]42.4 %Mbvnrg90.0-46.4 [facility] PrebleComment on above:Performed By: #### CBCNOOUTREACH, OUTREACH LIPID, OUTREACH CMP #### [facility] [address] [place] [address] USAHemoglobin (Bld) [Mass/Vol]14.9 g/uOPbsxto93.8-15.4 [facility] PrebleComment on above:Performed By: #### CBCNOOUTREACH, OUTREACH LIPID, OUTREACH CMP #### [facility] [address]H (RBC) [Entitic mass]31.9 ozXggzan38.7-34.3FParkview HealthComment on above:Performed By: #### CBCNOOUTREACH, OUTREACH LIPID, OUTREACH CMP #### [place] [address] USAMCV (RBC) [Entitic vol]90.9 fIEvfima38-801FepyflkcwKettering Health PrebleComment on above:Performed By: #### CBCNOOUTREACH, OUTREACH LIPID, OUTREACH CMP #### [place] [address] USAMean Corpuscular HGB Conc35.1 g/fHZqbg68.0-35.0[facility] PrebleComment on above:Performed By: #### CBCNOOUTREACH, OUTREACH LIPID, OUTREACH CMP #### [place] [address] USAPlatelet mean volume (Bld) [Entitic vol]8.4 fLNormal 6.3-10.7FParkview HealthComment on above:Result Comment: PERFORMED BY: [place] [address] PATHOLOGIST STONE CLEANER RANDY STEEL M.D.Performed By: #### CBCNOOUTREACH, OUTREACH LIPID, OUTREACH CMP #### [place] [address] USAPlatelets (Bld) [#/Vol]175 10*3/jNCbuabb881-012UtypxsfklKettering Health PrebleComment on above:Performed By: #### CBCNOOUTREACH, OUTREACH LIPID, OUTREACH CMP #### [place] [address] USARBC (Bld) [#/Vol]4.66 10*6/uLNormal3.60-5.00[facility] Health PrebleComment on above:Performed By: #### CBCNOOUTREACH, OUTREACH LIPID, OUTREACH CMP #### [place] [address] USAWBC (Bld) [#/Vol]5.2 10*3/uLNormal3.8-11.6FParkview HealthComment on above:Performed By: #### CBCNOOUTREACH, OUTREACH LIPID, OUTREACH CMP #### [facility] [address] [place] [address] USACMP Outreachon 55-16-0142Aqkghzd [Mass/Vol]4.0 g/dLNormal 3.2-5.5FParkview HealthComment on above:Performed By: #### CBCNOOUTREACH, OUTREACH LIPID, OUTREACH CMP #### [facility] [address] [place], [place] [id number] USAALP [Catalytic activity/Vol]86 U/UFgbqds26-84GijsaohpuKettering Health PrebleComment on above:Performed By: #### CBCNOOUTREACH, OUTREACH LIPID, OUTREACH CMP #### [facility] [address] [place] [address] USAALT [Catalytic activity/Vol]38 U/IKgpsug30-54WcrsomswfKettering Health PrebleComment on above:Performed By: #### CBCNOOUTREACH, OUTREACH LIPID, OUTREACH CMP #### [facility] [address] [place], [place] [id number] USAAST [Catalytic activity/Vol]31 U/CDrnzqy88-11QjrmbeamoKettering Health PrebleComment on above:Performed By: #### CBCNOOUTREACH, OUTREACH LIPID, OUTREACH CMP #### [facility] [address] [place], [place] [id number] USABilirubin [Mass/Vol]0.6 mg/dLNormal0.3-1.2FParkview HealthComment on above:Performed By: #### CBCNOOUTREACH, OUTREACH LIPID, OUTREACH CMP #### [facility] [address] [place], [place] [address] USACalcium [Mass/Vol]9.6 mg/dLNormal8.2-10.2FParkview HealthComment on above:Performed By: #### CBCNOOUTREACH, OUTREACH LIPID, OUTREACH CMP #### [facility] [address] [place], [place] [address] USAChloride [Moles/Vol]105 mmol/QEcokwa84-666RtpbnxiplKettering Health PrebleComment on above:Performed By: #### CBCNOOUTREACH, OUTREACH LIPID, OUTREACH CMP #### [facility] [address] [place] [address] USACO2 [Moles/Vol]26.3 mmol/TSwphiw54.0-30.0[facility] Health PrebleComment on above:Performed By: #### CBCNOOUTREACH, OUTREACH LIPID, OUTREACH CMP #### [facility] [address] [place] [address] USACreatinine [Mass/Vol]1.03 mg/dLNormal0.44-1.03[facility] Health PrebleComment on above:Performed By: #### CBCNOOUTREACH, OUTREACH LIPID, OUTREACH CMP #### [facility] [address] [place] [address] USAEstimated GFR ( [place]> 60NoMiddletown HospitalComment on above:Result Comment: GFR estimated reference range: According to KDOQI guidelines, <60 ml/min/1.73m2 is sufficient to diagnose a patient with chronic kidney disease.Performed By: #### CBCNOOUTREACH, OUTREACH LIPID, OUTREACH CMP #### [facility] [address] [place] [address] USAEstimated GFR (Non- Lc75WkgynpJozdhwfvvMiddletown HospitalComment on above:Performed By: #### CBCNOOUTREACH, OUTREACH LIPID, OUTREACH CMP #### [facility] [address] [place] [address] USAGlucose [Mass/Vol]94 mg/oBXvawpz85-898XuzfehhkyKettering Health PrebleComment on above:Result Comment: Random Glucose Reference Range is dependent on time and content of last meal. Glucose of more than 200 mg/dL in a nonstressed, ambulatory subject supports the diagnosis of Diabetes Mellitus. ADA recommended reference rangePerformed By: #### CBCNOOUTREACH, OUTREACH LIPID, OUTREACH CMP #### [facility] [address] [place] [address] USAPotassium [Moles/Vol]4.4 mmol/LNormal3.5-5.1FParkview HealthComment on above:Performed By: #### CBCNOOUTREACH, OUTREACH LIPID, OUTREACH CMP #### [facility] [address] [place] [address] USAProtein [Mass/Vol]7.0 g/dLNormal6.1-7.9[facility] PrebleComment on above:Performed By: #### CBCNOOUTREACH, OUTREACH LIPID, OUTREACH CMP #### [facility] [address] [place] [address] USASodium [Moles/Vol]141 mmol/GZsdgxm260-123KfhyfpwckKettering Health PrebleComment on above:Performed By: #### CBCNOOUTREACH, OUTREACH LIPID, OUTREACH CMP #### [facility] [address] [place] [address] USAUrea nitrogen [Mass/Vol]12 mg/dLNormal9-23K[facility] Health PrebleComment on above:Performed By: #### CBCNOOUTREACH, OUTREACH LIPID, OUTREACH CMP #### [facility] [address] [place] [address] USALipid Profile Outreachon 60-98-4399Urciiefhrjc [Mass/Vol] 336 mg/aVGfeq299-159LscdsbzgsKettering Health PrebleComment on above:Result Comment: Chol less than 200 mg/dl low risk Chol 201-239 mg/dl borderline risk Chol 240 mg/dl and greater high riskPerformed By: #### CBCNOOUTREACH, OUTREACH LIPID, OUTREACH CMP #### [facility] [address] [id number] USACholesterol in HDL [Mass/Vol]48 mg/rFTkqani49-28TzpwoirxbKettering Health PrebleComment on above:Result Comment: HDL CHOL ATP-III CLASSIFICATION Cardiovascular Risk HDL > or equal to 60 mg/dL LOW HDL < 40 mg/dL HIGHPerformed By: #### CBCNOOUTREACH, OUTREACH LIPID, OUTREACH CMP #### [facility] [address] [id number] USACholesterol.total/Cholesterol in HDL [Mass ratio]7.0 {ratio}Normal<5.0K[facility] Health PrebleComment on above:Result Comment: PERFORMED BY: [place] [address] PATHOLOGIST STONE CLEANER RANDY STEEL M.D.Performed By: #### CBCNOOUTREACH, OUTREACH LIPID, OUTREACH CMP #### [facility] [address] [place] [address] USALDL Cholesterol,Sttvigxnjv094 mg/dLHigh0-100[facility] Health PrebleComment on above:Result Comment: LDL ATP III CLASSIFICATION LDL less than 100 mg/dL Optimal LDL 100-129 mg/dL Near or above optimal LDL 130-159 mg/dL Borderline high LDL 160-189 mg/dL High LDL greater than 189 mg/dL Very highPerformed By: #### CBCNOOUTREACH, OUTREACH LIPID, OUTREACH CMP #### [facility] [address] [place] [address] USATriglyceride w/Exghgm200 mg/vJZctj22-599FbwtfmyfqKettering Health PrebleComment on above:Result Comment: TRIG ATP III CLASSIFICATION TRIG less than 150 mg/dL Normal TRIG 150-199 mg/dL Borderline high TRIG 200-500 mg/dL High TRIG greater than 500 mg/dL Very high Standard traceable to the Center for Disease Conrtrol and Prevention (CDC) test method.Performed By: #### CBCNOOUTREACH, OUTREACH LIPID, OUTREACH CMP #### [facility] [address] [place] [address] USAVLDL EESJBEYCSEV61 mg/dLNormOur Lady of Mercy Hospital - AndersonComment on above:Performed By: #### CBCNOOUTREACH, OUTREACH LIPID, OUTREACH CMP #### [facility] [address] [id number] [place] Vital Signs Date TimeVital SignValuePerforming SdqucedmaQyqqoemb62-81-3695 14:050400Body fexics128.1 cmBenjamin Ball DO Work Phone: [facility]08-05-2025 14:05-0400 Body mass index (BMI) [Ratio]31.6 kg/c2Hzxtthtf Ball DO Work Phone: [facility]08-05-2025 14:05-0400 Body mjvmoa94.18 kgBenjamin Ball DO Work Phone: [facility]08-05-2025 14:05-0400 Diastolic blood erjjmqsg07 mm[Hg]Jordan Ball DO Work Phone: [facility]08-05-2025 14:05-0400 Heart rate76 /minBenjamin Ball DO Work Phone: [facility]08-05-2025 14:05-0400 Respiratory rate16 /minBenjamin Ball DO Work Phone: [facility]08-05-2025 14:05-0400 SaO2% (BldA) [Mass fraction]97 %Jordan Ball DO Work Phone: [facility]08-05-2025 14:05-0400 Systolic blood wsocmrau905 mm[Hg]Jordan Ball DO Work Phone: [facility]11-05-2024 12:15-0500 Body ciusjc452.[address]11-05-2024 12:15-0500Body mass index (BMI) [Ratio]32.61 kg/m2Pm[address]11-05-2024 12:15-0500 Body bnvvef68.[address] [place], [place] [address]2011-05-2024 08:50-0500Body height 165.1 cmNew[facility] Angela DO Work Phone: [facility] HospitalIgojswzpsb57-74-7722 08:50-0500Body mass index (BMI) [Ratio]31.62 kg/r7Mjqgb Angela DO Work Phone: [facility] HospitalGpnriwaywd84-21-4721 08:50-0500Body flutws24.18 kgNew[facility] Angela DO Work Phone: [facility] HospitalGllexnfoca97-66-2981 10:00-0400Body bloesc615.1 cmKettering Health Preble10-29-2024 10:00-0400Body mass index (BMI) [Ratio]32.3 kg/d9EcbzqbvspKettering Health Preble10-29-2024 10:00-0400Body .99 kgKettering Health Preble10-29-2024 10:00-0400Diastolic blood ixeywufr74 mm[Hg][facility]10-29-2024 10:00-0400 Heart rate59 /[facility]10-29-2024 10:00-0400 Respiratory rate12 /[facility]10-29-2024 10:00-0400 Systolic blood pdtoctny904 mm[Hg][facility]08-01-2024 11:15-0400Body msactz323.1 cmKettering Health [facility]ble08-01-2024 11:15-0400Body mass index (BMI) [Ratio]31.8 kg/v5OrqvmgqgsKettering Health Preble08-01-2024 11:15-0400Body qpcdbo00.69 kgK[facility]tering Health [facility] 02-08-2024 11:15-0400Heart rate68 /[facility] 02-08-2024 11:15-0400Respiratory rate12 /[facility] 12-28-2023 12:42-0400Body xvopaw414.6 cmLitzy Todd GEOINT ANALYST.CHILD AND FAMILY SERVICES WORKER Work Phone: [phone] Health Atrium Medical CenterPucyjw69-48-2298 12:42-0400Body mass index (BMI) [Ratio]33.03 kg/x6VytakwcLitzy Todd GEOINT ANALYST.CHILD AND FAMILY SERVICES WORKER Work Phone: [phone] Health Atrium Medical CenterPbvjkr82-02-7878 12:42-0400Body qyphti89.27 kgLitzy Todd GEOINT ANALYST.CHILD AND FAMILY SERVICES WORKER Work Phone: [place] Tnqlbs30-18-2700 12:42-0400Diastolic blood njyarddw48 mm[Hg]Litzy Todd GEOINT ANALYST.CHILD AND FAMILY SERVICES WORKER Work Phone: [place] Seylri06-01-3202 12:42-0400Heart rate78 /min Litzy Todd GEOINT ANALYST.CHILD AND FAMILY SERVICES WORKER Work Phone: [place] Cvsroq43-66-1862 12:42-8960MoZ3% (BldA) [Mass fraction]95 %Litzy Todd GEOINT ANALYST.CHILD AND FAMILY SERVICES WORKER Work Phone: [place] Nmltqv63-56-1359 12:42-0400Systolic blood gdcoobel207 mm[Hg]Litzy Todd GEOINT ANALYST.CHILD AND FAMILY SERVICES WORKER Work Phone: [phone] Health Montpelier HospitalFtizsc67-01-8099 13:02-0400Body ujrhbl148.6 cmPacc 2 Work Phone: [facility]05-08-2024 13:02-0400Body mass index (BMI) [Ratio]33.07 kg/m2Pacc 2 Work Phone: [phone]05-08-2024 13:02-0400Body temperature 97.2 [degF]Pacc 2 Work Phone: [phone]05-08-2024 13:02-0400Body krgeiv46.4 kgPacc 2 Work Phone: [phone]05-08-2024 13:02-0400Diastolic blood mm[Hg]Pacc 2 Work Phone: [phone]05-08-2024 13:02-0400Heart rate91 /min Pacc 2 Work Phone: [phone]05-08-2024 13:02-0400Respiratory rate 14 /minPacc 2 Work Phone: [phone]05-08-2024 13:02-2637HiY6% (BldA) [Mass fraction]100 %Pacc 2 Work Phone: [phone]05-08-2024 13:02-0400Systolic blood wggjvuso089 mm[Hg]Pacc 2 Work Phone: [phone]11-02-2023 11:00-0400Body ffovqz228.1 cmBenjamin Ball Other [place] [employer] Other 881153-08-3383 11:00-0400Body mass index (BMI) [Ratio] 32.41 kg/q7Ohvmxphe Ball Other [employer] Other 11-02-2023 11:00-0400Body dfzguw40.36 kgBenjamin Ball Other [employer] Other 11-02-2023 11:00-0400Diastolic blood eeyrcoms94 mm[Hg] Jordan Ball Other [employer] Other 11-02-2023 11:00-0400Respiratory rate12 /minBenjamin Ball Other [employer] Other 11-02-2023 11:00-0400Systolic blood ohgicrfr657 mm[Hg] Jordan Ball Other [employer] Other 08-10-2023 13:53-0400Body jasecm607.1 cmBenjamin Ball Other [facility] [employer] Other 08-10-2023 13:53-0400Diastolic blood cfkcmdmu21 mm[Hg] Jordan Ball Other [employer] Other 08-10-2023 13:53-0400Systolic blood vuxgvfuh241 mm[Hg] Jordan Ball Other [employer] Other 02-27-2023 12:34-0500Body .6 cmJorge Desai MD Work Phone: [place] Hrnwfg32-77-9408 12:34-0500Body temperature 97.59 [degF]Jorge Desai MD Work Phone: [place] Bvrpvo84-17-0118 12:34-0500Body wrqdxe95.91 kgJorge Desai MD Work Phone: [place] Grlapb48-76-7198 12:34-0500Diastolic blood crecsmoh84 mm[Hg]Jorge Desai MD Work Phone: [place] Lkejfh36-52-0961 12:34-0500Heart rate67 /min Jorge Desai MD Work Phone: [place] Syzkxw86-97-6729 12:34-0500Respiratory rate 20 /minJorge Desia MD Work Phone: [phone] Fgpnpd76-11-0450 12:34-4118HfP2% (BldA) [Mass fraction]98 %Jorge Desai MD Work Phone: [phone] Frcoqu85-45-2438 12:34-0500Systolic blood dehbjmus256 mm[Hg]Jorge Desai MD Work Phone: [place] [facility] Encounters Encounter DateEncounter TypeCare ProviderFacilityStart: 04-16-2025 End: 66-72-7422Csqzug flowsheetJr. Katerina Olguin DO Work Phone: [facility] [facility]icsStart: 04-16-2025 End: 19-24-3249Fbqvnn flowsheetJr. Katerina Olguin DO Work Phone: [facility]opaedicsStart: 04-16-2025 End: 34-44-3155Lqtwqj outpatient visit 25 minutesJr. Katerina Olguin DO Work Phone: [facility] OrthopaedicsComment on above:Trigger finger of left thumb (Primary Dx); Pain of left thumbStart: 04-16-2025 End: 63-22-7437sokoshzvhvSM., KATERINA OLGUINNot AvailableStart: 04-07-2025 End: 03-72-3414Adlwba flowsheetNicole HERNANDEZ Work Phone: [facility]opaedicsStart: 04-07-2025 End: 94-62-8226Xupyys flowsheetNicole HERNANDEZ Work Phone: [facility] OrthopaedicsStart: 04-07-2025 End: 78-52-1064Ebdsit outpatient visit 15 minutesMatthilda Mitchell PA Work Phone: [facility] OrthopaedicsComment on above:Thumb pain, left (Primary Dx); Trigger finger of left thumbStart: 04-07-2025 End: 55-85-4131utrnghugjxVUNEDXY J MEYERNot AvailableStart: 02-11-2025 End: 30-05-7661cyszabfkoaXhwjtvfm Ball DO Work Phone: [facility] Work Phone: Start: 02-11-2025 End: 71-11-4649Qihjhkx encounter procedureBenjamin Ball DO-[facility] Work Phone: Start: 06-17-2024 End: 26-63-7790Kkdass flowsheetMaria B Apling TRANSPORTATION JOB [employer]LES Work Phone: [facility] ORTHOPAEDICSStart: 06-17-2024 End: 41-52-2980Tcyikd flowsheetMaria B Apling TRANSPORTATION JOB [employer]ITLES Work Phone: [facility] ORTHOPAEDICSStart: 06-17-2024 End: 20-62-7837Stzgjs follow up visit related to original pxMaria B Apling TRANSPORTATION JOB TITLES Work Phone: [facility] ORTHOPAEDICSComment on above:S/P trigger finger release (Primary Dx); Carpal tunnel syndrome of right wristStart: 06-17-2024 End: 13-15-5282ktkqfnbmxwCRZSU B APLINGNot AvailableStart: 05-22-2024 End: 04-48-3805Zfcnpj flowsheetMaria B Apling TRANSPORTATION [employer]LES Work Phone: [facility] ORTHOPAEDICSStart: 05-22-2024 End: 22-70-7551Jfpdps flowsheetMaria B Apling TRANSPORTATION [employer]LES Work Phone: [facility] ORTHOPAEDICSStart: 05-22-2024 End: 94-79-2020Nlttlu follow up visit related to original pxMaria B Apling TRANSPORTATION [employer]OB [employer]ITLES Work Phone: [facility] ORTHOPAEDICSComment on above:S/P trigger finger release (Primary Dx)Start: 05-22-2024 End: 20-39-9244uzsqbsgeloKAYXT B APLINGNot AvailableStart: 05-15-2024 End: 00-78-5094Hpghvicrqx and management of inpatientBENJAMYMICHIGAN MEDICAL CENTER GLADWIN E BALLProMedica Arlington HospitalStart: 05-14-2024 End: 72-72-2957Ugypju outpatient visit 15 minutesRossana Miller DO Work Phone: [facility] ORTHOPAEDICSComment on above:Pain of right thumb (Primary Dx); Trigger finger of right thumbStart: 05-14-2024 End: 51-03-9662PupzngThifa T Olsen TRANSPORTATION JOB TITLES Work Phone: n[facility] FB ORTHOPAEDICSComment on above:Trigger finger of right thumb (Primary Dx)Start: 05-13-2024 End: 74-64-6496Dorpny flowsheetMaria B Apling TRANSPORTATION J[employer]ITLES Work Phone: [facility] ORTHOPAEDICSStart: 05-13-2024 End: 31-52-2971Chckju flowsheetMaria B Apling TRANSPORTATION [employer]LES Work Phone: [facility] ORTHOPAEDICSStart: 05-13-2024 End: 08-36-0025Dxqvap outpatient visit 15 minutesMaria B Apling TRANSPORTATION JOB [employer]LES Work Phone: [facility] CI ORTHOPAEDICSComment on above:Pain of right thumb (Primary Dx); Trigger finger of right thumbStart: 05-13-2024 End: 35-59-7758jzaxiuewnjOQWHP B APLINGNot AvailableStart: 05-07-2024 End: 02-16-6953dwwxzabriqMgzwefnrmRiverside Methodist Hospital Work Phone: Start: 05-07-2024 End: 66-57-2580Rtlkgap encounter procedureC[facility] Work Phone: Start: 85-01-6775Wtt-patient / Non-visitC[facility] Health [facility] Work Phone: Start: 02-08-2024 End: 86-30-5020zvuarjpvxkCttlwbiodCity Hospital Work Phone: Start: 02-08-2024 End: 42-10-1256Vjwssru encounter procedureAlexis Physician [facility] Work Phone: Start: 01-24-2024 End: 65-52-0721Wlhsijcud to same day surgery centerJorge Desai MD Work Phone: NeurosurgeryComment on above:Lumbar stenosis with neurogenic claudication (Primary Dx)Start: 01-24-2024 End: 99-37-0582Owdboyumiphq consultation with patientJorge Desai MD Work Phone: NeurosurgeryStart: 01-24-2024 End: 76-27-7275ltrcugfodkMLIUSW HABBOUBFacility:[facility]-Mindedtart: 59-35-5520Zoalvjrnp encounterJorge Desai MD Work Phone: NeurologyComment on above: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 - Other Start: 01-15-2024 End: 38-45-8420bepvfuhomxRcaqkt A Radman RT(R)RadiologyComment on above: Radiology XRStart: 66-90-3117Libnuwd encounter procedureMelonie Granado RT(R) RadiologyStart: 01-15-2024 End: 07-31-7787Uoywpuyeah hospital visit by José Miguel Todd APRN.CNP Work Phone: RadiologyComment on above:S/P lumbar fusion [Z98.1] Start: 12-28-2023 End: 10-07-6849Csuckpe encounter Lynda Todd APRN.CNP Work Phone: NeurosurgeryComment on above:S/P lumbar fusion (Primary Dx)Start: 12-28-2023 End: 15-35-3375zmubfosxwjURRFTNC J SCHABELFacility:Jbphh HospitalStart: 02-15-6295Tfjkxdqol encounterJorge Desai MD Work Phone: NeurologyComment on above:FeverStart: 12-15-2023 End: 06-98-9296Ebmlzozemo and management of inpatientJORGE DESAI [facility] Hospitaltart: 12-05-2023 End: 45-23-9350VkgjecKgktde Habboub MD Work Phone: NeurologyStart: 07-21-0595Xraajtfje for other preprocedural examinationZACHARY [facility] HospitalStart: 11-15-2023 End: 07-31-1175Safyzlctu to establishmentAdventhealth Winter Park 2 Work Phone: pre AnesthesiaStart: 11-15-2023 End: 60-97-8701axdsnzuxwvKKEQUUGA Evelia LEIVAARDFacility:[facility] Start: 11-15-2023 End: 85-35-2055Mzyivlyczu consultationAdventhealth Winter Park 2 Work Phone: Pre AnesthesiaComment on above:Pre-op evaluation (Primary Dx); Pre-op testing; Primary hypertension; Pain in right hip; Pain, unspecifiedStart: 11-15-2023 End: 27-10-3821Lzraxrk encounter statusBayfront Health St. Petersburgain 2 Work Phone: [facility] Systemtart: 11-15-2023 End: 68-13-4967Grfpazqufyjsz examination doneAdventhealth Winter Park 2 Work Phone: [facility] Work Phone: Start: 21-57-2104faydhbthruAkadvb Habboub MD Work Phone: NeurosurgeryStart: 78-63-0267Cefgxgh encounter status Jorge Desai MD Work Phone: [facility] Systemtart: 63-91-2366Bhrrpieux encounter Jorge Desai MD Work Phone: NeurologyComment on above:Surgery DateStart: 09-04-2023 End: 56-53-2698iqkhxzbkxwNMJIIuzhxmrx:[facility]-Mindedtart: 08-01-2023 End: 99-82-9577keylqunnhvVlxdoqdz Ball Other [employer] Other Start: 93-21-5850Lpupprvmg encounterBenjamin BallFPG [facility] ClinicStart: 06-21-2023 End: 58-84-5356jwakczzbfcGrhemopo Ball Other [employer] Other Start: 44-70-8797Axamaybmd encounterBenjamin BallFPG [facility] ClinicStart: 06-19-2023 End: 33-15-9530oldnkedcrbBzhicypi Ball Other [employer] Other Start: 71-64-4771Wdbwlr outpatient visit 15 minutes Jordan BallFPG [facility] ClinicStart: 05-18-2023 End: 49-11-7786vflxpujmzoFcwpsipx Ball Other [employer] Other Start: 66-84-0639Eoijmupan encounterBenjamin BallFPG [facility] ClinicStart: 05-11-2023 End: 50-77-5346iszncfeoojPfpqphhn Ball Other [employer] Other Start: 77-19-3724Vksgty outpatient visit 25 minutes Jordan BallFPG [facility] ClinicStart: 03-21-2023 End: 91-39-8083bzyizbxosjLwqnmryw Ball Other [employer] Other Start: 03-68-5476Qhmovtops encounterBenjamin BallFPG [facility] ClinicStart: 02-19-2023 End: 10-30-4812aoapqtofwePbteuyvl Ball Other [employer] Other Start: 96-29-2392Rhektihjw encounterBenjamin BallFPG [facility] ClinicStart: 02-16-2023 End: 75-88-1366mrkwlineofZmpyxwzy Ball Other [employer] Other Start: 32-58-1323Szozrdgnh encounterBenjamin BallFPG [facility] ClinicStart: 02-10-2023 End: 32-95-4736uccmerwssiCxaqjcvu Ball Other [employer] Other Start: 16-11-4040Xyzsxckhc encounterBenjamin BallFPG [facility] ClinicStart: 02-09-2023 End: 36-06-2451beifapgvkwHvdoizgi Ball Other [employer] Other Start: 38-28-9780Kwbsugasu encounterBenjamin BallFPG [facility] ClinicStart: 02-06-2023 End: 70-59-6961dywigvhxpaNqmizzm Daysi Mi MDFacility:[facility] Start: 12-06-2022 End: 80-47-9434cobwtbeuyuAOMVJFQVVVRG LAKSHMIPATHY .Facility:D4Wfwur: 11-15-2022 End: 90-04-8316ckqzxyjhpqUGAVQNOBEYQB LAKSHMIPATHY .Facility:C4Nxifn: 11-03-2022 End: 92-36-7013nkqxjnouzgASFXCIENZMZJ LAKSHMIPATHY .Facility:W0Yrtfs: 10-18-2022 End: 57-31-1604zykyywqcdrTKOJELSVPIYN LAKSHMIPATHY .Facility:N1Xizzw: 10-06-2022 End: 64-29-2976ectogatpnpBGNROOCASNJB LAKSHMIPATHY .Facility:I1Lpkmc: 09-09-2022 End: 98-58-2079rbwbynxtlwCHCB GREWAL .Facility:L8Jmvlp: 21-91-2284Ylnadddjv encounterJorge Desai MD Work Phone: NeurologyComment on above:Received Outside Medical RecordsStart: 09-08-2022 End: 79-10-1449tzdlsutyciLAKA URI .Facility:S4Voney: 09-05-2022 End: 52-96-5150Mriltqs encounter procedureJorge Desai MD Work Phone: NeurosurgeryComment on above:Degenerative scoliosis (Primary Dx)Start: 08-02-2022 End: 43-19-6109nnmosqhqwtRP ZACARIAS SAMUEL .Facility:E7Jfesj: 07-27-2022 End: 47-78-2820neyyuzlxhqOB BENJAMIN BALLFacility:H9Ypori: 07-19-2022 End: 50-30-2018giwbzhblrxGC ZACARIAS SAMUEL .Facility:N5Zlzzj: 06-03-2022 End: 73-12-1435kvyaeqjnajAI BENJAMIN BALLFacility:H1 Procedures DateProcedureProcedure DetailPerforming ClinicianStart: 85-87-1435Bdwpc spine lumbosacral 2/3 viewsZachary Varinder Todd GEOINT ANALYST.CHILD AND FAMILY SERVICES WORKER Work Phone: Start: 20-03-1378Ivaagqhj screenZACHARY ZONIAComment on above:Order Comment: Specimen Type: BLOOD SPECIMEN Ordering Facility: [facility] Address: [address] [place], [place] [address]Performed By: #### [id number] #### [facility] [id number] [address] [place] [address] [place] AMERICAStart: 97-71-3328Ufk routine ecg w/least 12 lds i&r onlyCcf ProviderH/O: surgeryS/P trigger finger release Eula B Apling [employer] Work Phone: H/O: surgeryS/P trigger finger releaseMaria B Apling TRANSPORTATION [employer] Work Phone: Plan of Treatment DateCare ActivityDetailAuthorStart: 53-60-4267Pupvkppv ScreeningDiabetes ScreeningFranklin Lakes ClinicStart: 80-42-6500Ufeicndl ScreeningDiabetes Screening [facility] ClinicStart: 75-61-5876Yvwogqljn for malignant neoplasm of colon [facility]: 05-19-2025 End: 90-80-4714Dpjouaa encounter hrxdupnfl48/10/2025 9:30 AM EST Office [facility] [address] [place] [phone] Brody Castro, TRANSPORTATION [employer] [address] [place] [address] [facility] OrthopaedicsStart: 64-91-8277Mbucp BMI Screening Adult BMI ScreeningMercy Health St. [facility] SystemStart: 26-08-1265Gwrersz Screening Tobacco ScreeningWatauga Medical Centertart: 04-16-2025 End: 42-81-7864Dczftdp encounter ctlhxpaey67/08/2025 10:45 AM EDT Office Visit [facility] [address] [facility] [address] [place] [address] Jr. Katerina Olguin DO [address] [facility] [address] [place] [address] [facility] Comment on above:ArrivedStart: 04-07-2025 End: 66-96-0807Rdedwmj encounter ydgzfgsda70/29/2025 10:45 AM EDT Office Visit [facility] [address] [facility] [address] [place] [address] Nicole Mitchell, PA [address] [place] [address] Thumb pain, left (Primary Dx); Trigger finger of left thumbNOMS Paz OrthopaedicsComment on above:Thumb pain, left (Primary Dx); Trigger finger of left thumbStart: 94-78-1573Qetpwddgo vaccinationInfluenza Vaccine (#1)[facility] HealthcareStart: 06-19-2024 End: 54-29-5131Crqfjvp encounter vyiydehqg23/11/2024 8:30 AM EST Office [facility] [address] [facility] [address] [place] [address] Eula Castillo, TRANSPORTATION [employer] [address] [facility] [address] [place] [address] NOMS CI ORTHOPAEDICSStart: 06-17-2024 End: 06-27-0377Vusauwr encounter wbppfaovy68/09/2024 9:30 AM EST Office Visit [facility] [address] [place] [address] [place] [address] Eula Castilol, TRANSPORTATION [employer] [address] [facility] [address] [place] [address] S/P trigger finger release (Primary Dx) NOM[facility] CI ORTHOPAEDICSComment on above:S/P trigger finger release (Primary Dx) Start: 05-22-2024 End: 89-29-0075Lvprigw encounter ttsunrjmv44/13/2024 9:00 AM EST Office Visit [facility] [address] [place] [address] [place] [address] Eula Castillo, TRANSPORTATION J[employer]LES [address] [facility] [address] [place] [address] N[facility] CI ORTHOPAEDICSStart: 05-15-2024 End: 87-41-2668Uetule sheath incisionRELEASE TRIGGER FINGER right trigger thumb 05/15/2024 10:03 AM ESTFREMONT SURGERYStart: 05-14-2024 End: 31-85-3106Nqvpvyu encounter dwhfhviye14/05/2024 9:00 AM EST Office Visit [facility] [address] [place] [address] [place] [address] Rossana Miller DO [address] [facility] [address] [place] [address] [facility] ORTHOPAEDICSStart: 05-13-2024 End: 07-16-7529Decylee encounter bnaqynzko29/04/2024 1:00 PM EST Office Visit [facility] [address] [place] [address] [place] [address] Eula Castillo, ZACHARY [address] [facility] [address] [place] [address] ArrivedNOMS CI ORTHOPAEDICSComment on above:ArrivedStart: 63-20-5194Avhimwu referralUpper Valley Medical Center Work Phone: Start: 66-21-3221EQnZ,Tdap and Td Vaccines (2 - Td or Tdap)DTaP,Tdap and Td Vaccines (2 - Td or Tdap)[facility] SystemStart: 62-06-0665Wjzejslvb vaccinationInfluenza Vaccine (#1)[facility]: 01-24-2024 End: 30-81-3607Sxgmvyybx to same day surgery isqhqs0601/24/2024 3:20 PM EDT [facility] Neurosurgery [address] [place] [address] [place] [address] [place] [address] VV Post opNeurosurgeryComment on above:VV Post opStart: 12-28-2023 End: 19-67-9014Btwyfgo encounter syrsusfjq82/20/2024 1:00 PM EDT Office Visit Neurosurgery [address] [place] [address] Jodi Vega PA-C [address] [facility] [place] [address] post opNeurosurgeryComment on above:post opStart: 12-15-2023 End: 12-52-2777Ecyqsvchd to same day surgery kpxjnj2412/15/2023 10:00 AM EDT - 12/15/2023 1:20 PM EDT [facility] Operating Room [address] [address] [place] [address] [place] [address] LATERAL INTERBODY FUSION (LIF); [facility] Operating RoomComment on above:LATERAL INTERBODY FUSION (LIF); LUMBARStart: 12-15-2023 End: 33-45-3426Ivsfxzwbn for spine surgery only structuralSPINE ALLOGRAFT Spinal stenosis, lumbar region with neurogenic claudication 12/15/2023 10:00 AM EDTLU ORStart: 12-15-2023 End: 14-21-2684Hqrkwtnxnsh anterior interbody lumbarLATERAL INTERBODY FUSION (LIF); LUMBAR Spinal stenosis, lumbar region with neurogenic claudication 0 12/15/2023 10:00 AM EDTLU ORStart: 12-15-2023 End: 70-73-6801Ootn biomchn dev intervertebral dsc spc w/arthrdINSERTION INTERBODY BIOMED DEVICE(S) W/ANT INSTR ANCHORING TO DISC SPACE W/INTERBODY FUSION,EA INTERSPACE Spinal stenosis, lumbar region with neurogenic claudication 12/15/2023 10:00 AM EDTLU ORStart: 90-97-9529Ouqshkpzgx hospital visit by scoeyjahq39/07/2024 10:00 AM EDT Hospital Encounter [facility] Operating Room [address] [address] [place] [address] [place] [id number] Spinal stenosis, lumbar region with neurogenic claudication [M48.062][facility] Operating RoomComment on above:Spinal stenosis, lumbar region with neurogenic claudication [M48.062]Start: 12-05-2023 End: 66-50-5257Sgzeakz encounter jayqcumqb25/28/2024 11:45 AM EDT Office Visit Financial Clearance Phone Screening [facility] surgica registrationFinancial Clearance Phone ScreeningComment on above:surgica registrationStart: 11-15-2023 End: 47-84-9992Tpezyhav identified in Urine by CultureBethesda North HospitalComment on above:Expected: 11/15/2023, Expires: 02/14/2024Start: 11-15-2023 End: 33-31-8528Jipippegulkdn metabolic 2000 panel - Serum or PlasmaCincinnati Children'S [facility] Work Phone: Comment on above:Expected: 11/15/2023, Expires: 02/14/2024Start: 11-15-2023 End: 40-32-2092HZBGMMS BLOOD TYPEBethesda North HospitalComment on above:Expected: 11/15/2023, Expires: 02/14/2024Start: 11-15-2023 End: 64-14-6407Gqvueakf [Mass/volume] in Serum or PlasmaBethesda North HospitalComment on above:Expected: 11/15/2023, Expires: 02/14/2024Start: 11-15-2023 End: 40-91-1149Oycj and Iron binding capacity panel - Serum or PlasmaBethesda North HospitalComment on above:Expected: 11/15/2023, Expires: 02/14/2024Start: 11-15-2023 End: 74-71-4398BPOB AND SCREEN,30 DAYCleMagruder HospitalComment on above:Expected: 11/15/2023, Expires: 02/14/2024Start: 11-15-2023 End: 75-54-7022CKPGCCFYKG, REFLEX MICROSCOPICCleMagruder HospitalComment on above: Expected: 11/15/2023, Expires: 02/14/2024Start: 95-87-3360Kwhuu-19 Vaccine ( season)Covid-19 Vaccine ( season)[facility] Systemtart: 63-06-5766Kuiabtfd Vaccine (2 of 2)Shingrix Vaccine (2 of 2)[facility] Start: 77-42-6167Hziwezn Directive DiscussionAdvance Directive Discussion [facility]tart: 30-96-4178Lkrhhijypt Health ScreeningBehavioral Health ScreeningOhio State Health Systemtart: 32-48-3556Oflxvafzft AssessmentDepression AssessmentOhio State Health Systemtart: 66-42-8528IOSUGXH DIRECTIVE DISCUSSIONADVANCE DIRECTIVE DISCUSSIONOhio State Health Systemtart: 17-81-4896DHINGRFOFH ASSESSMENT DEPRESSION ASSESSMENTOhio State Health Systemtart: 84-33-5169Robhqaijwvgi Vaccine: 65+ (3 of 3 - PPSV23 or PCV20)Pneumococcal Vaccine: 65+ (3 of 3 - PPSV23 or PCV20) [facility]tart: 62-21-2366Zazejldqkxbq Vaccine: 65+ Years (3 of 3 - PCV20 or PCV21)Pneumococcal Vaccine: 65+ Years (3 of 3 - PCV20 or PCV21)[facility] HealthcareStart: 01-35-1095Feytcovmqxkv Vaccine: 65+ Years (3 of 3 - PPSV23 or PCV20)Pneumococcal Vaccine: 65+ Years (3 of 3 - PPSV23 or PCV20)[facility] Healthcare Start: 61-35-3974Unxllbefnqxp Vaccine: 65+ (2 of 2 - PCV)Pneumococcal Vaccine: 65+ (2 of 2 - PCV)[facility] Systemt[facility]: 97-59-4651EQWB DENSITYBONE DENSITY [facility]: 44-45-4093Oacc Risk ScreeningFall Risk ScreeningWatauga Medical Centertart: 00-20-6063SWTQOPCUFMCE: 65+ (1 - PCV)PNEUMOCOCCAL: 65+ (1 - PCV)[facility] Systemt[facility]: 64-91-8400Ewzgxkqrz for osteoporosisBone Density ScreeningOhio State Health Systemtart: 87-99-5814Hqrpd microalbumin profileDTaP,Tdap,Td Vaccine (1 - Tdap)[facility]: 84-73-3192EGF Vaccine (1 - 1-dose 60+ series)RSV Vaccine (1 - 1-dose 60+ series)[facility]: 2000 SHINGRIX VACCINE (1 of 2)SHINGRIX VACCINE (1 of 2)[facility] Systemtart: 92-10-6878WBOUDABEZ (FIT-DNA)COLOGUARD (FIT-DNA)[facility] Systemtart: 51-01-8147KtszfyuduzdWVDPQHWNKQEDdnzywacl ClinicStart: 27-02-9483YENOIOFWQB CANCER SCREENINGCOLORECTAL CANCER SCREENINGOhio State Health Systemtart: 00-60-9454LK COLONOGRAPHYCT COLONOGRAPHYOhio State Health Systemtart: 71-36-1047WENHPSXZ SCREEN DIABETES SCREENOhio State Health Systemtart: 30-12-5466Qiqjtlem ScreeningDiabetes ScreeningOhio State Health Systemtart: 47-42-6886SIOEL OCCULT BLOODFECAL OCCULT BLOOD [facility]: 28-85-3151Jjear panelLipid ScreeningBethesda North Hospital Start: 99-32-8543UEWGV SCREENLIPID SCREENOhio State Health Systemtart: 1995 Screening for malignant neoplasm of colonCleveland ClinicStart: 1995 SIGMOIDOSCOPYSIGMOIDOSCOPYOhio State Health Systemtart: 38-43-0667BifzrlpcljwEUGOFARAR [facility]: 30-90-8813Nsokktwbq for malignant neoplasm of breast [facility] Systemt[facility]: 99-88-8223Aleek microalbumin profileBethesda North Hospital Start: 57-94-5358Slppw BMI Follow Up PlanAdult BMI Follow Up PlanWatauga Medical Centertart: 58-42-0739Kottno PCP Team Chronic Disease VisitAnnual PCP Team Chronic Disease VisitOhio State Health Systemtart: 31-27-8255SV Controlled (<130/80)BP Controlled (<130/80)[facility]: 35-91-0516QPZRCGCBK C SCREENINGHEPATITIS C SCREENINGOhio State Health Systemtart: 50-30-6640Ednkseuzc C screeningHepatitis C ScreeningOhio State Health Systemtart: 80-26-5289Rdolqnybtc ScreeningDepression ScreeningWatauga Medical Centertart: 43-05-5909Itxrmvzvm for malignant neoplasm of colonOzarks Community HospitalComprehensive metabolic 2000 panel - Serum or PlasmaKettering Health PrebleECG [facility] Comment on above:Ordered: 4Patient referralUpper Valley Medical Center Work Phone: us PelvisKettering Health Preble End: 67-59-0637LV Lumbar spine AP and LateralXR LUMBAR LIMITED 2V AP/LAT Radiology Routine S/P lumbar fusion 1 Occurrences starting 12/28/2023 until 01/26/2025[facility] Work Phone: comment on above:1 Occurrences starting 12/28/2023 until 5CKaiser [facility] Immunizations Immunization DateImmunizationNotesCare YhaqxfasYfdassdq77-54-3359smoxiriuc virus vaccine, unspecified formulationJr. Stepanic DO Work Phone: [facility] HospitalNikpmunenz15-95-1119mizvwfvph, high dose seasonal, preservative-freeBrody Castro NP Work Phone: [facility] HospitalJmagbuisig29-89-8571hvveqszio virus vaccine, unspecified formulationMatthew Mitchell PA Work Phone: [facility] HospitalGqdpsjnnnf32-43-8327QHGVW-86 mRNA Bivalent Booster (Pfizer)Jordan Avitia DO Work Phone: [facility]09-01-2024influenza virus vaccine, unspecified formulationBenjevonmin Ball DO Work Phone: [facility]03-09-2024zoster vaccine recombinantGrant Castro TRANSPORTATION [employer] Work Phone: [facility] HospitalUforzxkodj94-60-0808fzytjc vaccine recombinant Brody Castro TRANSPORTATION [employer] Work Phone: [phone] Community HospitalDqkulliohr35-01-4423Cqmujuqno, Seasonal, Quadrivalent, AdjuvantedGrant Castro TRANSPORTATION [employer] Work Phone: [facility] HospitalUjvtwpgaib98-83-8367tftxwmcbh virus vaccine, unspecified formulationMelonie Granado RT(R)[facility] HospitalKfloxm23-49-8170LFNWB-04 Pfizer (bivalent)Jordan Avitia Other [facility]10-17-2022influenza, high dose seasonal, preservative-freeBenjamin Adore Other [employer] Other 80-84034758-42-5799SRMUV-70 Pfizer (bivalent)Jordan Avitia Other [facility]10-17-2022influenza virus vaccine, unspecified formulationKettering Health [facility]ble 81-54-3576Zilnvgymk, Seasonal, Quadrivalent, AdjuvantedGrant Castro TRANSPORTATION [employer] Work Phone: [facility] HospitalCeqbuyxtum13-75-4961pxodtrrcj, injectable, quadrivalent, preservative freeGrant Castro TRANSPORTATION [employer] Work Phone: [facility] HospitalSuavkidibt16-63-3807JNSJM-12 PfizerBenjamin Ball Other [facility]10-30-2021Influenza, Seasonal, Quadrivalent, AdjuvantedGrant Castro [employer]SP[employer]ATION [employer] Work Phone: [phone] [place], [place] [address]Sujlqywtoa25-74-6509eokyqqvtp, injectable, quadrivalent, preservative freeGrant Castro TRANSP[employer]ATION [employer] Work Phone: [facility] HospitalNubqptfozw89-95-8826SSPIC-33 Vaccine Pfizer - Documentation Purposes OnlyJordan Avitia Other [facility]08-25-2020influenza virus vaccine, split virus (incl. purified surface antigen)Jordan Avitia Other [employer] Other 08213587-07-8801ixivjmltb virus vaccine, unspecified formulationKettering Health Preble08-25-2020influenza, injectable, quadrivalent, preservative freeGrant Castro [employer]SP[employer]ATION [employer] Work Phone: [phone] [place], [place] [address]Kyaglhihvc75-49-4044cbvsyzben, live, intranasal, quadrivalentGrant Castro TRANSP[employer]ATION [employer] Work Phone: [facility] HospitalRizdhvqvth38-63-7188uerclbeym virus vaccine, split virus (incl. purified surface antigen)Jordan Avitia Other [employer] Other 630472-05-1954ufyvvyyac virus vaccine, unspecified formulationKettering Health [facility]ble10-08-2018Seasonal trivalent influenza vaccine, adjuvanted, preservative freeGrant Castro [employer]SP[employer]ATION [employer] Work Phone: [facility] HospitalCrqlsqgmcx12-75-5390iypogwlckicq conjugate vaccine, 13 valentBemiller Avitia Other [facility]10-02-2015influenza, seasonal, injectable, preservative freeGrant Castro TRANSPORTATION [employer] Work Phone: [facility] HospitalOqawlptuvr20-45-4101nlaykclkrybs polysaccharide vaccine, 23 valentBemiller Avitia Other [facility]10-07-2014tetanus and diphtheria toxoids, adsorbed, preservative free, for adult use (5 Lf of tetanus toxoid and 2 Lf of diphtheria toxoid)Jordan Avitia Other [facility]04-04-2014 pneumococcal polysaccharide vaccine, 23 Michael Avitia Other [facility] Payers DatePayer CategoryPayerPolicy [id number] Health InsuranceAETNA [id number] Managed Care - POSAETNA Member Subscriber Plan / Payer (Effective 2023-Present) Name: Christian Noyola Dianelys Relation to Subscriber: Self Name: Christian Noyola Payer ID: 1 (NAIC) Group ID: Not on file Type: Not on file Address: [address] [id number] Health [id number] [id number] 11-44-2462Heqexik3.2.840.748664.1.13.159.2.7.3.619951.46114-43-3862Oozocnm [id number] [id number] [id number] 1950 [id number] 2..840.1.001278.3.57[id number] 2.16.840.1.665325.3.57[id number] 2.16.840.1.283643.3.57[id number] 2.16.840.1.989436.3.57[id number] 2.16.840.1.699907.3.579.2.25226-70-6761Tpkhtus0571471 2.16.840.1.525939.3.57[id number] 2.16.840.1.782127.3.57[id number] 2.16840.1.531004.3.57[id number] 2.16.840.1.029422.3.57[id number] 2.16.840.1.046077.3.57[id number] 2.16.840.1.450182.3.57[id number] 2.16840.1.910762.3.57[id number] 2.16.840.1.721077.3.57[id number] 2.16.840.1.978363.3.579.[id number] 2.16.840.1.839664.3.57[id number] 2.16.840.1.246196.3.579.[id number] 2..840.1.653768.3.579.2.10[id number] 2..840.1.932380.3.57[id number] 2..840.1.961957.3.579.2.[id number] 2..840.1.681521.3.579.2.1259MedicareMedicare [id number] Health InsuranceAetAlhambra Hospital Medical Center [id number] Pay [id number] Social History DateTypeDetailFacilityStart: 09-05-2022 End: 87-65-4289Cqdbgsb smoking status NHISEx-smokerBethesda North Hospital End: 86-58-8173Ztyhgnz of tobacco useCurrent smokerBethesda North Hospital End: 50-74-4025Nldjpdq of tobacco useCigarette SmokerOhio State Health Systemtart: 33-07-3672Mgg [facility]ert[facility]: 09-04-2023 End: 31-92-1529Awv Assigned At BirthFranklin Lakes ClinicStart: 09-04-2023 End: 76-02-9415Dptzcax of Social functionOhio State Health Systemtart: 38-80-8838Tndeh Depression Screening Aybkkwuade9Uoolsanol ClinicStart: 00-43-4577Vpiqih identity Identifies as female gender (finding)[facility]: 92-50-8738Mhlqvs orientationHeterosexual (finding)[facility] Systemt[facility]: 11-15-2023 End: 50-32-7132Xricrrc intakeCurrent drinker of alcohol (finding)[facility]: 22-89-6891Xykornl Commentspecial occasionsOhio State Health Systemtart: 13-69-4442Kppkbyr smoking status NHISNever smoked tobaccoFILLMORE COMMUNITY MEDICAL CENTER HealthcareStart: 05-08-2023 End: 46-62-1213Isrrejm use and exposureSmokeless tobacco non-userNOOR Healthcare Start: 88-54-9206Grj assigned at birthNot on fileFILLMORE COMMUNITY MEDICAL CENTER HealthcareStart: 23-78-2777Fdcdqqe CommentsocialMercy Health St. [facility]'s [facility] SystemStart: 64-24-3225TodTmqtit (finding)[facility] Medical Equipment Procedure CodeEquipment CodeEquipment Original TextEquipment IdentifierDates Graft Infuse 14mm Small Bovine Collagen Rhbmp-2 23mm Bone Absorbable Sponge - [id number]: 92-03-5561Yiicrygpfu Mastergraft Calcium Phosphate Collagen Bone Graft Void Filler - [id number]: 38-86-5851Djxu Spacer 8-15mm 20mm X 55mm [id number]: 47-14-4356Cipa Drilling Screw Variable Angle 5.5mm [id number]: 12-15-2023 Clinical Notes 07-19-2022 to 04-16-2025 Note Date & TxmyNhvaIqksrjej26-98-1777 History of Present illness Narrative* Jr. Katerina Olguin, DO - 04/16/2025 10:45 AM EDT Images from the original note were not included. HISTORY OF PRESENT ILLNESS: EST PT Christian Noyola is an 74 y.o. @ female. (EST PT) (LAST APPT W/ [facility]) - RECHECK (L) THUMB DISCOMFORT / LOCKING ~1 MONTH (02/2025) - HERE TO DISCUSS OPTIONS NO RECENT IMAGING ADMITS DISCOMFORT DIFFUSELY - DENIES RADIATION. CONSTANT LOCKING - HAS TO USE OPPOSING HAND TO UNLOCK. DENIES N/T. LIMITED ROM WHEN LOCKED. GOOD VOCATIONAL TRAINER / GRASP. DENIES WEAKNESS / STIFFNESS. SOME SWELLING. OCCASIONALLY WAKING HS. 2 IBU DAILY (LBP). DENIES ICING / HEATING. HAS TRIED VOLTAREN - NO RELIEF. HX (R) THUMB TRIGGER RELEASE 05/15/24 - DR. MILLER RT HANDED. ALLERGIES: No Known Allergies HOME MEDICATIONS: Current Outpatient Medications Medication Instructions amLODIPine (Norvasc) 5 MG tablet Daily ibuprofen 200 MG tablet Once Multiple Vitamins-Minerals (Multi For Her 50+) tablet as directed Orally olmesartan (BENICAR) 20 mg, Daily PHYSICAL EXAM: Hand/Wrist Musculoskeletal Exam Inspection Left Left hand/wrist inspection is normal. Erythema: none Ecchymosis: none Edema: none Deformity: none Palpation Left Triggering: thumb Thumb tenderness to palpation: A1 stephanie Left wrist palpation is normal. Wrist tenderness to palpation comment: To A1 stephanie tuumb Range of Motion Left Hand Thumb interphalangeal: limited (Secondary to triggering) Left Wrist Left wrist range of motion is normal. Active Extension: 80 Passive Extension: 80 Active Flexion: 80 Passive Flexion: 80 Active Pronation: 90 Passive Pronation: 90 Active Supination: 90 Passive Supination: 90 Strength Left Hand Left hand strength is normal. Left Wrist Left wrist strength is normal. Extension: 5/5. Flexion: 5/5. Radial deviation: 5/5. Ulnar deviation: 5/5. Pronation: 5/5. Supination: 5/5. Neurovascular Left Left neurovascular exam is normal. Radial pulse: normal and 2+ Capillary refill: brisk and <3 sec Ulnar nerve sensory distribution: normal Median nerve sensory distribution: normal Superficial radial nerve sensory distribution: normal Special Tests Left DRUJ instability: negative TFCC load test: negative General Constitutional: appears stated age Labored breathing: no Neurological: alert and oriented x3 Skin: intact Lymphadenopathy: none Vitals: There is no height or weight on file to calculate BMI. Tobacco Use: Low Risk (04/16/2025) Patient History Smoking Tobacco Use: Never Smokeless Tobacco Use: Never Passive Exposure: Not on file Alcohol Use: Not on file IMAGING: Procedures No orders of the defined types were placed in this encounter. ASSESSMENT: ICD-10-CM 1. Trigger finger of left thumb M65.312 2. Pain of left thumb M79.645 PLAN: We discussed her symptoms physical exam and response to rest ice and nonsteroidals. She has a left trigger thumb and would like surgical intervention. We have discussed both surgical and nonsurgical treatment options and she understands the risks and benefits associated with both. We will see her back on the day of surgery for open release of the A1 stephanie left thumb We have discussed both surgical and nonsurgical treatment options with the patient and the risks and benefits associated with both. The patient is requesting surgical intervention because the patient's symptoms were affecting the patient's activities of daily living and ability to sleep. The patient's symptoms were unresponsive to outpatient treatment options. After lengthy discussions involving but not limited to both surgical and nonsurgical treatment options the patient has requested surgical intervention and we will see them back on the day of surgery. The patient understands the risks ofsaid treatment. Questions answered in laymen terms at the bedside. The diagnosis, home exercise plan and any ongoing restrictions/ recommendations reviewed. If unable to be reached in office, I recommend evaluation at nearest Emergency Room if any symptoms worsened or new symptoms develop for requiring urgent evaluation. documented in this encounterOzarks Community HospitalCxfegluxmp11-38-8620 History of Present illness Narrative* DAVID Avendaño - 04/07/2025 10:45 AM EDT Images from the original note were not included. Orthopedic Office note: NAME: Christian Noyola : 1950 (EST PT) (LAST APPT W/ [facility]) - (L) THUMB DISCOMFORT / LOCKING ~1 MONTH (02/2025) ; NO RECENT INJURIES NO RECENT IMAGING ADMITS DISCOMFORT DIFFUSELY - DENIES RADIATION. CONSTANT LOCKING - HAS TO USE OPPOSING HAND TO UNLOCK. DENIES N/T. LIMITED ROM WHEN LOCKED. GOOD VOCATIONAL TRAINER / GRASP. DENIES WEAKNESS / STIFFNESS. OCCASIONALLY WAKING HS. 2 IBU DAILY (LBP). DENIES ICING / HEATING. HAS TRIED VOLTAREN - NO RELIEF. HX (R) THUMB TRIGGER RELEASE 05/15/24 - DR. MILLER RT HANDED. Hand/Wrist Musculoskeletal Exam Inspection Right Incision: well-healed Incision comment: A 1 stephanie of right thumb. Left Left hand/wrist inspection is normal. Erythema: none Ecchymosis: none Edema: none Deformity: none Palpation Left Left hand palpation is normal. Triggering: thumb Thumb tenderness to palpation: A1 stephanie Palpation additional comments: DENIES PAIN TO PALPATION OF HAND/ WRIST JOINT, trace soreness cmc joint of thumb. Range of Motion Left Hand Left hand range of motion is normal. Range of motion additional comments: ABLE TO MAKE FULL FIST Strength Left Hand Left hand strength is normal. Strength additional comments: 5/5 EQUAL VOCATIONAL TRAINER STRENGTH Neurovascular Left Left neurovascular exam is normal. Radial pulse: normal and 2+ Capillary refill: <3 sec General Constitutional: appears stated age Labored breathing: no Neurological: alert and oriented x3 Skin: intact Lymphadenopathy: none No orders of the defined types were placed in this encounter. Procedures Results ICD-10-CM 1. Thumb pain, left M79.645 2. Trigger finger of left thumb M65.312 F/U Dr. Olguin to discuss need for possible: Left trigger thumb release: Surgical and non surgical tx options discussed with conservative measures reviewed. Recommend ICE/ ELEVATION, continued activity modification in interim. Pt would consider surgical intervention to possibly improve symptoms. Assessment & Plan Left thumb trigger thumb Tenderness in the A1 stephanie of the thumb, along with palpable catching and locking, is present. These symptoms are moderately impacting daily activities. Being right-hand dominant, she plans to host a family gathering approximately 2 weeks before Thanksgi. Considering surgical intervention for release due to previous positive results with a similar procedure on the right thumb. Potential scheduling either immediately or post-gathering was discussed. Both surgical and nonsurgical treatment options were explored. She is not interested in a tendon sheath injection due to the associated risksand benefits, particularly the use of steroids given her retinal issues. The surgical procedure and postoperative expectations were thoroughly discussed, and she expressed gratitude for the information provided. No further concerns or questions were noted. Treatment plan: Considering surgical intervention for release due to previous positive results witha similar procedure on the right thumb. Potential scheduling either immediately or post-gathering was discussed. Both surgical and nonsurgical treatment options were explored. She is not interested in a tendon sheath injection due to the associated risks and benefits, particularly the use of steroids given her retinal issues. Clinical decision making: Both surgical and nonsurgical treatment options were explored. She is notinterested in a tendon sheath injection due to the associated risks and benefits, particularly the use of steroids given her retinal issues. The surgical procedure and postoperative expectations were thoroughly discussed, and she expressed gratitude for the information provided. Follow-up: Dr. Olguin Questions answered in laymen terms at the bedside. The diagnosis, home exercise plan and any ongoing restrictions/ recommendations reviewed. If unable to be reached in office, I recommend evaluation at nearest Emergency Room if any symptoms worsened or new symptoms develop for requiring urgent evaluation. Visit was preformed using [employer]state pilot speech recognition. documented in this encounterOzarks Community HospitalVdiphmzcdh19-88-1101 History of Present illness Narrative* Eula Castillo, ZACHARY - 06/17/2024 9:30 AM EST Images from the original note were [...] and diagnosis. It was dispensed and fitted forthe patient, and it fit properly. The patient was educated as to proper use and care, and this was reviewed in detail. Written instructions and warranty information were given with the device. A receipt for the device is on file. The current supplier standards were given to the patient. [employer] patient agreement was completed at time of dispensement. The patient stated that the device was comfortable when fitted in the office. At the time of dispensement, the device was suitable and not substan dard. Discussed therapy for incisional desentization and she notes she is going to think about it, wear the brace while sleeping if worsening symptoms instructed to call us. F/U prn documented in this encounterOzarks Community HospitalKhobempppe82-26-4910 History of Present illness Narrative* Eula Castillo NP - 05/22/2024 9:00 AM EST Images from the original note were [...] f/u in 4 weeks documented in this encounterOzarks Community HospitalZkfwucgisn97-47-2183 Telephone encounter Note* Telephone Encounter - Brody Castro NP - 05/14/2024 12:23 PM EST Post op pain rx. PDMP reviewed [facility] [id number] Miscellaneous Notes* Telephone Encounter - Brody Castro NP - 05/14/2024 12:23 PM EST Post op pain rx. PDMP reviewed documented in this encounterOzarks Community HospitalNifroipmor95-54-3993 Nurse Note* Perioperative Nursing Note - Mariza Watson RN - 05/14/2024 12:16 PM EST Preoperative Education Checklist- General Surgery date: 05/15/24 Surgery time: 1015a Arrival time: 815a 1. Bring a photo ID and your insurance card with you the day of surgery. You will check in at the main lobby of the [facility]- registration desk is straight ahead as soon as you walk in. Tell them you are here for surgery. 2. If you have a Living Will/Durable Power of Technical Assoc for Health Care that is not on [...] after you have bathed. 5. NO nail cymro/acrylic on at least one finger. If you are having a hand, wrist or foot surgery then all nail cymro and artificial/acrylic nails must be removed from [...] WITH YOU ANY DEVICES YOU MAY NEED: KYARA hose, ice machine, sling/swath, brace or special [...] least 8 hours and marijuana for 24 hoursprior to arrival for your surgery. 16. If [...] please call the Preadmission Testing office at [phone], Mon.-Fri. 7 a.m.-3 p.m. Leave a voicemail if needed. Pre-Surgery Instructions: Medication Instructions amLODIPine (NORVASC) 5 mg tablet Take morning of procedure olmesartan (BENICAR) 20 mg tablet Stop taking 0 days prior to procedure ibuprofen (MOTRIN) 400 mg tablet Stop now kjudafbe-yxvt-JC-calcium &mins (THERAGRAN-M) 9 mg iron-400 mcg tablet Stop taking 0 days prior to procedure [facility]11-05-2024 Miscellaneous Notes* Perioperative Nursing Note - Mariza Watson RN - 05/14/2024 12:16 PM EST Preoperative Education Checklist- General Surgery date: 05/15/24 Surgery time: 1015a Arrival time: 815a 1. Bring a photo ID and your insurance card with you the day of surgery. You will check in at the main lobby of the [facility]- registration desk is straight ahead as soon as you walk in. Tell them you are here for surgery. 2. If you have a Living Will/Durable Power of Technical Assoc for Health Care that is not on [...] after you have bathed. 5. NO nail cymro/acrylic on at least one finger. If you are having a hand, wrist or foot surgery then all nail cymro and artificial/acrylic nails must be removed from [...] WITH YOU ANY DEVICES YOU MAY NEED: KYARA hose, ice machine, sling/swath, brace or special [...] least 8 hours and marijuana for 24 hoursprior to arrival for your surgery. 16. If [...] please call the Preadmission Testing office at [phone], Mon.-Fri. 7 a.m.-3 p.m. Leave a voicemail if needed. Pre-Surgery Instructions: Medication Instructions amLODIPine (NORVASC) 5 mg tablet Take morning of procedure olmesartan (BENICAR) 20 mg tablet Stop taking 0 days prior to procedure ibuprofen (MOTRIN) 400 mg tablet Stop now fljsajjx-uznl-CH-calcium &mins (THERAGRAN-M) 9 mg iron-400 mcg tablet Stop taking 0 days prior to procedure documented in this encounterSouthwest [facility] Center11-[facility]-2024 History of Present illness Narrative* Rossana Miller, DO - 05/14/2024 9:00 AM EST Images from the original note were [...] Pt is RT handed [place]: PCP 05/07/24, sidran, Acute Neurological Problem This is a new problem. The current episode started 1 to 4 weeks ago. The problem has been unchanged. Pertinent negatives include no abdominal pain, chest pain, diaphoresis, fatigue, fever, headaches,nausea, neck pain, vertigo, visual change, vomiting or [...] reflux disease) Hepatitis HTN (hypertension) (CMS/HCC) Hyperlipidemia (CMS/[facility]) ALLERGIES: No Known Allergies VITALS: Visit [...] Comments denies dribbling. Incontinence denies. Musculoskeletal: CommentsSee [facility] for details. Skin: Rash denies. Neurologic: [...] Dr. Miller/sukhdev Miller D.O. documented in this encounterOzarks Community HospitalWgapgspens58-31-1670 History of Present illness Narrative* Eula Castillo NP - 05/13/2024 1:00 PM EST Images from the original note [...] it off, state this happens on and offfor a while before the thumb started triggering. She takes 2 IBU every morning for back issues, has not increased the dose for the thumb. Has tried voltaren gel w/o relief. Admits occas waking at night. Denies swelling. No surgeries on this hand or prior injuries. [place]: PCP 05/07/24, voltaren, Objective Ortho Exam Hand/Wrist Musculoskeletal Exam Inspection [...] to discuss surgical intervention. documented in this encounterOzarks Community HospitalAekrttjxtu32-02-0038 History of Present illness Narrative* Jorge Desai MD - 01/24/2024 3:20 PM EDT SPINE SURGERY FOLLOW UP This is a virtual visit using [employer] Video Visit. It required patient- provider interaction for the medical decision making as documented below. I have communicated my name and active licensure. The patient's identity and physical location wereverified at the time of this visit. Either the patient or their legal installation service representative has been informed of the risks and benefits of -- and alternatives to -- treatment through a remote evaluation andconsents to proceed with the evaluation remotely. SERVICE [...] licensure. The patient's identity and physical location wereverified at the time of this visit. Either the patient or their legal installation service representative has been informed of the risks and benefits of -- and alternatives to -- treatment through a remote evaluation andconsents to proceed with the evaluation remotely. The documentation for this note was completed by Joel Hunter acting as scribe for Jorge Desai MD. January 24, 2024 3:30 PM. SIGNATURE: Jorge Desai MD PATIENT NAME: Christian Noyola DATE: January 24, 2024 TIME: 8:43 AM PAGER: documented in this encounterBethesda North Hospital07-17-2024 NoteHNO ID: [id number] Author: JORGE DESAI MD Service: ? Author Type: Physician Type: Progress Notes Filed: 01/24/2024 18:28 Note Text: SPINE SURGERY FOLLOW UP This is a virtual visit using [employer] Video Visit. It required patient-provider interaction for the medical decision making as documented below. I have communicated my name and active licensure. The patient's identity and physical location were verified at the time of this visit. Either the patient or their legal installation service representative has been informed of the risks [...] with neurogenic claudication (primary encounter diagnosis) Christian Beverley Noyola will continue with medical management of his/her condition. Decrease gabapentin until discontinued. Follow up: Six weeks Imaging Ordered: None I spent 15 minutes discussing with the patient his/her symptoms and future plans I have communicated my name and active licensure. The patient's identity and physical location were verified at the time of this visit. Either the patient or their legal installation service representative has been informed of the risks [...] DATE: January 24, 2024 TIME: 8:43 AM [facility]AGER:[facility] [phone] Telephone encounter Note* Telephone Encounter - Debbi Brizuela RN - 01/24/2024 2:04 PM EDT Signed form faxed to number requested. Faxed verification received. [facility]07-17-2024 Miscellaneous Notes* Telephone Encounter - Debbi Brizuela RN - 01/24/2024 2:04 PM EDT Signed form faxed to number requested. Faxed verification received. * Telephone Encounter - Debbi Brizuela RN - 01/23/2024 2:26 PM EDT Printed for review and signature. * Telephone Encounter - Emily Ellis - 01/23/2024 1:46 PM EDT [facility] Progress Note scanned to [facility] for review and signature documented in this encounterBethesda North Hospital07-16-2024 Telephone encounter Note * Telephone Encounter - Debbi Brizuela RN - 01/23/2024 2:26 PM EDT Printed for review and signature. [facility]07-16-[facility] Telephone encounter Note* Telephone Encounter - Emily Ellis - 01/23/2024 1:46 PM EDT [facility] Progress Note scanned to [facility] for review and signature [facility]07-08-2024 NoteHNO ID: [id number] Author: MELONIE GRANADO RT(Cristobal) Service: ? Author Type: Technologist Type: Progress [...] PATIENT PRESENTS WITH AN IMPLANTABLE OR ATTACHED INTERPRETER TRANSLATOR: No RADIOLOGY DEPARTMENT: General X-ray: Exam(s) Completed: Spine X-Ray(s): Lumbar AP / LAT / L5-S1 PERIPHERAL IV DATA: Not applicable SIGNED BY: RT Tom(Cristobal) January 15, 2024 10:42 [facility]07-08-2024 History of Present illness Narrative* Melonie Granado RT(Cristobal) - 01/15/2024 10:42 AM EDT Radiology Service Progress Note PATIENT NAME: Christian Noyola DATE OF SERVICE: January 15, 2024 TIME: 10:42 AM PATIENT IDENTITY VERIFICATION COMPLETED USING TWO (2) IDENTIFIERS: Name and Date of confirmedby patient verbally. FALL SCREENING: Has the patient had 2 falls in the last year or 1 fall with injury or currently using an Ambulatory Assistive Device (Walker, Cane, Wheelchair, Crutches, etc.)? No PATIENT GENDER DATA: Female. status: : No status: N/A PATIENT RELEVANT IMPLANT DATA REVIEWED: Not Applicable PATIENT PRESENTS WITH AN IMPLANTABLE OR ATTACHED INTERPRETER TRANSLATOR: No RADIOLOGY DEPARTMENT: General X-ray: Exam(s) Completed: Spine X-Ray(s): Lumbar AP / LAT / L5-S1 PERIPHERAL IV DATA: Not applicable SIGNED BY: RT Tom(R) January 15, 2024 10:42 AM documented in this encounterBethesda North Hospital06-20-2024 NoteHNO ID: [id number] Author: LITZY TODD APRN.CHILD AND FAMILY SERVICES WORKER Service: ? Author Type: Nurse Practitioner Type: [...] which included preparing to see the patient, poik-of-fkox patient care, completing clinical documentation, obtaining and/or reviewing separately obtained history, performing a medically appropriate examination, counseling and educating the patient/family/caregiver, and ordering medications, tests, or procedures. SIGNATURE: Litzy Todd APRN.CNP PATIENT NAME: Christian Noyola DATE: December 28, 2023 TIME: 12:52 PM PAGER:[facility] [id number] History of Present illness Narrative* Litzy Todd APRN.DONTE - 12/28/2023 12:52 PM EDT SPINE SURGERY FOLLOW UP This is an [...] which included preparing to see the patient, zhii-sj-smoj patient care, completing clinical documentation, obtaining and/or reviewing separately obtained history, performing a medically appropriate examination, counseling and educating the pat ient/family/caregiver, and ordering medications, tests, or procedures. SIGNATURE: Litzy Todd APRN.CNP PATIENT NAME: Christian Noyola DATE: December 28, 2023 TIME: 12:52 PM PAGER: documented in this encounterBethesda North Hospital06-10-2024 Telephone encounter Note * Telephone Encounter - Vinod Morton RN - 12/18/2023 11:08 AM EDT Called patient. Patient reported a 101 degree fever with chills, Saturday 12/16. Patient reports that Today she feels better and has no fever. Patient denies any redness, swelling, or drainage with her incision. Patient instructed to call us back with any changes or If her fever/ chills return. [facility]06-10-2024 Miscellaneous Notes* Telephone Encounter - Vinod Mortno RN - 12/18/2023 11:08 AM EDT Called patient. Patient reported a 101 degree fever with chills, Saturday 12/16. Patient reports that Today she feels better and has no fever. Patient denies any redness, swelling, or drainage with her incision. Patient instructed to call us back with any changes or If her fever/ chills return. * Telephone Encounter - Emily Ellis - 12/18/2023 9:27 AM EDT Pt phoned reporting fever with chills on Saturday 12/16 post op. Surgery was Thursday 12/14. Please call and advise Pt phone # [phone] documented in this encounterBethesda North Hospital06-10-2024 Telephone encounter Note * Telephone Encounter - Emily Ellis - 12/18/2023 9:27 AM EDT Pt phoned reporting fever with chills on Saturday 12/16 post op. Surgery was Thursday 12/14. Please call and advise Pt phone # [phone] [facility]06-08-2024 NoteHNO ID: [id number] Author: MAURIZIO FITCH RN Service: Nursing Author Type: Registered Nurse Type: Progress Notes Filed: 12/16/2023 15:19 Note Text: Pt dc home with daughter , all needs met questions answered pt verb understanding ofdc [facility]06-08-2024 NoteHNO ID: [id number] Author: LUCIANO BOSCH MD Service: General Internal [...] MD DATE: December 16, 2023 TIME: 11:48 [facility]06-08-2024 NoteHNO ID: [id number] Author: NOTE, INTERFACE, ? Service: ? Author Type: ? Type: Progress Notes Filed: 12/16/2023 03:26 Note Text: Epic Scheduled Downtime: 12/16/2023 1:00:00 AM to 12/16/2023 3:02:00 [facility]06-07-2024 NoteHNO ID: [id number] Author: NILDA BORGES APRN.ACCOUNTS RECEIVABLE MANAGER Service: ? Author Type: Nurse Instructional Technology Instructor Type: Anesthesia Procedure Notes Filed: 12/15/2023 11:39 Note Text: ANESTHESIOLOGY PROCEDURE NOTE Airway General Information Procedure Start Time/Medication Administration: 12/15/2023 11:27 AM Procedure End Time: 12/15/2023 11:27 AM Patient location during procedure: OR Staffing ACCOUNTS RECEIVABLE MANAGER: Nilda Borges APRN.ACCOUNTS RECEIVABLE MANAGER Performed by: ROBINSON Indications and Patient Condition [...] 1 Airway not difficult SIGNATURE: Nilda Borges APRN.ACCOUNTS RECEIVABLE MANAGER PATIENT NAME: Christian Noyola DATE: December 15, 2023 TIME: 11:39 AM CSN: [id number] Telephone encounter Note* Telephone Encounter - Debbi Brizuela RN - 12/05/2023 2:54 PM EDT Spoke with patient and answered questions. Patient also needs a refill of gabapentin. Confirmed pharmacy. [facility]05-28-[facility]24 Miscellaneous Notes* Telephone Encounter - Debbi Brizuela RN - 12/05/2023 2:54 PM EDT Spoke with patient and answered questions. Patient also needs a refill of gabapentin. Confirmed pharmacy. * Telephone Encounter - Maura Henley - 12/05/2023 11:54 AM EDT Patient would like to speak to the nurse regarding her medications before her surgery on December 14. She can be reached at [phone] documented in this encounterBethesda North Hospital05-28-2024 Telephone encounter Note * Telephone Encounter - Maura Henley - 12/05/2023 11:54 AM EDT Patient would like to speak to the nurse regarding her medications before her surgery on December 14. She can be reached at [phone] [facility]05-08-2024 Instructions* Patient Instructions* Georgette Santos APRN.CHILD AND FAMILY SERVICES WORKER - 11/15/2023 1:10 PM EDT PATIENT PREOPERATIVE INSTRUCTIONS Jorge Desai MD has scheduled you for your procedure at this surgery center: [facility]: [phone] --[address] [place] [address]. On your scheduled day of surgery, please [...] the morning and evening for 5 days priorto and including day of surgery. If you [...] Procedures: - YOU MUST HAVE A RESPONSIBLE BUSINESS SERVICES ANALYST TAKE YOU HOME. A USPS LETTER CARRIER OR ENVIRONMENTAL PROGRAM MANAGER CANNOT BE MADE A RESPONSIBLE BUSINESS SERVICES ANALYST. - We recommend that a responsible person stays with you overnight to take care of you. - You cannot stay in a hotel alone after outpatient surgery. You will not be permitted to have yoursurgery, if you do not have someone to [...] Advance Directive, please fax a copy to [phone] or email to for it to be added to your chart. If you do not have an Advance Directive, you can find the appropriate form and more information at [email or web address]. We recommend that youcomplete the Advance Directive form found on the website and bring it with you the day of your surgery. It can be witnessed and scanned into your chart that day. Georgette Santos APRN.DONTE documented in this encounterBethesda North Hospital05-08-2024 History and physical note * Georgette Santos APRN.CNP - 11/15/2023 1:00 PM EDT HISTORY AND PHYSICAL EXAMINATION SERVICE DATE: 11/15/2023 [...] Jorge Desai for consultation. My final recommendation willbe communicated back to the requesting physician by [...] 35 kg/m^2 Non-male patient STOP-Bang Score: 3 [id number] Score: Age: 65-74 Sex: female CHF history: No Hypertension history: Yes Stroke/TIA/thromboembolism history: No Vascular disease history: No Diabetes history: No [id number] Score: 3 ARISCAT Score: Age: 51-80 Preoperative [...] Eaton present: no Lip Bite Test: II Microretrognathia/Micronagthia/Recessed Chin: No DENTAL Dental findings: teeth intact. [...] COVID-19 original vaccine, age 12+ yr, monovalent (PFIZER- BIONTECH - STAPLETON TOP) 05/08/2021 Imm Admin: COVID-19 original vaccine, age 12+ yr, monovalent (PFIZER- BIONTECH - PURPLE TOP) Only the first 5 history entries have been loaded, but more history exists. REVIEW OF SYSTEMS: PAIN ASSESSMENT: Pain Pain Level: 2 Pain Location: Back-Lower Description: Radiating, Sore, Tingling Duration Units: Years Frequency: Continuous General: No weight loss, malaise or fevers. Neuro: No history of TIA's, stroke, ACCOUNT SERVICE REPRESENTATIVE tumor, impaired sensorium, hemiplegia, paraplegia or quadraplegia. No neurological symptoms or problems. Respiratory: No history of current cough or dyspnea, or pneumonia in the past 6 weeks. No history of respiratory/pulmonary symptoms or problems. Cardiovascular: Positive for: Hypertension no history of angina, CHF, NM, cardiac surgery or stents. Denies rest pain, gangrene or revascularization/amputation for PVD GI: No history of GI symptoms or problems. No history of esophageal varices, recent ascites, or ETOH greater than 2 drinks per day. : No history of dysuria, frequency or incontinence,, stones or chronic kidney disease, No difficulty urinating, nocturia > 1 time per night or hematuria CLAIMS ADJUSTOR: Negative for abnormal vaginal bleeding, abnormal vaginal discharge. : Denies, No LMP recorded. Patient is postmenopausal. Endocrine: No history of diabetes. Has not taken steroids within the past 30 days. No history of endocrinological symptoms or problems. Hematology: No history of bleeding or clotting disorder. Pt is not taking anti- coagulation or platelet medications. No history of hematological [...] Christian Noyola DATE: 11/15/2023 TIME: 1:27 PM [facility]05-08-2024 History and physical note* Georgette Santos APRN.DONTE - 11/15/2023 1:00 PM EDT HISTORY AND PHYSICAL EXAMINATION SERVICE DATE: 11/15/2023 [...] Jorge Desai for consultation. My final recommendation willbe communicated back to the requesting physician by [...] 35 kg/m^2 Non-male patient STOP-Bang Score: 3 [id number] Score: Age: 65-74 Sex: female CHF history: No Hypertension history: Yes Stroke/TIA/thromboembolism history: No Vascular disease history: No Diabetes history: No [id number] Score: 3 ARISCAT Score: Age: 51-80 Preoperative [...] Eaton present: no Lip Bite Test: II Microretrognathia/Micronagthia/Recessed Chin: No DENTAL Dental findings: teeth intact. [...] COVID-19 original vaccine, age 12+ yr, monovalent (PFIZER- BIONTECH - STAPLETON TOP) 05/08/2021 Imm Admin: COVID-19 original vaccine, age 12+ yr, monovalent (PFIZER- BIONTECH - PURPLE TOP) Only the first 5 history entries have been loaded, but more history exists. REVIEW OF SYSTEMS: PAIN ASSESSMENT: Pain Pain Level: 2 Pain Location: Back-Lower Description: Radiating, Sore, Tingling Duration Units: Years Frequency: Continuous General: No weight loss, malaise or fevers. Neuro: No history of TIA's, stroke, ACCOUNT SERVICE REPRESENTATIVE tumor, impaired sensorium, hemiplegia, paraplegia or quadraplegia. No neurological symptoms or problems. Respiratory: No history of current cough or dyspnea, or pneumonia in the past 6 weeks. No history of respiratory/pulmonary symptoms or problems. Cardiovascular: Positive for: Hypertension no history of angina, CHF, NM, cardiac surgery or stents. Denies rest pain, gangrene or revascularization/amputation for PVD GI: No history of GI symptoms or problems. No history of esophageal varices, recent ascites, or ETOH greater than 2 drinks per day. : No history of dysuria, frequency or incontinence,, stones or chronic kidney disease, No difficulty urinating, nocturia > 1 time per night or hematuria CLAIMS ADJUSTOR: Negative for abnormal vaginal bleeding, abnormal vaginal discharge. : Denies, No LMP recorded. Patient is postmenopausal. Endocrine: No history of diabetes. Has not taken steroids within the past 30 days. No history of endocrinological symptoms or problems. Hematology: No history of bleeding or clotting disorder. Pt is not taking anti- coagulation or platelet medications. No history of hematological [...] 11/15/2023 TIME: 1:27 PM documented in this encounter[facility] Miscellaneous Notes* Telephone Encounter - Debbi Brizuela RN - 09/05/2023 9:49 AM EST Surgery date moved to 12/15/23. * Telephone Encounter - Tanya Sahni - 09/05/2023 9:26 AM EST Patient called to speak with Dr Desai's nurse. She would like to accept a surgery date of MondayDecember 14. She will wait for it to show up on her MyChart. documented in this encounterBethesda [facility] Hospital02-26-2024 NoteHNO ID: [id number] Author: JORGE DESAI MD Service: ? Author [...] 5 4 Pain Location: Leg-Right Back Description: Pressure;Radiating;Sore;Tightness Sore;Radiating;Other: See comment Duration Units: Hours -- [...] outcomes of the proc (more content not included)...[facility] [id number] Evaluation note* Encounter Date Diagnosis Assessment Notes Treatment Notes Treatment Clinical Notes Jun, Adverse effect of an giotensin 2 receptor antagonist, initial encounter (ICD-10 - T46.5X5A) Stop ARB immediately Go to ER for difficult swallowing or breathing Benadryl and Claritin taken as instructed. Jun,Oropharyngeal dysphagia (ICD-10 - R13.12)Monitor symptoms closely and go to ER for swelling, SOB or increased difficulty swallowing. Jun,rimary hypertension (ICD-10 - I10)This patient is instructed to consume a healthy, low-fat, low-salt diet. They are also encouraged to continue exercise to achieve/maintain a normal BMI. Stop ARB and increase Amlodipine to 5mg bid [facility] Other 11-09-2023 Evaluation note* Encounter Date Diagnosis Assessment Notes Treatment Notes Treatment Clinical Notes May, Primary hypertension (ICD-10 - I 10) [facility] Other 11-02-2023 Evaluation note* Encounter Date Diagnosis Assessment Notes Treatment Notes Treatment Clinical Notes May, Primary hypertension (ICD-10 - I 10) This patient is instructed to consume a healthy, low-fat, low-salt diet. They are also encouraged to continue exercise to achieve/maintain a normal BMI. Patient is instructed on home BP measurements: - rest for 5 minutes w/o talking- positioned w/ feeton floor and arm supported- average best 2/3 readings w/ goal < 135/85 _update office in couple weeks May,Hypertensive retinopathy of both eyes (ICD-10 - H35.033)Improve control of BP Improve cholesterol to help w/ primary prevention of ASCVD Healthy, low fat/salt diet and exercise May,Hyperlipidemia type II (ICD-10 - E78.01)Instructed on diet and exercise with initiation of statin therapy.Discussed the beneficial effects of lowering cholesterol in reducing the risk for cerebrovascular and cardiovascular disease. LDL > 190 w/ hypertensive retinopathy. Recommend initiating statin for cholesterol lowering properties and anti- inflammatory benefits May,ain in right leg (ICD-10 - M79.604)Normal neuromuscular function Normal pulses w/ DP, PT Negative Astrid's sign Reassure for now, reviewed s/s DVT, claudication, sciatica May,ain in left leg (ICD-10 - M79.605)Normal neuromuscular function Normal pulses w/ DP, PT Negative Astrid's sign Reassure for now, reviewed s/s DVT, claudication, sciatica May,Lumbar spondylosis (ICD-10 - M47.816) May,rug-induced constipation (ICD-10 - K59.03)Increase fluids to 48- 64oz daily Increase fiber and continue Metamucil. Diet increased w/ prunes and applesauce. Stool softener and Miralax optional [facility] Other 09-12-2023 Evaluation note* Encounter Date Diagnosis Assessment Notes Treatment Notes Treatment Clinical Notes Mar, Primary hypertension (ICD-10 - I 10) [facility] Other 08-13-2023 Evaluation note* Encounter Date Diagnosis Assessment Notes Treatment Notes Treatment Clinical Notes Feb, Primary hypertension (ICD-10 - I 10) [facility] Other 08-03-2023 Evaluation note* Encounter Date Diagnosis Assessment Notes Treatment Notes Treatment Clinical Notes Feb, Primary hypertension (ICD-10 - I 10) [facility] Other 05-30-2023 NoteCONSULTATION CONSULTATION DATE: 12/06/2022 TO: [...] our patients to inform us about any baom-toq-yqwwsly medications or herbal remedies/nutritional supplements/alternative remedies. 2. [...] treatment options with their primary care provider.[facility] [id number] Note CONSULTATION CONSULTATION DATE: 11/03/2022 TO: Jordan [...] our patients to inform us about any dysp-lfy-apmxiab medications or herbal remedies/nutritional supplements/alternative remedies. 2. [...] treatment options with their primary care provider.[facility] [id number] Note CONSULTATION CONSULTATION DATE: 10/06/2022 TO: Jordan [...] regimen of Neurontin 300 mg b.i. d.[facility] [id number] Miscellaneous Notes* Telephone Encounter - Debbi Brizuela RN - 09/09/2022 2:52 PM EST Will forward for review. Scan on 09/08/2022 2:37 PM by External Provider: Spine Injection * Telephone Encounter - Tanya Karma Pss - 09/09/2022 2:44 PM EST Received spine injection report by fax. Scanned to patient's chart for provider review. documented in this encounterBethesda North Hospital03-02-2023 NoteCONSULTATION CONSULTATION DATE: 09/08/2022 HISTORY: This is a very pleasant, 72-year-old female who returns to the clinic, status post lumbar epidural steroid injection completed on 08/02/2022. The patient states she received 25% relief for 2-3 weeks. Patient was [facility] by Dr. [facility]. The patient does have multilevel [...] care will be established at that time.[facility] 09-05-2022 History of Present illness Narrative* Jorge [...] ordered 2. Follow up: 2 months SIGNATURE: Joreg Desai MD PATIENT NAME: Christian Noyola DATE: September 05, 2022 TIME: 12:57 PM PAGER: I, Preeti Mireles, attest that this document has been prepared under the direction and in the presence of Jorge Desai MD on September 05, 2022 at 1:23 PM. documented in this encounterBethesda North Hospital01-10-2023 NoteCONSULTATION CONSULTATION DATE: 07/19/2022 HISTORY OF [...] The patient is hoping to go to [place] in a few weeks. We have also strongly recommended to the patient for a neurosurgical consult, given the multiple levels the patient has pathology. I believe the surgical consult will also help define for the patient progression components. In the interim, the patient will also continue with extension exercises. The patient understands and would like to proceed. CC: Jordan Avitia D.O.[facility] note* Diagnosis Degenerative scoliosis- Primary documented in this encounter [facility] noteNo [employer] Other Evaluation note* Diagnosis Pre-op testing- Primary Preoperative examination, unspecified Spinal stenosis, lumbar region with neurogenic claudication documented in this encounter [facility] note* Diagnosis Pre-op evaluation- Primary Preoperative examination, [...] morning of surgery documented in this encounter [facility] note* Diagnosis S/P lumbar fusion- Primary Arthrodesis status documented in this encounter [facility] note* Diagnosis S/P lumbar fusion Arthrodesis status documented in this encounter [facility] note* Diagnosis Lumbar stenosis with neurogenic claudication- Primary Spinal stenosis, lumbar region, with neurogenic claudication documented in this encounter [facility] note* Diagnosis Onset Date Resolution Status GERD (gastroesophageal reflux disease) acuteHypercholesterolemiaacuteHypertensionacuteLumbar spondylosisacuteMultiple sclerosisacuteMedicare annual wellness visit, subsequentnoneactiveScreening mammogram for breast cancernoneactive [facility] Work Phone: Evaluation note* Diagnosis Onset Date Resolution Status GERD (gastroesophageal reflux disease) acuteHypercholesterolemiaacuteHypertensionacuteLumbar spondylosisacuteMedicare annual wellness visit, subsequentnoneactiveScreening mammogram for breast cancer noneactive [facility] Work Phone: Evaluation note* Diagnosis Onset Date Resolution Status GERD (gastroesophageal reflux disease) acuteHypercholesterolemiaacuteHypertensionacuteLumbar spondylosisacuteMedicare annual wellness visit, subsequentnoneactiveScreening mammogram for breast cancer noneactiveIFG (impaired fasting glucose)acuteTrigger fingeracute [facility] Work Phone: Evaluation note* Diagnosis Pain of right thumb- Primary Trigger finger of right thumb [facility] Diagnosis Pain of right thumb- Primary Trigger finger of right thumb [facility]* Diagnosis Trigger finger of right thumb- Primary [facility]* Diagnosis S/P trigger finger release- Primary [facility]* Diagnosis S/P trigger finger release- Primary Carpal tunnel syndrome of right wrist [facility]* Diagnosis Onset Date Resolution Status Admit Date Abdominal pain acuteAugust 2024 1:41pmAbnormal CT scan, pelvisacuteAugust 2024 1:41pm GERD (gastroesophageal reflux disease)acuteAugust 2024 1:41pm HypercholesterolemiaacuteAugust 2024 1:41pmHypertensionacuteAugust 2024 1:41pmIFG (impaired fasting glucose)acuteAugust 2024 1:41pmLumbar spondylosisacuteAugust 2024 1:41pmMedicare annual wellness visit, subsequentnoneactiveAugust 2024 1:41pm [facility] Work Phone: Evaluation note* Diagnosis Thumb pain, left- Primary Trigger finger of left thumb [facility]* Diagnosis Trigger finger of left thumb- Primary Pain of left thumb documented [facility] this encounter [facility] HealthcareHistory general Narrative - Reported* Type Description Date Medical History MS (multiple sclerosis) Medical HistoryGastroesophageal reflux disease with esophagitis without hemorrhageMedical HistoryPrimary hypertensionMedical HistoryValgus deformity, not elsewhere classified, right ankleMedical HistoryArthritis of right shoulder regionMedical HistoryLumbar spondylosisMedical HistoryHyperlipidemia type II Surgical Historyback surgery x's 2Hospitalization HistorySEE SURGICAL HX [facility] Other Hospital Discharge instructionsAmbulatory Orders* Referral to Orthopedic Surgery Location: None [facility] Work Phone: InstructionsNot on filedocumented in this encounter [facility] for referral (narrative)* Outpatient Procedure (Routine) - Pending ReviewSpecialtyDiagnoses / ProceduresReferred By Contact Referred To ContactREG[facility] Diagnoses Pre-op evaluation Pre-op testing Procedures ECG COMPLETE ECG ROUTINE ECG W/LEAST 12 LDS W/I&R Georgette Santos APRN.CHILD AND FAMILY SERVICES WORKER [address] [place] [address] [facility] [address] [place] [address] Referral IDStatusReasonStart DateExpiration DateVisits RequestedVisits [id number] Review Auto-Generated Referral [facility] for referral (narrative)* Diagnostic Procedure Only (Routine) - Pending ReviewSpecialtyDiagnoses / ProceduresReferred By Contact Referred To ContactXR IMAGING Diagnoses S/P lumbar fusion Procedures XR LUMBAR LIMITED 2V AP/LAT RADEX SPINE LUMBOSACRAL 2/3 VIEWS Litzy Todd, GEOINT ANALYST.CHILD AND FAMILY SERVICES WORKER [address] [place] [address] Xr Imaging [facility]95 Referral IDStatusReasonStart DateExpiration DateVisits RequestedVisits [id number] Review Auto-Generated Referral * Physical Therapy (Routine) - AuthorizedSpecialtyDiagnoses / ProceduresReferred By ContactReferred To ContactREHAB AND SPORTS THERAPY INS Diagnoses S/P lumbar fusion Procedures CONSULT TO PHYSICAL THERAPY PHYSICAL THERAPY EVALUATION HIGH COMPLEX 45 MINS Litzy Todd GEOINT ANALYST.CHILD AND FAMILY SERVICES WORKER [address] [place] [address] [facility] [address] [place] [id number] Referral IDStatusReasonStart DateExpiration DateVisits RequestedVisits [id number] PCP Requested Referral Auto-Generated Referral [facility] for referral (narrative)* Diagnostic Procedure Only (Routine) - ClosedSpecialtyDiagnoses / ProceduresReferred By ContactReferred To ContactXR IMAGING Diagnoses S/P lumbar fusion Procedures XR LUMBAR LIMITED 2V AP/LAT RADEX SPINE LUMBOSACRAL 2/3 VIEWS Litzy Todd, GEOINT ANALYST.CHILD AND FAMILY SERVICES WORKER [address] [place] [address] Xr Imaging [facility]95 Referral IDStatusReasonStart DateExpiration DateVisits RequestedVisits [id number] Auto-Generated Referral [facility] for referral (narrative)No reason for referral information availableUpper [facility] Medical Center Work Phone: Reason for visit Narrative* Diagnostic Procedure Only (Routine) - ClosedSpecialtyDiagnoses / ProceduresReferred By ContactReferred To ContactXR IMAGING Diagnoses S/P lumbar fusion Procedures XR LUMBAR LIMITED 2V AP/LAT RADEX SPINE LUMBOSACRAL 2/3 VIEWS Litzy Todd, GEOINT ANALYST.CHILD AND FAMILY SERVICES WORKER [address] [place] [address] Xr Imaging [place] [address] Referral IDStatusReasonStart DateExpiration DateVisits RequestedVisits [id number] Auto-Generated Referral [facility] Summary Purpose Family History Relationship Condition Age at Onset Recorded Date/T flora father Unknown Diabetes mellitusUnknownMalignant neoplasmUnknownfatherMalignant neoplasmUnknown motherDeceasedUnknownHeart diseaseUnknownHypertensionUnknown Advance Directives TypeDate RecordedPatient RepresentativeExplanationAdvance Directive(s)12/15/2023 7:18 AMTypeDate RecordedPatient RepresentativeExplanationAdvance Directive(s) 12/15/2023 7:18 AM Advance Directive Response Recorded Date/ Time Advance Directives No February 07 024 10:53am Reason for Referral SpecialtyDiagnoses / ProceduresReferred By ContactReferred To Contact Diagnoses Pre-op testing Procedures REFER TO [facility] - PRE ANESTHESIA CONSULTATION CLINIC OFFICE/OUTPATIENT [facility] 60 MINUTES Jodi Vega PA-C [address] [place] [id number] Referral IDStatusReasonStart DateExpiration DateVisits RequestedVisits [id number] PCP Requested Referral / Chief Complaint and Reason for Visit Chief Complaint medicare wellness Reason for Visit GERD (gastroesophage al reflux disease) Hypercholesterolemia Hypertension Lumbar spondylosis Multiple sclerosis Medicare annual wellness visit, subsequent Screening mammogram for breast cancer Chief Complaint medicare wellness stiff thumbReason for VisitGERD (gastroesophageal reflux disease) Hypercholesterolemia Hypertension Lumbar spondylosis Medicare annual wellness visit, subsequent Screening mammogram for breast cancer Chief Complaint medicare wellness stiff thumbReason for VisitGERD (gastroesophageal reflux disease) Hypercholesterolemia Hypertension Lumbar spondylosis Medicare annual wellness visit, subsequent Screening mammogram for breast cancer IFG (impaired fasting glucose) Trigger finger Chief Complaint Admit Date Wellness February 11, 2025 1:4 1pm Reason for Visit Admit Date Abdominal pain February 11, 2025 1:[address] scan, pelvis February 11 1:41pm GERD (gastroesophageal reflux disease) A ugust 2024 1:41pm Hypercholesterolemia February 11, 2025 1: 41pm Hypertension February 11, 2025 1:4 1pm IFG (impaired fasting glucose) February 1:41pm Lumbar spondylosis February 11, 2025 1:4 1pm Medicare annual wellness visit, subseque nt February 11, 2025 1:41pm Additional Source Comments INFORMATION SOURCE (unrecogn ized section and content) DATE CREATED AUTHOR 08/26/2021 [facility] DATE CREATED AUTHOR AUTHOR'S ORGANIZ ATION 12/16/2022 [facility] DATE CREATED AUTHOR AUTHOR'S ORGANIZ ATION 02/28/2023 [facility] DATE CREATED AUTHOR AUTHOR'S ORGANIZ ATION 12/18/2023 [facility] DATE CREATED AUTHOR AUTHOR'S ORGANIZ ATION 01/16/2024 [facility] DATE CREATED AUTHOR AUTHOR'S ORGANIZ ATION 01/28/2024 [facility] DATE CREATED AUTHOR AUTHOR'S ORGANIZ ATION 05/16/2024 [facility] DATE CREATED AUTHOR AUTHOR'S ORGANIZ ATION 04/18/2025 [facility] EPIC Source Comments (unrecognize d section and content) In the event this informatio n is protected by the Federal Confidentiality of Alcohol and Drug Abuse Patient Records regulations: The Federal rules restrict any use of the information to criminally investigate or prosecute any alcohol or drug abuse patient.[facility] HospitalIn the event this information is protected by the Federal Confidentiality of Alcohol and Drug Abuse Patient Records regulations: The Federal rules restrict any use of the information to criminally investigate or prosecute any alcohol or drug abuse patient.[facility] HospitalIn the event this information is protected by the Federal Confidentiality of Alcohol and Drug Abuse Patient Records regulations: The Federal rules restrict any use of the information to criminally investigate or prosecute any alcohol or drug abuse patient.[facility] HospitalIn the event this information is protected by the Federal Confidentiality of Alcohol and Drug Abuse Patient Records regulations: The Federal rules restrict any use of the information to criminally investigate or prosecute any alcohol or drug abuse patient.[facility] HospitalIn the event this information is protected by the Federal Confidentiality of Alcohol and Drug Abuse Patient Records regulations: The Federal rules restrict any use of the information to criminally investigate or prosecute any alcohol or drug abuse patient.[facility] HospitalIn the event this information is protected by the Federal Confidentiality of Alcohol and Drug Abuse Patient Records regulations: The Federal rules restrict any use of the information to criminally investigate or prosecute any alcohol or drug abuse patient.[facility] HospitalIn the event this information is protected by the Federal Confidentiality of Alcohol and Drug Abuse Patient Records regulations: The Federal rules restrict any use of the information to criminally investigate or prosecute any alcohol or drug abuse patient.[facility] HospitalIn the event this information is protected by the Federal Confidentiality of Alcohol and Drug Abuse Patient Records regulations: The Federal rules restrict any use of the information to criminally investigate or prosecute any alcohol or drug abuse patient.[facility] HospitalIn the event this information is protected by the Federal Confidentiality of Alcohol and Drug Abuse Patient Records regulations: The Federal rules restrict any use of the information to criminally investigate or prosecute any alcohol or drug abuse patient.[facility] HospitalIn the event this information is protected by the Federal Confidentiality of Alcohol and Drug Abuse Patient Records regulations: The Federal rules restrict any use of the information to criminally investigate or prosecute any alcohol or drug abuse patient.[facility] HospitalIn the event this information is protected by the Federal Confidentiality of Alcohol and Drug Abuse Patient Records regulations: The Federal rules restrict any use of the information to criminally investigate or prosecute any alcohol or drug abuse patient.[facility] HospitalIn the event this information is protected by the Federal Confidentiality of Alcohol and Drug Abuse Patient Records regulations: The Federal rules restrict any use of the information to criminally investigate or prosecute any alcohol or drug abuse patient.[facility] Reason for Visit (unrecogniz ed section and content) ReasonCommentsNewReasonCommentsReceived Outside Medical RecordsReasonComments Surgery DateSpecialtyDiagnoses / ProceduresReferred By ContactReferred To Contact Diagnoses Pre-op testing Procedures REFER TO PACC - PRE ANESTHESIA CONSULTATION CLINIC OFFICE/OUTPATIENT [facility] 60 MINUTES Jodi Vega PA-C [address] [place] [address] Referral IDStatusReasonStart DateExpiration DateVisits RequestedVisits [id number] PCP Requested Referral /[id number] OpReasonCommentsRadiology XRReason CommentsCare Coordinator - OtherReasonCommentsFollow UpReasonCommentsFeverReason CommentsPain Care Teams (unrecognized sec tion and content) Team Status: Active Member Role Status Dates Jordan Avitia , Primary Care Provider Active Team Status: Inactive Member Role Status Dates Jordan Avitia DO Primary Care Provide r, Attending Provider Active Start: February 08, 2024 End: February 08, 2024 Team Status: Active Member Role Status Dates Jordan Avitia , DO Primary Care Provide r, Attending Provider Active Start: April 11, 2024 Team Status: Inactive Member Role Status Dates Jordan Avitia , DO Primary Care Provide r, Attending Provider Active Start: May 07, 2024 End: May 07, 2024Team MemberRelationshipSpecialtyStart DateEnd Date Jordan Avitia MD [address] [place] [id number] PCP - GeneralInternal Lxjzzkyg34/30/23Team MemberRelationshipSpecialtyStart Date End Date Jordan Avitia MD [address] [place] [id number] PCP - GeneralInternal Xwwmabca81/30/23Team MemberRelationshipSpecialtyStart Date End Date Jordan Avitia MD [address] [place] [address] PCP - GeneralInternal Jbvunsky93/30/23Team MemberRelationshipSpecialtyStart Date End Date Jordan Avitia MD [address] [place] [address] PCP - GeneralInternal Aaeuphmk94/30/23Team MemberRelationshipSpecialtyStart Date End Date Jordan Avitia MD [address] [place] [address] PCP - GeneralInternal Rvpfvqmc47/30/23Team MemberRelationshipSpecialtyStart Date End Date Jordan Avitia MD [address] [place] [id number] PCP - GeneralInternal Zybukhcu15/30/23Team MemberRelationshipSpecialtyStart Date End Date Jordan Avitia MD [address] [place] [address] PCP - GeneralInternal Bacunlqo80/30/23Team MemberRelationshipSpecialtyStart [place] [address] [place] [address] PCP - GeneralInternal Dqessuhd29/5/24 Team Status: Inactive Member Role Status Dates Jordan Avitia DO Primary Care Provider Active Start: February 11, 2025 End: February 11enkaty Avitia DOAttending ProviderActiveStart: February 11, 2025 End: February 11, 2025Team MemberRelationshipSpecialtyStart DateEnd Date Jordan Avitia DO PCP - GeneralInternal Toortfsa11/30/23Team MemberRelationshipSpecialtyStart Date End Date Jordan Avitia DO PCP - GeneralInternal Yhiiafhg88/30/23Team MemberRelationshipSpecialtyStart Date End Date Jordan Avitia DO [address] [place] [address] PCP - GeneralInternal Medicine04/07/25Team MemberRelationshipSpecialtyStart Date End Date Jordan Avitia DO [address] [place] [id number] PCP - GeneralInternal Medicine04/07/25 Goals (unrecognized section and content) Goals may [...] BE BASED ON THE PRIMARY CLINICAL RECORDS. [employer] provides no warranty or guarantee of the accuracy or completeness of information in this document.
--- OUTSIDE RECORDS SUMMARY | 2025-05-15 06:36 | XMS_ITS | Clinical Summary ---
Author Organization [facility] tem Address [id number] [address] [place] [address] Care Team Providers Care Electric Deicer Inspector Name Role Phone Jordan Castillo Primary Care Provider [phone] Allergies No known active allergies Medications MedicationSigDispense QuantityRefillsLast FilledStart DateEnd DateStatus amLODIPine (NORVASC) 5 mg tablet Take 1 tablet (5 mg total) by mouth in the morning.02/27/2024ctive olmesartan (BENICAR) 20 mg tablet Take 1 tablet (20 mg total) by mouth in the morning.03/07/2024ctive ibuprofen (MOTRIN) 400 mg tablet Take 1 tablet (400 mg total) by mouth every 6 (six) hours as needed for pain. Active ccqfqlch-scta-VA-calcium &mins (THERAGRAN-M) 9 mg iron-400 mcg tablet Take 1 tablet by mouth in the morning.Active Social History Tobacco UseTypesPacks/DayYears UsedDateSmoking Tobacco: FormerCigarettes Smokeless Tobacco: Never Tobacco Cessation:Counseling Given: Not Answered Alcohol UseStandard Drinks/WeekCommentsYes0 (1 standard drink = 0.6 oz pure alcohol)socialCommentsNoSex and Gender InformationValueDate RecordedSex Assigned at BirthNot on fileLegal DtzBrzgpd15/05/2024 9:16 AM ESTGender Identity Not on fileSexual OrientationNot on file Last Filed Vital Signs Vital SignReadingTime TakenCommentsBlood Pressure--Pulse--Temperature-- Respiratory Rate--Oxygen Saturation--Inhaled Oxygen Concentration--Beqfnc50.2 kg (190 lb)05/14/2024 12:15 PM ZBPDmgcmw228.6 cm (5' 4 )05/14/2024 12:15 PM ESTBody Mass Index32.6105/14/2024 12:15 PM EST Plan of Treatment Health MaintenanceDue DateLast DoneCommentsDepression Xumwdxtzz24/31/1962dult BMI Follow Up Plan1968Fall Risk Danuhnwbe55/31/2015DTaP,Tdap and Td Vaccines (2 - Td or Tdap)COVID-19 Vaccine (2024- season)/, 04/04/2023, 11/04/2022, Additional history exists Influenza Tlaafgy00/, 04/04/2023, 04/25/2022, Additional history existsAdult BMI Hoksmxzdi59Tobacco Vrayejmzd31/06/2025 4RSV ( or age 60+ yrs) (1 - 1-dose 75+ series)2025Zoster (Shingles) AppqemrIpnosivmd23/09/2024, 06/06/2023 Medical Devices Not on file [place] [address] [place] [address] Care Teams Team MemberRelationshipSpecialtyStart DateEnd Date Jordan Castillo DO [address] [place] [address] PCP - GeneralInternal Klctrfem73/5/24
[2025-05-15 07:52] LABS: Alanine Aminotransferase 59 U/L (14-59); Albumin Globulin Ratio 1.0; Albumin Level 3.7 g/dL (3.4-5.0); Alkaline Phosphatase 105 U/L (46-116); Aspartate Amino Transferase 38 U/L (15-37); Globulin 3.8 g/dL; Total Protein 7.5 g/dL (6.4-8.2)
== END 2025-05-15 06:34 | disposition home or self-care (01) ==
LOC: LAB 06:33
PROVIDERS: PCP Internal Medicine; Visit Provider Internal Medicine
DX: R74.01 Elevation of levels of liver transaminase levels (principal)
CPT/HCPCS: 36415; 80076

== ENCOUNTER 2025-05-30 08:01 | Outpatient (OUT) | payer MEDICARE, SELFPAY ==
--- OUTSIDE RECORDS SUMMARY | 2025-05-19 09:30 | XMS_ITS | Encounter Summary ---
Author Organization [facility] Address [address] [place] [address] Care Team Providers Care Solutions Engineer Name Role Phone JonathanJordan Primary Care Provider Reason for Visit * ReasonCommentsPre-op Visit Encounter Details DateTypeDepartmentCare Team (Latest Contact Info)Vxfxbbyhxln22/10/2025 9:30 AM ESTOffice Visit [facility] [address] [place] [address] Brody Castro, PROGRAM AND RESEARCH COORDINATOR [address] [place] [address] Pre-op exam (Primary Dx) Social History Tobacco UseTypesPacks/DayYears UsedDateSmoking Tobacco: NeverSmokeless Tobacco: NeverAlcohol UseStandard Drinks/WeekCommentsYes2 (1 standard drink = 0.6 oz pure alcohol)CommentsUnknownSex and Gender InformationValueDate RecordedSex Assigned at BirthNot on fileLegal XgpVvgrgc24/15/2023 7:21 PM EDTGender Identity Not on fileSexual OrientationNot on filedocumented as of this encounter Last Filed Vital Signs Vital SignReadingTime TakenCommentsBlood Pressure--Pulse--Temperature-- Respiratory Rate--Oxygen Saturation--Inhaled Oxygen Concentration--Vwrlob04.2 kg (190 lb)05/19/2025 9:19 AM ZCWAalzes120.6 cm (5' 4 )05/19/2025 9:19 AM ESTBody Mass Index32.6105/19/2025 9:19 AM ESTdocumented in this encounter Progress Notes * Brody Castro NP - 05/19/2025 9:30 AM EST Images from the original note were not included. GENERAL HISTORY AND PHYSICAL: NAME: Shoshana Noyola : 1950 HISTORY OF PRESENT ILLNESS: Shoshana Noyola is an 74 y.o. @ female. Here for surgery instructions left thumb trigger release June 02 @ [facility]. PAST MEDICAL HISTORY: Medical History[1] PAST SURGICAL HISTORY: Surgical History[2] SOCIAL HISTORY: Social History Occupational History Not on file Tobacco Use Smoking status: Never Smokeless tobacco: Never Substance and Sexual Activity Alcohol use: Yes Alcohol/week: 2.0 standard drinks of alcohol Types: 1 Cans of beer, 1 Standard drinks or equivalent per week Drug use: Never Sexual activity: Not Currently ALLERGIES: Allergies[3] MEDICATIONS: Current Outpatient Medications Medication Instructions acetaminophen (TYLENOL 8 HOUR) 650 mg, Every 8 hours PRN amLODIPine (Norvasc) 5 MG tablet Multiple Vitamins-Minerals (Multi For Her 50+) tablet olmesartan (BENICAR) 20 mg, Daily REVIEW OF SYSTEMS: Review of Systems Constitutional: Negative for fatigue, fever and unexpected weight change. Eyes: Negative for redness and visual disturbance. Gastrointestinal: Negative for abdominal pain. Denies Indigestion Musculoskeletal: See note: Skin: Negative for color change and rash. Neurological: Negative for light-headedness and numbness. Vitals: Body mass index is 32.61 kg/m??. PHYSICAL EXAM: Physical Exam Constitutional: General: She is not in acute distress. Appearance: Normal appearance. HENT: Head: Normocephalic and atraumatic. Right Ear: External ear normal. Left Ear: External ear normal. Nose: Nose normal. No rhinorrhea. Mouth/Throat: Mouth: Mucous membranes are moist. Pharynx: No posterior oropharyngeal erythema. Eyes: Extraocular Movements: Extraocular movements intact. Conjunctiva/sclera: Conjunctivae normal. Cardiovascular: Rate and Rhythm: Normal rate and regular rhythm. Pulses: Normal pulses. Heart sounds: No murmur heard. Pulmonary: Effort: Pulmonary effort is normal. No respiratory distress. Breath sounds: Normal breath sounds. No wheezing or rhonchi. Abdominal: Palpations: Abdomen is soft. Tenderness: There is no abdominal tenderness. Musculoskeletal: Cervical back: Normal range of motion and neck supple. Lymphadenopathy: Cervical: No cervical adenopathy. Skin: General: Skin is warm and dry. Findings: No erythema or rash. Neurological: General: No focal deficit present. Mental Status: She is alert and oriented to person, place, and time. Psychiatric: Mood and Affect: Mood normal. Behavior: Behavior normal. No orders of the defined types were placed in this encounter. ASSESSMENT: ICD-10-CM 1. Pre-op exam Z01.818 PLAN: This patient presents for preadmission testing for upcoming surgery. Complete history with medical,surgery, and current allergy and medication list obtained. Consent for surgery signed and witnessedafter verbal consent to perform surgery received. All questions answered and proposed surgery scheduled. SURGERY INSTRUCTIONS May PRE CERT SENT - MEDICARE Follow up in about 4 weeks (around 06/16/2025) for Post-Op June 16 @ 2:15 with Brody godoy Tully. [1] Past Medical History: Diagnosis Date Dry eyes April 2024 GERD (gastroesophageal reflux disease) Hepatitis HTN (hypertension) Hyperlipidemia [2] Past Surgical History: Procedure Laterality Date LUMBAR SPINE SURGERY 12/15/2023 Dr. Miller SHOULDER SURGERY 2019 Dr. Mathew TRIGGER FINGER RELEASE Right 05/15/2024 Dr. Miller RT Thumb [3] No Known Allergies documented in this encounter Plan of Treatment DateTypeDepartmentCare Team (Latest Contact Info)Euglqfysayr65/08/2025 2:15 PM ESTOffice Visit [facility] [address] [place] [address] Brody Castro NP [address] [place] [address] documented as of this encounter Visit Diagnoses Diagnosis Pre-op exam- Primary documented in this encounter Care Teams Team MemberRelationshipSpecialtyStart DateEnd Date Jordan Castillo DO [address] [place] [id number] PCP - GeneralInternal Medicine04/07/25documented as of this encounter
--- OUTSIDE RECORDS SUMMARY | 2025-05-20 06:22 | XMS_ITS | Continuity of Care Document ---
Author Organization [facility] Address [address] [place] [address] Phone Care Team Providers Care Head Men'S Golf Coach Name Role Phone Jonathan Jordan ROBERTS Primary Care Provider Jordan Castillo DO Attending Provider Care Teams Patient Care Team Team Status: Active Member Role/Relationship Status Dates Jordan Castillo DO Primary Care Provider Active Visit Care Team Team Status: Active Member Role/Relationship Status Dates Jordan Castillo DO Primary Care Provider Active Start: May 15, 2025 Klarissa Diamond ProviderActiveStart: May 15, 2025 Patient Care Team Team Status: Inactive Member Role/Relationship Status Dates Jordan Castillo DO Primary Care Provider Active Start: May 20, 2025 End: May 20enKlarissa Guzman ProviderActiveStart: May 20, 2025 End: May 20, 2025 Chief Complaint and Reason for Visit Chief Complaint Admit Date 3 month/surgical clearance May 10:18am Reason for Visit Admit Date Abdominal pain May 20, 2025 10:18am GERD (gastroesophageal reflux disease) N ovember 2024 10:18am Hypercholesterolemia May 20, 2025 10:18am Hypertension May 20, 2025 10:18am IFG (impaired fasting glucose) May 20, 2025 10:18am Lumbar spondylosis May 20, 2025 10:18am Allergies, Adverse Reactions, Alerts Allergen Type Severity Reaction Last Updated Verified Status No Known Allergies Allergy Unknown May 20, 2025 10:29amYesActive Social History Smoking Status Status Start Date End Date Date of Observa tion Ex-smoker (finding) June 19, 2023 8:45am Observation Status Observation Response Date of Response Legal Sex Female (finding) Sex Assigned At BirthFemaleDecember 1949 Family History Relationship Condition Age at Onset Recorded Date/T flora father Unknown Diabetes mellitusUnknownMalignant neoplasmUnknownfatherMalignant neoplasmUnknown motherDeceasedUnknownHeart diseaseUnknownHypertensionUnknownMalignant neoplasm Unknown Problems Active Problems Problem Diagnosis/Recorded Date Onset Date Stat us Elevated transaminase level February 08, 2024 2:46pm Un known Active Abnormal CT scan, pelvis February 11, 2025 1:39pm Unkno wn Active Metabolic dysfunction-associ ated steatotic liver disease (MASLD) February 08, 2024 2:46pm Unknown Acti ve Hepatitis February 08, 2024 2:46pm Unknown Acti ve Hypercholesterolemia February 07, 2024 6:29am Unknown Active IFG (impaired fasting glucose) February 08, 2024 2:50pm Unknown Active Trigger finger May 07, 2024 9:27am Unknown Active GERD (gastroesophageal reflux disease) February 07, 2024 6:29am Unknown Active Abdominal pain February 11, 2025 1:38pm Unknown Ac tive Hypertension February 07, 2024 6:29am Unknown Activ e Lumbar spondylosis February 07, 2024 6:29am Unknown Active Medications Medication Status Dose Units Route Directions Qty Days Refills S tart Date Stop Date End Date Reason(s) Instructions Adherence Olmesartan 20 mg tablet Discontinued 20 MG PO Daily 90 9 0 3 May 27, 2024 1:00pm May 12, 2025 6:56amAmlodipine 5 mg tabletActive0.ROUTE.ONEMHEK604Kncaid 10th, 2025 7:09amTAKE 1 TABLET BY MOUTH EVERY DAY FOR 90 DAYSComplies with drug therapyOlmesartan 20 mg dbnhluOiexkp68CWFURjfca77437Jshhjici 3rd, 2025 6:56am Complies with drug therapyAcetaminophen (Tylenol Extra Strength) 500 mg tablet Bseykj368PPUCPnvwb 6 hours as neededMay 20, 2025 12:00amComplies with drug therapyOlmesartan 20 mg qptjrtKsdvxejdubqr7MOSZTSijxfNahg 2023 11:00pmAugust 2023 10:13amFreeTextSig: TAKE 1 TABLET BY MOUTH EVERY DAY FOR 30 DAYS; Note: Source Status: Continue; Provider:Jonathan Ortega ( )Amlodipine 5 mg tabletDiscontinuedMGPOJuly 2023 11:00pmAugust 2023 10:13amFreeTextSig: TAKE 1 TABLET BY MOUTH EVERY DAY FOR 30 DAYS Orally Once a day; Note: Source Status: Continue; Provider: Jonathan Cordero Vowqlydfslwl-Xl-Clil-Minerals tabletActiveTABPOJuly 2023 11:00pmComplies with drug therapyCalcium Carbonate-Vitamin D2 500 mg(1,250mg) -200 unit tablet ActiveTABPODailyJuly 2023 11:00pmComplies with drug therapyIbuprofen 200 mg ergjioAcikqrbiwbvk743TZUNEqmv as neededJuly 2023 11:00pmNovember 2024 10:32amAmlodipine 5 mg uzdrrjZpgwvrgsrupw9UEAYLedpfEfvqgh 2023 10:13am February 08, 2024 10:26amOlmesartan 20 mg mtdkpyYkddwkwizyft15VKNDVrhshVxautf 2023 10:13amNovember 2023 1:00pmAmlodipine 5 mg epffkbKkbpmcvkyjgs0SS KZPrjyp40854Jhukpx 1st, 2024 10:25amAugust 2024 7:09am Immunizations Immunization Event Date Not Given Reason Dose Number Production Engine Repairer Lot Number Reason(s) Given Vaccine Information Statement (VIS) Detail Administration Location COVID-19 mRNA, Comirnaty (Pfizer) August 13, 2020 COVID-19 Comirnaty (Pfizer) Tri-Sucrose +February 15OVI mRNA Bivalent Booster (Pfizer)April 25OVI mRNA Bivalent Booster (Pfizer)November 04OVI mRNA Bivalent Booster (Pfizer)March 10, 2024influenza, unspecified formulationOctober 2017influenza, unspecified formulationAugust 2019influenza, unspecified formulationOctober 2021 influenza, unspecified formulationSeptneumococcal Conjugate Vaccine, 13 valentDecember 2014Pneumococcal Polysacc. Vaccine, 23 valent October 11, 2013Pneumococcal Polysacc. Vaccine, 23 valentOctober 2014 Tetanus, Diphtheria adult, 5 Lf pres free absOctober 2013 Relevant Diagnostic Tests and/or Laboratory Data Laboratory Results Test Collection Date/Time Result Date/Time Result Interpretation Reference Range Result Comment Performing Site Albumin/Globulin Ratio May 15, 2025 6:38am May 15, 2025 6:38am 1.0 AlbuminNovember 2024 6:38amNovember 2024 6:38am3.7 g/dL3.4-5.0Alkaline PhosphataseNov2024 6:38amNovember 2024 6:55nd271 U/L46-116 Alanine Aminotransferase (ALT/SGPT)May 15, 2025 6:38amNovember 2024 6:38am59 U/R21-07Oprwuyuls Amino Transf (AST/SGOT)May 15, 2025 6:38am May 15, 2025 6:38am38 U/LAbove high orrohk81-87Jrhwbl BilirubinNovember 2024 6:38amNovember 2024 6:38am0.1 mg/dL0.0-0.2GlobulinNov2024 6:38amNovember 2024 6:38am3.8 g/dLTotal BilirubinNovember 2024 6:38amNovember 2024 6:38am0.5 mg/dL0.2-1.0Total ProteinNovember 2024 6:38amNovember 2024 6:38am7.5 g/dL6.4-8.2 Vital Signs Vital Reading Result Reference Range Collection Date/Time Height 65 [in_i] May 20, 2025 10:53urZnpnxe23.63 kgNovember 2024 10:33amHeart Rate78 /sod72-521Tzdabdyc 2024 10:33amRespiratory rate12 /hpe70-82Njqntuog 2024 10:33amBP Geagupmy770 mm[Hg]100-140Nov2024 10:33amBP Diastolic 89 mm[Hg]60-100Nov2024 10:33amBMI (Body Mass Index)31.8 kg/m2 May 20, 2025 10:33am Advance Directives Advance Directive Response Recorded Date/ Time Advance Directives No February 07 9:53am Insurance Providers Guarantor Beverley Ruiz Address [address] [place], [place] [address]cayden [facility] [address]Atjvcif Info.Home Phone: Coverage Status Update:2024 Payer Group Member ID Coverage Type Subscriber Relationship to Subscriber Effective Date Expiration Date Medicare [id number] Sweet , M Id: [id number] [address] [place] [address] Home Phone: Email: [email or web address] Hospitaledicare Nonpatient [id number] Sweet , M Id: [id number] [address] [place] [address] Home Phone: Email: [email or web address] Sweet , M Id: [id number] [address] [place] [address] Home Phone: Email: [email or web address] Hospitaledicare PFFS [facility] [id number] [place] [address] Work Phone: Id: PLAN [id number] Sweet , Beverley Id: [id number] [address] CastrejonFormerly [facility] [address] Home Phone: Email: [email or web address] Encounter Location(s) Arrival/Admit Date Discharge/Departure Date Discharge/Departure Disposition Provider(s) Non-patient / Non-visit -[facility] ov2024 6:38am Rekha Diamond Physician/Provider Office Visit-[facility] 2024 10:18amNovember 2024 11:19amDischarged to home care or self care (routine discharge)Jordan Castillo , DO Recent Diagnosis Onset Date Admit Date Abdominal pain Unknown May 20, 025 10:18am GERD (gastroesophageal reflux disease) Unknown May 20, 2025 10:18am Hypercholesterolemia Unknown May 202024 10:18am Hypertension Unknown May 20 10:18am IFG (impaired fasting glucose) Unknown N ov2024 10:18am Lumbar spondylosis Unknown May 10:18am Assessments Diagnosis Onset Date Resolution Status Admit Date Abdominal pain acuteMay 20, 2025 10:18amGERD (gastroesophageal reflux disease)acute May 20, 2025 10:18amHypercholesterolemiaacuteNoveer 2024 10:18am HypertensionacuteMay 20, 2025 10:18amIFG (impaired fasting glucose)acute May 20, 2025 10:18amLumbar spondylosisacuteMay 20, 2025 10:18am Plan of Treatment Author Jordan Jonathan [facility] 2024 7:29amI have instructed this patient to consume a healthy, low-fat, low-salt diet. I have also encouraged them to continue exercise with weight loss to achieve/maintain a BMI < 30. I have instructed this patient on the correct procedure for obtaining home BP measurements:? - rest for 5 minutes w/o talking. - positioned w/ feet on floor and arms supported. - average best 2/3 readings w/ goal < 135/85. - update office w/ home readings in 2 weeks. Continue Amlodipine and Olmesartan without interruption I have instructed this patient on a low fat, high fiber diet and exercise. I have discussed the primary and secondary prevention benefits attributed to lowering LDL cholesterol. I have also discussed the medical treatment of elevated cholesterol, which is based on the 10 year ASCVD risk. I have instructed this patient to avoid lying flat after eating.?? I have also recommended to avoid eating 2 hours prior to bedtime.?? They were also informed that smaller, frequent meals may be better tolerated. I have discussed additional treatment options for persistent symptoms, which includes: weight loss, H2 blockers and PPI. I have also instructed them to notify the office with any pain or difficulty swallowing. I have instructed this patient to avoid bending, twisting or lifting. I have also instructed on use of intermittent heat and ice as needed. They may schedule a massage or gentle manipulation. I instructed them on the safe use of Tylenol, Lidocaine and stretching exercises. I informed them of alternative modes of treatment for severe pain, which may include referral to physical therapy or pain management. s/p lumbar fusion - 12/2023 Hx of abnormal uterus on CT scan She has developed lower abdominal tightness and pain. She is bothered when rolling over in bed and while sitting Feels fullness in lower abdomen Pelvic US: right ovary not visualized, remainder normal - 02/2025 His A1C is between 5.7-6.5%. Instructed on low carb, high fiber diet. Instructed on routine exercise program for 30-60min three times weekly. Instructed on correlation between obesity and insulin resistance and encouraged to lose weight. Monitor A1C every 6 months. Future Tests Future scheduled test information is unavailable Pending Tests Pending diagnostic test information is unavailable Future Visits Future appointment information is unavailable Future Procedures Future procedure information is unavailable Future Medications Future medication information is unavailable Patient Instructions Patient instructions are unavailable
--- OUTSIDE RECORDS SUMMARY | 2025-05-30 08:03 | XMS_ITS | Clinical Summary ---
Author Organization [facility] Address [facility] [place] [address] Care Team Providers Care Cardiothoracic Physiotherapist Name Role Phone Unavailable Primary Care Provider Unavailabl e Allergies No known active allergies Medications MedicationSigDispense QuantityRefillsLast FilledStart DateEnd DateStatus MULTI-VITAMIN ORAL Take by mouth once daily.Active amLODIPine (NORVASC) 5 mg tablet TAKE 1 TABLET BY MOUTH ONCE JNROIZWV87/24/2024ctive olmesartan (BENICAR) 20 mg tablet TAKE 1 TABLET BY MOUTH 1 DAILY05/19/2023ctive baclofen 10 mg tablet TAKE 1/2 TAB BY MOUTH EVERY MORNING,1/2 TAB EVERY AFTERNOON,THEN 1 TO 2 TABS EVERY DAY AT NDYFKYG2407/12/2023ctive gabapentin (NEURONTIN) 300 mg capsule Take 1 capsule by mouth two times a day for 90 days. 60 capsule ctive Active Problems ProblemNoted DateDiagnosed DateObesity, Class I, BMI 30-34.9012/16/2023Spinal stenosis, lumbar region with neurogenic bokujbvshztm80/07/2024S/P lumbar spinal clgczo9812/15/2023 Overview (12/15/2023): L3/4 LLIF Primary wxxcntghzcat50/08/2024 Assessment & Plan (11/15/2023 12:41 PM EDT): Assessment: Stable on medication Today To take medication morning of surgery Social History Tobacco UseTypesPacks/DayYears UsedDateSmoking Tobacco: FormerCigarettes0.515 08/22/1964 - 08/22/1979 Tobacco Cessation:Counseling Given: Not Answered Alcohol UseStandard Drinks/WeekCommentsYes0 (1 standard drink = 0.6 oz pure alcohol)special occasionsPHQ-2AnswerDate RecordedPHQ-2 hkcoy6434 CommentsNoSex and Gender InformationValueDate RecordedSex Assigned at Dppoqf5608/29/2022 10:35 AM ESTLegal SbqEqfeyi63/02/2012 8:56 AM ESTGender EzmslqvfWhlmgl24/20/2023 10:35 AM ESTSexual GmjehvfvqbaHsufrdgu15/20/2023 10:35 AM EST Last Filed Vital Signs Vital SignReadingTime TakenCommentsBlood Dnbfftcq528/64012/28/2023 12:42 PM EDT Ikhjp196612/28/2023 12:42 PM PQBWqnkhocrkzy59.9 ??C (98.4 ??F)12/16/2023 11:48 AM EDTRespiratory Yhsl034212/16/2023 7:44 AM EDTOxygen Fjeqlgrxcb36%12/28/2023 12:42 PM EDTInhaled Oxygen Concentration--Wqapof68.3 kg (192 lb 6.4 oz)12/28/2023 12:42 PM VWNRfxmry230.6 cm (5' 4 )12/28/2023 12:42 PM EDTBody Mass Index33.03 12/28/2023 12:42 PM EDT Plan of Treatment Health MaintenanceDue DateLast DoneCommentsAnnual PCP Team Chronic Disease Visit 1968Anxiety Glwddfhwu34/31/1968Depression Xauuckbsn67/31/1968Hepatitis C Cjatdqsjb50/31/1968Mammogram Fqastotti40/31/1990CT Bubinidnbren88/31/1995 Htnaraqmclh87/31/1995Fecal Occult Blood1995Lipid Sgjohhmrs65/31/1995 Nqphbzrahxpap67/31/1995DTaP,Tdap,Td Vaccine (1 - Tdap) Medicare Annual Wellness Visit06/09/2015Bone Density Gfepskwbt31/31/2015 Pneumococcal Vaccine: 50+ (3 of 3 - PCV20 or PCV21), 04/10/2015, 10/11/2013dvance Directive Ublixttpvh22/01/2025Covid-19 Vaccine ( season), 11/04/2022, 04/25/2022, Additional history existsInfluenza Vaccine (#1)/, 04/25/2022, 05/08/2021, Additional history existsRSV Vaccine (1 - 1-dose 75+ series) 5Cologuard (FIT-DNA), 08/28/2019Colorectal Cancer Jbtifrqtv04/07/2026Diabetes Xfixffaad21, 11/15/2023Shingrix RztgnutBhqmupjdb27/09/2024, 06/06/2023 Medical Devices ImplantedTypeAreaManufacturerDevice IdentifierShelf Expiration DateModel / Serial / LotGraft Infuse 14mm Small Bovine Collagen Rhbmp-2 23mm Bone Absorbable Sponge - [id number] Implanted:Qty: 1 on 12/15/2023 [facility] N/A: BackMEDTRONIC SOFOR [id number] / / [id number] Mastergraft Calcium Phosphate Collagen Bone Graft Void Filler - [id number] Implanted:Qty: 1 on 12/15/2023 by [facility] / PuttyN/A: BackMEDTRONIC SOFAMOR DANEK09/[id number] / / [id number] Spacer 8-15mm 20mm X 55mm 6deg Implanted:Qty: 1 [facility] BackGLOBUS [id number] / / Self Drilling Screw Variable Angle 5.5mm 40mm Implanted:Qty[facility] BackGLOBUS [id number] / / Procedures Procedure NamePriorityDate/TimeAssociated DiagnosisCommentsBASIC METABOLIC PANEL Bghydor2712/16/2023 5:04 AM EDT from Last 3 Months or Most Recently Relevant to Health Maintenance Results * (ABNORMAL) BASIC METABOLIC PANEL (12/16/2023 5:04 AM EDT)ComponentValueRef RangeTest MethodAnalysis TimePerformed AtPathologist RwgrrumhrTejtbwl825(H)74 - 99 mg/dL12/16/2023 7:55 AM EDTLUTHERAN LABORATORYComment: The [place] Diabetes Association (ADA) provides guidance for cutoff [...] Standards of Medical Care in Diabetes 2016, [place] Diabetes Association. Diabetes Care. 2016.39(Suppl 1). SFL269 - 21 mg/dL12/16/2023 7:55 AM EDTLUTHERAN LABORATORYCreatinine0.98(H)0.58 - 0.96 mg/dL12/16/2023 7:55 AM EDTLUTHERAN WXYOJQQXHZGyfdzj556081 - 144 mmol/L 12/16/2023 7:55 AM EDTLUTHERAN LABORATORYPotassium4.33.7 - 5.1 mmol/L12/16/2023 7:55 AM EDTLUTHERAN NXUKXNECQLFayrzoux95072 - 107 mmol/L12/16/2023 7:55 AM EDT YAZIDI JGQZGDJQYESW09328 - 30 mmol/L12/16/2023 7:55 AM EDTLUTHERAN LABORATORY Anion Wou752 - 15 mmol/L12/16/2023 7:55 AM EDTLUTHERAN LABORATORYCalcium, [...] TimeReceived TimeBloodBLOOD SPECIMEN / Unknown Venipuncture / Ikcevxz7912/16/2023 5:04 AM EDT12/16/2023 6:33 AM EDT Narrative Authorizing ProviderResult TypeResult StatusKatjen Gordon APRN.CNP LABORATORYFinal ResultPerforming OrganizationAddressCity/State/ZIP CodePhone Number [facility] [address] [place] [address], from Last 3 Months or Most Recently Relevant to Health Maintenance Insurance Advance Directives TypeDate RecordedPatient RepresentativeExplanationAdvance Directive(s)12/15/2023 7:18 AM
--- OUTSIDE RECORDS SUMMARY | 2025-05-30 08:03 | XMS_ITS | Encounter Summary ---
Author Organization [facility] Address [address] [place] [address] Care Team Providers Care Roller Embosser Name Role Phone Jonathan Jordan Consuelo ROBERTS Primary Care Provider [phone] Encounter Details DateTypeDepartmentCare Team (Latest Contact Info)Afcighcmgsm44/10/2025amboo flowsheet [facility] [address] [address] Brody Castro, ZACHARY [address] [place], [place] [phone] Social History Tobacco UseTypesPacks/DayYears UsedDateSmoking Tobacco: NeverSmokeless Tobacco: NeverAlcohol UseStandard Drinks/WeekCommentsYes2 (1 standard drink = 0.6 oz pure alcohol)CommentsUnknownSex and Gender InformationValueDate RecordedSex Assigned at BirthNot on fileLegal GraNxipto27/15/2023 7:21 PM EDTGender Identity Not on fileSexual OrientationNot on filedocumented as of this encounter Plan of Treatment DateTypeDepartmentCare Team (Latest Contact Info)Pnemworttko81/08/2025 2:15 PM ESTOffice Visit [facility] [address] [address] Brody Castro, ZACHARY [address] [place], [place] [phone] documented as of this encounter Visit Diagnoses Not on filedocumented in this encounter Care Teams Team MemberRelationshipSpecialtyStart DateEnd Date Jordan Castillo DO [address] [place] [phone] PCP - GeneralInternal Medicine04/07/25documented as of this encounter
--- OUTSIDE RECORDS SUMMARY | 2025-05-30 08:03 | XMS_ITS | Clinical Summary ---
Author Organization [facility] Address [address] [place] [address] Care Team Providers Care Manager Hardware Name Role Phone Jordan Castillo DO Primary Care Provider [phone] Allergies No known active allergies Medications MedicationSigDispense QuantityRefillsLast FilledStart DateEnd DateStatus olmesartan (BENIcar) 20 MG tablet Take 20 mg by mouth Daily04/20/2023ctive Multiple Vitamins-Minerals (Multi For Her 50+) tablet Active amLODIPine (Norvasc) 5 MG tablet 09/02/2023ctive acetaminophen (Tylenol 8 Hour) 650 MG ER tablet Take 650 mg by mouth every 8 (eight) hours if needed for mild pain Do not crush, chew, or split.Active ibuprofen 200 MG tablet Discontinued(Therapy completed) Active Problems ProblemNoted DateDiagnosed DateDDD (degenerative disc disease), emcwma3305/13/2024 GERD (gastroesophageal reflux disease)05/13/20245851Gefmevyfi61/04/2024Metabolic dysfunction-associated steatotic liver disease (MASLD)05/13/2024 Gevxcpzzuyztldeoipta66/04/2024IFG (impaired fasting glucose)05/13/2024S/P lumbar spinal qmyzjn8312/15/2023 Overview (05/13/2024): L3/4 LLIF Primary oxnulyejivjl17/08/2024etinal byduxvhc32/30/2023VD (posterior vitreous detachment), right eye05/08/2023 Encounters DateTypeDepartmentCare KwynHjepvpwtpvu45/10/2025 9:30 AM ESTOffice Visit [facility] [address] [place] [place] [address] Brody Castro, ZACHARY Pre-op exam (Primary Dx)05/19/2025[facility] flowsheet [facility] [address] [place] [place] [address] Brody Castro, ELECTRIC ORGAN CHECKER 05/19/20256970Puwqrl10/03/0415Jwxosn60/08/2025 10:45 AM EDTOffice Visit [facility] [address] [place] [address] Jr. Walter Olguin DO Trigger finger of left thumb (Primary Dx); Pain of left thumb04/16/2025amb flowsheet [facility] [address] [place] [address] Jr. Walter Olguin DO 04/16/20256623Uddmfd43/01/7233Ucuhkm15/29/2025 10:45 AM EDTOffice Visit [facility] [address] [place] [address] Ganga Mitchell PA Thumb pain, left (Primary Dx); Trigger finger of left thumb04/07/2025amb flowsheet [facility] [address] [place] [address] Ganga Mitchell PA 04/07/20258726Sxlnid43/23/2025Travelfrom Last 3 Months Immunizations ImmunizationAdministration DatesNext DueInfluenza, High Dose Seasonal, Preservative Free04/01/2024Influenza, Seasonal, Quadrivalent, Adjuvanted 04/04/2023,04/25/2022,05/08/2021Influenza, injectable, quadrivalent, preservative free04/11/2022,04/14/2021,03/03/2020Influenza, live, intranasal, atsuvxwfiolm59/12/2018Influenza, seasonal, injectable, preservative free 04/10/2015Influenza, trivalent, /08/2018Pneumococcal Conjugate PCV 13108/23/2014Pneumococcal Polysaccharide IDLJ1526,10/11/2013Td (adult), 5 Lf tetanus toxoid, preservative free, sxbncxyf43/07/2014Zoster, Recombinant 09/16/2023,06/06/2023 Social History Tobacco UseTypesPacks/DayYears UsedDateSmoking Tobacco: NeverSmokeless Tobacco: Never Tobacco Cessation:Counseling Given: Not Answered Alcohol UseStandard Drinks/WeekCommentsYes2 (1 standard drink = 0.6 oz pure alcohol)CommentsUnknownSex and Gender InformationValueDate RecordedSex Assigned at BirthNot on fileLegal TxiLkamzt66/15/2023 7:21 PM EDTGender Identity Not on fileSexual OrientationNot on file Last Filed Vital Signs Vital SignReadingTime TakenCommentsBlood Ptyznvoa442/80008/19/2019 12:00 PM EST Pulse--Temperature--Respiratory Rate--Oxygen Saturation--Inhaled Oxygen Concentration--Bqcguy78.2 kg (190 lb)05/19/2025 9:19 AM REQZsljwq063.6 cm (5' 4 )05/19/2025 9:19 AM ESTBody Mass Index32.6105/19/2025 9:19 AM EST Plan of Treatment DateTypeDepartmentCare Team (Latest Contact Info)Kxfgwciwkrf33/08/2025 2:15 PM ESTOffice Visit [facility] [address] [place] [address] Brody Castro, ZACHARY [address] [place] [address] Health MaintenanceDue DateLast DoneCommentsCT Curkzpovfjvg1950Colonoscopy 1950FIT1950FOBT1950Sclrjumgmxoei11/31/0541Rliwmkxmw83/31/1990 Pneumococcal Vaccine: 65+ Years (3 of 3 - PCV20 or PCV21), 04/10/2015, 10/11/2013COVID-19 Vaccine ( season), 04/01/2024, 04/04/2023, Additional history existsColorectal Cancer Screening 02/13/2026FIT-DNA608/01/2023, 08/28/2019Influenza VaccineCompleted 04/14/2025, 04/01/2024, 03/10/2024, Additional history exists Insurance Care Teams Team MemberRelationshipSpecialtyStart DateEnd Date Jordan Castillo DO [address] [facility] [place] [phone] PCP - GeneralInternal Medicine04/07/25
--- OUTSIDE RECORDS SUMMARY | 2025-05-30 08:03 | XMS_ITS | Encounter Summary ---
Author Organization [facility] Address [address] [place] [address] Care Team Providers Care Supervisor Scenic Arts Name Role Phone Jordan Castillo DO Primary Care Provider [phone] Encounter Details DateTypeDepartmentCare Team (Latest Contact Info)Xtkrhbjftow58/10/2025Travel Social History Tobacco UseTypesPacks/DayYears UsedDateSmoking Tobacco: NeverSmokeless Tobacco: NeverAlcohol UseStandard Drinks/WeekCommentsYes2 (1 standard drink = 0.6 oz pure alcohol)CommentsUnknownSex and Gender InformationValueDate RecordedSex Assigned at BirthNot on fileLegal DvhFhvnlp23/15/2023 7:21 PM EDTGender Identity Not on fileSexual OrientationNot on filedocumented as of this encounter Plan of Treatment DateTypeDepartmentCare Team (Latest Contact Info)Fkweckfabrg57/08/2025 2:15 PM ESTOffice Visit [facility] [address] [place] [address] Brody Castro NP [address] [place], [place] [phone] documented as of this encounter Visit Diagnoses Not on filedocumented in this encounter Care Teams Team MemberRelationshipSpecialtyStart DateEnd Date Jordan Castillo DO [address] [facility] [place] [address] PCP - GeneralInternal Medicine04/07/25documented as of this encounter
--- OUTSIDE RECORDS SUMMARY | 2025-05-30 08:05 | XMS_ITS | CCD ---
Author Organization [facility] Care Team Providers Care Automation Controls Engineer Name Role Phone Unavailable Primary Care Provider [...] Attending Demi vailable LAKSHMIPATHY ., NARENDRANATH Admitting Edmi vailable ADORE, DR FLEMING Primary Care Unavailable [...] Unavailable BALL, DR FLEMING Primary Care Unavailable JEDEBGLADYS, DR BONNY Jain Consulting Unavailable APLING, EULA Chris Admitting Unavailable APLING, EULA Perez Attending Unavailable [...] Provider Jordan Avitia DO Primary Care Provider [phone] Jordan Avitia DO Attending Provider [phone] Jordan Avitia DO Primary Care Provider Jordan Avitia DO Primary Care Provider Jordan Avitia DO Primary Care Provider NICOLE MITCHELL Attending Unavailable JR. OLGUIN GEORGE C Attending UnavailINNA Parmar Attending Unavailable APLING, EULA Perez Attending Unavailable APLING, EULA Perez Attending Unavailable Jordan Avitia DO Primary Care Provider [phone] Jordan Avitia DO Attending Provider [phone] Allergies Allergy ClassificationReported Allergen(s)Allergy TypeDate of OnsetReaction(s) Facility (5 sources)patient allergy list reviewed by nurse or physiciaPropensity to adverse -[phone]:DoneNort [employer] Other (5 sources)Allergies ReconciledPropensity to adverse reactionsUnknoJefferson Memorial Hospital [employer] Other Medications Current Medications MedicationDrug Class(es)DatesSig (Normalized)Sig (Original)acetaminophen 500 mg oral tablet (3 sources)Start: 07-20-2432ummo 1 tablet by mouth every six hours as needed Acetaminophen (Tylenol Extra Strength) 500 mg tablet Active 500 MG PO Every 6 hours as needed May 20, 2025 12:00am Complies with drug therapytake 1 tablet by mouth every eight hours as needed for painacetaminophen (Tylenol 8 Hour) 650 MG ER tablet Take 650 mg by mouth every 8 (eight) hours if needed for mild pain Do not crush, chew, or split. Activeacetaminophen 325 mg / HYDROcodone bitartrate 5 mg oral tablet (1 source)Opioid AgonistStart: 05-14-2024 End: 19-18-7547oafi 1 tablet by mouth every six hours for painHYDROcodone- acetaminophen (Higbee) 5-325 MG tablet Indications: Trigger finger of right thumb Take 1tablet by mouth every 6 (six) hours if needed for severe pain for up to 3 days 12 tablet Activeacetaminophen 325 mg / oxyCODONE hydrochloride 5 mg oral tablet (1 source)Opioid AgonistStart: 12-16-2023 End: 43-87-6689tdnf 1 tablet by mouth every six hours as needed for pain oxyCODONE-acetaminophen (PERCOCET) 5-325 mg tablet Indications: S/P lumbar spinal fusion Take 1 tablet by mouth every 6 hours as needed for pain for up to 7 days. 28 tablet 0 12/16/2023 12/23/2023 ActiveamLODIPine 5 mg oral tablet (20 sources)Dihydropyridine Calcium Channel BlockerStart: 36-87-7522rkdy 1 tablet by mouth once dailyAmlodipine 5 mg tablet Active 0 .ROUTE .COMPLEX 90 February 16, 2025 7:09am TAKE 1 TABLET BY MOUTH EVERY DAY FOR 90 DAYS Complies with drug therapyStart: 09-02-2023 End: 60-08-6281rqot 1 tablet by mouth once dailyAmlodipine 5 mg tablet Discontinued 5 MG PO Daily 90 90 3 February 08, 2024 10:25am February 16, 2025 7:09amStart: 43-40-7062qkhn 1 tablet by mouth every twenty-four hoursamLODIPine Besylate 5 MG 1 tablet Orally Once a day for 30 days Jan, Active amLODIPine Besylate TAKE 1 TABLET BY MOUTH EVERY DAY FOR 30 DAYS Orally Once a day ActiveamLODIPine Besylate TAKE 1 TABLET BY MOUTH EVERY DAY FOR 30 DAYS Orally Once a day for 90 days ActiveComment on above:TAKE 1 TABLET BY MOUTH ONCE EVERYDAYbaclofen 10 mg oral tablet (20 sources)gamma-Aminobutyric Acid-ergic AgonistStart: 04-28-2023 End: 76-39-3722arpm 0.5 tablet by mouth once daily in [...] day ActiveCalcium Carbonate- Vitamin D2 (3 sources)Start: 98-98-3214lewg 1 tablet by mouth once dailyCalcium Carbonate- Vitamin D2 Active TAB PO Daily February 08, 2024 12:00amCalcium Carbonate-Vitamin D2 500 mg(1,250mg) -200 unit tablet (2 sources)Start: 44-00-5437sgyr 1 tablet by mouth once dailyCalcium Carbonate- Vitamin D2 500 mg(1,250mg) -200 unit tablet Active TAB PO Daily February 07, 2024 11:00pm Complies with drug therapyStart: 64-94-9999hnpu 1 tablet by mouth once dailyCalcium Carbonate-Vitamin D2 500 mg(1,250mg) -200 unit tablet Active TAB PO Daily February 08, 2024 12:00am Complies with drug therapygabapentin 300 mg oral capsule (20 sources)Anti-epileptic AgentStart: 09-04-2023 End: 21-33-1561ujme 1 capsule by mouth twice dailygabapentin (NEURONTIN) 300 mg capsule Take 1 capsule by mouth two times a day for 90 days. 60 capsule 2 12/05/2023 03/04/2024 ActiveStart: 09-05-2022 End: 76-93-5302vpen 1 capsule by mouth twice dailygabapentin (NEURONTIN) 300 mg capsule Take 1 capsule by mouth twice daily for 90 days. 60 capsule 12/04/2022 ActiveComment on above:Take 1 capsule by mouth twice daily for 90 days.Take 1 capsule by mouth two times a day for 90 days.ibuprofen 200 mg oral tablet (20 sources)Nonsteroidal Anti-inflammatory DrugStart: 02-08-2024 End: 83-99-8270pznuoqjvc 200 MG tablet 02/08/2024 05/19/2025 Discontinued (Therapy completed)Start: 95-79-0151nlxdtvmna 200 MG tablet Once 02/08/2024 ActiveStart: 02-08-2024 End: 71-83-1787vyfa 2 tablets by mouth once as neededIbuprofen 200 mg tablet Discontinued 400 MG PO Once as needed February 07, 2024 11:00pm May 20, 2025 10:32amStart: 37-51-2733aezc 400 mg by mouth onceIbuprofen Active 400 MG PO Once February 08, 2024 12:00amStart: 02-08-8729svpv 2 tablets by mouth once daily at mealtime as neededIbuprofen 200 MG 2 tablets with food or milk as needed Orally once a day Sep, ActiveStart: 61-52-3948Vhwtxavlb 200MG Ibuprofen( 200MG Oral as needed ) [...] daily.Multiple Vitamins-Minerals (Multi For Her 50+) tablet (20 sources)Multiple Vitamins-Minerals (Multi For Her 50+) tablet ActiveMultiple Vitamins-Minerals (Multi For Her 50+) tablet as directed Orally Active lftdlnfa-iizp-FK-calcium &mins (THERAGRAN-M) 9 mg iron-400 mcg tablet (1 source)hottbccl-zugp-DE-calcium &mins (THERAGRAN-M) 9 mg iron-400 mcg tablet Take 1 tablet by mouth inthe morning. CxlazzFrxqbmlgewix-Yh-Uewq-Minerals (3 sources)Start: 31-65-0052Mdissbhrtpvp-Dt-Nucm-Mkxsoahy Active TAB PO February 08, 2024 12:55prTdjwrdkfuluj-Yg-Ddpy-Minerals tablet (2 sources)Start: 50-06-7515Czfwhlpwxyrv-Id-Vfdi-Gciejxle tablet Active TAB PO February 07, 2024 11:00pm Complies with drug therapyStart: 02-08-2024 Bqyphqtlbwyj-Fq-Gfqc-Minerals tablet Active TAB PO February 08, 2024 12:00am Complies with drug therapymupirocin 0.02 mg/mg topical ointment (4 sources)RNA Synthetase Inhibitor AntibacterialStart: 12-10-2023 End: 07-85-7863eaklhwkag (BACTROBAN) 2 % ointment Apply 1/2 ointment with a cotton swab in each nostril 2x daily for five days preop Patient should start on December 10, 2023. 22 g 0 12/10/2023 12/14/2023 ActiveStart: 12-10-2023 End: 55-26-7892vnclipwmq (BACTROBAN) 2 % ointment Apply 1/2 ointment with a cotton swab in each nostril 2x daily for five days preop Patient should start on December 10, 2023. 22 g 0 12/10/2023 11/15/2023 Discontinued (Discontinued by Patient)Start: 12-10-2023 End: 48-07-1636blfwxykrw (BACTROBAN) 2 % ointment Apply 1/2 ointment with a cotton swab in each nostril 2x daily for five days preop Patient should start on December 10, 2023. 22 g 0 12/10/2023 12/14/2023 ActiveComment on above:Apply 1/2 ointment with a cotton swab in each nostril 2x daily for five days preop Patient should start on December 10, 2023.paxlovid (300/100) 20 x 150 mg & 10 x 100mg tablet therapy pack (2 sources)Start: 71-48-9671Exlanpvj (300/100) 20 x 150 MG & 10 x 100MG as directed Orally bid for 5 days Jun, Active Completed/Discontinued Medications MedicationDrug Class(es)DatesSig (Normalized)Sig (Original)cholecalciferol 0.125 mg oral capsule (5 sources)Vitamin DStart: 08-28-2022 End: 83-77-3326muos 1 capsule by mouth three times weeklyCholecalciferol, Vitamin D3, 125 mcg (5,000 unit) cap Take 5,000 Units by mouth three times a week.0 08/28/2022 11/15/2023 DiscontinuedComment on above:Take 5,000 Units by mouth three times a week.DAILY-SAÚL, WITH FOLIC ACID, 400 mcg (5 sources)Start: 07-19-2022 End: 57-10-5371lvgg 1 tablet by mouth once dailyDAILY-SAÚL, WITH FOLIC ACID, 400 mcg Take 1 tablet by mouth once daily. 0 07/19/2022 11/15/2023 Discontinued Start: 75-05-1631bala 1 tablet by mouth once dailyDAILY-SAÚL, WITH FOLIC ACID, 400 mcg Take 1 tablet by mouth once daily. 0 07/19/2022 ActiveComment on above: Take 1 tablet by mouth once daily.nitrofurantoin, macrocrystals 25 mg / nitrofurantoin, monohydrate 75 mg oral capsule (5 sources)Nitrofuran AntibacterialStart: 17-55-2710mcko 1 capsule by mouth every twelve hoursMacrobid 100 MG 1 capsule with food Orally every 12 hrs for 7 day(s) Aug, Not-Takingolmesartan medoxomil 20 mg oral tablet (20 sources)Angiotensin 2 Receptor BlockerStart: 03-21-2023 End: 03-20-1921gmom 1 tablet by mouth once dailyOlmesartan 20 mg tablet Discontinued 20 MG PO Daily February 08, 2024 10:13am May 27, 2024 1:00pm Comment on above:TAKE 1 TABLET BY MOUTH 1 DAILYrosuvastatin calcium 5 mg oral tablet (6 sources)HMG-CoA Reductase InhibitorStart: 09-04-2023 End: 35-83-4721dgvcvzqvyotp (CRESTOR) 5 mg tabletStart: 78-76-8176rhho 1 tablet by mouth every twenty-four hoursRosuvastatin Calcium 5 MG 1 tablet Orally Once a day for 30 days May, ActiveVITAMINS B COMPLEX capsule (5 sources)Start: 07-19-2022 End: 27-47-8697adte 1 capsule by mouth once dailyVITAMINS B COMPLEX capsule Take 1 capsule by mouth once daily. 0 07/19/2022 11/15/2023 DiscontinuedStart: 91-50-3540jrmu 1 capsule by mouth once dailyVITAMINS B COMPLEX capsule Take 1 capsule by mouth once daily. 0 07/19/2022 ActiveComment on above:Take 1 capsule by mouth once daily.zonisamide 100 mg oral capsule (1 source)Anti-epileptic AgentStart: 07-27-2023 End: 26-66-0796mnat 2 capsules by mouth once daily at bedtimezonisamide (ZONEGRAN) 100 mg capsule take 2 capsules by mouth every day at bedtime 0 07/27/2023 11/15/2023 Discontinued Problems Active Problems Problem ClassificationProblemDateDocumented DateEpisodic/ChronicAbdominal pain (4 sources)Abdominal pain; Translations: [Unspecified abdominal pain]02-11-2025 EpisodicAcquired foot deformities (10 sources)Disorder of ankle; Translations: [Valgus deformity, not elsewhere classified, right ankle]EpisodicDiabetes mellitus without complication (20 sources)Impaired fasting glycemia; Translations: [Impaired fasting glucose] Onset: 141800-03-5163UmelirjaIlfqatrws of lipid metabolism (20 sources)Pure hypercholesterolemia; Translations: [Familial hypercholesterolemia]Onset: 61-65-0709FwwfkefD Codes: Adverse effects of medical drugs (1 source)Adverse effect of other antihypertensive drugs, initial encounter EpisodicEsophageal disorders (20 sources)Gastro-esophageal reflux disease with esophagitis; Translations: [Gastroesophageal reflux disease with esophagitis without hemorrhage]Onset: 359732-35-2100KyroorwJjszoznrk hypertension (20 sources)Essential hypertension; Translations: [Essential (primary) hypertension]Onset: 62-62-6907WsdkwqgOfadcnof sclerosis (12 sources)Multiple sclerosis; Translations: [Multiple sclerosis]02-07-2024 [...] sources)Arthrodesis status; Translations: [S/P lumbar spinal fusion]Onset: 52-76-5908DvkazyysIufpq connective tissue disease (3 sources)Triggering of digit; Translations: [Trigger finger, unspecified finger]93-47-5973HnihzfnfQskdk connective tissue disease (1 source)Trigger finger, unspecified finger; Translations: [Trigger finger (acquired)]54-80-4925WijsjagiBaobj connective tissue disease (4 sources)Pain in right thumb; Translations: [Pain in right finger(s)] 10-91-5085DzsxmzkwIlrvq connective tissue disease (5 sources)Trigger thumb of right hand; Translations: [Trigger thumb, right thumb]80-35-0579UcceclwvQallt connective tissue disease (4 sources)Pain in left thumb; Translations: [Pain in left finger(s)]04-06-2025 EpisodicOther connective tissue disease (4 sources)Trigger thumb of left hand; Translations: [Trigger thumb, left thumb] 56-25-8130JpzwghrbKnype eye disorders (20 sources)Posterior vitreous detachment of right eye; Translations: [Vitreous degeneration, right eye]Onset: 628775-25-3900WqxgghtMbpud female genital disorders (10 sources)Other specified conditions associated with female genital organs and menstrual cycle; Translations:[Oth cond assoc w female genital organs and menstrual cycle]EpisodicOther gastrointestinal disorders (1 source)Drug induced constipationEpisodicOther gastrointestinal disorders (3 sources)Oropharyngeal dysphagia; Translations: [Dysphagia, oropharyngeal phase]EpisodicOther gastrointestinal disorders (1 source)Dysphagia, oropharyngeal phaseEpisodicOther liver diseases (11 sources)Steatosis of liver; Translations: [Fatty (change of) liver, not elsewhere classified]Onset: 733121-70-8089AmigvioXlbln liver diseases (20 sources)Inflammatory disease of liver; Translations: [Inflammatory liver disease, unspecified]Onset: 089393-91-9410KahwfwbUjejh liver diseases (11 sources)Fatty (change of) liver, not elsewhere classified; Translations: [Metabolic dysfunction-associated steatotic liver disease (MASLD)]Onset: 733568-93-4919IaopptgOfhwc liver diseases (4 sources)Enzyme level - finding; Translations: [Transaminasemia]02-08-2024 EpisodicOther nervous system disorders (5 sources)Other chronic pain; Translations: [OTHER CHRONIC PAIN]Onset: 02-36-0601RbncynkTusuh nervous system disorders (2 sources)Carpal tunnel syndrome of right wrist; Translations: [Carpal tunnel syndrome, right upper limb]76-33-3611CxlbyyaQnkuv non-traumatic joint disorders (1 source)Pain in right [...] sources)Obese class I; Translations: [Obesity, unspecified]Onset: 12-16-2023 91-58-6103UsotcihWbhfa screening for suspected conditions (not mental disorders or infectious disease) (10 sources)Encounter for screening mammogram for malignant neoplasm of breast; Translations: [Other screening mammogram]Onset: 27-60-5408RyveglwkXxcebwwa codes; unclassified (1 source)Pain; Translations: [Pain, unspecified]27-35-3052EhvqytxgAzciwrrh codes; unclassified (1 source)Pain, unspecified; Translations: [Pain, unspecified]Onset: 11-15-2023 EpisodicRetinal detachments; defects; vascular occlusion; and retinopathy (20 sources)Hypertensive retinopathy; Translations: [Hypertensive retinopathy, bilateral]Onset: 78-00-0426IsleocoPoheaogvsol; intervertebral disc disorders; other back problems (20 sources)Spondylosis without myelopathy or radiculopathy, lumbosacral region; Translations: [Spondylosis without myelopathy or radiculopathy, lumbar region] Onset: 31-70-6026RrngmrlAsffwnytdszd (3 sources)LOW BACK PAIN, UNSPECIFIED; Translations: [LOW BACK PAIN, UNSPECIFIED]Onset: 11-07-2022 Past or Other Problems Problem ClassificationProblemDateDocumented DateEpisodic/ChronicBenign neoplasm of uterus (10 sources)Uterine leiomyoma; Translations: [Leiomyoma of uterus, unspecified] Resolved: 68-62-5759CoivhcruNxeyjttnoo disorders (5 sources)Esophageal disorders; Translations: [Gastroesophageal reflux disease with esophagitis without hemorrhage]Other connective tissue disease (20 sources)History of lumbar fusion; Translations: [Arthrodesis status]Onset: 751747-86-5134OlnkaqzmFpmqhhuw codes; unclassified (1 source)Family history of malignant neoplasm of breast; Translations: [FAMILY HX MALIG NEOPLASM OF BREAST]Onset: 10-04-7301BimbmtncGqfwqfnb codes; unclassified (1 source)Family history of malignant neoplasm of digestive organs; Translations: [FAM HX MALIG NEOPLASM DIGESTIV ORGN]Onset: 92-01-0652Rnsourjr Spondylosis; intervertebral disc disorders; other back problems (20 sources)Radiculopathy, lumbar region; Translations: [Spinal stenosis, site unspecified]Onset: 96-30-7415QeyxdwhfLlpcfewdtytx (1 source)LOW BACK PAIN, UNSPECIFIED; Translations: [LOW BACK PAIN, UNSPECIFIED] Onset: 11-03-2022 Results Test NameValueInterpretationReference RangeFacilityGlobulin Calc (S) [Mass/Vol] Ordered By: Jordan Avitia on 39-03-6827Jcdiokna (S) [Mass/Vol]3.8 g/dLLakehealth Tripoint Medical CenterLaboratory - Chemistry and Chemistry - challengeOrdered By: Jordan Avitia on 68-20-9010Sifhwhm [Mass/Vol]3.7 g/dL3.4-5.0[facility] CenterALP [Catalytic activity/Vol]105 U/O25-970PezwohloqLakehealth Tripoint Medical CenterALT [Catalytic activity/Vol]59 U/J53-59UetkhrwynLakehealth Tripoint Medical CenterAST [Catalytic activity/Vol]38 U/OKpug85-49PdfpwdbmiLakehealth Tripoint Medical CenterBilirubin [Mass/Vol]0.5 mg/dL0.2-1.0[facility] CenterBilirubin.direct [Mass/Vol]0.1 mg/dL0.0-0.2FOhioHealthProtein [Mass/Vol]7.5 g/dL6.4-8.2FMemorial Hospitalerum or plasma albumin/globulin mass ratioOrdered By: Jordan Avitia on 05-15-2025 Albumin/Globulin [Mass ratio]1.0 {ratio}[facility] Basophils Auto (Bld) [#/Vol]on 24-70-4043Njsoyqimg (Bld) [#/Vol]0.0 10 3/uL 0.0-0.1FOhioHealthBasophils/100 WBC Auto (Bld)on 98-41-6919Yaoknixwe/100 WBC (Bld)0.6 %0.2-2.0[facility] Diagnostic impression [Interpretation] in Specimen Narrativeon 04-11-2024 Diagnostic impression Molgen Buck (Unsp spec) [Interp]Comment.[facility] Medical CenterComment on above:Not infected with HCV unless early or acute infection issuspected (which may be delayed in an immunocompromisedindividual), or other evidence exists to indicate HCVinfection.Performed at: - [facility] [id number] Director: Kiet Godwin PhD, Phone: [phone]/100 WBC Auto (Bld)on 21-42-0723Jjbfhhvidwv/100 WBC (Bld)2.2 %0.9-7.0[facility] CenterErythrocyte distribution width Auto (RBC) [Ratio]on 64-07-5268Waqbewwkszz distribution width (RBC) [Ratio]12.9 %11.0-15.0[facility] CenterGlobulin Calc (S) [Mass/Vol]on 11-98-3945Fboasrnn (S) [Mass/Vol]3.5 g/dLLakehealth Tripoint Medical CenterHematocrit Auto (Bld) [Volume fraction]on 75-56-9213Mgxwxzlavv (Bld) [Volume fraction]38.3 %36.0-48.0[facility] CenterHemoglobin [Mass/volume] in Bloodon 26-26-6941Ukdwtjisib (Bld) [Mass/Vol]13.0 g/dL12.0-16.0 [facility] CenterHepatitis A virus Ab [Presence] in Serum by Immunoassayon 23-98-2529ELA Ab IA Ql (S)NegativeNegativeLakehealth Tripoint Medical CenterComment on above:Comment: The HAV total antibody assay detects both IgG andIgM but does not differentiate between them. A negativeresult suggests susceptibility to infection. A positiveresult could be due to vaccinati on, previously resolvedinfection or active infection. Testing for HAV IgM shouldbe performed if active HAV infection is suspected. Labcorpoffers profiles that will automatically reflex positive HAVtotal antibody results to IgM (e.g., panel #[id number] HAVAntibody w/ Rfx).Performed at: [facility] Lab[address] [id number] Director: Kiet Godwin PhD, Phone: [phone] Laboratory - Chemistry and Chemistry - challengeon 15-13-4244Ikppwpf [Mass/Vol] 3.5 g/dL3.4-5.0[facility] CenterALP [Catalytic activity/Vol]106 U/B20-777PoaheesinLakehealth Tripoint Medical CenterALT [Catalytic activity/Vol]49 U/L 14-59[facility] CenterAST [Catalytic activity/Vol]36 U/L15-37 [facility] CenterBilirubin [Mass/Vol]0.5 mg/dL0.2-1.0[facility] CenterBilirubin.direct [Mass/Vol]0.1 mg/dL0.0-0.2FOhioHealthFerritin [Mass/Vol]308.0 ng/mLHigh8.0-252.0[facility] CenterProtein [Mass/Vol]7.0 g/dL6.4-8.2FOhioHealthLaboratory - Hematology and Cell countson 19-84-8342Mxehxjcf granulocytes/100 WBC (Bld)0.4 %0.0-0.5FOhioHealth Leukocytes [#/volume] corrected for nucleated erythrocytes in Blood by Automated counon 15-42-0660YGW corrected for nucl RBC Auto (Bld) [#/Vol]4.9 10 3/uL 4.0-11.0[facility] CenterLymphocytes Auto (Bld) [#/Vol]on 12-99-2791Tghgykycdfh (Bld) [#/Vol]1.8 10 3/uL1.2-3.8[facility] CenterLymphocytes/100 WBC Auto (Bld)on 26-69-8334Irfunimopqs/100 WBC (Bld)36.9 % 20.5-60.0[facility] CenterH Auto (RBC) [Entitic mass]on 91-61-8184WZD (RBC) [Entitic mass]31.2 pg26.7-34.0[facility] CenterMCHC Auto (RBC) [Mass/Vol]on 05-07-3233OKPC (RBC) [Mass/Vol]33.9 g/dL 29.9-35.2FOhioHealthMCV Auto (RBC) [Entitic vol]on 29-03-6290KIP (RBC) [Entitic vol]91.8 fL81.0-99.0[facility] CenterMonocytes Auto (Bld) [#/Vol]on 23-63-7294Cnvlkjqhx (Bld) [#/Vol]0.4 10 3/uL0.3-0.8[facility] CenterMonocytes/100 WBC Auto (Bld)on 70-93-8534Hjwabkebb/100 WBC (Bld)9.0 %1.7-12.0[facility] Neutrophils Auto (Bld) [#/Vol]on 40-75-8616Bkpmspqottf (Bld) [#/Vol]2.5 10 3/uL 1.4-6.5FOhioHealthNeutrophils/100 WBC Auto (Bld)on 57-25-3998Yvgthpoexfc/100 WBC (Bld)50.9 %43.0-75.0[facility] CenterNo Panel Informationon 09-77-0863Vzljtcfkztd # (Auto)0.1 10 3/uL0.0-0.7 [facility] CenterHepatitis B Core Total AntibodyNegativeNegative [facility] CenterImmature Granulocyte # (Auto)0.02 10 3/uL 0.00-0.03[facility] Medical CenterPlatelet mean volume Auto (Bld) [Entitic vol]on 68-97-8880Kzftmtta mean volume (Bld) [Entitic vol]9.6 fL9.5-13.5 [facility] CenterPlatelets Auto (Bld) [#/Vol]on 04-11-2024 Platelets (Bld) [#/Vol]169 10 3/qD330-756IzqxlhbojLakehealth Tripoint Medical CenterRBC Auto (Bld) [#/Vol]on 10-43-2998APW (Bld) [#/Vol]4.17 10 6/uLLow4.20-5.40 [facility] Hospitalerum or plasma albumin/globulin mass ratioon 91-76-3643Xjpalrf/Globulin [Mass ratio]1.0 {ratio}[facility] Hospitalerum or plasma free cefuroxime measurement (mass/volume)on 04-11-2024 Cefuroxime free [Mass/Vol]NegativeNegativeLakehealth Tripoint Medical Center Comment on above:Performed at: [facility] Lab[address] [id number] Director: Kiet Godwin PhD, Phone: [phone] or plasma hepatitis C virus antibody signal/cutoff ratio by immunoassay (relation 59-21-8553MUX Ab Signal/Cutoff IA [Rel units/Vol]Non-ReactiveNon Reactive [facility] CenterCNPNon 45-72-1787CFKLIkhqcfnjs (NEADFV) CHRISTIAN NOYOLA ([id number]) 1950 F Date Time Provider Department 01/23/24 JORGE DESAI NEADFV During your visit today, we recorded the following information about you: Emily Ellis 01/23/2024 1:47 PM Signed [facility] Progress Note scanned to [employer] for review and signature Debbi Brizuela RN 01/23/2024 2:26 PM Signed Printed for review and signature. Debbi Brizuela RN 01/24/2024 2:04 PM Signed Signed form faxed to number requested. Faxed verification received. Allergies As of Date: 01/23/2024 (No Known Allergies) Date Reviewed: 12/28/2023 Reviewed by: Gregorio Ellis PCNA - Fully Assessed Reason for Visit: Front End Specialist - Other [[id number]] Prescriptions as of 01/24/2024 - gabapentin (NEURONTIN) [...] 12/16/2023 Encounter Status:Closed by DEBBI BRIZUELA on 01/24/24[facility]XR LUMBAR 2V AP/LATon 14-37-8883UE LUMBAR 2V AP/LAT* * *Final Report* * [...] Postoperative and degenerative changes, similar to prior. Machine Clothing Man: LARA Transcribe Date/Time: Jan 15 2024 12:39P Dictated by : MAYITO RAMIREZ MD This examination was interpreted and the report reviewed and electronically signed by: MAYITO RAMIREZ MD on Jan 15 2024 12:42PM EST [id number] Memorial HospitalXR Lumbar spine AP and Lateralon 02-85-3855NZHVKDHTDM: Postoperative and degenerative changes, similar to prior. Machine Clothing Man: PSCB Transcribe Date/Time: Jan 15 2024 12:39P [...] the left upper quadrant. DIVISION OF RADIOLOGYProvider, [facility] [place] - 01/15/2024 * * *Final Report* * [...] Postoperative and degenerative changes, similar to prior. Machine Clothing Man: LARA Transcribe Date/Time: Jan 15 2024 12:39P Dictated by : MAYITO RAMIREZ MD This examination was interpreted and the report reviewed and electronically signed by: MAYITO RAMIREZ MD on Jan 15 2024 12:42PM [facility] HospitalRadiology Study observation (narrative)[facility] Lumbar spine AP and LateralOrdered By: Ccf Provider on 37-15-4335Ujieydupc ClinicCNPN on 52-43-9606SSDAVtumdtsik (NEADFV) CHRISTIAN NOYOLA ([id number]) 1950 F Date Time Provider Department 01/03/24 JORGE DESAI NEKWESIFV During your visit today, we recorded the following information about you: Emily Ellis 01/03/2024 1:56 PM [facility] report scanned to [facility] Debbi Brizuela RN 01/03/2024 4:19 PM Signed Printed for review and signature. Debbi Brizuela RN 01/05/2024 9:21 AM Signed Signed form faxed to number requested. Faxed verification received. Allergies As of Date: 01/03/2024 (No Known Allergies) Date Reviewed: 12/28/2023 Reviewed by: Gregorio Ellis PCNA - Fully Assessed Reason for Visit: Front End Specialist - Other [3602] Prescriptions as of 01/05/2024 [...] 12/16/2023 Encounter Status:Closed by DEBBI BRIZUELA on 01/05/24[facility] on 73-83-0702DFDSHrxlpf Visit (NSFRVW) CHRISTIAN NOYOLA ([id number]) 1950 F Date Time Provider Department 12/28/23 1:00 PM LITZY TODD NSFRVW During your visit today, we recorded the following information about you: Pulse Blood pressure Weight Height 78/minute 137/64 87.3 kg 1.626 m Litzy Todd, INFORMIX DEVELOPER.DIABETOLOGIST 12/28/2023 11:49 PM Signed SPINE SURGERY FOLLOW UP This is an in-person visit. SERVICE DATE: 12/28/2023 SURGERY DATE: 12/15/23 Christian M Jazmín is seen for 2 week post operative [...] which included preparing to see the patient, oons-yz-vvru patient care, completing clinical documentation, obtaining and/or [...] Order(s):CONSULT TO PHYSICAL THERAPY [9032] Order #: [id number]: 1 FUTURE XR LUMBAR LIMITED 2V AP/LAT [6742623] Order #: [id number] FUTURE Prescriptions as of 12/28/2023 - gabapentin (NEURONTIN) 300 mg capsule Take 1 capsule by mouth two times a day for 90 days. - amLODIPine (NORVASC) 5 mg tablet TAKE 1 TABLET BY MOUTH ONCE EVERYDAY - olmesartan (more content not included)...[facility] 39-77-9139FVGQBxxyxuydw (NEADFV) JAZMÍNCHRISTIAN Lowery ([id number]) 1950 F Date Time Provider Department 12/18/23 JORGE DESAI NEADFV During your visit today, we recorded the following information about you: Meghan Emily 12/18/2023 9:29 AM Signed Pt phoned reporting fever with chills on Saturday 12/16 post op. Surgery was Thursday 12/14. Please call and advise Pt phone # [phone] Vinod Morton RN 12/18/2023 11:11 AM Signed [...] Date Reviewed: 12/16/2023 Reviewed by: Sylvia Gordon APRN.DIABETOLOGIST - Fully Assessed Reason for Visit: Fever [...] 12/16/2023 Encounter Status:Closed by VINOD MORTON on 12/18/23[facility] Basic metabolic 2000 panelon 38-46-2713Ulooi gap [Moles/Vol]12 mmol/LNormal8-15 [facility] HospitalComment on above:Order Comment: Specimen Type: BLOOD SPECIMENOrdering Facility: [facility] Address:[address] [place], [place] [address]Performed By: #### 29909-8 ####[facility] LABORATORYCLIA [id number] [address] [place] [address] [place] AMERICACalcium [Mass/Vol]9.0 mg/dLNormal8.5-10.2[facility] HospitalComment on above:Order Comment: Specimen Type: BLOOD SPECIMENOrdering Facility: [facility] Address:[address] [place], [place] [address]Performed By: #### 65892- 2 ####[facility] LABORATORYCLIA [id number] [place] [address] [place] AMERICAChloride [Moles/Vol]105 mmol/IQfhopn41-333Frnihghq HospitalComment on above:Order Comment: Specimen Type: BLOOD SPECIMENOrdering Facility: [facility] Address:[address] [place], [place] [address]Performed By: #### 84344-0 ####[facility] LABORATORYCLIA [id number] [place] [address] [place] AMERICACO2 [Moles/Vol]24 mmol/L Ruxlbz51-27Avnfteoa HospitalComment on above:Order Comment: Specimen Type: BLOOD SPECIMENOrdering Facility: [facility] Address:[address] [place], [place] [address]Performed By: #### 98127-1 ####H[facility]ISM LABORATORYCLIA [id number] [place] [address] [place] Creatinine [Mass/Vol]0.98 mg/dLHigh0.58-0.96[facility] HospitalComment on above: Order Comment: Specimen Type: BLOOD SPECIMENOrdering Facility: [facility] Address:[address] [place], [place] [address]Performed By: #### 85773- 2 ####H[facility] LABORATORYCLIA [id number] [address] [place], [place] [address] [place] AMERICACreatinine and Glomerular filtration rate.predicted panel (S/P/Bld)61 mL/min/1.73m???Normal>=60[facility] Medical CenterComment on above: Order Comment: Specimen Type: BLOOD SPECIMENOrdering Facility: [facility] Address:[address] [place], [place] [address]Result Comment: Estimated Glomerular Filtration Rate (eGFR) is [...] not accurately reflect actual GFR.Performed By: #### 03588-9 ####[facility] LABORATORYCLIA [id number] [place] [address] [place] AMERICAGlucose [Mass/Vol]101 mg/xSWtod54-50Hnogsn[address] Comment on above:Order Comment: Specimen Type: BLOOD SPECIMENOrdering Facility: [facility] Address:[address] [place], [place] [address]Result Comment: The [place] Diabetes Association (ADA) provides guidance for cutoff [...] Standards of Medical Care in Diabetes 2016, [employer] Diabetes Association. Diabetes Care. 2016.39(Suppl 1).Performed By: #### 86743-5 ####[facility]ISM LABORATORYCLIA [id number] [place] [address] [place] AMERICAPotassium [Moles/Vol]4.3 mmol/LNormal3.7-5.1Luthchandler [facility] medical [facility] HospitalComment on above:Order Comment: Specimen Type: BLOOD SPECIMENOrdering Facility: [facility] Address:[address] [place], [place] [address]Performed By: #### 92100-5 ####H[facility]ISM LABORATORYCLIA [id number] [address] [place], [place] [address] [place] AMERICASodium [Moles/Vol]141 mmol/CVmfvcx876-244Xfgnjdsp HospitalComment on above:Order Comment: Specimen Type: BLOOD SPECIMENOrdering Facility: [facility] Address:[address] [place], [place] [address]Performed By: #### 61196-7 ####H[facility]ISM LABORATORYCLIA [id number] [place] [address] [place] AMERICAUrea nitrogen [Mass/Vol]14 mg/dLNormal7-21[facility] HospitalComment on above:Order Comment: Specimen Type: BLOOD SPECIMENOrdering Facility: [facility] Address:[address] [place], [place] [address]Performed By: #### 10433-9 ####H[facility]ISM LABORATORYCLIA [id number] [place] [address] [place] AMERICACBC panel Auto (Bld)on 09-49-3431Mmvhkopvsum distribution width (RBC) [Ratio]12.3 %Retxci97.5-15.0[facility] HospitalComment on above:Order Comment: Specimen Type: BLOOD SPECIMEN [facility] Address: [address] [place], [place] [address]Performed By: #### 86348-9 #### [facility] CLIA [id number] [address] [place], [place] [address] [place] OF AMERICAHematocrit (Bld) [Volume fraction] 37.6 %Pkimfe77.0-46.0[facility] HospitalComment on above:Order Comment: Specimen Type: BLOOD SPECIMEN [facility] Address: [address] [place], [place] [address]Performed By: #### 31589-4 #### [facility] CLIA [id number] [address] [place], [place] [address] [place] AMERICAHemoglobin (Bld) [Mass/Vol]12.7 g/dL Uxoaxg38.5-15.5[facility] HospitalComment on above:Order Comment: Specimen Type: BLOOD SPECIMEN [facility] Address: [address] [place], [place] [address]Performed By: #### 64788-9 #### [facility] CLIA [id number] [address] [place] [address] (RBC) [Entitic mass]31.0 pg Emntyx38.0-34.0[facility] HospitalComment on above:Order Comment: Specimen Type: BLOOD SPECIMEN [facility] Address: [address] [place], [place] [address]Performed By: #### 54029-8 #### [facility] CLIA [id number] [address] [place] [address] (RBC) [Mass/Vol]33.8 g/dLNormal 30.5-36.0[facility] HospitalComment on above:Order Comment: Specimen Type: BLOOD SPECIMEN [facility] Address: [address] [place], [place] [address]Performed By: #### 77467-0 #### [facility] [place] [id number] [address] [place] [address] (RBC) [Entitic vol]91.7 fLNormal 80.0-100.0[facility] HospitalComment on above:Order Comment: Specimen Type: BLOOD SPECIMEN [facility] Address: [address] [place], [place] [address]Performed By: #### 36488-3 #### [facility] CLIA [id number] [address] [place] [address] RBC (Bld) [#/Vol]10*3/uL Normal<0.01[facility] HospitalComment on above:Order Comment: Specimen Type: BLOOD SPECIMEN [facility] Address: [address] [place], [place] [address]Performed By: #### 42269-3 #### [facility] CLIA [id number] [address] [place] [address] [place] AMERICAPlatelet mean volume (Bld) [Entitic vol]10.0 fLNormal9.0-12.7Lutheran HospitalComment on above:Order Comment: Specimen Type: BLOOD SPECIMEN [facility] Address: [address] [place], [place] [address]Performed By: #### 76644-5 #### [facility] CLIA [id number] [address] [place] [address] [place] AMERICAPlatelets (Bld) [#/Vol]155 10*3/uL Smyzmf190-636Hpveporp HospitalComment on above:Order Comment: Specimen Type: BLOOD SPECIMEN [facility] Address: [address] [place], [place] [address]Performed By: #### 89329-9 #### [facility] IA [id number] [address] [place] [address] [place] AMERICARBC (Bld) [#/Vol]4.10 10*6/uLNormal 3.90-5.20Lutheran HospitalComment on above:Order Comment: Specimen Type: BLOOD SPECIMEN [facility] Address: [address] [place], [place] [address]Performed By: #### 71218-0 #### [facility] IA [id number] [address] [place] [address] [place] AMERICAWBC (Bld) [#/Vol]6.70 10*3/uLNormal 3.70-11.00Lutheran HospitalComment on above:Order Comment: Specimen Type: BLOOD SPECIMEN [facility] Address: [address] [place], [place] [address]Performed By: #### 07780-4 #### [facility] IA [id number] [address] [place], [place] [address]CNDSon 78-25-5932REHLAEY ID: [id number] Author: SYLVIA GORDON APRN.DIABETOLOGIST Service: Neurosurgery Author Type: Nurse Practitioner Type: [...] the lives of those receiving it in long term care administrator use. Some people receiv (more content not included)...[facility] HospitalTHERAPY NT 61-18-2175OPHBHUL PERRY COUNTY [facility] HOSPITALO ID: [id number] Author: NICHOLAS CLARKE, PT Service: Physical Therapy Author Type: Physical Therapist Type: Therapy (PT/OT/Speech/Resp) Filed: 12/16/2023 10:04 Note Text: Physical Therapy Evaluation Summary SERVICE DATE: 12/16/2023 SERVICE TIME: 936 to 952 ROOM: [place] [address] PT 6 Clicks Score: 22 Discharge Readiness: [...] Walker- Standard, Elevated Toilet Seat, Lift Chair, Speed Belt Sander Tender PRIOR FUNCTIONAL LEVEL Within Functional Limits IND w/ ADL's and IADL's +drives. Ambulated w/o AD + no falls SUBJECTIVE Pt is pleasant and agreeable to PT THERAPY DIAGNOSIS Reduced mobility-other, Decreased activities of daily living (ADL), Muscle Weakness (generalized), Difficulty walking-musculoskeletal TREATMENT INTERVENTIONS Evaluation, Gait Training (59232) Timed Code Treatment (minutes): 6 Skilled Treatment [...] [place] DATE: December 16, 2023 TIME: 10:03 [facility] ID: [id number] Author: MAGALI TOSCANO, OT/L Service: ? Author Type: Occupational Therapist Type: Therapy (PT/OT/Speech/Resp) Filed: 12/16/2023 09:26 Note Text: Occupational Therapy Treatment Summary SERVICE DATE: 12/16/2023 SERVICE TIME: 853 to 919 ROOM: [place] [address] OT 6 Clicks Score: 24 DISCHARGE RECOMMENDATIONS [...] Walker- Standard, Elevated Toilet Seat, Lift Chair, Speed Belt Sander Tender (lift bed) PRIOR FUNCTIONAL LEVEL Within Functional Limits IND w/ ADL's and IADL's +drives. Ambulated w/o AD + no falls SUBJECTIVE pt agreeable to therapy and would like to go home today COGNITION THERAPY DIAGNOSIS Reduced mobility-other, Decreased activities of daily living (ADL) TREATMENT INTERVENTIONS Evaluation, Self Alf Management (07944) Timed Code Treatment (minutes): 11 Skilled Treatment [...] [place] DATE: December 16, 2023 TIME: 9:25 [facility] LUMBAR 2V AP/LATon 35-46-1139CG LUMBAR 2V AP/LAT* * *Final Report* * [...] Variants: None. IMPRESSION: Postoperative and degenerative findings. Machine Clothing Man: PSCChris Transcribe Date/Time: Dec 16 2023 11:54A Dictated by : MARISSA GAMEZ MD This examination was interpreted and the report reviewed and electronically signed by: MARISSA GAMEZ MD on Dec 16 2023 11:56AM EST [id number]. John of God HospitalANES POSTPROC EVALon 75-50-0522ZLHS POSTPROC EVALHNO ID: [id number] Author: SASHA SONG MD Service: Anesthesiology Author [...] December 15, 2023 TIME: 5:42 PM CSN: [id number] Health Main Campus PRE-OPon 57-93-6457KVDW PRE-OPHNO ID: [id number] Author: LU SCOTT MD Service: Anesthesiology Author [...] and consent discussed: yes. Patient / Responsible Alliance Party agrees to proceed: yes Patient / [...] December 15, 2023 TIME: 11:16 AM CSN: [id number] [facility] NOTon 12-15-2023 BRIEF OP NOTHNO ID: [id number] Author: JORGE DESAI MD Service: Neurosurgery Author Type: Physician Type: Brief Op Note Filed: 12/15/2023 18:21 Note Text: BRIEF OPERATIVE / PROCEDURE NOTE LOG ID: [id number] SURGERY/PROCEDURE DATE: 12/15/2023 INCISION/PROCEDURE START TIME: 12:10 PM INCISION CLOSE/PROCEDURE END TIME: 1:35 PM SURGEON(S)/PROCEDURALIST(S) AND CONSULTING SOFTWARE ENGINEER(S): Surgeon(s) and Role: * Jorge Desai MD - Primary Physician Day Care Assistant: An Bautista PA-C SURGERY/PROCEDURE(S): L3/4 LLIF ANESTHESIA: General FINDINGS: Appropriate decompression and hardware placement ESTIMATED BLOOD LOSS: 25 mls SPECIMENS: None COMPLICATIONS: None CLOSURE TECHNIQUE: Primary PRE-OP/PRE-PROCEDURE DIAGNOSIS: L3/4 lumbar stenosis with neurogenic claudication, degenerative scoliosis POST-OP/POST-PROCEDURE DIAGNOSIS: L3/4 lumbar stenosis with neurogenic claudication, degenerative scoliosis SIGNATURE: Jorge Desai MD PATIENT NAME: Christian Noyola DATE: December 15, 2023 TIME: 1:17 [facility] 03-93-2304MULBRIETWA ID: [id number] Author: LUCIANO BOSCH MD Service: General Internal [...] 15 mg injection (Toradol (more content not included)...[facility] HospitalOPERATIVE NOon [id number] NOHNO ID: [id number] Author: JORGE DESAI MD Service: Neurosurgery Author Type: Physician Type: Operative Report Filed: 12/15/2023 18:44 Note Text: OPERATIVE/PROCEDURE REPORT LOG ID: [id number] SURGERY/PROCEDURE DATE: 12/15/2023 INCISION/PROCEDURE START TIME: 12:10 PM INCISION CLOSE/PROCEDURE END TIME: 1:35 PM SURGEON(S)/PROCEDURALIST(S) AND CONSULTING SOFTWARE ENGINEER(S): Surgeon(s) and Role: * Jorge Desai MD - Primary Physician Day Care Assistant: An Bautista PA-C SURGERY/PROCEDURE(S): L3/4 LLIF ANESTHESIA: [...] Implant Name Type Inv. Item Serial No. Account Liaison Lot No. LRB No. Used Action SUBSTITUTE MASTERGRAFT CALCIUM PHOSPHATE COLLAGEN BONE GRAFT VOID FILLER - [id number] Cement / Putty SUBSTITUTE MASTERGRAFT CALCIUM PHOSPHATE COLLAGEN BONE GRAFT VOID FILLER [employer]ANEK [id number] N/A 1 Implanted GRAFT INFUSE 14MM SMALL BOVINE COLLAGEN RHBMP-2 23MM BONE ABSORBABLE SPONGE - [id number] Bone GRAFT INFUSE 14MM SMALL BOVINE COLLAGEN RHBMP-2 23MM BONE ABSORBABLE SPONGE [employer] SOF[employer]ANEK [id number] N/A 1 Implanted KNIFE [employer] ANNULOTOMY SPINE Accessories [employer] [id number] N/A 1 Non-Implant JEREL SPACER 8-15MM 20MM [...] [place] DATE: December 15, 2023 TIME: 6:21 [facility] LUMBAR 2V AP/LATon 77-69-6822AJ LUMBAR 2V AP/LAT* * *Final Report* * [...] Intraoperative examination for surgical planning and documentation. Machine Clothing Man: LARA Transcribe Date/Time: Dec 15 2023 2:50P Dictated by : JEANNE MOELLER DO This examination was interpreted and the report reviewed and electronically signed by: JEANNE MOELLER DO on Dec 15 2023 2:51PM EST [id number] City HospitalXR VERIFY LEVEL K-KCDWQ-EXxa 12-80-4985QH VERIFY LEVEL L-SPINE-NB* * *Final Report* * [...] phone and video during the surgical procedure. Machine Clothing Man: LARA Transcribe Date/Time: Dec 15 2023 12:35P Dictated by : JEANNE MOELLER DO This examination was interpreted and the report reviewed and electronically signed by: JEANNE MOELLER DO on Dec 15 2023 12:39PM EST [id number] HospitalBacteria Ur Culton 11-15-2023 Bacteria identified Cx Nom (U)CULTURE, URINE: No growth (<1,000 CFU/ml)NormalMarietta Memorial HospitalComment on above: Performed By: #### 630-4 ####[facility] LABCLIA [id number] [address] Auto Differential panel (Bld)on 42-96-7979Osnipmwxd (Bld) [#/Vol]0.03 10*3/uLNINF [facility] HospitalBasophils/100 WBC (Bld)0.6 %[facility] Memorial HospitalDifferential cell count method Nom (Bld)AutoCleveland ClinicEosinophils (Bld) [#/Vol]0.10 10*3/uL NINFCleveland ClinicEosinophils/100 WBC (Bld)2.0 %[facility] Memorial HospitalErythrocyte distribution width (RBC) [Ratio]12.2 %11.5 - 15.0 %[facility] Memorial HospitalHematocrit (Bld) [Volume fraction]43.3 %36.0 - 46.0 %[facility] Memorial HospitalHemoglobin (Bld) [Mass/Vol]14.0 g/dL11.5 - 15.5 g/dLCommunity Memorial HospitalImmature granulocytes (Bld) [#/Vol]NINFCleveland Chippewa City Montevideo HospitalImmature granulocytes/100 WBC (Bld)0.2 %[facility] Memorial HospitalLymphocytes (Bld) [#/Vol]1.59 10*3/uLCommunity Memorial HospitalLymphocytes/100 WBC (Bld)32.6 %[facility]esis HospitalH (RBC) [Entitic mass]30.3 pg26.0 - 34.0 pg Genesis HospitalHC (RBC) [Mass/Vol]32.3 g/dL30.5 - 36.0 g/dLCommunity Memorial Hospital MCV (RBC) [Entitic vol]93.7 fL80.0 - 100.0 fLCleveland ClinicMonocytes (Bld) [#/Vol]0.49 10*3/uLNINFCommunity Memorial HospitalMonocytes/100 WBC (Bld)10.0 %[facility] Memorial HospitalNeutrophils (Bld) [#/Vol]2.66 10*3/uLCommunity Memorial HospitalNeutrophils/100 WBC (Bld)54.6 %[facility] Memorial HospitalNucleated RBC (Bld) [#/Vol]NINFCUC Health Nucleated RBC/100 WBC (Bld) [Ratio]0.0 %/100 WBCCommunity Memorial HospitalPlatelet mean volume (Bld) [Entitic vol]10.2 fL9.0 - 12.7 fLCUC HealthPlatelets (Bld) [#/Vol]211 10*3/uLHastings ClinicRBC (Bld) [#/Vol]4.62 10*6/uL3.90 - 5.20 m/uL [facility] HospitalWBC (Bld) [#/Vol]4.88 10*3/uLCenterville Basophils (Bld) [#/Vol]0.03 10*3/uLNormal<0.11CHarrison Community Hospital on above:Order Comment: Specimen Type: BLOOD SPECIMENOrdering Facility: [facility] Address:[address] [place] [address] Performed By: #### 64351-3 ####[facility] LABIA [id number] [place] [address] [place] Basophils/100 WBC (Bld)0.6 %NormalSumma Health Barberton Campus on above: Order Comment: Specimen Type: BLOOD SPECIMENOrdering Facility: [facility] Address:[address] [place], [place] [address]Performed By: #### 10260- 8 ####[facility] LABCLIA [id number] [place] [address] [place] AMERICADifferential cell count method Nom (Bld)AutoNormalCHarrison Community Hospital on above:Order Comment: Specimen Type: BLOOD SPECIMENOrdering Facility: [facility] Address:[address] [place], [place] [address]Performed By: #### 41793-0 ####[facility] LABCLIA [id number] [place] [address] [place] AMERICAEosinophils (Bld) [#/Vol]0.10 10*3/uLNormal<0.46[facility] on above:Order Comment: Specimen Type: BLOOD SPECIMENOrdering Facility: [facility] Address:[address] [place], [place] [address]Performed By: #### 19783-0 ####[facility] LABCLIA [id number] [place] [address] [place] AMERICAEosinophils/100 WBC (Bld)2.0 % NormalSumma Health Barberton Campus on above:Order Comment: Specimen Type: BLOOD SPECIMENOrdering Facility: [facility] Address:[address] [place], [place] [address]Performed By: #### 92368-7 ####[facility] LABIA [id number] [place] [address] [place] AMERICAErythrocyte distribution width (RBC) [Ratio]12.2 %Normal 11.5-15.0[facility] on above:Order Comment: Specimen Type: BLOOD SPECIMENOrdering Facility: [facility] Address:[address] [place], [place] [address]Performed By: #### 56524-9 ####[facility] LABIA [id number] [place] [address] [place] AMERICAHematocrit (Bld) [Volume fraction]43.3 %Nsbbzb23.0-46.0 [facility] on above:Order Comment: Specimen Type: BLOOD SPECIMENOrdering Facility: [facility] Address:[address] [place], [place] [address]Performed By: #### 30825-6 ####[facility] LABIA [id number] [place] [address] [place] AMERICAHemoglobin (Bld) [Mass/Vol]14.0 g/uYJyfwdd41.5-15.5CCity Hospitalment on above:Order Comment: Specimen Type: BLOOD SPECIMENOrdering Facility: [facility] Address:[address] [place], [place] [address]Performed By: #### 60943-7 ####[facility] LABCLIA [id number] [place] [address] [place] Immature granulocytes (Bld) [#/Vol]10*3/uLNormal<0.10[facility] Comment on above:Order Comment: Specimen Type: BLOOD SPECIMENOrdering Facility: [facility] Address:[address] [place] [address] Performed By: #### 46324-2 ####[facility] LABCLIA [id number] [place] [address] [place] Immature granulocytes/100 WBC (Bld)0.2 %[facility] on above:Order Comment: Specimen Type: BLOOD SPECIMENOrdering Facility: [facility] Address:[address] [place] [address] Performed By: #### 99354-0 ####[facility] LABCLIA [id number] [place] [address] [place] Lymphocytes (Bld) [#/Vol]1.59 10*3/uLNormal1.00-4.00[facility] Comment on above:Order Comment: Specimen Type: BLOOD SPECIMENOrdering Facility: [facility] Address:[address] [place] [address] Performed By: #### 73627-5 ####[facility] LABCLIA [id number] [place] [address] [place] Lymphocytes/100 WBC (Bld)32.6 %NormalSumma Health Barberton Campus on above: Order Comment: Specimen Type: BLOOD SPECIMENOrdering Facility: [facility] Address:[address] [place], [place] [address]Performed By: #### 16216- 8 ####[facility] LABIA [id number] [address] (RBC) [Entitic mass]30.3 pg Whufau28.0-34.0[facility] on above:Order Comment: Specimen Type: BLOOD SPECIMENOrdering Facility: [facility] Address:[address] [place], [place] [address]Performed By: #### 94026-6 ####[facility] LABGR[facility] [id number] [address] (RBC) [Mass/Vol]32.3 g/dL Tgscel34.5-36.0[facility] on above:Order Comment: Specimen Type: BLOOD SPECIMENOrdering Facility: [facility] Address:[address] [place], [place] [address]Performed By: #### 68189-7 ####[facility] [id number] [address]V (RBC) [Entitic vol]93.7 fL Fxzckh96.0-100.0[facility] on above:Order Comment: Specimen Type: BLOOD SPECIMENOrdering Facility: [facility] Address:[address] [place], [place] [address]Performed By: #### 21289-9 ####[facility] LABGRACE [facility]OTTAGE [facility] [id number] [address]Monocytes (Bld) [#/Vol]0.49 10*3/uLNormal<0.87[facility] on above:Order Comment: Specimen Type: BLOOD SPECIMENOrdering Facility: [facility] Address:[address] [place], [place] [address]Performed By: #### 75801-4 ####[facility] LABGRACE [facility] [id number] [address]Monocytes/100 WBC (Bld)10.0 % NormalSumma Health Barberton Campus on above:Order Comment: Specimen Type: BLOOD SPECIMENOrdering Facility: [facility] Address:[address] [place] [address]Performed By: #### 47998-8 ####[facility] LABCLIA [id number] [place] [address] [place] AMERICANeutrophils (Bld) [#/Vol]2.66 10*3/uLNormal1.45-7.50[facility] Hospitalment on above:Order Comment: Specimen Type: BLOOD SPECIMENOrdering Facility: [facility] Address:[address] [place], [place] [address]Performed By: #### 27879-1 ####[facility] LABCLIA [id number] [place] [address] [place] AMERICANeutrophils/100 WBC (Bld)54.6 %NormalSumma Health Barberton Campus on above:Order Comment: Specimen Type: BLOOD SPECIMENOrdering Facility: [facility] Address:[address] [place] [address] Performed By: #### 76040-2 ####[facility] LABCLIA [id number] [place] [address] [place] Nucleated RBC (Bld) [#/Vol]10*3/uLNormal<0.01[facility] on above:Order Comment: Specimen Type: BLOOD SPECIMENOrdering Facility: [facility] Address:[address] [place] [address] Performed By: #### 73518-2 ####[facility] LABCLIA [id number] [place] [address] [place] Nucleated RBC/100 WBC (Bld) [Ratio]0.0 /100 WBCNormalCBlanchard Valley Health System [facility] Comment on above:Order Comment: Specimen Type: BLOOD SPECIMENOrdering Facility: [facility] Address:[address] [place] [address] Performed By: #### 90628-9 ####[facility] LABCLIA [id number] [place] [address] [place] Platelet mean volume (Bld) [Entitic vol]10.2 fLNormal9.0-12.7CHarrison [facility] Hospital on above:Order Comment: Specimen Type: BLOOD SPECIMENOrdering Facility: [facility] Address:[address] [place], [place] [address]Performed By: #### 82293-8 ####[facility] LABCLIA [id number] [place] [address] [place] Platelets (Bld) [#/Vol]211 10*3/oAApeebp222-095DfzhudojySumma Health Barberton Campus on above:Order Comment: Specimen Type: BLOOD SPECIMENOrdering Facility: [facility] Address:[address] [place] [address] Performed By: #### 44469-4 ####[facility]CLIA [id number] [place] [address] [place] RBC (Bld) [#/Vol]4.62 10*6/uLNormal3.90-5.20[facility] on above:Order Comment: Specimen Type: BLOOD SPECIMENOrdering Facility: [facility] Address:[address] [place], [place] [address]Performed By: #### 48611-1 ####[facility]CLIA [id number] [place] [address] [place] AMERICAWBC (Bld) [#/Vol]4.88 10*3/uLNormal3.70-11.00[facility] on above:Order Comment: Specimen Type: BLOOD SPECIMENOrdering Facility: [facility] Address:[address] [place], [place] [address]Performed By: #### 64721-4 ####[facility] LABIA [id number] [place] [address] [place] AMERICACONFIRM BLOOD TYPEon 11-15-2023 ABOONormalCHarrison Community Hospital on above:Order Comment: Specimen Type: BLOOD SPECIMEN [facility] Address: [address] [place], [place] [address]Performed By: #### CONABO #### [facility] CLIA [id number] [address] [place] [address] [place] AMERICARh Nom (Bld)PositiveNormal [facility] on above:Order Comment: Specimen Type: BLOOD SPECIMEN [facility] Address: [address] [place], [place] [address]Performed By: #### CONABO #### [facility] CLIA [id number] [address] [place] [address] [place] AMERICAComprehensive metabolic 2000 panelon 62-95-6545Cmfrony [Mass/Vol]4.3 g/dLNormal3.9-4.9CHarrison [facility] Hospital on above:Order Comment: Specimen Type: BLOOD SPECIMEN [facility] Address: [address] [place], [place] [address]Performed By: #### 50954-6, 6-4, 27907-7 #### [facility] CLIA [id number] [address] [place] [address] [place] AMERICAALP [Catalytic activity/Vol] 116 U/AUcbyhv65-591JoliciakpSumma Health Barberton Campus on above:Order Comment: Specimen Type: BLOOD SPECIMEN [facility] Address: [address] [place], [place] [address]Performed By: #### 34858-4, 2275-4, 55823-0 #### [facility] CLIA [id number] [address] [place] [address] [place] AMERICAALT [Catalytic activity/Vol] 45 U/LHigh7-38[facility] on above:Order Comment: Specimen Type: BLOOD SPECIMEN [facility] Address: [address] [place], [place] [address]Performed By: #### 64918-6, 2275-10, #### [facility] CLIA [id number] [address] [place] [address] [place] AMERICAAnion gap [Moles/Vol]10 mmol/LNormal9-18[facility] on above:Order Comment: Specimen Type: BLOOD SPECIMEN [facility] Address: [address] [place], [place] [address]Performed By: #### 75705-7, 2275-10, #### [facility] CLIA [id number] [address] [place] [address] [place] AMERICAAST [Catalytic activity/Vol] 50 U/FPlvq86-66EwmdkjhzcSumma Health Barberton Campus on above:Order Comment: Specimen Type: BLOOD SPECIMEN [facility] Address: [address] [place], [place] [address]Performed By: #### 94691-2, 2275-10, #### [facility] CLIA [id number] [address] [place] [address] [place] AMERICABilirubin [Mass/Vol]0.3 mg/dLNormal0.2-1.3CHarrison [facility] Hospital on above:Order Comment: Specimen Type: BLOOD SPECIMEN [facility] Address: [address] [place], [place] [address]Performed By: #### 98001-2, 2275-10, #### [facility] CLIA [id number] [address] [place] [address] [place] AMERICACalcium [Mass/Vol]9.9 mg/dL Normal8.5-10.2CHarrison [facility] Hospital on above:Order Comment: Specimen Type: BLOOD SPECIMEN [facility] Address: [address] [place], [place] [address]Performed By: #### 22071-7, 6-4, 70237-1 #### [facility] CLIA [id number] [address] [place] [address] [place] AMERICAChloride [Moles/Vol]105 mmol/AThutil25-033ZdwnyhkdsSumma Health Barberton Campus on above:Order Comment: Specimen Type: BLOOD SPECIMEN [facility] Address: [address] [place], [place] [address]Performed By: #### 11547-5, 6-4, 30229-5 #### [facility] CLIA [id number] [address] [place] [address] [place] AMERICACO2 [Moles/Vol]27 mmol/L Muyoat92-24KzjiopegkSumma Health Barberton Campus on above:Order Comment: Specimen Type: BLOOD SPECIMEN [facility] Address: [address] [place], [place] [address]Performed By: #### 75860-1, 2275-4, 27084-7 #### [facility] CLIA [id number] [address] [place] [address] [place] AMERICACreatinine [Mass/Vol]1.08 mg/dLHigh0.58-0.96[facility] on above:Order Comment: Specimen Type: BLOOD SPECIMEN [facility] Address: [address] [place], [place] [address]Performed By: #### 10299-6, 2275-4, 83068-4 #### [facility] CLIA [id number] [address] [place] [address] [place] AMERICACreatinine and Glomerular filtration rate.predicted panel (S/P/Bld)54 mL/min/1.73m???Low>=60[facility] on above:Order Comment: Specimen Type: BLOOD SPECIMEN [facility] Address: [address] [place] [address]Yrzpyu Comment: Estimated Glomerular Filtration Rate (eGFR) is [...] not accurately reflect actual GFR.Performed By: #### 97143-8, 2275-10, #### [facility] CLIA [id number] [address] [place] [address] [place] AMERICAGlucose [Mass/Vol]112 mg/dL Rkrw34-98CnitxztoqSumma Health Barberton Campus on above:Order Comment: Specimen Type: BLOOD SPECIMEN [facility] Address: [address] [place], [place] [address]Result Comment: The [place] Diabetes Association (ADA) provides guidance for cutoff [...] Standards of Medical Care in Diabetes 2016, [place] Diabetes Association. Diabetes Care. 2016.39(Suppl 1).Performed By: #### 65807-3, 2275-10, #### [facility] CLIA [id number] [address] [place] [address] [place] AMERICAPotassium [Moles/Vol]5.1 mmol/LNormal3.7-5.1CHarrison [facility] Hospital on above:Order Comment: Specimen Type: BLOOD SPECIMEN [facility] Address: [address] [place] [address]Performed By: #### 64037-2, 2276-4, 18085-8 #### [facility] CLIA [id number] [address] [place] [address] [place] AMERICAProtein [Mass/Vol]7.7 g/dL Normal6.3-8.0[facility] on above:Order Comment: Specimen Type: BLOOD SPECIMEN [facility] Address: [address] [place], [place] [address]Performed By: #### 96117-7, 2275-, #### [facility] CLIA [id number] [address] [place] [address] [place] AMERICASodium [Moles/Vol]142 mmol/L Bnraal390-363LotuvewcuSumma Health Barberton Campus on above:Order Comment: Specimen Type: BLOOD SPECIMEN [facility] Address: [address] [place], [place] [address]Performed By: #### 01735-5, 2275-, #### [facility] IA [id number] [address] [place] [address] [place] AMERICAUrea nitrogen [Mass/Vol]15 mg/dLNormal7-21[facility] on above:Order Comment: Specimen Type: BLOOD SPECIMEN [facility] Address: [address] [place], [place] [address]Performed By: #### 41470-8, 2275-10, #### [facility] CLIA [id number] [address] [place] [address] [place] AMERICAECG COMPLETEon 37-20-3559FST COMPLETEVentricular Rate : 62 BPM Atrial Rate : 62 BPM P-R Interval : 154 ms QRS Duration : 72 ms Q-T Interval : 392 ms QTC Calculation(Bazett) : 397 ms Calculated P Graham : 47 degrees Calculated R Graham : 24 degrees Calculated T Graham : 40 degrees NORMAL SINUS RHYTHM LOW VOLTAGE QRS, CONSIDER PULMONARY DISEASE, PERICARDIAL EFFUSION, OR NORMAL VARIANT BORDERLINE ECG Confirmed by DEBBI MANN MD (65) on 12/01/2023 10:51:09 AM NAME : CHRISTIAN NOYOLA PID : [id number] : 1950 Gender : Female Race : ORD : [id number] Procedure Date : Nov 15 2023 13:16:26 [...] By : JORGE DESAI Acquired by : Imelda shaikhMarietta Memorial HospitalFerritin SerPl-mCnckeri 04-93-2416Bgmkscae [Mass/Vol]431.0 ng/yFUrav18.7-205.1CBlanchard Valley Health [facility] Comment on above:Order Comment: Specimen Type: BLOOD SPECIMEN [facility] Address: [address] [place], [place] [address]Performed By: #### 93825-0, 2276-4, 96988-7 #### [facility] CLIA [id number] [address] [place], [place] [address]HISTORY PHYSICALon 01-50-3189XTJDZUB PHYSICALHNO ID: [id number] Author: GEORGETTE SANTOS APRN.DIABETOLOGIST Service: ? Author Type: Nurse Practitioner Type: [...] 35 kg/m2 Non-male patient STOP-Bang Score: 3 TKT4VH7-DRAk Score: Age: 65-74 Sex: female CHF history: No Hypertension history: Yes Stroke/TIA/thromboembolism history: No Vascular disease history: No Diabetes history: No BDM1JP6-RGKe Score: 3 ARISCAT Score: Age: 51-80 Preoperative [...] RFA. Reports discontinuing ph (more content not included)...NormalMarietta Memorial HospitalIron and Iron binding capacity panelon 26-09-0391Zlvx [Mass/Vol] 71 ug/tDJixpgd85-924HtcvilzwvMarietta Memorial HospitalComhuron valley-s[facility] on above:Order Comment: Specimen Type: BLOOD SPECIMEN [facility] Address: [address] [place], [place] [address], [place] [address]Performed By: #### 48015-5, 2276-4, 76285-3 #### [facility] CLIA [id number] [address] [place] [address] [place] AMERICAIron binding capacity [Mass/Vol]256 ug/wEYzzkja666-934LxvkzblhbSumma Health Barberton Campus on above:Order Comment: Specimen Type: BLOOD SPECIMEN [facility] Address: [address] [place], [place] [address]Performed By: #### 70000-5, 6-4, 80616-9 #### [facility] CLIA [id number] [address] [place] [address] [place] AMERICAIron/TIBC [Molar ratio]27.7 %Vfyrms79.0-57.0[facility] on above:Order Comment: Specimen Type: BLOOD SPECIMEN [facility] Address: [address] [place], [place] [address]Performed By: #### 62177-8, 6-4, 45490-1 #### [facility] CLIA [id number] [address] [place] [address] [place] AMERICATYPE AND SCREEN,30 DAYon 87-64-1015KHZBQdttljTtiiyvjonHarrison Community Hospital on above:Order Comment: Specimen Type: BLOOD SPECIMEN [facility] Address: [address] [place], [place] [address]Performed By: #### [id number] #### [facility] CLIA [id number] [address] [place], [place] [address] [place] AMERICAHISTORICAL AB SCR STATUS NegativeNormalCHarrison Community Hospital on above:Order Comment: Specimen Type: BLOOD SPECIMEN [facility] Address: [address] [place], [place] [address]Performed By: #### [id number] #### [facility] CLIA [id number] [address] [place] [address] [place] AMERICARh Nom (Bld)PositiveNormal [facility] on above:Order Comment: Specimen Type: BLOOD SPECIMEN [facility] Address: [address] [place], [place] [address]Performed By: #### [id number] #### [facility] CLIA [id number] [address] [place] [address] [place] AMERICAURINALYSIS, REFLEX MICROSCOPICon 64-73-7771Dthffarrn Ql (U)NegativeNormalNegativeSumma Health [facility] Campus on above:Order Comment: Specimen Type: URINE SPECIMEN [facility] Address: [address] [place], [place] [address]Performed By: #### [id number] #### [facility] CLIA [id number] [address] [place] [address] [place] AMERICAClarity (Unsp spec)Clear NormalClearCHarrison Community Hospital on above:Order Comment: Specimen Type: URINE SPECIMEN [facility] Address: [address] [place], [place] [address]Performed By: #### [id number] #### [facility] CLIA [id number] [address] [place] [address] [place] AMERICAColor (U)YellowNormalYellow [facility] on above:Order Comment: Specimen Type: URINE SPECIMEN [facility] Address: [address] [place], [place] [address]Performed By: #### [id number] #### [facility] CLIA [id number] [address] [place] [address] [place] AMERICAGlucose Test strip (U) [Mass/Vol]NegativeNormalNegativeSumma Health [facility] Campus on above:Order Comment: Specimen Type: URINE SPECIMEN [facility] Address: [address] [place], [place] [address]Performed By: #### [id number] #### [facility] CLIA [id number] [address] [place] [id number] [place] AMERICAHemoglobin Ql (U)Negative NormalNegativeSumma Health Barberton Campus on above:Order Comment: Specimen Type: URINE SPECIMEN [facility] Address: [address] [place], [place] [address]Performed By: #### [id number] #### [facility] CLIA [id number] [address] [place] [address] [place] AMERICAKetones Ql (U)NegativeNormal NegativeSumma Health Barberton Campus on above:Order Comment: Specimen Type: URINE SPECIMEN [facility] Address: [address] [place], [place] [address]Performed By: #### [id number] #### [facility] CLIA [id number] [address] [place] [address] [place] AMERICALeukocyte esterase Test strip Ql (U)NegativeNormalNegativeSumma Health [facility] on above: Order Comment: Specimen Type: URINE SPECIMEN [facility] Address: [address] [place], [place] [address]Performed By: #### [id number] #### [facility] CLIA [id number] [address] [place], [place] [address] [place] AMERICANitrite Ql (U)NegativeNormal NegativeSumma Health Barberton Campus on above:Order Comment: Specimen Type: URINE SPECIMEN [facility] Address: [address] [place], [place] [address]Performed By: #### [id number] #### [facility] CLIA [id number] [address] [place] [address] [place] AMERICApH (U)6.5 [pH]Normal<8.5 [facility] on above:Order Comment: Specimen Type: URINE SPECIMEN [facility] Address: [address] [place], [place] [address]Performed By: #### [id number] #### [facility] CLIA [id number] [address] [place] [address] [place] AMERICAProtein (U) [Mass/Vol] NegativeNormalNegativeSumma Health [facility]ton Campus on above:Order Comment: Specimen Type: URINE SPECIMEN [facility] Address: [address] [place], [place] [address]Performed By: #### [id number] #### [facility] IA [id number] [address] [place] [address] [place] AMERICASpecific gravity (U) [Rel density]1.965Yitpbt3.005-1.030[facility] on above:Order Comment: Specimen Type: URINE SPECIMEN [facility] Address: [address] [place], [place] [address]Performed By: #### [id number] #### [facility] IA [id number] [address] [place], [place] [address]Urobilinogen Ql (U)0.2 EU/dL Normal0.2-1.0 EU/dLSumma Health Barberton Campus on above:Order Comment: Specimen Type: URINE SPECIMEN [facility] Address: [address] [place], [place] [address]Performed By: #### [id number] #### [facility] IA [id number] [address] [place] [address] OF AMERICACNPNon 54-20-9658QCOB Telephone (NIQ) CHRISTIAN NOYOLA ([id number]) 1950 F Date Time Provider Department 09/05/23 JORGE DESAI During your visit today, we recorded the following information about you: Karma Navarro Tanya 09/05/2023 9:32 AM Signed Patient called to [...] (None) Encounter Status:Closed by DEBBI BRIZUELA on 09/05/23[facility] 32-88-6456FLSCCgxned Visit (NSFRVW) CHRISTIAN NOYOLA ([id number]) 1950 F Date Time Provider Department 09/04/23 [...] relief It has been (more content not included)...[facility] STEFAN CADon 56-19-0273QS MAMM SCREEN 3D STEFAN CADPatient: CHRISTIAN NOYOLA Exam Date: 07/27/2022 : 1950 Gender:F Ordering : DR JORDAN AVITIA D.O. Admission #: [id number] Family : Order #: [id number] CLICK HERE TO VIEW EXAM RADIOLOGY REPORT [...] breast cancer at age 47. LOCATION: [facility] BREAST COMPOSITION: Heterogeneously dense,which may obscure [...] by: Emily Snow MD on 07/27/2022 at 13:38[facility] HospitalMRI LSPINE WO CONon 70-88-0778VHX LSPINE WO CONEXAMINATION: MRI LSPINE WO CON HISTORY: Degeneration of [...] Electronically authenticated by: BONNY SHORE Date: 2022-06-03 11:[address] [place] [address] Without Differentialon 80-40-1538Jpdogqpeehv distribution width (RBC) [Ratio]12.9 %Hgecwk68.9-15.3FOhioHealthComment on above:Performed By: #### CBCNOOUTREACH, OUTREACH LIPID, OUTREACH CMP #### [place] [address] USAHematocrit (Bld) [Volume fraction]42.4 %Pnbxmt34.0-46.4 [facility] CenterComment on above:Performed By: #### CBCNOOUTREACH, OUTREACH LIPID, OUTREACH CMP #### [place] [address] USAHemoglobin (Bld) [Mass/Vol]14.9 g/wMMdlifh33.8-15.4 [facility] CenterComment on above:Performed By: #### CBCNOOUTREACH, OUTREACH LIPID, OUTREACH CMP #### [address] (RBC) [Entitic mass]31.9 zbPabrpe89.7-34.3FOhioHealthComment on above:Performed By: #### CBCNOOUTREACH, OUTREACH LIPID, OUTREACH CMP #### [address] (RBC) [Entitic vol]90.9 mLRvafpe13-950FerlxfsdeLakehealth Tripoint Medical CenterComment on above:Performed By: #### CBCNOOUTREACH, OUTREACH LIPID, OUTREACH CMP #### [place] [address] USAMean Corpuscular HGB Conc35.1 g/kDSqjs29.0-35.0[facility] Medical CenterComment on above:Performed By: #### CBCNOOUTREACH, OUTREACH LIPID, OUTREACH CMP #### [place] [address] USAPlatelet mean volume (Bld) [Entitic vol]8.4 fLNormal 6.3-10.7FOhioHealthComment on above:Result Comment: PERFORMED BY: [place] [address] PATHOLOGIST [employer] TE[employer]ER [employer] M.D.Performed By: #### CBCNOOUTREACH, OUTREACH LIPID, OUTREACH CMP #### [place] [address] USAPlatelets (Bld) [#/Vol]175 10*3/yOCkokbq684-525LanlludvlLakehealth Tripoint Medical CenterComment on above:Performed By: #### CBCNOOUTREACH, OUTREACH LIPID, OUTREACH CMP #### [facility] [address] [place] [address] USARBC (Bld) [#/Vol]4.66 10*6/uLNormal3.60-5.00[facility] Medical CenterComment on above:Performed By: #### CBCNOOUTREACH, OUTREACH LIPID, OUTREACH CMP #### [facility] [address] [place] [address] USAWBC (Bld) [#/Vol]5.2 10*3/uLNormal3.8-11.6FOhioHealthComment on above:Performed By: #### CBCNOOUTREACH, OUTREACH LIPID, OUTREACH CMP #### [facility] [address] [place] [address] USACMP Outreachon 73-63-2661Foafsbg [Mass/Vol]4.0 g/dLNormal 3.2-5.5FOhioHealthComment on above:Performed By: #### CBCNOOUTREACH, OUTREACH LIPID, OUTREACH CMP #### [facility] [address] [place] [address] USAALP [Catalytic activity/Vol]86 U/BSqzhpk86-30JiqexdnoiLakehealth Tripoint Medical CenterComment on above:Performed By: #### CBCNOOUTREACH, OUTREACH LIPID, OUTREACH CMP #### [facility] [address] [place] [id number] USAALT [Catalytic activity/Vol]38 U/KRsplcv95-31QnxpgycqfLakehealth Tripoint Medical CenterComment on above:Performed By: #### CBCNOOUTREACH, OUTREACH LIPID, OUTREACH CMP #### [facility] [address] [place] [phone] USAAST [Catalytic activity/Vol]31 U/ITkqtoh44-27CutaimlxiLakehealth Tripoint Medical CenterComment on above:Performed By: #### CBCNOOUTREACH, OUTREACH LIPID, OUTREACH CMP #### [facility] [address] [place] [address] USABilirubin [Mass/Vol]0.6 mg/dLNormal0.3-1.2FOhioHealthComment on above:Performed By: #### CBCNOOUTREACH, OUTREACH LIPID, OUTREACH CMP #### [facility] [address] [place] [address] USACalcium [Mass/Vol]9.6 mg/dLNormal8.2-10.2FOhioHealthComment on above:Performed By: #### CBCNOOUTREACH, OUTREACH LIPID, OUTREACH CMP #### [facility] [address] [place] [address] USAChloride [Moles/Vol]105 mmol/XKuigkp60-253KgovksnifLakehealth Tripoint Medical CenterComment on above:Performed By: #### CBCNOOUTREACH, OUTREACH LIPID, OUTREACH CMP #### [facility] [address] [place] [address] USACO2 [Moles/Vol]26.3 mmol/BWcvutv67.0-30.0[facility] Medical CenterComment on above:Performed By: #### CBCNOOUTREACH, OUTREACH LIPID, OUTREACH CMP #### [facility] [address] [place] [address] USACreatinine [Mass/Vol]1.03 mg/dLNormal0.44-1.03[facility] Medical CenterComment on above:Performed By: #### CBCNOOUTREACH, OUTREACH LIPID, OUTREACH CMP #### [facility] [address] [place] [id number] USAEstimated GFR ( [place]> 60NoGeorgetown Behavioral HospitalComment on above:Result Comment: GFR estimated reference range: According to KDOQI guidelines, <60 ml/min/1.73m2 is sufficient to diagnose a patient with chronic kidney disease.Performed By: #### CBCNOOUTREACH, OUTREACH LIPID, OUTREACH CMP #### [facility] [address] [id number] [place]Estimated GFR (Non- [place]66RebvsqCtfpnlwgtGeorgetown Behavioral HospitalComment on above:Performed By: #### CBCNOOUTREACH, OUTREACH LIPID, OUTREACH CMP #### [facility] [address] [place] [address] USAGlucose [Mass/Vol]94 mg/bSNhzfrt82-121RnenppklpLakehealth Tripoint Medical CenterComment on above:Result Comment: Random Glucose Reference Range is dependent on time and content of last meal. Glucose of more than 200 mg/dL in a nonstressed, ambulatory subject supports the diagnosis of Diabetes Mellitus. ADA recommended reference rangePerformed By: #### CBCNOOUTREACH, OUTREACH LIPID, OUTREACH CMP #### [facility] [address] [place] [address] USAPotassium [Moles/Vol]4.4 mmol/LNormal3.5-5.1FOhioHealthComment on above:Performed By: #### CBCNOOUTREACH, OUTREACH LIPID, OUTREACH CMP #### [facility] [address] [place] [address] USAProtein [Mass/Vol]7.0 g/dLNormal6.1-7.9L[facility]point Medical CenterComment on above:Performed By: #### CBCNOOUTREACH, OUTREACH LIPID, OUTREACH CMP #### [facility] [address] [place] [address] USASodium [Moles/Vol]141 mmol/SWylqep145-614FilmqagkkLakehealth Tripoint Medical CenterComment on above:Performed By: #### CBCNOOUTREACH, OUTREACH LIPID, OUTREACH CMP #### [facility] [address] [place] [address] USAUrea nitrogen [Mass/Vol]12 mg/dLNormal9-23L[facility] Tripoint Medical CenterComment on above:Performed By: #### CBCNOOUTREACH, OUTREACH LIPID, OUTREACH CMP #### [facility] [address] [place] [id number] USALipid Profile Outreachon 05-23-8365Vqyxvhcyhqb [Mass/Vol] 336 mg/dVSzwe118-727SasbqgkxaLakehealth Tripoint Medical CenterComment on above:Result Comment: Chol less than 200 mg/dl low risk Chol 201-239 mg/dl borderline risk Chol 240 mg/dl and greater high riskPerformed By: #### CBCNOOUTREACH, OUTREACH LIPID, OUTREACH CMP #### [facility] [address] [place] [address] USACholesterol in HDL [Mass/Vol]48 mg/sXJjzhtw10-94QxxxigplcLakehealth Tripoint Medical CenterComment on above:Result Comment: HDL CHOL ATP-III CLASSIFICATION Cardiovascular Risk HDL > or equal to 60 mg/dL LOW HDL < 40 mg/dL HIGHPerformed By: #### CBCNOOUTREACH, OUTREACH LIPID, OUTREACH CMP #### [facility] [address] [place] [address] USACholesterol.total/Cholesterol in HDL [Mass ratio]7.0 {ratio}Normal<5.0L[facility] Tripoint Medical CenterComment on above:Result Comment: PERFORMED BY: [place] [address] PATHOLOGIST INDUSTRIAL ECONOMICS TEACHER RANYD STEEL M.D.Performed By: #### CBCNOOUTREACH, OUTREACH LIPID, OUTREACH CMP #### [place] [address] USALDL Cholesterol,Ubbsmvjhfd862 mg/dLHigh0-100L[facility]point Medical CenterComment on above:Result Comment: LDL ATP III CLASSIFICATION LDL less than 100 mg/dL Optimal LDL 100-129 mg/dL Near or above optimal LDL 130-159 mg/dL Borderline high LDL 160-189 mg/dL High LDL greater than 189 mg/dL Very highPerformed By: #### CBCNOOUTREACH, OUTREACH LIPID, OUTREACH CMP #### [place] [id number] USATriglyceride w/Adoiwr076 mg/nJOzgz74-436YftyddqnkLakehealth Tripoint Medical CenterComment on above:Result Comment: TRIG ATP III CLASSIFICATION TRIG less than 150 mg/dL Normal TRIG 150-199 mg/dL Borderline high TRIG 200-500 mg/dL High TRIG greater than 500 mg/dL Very high Standard traceable to the Center for Disease Conrtrol and Prevention (CDC) test method.Performed By: #### CBCNOOUTREACH, OUTREACH LIPID, OUTREACH CMP #### [facility] [address] [place] [id number] USAVLDL ZKCTHHZHVWD92 mg/dLNormalLakehealth Tripoint Medical CenterComment on above:Performed By: #### CBCNOOUTREACH, OUTREACH LIPID, OUTREACH CMP #### [address] Vital Signs Date TimeVital SignValuePerforming EsnyibvurKycdtbnh31-77-2161 10:33-0500Body kkbawe010.1 cmBenjamin Ball DO Work Phone: [phone]11-11-2025 10:33-0500 Body mass index (BMI) [Ratio]31.8 kg/z2Ymzbizrs Ball DO Work Phone: [phone] [place], [place] 1283211-11-2025 10:33-0500 Body nuxons07.63 kgBenjamin Ball DO Work Phone: [phone] [place], [place] 9362211-11-2025 10:33-0500 Diastolic blood nyvdscln74 mm[Hg]Jordan Ball DO Work Phone: [phone] [place], [place] 1283211-11-2025 10:33-0500 Heart rate78 /minBenjamin Ball DO Work Phone: [phone] [place], [place] 1283211-11-2025 10:33-0500 Respiratory rate12 /minBenjamin Ball DO Work Phone: [phone] [place], [place] 1283211-11-2025 10:33-0500 Systolic blood aokefxlh216 mm[Hg]Jordan Ball DO Work Phone: [phone] [place], [place] 1283211-10-2025 09:19-0500 Body vywcry578.6 cmGrant Gloria SUPERVISOR GEAR REPAIR Work Phone: [phone] HospitalPsuazonhql36-79-9226 09:19-0500Body mass index (BMI) [Ratio]32.61 kg/f9Spfvf Castro SUPERVISOR GEAR REPAIR Work Phone: [phone] HospitalLseaszohoe24-23-9700 09:19-0500Body lcecsk74.18 kgGrant Castro SUPERVISOR GEAR REPAIR Work Phone: [phone] HospitalCktdnyynmt59-20-7396 14:05-0400Body kwyfpc033.1 cmBenjamin Ball DO Work Phone: [phone] [place], [place] 1283208-05-2025 14:05-0400 Body mass index (BMI) [Ratio]31.6 kg/c3Fjzoomln Ball DO Work Phone: [phone]08-05-2025 14:05-0400 Body khscoo58.18 kgBenjamin Ball DO Work Phone: [phone]08-05-2025 14:05-0400 Diastolic blood thxusytz61 mm[Hg]Jordan Ball DO Work Phone: [phone]08-05-2025 14:05-0400 Heart rate76 /minBenjamin Ball DO Work Phone: [phone] [place], [place] 1283208-05-2025 14:05-0400 Respiratory rate16 /minBenjamin Ball DO Work Phone: [phone] [place], [place] 1283208-05-2025 14:05-0400 SaO2% (BldA) [Mass fraction]97 %Jordan Ball DO Work Phone: [phone] [place], [place] 1283208-05-2025 14:05-0400 Systolic blood oxxjdvnf877 mm[Hg]Jordan Ball DO Work Phone: [phone] [place], [place] 1283211-05-2024 12:15-0500 Body .[address]11-05-2024 12:15-0500Body mass index (BMI) [Ratio]32.61 kg/m2Pmh [address] [place], [place] 5101111-05-2024 12:15-0500 Body giephz37.[address] [place], [place] 5101111-05-2024 08:50-0500Body height 165.1 cmJakortney Farmerston DO Work Phone: [facility] HospitalTolodwmhif95-87-1456 08:50-0500Body mass index (BMI) [Ratio]31.62 kg/i0Othmz Angela DO Work Phone: [facility] HospitalXkcjkvripa09-81-1692 08:50-0500Body .18 kgJakortney Farmerston DO Work Phone: [place] [address]Xviqykocnu31-28-6008 10:00-0400Body pqddfa035.1 cmLakehealth Tripoint Medical Center10-29-2024 10:00-0400Body mass index (BMI) [Ratio]32.3 kg/i1ZrigbbrwpLakehealth Tripoint Medical Center10-29-2024 10:00-0400Body .99 kgLakehealth Tripoint Medical Center10-29-2024 10:00-0400Diastolic blood mnmxafdk81 mm[Hg][facility]10-29-2024 10:00-0400 Heart rate59 /[facility]10-29-2024 10:00-0400 Respiratory rate12 /[facility]10-29-2024 10:00-0400 Systolic blood odkhzbak565 mm[Hg][facility]08-01-2024 11:15-0400Body zjowcl329.1 cmLakehealth Tripoint Medical Center08-01-2024 11:15-0400Body mass index (BMI) [Ratio]31.8 kg/m7ZeqlukrgrLakehealth Tripoint Medical Center08-01-2024 11:15-0400Body sgenyo23.69 kgLakehealth Tripoint Medical Center 02-08-2024 11:15-0400Heart rate68 /[facility] 02-08-2024 11:15-0400Respiratory rate12 /[facility] 12-28-2023 12:42-0400Body oflsax243.6 cmLitzy Todd INFORMIX DEVELOPER.DIABETOLOGIST Work Phone: cpromed[facility] hospitaland Etwsrw28-41-8227 12:42-0400Body mass index (BMI) [Ratio]33.03 kg/y2ZbwkexuLitzy Calderonbel INFORMIX DEVELOPER.DIABETOLOGIST Work Phone: [place] Pcsmqb01-50-3059 12:42-0400Body yjlqww29.27 kgZawesley Calderonbel INFORMIX DEVELOPER.DIABETOLOGIST Work Phone: [place] Whwbtn23-87-4187 12:42-0400Diastolic blood idhjjkfm94 mm[Hg]Litzy Todd INFORMIX DEVELOPER.DIABETOLOGIST Work Phone: cpromed[facility] hospitaland Zwlkua30-21-3279 12:42-0400Heart rate78 /min Litzy Todd INFORMIX DEVELOPER.DIABETOLOGIST Work Phone: cUC HealthOjrwmr77-55-8811 12:42-8364GzU9% (BldA) [Mass fraction]95 %Litzy Peyton INFORMIX DEVELOPER.DIABETOLOGIST Work Phone: [phone] HealthZispgj96-03-4807 12:42-0400Systolic blood tuqknulg907 mm[Hg]Litzy Todd INFORMIX DEVELOPER.DIABETOLOGIST Work Phone: [phone] HealthLjlfqe61-68-6874 13:02-0400Body .6 cmPacc 2 Work Phone: [facility]05-08-2024 13:02-0400Body mass index (BMI) [Ratio]33.07 kg/m2Pacc 2 Work Phone: [facility]05-08-2024 13:02-0400Body temperature 97.2 [degF]Pacc 2 Work Phone: [facility]05-08-2024 13:02-0400Body vmxsfi31.4 kgPacc 2 Work Phone: [facility]05-08-2024 13:02-0400Diastolic blood ygfwxhjn77 mm[Hg]Pacc 2 Work Phone: [facility]05-08-2024 13:02-0400Heart rate91 /min Pacc 2 Work Phone: [facility]05-08-2024 13:02-0400Respiratory rate 14 /minPacc 2 Work Phone: [facility]05-08-2024 13:02-1921CpA4% (BldA) [Mass fraction]100 %Pacc 2 Work Phone: [facility]05-08-2024 13:02-0400Systolic blood gtrowbyb348 mm[Hg]Pacc 2 Work Phone: [facility]11-02-2023 11:00-0400Body cbsonb209.1 cmBenjamin Ball Other [facility] [employer] Other 11-02-2023 11:00-0400Body mass index (BMI) [Ratio] 32.41 kg/i1Fkqwtbrj Ball Other [facility] [employer] Other 11-02-2023 11:00-0400Body zkefsw27.36 kgBenjamin Ball Other [place] [employer] Other 11-02-2023 11:00-0400Diastolic blood bzbkyliu90 mm[Hg] Jordan Ball Other [employer] [facility] [employer] Other 11-02-2023 11:00-0400Respiratory rate12 /minBenjamin Ball Other [place] [employer] Other 11-02-2023 11:00-0400Systolic blood cmsmbjdu635 mm[Hg] Jordan Ball Other [facility] [facility] [employer] Other 08-10-2023 13:53-0400Body yfftoz156.1 cmBenjamin Ball Other [employer] Other 08-10-2023 13:53-0400Diastolic blood lypheyse90 mm[Hg] Jordan Ball Other [employer] Other 08-10-2023 13:53-0400Systolic blood bdkelcxy331 mm[Hg] Jordan Ball Other [employer] Other 02-27-2023 12:34-0500Body jjsmxa789.6 cmJorge Desai MD Work Phone: [place] Dexmxs05-99-3969 12:34-0500Body temperature 97.59 [degF]Jorge Desai MD Work Phone: [place] Ikjjeq64-66-6414 12:34-0500Body fxkono19.91 kgJorge Desai MD Work Phone: [phone] hospitaland Dgxcet37-87-9877 12:34-0500Diastolic blood nyucokun48 mm[Hg]Jorge Desai MD Work Phone: [phone] Tcpzfl73-53-9271 12:34-0500Heart rate67 /min Jorge Desai MD Work Phone: [phone] hospitaland Vmjlux00-50-4058 12:34-0500Respiratory rate 20 /minJorge Desai MD Work Phone: [phone] hospitaland Aptzej75-64-6425 12:34-3454CdA1% (BldA) [Mass fraction]98 %Jorge Desai MD Work Phone: [phone] defiance regional hospitaland Nedwkx23-78-9304 12:34-0500Systolic blood mm[Hg]Jorge Desai MD Work Phone: [phone] Encoun[facility] Encounter DateEncounter TypeCare ProviderFacilityStart: 05-20-2025 End: 60-67-5496nbcwwfgygtXzulwwxl Ball DO Work Phone: [facility]Start: 05-20-2025 End: 62-71-7245Jsdialq encounter procedureBenjamin Adore DO-[facility] Work Phone: Start: 05-19-2025 End: 24-82-2747Lqvhjd flowsNikita Castro NP Work Phone: [facility]icsStart: 05-19-2025 End: 65-69-7378Uuxamd flowsNikita Castro SUPERVISOR GEAR REPAIR Work Phone: [facility]edicsStart: 05-19-2025 End: 18-40-9121Tqstsil encounter procedureInna Castro SUPERVISOR GEAR REPAIR Work Phone: [facility] OrthopaedicsComment on above:Pre-op exam (Primary Dx)Start: 05-19-2025 End: 52-72-5745Rmbitghgnswrb examination doneInna King Gloria SUPERVISOR GEAR REPAIR Work Phone: [facility] Work Phone: Start: 05-19-2025 End: 16-34-9458qeilinxwlmNQJGH King CRISot AvailableStart: 34-03-7478Ltd-patient / Non-visitBenjamin Ball DO-[facility] Work Phone: Start: 04-16-2025 End: 25-45-5270Iaeqlk flowsheetJr. Katerina Olguin DO Work Phone: noMS [facility]icsStart: 04-16-2025 End: 96-76-9199Iugvsj flowsheetJr. Katerina Olguin DO Work Phone: [facility]icsStart: 04-16-2025 End: 02-65-6598Ttbyib outpatient visit 25 minutesJr. Katerina Olguin DO Work Phone: [facility] OrthopaedicsComment on above:Trigger finger of left thumb (Primary Dx); Pain of left thumbStart: 04-16-2025 End: 98-84-1548xjxyospxuoMM., KATERINA Martinez AvailableStart: 04-07-2025 End: 44-34-5003Pnyvsf flowsMay HERNANDEZ Work Phone: [facility]opaedicsStart: 04-07-2025 End: 20-71-1583Omelvd flowsMay HERNANDEZ Work Phone: [facility]opaedicsStart: 04-07-2025 End: 71-17-4502Cvdhcz outpatient visit 15 minutesMatthilda HERNANDEZ Work Phone: [phone] OrthopaedicsComment on above:Thumb pain, left (Primary Dx); Trigger finger of left thumbStart: 04-07-2025 End: 45-94-1638gmzpaujupiBEFQHIX J MEYERNot AvailableStart: 02-11-2025 End: 74-22-2854razajisylxDufpidks Ball DO Work Phone: [facility] Work Phone: Start: 02-11-2025 End: 84-33-3860Qcxqvts encounter procedureBenjamin Ball DO-[facility] Work Phone: Start: 06-17-2024 End: 88-26-3389Iqemon flowsheetMaria B Apling SUPERVISOR GEAR REPAIR Work Phone: [facility]THOPAEDICSStart: 06-17-2024 End: 54-33-8504Jumqec flowsheetMaria B Apling SUPERVISOR GEAR REPAIR Work Phone: [facility]THOPAEDICSStart: 06-17-2024 End: 78-34-7604Noksxu follow up visit related to original pxMaria B Apling SUPERVISOR GEAR REPAIR Work Phone: [facility] ORTHOPAEDICSComment on above:S/P trigger finger release (Primary Dx); Carpal tunnel syndrome of right wristStart: 06-17-2024 End: 25-21-6755uvvstmbezzEGIJI B APLINGNot AvailableStart: 05-22-2024 End: 70-17-8483Pdlwpp flowsheetMaria B Apling SUPERVISOR GEAR REPAIR Work Phone: [facility]THOPAEDICSStart: 05-22-2024 End: 93-24-6334Hdyoqm flowsheetMaria B Apling SUPERVISOR GEAR REPAIR Work Phone: [facility]THOPAEDICSStart: 05-22-2024 End: 38-75-5924Ziufcp follow up visit related to original pxMaria B Apling SUPERVISOR GEAR REPAIR Work Phone: [facility] ORTHOPAEDICSComment on above:S/P trigger finger release (Primary Dx)Start: 05-22-2024 End: 51-34-9081ideumzofqnCHRHJ B APLINGNot AvailableStart: 05-15-2024 End: 07-60-6473Hatpxzhrmt and management of inpatientBENJAMIN E BALLProMedica Omaha HospitalStart: 05-14-2024 End: 39-32-7372WoqxqfHoqtp King Gloria SUPERVISOR GEAR REPAIR Work Phone: [facility] FB ORTHOPAEDICSComment on above:Trigger finger of right thumb (Primary Dx)Start: 05-14-2024 End: 37-25-1400Dtuhcq outpatient visit 15 minutesCharleskortney Miller DO Work Phone: [facility] ORTHOPAEDICSComment on above:Pain of right thumb (Primary Dx); Trigger finger of right thumbStart: 05-13-2024 End: 55-75-7198Huvled flowsheetMaria B Apling SUPERVISOR GEAR REPAIR Work Phone: [facility]THOPAEDICSStart: 05-13-2024 End: 10-97-5583Lardgc flowsheetMaria B Apling SUPERVISOR GEAR REPAIR Work Phone: [facility]THOPAEDICSStart: 05-13-2024 End: 16-91-6431Buudnh outpatient visit 15 minutesMaria B Apling SUPERVISOR GEAR REPAIR Work Phone: [facility] CI ORTHOPAEDICSComment on above:Pain of right thumb (Primary Dx); Trigger finger of right thumbStart: 05-07-2024 End: 97-67-0499qtlfkxtvznImubyingiMemorial Health System [facility] Work Phone: Start: 05-07-2024 End: 89-84-3636Einqwoe encounter procedureCannon Memorial Hospital Physician GroupCh[facility] Work Phone: Start: 30-72-2794Vhk-patient / Non-visitCannon Memorial Hospital Phys[facility] Work Phone: Start: 02-08-2024 End: 35-96-6695jtoazfcrxvRfmuqzbsiMemorial Health System [facility] Work Phone: Start: 02-08-2024 End: 12-14-3884Bfpuuhj encounter procedureCannon Memorial Hospital Physician Group-[facility] Work Phone: Start: 01-24-2024 End: 56-72-1622Rcxecudou to same day surgery garden valleyJorge Desai MD Work Phone: NeurosurgeryComment on above:Lumbar stenosis with neurogenic claudication (Primary Dx)Start: 01-24-2024 End: 27-71-3411Ygkyxtrmqdbc consultation with Andi Desai MD Work Phone: NeurosurgeryStart: 01-24-2024 End: 25-71-9833xebxbranavOKDKWM HABBOUBFacility:[facility] HospitalStart: 05-92-3674Jgdzbkoxz encounterJorge Desai MD Work Phone: NeurologyComment on above:Front End Specialist - Other Start: 01-15-2024 End: 09-97-3797cqvrdoxxbxHbrqny A Radman RT(R)RadiologyComment on above: Radiology XRStart: 76-22-6780Hacilwe encounter procedureMelonie Granado RT(R) RadiologyStart: 01-15-2024 End: 74-57-9208Hddifecbwz hospital visit by José Miguel Todd APRN.CNP Work Phone: RadiologyComment on above:S/P lumbar fusion [Z98.1] Start: 12-28-2023 End: 66-63-3041Oadcojx encounter procedureLitzy Todd APRN.CNP Work Phone: NeurosurgeryComment on above:S/P lumbar fusion (Primary Dx)Start: 12-28-2023 End: 82-22-7260wpqpwvkkxhVMZATZC J SCHABELFacility:[facility] HospitalStart: 33-29-7315Bqkokookg encounterJorge Desai MD Work Phone: NeurologyComment on above:FeverStart: 12-15-2023 End: 01-90-0327Knrbtlebgd and management of inpatientJORGE DESAI [facility]tart: 12-05-2023 End: 23-66-5962FcdiwvLqqsoh Habboub MD Work Phone: NeurologyStart: 57-77-3698Gnrwrbpec for other preprocedural examinationZACHARY [facility] HospitalStart: 11-15-2023 End: 65-47-2783Xovuqxmek to establishmentRob[place] [address] Work Phone: pre AnesthesiaStart: 11-15-2023 End: 44-49-5913ddwxirbemhPNEFXUZZ L SHEPPARDFacility:[facility] Start: 11-15-2023 End: 53-66-7892Awkscmpfwf consultationRobin V[place] [address] Work Phone: Pre AnesthesiaComment on above:Pre-op evaluation (Primary Dx); Pre-op testing; Primary hypertension; Pain in right hip; Pain, unspecifiedStart: 11-15-2023 End: 07-29-1653Imiwekk encounter statusRob[place] V[place] [address] Work Phone: [place] Clinictart: 11-15-2023 End: 65-45-5725Wsdfvgihhgeod examination doneRobin V[place] [address] Work Phone: [facility] Work Phone: Start: 51-13-7366fffwijgvkxLqdxbx Habboub MD Work Phone: NeurosurgeryStart: 80-70-2154Iggcnho encounter status Jorge Desai MD Work Phone: [place] Clinictart: 97-46-0718Xqzmbawso encounter Jorge Desai MD Work Phone: NeurologyComment on above:Surgery DateStart: 09-04-2023 End: 50-04-3364plqxgskapuBMKQShvzdgsv:[facility] Hospitaltart: 08-01-2023 End: 15-90-9394aueturudafOnqgovyj Ball Other [employer] Other Start: 37-76-2852Xpwcstmgp encounterBemiller [facility] ClinicStart: 06-21-2023 End: 97-04-3594glzzzrwrfqSreqjcfc Ball Other [employer] Other Start: 80-42-2245Fmdgzovqm encounterBenjamin BallFPG [facility] ClinicStart: 06-19-2023 End: 40-08-8164hxnzbmrbukMoqvhslo Ball Other [employer] Other Start: 60-84-0359Jubhff outpatient visit 15 minutes Jordan BallFPG [facility] Medical ClinicStart: 05-18-2023 End: 64-44-4508hwoxyhvgiyBdrxiual Ball Other [employer] Other Start: 08-28-5876Tnptkfmfe encounterBenjamin BallFPG [facility] Medical ClinicStart: 05-11-2023 End: 31-85-8351qdrwcmvevkRpaalsdl Ball Other [facility] [employer] Other Start: 02-55-9093Lsnyvt outpatient visit 25 minutes Jordan BallFPG Ball Medical ClinicStart: 03-21-2023 End: 72-54-0962fawgjsvybwVvdikemw Ball Other [facility] [employer] Other Start: 03-85-8084Axrhrdghh encounterBenjamin BallFP[facility] ClinicStart: 02-19-2023 End: 72-55-1484yvqqnbrqctVrcylobz Ball Other [facility] [employer] Other Start: 03-36-4210Guydyceex encounterBenjamin BallFP[facility] ClinicStart: 02-16-2023 End: 03-22-1418farngixtdaFledcuwh Ball Other no[employer] Other Start: 93-36-0214Slruircto encounterBenjamin BallFPG [facility] Medical ClinicStart: 02-10-2023 End: 28-35-0032mfvilvqlbjGhwunjex Ball Other [place] [employer] Other Start: 35-40-6102Eimghtmfp encounterBemiller [facility] ClinicStart: 02-09-2023 End: 13-80-4193ejjwlapgbxZuxtllij Ball Other [facility] [employer] Other Start: 75-34-8815Vejnwjfta encounterBenkayt [facility] ClinicStart: 02-06-2023 End: 09-57-8200noautvztnrYniczphJessica Mi MDFacility:[facility] [place] Start: 12-06-2022 End: 38-60-9019wnhjjngknnHKPUGEVAJDKB LAKSHMIPATHY .Facility:R6Xurwf: 11-15-2022 End: 34-47-9555rkrnmzlyorLQOGYREXAXTK LAKSHMIPATHY .Facility:J8Wynah: 11-03-2022 End: 35-15-8959hmpfpqdtuiQPJECMAVYEYJ LAKSHMIPATHY .Facility:P4Jbptr: 10-18-2022 End: 88-31-9446rlnsywjldwBVZFALRPNNLH LAKSHMIPATHY .Facility:K4Fjgxo: 10-06-2022 End: 34-33-7175rrvxdikpliLTKSOGHMLHJU LAKSHMIPATHY .Facility:P4Foqzk: 09-09-2022 End: 62-73-1384rqermavmnhZTLW GREWAL .Facility:P9Dctcz: 59-73-7295Gryjychyg encounterJorge Desai MD Work Phone: NeurologyComment on above:Received Outside Medical RecordsStart: 09-08-2022 End: 30-85-3875cbtkokmoozWLXN URI .Facility:T4Exkui: 09-05-2022 End: 42-46-4672Ypthoit encounter procedureJorge Desai MD Work Phone: NeurosurgeryComment on above:Degenerative scoliosis (Primary Dx)Start: 08-02-2022 End: 46-85-6358gzhuiothstEU ZACARIAS SAMUEL .Facility:T0Wjknc: 07-27-2022 End: 65-38-1212nomqttpoeoQT BENJAMIN BALLFacility:V0Nqgcg: 07-19-2022 End: 77-15-6852iuuzhocicpKK ZACARIAS SAMUEL .Facility:Q9Epwdu: 06-03-2022 End: 38-67-1303bnozfbscugKF BENJAMIN BALLFacility:H1 Procedures DateProcedureProcedure DetailPerforming ClinicianStart: 04-79-0970Edcki spine lumbosacral 2/3 viewsZachary Varinder Todd INFORMIX DEVELOPER.DIABETOLOGIST Work Phone: Start: 90-96-3717Bdgsiboz screenZACHASEVEN TODDComment on above:Order Comment: Specimen Type: BLOOD SPECIMEN Ordering Facility: [facility] Address: [address] [place], [place] [address]Performed By: #### [id number] #### [facility] CLIA [id number] [address] [place] [address] AMERICAStart: 42-61-4936Tfv routine ecg w/least 12 lds i&r onlyCcf ProviderH/O: surgeryS/P trigger finger release Eula B Apling SUPERVISOR GEAR REPAIR Work Phone: H/O: surgeryS/P trigger finger releaseMaria B Apling SUPERVISOR GEAR REPAIR Work Phone: Plan of Treatment DateCare ActivityDetailAuthorStart: 51-75-2390Hczoaaex ScreeningDiabetes ScreeningCleveland Clinictart: 85-12-9961Ijmqqzmq ScreeningDiabetes Screening [facility] Clinictart: 49-02-8001Fbaevbtwb for malignant neoplasm of colon [facility] Clinictart: 06-16-2025 End: 15-40-8287Pyimpjx encounter hxzvcbwde21/08/2025 2:15 PM EST Office Visit [facility] [address] [place] [phone] Inna Castro, ZACHARY [address] [place] [address] [facility]edicsStart: 87-56-1010DEZKU-19 Vaccine ( season)COVID-19 Vaccine ( season)[facility] HealthcareStart: 05-19-2025 End: 88-26-3181Xcldetn encounter procedureNOMS [facility] OrthopaedicsComment on above:ArrivedStart: 65-70-2204Fmufv BMI ScreeningAdult BMI ScreeningWexner Medical Center SystemStart: 22-21-3906Olqbzcg ScreeningTobacco ScreeningProMercy Health St. [facility] SystemStart: 04-16-2025 End: 53-84-9683Wkevjih encounter owbgdvlui08/08/2025 10:45 AM EDT Office Visit [facility] [address] [place] [id number] Jr. Katerina Olguin DO [address] [place] [address] ArrivedN[facility] Comment on above:ArrivedStart: 04-07-2025 End: 18-99-8579Hfkvbyn encounter klkqpyobb09/29/2025 10:45 AM EDT Office Visit [facility] [address] [place] [address] Nicole Mitchell, PA [address] [place] [id number] Thumb pain, left (Primary Dx); Trigger finger of left thumbNOMS Paz OrthopaedicsComment on above:Thumb pain, left (Primary Dx); Trigger finger of left thumbStart: 12-23-3291Ajmrguiwk vaccinationInfluenza Vaccine (#1)[facility] HealthcareStart: 06-19-2024 End: 95-96-5727Pyqfefs encounter rydenqoyo59/11/2024 8:30 AM EST Office Visit [facility] [address] [place] [address] Eula Castillo, SUPER[employer] [address] [place] [address] [facility]ICSStart: 06-17-2024 End: 91-96-4858Lmvvctu encounter jnpbmviza11/09/2024 9:30 AM EST Office Visit [facility] [address] [place] [address] Eula Castillo, SUPERVISOR GEAR REPAIR [address] [place] [address] S/P trigger finger release (Primary Dx) [facility] ORTHOPAEDICSComment on above:S/P trigger finger release (Primary Dx) Start: 05-22-2024 End: 74-65-6102Nebfrbo encounter icfylggnc64/13/2024 9:00 AM EST Office Visit [facility] [address] [place] [address] Eula Castillo, SUPERVISOR GEAR REPAIR [address] [place] [address] [facility]ICSStart: 05-15-2024 End: 08-96-3022Ljrzat sheath incisionRELEASE TRIGGER FINGER right trigger thumb 05/15/2024 10:03 AM ESTFREMONT SURGERYStart: 05-14-2024 End: 34-06-7076Ovtrrjr encounter sjxexnsty78/05/2024 9:00 AM EST Office Visit [facility] [address] [place] [address] Rossana Miller DO [address] [place] [address] [facility]Start: 05-13-2024 End: 30-62-2573Xuavfdp encounter nhyaebezf04/04/2024 1:00 PM EST Office Visit [facility] [address] [place] [address] Eula Castillo, SUPERVISOR GEAR REPAIR [address] [place] [address] ArrivedNOMS CI ORTHOPAEDICSComment on above:ArrivedStart: 34-71-0653Irnipcm [facility] Work Phone: Start: 26-45-5286KOpO,Tdap and Td Vaccines (2 - Td or Tdap)DTaP,Tdap and Td Vaccines (2 - Td or Tdap)[facility] Tappx SystemStart: 08-02-1602Eflidmkav vaccinationInfluenza Vaccine (#1)[facility]: 01-24-2024 End: 38-79-1989Mppowwntz to same day surgery wwmgjp0201/24/2024 3:20 PM EDT [facility] Neurosurgery [address] [facility] [place] [address] [place] [address] [place] [address] VV Post opNeurosurgeryComment on above:VV Post opStart: 12-28-2023 End: 74-83-9326Cjdfrma encounter wocegqpkw80/20/2024 1:00 PM EDT Office Visit Neurosurgery [address] [place] [address] Jodi Vega PA-C [address] [place] [address] post opNeurosurgeryComment on above:post opStart: 12-15-2023 End: 57-01-3574Jcdjxoqxz to same day surgery gnhlvt6712/15/2023 10:00 AM EDT - 12/15/2023 1:20 PM EDT Surgery [facility] Operating Room [address] [address] [place] [address] [place] [address] LATERAL INTERBODY FUSION (LIF); [facility] Operating RoomComment on above:LATERAL INTERBODY FUSION (LIF); LUMBARStart: 12-15-2023 End: 76-13-9442Sedkenomq for spine surgery only structuralSPINE ALLOGRAFT Spinal stenosis, lumbar region with neurogenic claudication 12/15/2023 10:00 AM EDTLU ORStart: 12-15-2023 End: 70-45-3011Oiabrnjxkhn anterior interbody lumbarLATERAL INTERBODY FUSION (LIF); LUMBAR Spinal stenosis, lumbar region with neurogenic claudication 0 12/15/2023 10:00 AM EDTLU ORStart: 12-15-2023 End: 66-31-4368Jlwd biomchn dev intervertebral dsc spc w/arthrdINSERTION INTERBODY BIOMED DEVICE(S) W/ANT INSTR ANCHORING TO DISC SPACE W/INTERBODY FUSION,EA INTERSPACE Spinal stenosis, lumbar region with neurogenic claudication 12/15/2023 10:00 AM EDTLU ORStart: 81-33-6116Uqoxoeparl hospital visit by ucnaxqyjj90/07/2024 10:00 AM EDT Hospital Encounter [facility] Operating Room [address] [address] [place] [address] [place] [id number] Spinal stenosis, lumbar region with neurogenic claudication [M48.062][facility] Operating RoomComment on above:Spinal stenosis, lumbar region with neurogenic claudication [M48.062]Start: 12-05-2023 End: 27-29-8421Alpkedh encounter yddiahzhx25/28/2024 11:45 AM EDT Office [place] [address] [facility] registrationFinancial Clearance Phone ScreeningComment on above:surgica registrationStart: 11-15-2023 End: 46-14-2047Xgdwjoca identified in Urine by CultureCommunity Memorial HospitalComment on above:Expected: 11/15/2023, Expires: 02/14/2024Start: 11-15-2023 End: 40-58-5300Kujbnlhwmgqjo metabolic 2000 panel - Serum or PlasmaParkview Health [facility] Work Phone: Comment on above:Expected: 11/15/2023, Expires: 02/14/2024Start: 11-15-2023 End: 76-92-8794VEWHNPY BLOOD TYPECommunity Memorial HospitalComment on above:Expected: 11/15/2023, Expires: 02/14/2024Start: 11-15-2023 End: 69-05-3647Lpumyqzb [Mass/volume] in Serum or PlasmaCommunity Memorial HospitalComment on above:Expected: 11/15/2023, Expires: 02/14/2024Start: 11-15-2023 End: 31-20-8464Ikfc and Iron binding capacity panel - Serum or PlasmaCommunity Memorial HospitalComment on above:Expected: 11/15/2023, Expires: 02/14/2024Start: 11-15-2023 End: 43-91-0947FQJF AND SCREEN,30 DAYCommunity Memorial HospitalComment on above:Expected: 11/15/2023, Expires: 02/14/2024Start: 11-15-2023 End: 41-47-5280JYGMZNHCAP, REFLEX MICROSCOPICCommunity Memorial HospitalComment on above: Expected: 11/15/2023, Expires: 02/14/2024Start: 03-50-1266Glopq-19 Vaccine ( season)Covid-19 Vaccine ( season)[facility]: 97-41-4510Fygcxrwf Vaccine (2 of 2)Shingrix Vaccine (2 of 2)[facility] Start: 50-90-0134Yeejjel Directive DiscussionAdvance Directive Discussion [facility]: 91-97-2060Ucxuolabhl Health ScreeningBehavioral Health ScreeningC[facility]ict[facility]: 38-58-7772Jlhxumwdzu AssessmentDepression AssessmentC[facility]: 97-02-7778CGVFLHP DIRECTIVE DISCUSSIONADVANCE DIRECTIVE DISCUSSIONC[facility]: 63-60-5312UMZJBPMKCZ ASSESSMENT DEPRESSION ASSESSMENTC[facility]: 46-92-2902Yicroxnpcfnw Vaccine: 65+ (3 of 3 - PPSV23 or PCV20)Pneumococcal Vaccine: 65+ (3 of 3 - PPSV23 or PCV20) [facility]: 94-23-3844Ccgzoqstvlrl Vaccine: 65+ Years (3 of 3 - PCV20 or PCV21)Pneumococcal Vaccine: 65+ Years (3 of 3 - PCV20 or PCV21)[facility] HealthcareStart: 69-98-8444Dfizgrfrcnhm Vaccine: 65+ Years (3 of 3 - PPSV23 or PCV20)Pneumococcal Vaccine: 65+ Years (3 of 3 - PPSV23 or PCV20)[facility] Start: 82-90-9816Jumkbsxbanqf Vaccine: 65+ (2 of 2 - PCV)Pneumococcal Vaccine: 65+ (2 of 2 - PCV)[facility]: 49-22-1494KOKK DENSITYBONE DENSITY [facility]: 84-23-4212Iudz Risk ScreeningFall Risk ScreeningWexner Medical Center SystemStart: 57-91-4063VJVUCDTACRJD: 65+ (1 - PCV)PNEUMOCOCCAL: 65+ (1 - PCV)[facility]: 83-05-2226Qrdlxcmgv for osteoporosisBone Density ScreeningC[facility]: 43-99-4522Raeju microalbumin profileDTaP,Tdap,Td Vaccine (1 - Tdap)[facility]: 21-14-2714NNI Vaccine (1 - 1-dose 60+ series)RSV Vaccine (1 - 1-dose 60+ series)[facility]: 2000 SHINGRIX VACCINE (1 of 2)SHINGRIX VACCINE (1 of 2)[facility]: 06-56-3954GPPKXJKNS (FIT-DNA)COLOGUARD (FIT-DNA)[facility]: 69-02-2992AbnmzylcvksHETOSQFUCPPOybwcxnjj ClinicStart: 63-24-0043WCUNYPEOHW CANCER SCREENINGCOLORECTAL CANCER SCREENINGC[facility] Clin[facility]: 39-82-1635TZ COLONOGRAPHYCT COLONOGRAPHYC[facility]: 00-92-7611KWYYPXMD SCREEN DIABETES SCREENCleveland [facility]: 09-28-1536Mcjfbpxe ScreeningDiabetes ScreeningC[facility]: 46-73-5547IQQPE OCCULT BLOODFECAL OCCULT BLOOD [facility]: 55-76-5418Crwrv panelLipid ScreeningCommunity Memorial Hospital Start: 11-43-9249ZOZJW SCREENLIPID SCREENCleveland Clinictart: 1995 Screening for malignant neoplasm of colonC[facility]: 1995 SIGMOIDOSCOPYSIGMOIDOSCOPYC[facility]: 65-81-5962DobjqticpnnNKTOTXKKN [facility]: 85-17-8198Dlwdqpakf for malignant neoplasm of breast [facility]: 39-06-5654Ijbcv microalbumin profileCommunity Memorial Hospital Start: 49-33-0559Gcrmj BMI Follow Up PlanAdult BMI Follow Up PlanPerson Memorial Hospitaltart: 65-06-6652Rxitwf PCP Team Chronic Disease VisitAnnual PCP Team Chronic Disease VisitC[facility] Clinict[facility]: 68-39-3950IU Controlled (<130/80)BP Controlled (<130/80)[facility]: 43-65-9330WTPZQSEFI C SCREENINGHEPATITIS C SCREENINGC[facility]: 53-27-9516Maehfnxhk C screeningHepatitis C ScreeningC[facility]: 29-36-3954Ztmxbxkxkd ScreeningDepression ScreeningPerson Memorial Hospitaltart: 21-17-3940Xxozdskqz for malignant neoplasm of colonNOMS HealthcareComprehensive metabolic 2000 panel - Serum or PlasmaLakehealth Tripoint Medical CenterECG COMPLETECommunity Memorial Hospital Comment on above:Ordered: 4Patient referralUc [facility] Work Phone: US PelvisLakehealth Tripoint Medical Center End: 57-23-5758TI Lumbar spine AP and LateralXR LUMBAR LIMITED 2V AP/LAT Radiology Routine S/P lumbar fusion 1 Occurrences starting 12/28/2023 until [facility] Work Phone: comment on above:1 Occurrences starting 12/28/2023 until 5CK[facility] Immunizations Immunization DateImmunizationNotesCare OkifvjzzGlskpwzf27-56-7999ffhlgdmgu virus vaccine, unspecified formulationJr. Stepanic DO Work Phone: NOMercy [facility]-Brooks HospitalVanxuwhqjh83-84-6250jiauzhixb, high dose seasonal, preservative-freeGrant Gloria SUPERVISOR GEAR REPAIR Work Phone: [facility]OM[facility] HospitalVrxhczkkrs85-86-5414ilgkuazia virus vaccine, unspecified formulationMananda HERNANDEZ Work Phone: [facility] HospitalSopnkhmxzy36-76-5442YULLX-84 mRNA Bivalent Booster ([employer])Jordan Avitia DO Work Phone: [facility]09-01-2024influenza virus vaccine, unspecified formulationBenjamin Ball DO Work Phone: [facility]03-09-2024zoster vaccine recombinantGrant Castro SUPERVISOR GEAR REPAIR Work Phone: [facility] HospitalLnlgrosygb97-87-3929jzrgyo vaccine recombinant Inna Castro SUPERVISOR GEAR REPAIR Work Phone: [facility] HospitalWcvcfybcuo71-31-9282Yuotyquxm, Seasonal, Quadrivalent, AdjuvantedGrant Castro SUPERVISOR GEAR REPAIR Work Phone: [facility] HospitalWxjlqqudtq11-29-2654fpmoyvmxh virus vaccine, unspecified formulationMelonie GRANADOS(R)Community Memorial HospitalHkqzud09-12-0812LZHDZ-90 Pfizer (bivalent)Jordan Avitia Other [facility]10-17-2022influenza, high dose seasonal, preservative-freeBenjamin Adore Other [employer] Other 64-92570284-66-3355KYMTK-38 Pfizer (bivalent)Jordan Avitia Other [facility]10-17-2022influenza virus vaccine, unspecified formulationLakehealth Tripoint Medical Center 24-79-7496Oproqzdym, Seasonal, Quadrivalent, AdjuvantedGrant Castro SUPERVISOR GEAR REPAIR Work Phone: [facility] HospitalUasjgzhlaz43-78-1742bpckcnafi, injectable, quadrivalent, preservative freeGrant Castro SUPERVISOR GEAR REPAIR Work Phone: [facility] HospitalHdmxakulkw39-98-5428BZBYT-45 PfizerBenjamin Ball Other [facility]10-30-2021Influenza, Seasonal, Quadrivalent, AdjuvantedGrant Castro SUPERVISOR GEAR REPAIR Work Phone: [facility] HospitalOrkarebxfi99-31-5691mfoaaqxzl, injectable, quadrivalent, preservative freeGrant Castro SUPERVISOR GEAR REPAIR Work Phone: [facility] HospitalJciquvztps27-22-5211VRIEA-98 Vaccine Pfizer - Documentation Purposes OnlyBemiller Avitia Other [facility]08-25-2020influenza virus vaccine, split virus (incl. purified surface antigen)Jordan Avitia Other [employer] Other [id number] virus vaccine, unspecified formulationLakehealth Tripoint Medical Center08-25-2020influenza, injectable, quadrivalent, preservative freeGrant Castro SUPERVISOR GEAR REPAIR Work Phone: [facility] HospitalHfrcedredb59-72-6406cgbqcqrim, live, intranasal, quadrivalentGrant Castro SUPERVISOR GEAR REPAIR Work Phone: [facility] HospitalVqxsgbameh51-86-4818uytdzavbo virus vaccine, split virus (incl. purified surface antigen)Jordan Avitia Other [employer] Other 868911-98-5242ciinexrrb virus vaccine, unspecified formulationLakehealth Tripoint Medical Center10-08-2018Seasonal trivalent influenza vaccine, adjuvanted, preservative freeGrant Castro SUPERVISOR GEAR REPAIR Work Phone: [facility] HospitalOunkhpeuay33-82-5622xvbrgyempzqf conjugate vaccine, 13 valentBenjazaid Avitia Other [facility]10-02-2015influenza, seasonal, injectable, preservative freeGrant Castro SUPERVISOR GEAR REPAIR Work Phone: [facility] HospitalTskkyireja72-81-7370buwsdwashsng polysaccharide vaccine, 23 valentBenkaty Avitia Other [facility]10-07-2014tetanus and diphtheria toxoids, adsorbed, preservative free, for adult use (5 Lf of tetanus toxoid and 2 Lf of diphtheria toxoid)Jordan Avitia Other [facility]04-04-2014 pneumococcal polysaccharide vaccine, 23 valentBenkaty Avitia Other [facility] Payers DatePayer CategoryPayerPolicy [id number] Health InsuranceAETNA [id number] Managed Care - POSAETNA Member Subscriber Plan / Payer (Effective 2023-Present) Name: Christian Noyola Relation to Subscriber: Self Name: Christian Noyola Payer ID: 1 (NAIC) Group ID: Not on file Type: Not on file Address: [place] [id number] Health [id number] [id number] 64-79-3153Plthjnk2.2.840.450339.1.13.159.2.7.3.906832.93688-45-6221Ucuaiuf [id number] [id number] [id number] 1950 [id number] 2.840.1.507415.3.57[id number] 2.0.1.594873.3.57[id number] 2.16.840.1.071747.3.57[id number] 2.16.840.1.427770.3.57[id number] 2.16.840.1.447077.3.57[id number] 2.16.840.1.714144.3.57[id number] 2.16.840.1.301311.3.579.[id number] 2.16840.1.748521.3.57[id number] 2.16.840.1.866042.3.57[id number] 2.840.1.387668.3.57[id number] 2.16840.1.654438.3.579.[id number] 2.16.840.1.909047.3.57[id number] 2.16840.1.818828.3.57[id number] 2.16840.1.188782.3.579.2.5[id number] 2.16.840.1.128849.3.579.2.2[id number] 2.16.840.1.448517.3.579.2.952[id number] 2.16.840.1.718755.3.57[id number] 2.16.840.1.914881.3.579.2.[id number] 2.16.840.1.960[id number]-[id number] Health [id number] [id number]-twbRwkc Pay [id number] Social History DateTypeDetailFacilityStart: 09-05-2022 End: 99-15-4226Ondnjbu smoking status NHISEx-smokerCommunity Memorial Hospital End: 87-93-4373Xnkwpjc of tobacco useCurrent smokerCommunity Memorial Hospital End: 80-94-7931Gghajyn of tobacco useCigarette SmokerC[facility] Clinict[facility]: 51-13-9487Syc Assigned At BirthFemaleCohiohealth [facility] ClinicStart: 09-04-2023 End: 68-67-8938Wjf Assigned At BirthC[facility]: 09-04-2023 End: 50-81-3833Uokuquw of Social functionC[facility] Clinict[facility]: 72-27-2870Nthal Depression Screening Pwjsptiuba7Ppkvtapus ClinicStart: 16-52-0586Bqenad identity Identifies as female gender (finding)[facility]: 90-95-4978Vnwnbz orientationHeterosexual (finding)[facility]: 11-15-2023 End: 88-00-1352Nwhomrg intakeCurrent drinker of alcohol (finding)[facility]: 97-17-9900Vrzvwgp Commentspecial occasionsC[facility]: 01-25-5988Pjvfocx smoking status NHISNever smoked tobaccoNOMS HealthcareStart: 05-08-2023 End: 71-49-5910Qnqtvgk use and exposureSmokeless tobacco non-userNOMS Healthcare Start: 84-28-5292Vlv assigned at birthNot on fileNOMS HealthcareStart: 13-99-3458Ophqyvh CommentsocialProMedica Health SystemStart: 60-81-1602CrhXhpyvb (finding)[facility] Medical Equipment Procedure CodeEquipment CodeEquipment Original TextEquipment IdentifierDates Graft Infuse 14mm Small Bovine Collagen Rhbmp-2 23mm Bone Absorbable Sponge - [id number]: 67-09-2891Dxamstjbue Mastergraft Calcium Phosphate Collagen Bone Graft Void Filler - [id number]: 09-14-6277Ofbk Spacer 8-15mm 20mm X 55mm [id number]: 91-88-1451Hmqt Drilling Screw Variable Angle 5.5mm [id number]: 12-15-2023 Clinical Notes 07-19-2022 to 05-19-2025 Note Date & JsbnMdwzWhiqklcq11-56-5068 History of Present illness Narrative* Inna Castro NP - 05/19/2025 9:30 AM EST Images from the original note were not included. GENERAL HISTORY AND PHYSICAL: NAME: Christian Noyola : 1950 HISTORY OF PRESENT ILLNESS: Christian Noyola is an 74 y.o. @ [...] numbness. Vitals: Body mass index is 32.61 kg/m . PHYSICAL EXAM: Physical Exam Constitutional: General: She [...] surgery scheduled. SURGERY INSTRUCTIONS May PRE CERT [facility] - MEDICARE Follow up in about 4 weeks (around 06/16/2025) for Post-Op June 16 @ 2:15 with Inna in [place]. [1] Past Medical History: Diagnosis Date Dry eyes April 2024 GERD (gastroesophageal reflux disease) Hepatitis HTN (hypertension) Hyperlipidemia [2] Past Surgical History: Procedure Laterality Date LUMBAR SPINE SURGERY 12/15/2023 Dr. Miller SHOULDER SURGERY 2019 Dr. Mathew TRIGGER FINGER RELEASE Right 05/15/2024 Dr. Miller RT Thumb [3] No Known Allergies documented in this encounterReynolds County General Memorial HospitalIiuoxacfuh52-13-6062 History of Present illness Narrative* Jr. Katerina Olguin DO - 04/16/2025 10:45 AM EDT Images [...] DENIES N/T. LIMITED ROM WHEN LOCKED. GOOD APPRENTICE/LINEMAN / GRASP. DENIES WEAKNESS / STIFFNESS. SOME [...] for requiring urgent evaluation. documented in this encounterReynolds County General Memorial HospitalEwtcpadhrl93-24-7007 History of Present illness Narrative* DAVID Avendaño [...] DENIES N/T. LIMITED ROM WHEN LOCKED. GOOD APPRENTICE/LINEMAN / GRASP. DENIES WEAKNESS / STIFFNESS. OCCASIONALLY [...] is normal. Strength additional comments: 5/5 EQUAL APPRENTICE/LINEMAN STRENGTH Neurovascular Left Left neurovascular exam is [...] a family gathering approximately 2 weeks before . Considering surgical intervention for release due to [...] requiring urgent evaluation. Visit was preformed using [employer]dock[employer] pilot speech recognition. documented in this encounterReynolds County General Memorial HospitalXcawoakjdm26-31-9368 History of Present illness Narrative* Eula Castillo NP - 06/17/2024 9:30 AM EST Images from [...] supplier standards were given to the patient. [employer] patient agreement was completed at time of [...] call us. F/U prn documented in this encounterReynolds County General Memorial HospitalVlfdfhhjor53-13-2953 History of Present illness Narrative* Eula Castillo [...] f/u in 4 weeks documented in this [facility]11-05-2024 Telephone encounter Note* Telephone Encounter - Inna Castro NP - 05/14/2024 12:23 PM EST Post op pain rx. PDMP reviewed [facility] HospitalZuqlglqabp47-20-6787 Miscellaneous Notes* Telephone Encounter - Inna Castro NP - 05/14/2024 12:23 PM EST Post op pain rx. PDMP reviewed documented in this [facility]11-05-2024 Nurse Note* Perioperative Nursing Note - Mariza Watson RN - 05/14/2024 12:16 PM EST Preoperative Education Checklist- General Surgery date: 05/15/24 Surgery time: 1015a Arrival time: 815a 1. Bring a photo ID and your insurance card with you the day of surgery. You will check in at the main lobby of the [facility]- registration desk is straight ahead as soon as you walk in. Tell them you are here for surgery. 2. If you have a Living Will/Durable Power of Chamber Walker for Health Care that is not on [...] after you have bathed. 5. NO nail tristanian/acrylic on at least one finger. If you are having a hand, wrist or foot surgery then all nail tristanian and artificial/acrylic nails must be removed from [...] please call the Preadmission Testing office at [phone], Mon.-Fri. 7 a.m.-3 p.m. Leave a voicemail if needed. Pre-Surgery Instructions: Medication Instructions amLODIPine (NORVASC) 5 mg tablet Take morning of procedure olmesartan (BENICAR) 20 mg tablet Stop taking 0 days prior to procedure ibuprofen (MOTRIN) 400 mg tablet Stop now egisfxkb-vefu-QR-calcium &mins (THERAGRAN-M) 9 mg iron-400 mcg tablet Stop taking 0 days prior to procedure [employer]11-05-2024 Miscellaneous Notes* Perioperative Nursing Note - Mariza Watson RN - 05/14/2024 12:16 PM EST Preoperative Education Checklist- General Surgery date: 05/15/24 Surgery time: 1015a Arrival time: 815a 1. Bring a photo ID and your insurance card with you the day of surgery. You will check in at the main lobby of the [facility]- registration desk is straight ahead as soon as you walk in. Tell them you are here for surgery. 2. If you have a Living Will/Durable Power of Chamber Walker for Health Care that is not on [...] after you have bathed. 5. NO nail tristanian/acrylic on at least one finger. If you are having a hand, wrist or foot surgery then all nail tristanian and artificial/acrylic nails must be removed from [...] please call the Preadmission Testing office at [phone], Mon.-Fri. 7 a.m.-3 p.m. Leave a voicemail if needed. Pre-Surgery Instructions: Medication Instructions amLODIPine (NORVASC) 5 mg tablet Take morning of procedure olmesartan (BENICAR) 20 mg tablet Stop taking 0 days prior to procedure ibuprofen (MOTRIN) 400 mg tablet Stop now jbkhckxu-lvet-YX-calcium &mins (THERAGRAN-M) 9 mg iron-400 mcg tablet Stop taking 0 days prior to procedure documented in this encounterNewark Hospital11-05-2024 History of Present illness Narrative* Rossana Miller, [...] GERD (gastroesophageal reflux disease) Hepatitis HTN (hypertension) ([facility]) Hyperlipidemia ([facility]) ALLERGIES: No Known Allergies VITALS: Visit Vitals [...] Comments denies dribbling. Incontinence denies. Musculoskeletal: CommentsSee [facility] for details. Skin: Rash denies. Neurologic: Dizziness [...] Dr. Miller/sukhdev Miller D.O. documented in this encounterReynolds County General Memorial HospitalAhlsrfdzuk46-85-5145 History of Present illness Narrative* Eula Castillo [...] to discuss surgical intervention. documented in this encounterReynolds County General Memorial HospitalYiujejfrlf05-55-4749 History of Present illness Narrative* Jorge Desai MD - 01/24/2024 3:20 PM EDT SPINE SURGERY FOLLOW UP This is a virtual visit using [employer] Zoom Video Visit. It required patient- provider interaction for the medical decision making as documented below. I have communicated my name and active licensure. The patient's identity and physical location wereverified at the time of this visit. Either the patient or their legal outside sales account representative has been informed of the risks [...] visit. Either the patient or their legal outside sales account representative has been informed of the risks [...] TIME: 8:43 AM PAGER: documented in this encounterCommunity Memorial Hospital07-17-2024 NoteHNO ID: [id number] Author: JORGE DESAI MD Service: ? Author Type: Physician Type: Progress Notes Filed: 01/24/2024 18:28 Note Text: SPINE SURGERY FOLLOW UP This is a virtual visit using [employer] Zoom Video Visit. It required patient-provider interaction for the medical decision making as documented below. I have communicated my name and active licensure. The patient's identity and physical location were verified at the time of this visit. Either the patient or their legal outside sales account representative has been informed of the risks [...] visit. Either the patient or their legal outside sales account representative has been informed of the risks [...] DATE: January 24, 2024 TIME: 8:43 AM PAGER:[facility] HospitalSvsybvam12-32-8202 Telephone encounter Note* Telephone Encounter - Debbi Brizuela RN - 01/24/2024 2:04 PM EDT Signed form faxed to number requested. Faxed verification received. [facility]07-17-2024 Miscellaneous Notes* Telephone Encounter - Debbi Brizuela RN - 01/24/2024 2:04 PM EDT Signed form faxed to number requested. Faxed verification received. * Telephone Encounter - Debbi Brizuela RN - 01/23/2024 2:26 PM EDT Printed for review and signature. * Telephone Encounter - Emily Ellis - 01/23/2024 1:46 PM EDT [facility] Progress Note scanned to [facility] for review and signature documented in this encounterCommunity [facility] Telephone encounter Note * Telephone Encounter - Debbi Brizuela RN - 01/23/2024 2:26 PM EDT Printed for review and signature. [facility]07-16-2024 Telephone encounter Note* Telephone Encounter - Emily Ellis - 01/23/2024 1:46 PM EDT [facility] Progress Note scanned to [facility] for review and signature [facility]07-08-2024 NoteHNO ID: [id number] Author: MELONIE GRANADO RT(R) Service: ? Author [...] PATIENT PRESENTS WITH AN IMPLANTABLE OR ATTACHED PRECISION CROP MANAGER: No RADIOLOGY DEPARTMENT: General X-ray: Exam(s) Completed: Spine X-Ray(s): Lumbar AP / LAT / L5-S1 PERIPHERAL IV DATA: Not applicable SIGNED BY: RT Tom(R) January 15, 2024 10:42 [facility]07-08-2024 History of Present illness Narrative* Melonie Granado RT(R) - 01/15/2024 10:42 AM EDT Radiology Service [...] PATIENT PRESENTS WITH AN IMPLANTABLE OR ATTACHED PRECISION CROP MANAGER: No RADIOLOGY DEPARTMENT: General X-ray: Exam(s) Completed: Spine X-Ray(s): Lumbar AP / LAT / L5-S1 PERIPHERAL IV DATA: Not applicable SIGNED BY: RT Tom(R) January 15, 2024 10:42 AM documented in this encounterCommunity [facility]06[facility]24 NoteHNO ID: [id number] Author: LITZY TODD APRN.DIABETOLOGIST Service: ? Author Type: Nurse Practitioner Type: [...] which included preparing to see the patient, zfwj-id-mgws patient care, completing clinical documentation, obtaining and/or reviewing separately obtained history, performing a medically appropriate examination, counseling and educating the patient/family/caregiver, and ordering medications, tests, or procedures. SIGNATURE: Litzy Todd APRN.CNP PATIENT NAME: Christian Noyola DATE: December 28, 2023 TIME: 12:52 PM PAGER:[id number] History of Present illness Narrative* Litzy Todd [...] which included preparing to see the patient, tsmo-fh-bbfb patient care, completing clinical documentation, obtaining and/or reviewing separately obtained history, performing a medically appropriate examination, counseling and educating the pat ient/family/caregiver, and ordering medications, tests, or procedures. SIGNATURE: Litzy Todd APRN.CNP PATIENT NAME: Christian Noyola DATE: December 28, 2023 TIME: 12:52 PM PAGER: documented in this encounterCommunity [facility]06-[facility]24 Telephone encounter Note * Telephone Encounter [...] changes or If her fever/ chills return. [facility]06-10-2024 Miscellaneous Notes* Telephone Encounter - Vinod Morton RN - [...] Please call and advise Pt phone # [phone] documented in this encounterCommunity [facility]06[facility]24 Telephone encounter Note * Telephone Encounter - Emily Ellis - 12/18/2023 9:27 AM EDT Pt phoned reporting fever with chills on Saturday 12/16 post op. Surgery was Thursday 12/14. Please call and advise Pt phone # [phone] [facility]06-08-2024 NoteHNO ID: [id number] Author: MAURIZIO FITCH RN Service: Nursing Author Type: Registered Nurse Type: Progress Notes Filed: 12/16/2023 15:19 Note Text: Pt dc home with daughter , all needs met questions answered pt verb understanding [facility]06-08-2024 NoteHNO ID: [id number] Author: LUCIANO BOSCH MD Service: General Internal [...] MD DATE: December 16, 2023 TIME: 11:[address] [facility]06-08-2024 NoteHNO ID: [id number] Author: NOTE, INTERFACE, ? Service: ? Author Type: ? Type: Progress Notes Filed: 12/16/2023 03:26 Note Text: Epic Scheduled Downtime: 12/16/2023 1:00:00 AM to 12/16/2023 3:02:[address] [facility]06-07-2024 NoteHNO ID: [id number] Author: NILDA BORGES APRN.LINUX ADMINISTRATOR Service: ? Author Type: Nurse Erosion Control Specialist Type: Anesthesia Procedure Notes Filed: 12/15/2023 11:39 Note Text: ANESTHESIOLOGY PROCEDURE NOTE Airway General Information Procedure Start Time/Medication Administration: 12/15/2023 11:27 AM Procedure End Time: 12/15/2023 11:27 AM Patient location during procedure: OR Staffing LINUX ADMINISTRATOR: Nilda Borges APRN.LINUX ADMINISTRATOR Performed by: ROBINSON Indications and Patient Condition [...] 1 Airway not difficult SIGNATURE: Nilda Borges APRN.LINUX ADMINISTRATOR PATIENT NAME: Christian Noyola DATE: December 15, 2023 TIME: 11:39 AM CSN: [id number] Telephone encounter Note* Telephone Encounter - Debbi Brizuela RN - 12/05/2023 2:54 PM EDT Spoke with patient and answered questions. Patient also needs a refill of gabapentin. Confirmed pharmacy. [facility]05-28-2024 Miscellaneous Notes* Telephone Encounter - Debib Brizuela RN - 12/05/2023 2:54 PM EDT Spoke with patient and answered questions. Patient also needs a refill of gabapentin. Confirmed pharmacy. * Telephone Encounter - Maura Henley - 12/05/2023 11:54 AM EDT Patient would like to speak to the nurse regarding her medications before her surgery on December 14. She can be reached at [phone] documented in this encounterCommunity [facility]05-[facility]24 Telephone encounter Note * Telephone Encounter - Maura Henley - 12/05/2023 11:54 AM EDT Patient would like to speak to the nurse regarding her medications before her surgery on December 14. She can be reached at [phone] [facility]05-08-2024 Instructions* Patient Instructions* Georgette Santos APRN.DIABETOLOGIST - 11/15/2023 1:10 PM EDT PATIENT PREOPERATIVE INSTRUCTIONS Jorge Desai MD has scheduled you for your procedure at this surgery center: [facility]: [phone] --[address] [place] [address]. On your scheduled day of surgery, please [...] Procedures: - YOU MUST HAVE A RESPONSIBLE LEAD SOFTWARE DEVELOPMENT ENGINEER TAKE YOU HOME. A COMMERCIAL FRONT LOAD OPERATOR OR WILDLIFE BIOLOGIST CANNOT BE MADE A RESPONSIBLE LEAD SOFTWARE DEVELOPMENT ENGINEER. - We recommend that a responsible person [...] Advance Directive, please fax a copy to [phone] or email to for it to be [...] into your chart that day. Georgette Santos APRN.CNP documented in this encounterCommunity [facility]05-[facility]-2024 History and physical note * Georgette Santos APRN.DONTE - 11/15/2023 1:00 PM [...] 35 kg/m^2 Non-male patient STOP-Bang Score: 3 [id number] Score: Age: 65-74 Sex: female CHF history: No Hypertension history: Yes Stroke/TIA/thromboembolism history: No Vascular disease history: No Diabetes history: No [id number] Score: 3 ARISCAT Score: Age: 51-80 Preoperative [...] Prior to Admission medications as of 11/15/23 8887 Medication Sig Last Dose Taking amLODIPine (NORVASC) [...] fevers. Neuro: No history of TIA's, stroke, HOSPITAL DIRECTOR tumor, impaired sensorium, hemiplegia, paraplegia or quadraplegia. No neurological symptoms or problems. Respiratory: No history of current cough or dyspnea, or pneumonia in the past 6 weeks. No history of respiratory/pulmonary symptoms or problems. Cardiovascular: Positive for: Hypertension no history of angina, CHF, [place], cardiac surgery or stents. Denies rest pain, gangrene or revascularization/amputation for PVD GI: No history of GI symptoms or problems. No history of esophageal varices, recent ascites, or ETOH greater than 2 drinks per day. : No history of dysuria, frequency or incontinence,, stones or chronic kidney disease, No difficulty urinating, nocturia > 1 time per night or hematuria BUCK PRESSER: Negative for abnormal vaginal bleeding, abnormal vaginal [...] Christian Noyola DATE: 11/15/2023 TIME: 1:27 PM [facility]05-08-2024 History and physical note* Georgette Santos APRN.CNP - 11/15/2023 1:00 PM [...] 35 kg/m^2 Non-male patient STOP-Bang Score: 3 [id number] Score: Age: 65-74 Sex: female CHF history: No Hypertension history: Yes Stroke/TIA/thromboembolism history: No Vascular disease history: No Diabetes history: No [id number] Score: 3 ARISCAT Score: Age: 51-80 Preoperative [...] Covid Immunization Dates Overdue - Covid-19 Vaccine (8 - 2023-24 season) Overdue since 08/04/2023 04/04/2023 Imm Admin: [...] fevers. Neuro: No history of TIA's, stroke, HOSPITAL DIRECTOR tumor, impaired sensorium, hemiplegia, paraplegia or quadraplegia. No neurological symptoms or problems. Respiratory: No history of current cough or dyspnea, or pneumonia in the past 6 weeks. No history of respiratory/pulmonary symptoms or problems. Cardiovascular: Positive for: Hypertension no history of angina, CHF, [place], cardiac surgery or stents. Denies rest pain, gangrene or revascularization/amputation for PVD GI: No history of GI symptoms or problems. No history of esophageal varices, recent ascites, or ETOH greater than 2 drinks per day. : No history of dysuria, frequency or incontinence,, stones or chronic kidney disease, No difficulty urinating, nocturia > 1 time per night or hematuria BUCK PRESSER: Negative for abnormal vaginal bleeding, abnormal vaginal [...] voices comprehension and compliance. SIGNATURE: Georgette Santos APRN.DIABETOLOGIST PATIENT NAME: Christian Noyola DATE: 11/15/2023 TIME: 1:27 PM documented in this encounterCommunity [facility]02-27-2024 Miscellaneous Notes* Telephone Encounter - Debbi Brizuela RN - 09/05/2023 9:49 AM EST Surgery date moved to 12/15/23. * Telephone Encounter - Tanya Sahni - 09/05/2023 9:26 AM EST Patient called to speak with Dr Desai's nurse. She would like to accept a surgery date of MondayDecember 14. She will wait for it to show up on her MyChart. documented in this encounterCommunity [facility]02-26-2024 NoteHNO ID: [id number] Author: JORGE DESAI MD Service: ? Author [...] outcomes of the proc (more content not included)...[facility] [id number] Evaluation note* Encounter Date Diagnosis Assessment Notes [...] ARB and increase Amlodipine to 5mg bid [employer] Other 11-09-2023 Evaluation note* Encounter Date Diagnosis Assessment Notes Treatment Notes Treatment Clinical Notes May, Primary hypertension (ICD-10 - I 10) [facility] Other 11-02-2023 Evaluation note* Encounter Date Diagnosis [...] and applesauce. Stool softener and Miralax optional [facility] Other 09-12-2023 Evaluation note* Encounter Date Diagnosis Assessment Notes Treatment Notes Treatment Clinical Notes Mar, Primary hypertension (ICD-10 - I 10) [facility] Other 08-13-2023 Evaluation note* Encounter Date Diagnosis Assessment Notes Treatment Notes Treatment Clinical Notes Feb, Primary hypertension (ICD-10 - I 10) [facility] Other 08-03-2023 Evaluation note* Encounter Date Diagnosis Assessment Notes Treatment Notes Treatment Clinical Notes Feb, Primary hypertension (ICD-10 - I 10) [facility] Other 05-30-2023 NoteCONSULTATION CONSULTATION DATE: 12/06/2022 TO: [...] our patients to inform us about any ccdc-hwl-ftgwmzh medications or herbal remedies/nutritional supplements/alternative remedies. 2. [...] treatment options with their primary care provider.[id number] Note CONSULTATION CONSULTATION DATE: 11/03/2022 TO: Jordan [...] our patients to inform us about any vlbo-qnp-fxwynax medications or herbal remedies/nutritional supplements/alternative remedies. 2. [...] treatment options with their primary care provider.[facility] [id number] Note CONSULTATION CONSULTATION DATE: 10/06/2022 TO: Jordan [...] regimen of Neurontin 300 mg b.i. d.[facility] [id number] Miscellaneous Notes* Telephone Encounter - Debbi Brizuela RN - 09/09/2022 2:52 PM EST Will forward for review. Scan on 09/08/2022 2:37 PM by External Provider: Spine Injection * Telephone Encounter - Tanya Navarro - 09/09/2022 2:44 PM EST Received spine injection report by fax. Scanned to patient's chart for provider review. documented in this encounterCommunity [facility] Hospital03-02-2023 NoteCONSULTATION CONSULTATION DATE: 09/08/2022 HISTORY: This is a very pleasant, 72-year-old female who returns to the clinic, status post lumbar epidural steroid injection completed on 08/02/2022. The patient states she received 25% relief for 2-3 weeks. Patient was seen by Dr. Desai [facility]. The patient does have multilevel [...] care will be established at that time.[facility] 09-05-2022 History of Present illness Narrative* [...] 2022 at 1:23 PM. documented in this encounterCommunity [facility]01-10-2023 NoteCONSULTATION CONSULTATION DATE: 07/19/2022 HISTORY OF [...] The patient is hoping to go to [place] in a few weeks. We have also strongly recommended to the patient for a neurosurgical consult, given the multiple levels the patient has pathology. I believe the surgical consult will also help define for the patient progression components. In the interim, the patient will also continue with extension exercises. The patient understands and would like to proceed. CC: Jordan Avitia D.O.[facility]al[facility] note* Diagnosis Degenerative scoliosis- Primary documented in this encounter [facility] noteNo [facility] [employer] Other Evaluation note* Diagnosis Pre-op testing- Primary Preoperative examination, unspecified Spinal stenosis, lumbar region with neurogenic claudication documented in this encounter [facility] note* Diagnosis Pre-op evaluation- Primary Preoperative examination, unspecified Pre-op testing Preoperative examination, unspecified Primary hypertension Unspecified essential hypertension Pain in right hip Pain in joint, pelvic region and thigh Pain, unspecified Spinal stenosis, lumbar region with neurogenic claudication * Assessment & Plan Note - Georgette Santos APRN.DIABETOLOGIST - 11/15/2023 12:41 PM EDTAssociated Problem(s): Primary hypertension Assessment: Stable on medication Today To take medication morning of surgery documented in this encounter [facility] note* Diagnosis S/P lumbar fusion- Primary Arthrodesis status documented in this encounter [facility] note* Diagnosis S/P lumbar fusion Arthrodesis status documented in this encounter [facility] note* Diagnosis Lumbar stenosis with neurogenic claudication- Primary Spinal stenosis, lumbar region, with neurogenic claudication documented in this encounter [facility] note* Diagnosis Onset Date Resolution Status GERD (gastroesophageal reflux disease) acuteHypercholesterolemiaacuteHypertensionacuteLumbar spondylosisacuteMultiple sclerosisacuteMedicare annual wellness visit, subsequentnoneactiveScreening mammogram for breast cancernonctive [facility] Work Phone: Evaluation note* Diagnosis Onset Date Resolution Status GERD (gastroesophageal reflux disease) acuteHypercholesterolemiaacuteHypertensionacuteLumbar spondylosisacuteMedicare annual wellness visit, subsequentnoneactiveScreening mammogram for breast cancer noneactive [facility] Work Phone: Evaluation note* Diagnosis Onset Date Resolution Status GERD (gastroesophageal reflux disease) acuteHypercholesterolemiaacuteHypertensionacuteLumbar spondylosisacuteMedicare annual wellness visit, subsequentnoneactiveScreening mammogram for breast cancer noneactiveIFG (impaired fasting glucose)acuteTrigger fingeracute [facility] Work Phone: Evaluation note* Diagnosis Pain of right thumb- Primary Trigger finger of right thumb [facility] Diagnosis Pain of right thumb- Primary Trigger finger of right thumb [facility] Diagnosis Trigger finger of right thumb- Primary documented in this encounter [facility]Evaluation [facility]* Diagnosis S/P trigger finger release- Primary documented in this encounter [facility]Evaluation note* Diagnosis S/P trigger finger release- Primary Carpal tunnel syndrome of right wrist documented in this encounter [facility]Evaluation note* Diagnosis Onset Date Resolution Status Admit Date Abdominal pain acuteAugust 2024 1:41pmAbnormal CT scan, pelvisacuteAugust 2024 1:41pm GERD (gastroesophageal reflux disease)acuteAugust 2024 1:41pm HypercholesterolemiaacuteAugust 2024 1:41pmHypertensionacuteAugust 2024 1:41pmIFG (impaired fasting glucose)acuteAugust 2024 1:41pmLumbar spondylosisacuteAugust 2024 1:41pmMedicare annual wellness visit, subsequentnoneactiveAugust 2024 1:41pm [facility] Work Phone: Evaluation note* Diagnosis Thumb pain, left- Primary Trigger finger of left thumb documented in this encounter [facility]* Diagnosis Trigger finger of left thumb- Primary Pain of left thumb documented in this encounter [facility] HealthcareEvaluation note* Diagnosis Pre-op exam- Primary documented in this encounter [facility] HealthcareEvaluation note* Diagnosis Onset Date Resolution Status Admit Date Abdominal pain acuteNov2024 10:18amGERD (gastroesophageal reflux disease)acute May 20, 2025 10:18amHypercholesterolemiaacuteNovember 2024 10:18am HypertensionacuteNovember 2024 10:18amIFG (impaired fasting glucose)acute May 20, 2025 10:18amLumbar spondylosisacuteNovember 2024 10:18am [facility] Work Phone: History general Narrative - Reported* Type Description Date Medical History MS (multiple sclerosis) Medical HistoryGastroesophageal reflux disease with esophagitis without hemorrhageMedical HistoryPrimary hypertensionMedical HistoryValgus deformity, not elsewhere classified, right ankleMedical HistoryArthritis of right shoulder regionMedical HistoryLumbar spondylosisMedical HistoryHyperlipidemia type II Surgical Historyback surgery x's 2Hospitalization HistorySEE SURGICAL HX [facility] [employer] Other Hospital Discharge instructionsAmbulatory Orders* Referral to Orthopedic Surgery Location: None [facility] Work Phone: InstructionsNot on filedocumented in this encounter [facility]Reason [facility] (narrative)* Outpatient Procedure (Routine) - Pending ReviewSpecialtyDiagnoses / ProceduresReferred By Contact [facility] Diagnoses Pre-op evaluation Pre-op testing Procedures ECG COMPLETE ECG ROUTINE ECG W/LEAST 12 LDS W/I&R Georgette Santos INFORMIX DEVELOPER.DIABETOLOGIST [address] [place] [address] [facility] [place] [address] [place] [address] Referral IDStatusReasonStart DateExpiration DateVisits RequestedVisits [id number] Review Auto-Generated Referral [facility] (narrative)* Diagnostic Procedure Only (Routine) - Pending ReviewSpecialtyDiagnoses / ProceduresReferred By Contact Referred To ContactXR IMAGING Diagnoses S/P lumbar fusion Procedures XR LUMBAR LIMITED 2V AP/LAT RADEX SPINE LUMBOSACRAL 2/3 VIEWS Litzy Todd, INFORMIX DEVELOPER.DIABETOLOGIST [address] [place] [address] [place] [address] Referral IDStatusReasonStdorchester DateExpiration DateVisits RequestedVisits [id number] Review Auto-Generated Referral * Physical Therapy (Routine) - AuthorizedSpecialtyDiagnoses / ProceduresReferred By ContactReferred To ContactREHAB AND SPORTS THERAPY INS Diagnoses S/P lumbar fusion Procedures CONSULT TO PHYSICAL THERAPY PHYSICAL THERAPY EVALUATION HIGH COMPLEX 45 MINS Litzy Todd, INFORMIX DEVELOPER.DIABETOLOGIST [address] [id number] [facility] [place] [address] [place] [address] Referral IDStatusReasonStart DateExpiration DateVisits RequestedVisits [id number] PCP Requested Referral Auto-Generated Referral [facility] for referral (narrative)* Diagnostic Procedure Only (Routine) - ClosedSpecialtyDiagnoses / ProceduresReferred By ContactReferred To ContactXR IMAGING Diagnoses S/P lumbar fusion Procedures XR LUMBAR LIMITED 2V AP/LAT RADEX SPINE LUMBOSACRAL 2/3 VIEWS Litzy Todd, INFORMIX DEVELOPER.DIABETOLOGIST [address] [place] [address] [facility] Referral IDStatusReasonStart DateExpiration DateVisits RequestedVisits [id number] Auto-Generated Referral [facility] for referral (narrative)No reason for referral information availableU[facility] Work Phone: [facility] Narrative* Diagnostic Procedure Only (Routine) - ClosedSpecialtyDiagnoses / ProceduresReferred By ContactReferred To ContactXR IMAGING Diagnoses S/P lumbar fusion Procedures XR LUMBAR LIMITED 2V AP/LAT RADEX SPINE LUMBOSACRAL 2/3 VIEWS Litzy Todd, INFORMIX DEVELOPER.DIABETOLOGIST [address] [id number] [place] [address] Referral IDStatusReasonStart DateExpiration DateVisits RequestedVisits [id number] Auto-Generated Referral [facility] Summary Purpose Family History Relationship Condition Age at Onset Recorded Date/T flora father Unknown Diabetes mellitusUnknownMalignant neoplasmUnknownfatherMalignant neoplasmUnknown motherDeceasedUnknownHeart diseaseUnknownHypertensionUnknown Advance Directives TypeDate RecordedPatient RepresentativeExplanationAdvance Directive(s)12/15/2023 7:18 AMTypeDate RecordedPatient RepresentativeExplanationAdvance Directive(s) 12/15/2023 7:18 AM Advance Directive Response Recorded Date/ Time Advance Directives No February 07 10:53am Advance Directive Response Recorded Date/ Time Advance Directives No February 07 9:53am Reason for Referral SpecialtyDiagnoses / ProceduresReferred By ContactReferred To Contact Diagnoses Pre-op testing Procedures REFER TO PACC - PRE ANESTHESIA CONSULTATION CLINIC OFFICE/OUTPATIENT [facility] 60 MINUTES Jodi Vega PA-C [address] [place] [id number] Referral IDStatusReasonStart DateExpiration DateVisits RequestedVisits [id number] PCP Requested Referral Chief Complaint and Reason for Visit Chief [...] 2025 1:4 1pm Medicare annual wellness visit, joseph nt February 11, 2025 1:41pm Chief Complaint Admit Date 3 month/surgical clearance May 10:18am Reason for Visit Admit Date Abdominal pain May 20, 2025 10:18am GERD (gastroesophageal reflux disease) N ovember 2024 10:18am Hypercholesterolemia May 20, 2025 10:18am Hypertension May 20, 2025 10:18am IFG (impaired fasting glucose) May 20, 2025 10:18am Lumbar spondylosis May 20, 2025 10:18am Additional Source Comments INFORMATION SOURCE (unrecogn ized section and content) DATE CREATED AUTHOR 08/26/2021 [facility] DATE CREATED AUTHOR AUTHOR'S ORGANIZ ATION 12/16/2022 [facility] DATE CREATED AUTHOR AUTHOR'S ORGANIZ ATION 02/28/2023 [facility] DATE CREATED AUTHOR AUTHOR'S ORGANIZ ATION 12/18/2023 [facility] DATE CREATED AUTHOR AUTHOR'S ORGANIZ ATION 01/16/2024 [facility] DATE CREATED AUTHOR AUTHOR'S ORGANIZ ATION 01/28/2024 [facility] DATE CREATED AUTHOR AUTHOR'S ORGANIZ ATION 05/16/2024 [facility] DATE CREATED AUTHOR AUTHOR'S ORGANIZ ATION 05/19/2025 [facility] EPIC Source Comments (unrecognize d section and content) In the event this informatio n is protected by the Federal Confidentiality of Alcohol and Drug Abuse Patient Records regulations: The Federal rules restrict any use of the information to criminally investigate or prosecute any alcohol or drug abuse patient.[facility] HospitalIn the event this information is protected by the Federal Confidentiality of Alcohol and Drug Abuse Patient Records regulations: The Federal rules restrict any use of the information to criminally investigate or prosecute any alcohol or drug abuse patient.[facility] HospitalIn the event this information is protected by the Federal Confidentiality of Alcohol and Drug Abuse Patient Records regulations: The Federal rules restrict any use of the information to criminally investigate or prosecute any alcohol or drug abuse patient.[facility] HospitalIn the event this information is protected by the Federal Confidentiality of Alcohol and Drug Abuse Patient Records regulations: The Federal rules restrict any use of the information to criminally investigate or prosecute any alcohol or drug abuse patient.[facility] HospitalIn the event this information is protected by the Federal Confidentiality of Alcohol and Drug Abuse Patient Records regulations: The Federal rules restrict any use of the information to criminally investigate or prosecute any alcohol or drug abuse patient.[facility] HospitalIn the event this information is protected by the Federal Confidentiality of Alcohol and Drug Abuse Patient Records regulations: The Federal rules restrict any use of the information to criminally investigate or prosecute any alcohol or drug abuse patient.[facility] HospitalIn the event this information is protected by the Federal Confidentiality of Alcohol and Drug Abuse Patient Records regulations: The Federal rules restrict any use of the information to criminally investigate or prosecute any alcohol or drug abuse patient.[facility] HospitalIn the event this information is protected by the Federal Confidentiality of Alcohol and Drug Abuse Patient Records regulations: The Federal rules restrict any use of the information to criminally investigate or prosecute any alcohol or drug abuse patient.[facility] HospitalIn the event this information is protected by the Federal Confidentiality of Alcohol and Drug Abuse Patient Records regulations: The Federal rules restrict any use of the information to criminally investigate or prosecute any alcohol or drug abuse patient.[facility] HospitalIn the event this information is protected by the Federal Confidentiality of Alcohol and Drug Abuse Patient Records regulations: The Federal rules restrict any use of the information to criminally investigate or prosecute any alcohol or drug abuse patient.[facility] HospitalIn the event this information is protected by the Federal Confidentiality of Alcohol and Drug Abuse Patient Records regulations: The Federal rules restrict any use of the information to criminally investigate or prosecute any alcohol or drug abuse patient.[facility] HospitalIn the event this information is protected by the Federal Confidentiality of Alcohol and Drug Abuse Patient Records regulations: The Federal rules restrict any use of the information to criminally investigate or prosecute any alcohol or drug abuse patient.[facility] Reason for Visit (unrecogniz ed section and content) ReasonCommentsNewReasonCommentsReceived Outside Medical RecordsReasonComments Surgery DateSpecialtyDiagnoses / ProceduresReferred By ContactReferred To Contact Diagnoses Pre-op testing Procedures REFER TO [facility] - PRE ANESTHESIA CONSULTATION CLINIC OFFICE/OUTPATIENT [facility] HIGH MDM 60 MINUTES Jodi Vega PA-C [address] [place] [address] Referral IDStatusReasonStart DateExpiration DateVisits RequestedVisits [id number] PCP Requested Referral [id number] OpReasonCommentsRadiology XRReason CommentsCare Coordinator - OtherReasonCommentsFollow UpReasonCommentsFeverReason CommentsPainReasonCommentsPre-op Visit Care Teams (unrecognized sec tion and content) [...] DateEnd Date Jordan Avitia MD [address] [id number] PCP - GeneralInternal Oqdimnzm34/30/23Team MemberRelationshipSpecialtyStart Date End Date Jordan Avitia MD [address] [place] [address] PCP - GeneralInternal Rtslfmwx80/30/23Team MemberRelationshipSpecialtyStart Date End Date Jordan Avitia MD [address] [place] [address] PCP - GeneralInternal Lccvaayw42/30/23Team MemberRelationshipSpecialtyStart Date End Date Jordan Avitia MD [address] [place] [address] PCP - GeneralInternal Skkmlsko73/30/23Team MemberRelationshipSpecialtyStart Date End Date Jordan Avitia MD [address] [place] [address] PCP - GeneralInternal Veklnoue79/30/23Team MemberRelationshipSpecialtyStart Date End Date Jordan Avitia MD [address] [place] [facility] [address] PCP - GeneralInternal Vprgpdpf33/30/23Team MemberRelationshipSpecialtyStart Date End Date Jordan Avitia MD [address] [phone] PCP - GeneralInternal Igecydhl79/30/23Team MemberRelationshipSpecialtyStart [place] [address] [place], [place] [phone] PCP - GeneralInternal Joefcfmv21/5/24 Team Status: Inactive Member Role Status Dates Jordan Avitia DO Primary Care Provider Active Start: February 11, 2025 End: February 11enjazaid Avitia DOAttending ProviderActiveStart: February 11, 2025 End: February 11, 2025Team MemberRelationshipSpecialtyStart DateEnd Date Jordan Avitia DO PCP - GeneralInternal Bjjvoycl56/30/23Team MemberRelationshipSpecialtyStart Date End Date Jordan Avitia DO PCP - GeneralInternal Jyiaanfj93/30/23Team MemberRelationshipSpecialtyStart Date End Date Jordan Avitia DO [address] [place] [address] PCP - GeneralInternal Medicine04/07/25Team MemberRelationshipSpecialtyStart Date End Date Jordan Avitia DO [address] [facility] [place] [phone] PCP - GeneralInternal Medicine04/07/25Team MemberRelationshipSpecialtyStart Date End Date Jordan Avitia DO [address] [facility] [place] [phone] PCP - GeneralInternal Medicine04/07/25 Team Status: Active Member Role/Relationship Status Dates Jordan Avitia Primary Care Provider Active Team Status: Active Member Role/Relationship Status Dates Jordan Avitia DO Primary Care Provider Active Start: May 15, 2025 Jordan Avitia DOMurphydirk ProviderActiveStart: May 15, 2025 Team Status: Inactive Member Role/Relationship Status Dates Jordan Avitia DO Primary Care Provider Active Start: May 20, 2025 End: May 20encharleszaid Avitia DOMurphydirk ProviderActiveStart: May 20, 2025 End: May 20, 2025 Goals (unrecognized section and content) Goals [...] BE BASED ON THE PRIMARY CLINICAL RECORDS. [facility]. provides no warranty or guarantee of the accuracy or completeness of information in this document.
--- NOTE | 2025-05-30 08:11 | CT_ITS ---
The [address] [address] Patient Name: CHRISTIAN FISCHER MRN: [id number] date: 1950 Sex: F Assigned Patient Location: LAB Current Patient Location: LAB Accession/Order Number: [id number] Exam Date: 05/30/2025 09:20 Report Date: 05/30/2025 10:00 At the request of: BERNADETTE AVITIA DO Procedure: CT abdomen pelvis w con CT ABDOMEN AND PELVIS WITH CONTRAST COMPARISON: None CLINICAL DATA: Lower abdominal pain and constipation. Spiral images were obtained through the abdomen and pelvis following oral and 100 mL of Omnipaque 300. This CT exam was performed using one or more following dose reduction techniques: Automated exposure control, adjustment of the mA and/or kV according to patient size, or use of iterative reconstruction technique. Limited cuts through the lung bases show no contributory findings. There is fatty infiltration of the liver. No calcified gallstones are noted. The spleen and adrenal glands show no acute findings. The pancreas is atrophic. The renal nephrograms are symmetric. There are suspected parapelvic cysts on the left. No hydronephrosis is seen. There is atherosclerotic plaque at the aorta, iliac and some of the visceral arteries. No enlarged lymph nodes or ascites are seen. The small bowel loops are not distended. There is mild to moderate stool throughout the colon. Left-sided colonic diverticula are visualized. Levoscoliotic curvature as well as postoperative changes are seen at the spine. Images through the pelvis show no dilated small bowel. The appendix is not definitely seen. There is air and additional mild to moderate colonic stool at the distal colon. Descending and sigmoid diverticula are present. No active inflammation is seen. No adnexal cysts are identified. The urinary bladder is not well-distended for evaluation. There is no ascites. There is a tiny periumbilical hernia containing fat. CT/CT abdomen pelvis w con IMPRESSION: Fatty liver. No bowel or urinary tract obstruction. Mild to moderate colonic stool. Diverticulosis. Impression dictated by: Malka Galarza M.D. 05/30/2025 10:00 AM Dictation Location: [place] [address] Electronically authenticated by: [id number] Y Date: 05/30/2025 10:00
[2025-05-30 08:18] LABS: Estimated GFR (African America 48 (>=60 mL/min/1.73m^2); Estimated GFR (Non-African Ame 39 (>=60 mL/min/1.73m^2)
== END 2025-05-30 08:02 | disposition home or self-care (01) ==
LOC: LAB 08:01
PROVIDERS: Pathology Anatomic Pathology & Clinical Pathology; PCP Internal Medicine; Visit Provider Internal Medicine
DX: R10.32 Left lower quadrant pain (principal); K59.00 Constipation, unspecified
CPT/HCPCS: 36415; 74177; 82565; Q9967